=== PATIENT | female | born 1950 | race Caucasian/White ===

== ENCOUNTER → 2020-07-16 11:24 | Outpatient (BNVA) | payer OTHER, SELFPAY | PROVIDERS: PCP Internal Medicine; Visit Provider Internal Medicine Pulmonary Disease | DX: J45.20 Mild intermittent asthma, uncomplicated (principal) | CPT/HCPCS: 99212 ==

== ENCOUNTER → 2020-08-03 09:53 | Outpatient (REF) | payer OTHER, SELFPAY ==
--- NOTE | 2020-08-03 09:59 | CA_ITS ---
Acquisition Time: 2020-08-03 11:15:12 Total Exercise Time: 00:05:02 Test Indications: Chest Pain Medications: SEE CHART Protocol: SONNY Max HR: 155 BPM 104% of Pred: 148 BPM Max BP: 150/080 mmHG Max Work Load: 5.4 METS Exercise stress test using Sonny protocol. Test modified at 4 min, speed and incline decresed. Pt did total of 5 min 2 sec. METS 5.4. Pt became SOB, HX of asthma, denies any other anginal sx. EKG without any arrhythmias, Scooped ST depressions seen inferiorly and laterally. Normotensive response to exercise. Test reviewed with Dr Nunez. Albuterol 2 puffs given to pt at the end of exercise. Recommendation for pt to have lexiscan nuclear d/t ischemic changes during exercise stress test. Pt had lexiscan in 2017. Referred By: Junior Zayas Overread By: Zachary Kennedy
--- NOTE | 2020-08-03 09:59 | ECG_ITS ---
Test Reason : CHEST PAIN Blood Pressure : / mmHG Vent. Rate : 072 BPM Atrial Rate : 072 BPM P-R Int : 126 ms QRS Dur : 080 ms QT Int : 396 ms P-R-T Axes : 064 025 014 degrees QTc Int : 433 ms Normal sinus rhythm RSR' or QR pattern in V1 suggests right ventricular conduction delay Otherwise normal ECG When compared with ECG of 30-MAY-2020 19:57, No significant changes seen Referred By: Junior Zayas Electronically Signed By:HEMAL FLORES MD
== END ==
LOC: HO.CARD 09:53
PROVIDERS: PCP Internal Medicine; Visit Provider Internal Medicine Pulmonary Disease
DX: R07.9 Chest pain, unspecified (principal); I10 Essential (primary) hypertension; I25.10 Atherosclerotic heart disease of native coronary artery without angina pectoris; J45.20 Mild intermittent asthma, uncomplicated
CPT/HCPCS: 93005; 93017

== ENCOUNTER 2020-08-10 07:49 | Outpatient (REF) | payer MEDICARE, SELFPAY ==
[2020-08-10 09:12] LABS: Anion Gap 14 (12-20); Blood Urea Nitrogen 9 mg/dL (9-16); Calcium 8.8 mg/dL (8.4-10.2); Carbon Dioxide 26 mmol/L (22-29); Chloride 105 mmol/L (96-108); Estimated Glomerular Filt Rate > 60; Glucose Random 163 mg/dL (60-115); Potassium 4.2 mmol/l (3.3-5.1); Sodium 141 mmol/L (135-145)
== END 2020-08-10 07:50 | disposition home or self-care (01) ==
LOC: HO.MAMMO 07:49
PROVIDERS: PCP Internal Medicine; Visit Provider Internal Medicine
DX: Z01.818 Encounter for other preprocedural examination (principal); K21.9 Gastro-esophageal reflux disease without esophagitis; I25.10 Atherosclerotic heart disease of native coronary artery without angina pectoris; Z79.4 Long term (current) use of insulin; I10 Essential (primary) hypertension; E11.65 Type 2 diabetes mellitus with hyperglycemia
CPT/HCPCS: 80048

== ENCOUNTER 2020-08-23 13:07 | Outpatient (REF) | payer MEDICARE, SELFPAY ==
--- NOTE | 2020-08-23 14:50 | PFT_ITS ---
FLOWS: FEV1 of 94% of predicted at 1.82 L. FVC 87% of predicted at 2.24 L. FEV1 to FVC ratio of 0.81. Bronchodilator testing not performed. LUNG VOLUMES: Slow vital capacity 96% of predicted at 2.43 L. Expiratory reserve volume 31% of predicted at 0.17 L. Of note, unable to perform lung volumes and FVC maneuvers secondary to the patient's poor compliance with respiratory therapist instructions. Diffusion capacity is mildly decreased, diffusion capacity corrects to normal after adjustment for alveolar ventilation. In comparison to pulmonary function test performed in November of 2013, FEV1 has decreased by 0.27 L; FVC has decreased by 0.36 L. IMPRESSION: No obstructive ventilatory defect. The patient was not able to properly perform lung volume maneuvers. Scott Arriaga MD AP/MODL / [id number]
== END 2020-08-23 13:08 | disposition home or self-care (01) ==
LOC: HO.RESP 13:07
PROVIDERS: PCP Internal Medicine; Visit Provider Internal Medicine Pulmonary Disease
DX: J45.20 Mild intermittent asthma, uncomplicated (principal)
CPT/HCPCS: 94010; 94729

== ENCOUNTER → 2020-09-20 09:21 | Outpatient (BNVA) | payer MEDICARE, SELFPAY | PROVIDERS: PCP Internal Medicine; Visit Provider Nurse Practitioner Gerontology | DX: Z76.89 Persons encountering health services in other specified circumstances (principal) | CPT/HCPCS: Q3014 ==

== ENCOUNTER 2020-09-28 15:54 | Outpatient (REF) | payer OTHER, SELFPAY | END 2020-09-28 15:55 | disposition home or self-care (01) | LOC: HO.LAB 15:54 | PROVIDERS: Visit Provider Internal Medicine | DX: Z20.822 Contact with and (suspected) exposure to COVID-19 (principal) | CPT/HCPCS: 36415; C9803; U0003 ==

== ENCOUNTER → 2020-10-01 07:47 | Outpatient (REF) | payer OTHER, SELFPAY ==
--- NOTE | 2020-10-01 | NM_ITS ---
Myocardial perfusion study Indication: Chest pain to evaluate for myocardial ischemia Technique: The patient was brought in for a Lexiscan perfusion study on 10/01/2020. Patient performed low-level exercise and was injected 0.4 mg of Lexiscan intravenously. Within a minute of injection, 25 mCi of sestamibi was given intravenously. Images were obtained using the SPECT gamma camera interlaced with the gating device. Images were obtained in supine position. Resting perfusion study was performed on 10/04/2020. Patient was administered 25 mCi of sestamibi intravenously at rest. Images were then obtained in supine position. Images obtained with and without CT attenuation. Total DLP 89 mGy-cm. Images were processed with the software and compared side to side in short axis, horizontal long axis and vertical long axis views. Findings: The stress perfusion study showed non attenuated images show normal uptake of radiotracer in all segments of LV myocardium. Attenuation corrected images show mildly reduced uptake in the distal anterior, distal septal and apex of the LV myocardium.. The gated study shows normal LV systolic function with calculated LVEF of 60%. LV cavity is normal size. The gated study shows normal systolic wall thickening and contraction of segments. Resting study shows non attenuated attenuated corrected images show normal uptake of radiotracer in all segments of LV myocardium. Gating at rest reveals normal systolic wall motion with ejection fraction at 67%. The findings are consistent with likely normal myocardial perfusion. NM/NM lyla perf SPECT rest & str Impression: 1. Myocardial perfusion imaging study shows likely normal myocardial perfusion 2. Gated LVEF is 60% 3. Transient ischemic dilatation not present EKG is nondiagnostic for ischemia
--- NOTE | 2020-10-01 07:51 | CA_ITS ---
Acquisition Time: 2020-10-01 08:57:19 Total Exercise Time: 00:02:00 Test Indications: CP Medications: SEE CHART Protocol: LEXISCAN Max HR: 129 BPM 87% of Pred: 148 BPM Max BP: 164/092 mmHG Max Work Load: 1.0 METS Pharmacological stress test using Lexiscan while sitting and kicking her feet. Pt tolerated well, denies any anginal sx. EKG without any arrhythmias, non-diagnostic for ischemia. Nuclear images to follow. Normotensive response to test. Test reviewed with DR. Nunez Referred By: Junior Zayas Overread By: Zachary Kennedy
== END ==
LOC: HO.CARD 07:47
PROVIDERS: PCP Internal Medicine; Visit Provider Internal Medicine
DX: R07.9 Chest pain, unspecified (principal)
CPT/HCPCS: 78452; 93017; A9500; J0280; J2785

== ENCOUNTER 2020-10-14 08:34 | Outpatient (REF) | payer OTHER, SELFPAY ==
[2020-10-14 10:26] LABS: Estimated Average Glucose 148 mg/dL; Hemoglobin A1c % 6.8 %
== END 2020-10-14 08:35 | disposition home or self-care (01) ==
LOC: HO.LAB 08:34
PROVIDERS: PCP Internal Medicine; Referring Provider Internal Medicine; Visit Provider Nurse Practitioner Gerontology
DX: E11.42 Type 2 diabetes mellitus with diabetic polyneuropathy (principal)
CPT/HCPCS: 36415; 83036

== ENCOUNTER → 2020-10-18 09:58 | Outpatient (BNVA) | payer OTHER, SELFPAY | PROVIDERS: PCP Internal Medicine; Visit Provider Internal Medicine | DX: Z76.89 Persons encountering health services in other specified circumstances (principal) | CPT/HCPCS: Q3014 ==

== ENCOUNTER 2020-10-26 08:27 | Outpatient (REF) | payer OTHER, SELFPAY ==
[2020-10-26 09:34] LABS: Calcium 9.2 mg/dL (8.4-10.2)
[2020-10-26 09:37] LABS: Albumin Level 4.1 g/dL (3.5-5.0); Anion Gap 12 (12-20); Blood Urea Nitrogen 11 mg/dL (9-16); Calcium 9.1 mg/dL (8.4-10.2); Carbon Dioxide 28 mmol/L (22-29); Chloride 105 mmol/L (96-108); Estimated Glomerular Filt Rate > 60; Glucose Random 163 mg/dL (60-115); Potassium 4.3 mmol/L (3.3-5.1); Sodium 141 mmol/L (135-145)
[2020-10-26 09:59] LABS: Vitamin D 25-OH Total 35.1 ng/mL (>30)
[2020-10-27 05:16] LABS: DHEA Sulfate 13 mcg/dL (7-177)
[2020-10-27 10:22] LABS: Calcium (PTHI) 9.3 mg/dL (8.6-10.4); PTHI 54 pg/mL (14-64)
[2020-10-27 13:38] LABS: Calcium, Ionized 4.9 mg/dL (4.8-5.6)
[2020-10-28 00:37] LABS: Adrenocorticotropic Hormone <5 pg/mL (6-50)
[2020-10-29 12:36] LABS: Alkaline Phosphatase Bone 18.5 mcg/L (5.6-29.0)
[2020-10-30 15:47] LABS: N-Telopeptide 51 (see note); NTXCreaRU 110 mg/dL (20-275)
[2020-10-31 12:52] LABS: Metanephrine, Free <25 pg/mL (<=57); Normetanephrines, Free 101 pg/mL (<=148); Total Metanephrine, Free 101 pg/mL (<=205)
[2020-11-06 13:46] LABS: Catecholamine Frac, Total 665 pg/mL
[2020-11-11 23:12] LABS: Dexamethasone 364 ng/dL
== END 2020-10-26 08:28 | disposition home or self-care (01) ==
LOC: HO.LAB 08:27
PROVIDERS: PCP Internal Medicine; Visit Provider Internal Medicine
DX: D35.00 Benign neoplasm of unspecified adrenal gland (principal); E55.9 Vitamin D deficiency, unspecified
CPT/HCPCS: 36415; 80048; 80299; 82024; 82040; 82088; 82306; 82310; 82330; 82384; 82523; 82533; 82627; 83835; 83970; 84075; 84100; 84244

== ENCOUNTER 2020-10-28 08:29 | Outpatient (REF) | payer MEDICARE, SELFPAY ==
[2020-10-28 09:09] LABS: MANUAL DIFF FLAG NO
[2020-10-28 09:12] LABS: Basophils Absolute Auto 0.1 X10*3/uL (0.0-0.2); Basophils Percent Auto 1.2 % (0-2); Eosinophils Absolute Auto 0.2 X10*3/uL (0.0-0.4); Eosinophils Percent Auto 2.4 % (0-4); Hematocrit 35.8 % (37-47); Hemoglobin 11.9 g/dl (12.0-16.0); Imm Gran Abs Auto 0.02 X10*3/uL (0.00-0.03); Imm Gran Pct Auto 0.3 % (0.0-0.4); Lymphocytes Absolute Auto 1.9 X10*3/uL (1.2-4.9); Mean Corpuscular HGB Conc 33.2 g/dl (31.0-35.0); Mean Corpuscular Hemoglobin 31.6 pg (27.0-33.0); Mean Platelet Volume 10.5 fL (9.4-12.3); Monocytes Absolute Auto 0.6 X10*3/uL (0.1-1.2); Monocytes Percent Auto 9.1 % (2-11); Platelet Count 289 X10*3/uL (160-400); Red Blood Count 3.77 X10*6/uL (4.20-5.50); Red Cell Distribution Width 13.1 % (11.0-16.0); White Blood Count 6.7 X10*3/uL (4.8-10.8)
[2020-10-28 09:16] LABS: Glucose Urine UA NEG (NEG); Leukocyte Esterase Urine NEG (NEG); Nitrite Urine NEG (NEG); PH 5.5 (5.0-8.0); Specific Gravity - Urine 1.025 (1.005-1.025); Urine Blood NEG (NEG); Urine Ketones NEG (NEG); Urine Protein NEG (NEG-TRACE)
[2020-10-28 09:17] LABS: Appearance Urine CLEAR; Color Urine YELLOW
[2020-10-28 09:23] LABS: Mucus Urine 1+ /LPF; RBC Urine 0-2 /HPF (0); Squamous Epithelial Cell Urine 2+ /LPF; WBC Urine 0-2 /HPF (0-4)
[2020-10-28 09:54] LABS: Creatinine Urine 163.76 mg/dL
[2020-10-28 09:56] LABS: Creatinine Urine 164.26 mg/dL
[2020-10-28 09:59] LABS: Microalbum/Creatinine Ratio Ur 14.6 ug/mg cr
[2020-10-28 10:00] LABS: Alanine Aminotransferase 22 U/L (0-31); Alkaline Phosphatase 86 U/L (39-117); Anion Gap 12 (12-20); Aspartate Amino Transferase 17 U/L (5-31); Bilirubin Total 0.6 mg/dL (0.0-1.0); Blood Urea Nitrogen 9 mg/dL (9-16); Calcium 8.5 mg/dL (8.4-10.2); Carbon Dioxide 27 mmol/L (22-29); Chloride 105 mmol/L (96-108); Cholesterol 206 mg/dL; Estimated Glomerular Filt Rate > 60; Glucose Random 153 mg/dL (60-115); HDL Cholesterol 57 mg/dL; LDL Cholesterol Calculated 128 mg/dl; Sodium 140 mmol/L (135-145); Total Protein 6.5 g/dL (6.5-8.0); Triglycerides 106 mg/dL
[2020-10-28 10:04] LABS: Estimated Average Glucose 157 mg/dL; Hemoglobin A1c % 7.1 %
[2020-10-28 10:22] LABS: Free T4 (Free Thyroxine) 1.14 ng/dL (0.71-1.85); Thyroid Stimulating Hormone 3.24 uIU/mL (0.32-4.0); Vitamin D 25-OH Total 33.9 ng/mL (>30)
[2020-10-28 10:31] LABS: Folate 19.8 ng/mL (> or = 4.0); Vitamin B12 833 pg/mL (200-900)
[2020-10-28 10:37] LABS: Creatinine, mg/dL 147.45
[2020-10-29 06:39] LABS: Total Volume 24 Hour Urine 700 mL
[2020-11-01 15:26] LABS: CATF, 24 Ur Volume 700 mL; CATF-24Ur Creatinine 1.06 g/24 h (0.50-2.15); Catecholamines,Tot. (E+NE) 24U 65 mcg/24 h (26-121); Dopamine, 24 Ur 312 mcg/24 h (52-480); Norepinephrine, 24 Ur 65 mcg/24 h (15-100)
[2020-11-01 22:07] LABS: Metanephrine, Free 24U 93 mcg/24 h (90-315); Normetanephrine, Free 24U 418 mcg/24 h (122-676); Total Metanephrine, Free 24U 511 mcg/24 h (224-832); Total Volume 24U 700 mL
[2020-11-02 14:21] LABS: Cortisol Free, 24 Hr Urine 13.5 mcg/24 h (4.0-50.0); Creatinine, 24 Hr Urine 1.05 g/24 h (0.50-2.15); Total Volume, 24 Hr Urine 700 mL
== END 2020-10-28 08:30 | disposition home or self-care (01) ==
LOC: HO.LAB 08:29
PROVIDERS: Absent Provider Internal Medicine; PCP Internal Medicine; Visit Provider Internal Medicine
DX: D35.00 Benign neoplasm of unspecified adrenal gland (principal); I25.10 Atherosclerotic heart disease of native coronary artery without angina pectoris; E11.65 Type 2 diabetes mellitus with hyperglycemia; Z79.4 Long term (current) use of insulin; E78.00 Pure hypercholesterolemia, unspecified
CPT/HCPCS: 36415; 80053; 80061; 81001; 82043; 82306; 82384; 82530; 82570; 82607; 82746; 83036; 83835; 84439; 84443; 85025

== ENCOUNTER 2020-10-29 11:04 | Outpatient (REF) | payer MEDICARE, SELFPAY ==
--- NOTE | ~2020-10-29 | MM_ITS ---
EXAMINATION: BONE DENSITOMETRY CLINICAL INDICATION: Osteoporosis. COMPARISON: Previous BD dated 09/27/2018 and baseline BD dated 06/07/2007. TECHNIQUE: Using a [employer] DXA System (software version: 13.1) manufactured by [employer], dual-energy x-ray absorptiometry was performed of the lumbar spine and left hip. The images are of good technical quality. Summary results are attached. FINDINGS: AP SPINE L1-L4: Current: BMD 1.025 g/cm2, Z-score 0.0, T-score -1.3, osteopenia, 1.8% increase from previous, 19.7% increase from baseline (<5% change is not significant). Prior: BMD 1.007 g/cm2. Baseline: BMD 0.856 g/cm2. LEFT FEMUR, NECK: Current: BMD 0.773 g/cm2, Z-score -0.4, T-score -1.9, osteopenia. Prior: BMD 0.866 g/cm2. Baseline: BMD 0.982 g/cm2. LEFT FEMUR, TOTAL: Current: BMD 0.835 g/cm2, Z-score -0.1, T-score -1.4, osteopenia, 7.7% decrease from previous, 19.6% decrease from baseline (<5% change is not significant). Prior: BMD 0.905 g/cm2. Baseline: BMD 1.039 g/cm2. IDENTIFIED RISK FACTORS: Osteoporosis, rheumatoid arthritis, menopause, secondary osteoporosis. HISTORY OF FRACTURE: None listed. MEDICATIONS: Vitamin D. MM/XR DEXA axial skeleton IMPRESSION: 1. DIAGNOSIS: Osteopenia based on the lowest T-score value of -1.9 in the femoral neck applying World Health Organization criteria. 2. 10-YEAR FRACTURE RISK PREDICTION, FRAX: Major osteoporotic fracture (clinical spine, forearm, hip or shoulder) 8.6%. Hip fracture 1.9%. 3. Treatment Recommendations: NOF guidelines recommend consideration for treatment in postmenopausal women and men age 50 and older presenting with the following: -A hip or vertebral (clinical or morphometric) fracture. -T-score less than or equal to -2.5 at the femoral neck or spine after appropriate evaluation to exclude secondary causes. -Low bone mass at the hip or spine and a 10-year fracture probability by FRAX of greater than or equal to 3% for hip fracture or greater than or equal to 20% for major osteoporotic fracture based on the [place] adapted WHO algorithm. 4. Other Recommendations: All treatment decisions require clinical judgment and consideration of individual patient factors, including patient preferences, comorbidities, previous drug use, risk factors not captured in the FRAX model (e.g. frailty, falls, vitamin D deficiency, increased bone turnover, interval significant decline in bone density) and possible under or overestimation of fracture risk by FRAX. Additional medical evaluation for secondary cause of low bone mineral density may be appropriate. FUTURE SCAN RECOMMENDATION: People with diagnosed cases of osteoporosis or at high risk for fracture should have regular bone mineral density tests. For patients eligible for Medicare, routine testing is allowed once every 2 years. The testing frequency can be increased to one year for patients who have rapidly progressing disease, those who are receiving or discontinuing medical therapy to restore bone mass, or have additional risk factors.
== END 2020-10-29 11:05 | disposition home or self-care (01) ==
LOC: HO.MAMMO 11:04
PROVIDERS: PCP Internal Medicine; Visit Provider Internal Medicine
DX: M81.0 Age-related osteoporosis without current pathological fracture (principal); Z78.0 Asymptomatic menopausal state; M06.9 Rheumatoid arthritis, unspecified; Z79.899 Other long term (current) drug therapy
CPT/HCPCS: 77080

== ENCOUNTER 2020-11-08 07:58 | Outpatient (REF) | payer MEDICARE, SELFPAY ==
--- NOTE | ~2020-11-08 | CT_ITS ---
EXAMINATION: CT ABDOMEN WITHOUT AND WITH CONTRAST CLINICAL INFORMATION: Benign neoplasm of adrenal gland COMPARISON: CT abdomen and pelvis with contrast 07/29/2018. TECHNIQUE: Contiguous axial thin section helical images of the abdomen were performed before and after the administration of oral contrast and 85 mL of Omnipaque 350 intravenous contrast. 10 minute delayed images were obtained. The data set was reformatted in the coronal and sagittal planes and reviewed on an independent workstation. This CT examination was performed using dose optimization techniques as appropriate, variously including the following: *Automated exposure control *Adjustment of mA and/or kV according to patient size (this includes techniques or standardized protocols for targeted exams where dose is matched to indication/reason for exam; i.e. extremities or head) *Use of iterative reconstruction technique DLP: 626 mGy-cm FINDINGS: LUNG BASES: The lung bases are clear. Suspect small hiatal hernia. The heart size is normal. LIVER, GALLBLADDER, AND BILIARY TREE: The liver is homogeneous in density, normal size, shape and contour. No focal lesion or intrahepatic ductal dilatation seen. The gallbladder has been surgically removed. PANCREAS: The pancreas is homogeneous in density and normal size. SPLEEN: The spleen is normal size and density. ADRENAL GLANDS AND KIDNEYS: There is a hypodense left adrenal lesion measuring 3.2 x 2.8 x 2.90 cm. It measures -8.4 Hounsfield units on precontrast, 49 Hounsfield units on postcontrast exam and 11 Hounsfield units on delayed exam. The absolute washout is 66.2% and the relative washout measures 77.6%. These findings are consistent with adenoma. Both kidneys are normal size, shape and position. There is a moderate size exophytic cyst, lower pole left kidney, measuring 3.0 x 2.8 x 3.0 cm and 9 Hounsfield units. No radiopaque renal calculi or hydroureteronephrosis seen. Opacified bilateral kidney pelvises and the ureters are of normal caliber. BOWEL LOOPS: There is scattered stool seen in the colon without any significant distention. The small bowel loops are normal caliber. There is no free air or free fluid. No inflammatory process seen in the abdomen. LYMPH NODES: Normal. VASCULAR: Unremarkable. BONES: There are degenerative disc changes with ventral spondylosis L1-L2 disc level. No lytic or sclerotic process seen. CT/CT abdomen wo/w con IMPRESSION: 1. A 3.2 cm left adrenal benign adenoma. This same size measured on the previous exam 07/29/2018. 2. Exophytic cyst, lower pole left kidney. No radiopaque calculi or hydroureteronephrosis seen. 3. Mild constipation.
[2020-11-08] MEDS: iohexoL 350 MG/ML 100 ML INFUS..BTL 85 ML IV (09:38)
== END 2020-11-08 07:59 | disposition home or self-care (01) ==
LOC: HO.CT 07:58
PROVIDERS: PCP Internal Medicine; Visit Provider Internal Medicine
DX: D35.00 Benign neoplasm of unspecified adrenal gland (principal)
CPT/HCPCS: 74170; Q9967

== ENCOUNTER → 2020-12-20 09:52 | Outpatient (BNVA) | payer MEDICARE, SELFPAY | PROVIDERS: PCP Internal Medicine; Visit Provider Internal Medicine | DX: Z13.89 Encounter for screening for other disorder (principal) | CPT/HCPCS: Q3014 ==

== ENCOUNTER 2020-12-22 09:29 | Outpatient (REF) | payer MEDICARE, SELFPAY ==
[2020-12-22 11:17] LABS: Anion Gap 12 (12-20); Blood Urea Nitrogen 12 mg/dL (9-16); Calcium 9.2 mg/dL (8.4-10.2); Carbon Dioxide 26 mmol/L (22-29); Chloride 105 mmol/L (96-108); Estimated Glomerular Filt Rate > 60; Glucose Random 147 mg/dL (60-115); Potassium 4.3 mmol/L (3.3-5.1); Sodium 139 mmol/L (135-145)
[2020-12-27 12:37] LABS: Renin 0.11 ng/mL/h (0.25-5.82)
== END 2020-12-22 09:30 | disposition home or self-care (01) ==
LOC: HO.LAB 09:29
PROVIDERS: PCP Internal Medicine; Visit Provider Internal Medicine
DX: D35.00 Benign neoplasm of unspecified adrenal gland (principal)
CPT/HCPCS: 36415; 80048; 82088; 84244

== ENCOUNTER 2021-01-19 12:03 | Emergency (ER) | payer MEDICARE, SELFPAY ==
--- NOTE | ~2021-01-19 | CT_ITS ---
EXAMINATION: CT ABDOMEN AND PELVIS WITH CONTRAST CLINICAL INFORMATION: Left lower quadrant tender to touch. Pain. COMPARISON: None TECHNIQUE: Multidetector volumetric images were obtained from the superior aspect of the liver through the pubic symphysis following administration 85 mL of Omnipaque 350 intravenous contrast. Sagittal and coronal reformatted images were obtained on the technologist's workstation. Oral contrast: No This CT examination was performed using dose optimization techniques as appropriate, variously including the following: *Automated exposure control *Adjustment of mA and/or kV according to patient size (this includes techniques or standardized protocols for targeted exams where dose is matched to indication/reason for exam; i.e. extremities or head) *Use of iterative reconstruction technique DLP: 590 mGy-cm FINDINGS: LUNG BASES: There is bibasilar patchy haziness likely atelectasis. Heart size is normal. There is a small hiatal hernia or mural thickening of distal esophagus. LIVER, GALLBLADDER, AND BILIARY TREE: The liver is normal in size, shape, and attenuation. No focal hepatic lesion or biliary ductal dilatation is present. Gallbladder has been surgically removed. PANCREAS: Unremarkable. SPLEEN: Unremarkable. ADRENAL GLANDS: There is a 3.2 x 2.8 cm hypodense lesion measuring 33 Hounsfield units on contrast enhanced exam. The right adrenal gland is unremarkable. KIDNEYS AND URETERS: The kidneys are normal in size, shape, and attenuation. No hydronephrosis, hydroureter, or calculi seen. No perinephric stranding. BLADDER: There is a 3.3 x 2.8 cm exophytic cyst lower pole left kidney. GASTROINTESTINAL TRACT: There is scattered stool and gas seen throughout the colon without any significant distention. The small bowel loops are normal caliber. Appendix is normal caliber. No inflammatory changes seen in the abdomen. ABDOMINAL WALL: No significant hernia is appreciated. LYMPH NODES: Normal. VASCULAR: The abdominal aorta is normal caliber. No aneurysmal dilatation seen. PELVIC VISCERA: The uterus is anteverted and appears unremarkable. No free air or free fluid seen. No evidence of inguinal hernia. OSSEOUS STRUCTURES: There is mild degenerative disc changes with vacuum disc phenomena L5-S1 and L1 S2 disc levels with mild ventral spondylosis. No lytic or sclerotic process seen. CT/CT abdomen pelvis w con IMPRESSION: Colonic diverticulosis slightly prominent in sigmoid colon but no mural thickening or pericolic fat stranding seen. Left adrenal enhancing 3.2 cm lesion. Exophytic left renal cyst. Small hiatal hernia or mural thickening distal esophagus
[2021-01-19 12:06] VITALS: BP 160/84; PULSE 79; RESP 17; TEMP 36.4; O2SAT 100; BMI 31.4
[2021-01-19 13:05] LABS: MANUAL DIFF FLAG NO
[2021-01-19 13:09] LABS: Basophils Absolute Auto 0.1 X10*3/uL (0.0-0.2); Basophils Percent Auto 1.1 % (0-2); Eosinophils Absolute Auto 0.2 X10*3/uL (0.0-0.4); Eosinophils Percent Auto 3.9 % (0-4); Hematocrit 38.1 % (37-47); Hemoglobin 12.7 g/dl (12.0-16.0); Imm Gran Abs Auto 0.01 X10*3/uL (0.00-0.03); Imm Gran Pct Auto 0.2 % (0.0-0.4); Lymphocytes Absolute Auto 1.7 X10*3/uL (1.2-4.9); Lymphocytes Percent Auto 26.9 % (20-40); Mean Corpuscular HGB Conc 33.3 g/dl (31.0-35.0); Mean Corpuscular Hemoglobin 31.2 pg (27.0-33.0); Mean Corpuscular Volume 93.6 fL (80-98); Mean Platelet Volume 10.3 fL (9.4-12.3); Monocytes Absolute Auto 0.6 X10*3/uL (0.1-1.2); Monocytes Percent Auto 10.1 % (2-11); Neutrophils Absolute Auto 3.6 X10*3/uL (2.0-8.3); Neutrophils Percent Auto 57.8 % (45-73); Platelet Count 285 X10*3/uL (160-400); Red Blood Count 4.07 X10*6/uL (4.20-5.50); Red Cell Distribution Width 13.9 % (11.0-16.0); White Blood Count 6.1 X10*3/uL (4.8-10.8)
[2021-01-19 13:11] LABS: Glucose Urine UA NEG (NEG); Leukocyte Esterase Urine NEG (NEG); Nitrite Urine NEG (NEG); Urine Blood NEG (NEG); Urine Ketones NEG (NEG); Urine Protein NEG (NEG-TRACE)
[2021-01-19 13:13] LABS: Appearance Urine CLEAR; Color Urine YELLOW
--- NOTE | 2021-01-19 13:31 | ED.BACK ---
HPI - Back Pain/Injury General Chief Complaint: Back Pain/Injury Stated Complaint: low back and leg pain Time Seen by Provider: 01/19/21 12:27 Source: patient Mode of arrival: ambulatory History of Present Illness HPI Narrative: 70-year-old female with a past medical history of asthma, CAD, GERD, hypertension, tubal ligation, cholecystectomy, diabetes, vitamin-D deficiency presenting to the ED complaining of acute on chronic left lower back pain radiating down left lower extremity x months. Takes Tylenol without relief. Also reports abdominal discomfort and diarrhea x a long time. Denies known injury/trauma or falls, numbness, tingling, weakness, urinary incontinence/retention, nausea/vomiting, dysuria/hematuria MD elicited complaint: back pain Related Data Home Medications Medication Instructions Recorded Confirmed cyanocobalamin (vitamin B-12) 1,000 mcg PO DAILY 06/29/20 12/20/20 1,000 mcg capsule insulin glargine 100 unit/mL 18 unit SUBCUT DAILY ml 06/29/20 12/20/20 subcutaneous solution metoclopramide HCl 5 mg tablet 5 mg PO .T.i.d. a.c. tab 09/06/20 12/20/20 blood sugar diagnostic #10 ea 09/20/20 12/20/20 lancets 33 gauge #100 ea 09/20/20 12/20/20 latanoprost 0.005 % eye drops 1 drp OPHTHALMIC (EYE) BEDTIME 09/20/20 12/20/20 timolol maleate 0.5 % eye drops 1 drp OPHTHALMIC (EYE) QAM 09/20/20 12/20/20 Previous Rx's Medication Instructions Recorded albuterol sulfate 2.5 mg CONTINUOUS NEBULIZATION 06/29/20 Q4-6H PRN #180 ml nebulizers #1 ea 06/29/20 fluticasone 250 mcg-salmeterol 50 1 inh INHALATION BID 30 Days #1 ea 07/16/20 mcg/dose blistr powdr for inhalation sennosides 8.6 mg tablet 8.6 mg PO BID #60 cap 07/27/20 ezetimibe 10 mg tablet 10 mg PO DAILY #90 cap 09/21/20 albuterol sulfate 90 mcg/actuation 2 puff PO Q6H PRN #8.5 cap 09/24/20 aerosol inhaler cholecalciferol (vitamin D3) 50 50 mcg PO DAILY #30 cap 10/18/20 mcg (2,000 unit) capsule pantoprazole 40 mg tablet,delayed 40 mg PO BID 30 Days #60 tab 10/18/20 release metformin 500 mg tablet 500 mg PO BID #180 cap 11/01/20 metoprolol tartrate 100 mg tablet 100 mg PO BID #60 tab 11/23/20 tizanidine 4 mg tablet 4 mg PO TID PRN #45 cap 01/03/21 fluticasone propionate 50 2 spray INTRANASAL DAILY #3 ea 01/04/21 mcg/actuation nasal spray,suspension dulaglutide 1.5 mg/0.5 mL 1.5 mg SUBCUT QWEEK #6 ml 01/10/21 subcutaneous pen injector acetaminophen [Tylenol Extra 500 mg PO Q6H PRN #20 tab 01/19/21 Strength] cyclobenzaprine 5 mg PO Q8H PRN 5 Days #14 tab 01/19/21 lidocaine [Lidoderm] 1 patch TOPICAL DAILY PRN #30 ea 01/19/21 MDD remove after 12 hours Allergies Allergy/AdvReac Type Severity Reaction Status Date / Time aspirin [Aspirin] Allergy Mild STOMACH Verified 01/19/21 12:09 PAIN, abdominal pain Penicillins Allergy Mild NAUSEA/STOMACH Verified 01/19/21 12:09 PAIN atorvastatin Allergy Unknown Unknown Verified 01/19/21 12:09 hydrochlorothiazide Allergy Unknown hypokalemia Verified 01/19/21 12:09 lisinopril Allergy Unknown ? swelling Verified 01/19/21 12:09 Motrin Allergy Unknown Unknown Verified 01/19/21 12:09 pravastatin Allergy Unknown Unknown Verified 01/19/21 12:09 rosuvastatin Allergy Unknown Unknown Verified 01/19/21 12:09 simvastatin Allergy Unknown Unknown Verified 01/19/21 12:09 ibuprofen [From MOTRIN] AdvReac Unknown ABD PAIN Verified 01/19/21 12:09 Review of Systems Review of Systems: Constitutional: No Fever, No Chills Cardiovascular: No Chest Pain, No SOB Respiratory: No Cough, No Dyspnea Gastrointestinal: No Nausea, No Vomiting, + Chronic Diarrhea, No Constipation, + Abdominal pain Genitourinary: No irregular bleeding, No Dysuria, No Urinary Frequency, No Hematuria, No Urinary Incontinence/retention, No Flank Pain Musculoskeletal: + low back pain pain, No Myalgias, No Joint Swelling Skin: No Skin Lesions, No rash Neuro: No Weakness, No Numbness, No Paresthesias Yes all other systems are reviewed and are negative Neurologic: Denies Sensory deficit (Neuro) [facility] Past Medical History Attestation statement: The following information was validated with the patient. Medical History (Updated 01/19/21 @ 16:10 by LEOBARDO Alcantara) Adrenal adenoma Asthma Coronary artery disease Fracture of toe of left foot GERD (gastroesophageal reflux disease) Hypercholesterolemia Hypertension Left renal mass Obesity (BMI 30-39.9) Osteoarthritis of both knees Osteopenia Osteoporosis Positive MAGGIE (antinuclear antibody) Pulmonary nodule Restless leg syndrome Tubal ligation evaluation Type 2 diabetes mellitus with diabetic polyneuropathy Type 2 diabetes mellitus with hyperglycemia Ulnar neuropathy Vitamin D deficiency Surgical History History of breast biopsy History of cholecystectomy History of esophagogastroduodenoscopy (EGD) History of laparoscopic cholecystectomy History of tubal ligation Hx of colonoscopy Family History Family History Mother HTN (hypertension) Diabetes Brother Lung cancer Sister Cancer, colon Daughter Uterine cancer Father Prostate cancer Social History Social History Household Members: Spouse Alcohol intake: never Smoking Status: Former smoker Advance Directives: No Advance Directives Information Provided: Yes Physical Exam Vital Signs: Vital Signs: Last Vital Signs Temp 97.2 F 01/19/21 15:17 Pulse 74 01/19/21 15:17 Resp 16 01/19/21 15:17 BP 194/85 H 01/19/21 15:17 Pulse Ox 98 01/19/21 15:17 Body Mass Index 31.4 Const: General: cooperative and healthy appearing Orientation/consciousness: patient oriented x3 Limitations: no limitations HENMT: Head: Yes normal to inspection Ears: hearing grossly normal bilaterally General nose exam: Normal external nose present Face and sinus: Yes normal facial exam Eyes: General: appearance normal, both eyes and all related structures EOM: EOMs intact bilaterally Neck: Neck: Yes normal visual inspection Resp: Effort & Inspection: normal respiratory effort Auscultation: clear to auscultation bilaterally Cardio: Rate: regular rate Heart sounds: S1 normal heart sound present and S2 normal heart sound present GI: Inspection: Yes normal to inspection Palpation (GI): Soft to palpation, Tenderness to palpation present (GI) in the epigastrum, in the LLQ and in the RUQ, no guarding and not rigid : General: Yes no CVA tenderness Back/Spine/Pelvis: Other: No midline thoracic/lumbar spinous tenderness or step-off/deformity. + left lower lumbar/buttock MSK ttp Back: no CVA tenderness Skin: Rashes: no rashes Wounds: no wounds Neuro: Other: No saddle anesthesia General: patient oriented x3, gait normal, tone normal and moves all extremities Gait exam (Neuro): Normal gait present Motor exam (neuro): 5/5 motor strength present throughout Sensory Exam: No Sensory deficit (Neuro) Extrem: General: Yes normal to inspection Course Course Course Narrative: -[id number]-- no leukocytosis, labs unremarkable, UA negative CT abdomen pelvis w con IMPRESSION: Colonic diverticulosis slightly prominent in sigmoid colon but no mural thickening or pericolic fat stranding seen. Left adrenal enhancing 3.2 cm lesion. Exophytic left renal cyst. Small hiatal hernia or mural thickening distal esophagus >> results discussed with patient including worrisome signs and symptoms and strict return precautions. Patient is to follow-up with her PCP. She verbalized understanding feel safe discharge home MDM - Back Pain/Injury MDM Narrative Medical decision making narrative: 70-year-old female with a past medical history of asthma, CAD, GERD, hypertension, tubal ligation, cholecystectomy, diabetes, vitamin-D deficiency presenting to the ED complaining of acute on chronic left lower back pain radiating down left lower extremity x months. Also reports abdominal discomfort and diarrhea x a long time. On exam VSS, NAD/nontoxic, no midline spinous tenderness through or red flag symptoms. + left-sided lumbar/buttock MSK tenderness on exam, abdomen soft with epigastric/RUQ and LLQ ttp, no rebound or guarding. Concern for MSK back pain, unlikely fracture/dislocation, or cauda equina/cord compression. Abdominal pain concerning for pancreatitis/diverticulitis or gastritis. Patient with prior cholecystectomy. Plan: Labs, UA, CT AP, IVF, symptomatic treatment, reassess Medical Records Attestation: I reviewed the patient's medical records. Lab Data Attestation: I reviewed the patient's lab results. Result diagrams: 05/12/21 12:56 01/19/21 12:56 Labs: Lab Results 01/19/21 01/19/21 01/19/21 Range/Units 12:56 12:56 12:56 WBC 6.1 (4.8-10.8) X10*3/uL RBC 4.07 L (4.20-5.50) X10*6/uL Hgb 12.7 (12.0-16.0) g/dl Hct 38.1 (37-47) % MCV 93.6 (80-98) fL MCH 31.2 (27.0-33.0) pg MCHC 33.3 (31.0-35.0) g/dl RDW 13.9 (11.0-16.0) % Plt Count 285 (160-400) X10*3/uL MPV 10.3 (9.4-12.3) fL Immature Gran % (Auto) 0.2 (0.0-0.4) % Neut % (Auto) 57.8 (45-73) % Lymph % (Auto) 26.9 (20-40) % Snyder % (Auto) 10.1 (2-11) % Eos % (Auto) 3.9 (0-4) % Baso % (Auto) 1.1 (0-2) % Lymph # (Auto) 1.7 (1.2-4.9) X10*3/uL Snyder # (Auto) 0.6 (0.1-1.2) X10*3/uL Eos # (Auto) 0.2 (0.0-0.4) X10*3/uL Baso # (Auto) 0.1 (0.0-0.2) X10*3/uL Abs Immat Gran (auto) 0.01 (0.00-0.03) X10*3/uL Absolute Neuts (auto) 3.6 (2.0-8.3) X10*3/uL Absolute Nucleated RBC 0.000 (0.0-0.012) X10*3/uL Nucleated RBC % (auto) 0.0 (0.0-0.2) /100WBC Hold Blue Top SEE NOTE Sodium 140 (135-145) mmol/L Potassium 3.9 (3.3-5.1) mmol/L Chloride 103 (96-108) mmol/L Carbon Dioxide 28 (22-29) mmol/L Anion Gap 13 (12-20) BUN 8 L (9-16) mg/dL Creatinine 0.70 (0.5-1.4) mg/dL Estim Creat Clear Calc 70.2 Estimated GFR > 60 Random Glucose 105 (60-115) mg/dL Calcium 9.2 (8.4-10.2) mg/dL Magnesium 1.7 (1.6-2.6) mg/dL Total Bilirubin 0.5 (0.0-1.0) mg/dL Direct Bilirubin 0.2 (0.0-0.5) mg/dL AST 18 (5-31) U/L ALT 22 (0-31) U/L Alkaline Phosphatase 85 (39-117) U/L Total Protein 6.7 (6.5-8.0) g/dL Albumin 4.0 (3.5-5.0) g/dL Lipase 25 (8-78) U/L Hold Yellow Top Urine Color Urine Appearance Urine pH (5.0-8.0) Ur Specific [place] (1.005-1.025) Urine Protein (NEG-TRACE) MG/DL Urine Glucose (UA) (NEG) MG/DL Urine Ketones (NEG) MG/DL Urine Blood (NEG) Urine Nitrite (NEG) Ur Leukocyte Esterase (NEG) 01/19/21 01/19/21 Range/Units 12:58 12:58 WBC (4.8-10.8) X10*3/uL RBC (4.20-5.50) X10*6/uL Hgb (12.0-16.0) g/dl Hct (37-47) % MCV (80-98) fL MCH (27.0-33.0) pg MCHC (31.0-35.0) g/dl RDW (11.0-16.0) % Plt Count (160-400) X10*3/uL MPV (9.4-12.3) fL Immature Gran % (Auto) (0.0-0.4) % Neut % (Auto) (45-73) % Lymph % (Auto) (20-40) % Snyder % (Auto) (2-11) % Eos % (Auto) (0-4) % Baso % (Auto) (0-2) % Lymph # (Auto) (1.2-4.9) X10*3/uL Snyder # (Auto) (0.1-1.2) X10*3/uL Eos # (Auto) (0.0-0.4) X10*3/uL Baso # (Auto) (0.0-0.2) X10*3/uL Abs Immat Gran (auto) (0.00-0.03) X10*3/uL Absolute Neuts (auto) (2.0-8.3) X10*3/uL Absolute Nucleated RBC (0.0-0.012) X10*3/uL Nucleated RBC % (auto) (0.0-0.2) /100WBC Hold Blue Top Sodium (135-145) mmol/L Potassium (3.3-5.1) mmol/L Chloride (96-108) mmol/L Carbon Dioxide (22-29) mmol/L Anion Gap (12-20) BUN (9-16) mg/dL Creatinine (0.5-1.4) mg/dL Estim Creat Clear Calc Estimated GFR Random Glucose (60-115) mg/dL Calcium (8.4-10.2) mg/dL Magnesium (1.6-2.6) mg/dL Total Bilirubin (0.0-1.0) mg/dL Direct Bilirubin (0.0-0.5) mg/dL AST (5-31) U/L ALT (0-31) U/L Alkaline Phosphatase (39-117) U/L Total Protein (6.5-8.0) g/dL Albumin (3.5-5.0) g/dL Lipase (8-78) U/L Hold Yellow Top See Note Urine Color YELLOW Urine Appearance CLEAR Urine pH 6.0 (5.0-8.0) Ur Specific [place] 1.020 (1.005-1.025) Urine Protein NEG (NEG-TRACE) MG/DL Urine Glucose (UA) NEG (NEG) MG/DL Urine Ketones NEG (NEG) MG/DL Urine Blood NEG (NEG) Urine Nitrite NEG (NEG) Ur Leukocyte Esterase NEG (NEG) Discharge Plan Discharge Clinical Impression: Strain of lumbar region, Abdominal pain Patient Disposition: Home, Self-Care Instructions: Acute Low Back Pain (ED), Abdominal Pain (ED) Additional Instructions: Your blood work was reassuring today in the ED Your CT scan did not show any acute findings or infection. You do have a 3.2 cm lesion on her left adrenal gland. You should follow-up with urology for this Your back pain is likely musculoskeletal Flexeril is a muscle relaxer, take at night as it makes you drowsy, do not drive, drink alcohol, or operate machinery while taking it Lidoderm patches are numbing patches, apply to painful area In addition take Tylenol at home If symptoms persist or worsen, pain becomes unbearable, you developed urinary retention or incontinence, or weakness return to the ED Prescriptions: New cyclobenzaprine 5 mg tablet 5 mg PO Q8H PRN (Reason: pain (scale score 7-10)) 5 Days Qty: 14 RF: 0 lidocaine [Lidoderm] 5 % adhesive patch,medicated 1 patch topical DAILY MDD remove after 12 hours PRN (Reason: pain) Qty: 30 RF: 0 acetaminophen [Tylenol Extra Strength] 500 mg tablet 500 mg PO Q6H PRN (Reason: pain or fever) Qty: 20 RF: 0 No Action sennosides [senna] 8.6 mg tablet 8.6 mg PO BID Qty: 60 RF: 11 ezetimibe 10 mg tablet 10 mg PO DAILY Qty: 90 RF: 3 albuterol sulfate 90 mcg/actuation HFA aerosol inhaler 2 puff PO Q6H PRN (Reason: for muscle spasm) Qty: 8.5 RF: 0 cholecalciferol (vitamin D3) 50 mcg (2,000 unit) capsule 50 mcg PO DAILY Qty: 30 RF: 11 pantoprazole 40 mg tablet,delayed release (DR/EC) 40 mg PO BID 30 Days Qty: 60 RF: 5 metformin 500 mg tablet 500 mg PO BID Qty: 180 RF: 3 tizanidine 4 mg tablet 4 mg PO TID PRN (Reason: for cramps) Qty: 45 RF: 5 fluticasone propionate 50 mcg/actuation spray,suspension 2 spray intranasal DAILY Qty: 3 RF: 3 Trulicity 1.5 mg/0.5 mL pen injector 1.5 mg subcut QWEEK Qty: 6 RF: 0 Lantus U-100 Insulin 100 unit/mL solution 18 unit subcut DAILY RF: 0 cyanocobalamin (vitamin B-12) 1,000 mcg capsule 1,000 mcg PO DAILY RF: 0 (DME) Altera Nebulizer System Misc See Rx Instructions .ROUTE .MEDSUPPLY Qty: 1 RF: 0 albuterol sulfate 2.5 mg /3 mL (0.083 %) solution for nebulization 2.5 mg continuous nebulization Q4-6H PRN (Reason: bronchospasm) Qty: 180 RF: 3 metoprolol tartrate 100 mg tablet 100 mg PO BID Qty: 60 RF: 3 fluticasone propion-salmeterol [Wixela Inhub] 250-50 mcg/dose blister with device 1 inh inhalation BID 30 Days Qty: 1 RF: 6 metoclopramide HCl [Reglan] 5 mg tablet 5 mg PO .T.i.d. a.c. RF: 0 latanoprost 0.005 % drops 1 drp ophthalmic (eye) BEDTIME RF: 0 timolol maleate 0.5 % drops 1 drp ophthalmic (eye) QAM RF: 0 (DME) lancets 33 gauge [facility] [place] See Rx Instructions ea .ROUTE TID Qty: 100 RF: 0 (DME) OneTouch Verio test strips Strip See Rx Instructions ea Not Applicable TID Qty: 10 RF: 0 Referrals: Po,Junior Galarza MD [Primary Care Provider] - 3 days Print Language: Israeli
[2021-01-19] MEDS: 0.9 % Sodium Chloride 1,000 ML 999 ML IVCONT (13:33)
[2021-01-19 13:36] LABS: Alanine Aminotransferase 22 U/L (0-31); Alkaline Phosphatase 85 U/L (39-117); Anion Gap 13 (12-20); Aspartate Amino Transferase 18 U/L (5-31); Bilirubin Direct 0.2 mg/dL (0.0-0.5); Bilirubin Total 0.5 mg/dL (0.0-1.0); Blood Urea Nitrogen 8 mg/dL (9-16); Calcium 9.2 mg/dL (8.4-10.2); Carbon Dioxide 28 mmol/L (22-29); Chloride 103 mmol/L (96-108); Creatinine Clr Calc Pharmacy 70.2; Estimated Glomerular Filt Rate > 60; Glucose Random 105 mg/dL (60-115); Lipase 25 U/L (8-78); Magnesium 1.7 mg/dL (1.6-2.6); Potassium 3.9 mmol/L (3.3-5.1); Sodium 140 mmol/L (135-145); Total Protein 6.7 g/dL (6.5-8.0)
[2021-01-19] MEDS: Ketorolac Tromethamine 15 MG/ML VIAL IVPUSH (13:40)
[2021-01-19] MEDS: Famotidine/PF 20 MG/2 ML VIAL IVPUSH (14:08)
[2021-01-19] MEDS: Magnesium Hydrox/Alum Hydrox 30 ML ORAL.SUSP PO (14:08)
--- NOTE | 2021-01-19 14:13 | PC.NURSE ---
LEOBARDO MEJIA IN TO ASSESS, PT C/O LLQ/RUQ AND EPIGASTRIC PAIN, LABS/CT PERFORMED, MEDICATED ORDERED, IV FLUIDS INFUSING W/O APPARENT INCIDENT
[2021-01-19] MEDS: iohexoL 350 MG/ML 100 ML INFUS..BTL IV (14:40)
[2021-01-19 15:17] VITALS: BP 194/85; PULSE 74; RESP 16; TEMP 36.2; O2SAT 98
== END 2021-01-19 16:41 | disposition home or self-care (01) ==
PROVIDERS: Physician Assistant; Emergency Provider Emergency Medicine Emergency Medical Services; PCP Internal Medicine
DX: R10.32 Left lower quadrant pain (principal); R10.11 Right upper quadrant pain; R10.13 Epigastric pain; S39.012A Strain of muscle, fascia and tendon of lower back, initial encounter; X58.XXXA Exposure to other specified factors, initial encounter; M54.42 Lumbago with sciatica, left side; R93.5 Abnormal findings on diagnostic imaging of other abdominal regions, including retroperitoneum; K57.30 Diverticulosis of large intestine without perforation or abscess without bleeding; E27.9 Disorder of adrenal gland, unspecified; Q61.01 Congenital single renal cyst; K44.9 Diaphragmatic hernia without obstruction or gangrene; I10 Essential (primary) hypertension; E78.00 Pure hypercholesterolemia, unspecified; E11.9 Type 2 diabetes mellitus without complications; Z87.891 Personal history of nicotine dependence; Z98.51 Tubal ligation status; Z90.49 Acquired absence of other specified parts of digestive tract; Y93.9 Activity, unspecified; Y92.9 Unspecified place or not applicable; Y99.9 Unspecified external cause status; Z79.899 Other long term (current) drug therapy; Z79.4 Long term (current) use of insulin
CPT/HCPCS: 36415; 74177; 80048; 80076; 81003; 83690; 83735; 85025; 96361; 96374; 96375; 99284; J1885; Q9967

== ENCOUNTER → 2021-02-01 14:37 | Outpatient (BNVA) | payer MEDICARE, SELFPAY | PROVIDERS: PCP Internal Medicine; Visit Provider Urology | DX: N28.1 Cyst of kidney, acquired (principal) | CPT/HCPCS: 99202 ==

== ENCOUNTER 2021-02-08 11:42 | Outpatient (REF) | payer MEDICARE, SELFPAY ==
--- NOTE | ~2021-02-08 | MM_ITS ---
EXAMINATION: MM SCREENING DIGITAL BREAST TOMOSYNTHESIS, BILATERAL CLINICAL INFORMATION: Screening. Asymptomatic. The lifetime risk of breast cancer based on the Tyrer-Cuzick Model is 2%. COMPARISON: Mammography: 04/14/2019, 02/22/2018, 02/06/2017 TECHNIQUE: Digital breast tomosynthesis is performed in both the craniocaudal and mediolateral oblique views along with computer-aided detection (CAD). Synthesized 2D images are generated from the tomosynthesis. FINDINGS: The breasts are almost entirely fatty (ACR BI-RADS breast composition Category a). Background stromal markings are stable. There is chronic left nipple ring traction similar to prior exams. Neither breast shows developing density or interval mass or architectural abnormality. There are scattered bilateral vascular and benign round and coarse calcifications. The axilla are unremarkable. No significant changes. MM/MM tomosynthesis screening BI IMPRESSION: No significant changes from prior exams. ASSESSMENT: BI-RADS 2: Benign RECOMMENDATION: Routine annual mammography screening. This patient's information was entered into a reminder system with a target due date for their next mammogram.
== END 2021-02-08 11:43 | disposition home or self-care (01) ==
LOC: HO.MAMMO 11:42
PROVIDERS: PCP Internal Medicine; Visit Provider Internal Medicine
DX: Z12.31 Encounter for screening mammogram for malignant neoplasm of breast (principal)
CPT/HCPCS: 77063; 77067

== ENCOUNTER → 2021-02-09 09:47 | Outpatient (BNVA) | payer MEDICARE, SELFPAY | PROVIDERS: PCP Internal Medicine; Visit Provider Nurse Practitioner Gerontology | DX: E11.42 Type 2 diabetes mellitus with diabetic polyneuropathy (principal); E78.5 Hyperlipidemia, unspecified; I10 Essential (primary) hypertension; E66.9 Obesity, unspecified; Z79.4 Long term (current) use of insulin | CPT/HCPCS: 82947; 99212 ==

== ENCOUNTER → 2021-02-14 10:02 | Outpatient (BNVA) | payer MEDICARE, SELFPAY | PROVIDERS: PCP Internal Medicine; Visit Provider Internal Medicine | DX: D35.00 Benign neoplasm of unspecified adrenal gland (principal); E55.9 Vitamin D deficiency, unspecified; M81.0 Age-related osteoporosis without current pathological fracture | CPT/HCPCS: Q3014 ==

== ENCOUNTER → 2021-03-01 10:43 | Outpatient (BNVA) | payer MEDICARE, SELFPAY | PROVIDERS: PCP Internal Medicine; Visit Provider Nurse Practitioner | DX: Z13.89 Encounter for screening for other disorder (principal) | CPT/HCPCS: Q3014 ==

== ENCOUNTER → 2021-05-18 08:34 | Outpatient (BNVA) | payer MEDICARE, SELFPAY | PROVIDERS: PCP Internal Medicine; Visit Provider Nurse Practitioner Gerontology | CPT/HCPCS: Q3014 ==

== ENCOUNTER 2021-05-23 09:05 | Day surgery (SDC) | payer MEDICARE, SELFPAY ==
[2021-05-17 11:29] VITALS: BMI 31.1
--- NOTE | 2021-05-19 10:35 | ECG_ITS ---
Test Reason : PREOP Blood Pressure : / mmHG Vent. Rate : 070 BPM Atrial Rate : 070 BPM P-R Int : 124 ms QRS Dur : 080 ms QT Int : 412 ms P-R-T Axes : 060 018 023 degrees QTc Int : 444 ms Normal sinus rhythm Nonspecific ST abnormality Abnormal ECG When compared with ECG of 03-AUG-2020 10:12, No significant change was found Referred By: Junior Zayas Electronically Signed By:JESSICA ROY
[2021-05-19 11:36] LABS: MANUAL DIFF FLAG NO
[2021-05-19 11:43] LABS: Basophils Absolute Auto 0.1 X10*3/uL (0.0-0.2); Basophils Percent Auto 0.9 % (0-2); Eosinophils Absolute Auto 0.2 X10*3/uL (0.0-0.4); Eosinophils Percent Auto 2.3 % (0-4); Hemoglobin 12.5 g/dl (12.0-16.0); Imm Gran Abs Auto 0.06 X10*3/uL (0.00-0.03); Imm Gran Pct Auto 0.8 % (0.0-0.4); Lymphocytes Absolute Auto 2.6 X10*3/uL (1.2-4.9); Lymphocytes Percent Auto 32.7 % (20-40); Mean Corpuscular HGB Conc 32.9 g/dl (31.0-35.0); Mean Corpuscular Hemoglobin 30.5 pg (27.0-33.0); Mean Corpuscular Volume 92.7 fL (80-98); Mean Platelet Volume 10.3 fL (9.4-12.3); Monocytes Absolute Auto 0.7 X10*3/uL (0.1-1.2); Neutrophils Absolute Auto 4.2 X10*3/uL (2.0-8.3); Neutrophils Percent Auto 54.3 % (45-73); Platelet Count 318 X10*3/uL (160-400); Red Cell Distribution Width 14.2 % (11.0-16.0); White Blood Count 7.8 X10*3/uL (4.8-10.8)
[2021-05-19 12:09] LABS: Anion Gap 12 (12-20); Blood Urea Nitrogen 9 mg/dL (9-16); Calcium 9.4 mg/dL (8.4-10.2); Carbon Dioxide 28 mmol/L (22-29); Chloride 106 mmol/L (96-108); Creatinine Clr Calc Pharmacy 66.9; Estimated Glomerular Filt Rate > 60; Glucose Random 100 mg/dL (60-115); Potassium 3.6 mmol/L (3.3-5.1); Sodium 142 mmol/L (135-145)
--- NOTE | 2021-05-20 08:39 | HO.ANESPROP2 ---
Documented by User: Trudy Longo NP 05/31/21 11:13 HPI - Anesthesia Eval Consult details Narrative: 71yo F for Right Cataract Extraction IOL Insertion PCP cleared (Recent nuc stress negative) No previous cataract on record PMF Active Problems Active Problems: All Active Problems (Updated 05/19/21 @ 09:48 by Junior Zayas MD) Type 2 diabetes mellitus with hyperglycemia (Acute) Preop exam for internal medicine (Acute) Gastroparesis (Acute) Chest pain (Acute) Nasal congestion (Acute) Hip pain, left (Acute) Shoulder pain, right (Acute) Renal cyst (Acute) Abdominal bloating (Acute) Constipation (Acute) Hypertension (Acute) Vitamin D deficiency (Acute) Osteoporosis (Acute) Adrenal adenoma (Acute) Type 2 diabetes mellitus with diabetic polyneuropathy (Acute) Hypertension (Acute) Obesity (BMI 30-39.9) (Acute) Asthma (Acute) GERD (gastroesophageal reflux disease) (Acute) Coronary artery disease (Acute) Hypercholesterolemia (Acute) Past Medical History Medical History Adrenal adenoma Asthma Coronary artery disease Fracture of toe of left foot GERD (gastroesophageal reflux disease) Hypercholesterolemia Hypertension Obesity (BMI 30-39.9) On beta kamryn at home Osteoarthritis of both knees Osteopenia Osteoporosis Positive MAGGIE (antinuclear antibody) Pulmonary nodule Restless leg syndrome Tubal ligation evaluation 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 Vitamin D deficiency Family History Family History Mother HTN (hypertension) Diabetes Brother Lung cancer Sister Cancer, colon Daughter Uterine cancer Father Prostate cancer Surgical History Surgical History History of breast biopsy History of cholecystectomy History of esophagogastroduodenoscopy (EGD) History of laparoscopic cholecystectomy History of tubal ligation Hx of colonoscopy Social History Social History Household Members: Spouse Housing: Apartment Are you a primary foster care worker to a significant other at home: No Do you presently have visiting nurse or other home services: No Alcohol intake: never Patient Tobacco Use Status: Former Tobacco user Quit Date: Over 30 years ago e-Cigarette/Vaping Use: Never Used Second Hand Smoke Exposure: No Use of substances other than those prescribed or required for medical reasons: No Have you been hit, kicked, punched, or otherwise hurt by someone within the past year? If so, by whom?: No Are you DNR?: No Advance Directives: No Advance Directives Information Provided: No Advance Directives on File: No Recently lost weight without trying: No Eating poorly because of decreased appetite: No Nutrition Risks: No Nutritional Risk Patient : No service: No Current occupational status: retired and disabled Meds Allergies Allergy/AdvReac Type Severity Reaction Status Date / Time aspirin [Aspirin] Allergy Mild STOMACH Verified 05/19/21 09:20 PAIN, abdominal pain Penicillins Allergy Mild NAUSEA/STOMACH Verified 05/19/21 09:20 PAIN atorvastatin Allergy Unknown Unknown Verified 05/19/21 09:20 hydrochlorothiazide Allergy Unknown hypokalemia Verified 05/19/21 09:20 lisinopril Allergy Unknown ? swelling Verified 05/19/21 09:20 Motrin Allergy Unknown Unknown Verified 05/19/21 09:20 pravastatin Allergy Unknown Unknown Verified 05/19/21 09:20 rosuvastatin Allergy Unknown Unknown Verified 05/19/21 09:20 simvastatin Allergy Unknown Unknown Verified 05/19/21 09:20 ibuprofen [From MOTRIN] AdvReac Unknown ABD PAIN Verified 05/19/21 09:20 Home Medications Medication Instructions Recorded Confirmed Last Taken Type cyanocobalamin (vitamin B-12) 1,000 mcg PO DAILY 06/29/20 05/19/21 Unknown History 1,000 mcg capsule lancets 33 gauge #100 ea 09/20/20 05/19/21 Unknown History latanoprost 0.005 % eye drops 1 drp OPHTHALMIC (EYE) BEDTIME 09/20/20 05/19/21 Unknown History timolol maleate 0.5 % eye drops 1 drp OPHTHALMIC (EYE) QAM 09/20/20 05/19/21 Unknown History albuterol sulfate 90 mcg/actuation 2 puff PO Q6H PRN 05/17/21 05/19/21 Unknown History aerosol inhaler blood sugar diagnostic (FreeStyle 05/18/21 05/19/21 Unknown History Lite Strips) blood-glucose meter (FreeStyle 05/18/21 05/19/21 Unknown History Lite Meter) Exam Exam Date and Time: May 20, 2021 0839 Height,Weight and Vital Signs: Height 5 ft 2 in Weight 77.111 kg Pertinent Lab Results Pertinent Lab Results: Laboratory Tests 05/19/21 05/19/21 11:00 11:00 WBC 7.8 RBC 4.10 L Hgb 12.5 Hct 38.0 MCV 92.7 MCH 30.5 MCHC 32.9 RDW 14.2 Plt Count 318 MPV 10.3 Immature Gran % (Auto) 0.8 H Neut % (Auto) 54.3 Lymph % (Auto) 32.7 Esmeralda % (Auto) 9.0 Eos % (Auto) 2.3 Baso % (Auto) 0.9 Lymph # (Auto) 2.6 Esmeralda # (Auto) 0.7 Eos # (Auto) 0.2 Baso # (Auto) 0.1 Abs Immat Gran (auto) 0.06 H Absolute Neuts (auto) 4.2 Absolute Nucleated RBC 0.000 Nucleated RBC % (auto) 0.0 Sodium 142 Potassium 3.6 Chloride 106 Carbon Dioxide 28 Anion Gap 12 BUN 9 Creatinine 0.72 Estim Creat Clear Calc 66.9 Estimated GFR > 60 Random Glucose 100 Calcium 9.4 Assessment and Plan Assessment Anesthesia Assessment: Chart Reviewed Documented by User: Rosanne Giron MD 06/02/21 08:58 [facility] Past Medical History Medical History Adrenal adenoma Asthma Coronary artery disease Fracture of toe of left foot GERD (gastroesophageal reflux disease) Hypercholesterolemia Hypertension Obesity (BMI 30-39.9) On beta kamryn at home Osteoarthritis of both knees Osteopenia Osteoporosis Positive MAGGIE (antinuclear antibody) Pulmonary nodule Restless leg syndrome Tubal ligation evaluation 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 Vitamin D deficiency Family History Family History Mother HTN (hypertension) Diabetes Brother Lung cancer Sister Cancer, colon Daughter Uterine cancer Father Prostate cancer Family history of problems with anesthesia: No Surgical History Surgical History History of breast biopsy History of cholecystectomy History of esophagogastroduodenoscopy (EGD) History of laparoscopic cholecystectomy History of tubal ligation Hx of colonoscopy History of Problems with Anesthesia: No Social History Social History Household Members: Spouse Housing: Apartment Are you a primary foster care worker to a significant other at home: No Do you presently have visiting nurse or other home services: No Alcohol intake: never Patient Tobacco Use Status: Former Tobacco user Quit Date: Over 30 years ago e-Cigarette/Vaping Use: Never Used Second Hand Smoke Exposure: No Use of substances other than those prescribed or required for medical reasons: No Have you been hit, kicked, punched, or otherwise hurt by someone within the past year? If so, by whom?: No Are you DNR?: No Advance Directives: No Advance Directives Information Provided: No Advance Directives on File: No Recently lost weight without trying: No Eating poorly because of decreased appetite: No Nutrition Risks: No Nutritional Risk Patient : No service: No Current occupational status: retired and disabled Meds Allergies Allergy/AdvReac Type Severity Reaction Status Date / Time aspirin [Aspirin] Allergy Mild STOMACH Verified 05/19/21 09:20 PAIN, abdominal pain Penicillins Allergy Mild NAUSEA/STOMACH Verified 05/19/21 09:20 PAIN atorvastatin Allergy Unknown Unknown Verified 05/19/21 09:20 hydrochlorothiazide Allergy Unknown hypokalemia Verified 05/19/21 09:20 lisinopril Allergy Unknown ? swelling Verified 05/19/21 09:20 Motrin Allergy Unknown Unknown Verified 05/19/21 09:20 pravastatin Allergy Unknown Unknown Verified 05/19/21 09:20 rosuvastatin Allergy Unknown Unknown Verified 05/19/21 09:20 simvastatin Allergy Unknown Unknown Verified 05/19/21 09:20 ibuprofen [From MOTRIN] AdvReac Unknown ABD PAIN Verified 05/19/21 09:20 Home Medications Medication Instructions Recorded Confirmed Last Taken Type cyanocobalamin (vitamin B-12) 1,000 mcg PO DAILY 06/29/20 05/19/21 Unknown History 1,000 mcg capsule lancets 33 gauge #100 ea 09/20/20 05/19/21 Unknown History latanoprost 0.005 % eye drops 1 drp OPHTHALMIC (EYE) BEDTIME 09/20/20 05/19/21 Unknown History timolol maleate 0.5 % eye drops 1 drp OPHTHALMIC (EYE) QAM 09/20/20 05/19/21 Unknown History albuterol sulfate 90 mcg/actuation 2 puff PO Q6H PRN 05/17/21 05/19/21 Unknown History aerosol inhaler blood sugar diagnostic (FreeStyle 05/18/21 05/19/21 Unknown History Lite Strips) blood-glucose meter (FreeStyle 05/18/21 05/19/21 Unknown History Lite Meter) Exam Height,Weight and Vital Signs: Height 5 ft 2 in Weight 77.111 kg Vital Signs Temp Pulse Resp BP Pulse Ox 96.9 F 74 16 179/82 H 99 05/23/21 10:40 05/23/21 10:40 05/23/21 10:40 05/23/21 10:40 05/23/21 10:40 Airway Mallampati Class: II TM Dist: >3cm Neck ROM: Full Heart: RRR Lungs: CTAB Assessment and Plan Final Anesthetic Review Family History of Problems with Anesthesia: No History of Problems with Anesthesia: No NPO: Yes ASA Class: III Final Preanesthetic Review: No Changes in Pt Med Stat, Meds/Allgs Chart Reviewed, Consent Obtained/Reviewed and Anes Risks/Benef Reviewed Patient Risk: Intermediate Procedure Risk: Low Assessment/Block/Sedation in SS: Assess/Block/Sedation-SS Anesthetic Plan Anesthetic Plan: MAC: Disposition: Standard PACU
--- NOTE | 2021-05-20 12:39 | MHC.SHP ---
Pre-Procedural Eval Section A Date of Service: 05/20/21 The patient is an INPATIENT: No Changes since office visit: No Cold of Flu in the past 2 weeks, No New Medical Problems, No Changes in Medication and No Patient answered all questions The History & Physical has been completed within 30 days and I have reviewed it.: Yes Section B Chief Complaint: Right Eye Cataract, Bilateral Open angle glaucoma Allergies: Allergies Allergy/AdvReac Type Severity Reaction Status Date / Time aspirin [Aspirin] Allergy Mild STOMACH Verified 05/19/21 09:20 PAIN, abdominal pain Penicillins Allergy Mild NAUSEA/STOMACH Verified 05/19/21 09:20 PAIN atorvastatin Allergy Unknown Unknown Verified 05/19/21 09:20 hydrochlorothiazide Allergy Unknown hypokalemia Verified 05/19/21 09:20 lisinopril Allergy Unknown ? swelling Verified 05/19/21 09:20 Motrin Allergy Unknown Unknown Verified 05/19/21 09:20 pravastatin Allergy Unknown Unknown Verified 05/19/21 09:20 rosuvastatin Allergy Unknown Unknown Verified 05/19/21 09:20 simvastatin Allergy Unknown Unknown Verified 05/19/21 09:20 ibuprofen [From MOTRIN] AdvReac Unknown ABD PAIN Verified 05/19/21 09:20 Plan Diagnosis/Plan: Unchanged I have reviewed the history and physical and performed a pertinent physical examination on my patient. No changes have occurred unless specified.
[2021-05-23 10:36] LABS: Glucose, Whole Blood 93 mg/dL (60-115)
[2021-05-23] MEDS: Tetracaine HCl/PF 0.5% Oph Sol 4 ML DROPS 1 DROP EYE-RIGHT (10:39)
[2021-05-23 10:40] VITALS: BP 179/82; PULSE 74; RESP 16; TEMP 36.1; O2SAT 99
[2021-05-23] MEDS: Tropicamide 1 % Ophth Sol 3 ML BTL 1 DROP EYE-RIGHT ×3 (10:41→10:48)
[2021-05-23] MEDS: Phenylephrine HCL 2.5% Oph SoL 2 ML BOTTLE 1 DROP EYE-RIGHT ×3 (10:43→10:50)
[2021-05-23] MEDS: Lactated Ringers 500 ML 50 ML IV (10:51)
--- NOTE | 2021-05-23 12:05 | HO.PNOPHT ---
Ophthalmology Procedure Procedure Date of Service: 05/23/21 Ophthalmology Viscoelastic: Healleonela Duet Dual Pack Pro Ophthalmology Lenses: TECHUDSON [id number] (23) Procedure Notes: PREOPERATIVE DIAGNOSIS: Decreased visual acuity right eye secondary to cataract and glaucoma. POSTOPERATIVE DIAGNOSIS: Same PROCEDURE: Right cataract extraction with intraocular lens insertion and trabeculectomy, right eye SURGEON: Alexander Santamaria M.D. ANESTHESIA: Topical/MAC ESTIMATED BLOOD LOSS: None COMPLICATIONS: None After obtaining informed consent, the patient was brought to the operating room suite and placed in the supine position. After adequate sedation per anesthesia, topical drops of Tetracaine were given to the right eye. The eye was then prepped and draped in the usual sterile fashion. The operating room microscope was then positioned over the right eye and a lid speculum placed. 2% Lidocaine was instilled subconjunctivally. After awaiting 30 seconds, a paracentesis was created superiorly. Hemostasis was then achieved using wet field cautery. Mitomycin .4mg/ml was then placed in the conjunctival pocket and held in place for two minutes. The subconjunctival pocket was then irrigated copiously with 20 mls of BSS. Paracentesis was then created. Viscoelastic was then instilled into the anterior chamber. A crescent blade was then utilized to create a partial thickness sclera wound followed by advancement to clear cornea with the crescent blade. A keratome was then utilized to enter the anterior chamber. Capsulotomy forceps were then utilized to create a continuous circular tear capsulotomy. Hydrodissection and hydrodelineation were carried out until adequate mobilization of the nucleus occurred. Phacoemulsification was utilized to remove the dense central nucleus followed by removal of remnant cortical material utilizing the automated aspiration irrigation unit. Viscoelastic was then instilled into the posterior capsular bag followed by placement of a posterior chamber intraocular lens. Attention was then directed to create a trabeculectomy. A [place] punch was then utilized to create the trabeculectomy. The residual Viscoelastic was then removed utilizing the automated IA machine. The egress of aqueous was evaluated and found to be appropriate. The conjunctiva was then closed with a 9-0 vicryl suture. BSS was then instilled into the anterior chamber creating a superior bleb, without obvious leakage. Intracameral injection of Vigamox 0.3%, 0.1 ml and subtenon injection of Kenalog-40 0.2 ml was given followed by an atropine drop. The patient tolerated the procedure well and will be followed up in the a.m.
[2021-05-23 12:57] VITALS: BP 146/80; PULSE 74; RESP 16; TEMP 36.2; O2SAT 98
== END 2021-05-23 13:14 | disposition home or self-care (01) ==
PROVIDERS: Absent Provider Internal Medicine; PCP Internal Medicine; Visit Provider Ophthalmology
PROC: (CPT 66984; principal; 2021-05-23 12:10)
DX: H25.11 Age-related nuclear cataract, right eye (principal); H40.1132 Primary open-angle glaucoma, bilateral, moderate stage; I10 Essential (primary) hypertension; J44.9 Chronic obstructive pulmonary disease, unspecified; E11.3293 Type 2 diabetes mellitus with mild nonproliferative diabetic retinopathy without macular edema, bilateral; Z79.4 Long term (current) use of insulin; Z79.899 Other long term (current) drug therapy; Z87.891 Personal history of nicotine dependence
CPT/HCPCS: 66984; 66170; 36415; 80048; 82947; 85025; 93005; J2250; J3010; J3300; J7315; V2632

== ENCOUNTER 2021-06-06 11:34 | Outpatient (REF) | payer MEDICARE, SELFPAY | END 2021-06-06 11:35 | disposition home or self-care (01) | LOC: HO.LAB 11:34 | PROVIDERS: PCP Internal Medicine; Visit Provider Internal Medicine | DX: Z20.822 Contact with and (suspected) exposure to COVID-19 (principal) | CPT/HCPCS: C9803; U0003; U0005 ==

== ENCOUNTER 2021-11-04 06:57 | Outpatient (REF) | payer MEDICARE, SELFPAY ==
--- NOTE | ~2021-11-04 | XR_ITS ---
EXAMINATION: XR SHOULDER, RIGHT CLINICAL INFORMATION: Pain COMPARISON: None TECHNIQUE: 3 views of the right shoulder FINDINGS: Bone alignment is normal. No fracture or dislocation is seen. The glenohumeral joint is normal. There is arthritis at the acromioclavicular joint. Soft tissues are unremarkable. XR/XR shoulder RT min 2V IMPRESSION: Arthritis at the acromioclavicular joint.
== END 2021-11-04 06:58 | disposition home or self-care (01) ==
LOC: HO.HOSX 06:57
PROVIDERS: Visit Provider Physician Assistant
DX: M12.811 Other specific arthropathies, not elsewhere classified, right shoulder (principal)
CPT/HCPCS: 20610; 73030; 99202; J1020

== ENCOUNTER 2021-11-14 09:10 | Outpatient (REF) | payer OTHER, SELFPAY ==
[2021-11-14 09:25] LABS: MANUAL DIFF FLAG NO
[2021-11-14 09:34] LABS: Basophils Absolute Auto 0.1 X10*3/uL (0.0-0.2); Eosinophils Absolute Auto 0.2 X10*3/uL (0.0-0.4); Eosinophils Percent Auto 3.3 % (0-4); Hemoglobin 12.4 g/dl (12.0-16.0); Imm Gran Abs Auto 0.02 X10*3/uL (0.00-0.03); Imm Gran Pct Auto 0.3 % (0.0-0.4); Lymphocytes Percent Auto 29.3 % (20-40); Mean Corpuscular HGB Conc 32.6 g/dl (31.0-35.0); Mean Corpuscular Hemoglobin 31.6 pg (27.0-33.0); Mean Corpuscular Volume 96.7 fL (80.0-98.0); Mean Platelet Volume 10.2 fL (9.4-12.3); Monocytes Absolute Auto 0.7 X10*3/uL (0.1-1.2); Monocytes Percent Auto 9.7 % (2-11); Neutrophils Absolute Auto 3.8 x10*3/uL (2.0-8.3); Neutrophils Percent Auto 56.4 % (45-73); Platelet Count 296 X10*3/uL (160-400); Red Blood Count 3.93 X10*6/uL (4.20-5.50); Red Cell Distribution Width 13.3 % (11.0-16.0); White Blood Count 6.7 X10*3/uL (4.8-10.8)
[2021-11-14 09:45] LABS: Estimated Average Glucose 143 mg/dL; Hemoglobin A1c % 6.6 %
[2021-11-14 10:06] LABS: Alanine Aminotransferase 15 U/L (0-31); Albumin Level 3.8 g/dL (3.5-5.0); Alkaline Phosphatase 85 U/L (39-117); Anion Gap 11 (12-20); Aspartate Amino Transferase 14 U/L (5-31); Bilirubin Total 0.5 mg/dL (0.0-1.0); Blood Urea Nitrogen 9 mg/dL (9-16); Calcium 9.3 mg/dL (8.4-10.2); Carbon Dioxide 29 mmol/L (22-29); Chloride 106 mmol/L (96-108); Cholesterol 225 mg/dL; Estimated Glomerular Filt Rate > 60; Glucose Fasting 90 mg/dL (60-99); HDL Cholesterol 55 mg/dL; LDL Cholesterol Calculated 145 mg/dl; Potassium 4.2 mmol/L (3.3-5.1); Sodium 142 mmol/L (135-145); Total Protein 6.6 g/dL (6.5-8.0); Triglycerides 125 mg/dL
[2021-11-14 10:27] LABS: Free T4 (Free Thyroxine) 1.11 ng/dL (0.71-1.85); Thyroid Stimulating Hormone 2.97 uIU/mL (0.32-4.0)
[2021-11-14 10:35] LABS: Vitamin D 25-OH Total 40.2 ng/mL (>30)
[2021-11-14 10:39] LABS: Folate 19.3 ng/mL (> or = 4.0); Vitamin B12 1059 pg/mL (200-900)
[2021-11-14 11:08] LABS: Creatinine Urine 86.18 mg/dL; Microalbum/Creatinine Ratio Ur 13.9 ug/mg cr
== END 2021-11-14 09:11 | disposition home or self-care (01) ==
LOC: HO.LAB 09:10
PROVIDERS: PCP Internal Medicine; Visit Provider Nurse Practitioner Gerontology
DX: E11.65 Type 2 diabetes mellitus with hyperglycemia (principal); E11.42 Type 2 diabetes mellitus with diabetic polyneuropathy; Z79.4 Long term (current) use of insulin
CPT/HCPCS: 36415; 80053; 80061; 82043; 82306; 82607; 82746; 83036; 84439; 84443; 85025

== ENCOUNTER → 2021-11-17 11:28 | Outpatient (BNVA) | payer MEDICARE, SELFPAY | PROVIDERS: PCP Internal Medicine; Visit Provider Nurse Practitioner Gerontology | DX: E11.42 Type 2 diabetes mellitus with diabetic polyneuropathy (principal); E78.5 Hyperlipidemia, unspecified; E66.9 Obesity, unspecified; I10 Essential (primary) hypertension; Z79.4 Long term (current) use of insulin; Z68.30 Body mass index [BMI] 30.0-30.9, adult | CPT/HCPCS: 82947; 95250; 99212 ==

== ENCOUNTER → 2021-12-08 10:26 | Outpatient (BNVA) | payer OTHER, SELFPAY | PROVIDERS: PCP Internal Medicine; Visit Provider Nurse Practitioner Gerontology | DX: E11.42 Type 2 diabetes mellitus with diabetic polyneuropathy (principal); E78.5 Hyperlipidemia, unspecified; Z79.4 Long term (current) use of insulin; E66.9 Obesity, unspecified | CPT/HCPCS: 99212 ==

== ENCOUNTER → 2021-12-16 08:58 | Outpatient (BNVA) | payer OTHER, SELFPAY | PROVIDERS: PCP Internal Medicine; Visit Provider Physician Assistant | DX: Z13.89 Encounter for screening for other disorder (principal) ==

== ENCOUNTER 2022-01-30 14:07 | Outpatient (REF) | payer OTHER, SELFPAY ==
[2022-01-30 14:35] LABS: Blood Urea Nitrogen 12 mg/dL (9-16); Estimated Glomerular Filt Rate > 60
== END 2022-01-30 14:08 | disposition home or self-care (01) ==
LOC: HO.MRI 14:07
PROVIDERS: PCP Internal Medicine; Visit Provider Internal Medicine
DX: D35.00 Benign neoplasm of unspecified adrenal gland (principal)
CPT/HCPCS: 36415; 82565; 84520

== ENCOUNTER 2022-02-09 | Outpatient (REF) | payer OTHER, SELFPAY ==
[2022-02-09 07:57] LABS: Anion Gap 12 (12-20); Blood Urea Nitrogen 10 mg/dL (9-16); Calcium 9.3 mg/dL (8.4-10.2); Carbon Dioxide 26 mmol/L (22-29); Chloride 104 mmol/L (96-108); Estimated Glomerular Filt Rate > 60; Glucose Random 147 mg/dL (60-115); Potassium 3.9 mmol/L (3.3-5.1); Sodium 138 mmol/L (135-145)
[2022-02-10 08:57] LABS: DHEA Sulfate 15 mcg/dL (4-157)
[2022-02-10 20:17] LABS: Adrenocorticotropic Hormone 10 pg/mL (6-50)
[2022-02-15 16:26] LABS: Metanephrine, Free <25 pg/mL (<=57); Normetanephrines, Free 137 pg/mL (<=148); Total Metanephrine, Free 137 pg/mL (<=205)
[2022-02-16 16:47] LABS: Renin 0.09 ng/mL/h (0.25-5.82)
[2022-02-16 20:46] LABS: Catecholamine Frac, Total 881 pg/mL
== END 2022-02-09 00:01 | disposition home or self-care (01) ==
LOC: HO.LAB
PROVIDERS: PCP Internal Medicine; Visit Provider Internal Medicine
DX: D35.00 Benign neoplasm of unspecified adrenal gland (principal)
CPT/HCPCS: 36415; 80048; 82024; 82088; 82384; 82627; 83835; 84244

== ENCOUNTER 2022-02-11 09:45 | Outpatient (REF) | payer OTHER, SELFPAY ==
[2022-02-11 11:18] LABS: Creatinine, mg/dL 103.35
[2022-02-11 13:01] LABS: Creatinine, 24Hr Urine 0.8 G/Day (1.0-2.0); Total Volume 24 Hour Urine 800 mL
[2022-02-15 12:22] LABS: Metanephrine, Free 24U 81 mcg/24 h (90-315); Normetanephrine, Free 24U 514 mcg/24 h (122-676); Total Metanephrine, Free 24U 595 mcg/24 h (224-832); Total Volume 24U 800 mL
[2022-02-16 17:31] LABS: Cortisol Free, 24 Hr Urine 13.5 mcg/24 h (4.0-50.0); Creatinine, 24 Hr Urine 0.81 g/24 h (0.50-2.15); Total Volume, 24 Hr Urine 800 mL
[2022-02-17 00:42] LABS: CATF, 24 Ur Volume 800 mL; CATF-24Ur Creatinine 0.81 g/24 h (0.50-2.15); Catecholamines,Tot. (E+NE) 24U 70 mcg/24 h (26-121); Dopamine, 24 Ur 177 mcg/24 h (52-480); Norepinephrine, 24 Ur 70 mcg/24 h (15-100)
== END 2022-02-11 09:46 | disposition home or self-care (01) ==
LOC: HO.LNP 09:45
PROVIDERS: Visit Provider Internal Medicine
DX: D35.00 Benign neoplasm of unspecified adrenal gland (principal)
CPT/HCPCS: 82384; 82530; 82570; 83835

== ENCOUNTER → 2022-02-13 09:26 | Outpatient (BNVA) | payer OTHER, SELFPAY | PROVIDERS: PCP Internal Medicine; Visit Provider Internal Medicine | DX: D35.00 Benign neoplasm of unspecified adrenal gland (principal); E55.9 Vitamin D deficiency, unspecified | CPT/HCPCS: Q3014 ==

== ENCOUNTER 2022-03-09 13:04 | Outpatient (REF) | payer OTHER, SELFPAY ==
--- NOTE | ~2022-03-09 | US_ITS ---
EXAMINATION: US RETROPERITONEAL LIMITED (RENAL ONLY) CLINICAL INFORMATION: Calculus of kidney. COMPARISON: CT abdomen and pelvis with contrast 01/19/2021. TECHNIQUE: Ultrasound abdomen complete 04/21/2015. X-ray abdomen 02/29/2012. FINDINGS: RIGHT KIDNEY: 10.2 x 5.2 x 4.1 cm (SAG x AP x TRV). The kidney is normal in size, contour, and echogenicity. Renal cortical thickness is normal. No calculi or focal parenchymal lesions. No hydronephrosis. There are scattered echogenic calcifications. LEFT KIDNEY: 11.6 x 4.5 x 4.4 cm (SAG x AP x TRV). The kidney is normal in size, contour, and echogenicity. Renal cortical thickness is normal. No renal calculi or hydronephrosis. There is an anechoic cyst in the lower pole measuring 3.0 x 2.7 x 3.1 cm. There are several echogenic calcifications seen. US/US renal BI IMPRESSION: There is an anechoic cyst in the left kidney. There are several bilateral echogenic calcifications in both kidneys.
== END 2022-03-09 13:05 | disposition home or self-care (01) ==
LOC: HO.US 13:04
PROVIDERS: PCP Internal Medicine; Visit Provider Urology
DX: N20.0 Calculus of kidney (principal)
CPT/HCPCS: 76775

== ENCOUNTER → 2022-04-04 10:49 | Outpatient (BNVA) | payer OTHER, SELFPAY | PROVIDERS: PCP Internal Medicine; Visit Provider Physician Assistant | DX: M12.811 Other specific arthropathies, not elsewhere classified, right shoulder (principal) | CPT/HCPCS: 99212 ==

== ENCOUNTER → 2022-04-10 13:52 | Outpatient (BNVA) | payer OTHER, SELFPAY | PROVIDERS: PCP Internal Medicine | DX: N28.1 Cyst of kidney, acquired (principal) | CPT/HCPCS: 99212 ==

== ENCOUNTER 2022-04-11 15:42 | Outpatient (REF) | payer OTHER, SELFPAY | END 2022-04-11 15:43 | disposition home or self-care (01) | LOC: HO.MRI 15:42 | PROVIDERS: Visit Provider Physician Assistant | DX: Z13.89 Encounter for screening for other disorder (principal) ==

== ENCOUNTER 2022-04-13 12:38 | Outpatient (REF) | payer OTHER, SELFPAY ==
[2022-04-13 13:08] LABS: COVID-19 Test Positive (Negative)
== END 2022-04-13 12:39 | disposition home or self-care (01) ==
LOC: HO.LAB 12:38
PROVIDERS: Visit Provider Internal Medicine
DX: Z20.822 Contact with and (suspected) exposure to COVID-19 (principal)
CPT/HCPCS: 87635; C9803

== ENCOUNTER 2022-05-01 09:31 | Outpatient (REF) | payer OTHER, SELFPAY ==
[2022-05-01 10:24] LABS: Alanine Aminotransferase 16 U/L (0-31); Alkaline Phosphatase 85 U/L (39-117); Anion Gap 14 (12-20); Aspartate Amino Transferase 17 U/L (5-31); Bilirubin Total 0.5 mg/dL (0.0-1.0); Blood Urea Nitrogen 10 mg/dL (9-16); Calcium 9.5 mg/dL (8.4-10.2); Carbon Dioxide 29 mmol/L (22-29); Chloride 104 mmol/L (96-108); Cholesterol 248 mg/dL; Estimated Glomerular Filt Rate > 60; Glucose Random 91 mg/dL (60-115); HDL Cholesterol 60 mg/dL; LDL Cholesterol Calculated 158 mg/dl; Potassium 4.2 mmol/L (3.3-5.1); Sodium 143 mmol/L (135-145); Total Protein 6.9 g/dL (6.5-8.0); Triglycerides 151 mg/dL
[2022-05-01 12:30] LABS: Creatinine Urine 119.52 mg/dL; Microalbum/Creatinine Ratio Ur 8.3 ug/mg cr
== END 2022-05-01 09:32 | disposition home or self-care (01) ==
LOC: HO.LAB 09:31
PROVIDERS: PCP Internal Medicine; Visit Provider Internal Medicine
DX: E11.65 Type 2 diabetes mellitus with hyperglycemia (principal); E78.00 Pure hypercholesterolemia, unspecified
CPT/HCPCS: 36415; 80053; 80061; 82043; 82306

== ENCOUNTER → 2022-05-17 16:01 | Outpatient (BNVA) | payer OTHER, SELFPAY | PROVIDERS: PCP Internal Medicine; Visit Provider Physician Assistant | DX: M19.011 Primary osteoarthritis, right shoulder (principal) | CPT/HCPCS: Q3014 ==

== ENCOUNTER → 2022-05-29 11:25 | Outpatient (BNVA) | payer OTHER, SELFPAY | PROVIDERS: PCP Internal Medicine; Visit Provider Orthopaedic Surgery | DX: M19.011 Primary osteoarthritis, right shoulder (principal); M75.101 Unspecified rotator cuff tear or rupture of right shoulder, not specified as traumatic | CPT/HCPCS: 99212 ==

== ENCOUNTER 2022-06-14 08:50 | Outpatient (REF) | payer OTHER, SELFPAY ==
--- NOTE | ~2022-06-14 | MM_ITS ---
EXAMINATION: MM SCREENING DIGITAL BREAST TOMOSYNTHESIS, BILATERAL CLINICAL INFORMATION: Screening. Asymptomatic. The lifetime risk of breast cancer based on the Tyrer-Cuzick Model is 2%. COMPARISON: Mammography: 02/08/2021, 04/14/2019, 02/22/2018 TECHNIQUE: Digital breast tomosynthesis is performed in both the craniocaudal and mediolateral oblique views along with computer-aided detection (CAD). Synthesized 2D images are generated from the tomosynthesis. FINDINGS: The breasts are almost entirely fatty (ACR BI-RADS breast composition Category a). Parenchymal pattern is similar to prior studies. Background stromal markings appearing normal. There is chronic left nipple retraction similar to prior studies. No retroareolar abnormality. There is no developing density or architectural abnormality. No abnormal calcifications. The axilla are unremarkable. No significant changes. MM/MM tomosynthesis screening BI IMPRESSION: No significant changes from prior exams. ASSESSMENT: BI-RADS 2: Benign RECOMMENDATION: Routine annual mammography screening. This patient's information was entered into a reminder system with a target due date for their next mammogram.
== END 2022-06-14 08:51 | disposition home or self-care (01) ==
LOC: HO.MAMMO 08:50
PROVIDERS: Visit Provider Internal Medicine
DX: Z12.31 Encounter for screening mammogram for malignant neoplasm of breast (principal)
CPT/HCPCS: 77063; 77067

== ENCOUNTER 2022-06-26 08:47 | Day surgery (SDC) | payer OTHER, SELFPAY ==
[2022-06-21 11:49] VITALS: BMI 30.9
--- NOTE | 2022-06-22 15:31 | MHC.SHP ---
Pre-Procedural Eval Section A Date of Service: 06/22/22 The patient is an INPATIENT: No Changes since office visit: No Cold of Flu in the past 2 weeks, No New Medical Problems, No Changes in Medication and No Patient answered all questions The History & Physical has been completed within 30 days and I have reviewed it.: Yes Section B Chief Complaint: Primary open-angle glaucoma, bilateral,cataract Allergies: Allergies Allergy/AdvReac Type Severity Reaction Status Date / Time aspirin [Aspirin] Allergy Mild Abdominal Verified 06/21/22 11:46 Pain Penicillins Allergy Mild NAUSEA/STOMACH Verified 06/15/22 10:58 PAIN hydrochlorothiazide Allergy Unknown hypokalemia Verified 06/15/22 10:58 lisinopril Allergy Unknown ? swelling Verified 06/15/22 10:58 [id number] Reductase Allergy Unknown Muscle Verified 06/21/22 11:46 Inhibitor cramps ibuprofen [From MOTRIN] AdvReac Unknown ABD PAIN Verified 06/15/22 10:58 Plan Diagnosis/Plan: Unchanged I have reviewed the history and physical and performed a pertinent physical examination on my patient. No changes have occurred unless specified.
--- NOTE | 2022-06-23 08:52 | HO.ANESPROP2 ---
Documented by User: Trudy Longo NP 06/23/22 08:53 HPI - Anesthesia Eval Consult details Narrative: 72yo F for Left Left Cataract Extraction IOL Insertion, Trabeculectomy PCP cleared Right side 05/2021 with TIVA: Fent 50, Labetolol 5, Midaz 2 PMFSH Active Problems Active Problems: All Active Problems (Updated 06/21/22 @ 11:45 by Yumiko Dunlap, NICOLASA) Gastroparesis (Acute) Chest pain (Acute) Nasal congestion (Acute) Hip pain, left (Acute) Shoulder pain, right (Acute) Renal cyst (Acute) Abdominal bloating (Acute) Constipation (Acute) Hypertension (Acute) Preop exam for internal medicine (Acute) Type 2 diabetes mellitus with hyperglycemia (Acute) Rotator cuff arthropathy of right shoulder (Acute) Right shoulder pain (Acute) Age-related osteoporosis without current pathological fracture (Acute) Arthritis of glenohumeral joint (Acute) Arthropathy of right shoulder (Acute) Renal cyst (Acute) Vitamin D deficiency (Acute) Osteoporosis (Acute) Adrenal adenoma (Acute) Type 2 diabetes mellitus with diabetic polyneuropathy (Acute) Hypertension (Acute) Obesity (BMI 30-39.9) (Acute) Asthma (Acute) GERD (gastroesophageal reflux disease) (Acute) Coronary artery disease (Acute) Hypercholesterolemia (Acute) Past Medical History 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 Vitamin D deficiency Family History Family History Mother HTN (hypertension) Diabetes Brother Lung cancer Sister Cancer, colon Daughter Uterine cancer Father Prostate cancer Family history of problems with anesthesia: No Surgical History Surgical History History of breast biopsy History of esophagogastroduodenoscopy (EGD) History of laparoscopic cholecystectomy History of tubal ligation Hx of colonoscopy Hx of right cataract extraction History of Problems with Anesthesia: No Social History Social History Household Members: Spouse Housing: Apartment Are you a primary palliative care specialist to a significant other at home: No Do you presently have visiting nurse or other home services: Yes ([employer] 24/7 daughter) Alcohol intake: never Patient Tobacco Use Status: Former Tobacco user Quit Date: quit years ago Tobacco use type: Cigarette e-Cigarette/Vaping Use: Never Used Second Hand Smoke Exposure: No Use of substances other than those prescribed or required for medical reasons: No Have you been hit, kicked, punched, or otherwise hurt by someone within the past year? If so, by whom?: No Are you DNR?: No Advance Directives: No Advance Directives Information Provided: Yes Advance Directives on File: No service: No Current occupational status: retired and disabled Cognitive needs: No Hearing needs: No Vision needs: Yes (glasses) Meds Allergies Allergy/AdvReac Type Severity Reaction Status Date / Time aspirin [Aspirin] Allergy Mild Abdominal Verified 06/21/22 11:46 Pain Penicillins Allergy Mild NAUSEA/STOMACH Verified 06/15/22 10:58 PAIN hydrochlorothiazide Allergy Unknown hypokalemia Verified 06/15/22 10:58 lisinopril Allergy Unknown ? swelling Verified 06/15/22 10:58 Qabuhbn-ISA-QhC Reductase Allergy Unknown Muscle Verified 06/21/22 11:46 Inhibitor cramps ibuprofen [From MOTRIN] AdvReac Unknown ABD PAIN Verified 06/15/22 10:58 Home Medications Medication Instructions Recorded Confirmed Last Taken Type latanoprost 0.005 % eye drops 1 drp ophthalmic (eye) BEDTIME 09/20/20 06/21/22 Unknown History timolol maleate 0.5 % eye drops 1 drp ophthalmic (eye) QAM 09/20/20 06/21/22 Unknown History Exam Exam Date and Time: June 23, 2022 0852 Height,Weight and Vital Signs: Height 5 ft 2 in Weight 76.657 kg Assessment and Plan Assessment Anesthesia Assessment: Chart Reviewed Final Anesthetic Review Family History of Problems with Anesthesia: No History of Problems with Anesthesia: No Documented by User: Alexander Coleman MD 06/26/22 11:01 REPLACED BY [facility] Past Medical History 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 Vitamin D deficiency Family History Family History Mother HTN (hypertension) Diabetes Brother Lung cancer Sister Cancer, colon Daughter Uterine cancer Father Prostate cancer Surgical History Surgical History History of breast biopsy History of esophagogastroduodenoscopy (EGD) History of laparoscopic cholecystectomy History of tubal ligation Hx of colonoscopy Hx of right cataract extraction Social History Social History Household Members: Spouse Housing: Apartment Are you a primary palliative care specialist to a significant other at home: No Do you presently have visiting nurse or other home services: Yes ([employer] 24/7 daughter) Alcohol intake: never Patient Tobacco Use Status: Former Tobacco user Quit Date: quit years ago Tobacco use type: Cigarette e-Cigarette/Vaping Use: Never Used Second Hand Smoke Exposure: No Use of substances other than those prescribed or required for medical reasons: No Have you been hit, kicked, punched, or otherwise hurt by someone within the past year? If so, by whom?: No Are you DNR?: No Advance Directives: No Advance Directives Information Provided: Yes Advance Directives on File: No service: No Current occupational status: retired and disabled Cognitive needs: No Hearing needs: No Vision needs: Yes (glasses) Meds Allergies Allergy/AdvReac Type Severity Reaction Status Date / Time aspirin [Aspirin] Allergy Mild Abdominal Verified 06/21/22 11:46 Pain Penicillins Allergy Mild NAUSEA/STOMACH Verified 06/15/22 10:58 PAIN hydrochlorothiazide Allergy Unknown hypokalemia Verified 06/15/22 10:58 lisinopril Allergy Unknown ? swelling Verified 06/15/22 10:58 Sonawgj-HXA-TsT Reductase Allergy Unknown Muscle Verified 06/21/22 11:46 Inhibitor cramps ibuprofen [From MOTRIN] AdvReac Unknown ABD PAIN Verified 06/15/22 10:58 Home Medications Medication Instructions Recorded Confirmed Last Taken Type latanoprost 0.005 % eye drops 1 drp ophthalmic (eye) BEDTIME 09/20/20 06/21/22 Unknown History timolol maleate 0.5 % eye drops 1 drp ophthalmic (eye) QAM 09/20/20 06/21/22 Unknown History Exam Airway Mallampati Class: II TM Dist: >3cm Neck ROM: Full Loose/Missing/Broken Teeth: Yes (missing lower back teeth b/l) Heart: [id number] Lungs: cta b/l Assessment and Plan Assessment Anesthesia Assessment: Anesthesia Plan Discussed Final Anesthetic Review NPO: Yes ASA Class: III Final Preanesthetic Review: No Changes in Pt Med Stat, Meds/Allgs Chart Reviewed, Consent Obtained/Reviewed and Anes Risks/Benef Reviewed Patient Risk: Intermediate Procedure Risk: Low Assessment/Block/Sedation in SS: Assess/Block/Sedation-SS Anesthetic Plan Anesthetic Plan: MAC: and Agree w/ Assess. and Plan Disposition: Standard PACU
[2022-06-26 10:47] VITALS: BP 110/74; PULSE 77; RESP 18; TEMP 36.6; O2SAT 100
[2022-06-26 10:58] LABS: Glucose, Whole Blood 121 mg/dL (60-115)
[2022-06-26] MEDS: Phenylephrine HCL 2.5% Oph SoL 2 ML BOTTLE 1 DROP EYE-LEFT ×3 (11:03→11:24)
[2022-06-26] MEDS: Tetracaine HCl/PF 0.5% Oph Sol 4 ML DROPS 1 DROP EYE-LEFT (11:03)
[2022-06-26] MEDS: Cyclopentolate 1 % Ophth Sol 2 ML DRPBTL 1 DROP EYE-LEFT ×3 (11:03→11:23)
[2022-06-26] MEDS: Tropicamide 1 % Ophth Sol 3 ML BTL 1 DROP EYE-LEFT ×3 (11:03→11:23)
[2022-06-26] MEDS: Lactated Ringers 500 ML 50 ML IV (11:04)
[2022-06-26] MEDS: Ketorolac Tromethamine 0.5% Op 5 ML DROPS 1 DROP EYE-LEFT ×3 (11:04→11:24)
--- NOTE | 2022-06-26 12:49 | HO.PNOPHT ---
Ophthalmology Procedure Procedure Date of Service: 06/26/22 Ophthalmology Viscoelastic: Healleonela Duet Dual Pack Pro Ophthalmology Lenses: TECHUDSON [id number] (23) Procedure Notes: PREOPERATIVE DIAGNOSIS: Decreased visual acuity left eye secondary to cataract and glaucoma POSTOPERATIVE DIAGNOSIS: Same PROCEDURE: Left cataract extraction with intraocular lens insertion and trabeculectomy, left eye SURGEON: Alexander Santamaria M.D. ANESTHESIA: Topical/MAC ESTIMATED BLOOD LOSS: None COMPLICATIONS: None After obtaining informed consent, the patient was brought to the operating room suite and placed in the supine position. After adequate sedation per anesthesia, topical drops of Tetracaine were given to the left eye. The eye was then prepped and draped in the usual sterile fashion. The operating room microscope was then positioned over the left eye and a lid speculum placed. 2% Lidocaine was instilled subconjunctivally. After awaiting 30 seconds, a paracentesis was created superiorly. Hemostasis was then achieved using wet field cautery. Mitomycin .4mg/ml was then placed in the conjunctival pocket and held in place for two minutes. The subconjunctival pocket was then irrigated copiously with 20 mls of BSS. Paracentesis was then created. Viscoelastic was then instilled into the anterior chamber. A crescent blade was then utilized to create a partial thickness sclera wound followed by advancement to clear cornea with the crescent blade. A keratome was then utilized to enter the anterior chamber. Capsulotomy forceps were then utilized to create a continuous circular tear capsulotomy. Hydrodissection and hydrodelineation were carried out until adequate mobilization of the nucleus occurred. Phacoemulsification was utilized to remove the dense central nucleus followed by removal of remnant cortical material utilizing the automated aspiration irrigation unit. Viscoelastic was then instilled into the posterior capsular bag followed by placement of a posterior chamber intraocular lens. Attention was then directed to create a trabeculectomy. A [place] punch was then utilized to create the trabeculectomy. The residual Viscoelastic was then removed utilizing the automated IA machine. The egress of aqueous was evaluated and found to be appropriate. The conjunctiva was then closed with a 9-0 vicryl suture. BSS was then instilled into the anterior chamber creating a superior bleb, without obvious leakage. a Drop of Ciprofloxacin was given and subtenon injection of Kenalog-40 0.2 ml was given followed by an atropine drop. The patient tolerated the procedure well and will be followed up in the a.m.
[2022-06-26 13:36] VITALS: BP 165/89; PULSE 84; RESP 16; TEMP 36.6; O2SAT 99
== END 2022-06-26 14:02 | disposition home or self-care (01) ==
LOC: HO.SSS 08:48
PROVIDERS: PCP Internal Medicine; Visit Provider Ophthalmology
PROC: (CPT 66985; principal; 2022-06-26 11:40)
PROC: (CPT 66170; 2022-06-26 11:40)
DX: H25.12 Age-related nuclear cataract, left eye (principal); H40.1133 Primary open-angle glaucoma, bilateral, severe stage; E11.3291 Type 2 diabetes mellitus with mild nonproliferative diabetic retinopathy without macular edema, right eye; E78.00 Pure hypercholesterolemia, unspecified; I10 Essential (primary) hypertension; J44.9 Chronic obstructive pulmonary disease, unspecified; Z96.1 Presence of intraocular lens; Z79.4 Long term (current) use of insulin; Z79.899 Other long term (current) drug therapy; Z88.0 Allergy status to penicillin; Z88.8 Allergy status to other drugs, medicaments and biological substances; Z87.891 Personal history of nicotine dependence
CPT/HCPCS: 66984; 66170; 82947; J2250; J3300; J7315; V2632

== ENCOUNTER 2022-08-31 11:20 | Emergency (ER) | payer OTHER, SELFPAY ==
[2022-08-31 11:41] VITALS: BP 151/66; PULSE 81; RESP 16; TEMP 36.2; O2SAT 100; BMI 31.1
--- NOTE | 2022-08-31 12:07 | ED.SKABFB ---
HPI - Skin/Abscess/Foreign Bdy General Chief complaint: Ear Problems Stated complaint: cotton swab stuck in ear Time Seen by Provider: 08/31/22 11:35 Source: patient and family Mode of arrival: ambulatory Limitations: language barrier ( [place]itanian-speaking) History of Present Illness HPI narrative: 72-year-old female presenting to the ER with complaints a cotton swab tip stuck into her left ear canal since this morning. She denies any other symptoms complaints or concerns at this time. MD complaint: foreign body Onset (ago): minute(s) ( Prior to arrival) Location: head ( left ear) Pain Consistency: constant Relieving factors: none Exacerbating factors: none Context: none Associated symptoms: denies other symptoms Treatments prior to arrival: other ( cleaning ears) Related Data Home Medications Medication Instructions Recorded Confirmed latanoprost 0.005 % eye drops 1 drp ophthalmic (eye) BEDTIME 09/20/20 06/21/22 timolol maleate 0.5 % eye drops 1 drp ophthalmic (eye) QAM 09/20/20 06/21/22 Previous Rx's Medication Instructions Recorded albuterol sulfate 2.5 mg/3 mL 2.5 mg (3 mL) continuous 06/29/20 (0.083 %) solution for nebulization nebulization Q4-6H PRN bronchospasm #180 mL nebulizers (Altera Nebulizer #1 ea 06/29/20 System) acetaminophen 500 mg tablet 500 mg PO Q6H PRN pain or fever 01/19/21 (Tylenol Extra Strength) #20 tabs sennosides 8.6 mg tablet (senna) 8.6 mg PO BID #60 caps 03/01/21 fluticasone 250 mcg-salmeterol 50 1 ea PO BID #60 ea 07/04/21 mcg/dose blistr powdr for inhalation (Wixela Inhub) cholecalciferol (vitamin D3) 50 50 mcg PO DAILY #30 caps 09/19/21 mcg (2,000 unit) capsule metoclopramide HCl 5 mg tablet 5 mg PO TID #120 tabs 09/19/21 metformin 500 mg tablet 500 mg PO BID #180 caps 10/03/21 blood sugar diagnostic (Ikwa Orientação ProfissionalTouch #50 ea 11/17/21 Verio test strips) lancets 33 gauge (OneTouch Delica #100 ea 11/17/21 Lancets) insulin glargine 100 unit/mL (3 16 unit (0.16 mL) subcut BEDTIME 12/08/21 mL) subcutaneous pen (Lantus #15 mL Solostar U-100 Insulin) fluticasone propionate 50 2 spray intranasal DAILY #3 ea 12/26/21 mcg/actuation nasal spray,suspension cyclobenzaprine 5 mg tablet 5 mg PO BEDTIME #30 tabs 01/19/22 metoprolol tartrate 100 mg tablet 100 mg PO BID #180 tabs 02/24/22 pantoprazole 40 mg tablet,delayed 40 mg PO BID #60 tabs 03/20/22 release dulaglutide 1.5 mg/0.5 mL 1.5 mg (0.5 mL) subcut QWEEK #6 mL 05/29/22 subcutaneous pen [facility] ([facility]) diclofenac sodium 1 % topical gel 2 g topical QID #100 grams 06/15/22 (Voltaren Arthritis Pain) lidocaine 5 % topical patch 1 patch topical DAILY PRN pain #30 06/15/22 (Lidoderm) ea amlodipine 5 mg tablet 5 mg PO DAILY #90 tabs 06/19/22 ezetimibe 10 mg tablet (Zetia) 10 mg PO DAILY #90 tabs 07/19/22 gabapentin 300 mg capsule 300 mg PO BEDTIME #30 caps 07/19/22 albuterol sulfate 90 mcg/actuation 2 puff PO Q6H PRN Wheezing #8.5 08/30/22 aerosol inhaler grams Allergies Allergy/AdvReac Type Severity Reaction Status Date / Time aspirin [Aspirin] Allergy Mild Abdominal Verified 06/26/22 13:28 Pain Penicillins Allergy Mild NAUSEA/STOMACH Verified 06/26/22 13:28 PAIN hydrochlorothiazide Allergy Unknown hypokalemia Verified 06/26/22 13:28 lisinopril Allergy Unknown ? swelling Verified 06/26/22 13:28 Rfavjib-FPN-NjF Reductase Allergy Unknown Muscle Verified 06/26/22 13:28 Inhibitor cramps ibuprofen [From MOTRIN] AdvReac Unknown ABD PAIN Verified 06/26/22 13:28 Review of Systems Review of Systems: Constitutional : No Weight loss, No Fever, No Chills, No Night Sweats, No Fatigue, No Malaise ENT/Mouth : + foreign body to left ear, No Hearing loss, No Ear Pain, No Nasal Congestion, No Sinus Pain, No Hoarseness, No sore throat, No Rhinorrhea, No Swallowing Difficulty Eyes: No Eye Pain, No Swelling, No Redness, No Foreign Body, No Discharge, No Vision Changes Cardiovascular : No Chest Pain, No SOB, No Dyspnea on Exertion, No Orthopnea, No Edema, No Palpitations Respiratory : No Cough, No Sputum, No Wheezing, No Smoke Exposure, No Dyspnea Gastrointestinal : No Nausea, No Vomiting, No Diarrhea, No Constipation, No abdominal Pain, No Hematochezia, No Melena Genitourinary : no irregular bleeding, No Dysuria, No Urinary Frequency, No Hematuria, No Urinary Incontinence, No Urgency, No Flank Pain, No Urinary Flow Changes, No Hesitancy Musculoskeletal : No joint pain, No Myalgias, No Joint Swelling Skin : No Skin Lesions, No rash Neuro : No Weakness, No Numbness, No Paresthesias, No Loss of Consciousness, No Dizziness, No Headache Psych : No Anxiety/Panic, No Depression, No SI/HI/AH/VH, No Social Issues, Heme/Lymph: No Bruising, No Bleeding,No Lymphadenopathy Endocrine : No Polyuria, No Polydipsia, No Temperature Intolerance Yes all other systems are reviewed and are negative [facility] Past Medical History Attestation statement: The following information was validated with the patient. 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 Vitamin D deficiency Surgical History History of breast biopsy History of esophagogastroduodenoscopy (EGD) History of laparoscopic cholecystectomy History of tubal ligation Hx of colonoscopy Hx of right cataract extraction Family History Family History Mother HTN (hypertension) Diabetes Brother Lung cancer Sister Cancer, colon Daughter Uterine cancer Father Prostate cancer Social History Social History Household Members: Spouse Housing: Apartment Are you a primary care asst to a significant other at home: No Do you presently have visiting nurse or other home services: Yes (NURSING STAFFING COORDINATOR 24/7 daughter) Alcohol intake: never Patient Tobacco Use Status: Former Tobacco user Quit Date: quit years ago Tobacco use type: Cigarette e-Cigarette/Vaping Use: Never Used Second Hand Smoke Exposure: No Advance Directives: No service: No Current occupational status: retired and disabled Cognitive needs: No Hearing needs: No Vision needs: Yes (glasses) Physical Exam Vital Signs: Vital Signs: Last Vital Signs Temp 97.1 F 08/31/22 11:41 Pulse 81 08/31/22 11:41 Resp 16 08/31/22 11:41 BP 151/66 H 08/31/22 11:41 Pulse Ox 100 08/31/22 11:41 O2 Del Method 08/31/22 11:41 BMI result Body Mass Index 31.1 vital signs have been reviewed as normal and appeared to be correct. Blood pressure normal Heart rate normal. Respiration rate normal. Temperature normal. Oxygen saturation normal. Appearance: Alert. Oriented X3. No acute distress. Head: Normal external exam. Normocephalic. Atraumatic. Eyes: PERRLA. EOMI. Conjunctiva and sclera normal. Eyelids normal. ENT: patient with content swab tip to left ear canal now status post removal. Tympanic membrane intact not perforated no signs of otitis externa or otitis media. Pharynx normal. Uvula midline. Moist mucous membranes. Neck: Normal inspection. Neck supple. FROM. CVS: Normal heart rate and rhythm. Respiratory: No respiratory distress. Painless inspiration. Skin: Skin warm and dry. Normal skin color. Normal skin turgor. No rashes/lesions/lacerations noted. Extremities: Extremities exhibit normal range of motion. Extremities nontender. Neuro: Oriented X 3. No motor deficit. No sensory deficit. Reflexes normal. Normal steady gait. No focal neuro deficits noted. Vascular: + radial pulses/+ 2 distal pedal pulses/+2 dorsalis pedis b/l. Normal cap refill. No cyanosis noted to upper extremity nails and lower extremity toes nails. Course Course Course Narrative: Status post Content swab tip removal from left ear canal. Patient tolerated procedure well. No complications. tympanic membrane intact after procedure. No signs of infection. Will DC home with instructions return if any new or worsening symptoms follow up with primary care provider. Patient understands agrees with this plan. Procedures FB Removal Ear Location: ear canal (L) Foreign Body Suspected: other (cotton swab tip) TM intact pre-procedure: yes Foreign Body Removed: yes Foreign Body Removal Technique: instrumentation Tympanic Membrane Intact Post Procedure: Yes Patient Tolerated Procedure: well and no complications Complications: none Discharge Plan Discharge Clinical Impression: Acute foreign body of left ear Patient Disposition: Home, Self-Care Instructions: Ear Foreign Body (ED) Prescriptions: No Action cholecalciferol (vitamin D3) 50 mcg (2,000 unit) capsule 50 mcg PO DAILY Qty: 30 11RF metoclopramide HCl 5 mg tablet 5 mg PO TID Qty: 120 6RF metformin 500 mg tablet 500 mg PO BID Qty: 180 3RF fluticasone propionate 50 mcg/actuation spray,suspension 2 spray intranasal DAILY Qty: 3 3RF metoprolol tartrate 100 mg tablet 100 mg PO BID Qty: 180 3RF pantoprazole 40 mg tablet,delayed release (DR/EC) 40 mg PO BID Qty: 60 5RF Trulicity 1.5 mg/0.5 mL pen injector 1.5 mg subcut QWEEK Qty: 6 3RF amlodipine 5 mg tablet 5 mg PO DAILY Qty: 90 3RF ezetimibe [Zetia] 10 mg tablet 10 mg PO DAILY Qty: 90 0RF gabapentin 300 mg capsule 300 mg PO BEDTIME Qty: 30 6RF albuterol sulfate 90 mcg/actuation HFA aerosol inhaler 2 puff PO Q6H PRN (Reason: Wheezing) Qty: 8.5 0RF acetaminophen [Tylenol Extra Strength] 500 mg tablet 500 mg PO Q6H PRN (Reason: pain or fever) Qty: 20 0RF (DME) Altera Nebulizer System Misc See Rx Instructions .ROUTE .MEDSUPPLY Qty: 1 0RF Rx Instructions: As directed updraft Q 4 hours prn with albuterol albuterol sulfate 2.5 mg /3 mL (0.083 %) solution for nebulization 2.5 mg continuous nebulization Q4-6H PRN (Reason: bronchospasm) Qty: 180 3RF fluticasone propion-salmeterol [Wixela Inhub] 250-50 mcg/dose blister with device 1 ea PO BID Qty: 60 6RF cyclobenzaprine 5 mg tablet 5 mg PO BEDTIME Qty: 30 5RF lidocaine [Lidoderm] 5 % adhesive patch,medicated 1 patch topical DAILY MDD remove after 12 hours PRN (Reason: pain) Qty: 30 0RF Rx Instructions: leave on most painful area for up to 12 hrs diclofenac sodium [Voltaren Arthritis Pain] 1 % gel 2 g topical QID Qty: 100 11RF Rx Instructions: apply to single elbow, wrist or hand; for hand includes palm/fingers/back of hand latanoprost 0.005 % drops 1 drp ophthalmic (eye) BEDTIME timolol maleate 0.5 % drops 1 drp ophthalmic (eye) QAM sennosides [senna] 8.6 mg tablet 8.6 mg PO BID Qty: 60 11RF (DME) OneTouch Verio test strips Strip See Rx Instructions .ROUTE .MEDSUPPLY Qty: 50 11RF Rx Instructions: As directed twice a day, fasting am and at bedtime (DME) lancets [OneTouch Delica Lancets] 33 gauge misc See Rx Instructions .ROUTE .MEDSUPPLY Qty: 100 11RF Rx Instructions: As directed twice a day Lantus Solostar U-100 Insulin 100 unit/mL (3 mL) insulin pen 16 unit subcut BEDTIME Qty: 15 6RF Referrals: Po,Junior Galarza MD [Primary Care Provider] - 2 days Print Language: [place]itanian
== END 2022-08-31 12:38 | disposition home or self-care (01) ==
PROVIDERS: Emergency Provider Emergency Medicine Emergency Medical Services; PCP Internal Medicine
DX: T16.2XXA Foreign body in left ear, initial encounter (principal); X58.XXXA Exposure to other specified factors, initial encounter; Y93.E8 Activity, other personal hygiene; Y92.031 Bathroom in apartment as the place of occurrence of the external cause; Y99.9 Unspecified external cause status
CPT/HCPCS: 69200; 99283; 99284

== ENCOUNTER 2022-09-04 09:57 | Emergency (ER) | payer OTHER, SELFPAY ==
[2022-09-04 10:53] VITALS: BP 173/89; PULSE 90; RESP 18; TEMP 36.8; O2SAT 99; BMI 31.1
[2022-09-04 12:01] LABS: Influenza A PCR NEGATIVE (Negative); Influenza B PCR NEGATIVE (Negative); Resp Syncy Virus RNA Qual PCR POSITIVE (Negative); SARS COV2 PCR INHOUSE NEGATIVE (Negative)
--- NOTE | 2022-09-04 12:33 | ED.URI ---
HPI - URI/Sore Throat General Chief Complaint: Upper Respiratory Symptoms Stated Complaint: Cough Time Seen by Provider: 09/04/22 12:16 Source: patient Mode of arrival: ambulatory History of Present Illness HPI Narrative: 72-year-old female with a past medical history of asthma, GERD, glaucoma, HLD, HTN, osteoporosis, pulmonary nodule, diabetes, presenting to the ED complaining of productive cough x3 days with associated sore throat, headache, chills, & myalgias. Admits was sick with similar symptoms. Denies fever, pedal edema, recent travel, chest pain, shortness of breath. Patient admits she ran out of her inhaler at home MD elicited complaint: cough, sore throat, rhinorrhea and nasal congestion Pertinent past history: asthma Onset (ago): day(s) Related Data Home Medications Medication Instructions Recorded Confirmed latanoprost 0.005 % eye drops 1 drp ophthalmic (eye) BEDTIME 09/20/20 06/21/22 timolol maleate 0.5 % eye drops 1 drp ophthalmic (eye) QAM 09/20/20 06/21/22 Previous Rx's Medication Instructions Recorded albuterol sulfate 2.5 mg/3 mL 2.5 mg (3 mL) continuous 06/29/20 (0.083 %) solution for nebulization nebulization Q4-6H PRN bronchospasm #180 mL nebulizers (Altera Nebulizer #1 ea 06/29/20 System) acetaminophen 500 mg tablet 500 mg PO Q6H PRN pain or fever 01/19/21 (Tylenol Extra Strength) #20 tabs sennosides 8.6 mg tablet (senna) 8.6 mg PO BID #60 caps 03/01/21 fluticasone 250 mcg-salmeterol 50 1 ea PO BID #60 ea 07/04/21 mcg/dose blistr powdr for inhalation (Wixela Inhub) cholecalciferol (vitamin D3) 50 50 mcg PO DAILY #30 caps 09/19/21 mcg (2,000 unit) capsule metoclopramide HCl 5 mg tablet 5 mg PO TID #120 tabs 09/19/21 metformin 500 mg tablet 500 mg PO BID #180 caps 10/03/21 blood sugar diagnostic (CribFrogTouch #50 ea 11/17/21 Verio test strips) lancets 33 gauge (OneTouch Delica #100 ea 11/17/21 Lancets) insulin glargine 100 unit/mL (3 16 unit (0.16 mL) subcut BEDTIME 12/08/21 mL) subcutaneous pen (Lantus #15 mL Solostar U-100 Insulin) fluticasone propionate 50 2 spray intranasal DAILY #3 ea 12/26/21 mcg/actuation nasal spray,suspension cyclobenzaprine 5 mg tablet 5 mg PO BEDTIME #30 tabs 01/19/22 metoprolol tartrate 100 mg tablet 100 mg PO BID #180 tabs 02/24/22 pantoprazole 40 mg tablet,delayed 40 mg PO BID #60 tabs 03/20/22 release dulaglutide 1.5 mg/0.5 mL 1.5 mg (0.5 mL) subcut QWEEK #6 mL 05/29/22 subcutaneous pen injector (Trulicity) diclofenac sodium 1 % topical gel 2 g topical QID #100 grams 06/15/22 (Voltaren Arthritis Pain) lidocaine 5 % topical patch 1 patch topical DAILY PRN pain #30 06/15/22 (Lidoderm) ea amlodipine 5 mg tablet 5 mg PO DAILY #90 tabs 06/19/22 ezetimibe 10 mg tablet (Zetia) 10 mg PO DAILY #90 tabs 07/19/22 gabapentin 300 mg capsule 300 mg PO BEDTIME #30 caps 07/19/22 albuterol sulfate 90 mcg/actuation 2 puff PO Q6H PRN Wheezing #8.5 08/30/22 aerosol inhaler grams Allergies Allergy/AdvReac Type Severity Reaction Status Date / Time aspirin [Aspirin] Allergy Mild Abdominal Verified 09/04/22 10:53 Pain Penicillins Allergy Mild NAUSEA/STOMACH Verified 09/04/22 10:53 PAIN hydrochlorothiazide Allergy Unknown hypokalemia Verified 09/04/22 10:53 lisinopril Allergy Unknown ? swelling Verified 09/04/22 10:53 [id number] Reductase Allergy Unknown Muscle Verified 09/04/22 10:53 Inhibitor cramps ibuprofen [From MOTRIN] AdvReac Unknown ABD PAIN Verified 09/04/22 10:53 Review of Systems Review of Systems: Constitutional: No Fever, No Chills ENT/Mouth: No Ear Pain, + Nasal Congestion, No Sinus Pain, No Hoarseness, + sore throat, + Rhinorrhea, No Swallowing Difficulty Cardiovascular: No Chest Pain, No SOB Respiratory: + Cough, + Sputum, No Wheezing Gastrointestinal: No Nausea, No Vomiting, No Diarrhea, No Constipation, No Abdominal pain Genitourinary: No Dysuria, No Urinary Frequency, No Hematuria, No Urinary Incontinence/retention, No Urgency, No Flank Pain Musculoskeletal: No joint pain, + Myalgias, No Joint Swelling Skin: No Skin Lesions, No rash Neuro: No Weakness, No Numbness, No Paresthesias Yes all other systems are reviewed and are negative Constitutional: Constitutional: Reports as per [facility] [place] [facility] Past Medical History Attestation statement: The following information was validated with the patient. 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 Vitamin D deficiency Surgical History History of breast biopsy History of esophagogastroduodenoscopy (EGD) History of laparoscopic cholecystectomy History of tubal ligation Hx of colonoscopy Hx of right cataract extraction Family History Family History Mother HTN (hypertension) Diabetes Brother Lung cancer Sister Cancer, colon Daughter Uterine cancer Father Prostate cancer Social History Social History Household Members: Spouse Housing: Apartment Are you a primary hiv/aids care nurse to a significant other at home: No Do you presently have visiting nurse or other home services: Yes (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) Alcohol intake: never Patient Tobacco Use Status: Former Tobacco user Quit Date: quit years ago Tobacco use type: Cigarette e-Cigarette/Vaping Use: Never Used Second Hand Smoke Exposure: No Advance Directives: No Advance Directives Information Provided: No service: No Current occupational status: retired and disabled Cognitive needs: No Hearing needs: No Vision needs: Yes (glasses) Physical Exam Vital Signs: Vital Signs: Last Vital Signs Temp 98.3 F 09/04/22 10:53 Pulse 90 09/04/22 10:53 Resp 18 09/04/22 10:53 BP 173/89 H 09/04/22 10:53 Pulse Ox 99 09/04/22 10:53 O2 Del Method 09/04/22 10:53 BMI result Body Mass Index 31.1 Const: General: cooperative, healthy appearing and no acute distress Orientation/consciousness: patient oriented x3 Limitations: no limitations HEENT: Head: Yes normal to inspection and Yes atraumatic Ears: hearing grossly normal bilaterally, external ears normal, TM's normal bilaterally and mastoids normal General nose exam: Normal external nose present Face and sinus: Yes normal facial exam Mouth: Normal oral and palatal mucosa present Throat: Yes posterior oropharynx normal, Yes tonsils normal, Yes uvula midline, No abnormal tonsil, No peritonsillar mass, No uvula laterally displaced and No uvular edema Eyes: General: appearance normal, both eyes and all related structures EOM: EOMs intact bilaterally Neck: Neck: Yes normal visual inspection and Yes no meningeal signs Resp: Effort & Inspection: normal respiratory effort and no respiratory distress Auscultation: clear to auscultation bilaterally, no crackles, no rales and no rhonchi Cardio: Rate: regular rate Heart sounds: S1 normal heart sound present and S2 normal heart sound present Skin: Rashes: no rashes Wounds: no wounds Neuro: General: patient oriented x3, tone normal and no meningeal signs Gait exam (Neuro): Normal gait present Extrem: Other: 1+ bilateral LE pitting edema General: Yes no calf tenderness Course Course Course Narrative: XR chest 1V Impression: *? New trace right pleural effusion. -1235--RSV positive >> will obtain labs including BNP to rule out CHF -1400--labs unremarkable/reassuring. Results discussed with patient including worrisome signs and symptoms and strict return precautions, and when to return to the emergency department. They verbalized understanding and feel safe for discharge at this time. Medical Decision Making Medical Decision Making MDM Narrative: 72-year-old female with a past medical history of asthma, GERD, glaucoma, HLD, HTN, osteoporosis, pulmonary nodule, diabetes, presenting to the ED complaining of productive cough x3 days with associated sore throat, headache, chills, & myalgias. Exam vital signs stable, NAD, nontoxic appearing, lungs CTA, 1+ bilateral LE pitting edema, no calf tenderness. Concern for viral illness. Rule out pneumonia vs ?CHF. Low suspicion for ACS/PE or DVT Plan: COVID/flu/RSV, CXR, Labs Differential Diagnosis Differential Diagnoses: The differential diagnosis associated with the presentation includes as above Lab Data Result Diagrams: 09/04/22 13:03 09/04/22 13:03 Labs: Lab Results 09/04/22 09/04/22 09/04/22 Range/Units 11:18 13:03 13:03 WBC 5.8 (4.8-10.8) X10*3/uL RBC 4.07 L (4.20-5.50) X10*6/uL Hgb 12.9 (12.0-16.0) g/dl Hct 38.8 (37.0-47.0) % MCV 95.3 (80.0-98.0) fL MCH 31.7 (27.0-33.0) pg MCHC 33.2 (31.0-35.0) g/dl RDW 13.5 (11.0-16.0) % Plt Count 274 (160-400) X10*3/uL MPV 10.2 (9.4-12.3) fL Immature Gran % (Auto) 0.3 (0.0-0.4) % Neut % (Auto) 61.5 (45-73) % Lymph % (Auto) 20.1 (20-40) % [place] % (Auto) 11.7 H (2-11) % Eos % (Auto) 5.0 H (0-4) % Baso % (Auto) 1.4 (0-2) % Lymph # (Auto) 1.2 (1.2-4.9) X10*3/uL [place] # (Auto) 0.7 (0.1-1.2) X10*3/uL Eos # (Auto) 0.3 (0.0-0.4) X10*3/uL Baso # (Auto) 0.1 (0.0-0.2) X10*3/uL Abs Immat Gran (auto) 0.02 (0.00-0.03) X10*3/uL Absolute Neuts (auto) 3.6 (2.0-8.3) x10*3/uL Absolute Nucleated RBC 0.000 (0.0-0.012) X10*3/uL Nucleated RBC % (auto) 0.0 (0.0-0.2) /100WBC Sodium 140 (135-145) mmol/L Potassium 3.8 (3.3-5.1) mmol/L Chloride 104 (96-108) mmol/L Carbon Dioxide 28 (22-29) mmol/L Anion Gap 12 (12-20) BUN 8 L (9-16) mg/dL Creatinine 0.66 (0.5-1.4) mg/dL Estim Creat Clear Calc 71.8 Estimated GFR > 60 Random Glucose 85 (60-115) mg/dL Calcium 9.2 (8.4-10.2) mg/dL Total Bilirubin 0.5 (0.0-1.0) mg/dL Direct Bilirubin 0.2 (0.0-0.5) mg/dL AST 22 (5-31) U/L ALT 23 (0-31) U/L Alkaline Phosphatase 93 (39-117) U/L B-Natriuretic Peptide (<100) pg/mL Total Protein 7.0 (6.5-8.0) g/dL Albumin 4.1 (3.5-5.0) g/dL Influenza Type A (PCR) NEGATIVE (Negative) Influenza Type B (PCR) NEGATIVE (Negative) RSV RNA Qual (PCR) POSITIVE A (Negative) SARS-CoV-2 RNA (RT-PCR) NEGATIVE (Negative) 09/04/22 Range/Units 13:03 WBC (4.8-10.8) X10*3/uL RBC (4.20-5.50) X10*6/uL Hgb (12.0-16.0) g/dl Hct (37.0-47.0) % MCV (80.0-98.0) fL MCH (27.0-33.0) pg MCHC (31.0-35.0) g/dl RDW (11.0-16.0) % Plt Count (160-400) X10*3/uL MPV (9.4-12.3) fL Immature Gran % (Auto) (0.0-0.4) % Neut % (Auto) (45-73) % Lymph % (Auto) (20-40) % [place] % (Auto) (2-11) % Eos % (Auto) (0-4) % Baso % (Auto) (0-2) % Lymph # (Auto) (1.2-4.9) X10*3/uL [place] # (Auto) (0.1-1.2) X10*3/uL Eos # (Auto) (0.0-0.4) X10*3/uL Baso # (Auto) (0.0-0.2) X10*3/uL Abs Immat Gran (auto) (0.00-0.03) X10*3/uL Absolute Neuts (auto) (2.0-8.3) x10*3/uL Absolute Nucleated RBC (0.0-0.012) X10*3/uL Nucleated RBC % (auto) (0.0-0.2) /100WBC Sodium (135-145) mmol/L Potassium (3.3-5.1) mmol/L Chloride (96-108) mmol/L Carbon Dioxide (22-29) mmol/L Anion Gap (12-20) BUN (9-16) mg/dL Creatinine (0.5-1.4) mg/dL Estim Creat Clear Calc Estimated GFR Random Glucose (60-115) mg/dL Calcium (8.4-10.2) mg/dL Total Bilirubin (0.0-1.0) mg/dL Direct Bilirubin (0.0-0.5) mg/dL AST (5-31) U/L ALT (0-31) U/L Alkaline Phosphatase (39-117) U/L B-Natriuretic Peptide 54 (<100) pg/mL Total Protein (6.5-8.0) g/dL Albumin (3.5-5.0) g/dL Influenza Type A (PCR) (Negative) Influenza Type B (PCR) (Negative) RSV RNA Qual (PCR) (Negative) SARS-CoV-2 RNA (RT-PCR) (Negative) Discharge Plan Discharge Clinical Impression: Respiratory syncytial virus (RSV), Pleural effusion Patient Disposition: Home, Self-Care Instructions: Respiratory Syncytial Virus (ED), Pleural Effusion (ED) Additional Instructions: you have RSV Your x-ray shows a trace amount of fluid in her lungs. Please have close follow-up with her primary care doctor in regards to this, obtain repeat x-ray in 1-2 weeks. Rest. Stay hydrated. Wear a mask, cover her mouth. Take Tylenol and Motrin. Use your inhaler as needed. If symptoms persist or worsen return to the ED tienes vrs [place] radiograf?a muestra trazas de l?quido en tj pulmones. Tenga un seguimiento cercano con hardwick m?dico de atenci?n primaria con respecto a esto, obtenga doretha nueva radiograf?a en 1-2 semanas. Brandon. Mantente hidratado. Use doretha m?scara, cubra hardwick boca. Fanny Tylenol y Motrin. Use hardwick inhalador seg?n sea necesario. Si los s?ntomas persisten o empeoran, regrese al servicio de urgencias. Prescriptions: No Action cholecalciferol (vitamin D3) 50 mcg (2,000 unit) capsule 50 mcg PO DAILY Qty: 30 11RF metoclopramide HCl 5 mg tablet 5 mg PO TID Qty: 120 6RF metformin 500 mg tablet 500 mg PO BID Qty: 180 3RF fluticasone propionate 50 mcg/actuation spray,suspension 2 spray intranasal DAILY Qty: 3 3RF metoprolol tartrate 100 mg tablet 100 mg PO BID Qty: 180 3RF pantoprazole 40 mg tablet,delayed release (DR/EC) 40 mg PO BID Qty: 60 5RF Trulicity 1.5 mg/0.5 mL pen injector 1.5 mg subcut QWEEK Qty: 6 3RF amlodipine 5 mg tablet 5 mg PO DAILY Qty: 90 3RF ezetimibe [Zetia] 10 mg tablet 10 mg PO DAILY Qty: 90 0RF gabapentin 300 mg capsule 300 mg PO BEDTIME Qty: 30 6RF albuterol sulfate 90 mcg/actuation HFA aerosol inhaler 2 puff PO Q6H PRN (Reason: Wheezing) Qty: 8.5 0RF acetaminophen [Tylenol Extra Strength] 500 mg tablet 500 mg PO Q6H PRN (Reason: pain or fever) Qty: 20 0RF (DME) Altera Nebulizer System Misc See Rx Instructions .ROUTE .MEDSUPPLY Qty: 1 0RF Rx Instructions: As directed updraft Q 4 hours prn with albuterol albuterol sulfate 2.5 mg /3 mL (0.083 %) solution for nebulization 2.5 mg continuous nebulization Q4-6H PRN (Reason: bronchospasm) Qty: 180 3RF fluticasone propion-salmeterol [Wixela Inhub] 250-50 mcg/dose blister with device 1 ea PO BID Qty: 60 6RF cyclobenzaprine 5 mg tablet 5 mg PO BEDTIME Qty: 30 5RF lidocaine [Lidoderm] 5 % adhesive patch,medicated 1 patch topical DAILY MDD remove after 12 hours PRN (Reason: pain) Qty: 30 0RF Rx Instructions: leave on most painful area for up to 12 hrs diclofenac sodium [Voltaren Arthritis Pain] 1 % gel 2 g topical QID Qty: 100 11RF Rx Instructions: apply to single elbow, wrist or hand; for hand includes palm/fingers/back of hand latanoprost 0.005 % drops 1 drp ophthalmic (eye) BEDTIME timolol maleate 0.5 % drops 1 drp ophthalmic (eye) QAM sennosides [senna] 8.6 mg tablet 8.6 mg PO BID Qty: 60 11RF (DME) OneTouch Verio test strips Strip See Rx Instructions .ROUTE .MEDSUPPLY Qty: 50 11RF Rx Instructions: As directed twice a day, fasting am and at bedtime (DME) lancets [OneTouch Delica Lancets] 33 gauge [facility] [place] See Rx Instructions .ROUTE .MEDSUPPLY Qty: 100 11RF Rx Instructions: As directed twice a day Lantus Solostar U-100 Insulin 100 unit/mL (3 mL) insulin pen 16 unit subcut BEDTIME Qty: 15 6RF Referrals: Po,Junior Galarza MD [Primary Care Provider] - 3 days Print Language: Angolan
[2022-09-04 13:13] LABS: MANUAL DIFF FLAG NO
[2022-09-04 13:15] LABS: Basophils Absolute Auto 0.1 X10*3/uL (0.0-0.2); Basophils Percent Auto 1.4 % (0-2); Eosinophils Absolute Auto 0.3 X10*3/uL (0.0-0.4); Hematocrit 38.8 % (37.0-47.0); Hemoglobin 12.9 g/dl (12.0-16.0); Imm Gran Abs Auto 0.02 X10*3/uL (0.00-0.03); Imm Gran Pct Auto 0.3 % (0.0-0.4); Lymphocytes Absolute Auto 1.2 X10*3/uL (1.2-4.9); Lymphocytes Percent Auto 20.1 % (20-40); Mean Corpuscular HGB Conc 33.2 g/dl (31.0-35.0); Mean Corpuscular Hemoglobin 31.7 pg (27.0-33.0); Mean Corpuscular Volume 95.3 fL (80.0-98.0); Mean Platelet Volume 10.2 fL (9.4-12.3); Monocytes Absolute Auto 0.7 X10*3/uL (0.1-1.2); Monocytes Percent Auto 11.7 % (2-11); Neutrophils Absolute Auto 3.6 x10*3/uL (2.0-8.3); Neutrophils Percent Auto 61.5 % (45-73); Platelet Count 274 X10*3/uL (160-400); Red Blood Count 4.07 X10*6/uL (4.20-5.50); Red Cell Distribution Width 13.5 % (11.0-16.0); White Blood Count 5.8 X10*3/uL (4.8-10.8)
[2022-09-04 13:41] LABS: Alanine Aminotransferase 23 U/L (0-31); Albumin Level 4.1 g/dL (3.5-5.0); Alkaline Phosphatase 93 U/L (39-117); Anion Gap 12 (12-20); Aspartate Amino Transferase 22 U/L (5-31); Bilirubin Direct 0.2 mg/dL (0.0-0.5); Bilirubin Total 0.5 mg/dL (0.0-1.0); Blood Urea Nitrogen 8 mg/dL (9-16); Calcium 9.2 mg/dL (8.4-10.2); Carbon Dioxide 28 mmol/L (22-29); Chloride 104 mmol/L (96-108); Creatinine Clr Calc Pharmacy 71.8; Estimated Glomerular Filt Rate > 60; Glucose Random 85 mg/dL (60-115); Potassium 3.8 mmol/L (3.3-5.1); Sodium 140 mmol/L (135-145)
[2022-09-04 13:46] LABS: B Type Natriuretic Peptide 54 pg/mL (<100)
== END 2022-09-04 14:44 | disposition home or self-care (01) ==
PROVIDERS: Physician Assistant; Emergency Provider Emergency Medicine; PCP Internal Medicine
DX: J10.1 Influenza due to other identified influenza virus with other respiratory manifestations (principal); J91.8 Pleural effusion in other conditions classified elsewhere; R60.0 Localized edema; Z20.822 Contact with and (suspected) exposure to COVID-19; I10 Essential (primary) hypertension; E11.9 Type 2 diabetes mellitus without complications; E78.00 Pure hypercholesterolemia, unspecified; Z79.84 Long term (current) use of oral hypoglycemic drugs; Z79.85 Long-term (current) use of injectable non-insulin antidiabetic drugs; Z79.899 Other long term (current) drug therapy; Z79.02 Long term (current) use of antithrombotics/antiplatelets
CPT/HCPCS: 0241U; 36415; 71045; 80048; 80076; 83880; 85025; 99283

== ENCOUNTER 2022-09-21 10:50 | Outpatient (REF) | payer OTHER, SELFPAY ==
--- NOTE | ~2022-09-21 | XR_ITS ---
EXAMINATION: XR CHEST CLINICAL INFORMATION: Pleural effusion. COMPARISON: Prior chest radiographs dated 09/04/2022; CT chest dated 12/05/2016. TECHNIQUE: Frontal and lateral views of the chest were obtained. FINDINGS: The heart, great vessels, pulmonary vasculature and mediastinum are normal. The lungs show no focal infiltrate, effusion or pneumothorax. A small left upper lung field benign, calcified granuloma is redemonstrated. There is no acute osseous abnormality. XR/XR chest 2V IMPRESSION: No active cardiopulmonary disease.
[2022-09-21 11:56] LABS: Appearance Urine Clear; Color Urine Dark Yellow; Glucose Urine UA Negative (Negative); Leukocyte Esterase Urine Trace (Negative); Nitrite Urine Positive (Negative); PH 5.5 (5.0-9.0); Specific Gravity - Urine 1.025 (1.005-1.025); UMIC TRIGGER UACC YES; Urine Blood Negative (Negative); Urine Ketones Trace mg/dL (Negative); Urine Protein Negative (Neg-Trace)
[2022-09-21 13:59] LABS: Bacteria Urine 4+ (None Seen); Hyaline Casts Urine 0-2 /LPF (0-2); RBC Urine 0-2 /HPF (0-2); UACC Culture Trigger YES; WBC Urine 0-5 /HPF (0-5)
== END 2022-09-21 10:51 | disposition home or self-care (01) ==
LOC: HO.LAB 10:50
PROVIDERS: PCP Internal Medicine; Visit Provider Nurse Practitioner Family
DX: J90 Pleural effusion, not elsewhere classified (principal)
CPT/HCPCS: 71046; 81001; 81003; 87086; 87088; 87186

== ENCOUNTER 2022-09-25 08:46 | Outpatient (REF) | payer OTHER, SELFPAY ==
--- NOTE | ~2022-09-25 | US_ITS ---
EXAMINATION: US RETROPERITONEAL LIMITED (RENAL ONLY) CLINICAL INFORMATION: Cyst of kidney, acquired. COMPARISON: Ultrasound retroperitoneal limited (renal only) 03/09/2022. CT abdomen and pelvis with contrast 01/19/2021. Ultrasound abdomen complete 04/21/2015. TECHNIQUE: Real-time imaging of the kidneys. FINDINGS: RIGHT KIDNEY: 10.0 x 5.5 x 5.0 cm (SAG x AP x TRV). The kidney is normal in size, contour, and echogenicity. Renal cortical thickness is normal. No calculi or focal parenchymal lesions. No hydronephrosis. LEFT KIDNEY: 12.1 x 4.6 x 4.5 cm (SAG x AP x TRV). The kidney is normal in size, contour, and echogenicity. Renal cortical thickness is normal. No renal calculi or hydronephrosis. There is anechoic cyst lower pole measuring 3.4 x 3.1 x 3.4 cm. US/US renal BI IMPRESSION: Anechoic cyst lower pole left kidney measuring 3.4 cm. There are no echogenic stones or hydronephrosis.
== END 2022-09-25 08:47 | disposition home or self-care (01) ==
LOC: HO.US 08:46
DX: N28.1 Cyst of kidney, acquired (principal)
CPT/HCPCS: 76775

== ENCOUNTER → 2022-10-12 09:42 | Outpatient (BNVA) | payer OTHER, SELFPAY | PROVIDERS: PCP Internal Medicine; Visit Provider Nurse Practitioner Family | DX: R35.0 Frequency of micturition (principal); N28.1 Cyst of kidney, acquired | CPT/HCPCS: 99212 ==

== ENCOUNTER → 2022-12-01 09:52 | Outpatient (BNVA) | payer OTHER, SELFPAY | PROVIDERS: PCP Internal Medicine; Visit Provider Nurse Practitioner Family | DX: N32.81 Overactive bladder (principal); R35.0 Frequency of micturition; N28.1 Cyst of kidney, acquired; E11.42 Type 2 diabetes mellitus with diabetic polyneuropathy; Z79.4 Long term (current) use of insulin | CPT/HCPCS: 51798; 99212 ==

== ENCOUNTER → 2022-12-15 13:04 | Outpatient (BNVA) | payer OTHER, SELFPAY | PROVIDERS: PCP Internal Medicine; Visit Provider Nurse Practitioner Family | DX: Z12.11 Encounter for screening for malignant neoplasm of colon (principal); K21.9 Gastro-esophageal reflux disease without esophagitis; K31.84 Gastroparesis; K59.01 Slow transit constipation; R14.0 Abdominal distension (gaseous) | CPT/HCPCS: 99212 ==

== ENCOUNTER → 2023-01-01 10:35 | Outpatient (BNVA) | payer OTHER, SELFPAY | PROVIDERS: PCP Internal Medicine; Visit Provider Internal Medicine | DX: E11.65 Type 2 diabetes mellitus with hyperglycemia (principal); D35.00 Benign neoplasm of unspecified adrenal gland; E78.5 Hyperlipidemia, unspecified; I10 Essential (primary) hypertension; Z79.4 Long term (current) use of insulin | CPT/HCPCS: 82947; 99212 ==

== ENCOUNTER 2023-01-03 09:08 | Outpatient (REF) | payer OTHER, SELFPAY ==
[2023-01-03 11:56] LABS: Creatinine, mg/dL 66.98
[2023-01-03 12:57] LABS: Total Volume 24 Hour Urine 1475 mL
[2023-01-11 14:28] LABS: Metanephrine, Free 24U 65 mcg/24 h (90-315); Normetanephrine, Free 24U 439 mcg/24 h (122-676); Total Metanephrine, Free 24U 504 mcg/24 h (224-832); Total Volume 24U 1475 mL
[2023-01-12 08:34] LABS: Cortisol Free, 24 Hr Urine 18.7 mcg/24 h (4.0-50.0); Creatinine, 24 Hr Urine 0.98 g/24 h (0.50-2.15); Total Volume, 24 Hr Urine 1475 mL
[2023-01-12 20:53] LABS: CATF, 24 Ur Volume 1475 mL; CATF-24Ur Creatinine 0.99 g/24 h (0.50-2.15)
== END 2023-01-03 09:09 | disposition home or self-care (01) ==
LOC: HO.10HDLNP 09:08
PROVIDERS: Visit Provider Internal Medicine
DX: D35.00 Benign neoplasm of unspecified adrenal gland (principal)
CPT/HCPCS: 82384; 82530; 82570; 83835

== ENCOUNTER 2023-01-05 09:32 | Outpatient (REF) | payer OTHER, SELFPAY ==
[2023-01-05 11:24] LABS: Alanine Aminotransferase 22 U/L (0-31); Albumin Level 3.9 g/dL (3.5-5.0); Alkaline Phosphatase 93 U/L (39-117); Anion Gap 13 (12-20); Aspartate Amino Transferase 19 U/L (5-31); Bilirubin Total 0.6 mg/dL (0.0-1.0); Blood Urea Nitrogen 9 mg/dL (9-16); Calcium 8.9 mg/dL (8.4-10.2); Carbon Dioxide 26 mmol/L (22-29); Chloride 104 mmol/L (96-108); Cholesterol 176 mg/dL; Cortisol Random 17.5 ug/dL; Estimated Glomerular Filt Rate > 60; Glucose Random 206 mg/dL (60-115); HDL Cholesterol 60 mg/dL; LDL Cholesterol Calculated 100 mg/dl; Potassium 4.3 mmol/L (3.3-5.1); Sodium 139 mmol/L (135-145); Total Protein 6.6 g/dL (6.5-8.0); Triglycerides 80 mg/dL
[2023-01-05 11:30] LABS: Creatinine Urine 91.59 mg/dL; Microalbum/Creatinine Ratio Ur 9.8 ug/mg cr
[2023-01-05 11:31] LABS: Vitamin B12 829 pg/mL (200-900)
[2023-01-07 09:34] LABS: LDL Cholesterol Direct 96 mg/dL (<100)
[2023-01-07 13:39] LABS: DHEA Sulfate 14 mcg/dL (4-157)
[2023-01-10 21:09] LABS: Adrenocorticotropic Hormone 6 pg/mL (6-50)
[2023-01-12 05:43] LABS: Renin 0.07 ng/mL/h (0.25-5.82)
[2023-01-12 17:49] LABS: Metanephrine, Free <25 pg/mL (<=57); Normetanephrines, Free 113 pg/mL (<=148); Total Metanephrine, Free 113 pg/mL (<=205)
[2023-01-18 18:09] LABS: Catecholamine Frac, Total 547 pg/mL
== END 2023-01-05 09:33 | disposition home or self-care (01) ==
LOC: HO.10HDL 09:32
PROVIDERS: Visit Provider Internal Medicine
DX: E11.65 Type 2 diabetes mellitus with hyperglycemia (principal); D35.00 Benign neoplasm of unspecified adrenal gland
CPT/HCPCS: 36415; 80053; 80061; 82024; 82043; 82088; 82384; 82533; 82607; 82627; 83721; 83835; 84244

== ENCOUNTER → 2023-01-11 07:52 | Outpatient (REF) | payer OTHER, SELFPAY ==
--- NOTE | ~2023-01-11 | NM_ITS ---
EXAMINATION: RADIONUCLIDE SOLID FOOD GASTRIC EMPTYING 4-HOUR STUDY CLINICAL INFORMATION: Gastroesophageal reflux disease without esophagitis. COMPARISON: The previous study dated 11/10/2019 is available for comparison. TECHNIQUE: A standard meal consisting of 4 oz of Egg Beaters brand equivalent tagged with 1.0 mCi Tc-99m Sulfur Colloid, 8 oz water and 2 slices of toast with jelly was administered orally to the patient. Images were obtained using a dual head gamma camera in the anterior and posterior projections over of the stomach immediately post ingestion and at hourly intervals up to 4 hours post ingestion. The anterior and posterior counts at each time interval were averaged using the geometric mean and expressed as percentage of the immediate post ingestion counts. FINDINGS: There is good visualization of activity in the stomach immediately post ingestion. As the study progresses, there is good clearance of activity from the stomach and visualization of progressively increasing small bowel activity. However, at the end of the study there is mild abnormal retention of activity in the stomach at 4 hours. Retention in the stomach at each time interval was: 1 hour 42% (normal 37%-90%) 2 hours 21% (normal 30%-60%) 3 hours 23% 4 hours 12% (normal 0%-10%) NM/NM gastric emptying study IMPRESSION: Abnormal study. There is mild abnormal retention of solid food in the stomach at 4 hours. Gastric emptying study grading per JNMT Consensus Recommendations in 2008 (https://tech.snmjournals.org/content/36/44) Grade 1 (mild retention): 11-20% at 4h Grade 2 (moderate retention): 21-35% at 4h Grade 3 (severe retention): 36-50% at 4h Grade 4 (very severe retention): >50% retention at 4h
== END ==
LOC: HO.NUCMED 07:52
PROVIDERS: PCP Internal Medicine; Visit Provider Nurse Practitioner Family
DX: K21.9 Gastro-esophageal reflux disease without esophagitis (principal); K31.84 Gastroparesis
CPT/HCPCS: 78264; A9541

== ENCOUNTER → 2023-01-22 10:00 | Outpatient (BNVA) | payer OTHER, SELFPAY | PROVIDERS: PCP Internal Medicine; Visit Provider Nurse Practitioner Family | DX: K31.84 Gastroparesis (principal); K59.01 Slow transit constipation; K21.9 Gastro-esophageal reflux disease without esophagitis; R14.0 Abdominal distension (gaseous) | CPT/HCPCS: 99212 ==

== ENCOUNTER 2023-01-31 09:09 | Outpatient (REF) | payer OTHER, SELFPAY ==
--- NOTE | ~2023-01-31 | CT_ITS ---
EXAMINATION: CT ABDOMEN WITHOUT CONTRAST CLINICAL INFORMATION: Benign neoplasm of adrenal gland. COMPARISON: Renal ultrasound 09/25/2022. CT abdomen/pelvis with contrast 01/19/2021. TECHNIQUE: Contiguous axial thin section helical images of the abdomen were performed without contrast. The data set was reformatted in the coronal and sagittal planes and reviewed on an independent workstation. This CT examination was performed using dose optimization techniques as appropriate, variously including the following: *Automated exposure control *Adjustment of mA and/or kV according to patient size (this includes techniques or standardized protocols for targeted exams where dose is matched to indication/reason for exam; i.e. extremities or head) *Use of iterative reconstruction technique DLP: 433 mGy-cm FINDINGS: LUNG BASES: The heart size is normal. The lung bases are clear. There is a small hiatal hernia. LIVER, GALLBLADDER, BILIARY TREE: The liver is homogeneous in density, normal size and contour. No focal lesion or intrahepatic ductal dilatation seen. PANCREAS: The pancreas is normal size and density. SPLEEN: The spleen is normal and unremarkable. ADRENAL GLANDS AND KIDNEYS: There is a left adrenal lesion measuring 3.2 x 2.8 x 3.1 cm and -15 Hounsfield units suggestive of an adrenal myolipoma. The right adrenal gland is normal. Partially visualized kidneys are grossly unremarkable except for likely exophytic cyst midpole left kidney. BOWEL LOOPS: Scattered stool and gas is seen in colon without significant distention. The small bowel loops are normal caliber. The appendix is normal caliber. LYMPH NODES: Normal. VASCULAR: There is mild atherosclerotic calcification of the abdominal aorta without aneurysmal dilatation. BONES: No lytic or sclerotic process seen. There are degenerative disc changes with mild ventral and posterior spondylosis. No aggressive lytic or sclerotic process seen. CT/CT abdomen wo IV con IMPRESSION: 1. Left adrenal myolipoma. 2. Small hiatal hernia. 3. Mild constipation. Fleischner guidelines were followed.
== END 2023-01-31 09:10 | disposition home or self-care (01) ==
LOC: HO.CT 09:09
PROVIDERS: Visit Provider Internal Medicine
DX: D35.00 Benign neoplasm of unspecified adrenal gland (principal)
CPT/HCPCS: 74150

== ENCOUNTER 2023-02-21 09:22 | Outpatient (REF) | payer OTHER, SELFPAY ==
--- NOTE | ~2023-02-21 | MM_ITS ---
EXAMINATION: BONE DENSITOMETRY CLINICAL INDICATION: Age-related osteoporosis without current pathological fracture. COMPARISON: Previous BD dated 10/29/2020 and baseline BD dated 06/07/2007. TECHNIQUE: Using a PocketGuide DXA System (software version: 13.1) manufactured by [employer], dual-energy x-ray absorptiometry was performed of the lumbar spine and left hip. The images are of good technical quality. Summary results are attached. FINDINGS: AP SPINE L2-L4 (excluding L1): The data of L1-L4 has been changed to exclude the L1 vertebral body, because degenerative changes at this level may cause overestimation of lumbar spine density. Current: BMD 0.897 g/cm2, Z-score -1.2, T-score -2.5, osteoporosis, 8.9% decrease from previous, 7.9% increase from baseline (<5% change is not significant). Prior: BMD 0.985 g/cm2. Baseline: BMD 0.831 g/cm2. LEFT FEMUR, NECK: Current: BMD 0.815 g/cm2, Z-score 0.0, T-score -1.6, osteopenia. Prior: BMD 0.773 g/cm2. Baseline: BMD 0.982 g/cm2. LEFT FEMUR, TOTAL: Current: BMD 0.858 g/cm2, Z-score 0.2, T-score -1.2, osteopenia, 2.8% increase from previous, 17.4% decrease from baseline (<5% change is not significant). Prior: BMD 0.835 g/cm2. Baseline: BMD 1.039 g/cm2. IDENTIFIED RISK FACTORS: Osteoporosis, thiazide, menopause. HISTORY OF FRACTURE: None listed. MEDICATIONS: Calcium supplements or multivitamin, vitamin D. MM/XR DEXA axial skeleton IMPRESSION: 1. DIAGNOSIS: Osteoporosis based on the lowest T-score value of -2.5 in the lumbar spine applying World Health Organization criteria. 2. 10-YEAR FRACTURE RISK PREDICTION, FRAX: According to the guidelines, FRAX calculation should only be performed on patients in the osteopenia bone density category. Therefore, FRAX was not performed on this patient. 3. Treatment Recommendations: NOF guidelines recommend consideration for treatment in postmenopausal women and men age 50 and older presenting with the following: -A hip or vertebral (clinical or morphometric) fracture. -T-score less than or equal to -2.5 at the femoral neck or spine after appropriate evaluation to exclude secondary causes. -Low bone mass at the hip or spine and a 10-year fracture probability by FRAX of greater than or equal to 3% for hip fracture or greater than or equal to 20% for major osteoporotic fracture based on the [place] adapted WHO algorithm. 4. Other Recommendations: All treatment decisions require clinical judgment and consideration of individual patient factors, including patient preferences, comorbidities, previous drug use, risk factors not captured in the FRAX model (e.g. frailty, falls, vitamin D deficiency, increased bone turnover, interval significant decline in bone density) and possible under or overestimation of fracture risk by FRAX. Additional medical evaluation for secondary cause of low bone mineral density may be appropriate. FUTURE SCAN RECOMMENDATION: People with diagnosed cases of osteoporosis or at high risk for fracture should have regular bone mineral density tests. For patients eligible for Medicare, routine testing is allowed once every 2 years. The testing frequency can be increased to one year for patients who have rapidly progressing disease, those who are receiving or discontinuing medical therapy to restore bone mass, or have additional risk factors.
== END 2023-02-21 09:23 | disposition home or self-care (01) ==
LOC: HO.MAMMO 09:22
PROVIDERS: PCP Internal Medicine; Visit Provider Internal Medicine
DX: Z13.820 Encounter for screening for osteoporosis (principal); Z78.0 Asymptomatic menopausal state; M81.0 Age-related osteoporosis without current pathological fracture
CPT/HCPCS: 77080

== ENCOUNTER 2023-02-28 18:11 | Emergency (ER) | payer OTHER, SELFPAY ==
--- NOTE | ~2023-02-28 | XR_ITS ---
EXAMINATION: XR CHEST CLINICAL INFORMATION: Shortness of breath COMPARISON: 09/21/2022 TECHNIQUE: 2 views of the chest were obtained. FINDINGS: No significant abnormality is noted involving the heart, lungs, mediastinum or soft tissues. Degenerative changes are present in the spine. XR/XR chest 2V IMPRESSION: No acute intrathoracic disease.
[2023-02-28 18:18] VITALS: BP 143/69; PULSE 90; RESP 18; TEMP 37.1; O2SAT 98; BMI 31.1
--- NOTE | 2023-02-28 18:25 | ECG_ITS ---
Test Reason : SOB Blood Pressure : / mmHG Vent. Rate : 091 BPM Atrial Rate : 091 BPM P-R Int : 134 ms QRS Dur : 078 ms QT Int : 368 ms P-R-T Axes : 049 008 005 degrees QTc Int : 452 ms Normal sinus rhythm Nonspecific ST and T wave abnormality Abnormal ECG When compared with ECG of 19-MAY-2021 10:39, No significant change was found Referred By: Generic ED Physician Electronically Signed By:MARIBEL CHAMBERS
[2023-02-28 18:46] LABS: MANUAL DIFF FLAG NO
[2023-02-28 18:48] LABS: Basophils Absolute Auto 0.1 X10*3/uL (0.0-0.2); Basophils Percent Auto 0.8 % (0-2); Eosinophils Absolute Auto 0.4 X10*3/uL (0.0-0.4); Eosinophils Percent Auto 4.2 % (0-4); Hematocrit 33.8 % (37.0-47.0); Imm Gran Abs Auto 0.02 X10*3/uL (0.00-0.03); Imm Gran Pct Auto 0.2 % (0.0-0.4); Lymphocytes Absolute Auto 1.9 X10*3/uL (1.2-4.9); Lymphocytes Percent Auto 18.9 % (20-40); Mean Corpuscular HGB Conc 32.5 g/dl (31.0-35.0); Mean Corpuscular Hemoglobin 30.1 pg (27.0-33.0); Mean Corpuscular Volume 92.6 fL (80.0-98.0); Mean Platelet Volume 10.2 fL (9.4-12.3); Monocytes Absolute Auto 1.2 X10*3/uL (0.1-1.2); Monocytes Percent Auto 11.4 % (2-11); Neutrophils Absolute Auto 6.5 x10*3/uL (2.0-8.3); Neutrophils Percent Auto 64.5 % (45-73); Platelet Count 278 X10*3/uL (160-400); Red Blood Count 3.65 X10*6/uL (4.20-5.50); White Blood Count 10.1 X10*3/uL (4.8-10.8)
[2023-02-28 19:04] LABS: Anion Gap 16 (12-20); Blood Urea Nitrogen 9 mg/dL (9-16); Calcium 9.7 mg/dL (8.4-10.2); Carbon Dioxide 23 mmol/L (22-29); Chloride 106 mmol/L (96-108); Creatinine Clr Calc Pharmacy 66.8; Estimated Glomerular Filt Rate > 60; Glucose Random 167 mg/dL (60-115); Potassium 3.6 mmol/L (3.3-5.1); Sodium 141 mmol/L (135-145)
[2023-02-28 20:00] VITALS: BP 137/62; PULSE 89; RESP 18; O2SAT 97
--- NOTE | 2023-02-28 20:00 | ED.GENADULT ---
HPI - General Adult General Chief complaint: General Medical Stated complaint: cough, sore throat, headache Time Seen by Provider: 02/28/23 20:00 Source: patient and old records reviewed Mode of arrival: ambulatory Limitations: no limitations History of Present Illness HPI narrative: 72-year-old female with history of asthma, GERD, glaucoma, HTN, HLD, osteoporosis, pulmonary nodule, DM, constipation, gastroparesis, CAD who presents to the ER for evaluation of 1 week of sore throat, headaches, productive cough, wheezing in the setting of multiple family members at home with similar symptoms. She states she has been coughing up some white phlegm and the cough has been keeping her up at nighttime. She has been using her albuterol inhaler with good relief. She denies any fever or chills. She denies any chest pain or dyspnea on exertion. She has some soreness in her back when she coughs now. She denies any other myalgias or body aches MD complaint: URI symptoms with cough Onset (ago): week(s) (1) Location: head, mouth, chest and back Radiation: non-radiation Severity: moderate Quality: aching Pain Consistency: intermittent Relieving factors: rest Exacerbating factors: other (Coughing) Associated symptoms: cough, headaches, loss of appetite, malaise, shortness of breath and weakness Treatments prior to arrival: none Related Data Home Medications Medication Instructions Recorded Confirmed latanoprost 0.005 % eye drops 1 drp ophthalmic (eye) BEDTIME 09/20/20 01/01/23 timolol maleate 0.5 % eye drops 1 drp ophthalmic (eye) QAM 09/20/20 01/01/23 multivitamin 1 tab PO DAILY 12/01/22 01/01/23 insulin glargine 100 unit/mL (3 18 unit subcut BEDTIME 01/22/23 mL) subcutaneous pen (Lantus Solostar U-100 Insulin) Previous Rx's Medication Instructions Recorded albuterol sulfate 2.5 mg/3 mL 2.5 mg (3 mL) continuous 06/29/20 (0.083 %) solution for nebulization nebulization Q4-6H PRN bronchospasm #180 mL nebulizers (Altera Nebulizer #1 ea 06/29/20 System) blood sugar diagnostic (OneTouch #50 ea 11/17/21 Verio test strips) lancets 33 gauge (OneTouch Delica #100 ea 11/17/21 Lancets) metoprolol tartrate 100 mg tablet 100 mg PO BID #180 tabs 02/24/22 dulaglutide 1.5 mg/0.5 mL 1.5 mg (0.5 mL) subcut QWEEK #6 mL 05/29/22 subcutaneous pen injector (Trulicity) diclofenac sodium 1 % topical gel 2 g topical QID #100 grams 06/15/22 (Voltaren Arthritis Pain) amlodipine 5 mg tablet 5 mg PO DAILY #90 tabs 06/19/22 albuterol sulfate 90 mcg/actuation 2 puff inhalation Q4-6H PRN 09/04/22 aerosol inhaler shortness of breath or wheezing #6.7 grams benzonatate 100 mg capsule 100 mg PO TID PRN cough #14 caps 09/04/22 fluticasone 250 mcg-salmeterol 50 1 ea PO BID #60 ea 09/17/22 mcg/dose blistr powdr for inhalation (Wixela Inhub) cholecalciferol (vitamin D3) 50 50 mcg PO DAILY 90 days #90 caps 10/03/22 mcg (2,000 unit) capsule blood pressure monitor (Blood #1 ea 11/01/22 Pressure Kit) fexofenadine 180 mg tablet 180 mg PO DAILY #30 tabs 11/01/22 (Alison Allergy) tolterodine 2 mg capsule,extended 4 mg PO DAILY 90 days #180 caps 12/01/22 release 24 hr metformin 500 mg tablet 1,000 mg PO BID 30 days #120 caps 01/01/23 pantoprazole 40 mg tablet,delayed 40 mg PO BID #60 tabs 01/01/23 release ezetimibe 10 mg tablet (Zetia) 10 mg PO DAILY #90 tabs 01/15/23 docusate sodium 100 mg capsule 100 mg PO BEDTIME #90 caps 01/22/23 gabapentin 300 mg capsule 300 mg PO BEDTIME #30 caps 02/15/23 hydrocodone-homatropine 5 mg-1.5 5 ml PO Q4-6H PRN cough #60 mL 02/28/23 mg/5 mL (5 mL) oral syrup prednisone 20 mg tablet 40 mg PO DAILY #8 tabs 02/28/23 Allergies Allergy/AdvReac Type Severity Reaction Status Date / Time aspirin [Aspirin] Allergy Mild Abdominal Verified 02/06/23 11:17 Pain Penicillins Allergy Mild NAUSEA/STOMACH Verified 02/06/23 11:17 PAIN hydrochlorothiazide Allergy Unknown hypokalemia Verified 02/06/23 11:17 lisinopril Allergy Unknown ? swelling Verified 02/06/23 11:17 Oxaynft-XXM-[id number] Reductase Allergy Unknown Muscle Verified 02/06/23 11:17 Inhibitor cramps ibuprofen [From Motrin] AdvReac Unknown Abdominal Verified 02/06/23 11:17 Pain Review of Systems Review of Systems: Yes all other systems are reviewed and are negative [facility] Past Medical History Medical History (Updated 02/28/23 @ 20:25 by LEOBARDO Garcia) Adrenal adenoma Asthma Cataract of left eye Colon cancer screening Coronary artery disease Fracture of toe of left foot GERD (gastroesophageal reflux disease) Glaucoma HLD (hyperlipidemia) Hypercholesterolemia Hypertension Nocturia more than twice per night Obesity (BMI 30-39.9) On beta kamryn at home Osteoarthritis of both knees Osteopenia Osteoporosis Pleural effusion, right Positive YEIMY (antinuclear antibody) Pulmonary nodule Renal cyst Restless leg syndrome Tubal ligation evaluation 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 Vitamin D deficiency Surgical History History of breast biopsy History of esophagogastroduodenoscopy (EGD) History of laparoscopic cholecystectomy History of tubal ligation Hx of colonoscopy Hx of right cataract extraction Family History Family History Mother HTN (hypertension) Diabetes Brother Lung cancer Sister Cancer, colon Daughter Uterine cancer Father Prostate cancer Social History Social History Household Members: Spouse Housing: Apartment Are you a primary career specialist to a significant other at home: No Do you presently have visiting nurse or other home services: Yes ([employer] 02/04 daughter) Alcohol intake: former Patient Tobacco Use Status: Former Tobacco user Quit Date: quit years ago Tobacco use type: Cigarette Smoked in Last 30 Days: No e-Cigarette/Vaping Use: Never Used Second Hand Smoke Exposure: No Advance Directives: No Advance Directives Information Provided: Yes service: No Current occupational status: retired and disabled Cognitive needs: No Hearing needs: No Vision needs: Yes (glasses) Physical Exam ED Vital Signs: Vital Signs - 24 hr 02/28/23 18:18 02/28/23 20:00 Temperature 98.7 F Pulse Rate 90 89 Respiratory Rate 18 18 Blood Pressure 143/69 H 137/62 Pulse Oximetry 98 97 Oxygen Delivery Method Room Air Room Air BMI result Body Mass Index 31.1 Appearance: Alert. Oriented X3. No acute distress. Head: normocephalic, atraumatic. Eyes: Pupils equal, round and reactive to light. ENT: Pharynx normal. No tonsillar swelling or exudate. Neck: Normal inspection. Neck supple. CVS: Normal heart rate and rhythm. Pulses normal. Respiratory: No respiratory distress. Breath sounds normal, hip no wheeze or rhonchi Congested cough noted Abdomen: Soft and nontender. +BS x4 Skin: Skin warm and dry. Normal skin color. Normal skin turgor. No rashes. Extremities: No lower extremity edema. No joint swelling. Neuro/psych: Oriented X 3. No motor deficit. No sensory deficit. CN II-XII intact. Normal speech and cognition. Medications Administered Discontinued Medications Generic Name Dose Route Start Last Admin Trade Name Freq PRN Reason Stop Dose Admin Guaifenesin/Codeine Phosphate 10 ml 02/28/23 20:09 02/28/23 20:17 Guaifen/Codeine Sf 200/20/10ml 10 Ml Liquid PO 02/28/23 20:10 10 ml ONCE ONE Administration Prednisone 40 mg 02/28/23 20:09 02/28/23 20:17 Prednisone 20 Mg Tablet PO 02/28/23 20:10 40 mg ONCE ONE Administration Medical Decision Making Medical Decision Making MDM Narrative: 72-year-old female with history of asthma, GERD, glaucoma, HTN, HLD, osteoporosis, pulmonary nodule, DM, constipation, gastroparesis, CAD who presents to the ER for evaluation of 1 week of sore throat, headaches, productive cough, wheezing in the setting of multiple family members at home with similar symptoms. Vital signs stable on arrival, lungs are clear throughout, speaking in complete sentences. She is saturating well on room air. Lab work was done in showing acute on chronic anemia. No signs or symptoms of bleeding. She is negative for COVID, flu, RSV. EKG is unremarkable. Chest x-ray without pneumonia. Patient most likely suffering from viral syndrome with acute bronchitis. Will treat with steroids and antitussives. Differential Diagnosis Differential Diagnoses: The differential diagnosis associated with the presentation includes strep, covid, flu, rsv, other viral syndrome, bronchitis, pneumonia, acute asthma exacerbation, no evidence of peritonsillar abcsess or retropharyngeal abscess Lab Data MDM Lab Attestation statement: I reviewed the patient's lab results. Acute on chronic anemia, normal renal function. 02/28/23 18:41 02/28/23 18:41 Labs: Lab Results 02/28/23 02/28/23 02/28/23 Range/Units 18:41 18:41 18:41 WBC 10.1 (4.8-10.8) X10*3/uL RBC 3.65 L (4.20-5.50) X10*6/uL Hgb 11.0 L (12.0-16.0) g/dl Hct 33.8 L (37.0-47.0) % MCV 92.6 (80.0-98.0) fL MCH 30.1 (27.0-33.0) pg MCHC 32.5 (31.0-35.0) g/dl RDW 14.0 (11.0-16.0) % Plt Count 278 (160-400) X10*3/uL MPV 10.2 (9.4-12.3) fL Immature Gran % (Auto) 0.2 (0.0-0.4) % Neut % (Auto) 64.5 (45-73) % Lymph % (Auto) 18.9 L (20-40) % [place] % (Auto) 11.4 H (2-11) % Eos % (Auto) 4.2 H (0-4) % Baso % (Auto) 0.8 (0-2) % Lymph # (Auto) 1.9 (1.2-4.9) X10*3/uL [place] # (Auto) 1.2 (0.1-1.2) X10*3/uL Eos # (Auto) 0.4 (0.0-0.4) X10*3/uL Baso # (Auto) 0.1 (0.0-0.2) X10*3/uL Abs Immat Gran (auto) 0.02 (0.00-0.03) X10*3/uL Absolute Neuts (auto) 6.5 (2.0-8.3) x10*3/uL Absolute Nucleated RBC 0.000 (0.0-0.012) X10*3/uL Nucleated RBC % (auto) 0.0 (0.0-0.2) /100WBC Sodium 141 (135-145) mmol/L Potassium 3.6 (3.3-5.1) mmol/L Chloride 106 (96-108) mmol/L Carbon Dioxide 23 (22-29) mmol/L Anion Gap 16 (12-20) BUN 9 (9-16) mg/dL Creatinine 0.71 (0.5-1.4) mg/dL Estim Creat Clear Calc 66.8 Estimated GFR > 60 Random Glucose 167 H (60-115) mg/dL Calcium 9.7 D (8.4-10.2) mg/dL Influenza Type A (PCR) NEGATIVE (Negative) Influenza Type B (PCR) NEGATIVE (Negative) RSV RNA Qual (PCR) NEGATIVE (Negative) SARS-CoV-2 RNA (RT-PCR) NEGATIVE (Negative) Independent Interpretation I performed an independent interpretation of an: EKG and Plain X-Ray Interpretation: Normal sinus rhythm, ventricular rate 91 beats per minute, normal CO interval, no ST segment elevations or depressions. cxr with clear lungs Radiology Impression Discussion of test interpretation with radiology: I have reviewed the radiologist's reading. Radiologist Impression: ?XR/XR chest 2V IMPRESSION: No acute intrathoracic disease. ? Independent Historian Clinical information obtained from an independent historian. History obtained from or confirmed by: Other (Adult daughter at the bedside) External Record Review External record reviewed: Office record, Outpatient record, Prior outpatient labs and Prior outpatient radiology Prescription Management I considered prescription management with: Antibiotic and Other (Antitussive and steroid) Chronic Conditions Patient?s care impacted by: Hypertension and Other (Asthma) Critical Care Time Critical Care Time Critical Care Time: No Discharge Plan Discharge Clinical Impression: Viral URI with cough Patient Disposition: Home, Self-Care Instructions: Upper Respiratory Infection (DC) Additional Instructions: You tested negative for COVID, Flu, RSV. Your chest x-ray was normal. Your labs showed mild anemia. Follow up with your doctor for this. Take the prescribed steroids and cough syrup for your symptoms - start them tomorrow, you were given 1st doses today in the ER. Rest and drink plenty of fluids. Recommend over the counter Mucinex 1200 mg two times per day for the next 3-4 days or until your cough improves. If you develop new or worsening symptoms call 911 or come back to the ER for further evaluation. Jet negativo para COVID, gripe, RSV. [place] radiograf?a de t?rax fue normal. Marleny laboratorios mostraron anemia leve. Khoi un seguimiento con [place] m?dico para esto. [place] los esteroides recetados y el jarabe para la tos para marleny s?ntomas; comience ma?yeimy, le dieron la primera dosis hoy en la leroy de emergencias. Descanse y porfirio muchos l?quidos. Recomiende Mucinex 1200 mg de venta deisi dos veces al d?a clay los pr?ximos 3 a 4 d?as o hasta que mejore la tos. Si desarrolla s?ntomas nuevos o que empeoran, llame al 911 o regrese a la leroy de emergencias para doretha evaluaci?n adicional. Prescriptions: New prednisone 20 mg tablet 40 mg PO DAILY Qty: 8 0RF hydrocodone-homatropine 5-1.5 mg/5 mL (5 mL) syrup 5 ml PO Q4-6H PRN (Reason: cough) Qty: 60 0RF Rx Instructions: Partial Fill upon patient request. No Action metoprolol tartrate 100 mg tablet 100 mg PO BID Qty: 180 3RF Trulicity 1.5 mg/0.5 mL pen injector 1.5 mg subcut QWEEK Qty: 6 3RF amlodipine 5 mg tablet 5 mg PO DAILY Qty: 90 3RF fluticasone propion-salmeterol [Wixela Inhub] 250-50 mcg/dose blister with device 1 ea PO BID Qty: 60 6RF cholecalciferol (vitamin D3) 50 mcg (2,000 unit) capsule 50 mcg PO DAILY 90 Days Qty: 90 3RF pantoprazole 40 mg tablet,delayed release (DR/EC) 40 mg PO BID Qty: 60 5RF ezetimibe [Zetia] 10 mg tablet 10 mg PO DAILY Qty: 90 0RF gabapentin 300 mg capsule 300 mg PO BEDTIME Qty: 30 6RF benzonatate 100 mg capsule 100 mg PO TID PRN (Reason: cough) Qty: 14 0RF albuterol sulfate 90 mcg/actuation HFA aerosol inhaler 2 puff inhalation Q4-6H PRN (Reason: shortness of breath or wheezing) Qty: 6.7 0RF (DME) Altera Nebulizer System [facility] See Rx Instructions .ROUTE .MEDSUPPLY Qty: 1 0RF Rx Instructions: As directed updraft Q 4 hours prn with albuterol albuterol sulfate 2.5 mg /3 mL (0.083 %) solution for nebulization 2.5 mg continuous nebulization Q4-6H PRN (Reason: bronchospasm) Qty: 180 3RF diclofenac sodium [Voltaren Arthritis Pain] 1 % gel 2 g topical QID Qty: 100 11RF Rx Instructions: apply to single elbow, wrist or hand; for hand includes palm/fingers/back of hand fexofenadine [Alison Allergy] 180 mg tablet 180 mg PO DAILY Qty: 30 3RF (DME) blood pressure monitor [Blood Pressure Kit] Kit See Rx Instructions .ROUTE .MEDSUPPLY Qty: 1 0RF Rx Instructions: As directed latanoprost 0.005 % drops 1 drp ophthalmic (eye) BEDTIME timolol maleate 0.5 % drops 1 drp ophthalmic (eye) QAM (DME) OneTouch Verio test strips Strip See Rx Instructions .ROUTE .MEDSUPPLY Qty: 50 11RF Rx Instructions: As directed twice a day, fasting am and at bedtime (DME) lancets [OneTouch Delica Lancets] 33 gauge [facility] See Rx Instructions .ROUTE .MEDSUPPLY Qty: 100 11RF Rx Instructions: As directed twice a day metformin 500 mg tablet 1,000 mg PO BID 30 Days Qty: 120 11RF multivitamin Tablet 1 tab PO DAILY tolterodine 2 mg capsule,extended release 24hr 4 mg PO DAILY 90 Days Qty: 180 0RF insulin glargine [Lantus Solostar U-100 Insulin] 100 unit/mL (3 mL) insulin pen 18 unit subcut BEDTIME docusate sodium 100 mg capsule 100 mg PO BEDTIME Qty: 90 3RF Referrals: Po,Junior Galarza MD [Primary Care Provider] - (viral uri w/ cough) Print Language: Romanian
[2023-02-28 20:06] LABS: Influenza A PCR NEGATIVE (Negative); Influenza B PCR NEGATIVE (Negative); Resp Syncy Virus RNA Qual PCR NEGATIVE (Negative); SARS COV2 PCR INHOUSE NEGATIVE (Negative)
[2023-02-28] MEDS: guaiFEN/Codeine SF 200/20/10ML 10 ML LIQUID PO (20:17)
[2023-02-28] MEDS: predniSONE 20 MG TABLET 40 MG PO (20:17)
== END 2023-02-28 21:04 | disposition home or self-care (01) ==
PROVIDERS: Emergency Provider Emergency Medicine Emergency Medical Services; PCP Internal Medicine
DX: J06.9 Acute upper respiratory infection, unspecified (principal); R05.9 Cough, unspecified; J02.9 Acute pharyngitis, unspecified; Z20.822 Contact with and (suspected) exposure to COVID-19; Z20.828 Contact with and (suspected) exposure to other viral communicable diseases; E11.9 Type 2 diabetes mellitus without complications; I10 Essential (primary) hypertension; E78.5 Hyperlipidemia, unspecified; Z87.891 Personal history of nicotine dependence; Z79.02 Long term (current) use of antithrombotics/antiplatelets; Z79.899 Other long term (current) drug therapy; Z79.85 Long-term (current) use of injectable non-insulin antidiabetic drugs
CPT/HCPCS: 0241U; 71046; 80048; 85025; 93005; 99283; 99284

== ENCOUNTER 2023-03-05 11:38 | Outpatient (REF) | payer OTHER, SELFPAY ==
[2023-03-05 14:39] LABS: Lipase 10 U/L (8-78)
[2023-03-05 14:43] LABS: TSH reflex Free T4 1.09 uIU/mL (0.32-4.0)
[2023-03-05 14:57] LABS: Folate 16.7 ng/mL (> or = 4.0); Vitamin B12 610 pg/mL (200-900)
[2023-03-09 16:32] LABS: Vitamin D 25-OH, D2 <4 ng/mL; Vitamin D 25-OH, D3 33 ng/mL; Vitamin D 25-OH, Total 33 ng/mL (30-100)
[2023-03-14 19:38] LABS: Acetylcholine Receptor Binding <0.30 nmol/L
[2023-03-14 20:43] LABS: Acetylcholine Recept. Blocking <15 (<15)
[2023-03-18 17:59] LABS: Acetylcholine Recep Modulating 2
== END 2023-03-05 11:39 | disposition home or self-care (01) ==
LOC: HO.LAB 11:38
PROVIDERS: Nurse Practitioner Family; PCP Internal Medicine; Visit Provider Psychiatry & Neurology Neurology
DX: R10.9 Unspecified abdominal pain (principal); R19.7 Diarrhea, unspecified; E55.9 Vitamin D deficiency, unspecified; K59.00 Constipation, unspecified; H02.409 Unspecified ptosis of unspecified eyelid
CPT/HCPCS: 36415; 82306; 82607; 82746; 83519; 83690; 84443

== ENCOUNTER 2023-03-07 10:14 | Outpatient (AMB) | payer OTHER, SELFPAY ==
--- NOTE | 2023-03-07 10:31 | MHC.OFFVIS ---
Intake Vital Signs 03/07/23 10:32 Height 5 ft 2 in Weight 176 lb 5.917 oz BMI 32.3 BP 151/78 H Blood Pressure Location Lt brachial Position Sitting Pulse 91 Intake Visit Reasons: 6 week follow up Intake Note: Anahy presents in office as a est.patient for a 6week f/u for GERD, Constipation PT CC:pt reports having no concerns pt denies any other GI Issues [employer] Required: No Accompanied by: Daughter Allergies aspirin [Aspirin] Allergy (Mild, Verified 03/19/23 11:25) Abdominal Pain Penicillins Allergy (Mild, Verified 03/19/23 11:25) NAUSEA/STOMACH PAIN hydrochlorothiazide Allergy (Unknown, Verified 03/19/23 11:25) hypokalemia lisinopril Allergy (Unknown, Verified 03/19/23 11:25) ? swelling Vfttnxm-LUW-RcR Reductase Inhibitor Allergy (Unknown, Verified 03/19/23 11:25) Muscle cramps ibuprofen [From Motrin] Adverse Reaction (Unknown, Verified 03/19/23 11:25) Abdominal Pain HPI 6 week follow up HPI Details LAST VISIT: Gastroparesis 12% of food retention in the stomach after 4 hours. This is much improved from the study that was done 3 years ago. Patient is moving her bowels better. Change her diet. We will discuss diet for patients with gastroparesis. She is no longer taking Reglan Abdominal bloating Occasional postprandial abdominal bloating. Patient was encouraged to get stool sample to check for pancreatic insufficiency. Continue low FODMAP diet Constipation Will start patient on stool softener. Patient did not have good experience with senna and Citrucel was making her constipated. GERD (gastroesophageal reflux disease) Continue current dose of pantoprazole. Patient was encouraged to avoid dietary triggers and. late night snacking. Staying upright for minimum 3 hours after meals discussed with patient. I will see patient in 6 weeks, sooner on as needed basis. Patient is agreeable to this plan and verbalizes understanding of instructions. She was given the opportunity to ask questions and all questions answered. All of this was discussed with patient's daughter as well who was interpreting for us per patient's request. ? Thank you for allowing me to participate in her care Plan Medications New docusate sodium 100 mg PO BEDTIME 90 caps 3RF K59.00 Discontinued methylcellulose (laxative) (Citrucel) Discontinued Reason: Patient no longer taking 500 mg PO BID 60 tabs 2RF TODAY'S VISIT Patient is here today for follow-up. Patient reports that she has been feeling better. Patient says she is moving her bowels without issues. Takes Colace daily. Feels like she empties her bowels completely. Patient is taking pantoprazole twice a day and states that her symptoms of acid reflux and epigastric discomfort improved. Patient denies dyspepsia, dysphagia or odynophagia. Denies melena, hematochezia, unintentional weight loss or ribbon like stools. Patient states that she has been feeling well denies any GI concerning symptoms. 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 Vitamin D deficiency Surgical History History of breast biopsy History of esophagogastroduodenoscopy (EGD) History of laparoscopic cholecystectomy History of tubal ligation Hx of colonoscopy Hx of right cataract extraction Family History Mother HTN (hypertension) Diabetes Brother Lung cancer Sister Cancer, colon Daughter Uterine cancer Father Prostate cancer Social History Household Members: Spouse Housing: Apartment Are you a primary hearing healthcare practitioner to a significant other at home: No Do you presently have visiting nurse or other home services: Yes ([employer]AD 24 daughter) Alcohol intake: former Patient Tobacco Use Status: Former Tobacco user Quit Date: quit years ago Tobacco use type: Cigarette e-Cigarette/Vaping Use: Never Used Second Hand Smoke Exposure: No service: No Current occupational status: retired and disabled Cognitive needs: No Hearing needs: No Vision needs: Yes (glasses) Review of Systems Const Denies weight gain and Denies weight loss ENT Reports no additional complaints, Denies dysphagia and Denies odynophagia Card Reports no additional complaints Resp Reports no additional complaints GI Denies abdominal pain, Denies belching, Denies melena, Denies bloating, Denies change in bowel habits, Denies dysphagia, Denies excessive flatus, Denies dyspepsia, Denies heartburn, Denies diarrhea, Denies loose stools, Denies nausea, Denies odynophagia and Denies vomiting Musc Reports no additional complaints Neuro Reports no additional complaints Psych Reports no additional complaints Endo Reports no additional complaints Physical Exam Vital Signs: Last Vital Signs Pulse 91 03/07/23 10:32 BP 151/78 H 03/07/23 10:32 BMI result Body Mass Index 32.3 Const General: healthy appearing, no acute distress and well developed Nutritional Appearance: obese Orientation/consciousness: patient oriented x3 HEENT Head: Yes normal to inspection, Yes normocephalic and Yes atraumatic Face and sinus: Yes normal facial exam Mouth: Normal oral and palatal mucosa present Throat: Yes posterior oropharynx normal, Yes tonsils normal and Yes uvula midline Eyes General: appearance normal, both eyes and all related structures Neck Neck: Yes normal visual inspection, Yes full ROM and Yes trachea midline Thyroid: Thyroid normal Resp Effort & Inspection: normal respiratory effort, able to speak in complete sentences, no tracheal deviation and symmetric chest movement Auscultation: clear to auscultation bilaterally Cardio Rate: regular rate Heart sounds: S1 normal heart sound present and S2 normal heart sound present GI Inspection: Yes normal to inspection, No distended and Yes obesity Palpation (GI): Soft to palpation, not firm, nontender and No hepatosplenomegaly present Auscultation: normal bowel sounds General: Yes no CVA tenderness Back/Spine/Pelvis Back: no CVA tenderness Skin General skin exam: elasticity normal, turgor normal and dry skin Neuro General: patient oriented x3 Psych Appearance: grossly normal Mental Status: mental status grossly normal Speech and movement: Normal speech and movement present Affect: normal affect Assessment & Plan Assessment & Plan (1) Gastroparesis: Comment: November 2022 Code(s): K31.84 - Gastroparesis Plan: Continue small meals. Diet for gastroparesis discussed with patient. (2) Constipation: Code(s): K59.00 - Constipation, unspecified Qualifiers: Constipation type: slow transit constipation Qualified Code(s): K59.01 - Slow transit constipation Plan: Continue Colace. Patient was encouraged to increase activity to promote better bowel motility. (3) GERD (gastroesophageal reflux disease): Code(s): K21.9 - Gastro-esophageal reflux disease without esophagitis Qualifiers: Esophagitis presence: without esophagitis Qualified Code(s): K21.9 - Gastro-esophageal reflux disease without esophagitis Plan: Continue pantoprazole twice a day. Discussed with patient avoiding dietary triggers and late night snacking. Staying upright for minimal 3 hours after meals discussed with patient. I will see patient in 3 months, sooner on as needed basis. Will discuss and review last upper endoscopy and colonoscopy and send patient for both. Patient is agreeable to this plan and verbalizes understanding of instructions. She was given the opportunity to ask questions and all questions answered. Thank you for allowing me to participate in her care Medications: Refilled pantoprazole 40 mg PO BID 180 tabs 2RF Discontinued prednisone Discontinued Reason: Patient Completed Course 40 mg (2 x 20 mg) PO DAILY 8 tabs 0RF Coding Level of Care Code Est Pt Level 3 (38819) Diagnoses Gastroparesis K31.84 Constipation K59.01 Constipation type: slow transit constipation GERD (gastroesophageal reflux disease) K21.9 Esophagitis presence: without esophagitis Time Spent (min) 30 Comment 20 minutes spent with patient and additional 10 minutes spent reviewing her records
[2023-03-07 10:32] VITALS: BP 151/78; PULSE 91; BMI 32.3
== END 2023-03-07 11:02 | disposition home or self-care (01) ==
PROVIDERS: Visit Provider Nurse Practitioner Family
DX: K31.84 Gastroparesis (principal); K59.01 Slow transit constipation; K21.9 Gastro-esophageal reflux disease without esophagitis
CPT/HCPCS: 99213

== ENCOUNTER → 2023-03-07 10:14 | Outpatient (BNVA) | payer OTHER, SELFPAY | PROVIDERS: Visit Provider Nurse Practitioner Family | DX: K31.84 Gastroparesis (principal); K21.9 Gastro-esophageal reflux disease without esophagitis; K59.01 Slow transit constipation | CPT/HCPCS: 99212 ==

== ENCOUNTER 2023-03-19 11:21 | Outpatient (AMB) | payer OTHER, SELFPAY ==
[2023-03-19 11:24] VITALS: BP 140/82; PULSE 72; O2SAT 98; BMI 32.4
--- NOTE | 2023-03-19 11:24 | MHC.PC.OV ---
Vital Signs 03/19/23 11:24 Height 5 ft 2 in Weight 177 lb BMI 32.4 BP 140/82 H Blood Pressure Location Lt brachial Position Sitting Pulse 72 Pulse Source Pulse Oximeter Temp Source Skin Pulse Oximetry (%) 98 Oxygen Delivery Method Room Air Intake [place] [facility]cough, sore throat, headache Intake Note: Patient is here to follow-up after a visit the emergency [place] [facility] [place] for cough sore throat, headache Disaster Recovery Manager Required: No Allergies aspirin [Aspirin] Allergy (Mild, Verified 03/19/23 11:25) Abdominal Pain Penicillins Allergy (Mild, Verified 03/19/23 11:25) NAUSEA/STOMACH PAIN hydrochlorothiazide Allergy (Unknown, Verified 03/19/23 11:25) hypokalemia lisinopril Allergy (Unknown, Verified 03/19/23 11:25) ? swelling Lewihjp-NFH-KqJ Reductase Inhibitor Allergy (Unknown, Verified 03/19/23 11:25) Muscle cramps ibuprofen [From Motrin] Adverse Reaction (Unknown, Verified 03/19/23 11:25) Abdominal Pain Tobacco use date assessed: 03/19/23 Fall risk assessment: No Falls in past year Last assessed Fall Risk: 03/19/23 HPI HPI Comments History of Present Illness Details 72-year-old female history of hypercholesteremia, CAD, GERD, asthma, hypertension anddiabetes mellitus type 2.? Patient of Dr. Zayas last seen in January. Patient presents today for ER follow-up from 02/28/2023 patient was seen for cough and 1 week sore throat. Patient was negative for COVID/flu and RSV. EKG unremarkable chest x-ray negative for pneumonia patient was treated with antitussive and steroids for viral bronchitis. Patient's blood work also showed acute on chronic anemia, will order follow-up CBC. Patient states feeling much better denies fever, chills, cough and shortness of breath. Patient does report having trace ankle and pedal edema x1 month. Denies any chest pain, palpitations, shortness of breath and syncope. 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 Vitamin D deficiency Surgical History History of breast biopsy History of esophagogastroduodenoscopy (EGD) History of laparoscopic cholecystectomy History of tubal ligation Hx of colonoscopy Hx of right cataract extraction Family History Mother HTN (hypertension) Diabetes Brother Lung cancer Sister Cancer, colon Daughter Uterine cancer Father Prostate cancer Social History Household Members: Spouse Housing: Apartment Are you a primary patient care associate to a significant other at home: No Do you presently have visiting nurse or other home services: Yes (AGRICULTURAL PRODUCTION ENGINEER 02/04 daughter) Alcohol intake: former Patient Tobacco Use Status: Former Tobacco user Quit Date: quit years ago Tobacco use type: Cigarette e-Cigarette/Vaping Use: Never Used Second Hand Smoke Exposure: No service: No Current occupational status: retired and disabled Cognitive needs: No Hearing needs: No Vision needs: Yes (glasses) Questionnaire Thrive Questionnaire Date Thrive assessed: 09/19/22 AUDIT C Alcohol Use Questionnaire (AUDIT-C) 1. How often do you have a drink containing alcohol?: Never 3. How often do you have six or more drinks on one occasion?: Never Total Score: 0 QUYNH-7 AMB Questionnaire QUYNH-7 Date QUYNH - 7 assessed: 09/19/22 Source: Developed by Drs. Jhon Cedeño, Cara Park, Isaias Michael and colleagues, with an educational joey from [employer]. Review of Systems Const Denies chills, Denies fatigue, Denies fever(s) and Denies poor appetite Eyes Denies no additional complaints ENT Reports Normal hearing present Card Denies chest pain, Denies syncope, Denies rapid heart rate and Denies dyspnea Resp Denies cough and Denies dyspnea GI Denies change in stool character, Denies constipation, Denies diarrhea, Denies nausea and Denies vomiting Denies urinary frequency, Denies dysuria and Denies urinary urgency Neuro Reports Normal hearing present, Denies confusion and Denies syncope Psych Denies confusion Endo Denies fatigue Physical exam (Primary Care) Vital Signs: Last Vital Signs Pulse 72 03/19/23 11:24 BP 140/82 H 03/19/23 11:24 Pulse Ox 98 03/19/23 11:24 Oxygen Delivery Method Room Air 03/19/23 11:24 BMI result Body Mass Index 32.4 Tobacco/Smoking Status: Tobacco use Status Tobacco use date assessed 03/19/23 03/19/23 11:25 Patient Tobacco Use Status Former Tobacco user 03/19/23 11:25 Tobacco use type Cigarette 03/19/23 11:25 e-Cigarette/Vaping Use Never Used 03/19/23 11:25 Thrive Assessment: Date of Thrive Assessment Date Thrive assessed 09/19/22 03/19/23 11:25 Const General: No confusion Orientation/consciousness: No confusion HENMT Head: Yes normocephalic and Yes atraumatic Eyes Conjunctivae: conjunctivae normal Chest Chest palpation & inspection: normal inspection of the chest Resp Effort & Inspection: normal respiratory effort Auscultation: clear to auscultation bilaterally, no crackles, no rhonchi and no wheezes Cardio Rate: regular rate Rhythm: regular rhythm Heart sounds: S1 normal heart sound present and S2 normal heart sound present GI Inspection: Yes normal to inspection Neuro General: No confusion Cranial nerves: Yes Normal hearing present Extrem General: No edema Assessment and Plan Assessment & Plan (1) Lower extremity edema: Code(s): R60.0 - Localized edema Plan: Will draw BNP to rule out fluid overload, if BNP negative likely related to patient being on amlodipine. (2) Hypertension: Code(s): I10 - Essential (primary) hypertension Plan: Continue on amlodipine 5 mg daily and metoprolol 100 mg b.i.d. Blood pressure goal less than 140/90. Follow low-salt diet and exercise. (3) Type 2 diabetes mellitus with diabetic polyneuropathy: Code(s): E11.42 - Type 2 diabetes mellitus with diabetic polyneuropathy Qualifiers: Diabetes mellitus buttermaker insulin use: with intermediate use Qualified Code(s): E11.42 - Type 2 diabetes mellitus with diabetic polyneuropathy; Z79.4 - intermediate (current) use of insulin Plan: Continue on current medications last hemoglobin A1c in office 7.4%. Follow low-carbohydrate diet. Plan keep scheduled follow up with Dr. Zayas Orders: Orders B Type Natriuretic Peptide Today R60.0 - Localized edema Complete Blood Count Auto Diff Today Z13.0 - Encounter for screening for diseases of the blood and blood-forming organs and certain disorders involving the immune mechanism Coding Level of Care Code Est Pt Level 3 (15460) Diagnoses Lower extremity edema R60.0 Hypertension I10 Type 2 diabetes mellitus with diabetic polyneuropathy E11.42; Z79.4 Diabetes mellitus intermediate insulin use: with intermediate use
== END 2023-03-19 11:53 | disposition home or self-care (01) ==
PROVIDERS: PCP Internal Medicine; Visit Provider Nurse Practitioner Family
DX: R60.0 Localized edema (principal); I10 Essential (primary) hypertension; E11.42 Type 2 diabetes mellitus with diabetic polyneuropathy; Z79.4 Long term (current) use of insulin
CPT/HCPCS: 99213

== ENCOUNTER 2023-03-19 11:58 | Outpatient (REF) | payer OTHER, SELFPAY | END 2023-03-19 11:59 | disposition home or self-care (01) | LOC: HO.LAB 11:58 | PROVIDERS: PCP Internal Medicine; Visit Provider Nurse Practitioner Family | DX: Z13.0 Encounter for screening for diseases of the blood and blood-forming organs and certain disorders involving the immune mechanism (principal); R60.0 Localized edema | CPT/HCPCS: 36415; 83880; 85025 ==

== ENCOUNTER 2023-04-10 13:14 | Outpatient (AMB) | payer OTHER, SELFPAY ==
[2023-04-10 13:22] VITALS: BP 148/82; PULSE 86; O2SAT 98; BMI 32.4
--- NOTE | 2023-04-10 13:22 | MHC.PC.OV ---
Vital Signs 04/10/23 13:22 Height 5 ft 2 in Weight 177 lb BMI 32.4 BP 148/82 H Blood Pressure Location Lt brachial Position Sitting Pulse 86 Pulse Source Pulse Oximeter Pulse Oximetry (%) 98 Oxygen Delivery Method Room Air Intake Visit Reasons: leg pain Allergies aspirin [Aspirin] Allergy (Mild, Verified 04/10/23 13:25) Abdominal Pain Penicillins Allergy (Mild, Verified 04/10/23 13:25) NAUSEA/STOMACH PAIN hydrochlorothiazide Allergy (Unknown, Verified 04/10/23 13:25) hypokalemia lisinopril Allergy (Unknown, Verified 04/10/23 13:25) ? swelling Vqxotrr-UBE-JdY Reductase Inhibitor Allergy (Unknown, Verified 04/10/23 13:25) Muscle cramps ibuprofen [From Motrin] Adverse Reaction (Unknown, Verified 04/10/23 13:25) Abdominal Pain Tobacco use date assessed: 03/19/23 Fall risk assessment: No Falls in past year Last assessed Fall Risk: 04/10/23 Dental Screening Dental Screen Date: 04/10/23 Did you have a dental visit in the last 12 months?: Yes Did you have a dental problem in the last 6 months where you did not have access to dental care?: No Was dental information given to patient?: Patient has dentist HPI leg pain HPI Details 73-year-old obese female with diabetes mellitus asthma GERD coronary artery disease hypertension hypercholesterolemia overactive bladder coming in for follow-up last seen in January 2023 review of the notes ER visit 02/28/2023 for cough and sore throat treated with steroids and anti 2 7 diagnosis of viral bronchitis concern on office visit in 03/19/2023 of the lower extremity swelling blood work was requested [facility] Medical History (Updated 04/10/23 @ 13:34 by Junior Zayas MD) Adrenal adenoma Asthma Cataract of left eye Colon cancer screening Coronary artery disease Fracture of toe of left foot GERD (gastroesophageal reflux disease) Glaucoma HLD (hyperlipidemia) Hypercholesterolemia Nocturia more than twice per night Obesity (BMI 30-39.9) On beta kamryn at home Osteoarthritis of both knees Osteopenia Osteoporosis Pleural effusion, right Positive MAGGIE (antinuclear antibody) Preop exam for internal medicine Pulmonary nodule Renal cyst Restless leg syndrome Tubal ligation evaluation 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 Vitamin D deficiency Surgical History History of breast biopsy History of esophagogastroduodenoscopy (EGD) History of laparoscopic cholecystectomy History of tubal ligation Hx of colonoscopy Hx of right cataract extraction Family History Mother HTN (hypertension) Diabetes Brother Lung cancer Sister Cancer, colon Daughter Uterine cancer Father Prostate cancer Social History Household Members: Spouse Housing: Apartment Are you a primary home care administrator to a significant other at home: No Do you presently have visiting nurse or other home services: Yes (AUTOMATIC NAILING MACHINE OPERATOR 02/04 daughter) Alcohol intake: former Patient Tobacco Use Status: Former Tobacco user Quit Date: quit years ago Tobacco use type: Cigarette e-Cigarette/Vaping Use: Never Used Second Hand Smoke Exposure: No service: No Current occupational status: retired and disabled Cognitive needs: No Hearing needs: No Vision needs: Yes (glasses) Questionnaire PHQ-9 Over the last 2 weeks, how often have you been bothered by any of the following problems? 1. Little interest or pleasure in doing things: not at all 2. Feeling down, depressed, or hopeless: not at all 3. Trouble falling or staying asleep, or sleeping too much: not at all 4. Feeling tired or having little energy: not at all 5. Poor appetite or overeating: not at all 6. Feeling bad about yourself - or that you are a failure or have let yourself or your family down: not at all 7. Trouble concentrating on things, such as reading the newspaper or watching television: not at all 8. Moving or speaking so slowly that other people could have noticed. Or the opposite - being so fidgety or restless that you have been moving around a lot more than usual: not at all 9. Thoughts that you would be better off or of hurting yourself in some way: not at all Total score: 0 Depression Screening Interpretation: Negative 11904 - PHQ-9 Billing: Yes Source: Developed by Drs. Jhon Cedeño, Cara Park, Isaias Michael and colleagues, with an educational joey from [employer]. Thrive Questionnaire Date Thrive assessed: 09/19/22 AUDIT C Alcohol Use Questionnaire (AUDIT-C) 1. How often do you have a drink containing alcohol?: Never 3. How often do you have six or more drinks on one occasion?: Never Total Score: 0 QUYNH-7 AMB Questionnaire QUYNH-7 Date QUYNH - 7 assessed: 09/19/22 Source: Developed by Drs. Jhon Cedeño, Cara Park, Isaias Michael and colleagues, with an educational joey from [employer]. Physical exam (Primary Care) Vital Signs: Last Vital Signs Pulse 86 04/10/23 13:22 BP 148/82 H 04/10/23 13:22 Pulse Ox 98 04/10/23 13:22 Oxygen Delivery Method Room Air 04/10/23 13:22 BMI result Body Mass Index 32.4 Tobacco/Smoking Status: Tobacco use Status Tobacco use date assessed 03/19/23 04/10/23 13:26 Patient Tobacco Use Status Former Tobacco user 04/10/23 13:26 Tobacco use type Cigarette 04/10/23 13:26 e-Cigarette/Vaping Use Never Used 04/10/23 13:26 PHQ-9: PHQ-9 Score PHQ-9: Total score 0 04/10/23 13:36 Depression Screening Interpretation: Negative Thrive Assessment: Date of Thrive Assessment Date Thrive assessed 09/19/22 04/10/23 13:26 Const General: alert; No acute distress Eyes Conjunctivae: conjunctivae normal Resp Auscultation: clear to auscultation bilaterally Cardio Rate: regular rate Rhythm: regular rhythm GI Inspection: Yes normal to inspection Extrem General: Yes normal to inspection and No edema Results AMB Hemoglobin A1c AMB Hemoglobin A1c 7.0 % Last Edit by Flori Freeman CMA on 04/10/23 13:41 Assessment and Plan Assessment & Plan (1) Coronary artery disease: Comment: echo normal LV 60-65% June 2019 Code(s): I25.10 - Atherosclerotic heart disease of [place] coronary artery without angina pectoris Qualifiers: Coronary Disease-Associated Artery/Lesion type: [place] artery [place] vs. transplanted heart: absent[place] heart Associated angina: without angina Qualified Code(s): I25.10 - Atherosclerotic heart disease of [place] coronary artery without angina pectoris Plan: Control the cholesterol, weight, blood pressure, diabetes (2) Hypercholesterolemia: Comment: Patient cannot tolerate statins Code(s): E78.00 - Pure hypercholesterolemia, unspecified Plan: Avoid fried foods, chicken skin, eggs, butter margarine, pastries and meat. Be it pork or beef they have a lot of cholesterol LDL goal of less than 70 and triglyceride of less than 150 December blood work shows 96 patient is on Zetia (3) Obesity (BMI 30-39.9): Code(s): E66.9 - Obesity, unspecified Plan: Diet and exercise (4) Type 2 diabetes mellitus with hyperglycemia: Comment: / Charlie Code(s): E11.65 - Type 2 diabetes mellitus with hyperglycemia Plan: Decrease the amount of carbohydrate intake, pasta, bread, rice and potatoes are all sugar and that is aside from all the sweet stuff, remember that fruits are good but they are Sweet also. Hemoglobin A1c goal of less than 7.0 last hemoglobin A1c noted to have 7.11 Jan 2023 (5) Hypertension: Code(s): I10 - Essential (primary) hypertension Plan: Continue with blood pressure medication. Decrease salt intake and exercise patient takes amlodipine 5 mg once a day metoprolol 100 mg twice a day the lower extremity swelling and so will try changing the amlodipine to losartan 50 mg once a day. Will continue to monitor blood pressure (6) GERD (gastroesophageal reflux disease): Code(s): K21.9 - Gastro-esophageal reflux disease without esophagitis Qualifiers: Esophagitis presence: without esophagitis Qualified Code(s): K21.9 - Gastro-esophageal reflux disease without esophagitis Plan: Avoid the foods that causes that usually spicy foods, tomato products, juices, coffee, soda and foods that your sensitive to. After eating do not lie down, allow 3-4 hours before in lie down. And keep the head of bed above 30 degrees to avoid the acid from going up. Orders: Orders AMB Hemoglobin A1c Today Z13.9 - Encounter for screening, unspecified Medications: New losartan 50 mg PO DAILY 30 tabs 2RF I10 - Essential (primary) hypertension Changed From dulaglutide (Trulicity) 1.5 mg (0.5 mL) subcut QWEEK 6 mL 3RF E11.65 - Type 2 diabetes mellitus with hyperglycemia, Z79.4 - chief innovation officer (current) use of insulin To dulaglutide 3 mg (0.5 mL) subcut QWEEK 2 mL 3RF E11.65 - Type 2 diabetes mellitus with hyperglycemia, Z79.4 - penitentiary (current) use of insulin Discontinued amlodipine Discontinued Reason: Doctor's Order 5 mg PO DAILY 90 tabs 3RF I10 - Essential (primary) hypertension Coding Level of Care Code Est Pt Level 4 (19503) Diagnoses Coronary artery disease I25.10 Coronary Disease-Associated Artery/Lesion type: [place] artery [place] vs. transplanted heart: absent[place] heart Associated angina: without angina Hypercholesterolemia E78.00 Obesity (BMI 30-39.9) E66.9 Type 2 diabetes mellitus with hyperglycemia E11.65 Hypertension I10 GERD (gastroesophageal reflux disease) K21.9 Esophagitis presence: without esophagitis
== END 2023-04-10 13:48 | disposition home or self-care (01) ==
PROVIDERS: PCP Internal Medicine; Visit Provider Internal Medicine
DX: I10 Essential (primary) hypertension (principal); E11.65 Type 2 diabetes mellitus with hyperglycemia; E66.9 Obesity, unspecified; Z68.32 Body mass index [BMI] 32.0-32.9, adult; K21.9 Gastro-esophageal reflux disease without esophagitis; I25.10 Atherosclerotic heart disease of native coronary artery without angina pectoris; E78.00 Pure hypercholesterolemia, unspecified
CPT/HCPCS: 83036; 99214

== ENCOUNTER 2023-04-25 10:46 | Outpatient (AMB) | payer OTHER, SELFPAY ==
--- NOTE | 2023-04-25 11:04 | MHC.AMDMED ---
Intake Intake Visit Reasons: DM Chronic Condition Nurse Required: Yes Chronic Condition Nurse Language: Pearl Glue Operator Name: Karen Pt's Daughter Information Interpreted: non-clinical & clinical Accompanied by: Daughter Allergies aspirin [Aspirin] Allergy (Mild, Verified 04/10/23 13:25) Abdominal Pain Penicillins Allergy (Mild, Verified 04/10/23 13:25) NAUSEA/STOMACH PAIN hydrochlorothiazide Allergy (Unknown, Verified 04/10/23 13:25) hypokalemia lisinopril Allergy (Unknown, Verified 04/10/23 13:25) ? swelling Ugijynx-DFQ-ZfY Reductase Inhibitor Allergy (Unknown, Verified 04/10/23 13:25) Muscle cramps ibuprofen [From Motrin] Adverse Reaction (Unknown, Verified 04/10/23 13:25) Abdominal Pain HPI Comprehensive Diabetes Asmnt Most Recent Diabetes Results: Creatinine 0.71 mg/dL (0.5-1.4) 02/28/23 Blood Urea Nitrogen 9 mg/dL (9-16) 02/28/23 Sodium 141 mmol/L (135-145) 02/28/23 Potassium 3.6 mmol/L (3.3-5.1) 02/28/23 Chloride 106 mmol/L (96-108) 02/28/23 Carbon Dioxide 23 mmol/L (22-29) 02/28/23 Calcium 9.7 mg/dL (8.4-10.2) 02/28/23 [facility] Medical History (Updated 04/10/23 @ 13:34 by Junior Zayas MD) Adrenal adenoma Asthma Cataract of left eye Colon cancer screening Coronary artery disease Fracture of toe of left foot GERD (gastroesophageal reflux disease) Glaucoma HLD (hyperlipidemia) Hypercholesterolemia Nocturia more than twice per night Obesity (BMI 30-39.9) On beta kamryn at home Osteoarthritis of both knees Osteopenia Osteoporosis Pleural effusion, right Positive MAGGIE (antinuclear antibody) Preop exam for internal medicine Pulmonary nodule Renal cyst Restless leg syndrome Tubal ligation evaluation 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 Vitamin D deficiency Surgical History History of breast biopsy History of esophagogastroduodenoscopy (EGD) History of laparoscopic cholecystectomy History of tubal ligation Hx of colonoscopy Hx of right cataract extraction Family History Mother HTN (hypertension) Diabetes Brother Lung cancer Sister Cancer, colon Daughter Uterine cancer Father Prostate cancer Social History Household Members: Spouse Housing: Apartment Are you a primary livestock caretaker to a significant other at home: No Do you presently have visiting nurse or other home services: Yes (EXTRUDING DEPARTMENT SUPERVISOR 24/7 daughter) Alcohol intake: former Patient Tobacco Use Status: Former Tobacco user Quit Date: quit years ago Tobacco use type: Cigarette e-Cigarette/Vaping Use: Never Used Second Hand Smoke Exposure: No service: No Current occupational status: retired and disabled Cognitive needs: No Hearing needs: No Vision needs: Yes (glasses) Assessment & Plan Assessment & Plan (1) Type 2 diabetes mellitus with hyperglycemia: Comment: Angel Guerra Code(s): E11.65 - Type 2 diabetes mellitus with hyperglycemia Plan: Learning objectives: The patient was provided with verbal and written education on the following topics as outlined below. The patient met all learning objectives and was able to verbalize understanding and provide teach back of education topics discussed . The patient was provided with the opportunity to ask questions and all questions were answered. Patient Assessment Assess patient education level/literacy/barriers Patient questions/concerns, patient was seen by Dr. Shah in December 2022 that visit patient's A1c was 6.2%, Dr. Shah concerned about hypoglycemia. Patient reports she does not experience symptoms when her glucose drops. Her current A1c from 04/10/2023 7%. Patient recently had Trulicity increased from 0.75 mg to 1.5 mg for by PCP. Patient complains nausea and vomiting after taking medication. Recommended to patient her daughter she call patient's PCP regarding symptoms What is Diabetes? Pathophysiology How the body produces and uses insulin Identify type of DM Risk factors Signs of Diabetes Brief overview of Diabetes Management Monitoring blood sugar Following a meal plan Regular exercise Maintaining a healthy weight Taking medication as needed Members of the care team (PCP, RN, MA, RD, CDE, art objects repairer) Blood glucose monitoring When/how often to test Target blood sugar ranges Patient did not bring meter to today's visit CGM Info Instructed Pt on what CGM can and can't do CGM Can: Give Pt minute by minute reading of glucose levels Displays glucose trend arrows that represents the direction glucose levels are fluctuating Give insight on decisions about how to dose insulin CGM cannot: Improve glucose control on its own Completely eliminate the need for all finger sticks Make dosing decision for you CGM is the reading of glucose in the interstitial fluid not actual blood glucose, finger sticks are still necessary when Pt's symptom?s do not match sensor reading and if sensors prompts Pt to do a fingerstick Patient? is interested in the Dexcom G7 Reviewed Medicare guidelines for obtaining CGM Reviewed delay of CGM from fingersticks Reminded pt that if symptoms do not match sensor still needs to check fingersticks. Introduction to Nutrition Importance of healthy diet in managing DM Diet is personalized to individual preference Review patient?s regular diet/food preferences Who prepares meals/does food shopping/ Dining out?/ Barriers? How diet effects glucose Eating 3 balanced meals a day with small, healthy snacks between meals Review food groups Carbohydrates: What is a carbohydrate/Which food/food groups are considered carbohydrates Effect of carbohydrates on blood glucose Portion sizes Reading food labels Basic carb counting (if applicable per nursing assessment) Plate method Meal planning Recommendations: Follow plate method, consistent carbs and read nutritional labels. Smart Goal: Educational Materials: The patient was provided with the following written educational materials: Planning Healthy Meals Handout Patient Response to instructions: Comprehension of Instructions: Fair Readiness to make changes: Contemplation How confident they feel about making changes: fair Patient Instructions: Incluir actividad diaria regular. ADA recomienda 30 minutos de ejercicio 5 d?as a la semana. P?rdida de peso, hable con el PCP o el cardi?logo antes de comenzar un nuevo plan. Mida el nivel de az?car en la adi seg?n las indicaciones; Ayuno y comida m?s kelsea de 2hpp. Observe las tendencias en los resultados. Utilice los resultados y eval?e c?mo los alimentos, la actividad f?itz y los medicamentos afectan los resultados de az?car en la adi. Lleve el gluc?metro o CGM a la pr?xima visita. Conocer los medicamentos para la diabetes, velásquez acci?n, los efectos secundarios, la eficacia, la toxicidad, la dosis prescrita, el momento y la frecuencia de administraci?n apropiados, el efecto de las dosis olvidadas y retrasadas y las instrucciones de almacenamiento, viaje y seguridad. Coding Level of Care Code Est Pt Level 1 (70907) Diagnoses Type 2 diabetes mellitus with hyperglycemia E11.65
== END 2023-04-25 11:34 | disposition home or self-care (01) ==
PROVIDERS: PCP Internal Medicine; Visit Provider Registered Nurse Diabetes Educator
DX: E11.65 Type 2 diabetes mellitus with hyperglycemia (principal)

== ENCOUNTER → 2023-04-25 10:46 | Outpatient (BNVA) | payer OTHER, SELFPAY | PROVIDERS: PCP Internal Medicine; Visit Provider Registered Nurse Diabetes Educator | DX: E11.65 Type 2 diabetes mellitus with hyperglycemia (principal) | CPT/HCPCS: 99211 ==

== ENCOUNTER 2023-05-10 23:17 | Inpatient (IN) | payer OTHER, SELFPAY ==
--- NOTE | ~2023-05-10 | XR_ITS ---
EXAMINATION: XR RIBS, RIGHT CLINICAL INFORMATION: Trauma. COMPARISON: 02/28/2023 TECHNIQUE: A frontal chest and 3 views of the right ribs were obtained. FINDINGS: Lungs are clear. No consolidation, pneumothorax, or pleural effusion. The cardiomediastinal silhouette and pulmonary vasculature are normal. Osseous structures are unremarkable. Ribs are intact. No fractures are identified. XR/XR ribs RT min 3V w CXR1V IMPRESSION: Unremarkable examination.
[2023-05-10 23:27] VITALS: BP 193/99; BP 198/102; PULSE 80; RESP 13; TEMP 36.7; O2SAT 96; O2SAT 99; BMI 32.8
--- NOTE | 2023-05-10 23:37 | ECG_ITS ---
Test Reason : FALL Blood Pressure : / mmHG Vent. Rate : 082 BPM Atrial Rate : 082 BPM P-R Int : 136 ms QRS Dur : 078 ms QT Int : 390 ms P-R-T Axes : 060 008 -18 degrees QTc Int : 455 ms Normal sinus rhythm ST & T wave abnormality, consider inferior ischemia Abnormal ECG When compared with ECG of 28-FEB-2023 18:31, T wave amplitude has increased in Anterolateral leads ST now depressed in Inferior leads Referred By: Generic ED Physician Electronically Signed By:JESSICA ROY
--- NOTE | 2023-05-10 23:44 | ED_ITS ---
HPI - Fall General Chief Complaint: Fall Stated Complaint: lower back pain post fall Time Seen by Provider: 05/10/23 23:42 Source: patient Mode of arrival: EMS Limitations: no limitations History of Present Illness HPI Narrative: Patient walks with walker got up earlier at 08:00 typical the phone got entangled in blankets and fell backwards hitting her upper back no significant head injury no loss of consciousness patient able to ambulate with cane comes here as still having the pain on the right side of the chest no shortness of breath no cough patient able to ambulate without significant pain in the hip Related Data Home Medications Medication Instructions Recorded Confirmed latanoprost 0.005 % eye drops 1 drp ophthalmic (eye) BEDTIME 09/20/20 01/01/23 timolol maleate 0.5 % eye drops 1 drp ophthalmic (eye) QAM 09/20/20 01/01/23 multivitamin 1 tab PO DAILY 12/01/22 01/01/23 insulin glargine 100 unit/mL (3 18 unit subcut BEDTIME 01/22/23 mL) subcutaneous pen (Lantus Solostar U-100 Insulin) Previous Rx's Medication Instructions Recorded albuterol sulfate 2.5 mg/3 mL 2.5 mg (3 mL) continuous 06/29/20 (0.083 %) solution for nebulization nebulization Q4-6H PRN bronchospasm #180 mL nebulizers (Altera Nebulizer #1 ea 06/29/20 System) blood sugar diagnostic (OneTouch #50 ea 11/17/21 Verio test strips) diclofenac sodium 1 % topical gel 2 g topical QID #100 grams 06/15/22 (Voltaren Arthritis Pain) albuterol sulfate 90 mcg/actuation 2 puff inhalation Q4-6H PRN 09/04/22 aerosol inhaler shortness of breath or wheezing #6.7 grams benzonatate 100 mg capsule 100 mg PO TID PRN cough #14 caps 09/04/22 fluticasone 250 mcg-salmeterol 50 1 ea PO BID #60 ea 09/17/22 mcg/dose blistr powdr for inhalation (Wixela Inhub) blood pressure monitor (Blood #1 ea 11/01/22 Pressure Kit) fexofenadine 180 mg tablet 180 mg PO DAILY #30 tabs 11/01/22 (Alison Allergy) metformin 500 mg tablet 1,000 mg PO BID 30 days #120 caps 01/01/23 ezetimibe 10 mg tablet (Zetia) 10 mg PO DAILY #90 tabs 01/15/23 docusate sodium 100 mg capsule 100 mg PO BEDTIME #90 caps 01/22/23 gabapentin 300 mg capsule 300 mg PO BEDTIME #30 caps 02/15/23 hydrocodone-homatropine 5 mg-1.5 5 ml PO Q4-6H PRN cough #60 mL 02/28/23 mg/5 mL (5 mL) oral syrup cholecalciferol (vitamin D3) 50 50 mcg PO DAILY 90 days #90 caps 03/01/23 mcg (2,000 unit) capsule tolterodine 2 mg capsule,extended 4 mg PO DAILY 90 days #180 caps 03/01/23 release 24 hr pantoprazole 40 mg tablet,delayed 40 mg PO BID #180 tabs 03/07/23 release metoprolol tartrate 100 mg tablet 100 mg PO BID #180 tabs 03/22/23 dulaglutide 3 mg/0.5 mL 3 mg (0.5 mL) subcut QWEEK #2 mL 04/10/23 subcutaneous pen injector losartan 50 mg tablet 50 mg PO DAILY #30 tabs 04/10/23 lancets 33 gauge #100 ea 05/08/23 adult pull ups #180 ea 05/09/23 Allergies Allergy/AdvReac Type Severity Reaction Status Date / Time aspirin [Aspirin] Allergy Mild Abdominal Verified 04/10/23 13:25 Pain Penicillins Allergy Mild NAUSEA/STOMACH Verified 04/10/23 13:25 PAIN hydrochlorothiazide Allergy Unknown hypokalemia Verified 04/10/23 13:25 lisinopril Allergy Unknown ? swelling Verified 04/10/23 13:25 Tzswhev-UFC-DvP Reductase Allergy Unknown Muscle Verified 04/10/23 13:25 Inhibitor cramps ibuprofen [From Motrin] AdvReac Unknown Abdominal Verified 04/10/23 13:25 Pain Review of Systems Review of Systems: Yes all other systems are reviewed and are negative [facility] Past Medical History Medical History Adrenal adenoma Asthma Cataract of left eye Colon cancer screening Coronary artery disease Fracture of toe of left foot GERD (gastroesophageal reflux disease) Glaucoma HLD (hyperlipidemia) Hypercholesterolemia Nocturia more than twice per night Obesity (BMI 30-39.9) On beta kamryn at home Osteoarthritis of both knees Osteopenia Osteoporosis Pleural effusion, right Positive MAGGIE (antinuclear antibody) Preop exam for internal medicine Pulmonary nodule Renal cyst Restless leg syndrome Tubal ligation evaluation 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 Vitamin D deficiency Surgical History History of breast biopsy History of esophagogastroduodenoscopy (EGD) History of laparoscopic cholecystectomy History of tubal ligation Hx of colonoscopy Hx of right cataract extraction Family History Family History Mother HTN (hypertension) Diabetes Brother Lung cancer Sister Cancer, colon Daughter Uterine cancer Father Prostate cancer Social History Social History Household Members: Spouse Housing: Apartment Are you a primary animal caregiver to a significant other at home: No Do you presently have visiting nurse or other home services: Yes (SUPER[employer] 24/7 daughter) Alcohol intake: never Patient Tobacco Use Status: Former Tobacco user Quit Date: quit years ago Tobacco use type: Cigarette e-Cigarette/Vaping Use: Never Used Second Hand Smoke Exposure: No Use of substances other than those prescribed or required for medical reasons: No Advance Directives: No Advance Directives Information Provided: No Nutrition Risks: No Nutritional Risk service: No Current occupational status: retired and disabled Cognitive needs: No Hearing needs: No Vision needs: Yes (glasses) Physical Exam Vital Signs: Vital Signs: Last Vital Signs Temp 97.8 F 05/11/23 02:22 Pulse 81 05/11/23 02:22 Resp 18 05/11/23 02:22 BP 152/86 H 05/11/23 02:22 Pulse Ox 96 05/11/23 02:22 O2 Del Method Room Air 05/11/23 02:22 BMI result Body Mass Index 32.8 Appearance: Alert. Oriented X3. No acute distress. Eyes: PERRLA, No Nystagmus ENT: Pharynx normal. Oral Mucosa moist Neck: Normal inspection. Neck supple. CVS: Normal heart rate and rhythm. Pulses normal. Respiratory: No respiratory distress. Equal air entry bilateral, no wheezing/rales/rhonchi slight tenderness right anterior ribs in the midaxillary area no crepitation Abdomen: Soft and nontender. Bowel sounds are present, no mass palpable, no CVA tenderness Skin: Skin warm and dry. Normal skin color. Normal skin turgor. Extremities: No lower extremity edema. No calf tenderness stable pelvis no significant hip pain good range of movement, shoulder good range of movement Neuro: Oriented X 3. No motor deficit. No sensory deficit.No cerebellar signs , cranial nerves II-XII intact Medications Administered Generic Name Dose Route Start Last Admin Trade Name Freq PRN Reason Stop Dose Admin Heparin Sodium/Sodium Chloride 25,000 unit in 250 mls @ 0 mls/hr 05/11/23 04:15 05/11/23 05:00 Heparin Sodium,Porcine/1/2ns IVCONT 12 units/kg/hr .Q0M EDNA 9.77 mls/hr Administration Protocol Per Protocol Discontinued Medications Generic Name Dose Route Start Last Admin Trade Name Freq PRN Reason Stop Dose Admin Aspirin 81 mg 05/11/23 04:17 05/11/23 04:44 Aspirin Enteric Coated 81 Mg Tablet.Dr MILLER 05/11/23 04:18 81 mg ONCE ONE Administration Heparin Sodium (Porcine) 5,000 unit 05/11/23 03:42 05/11/23 04:50 Heparin Sodium,Porcine 5,000 Unit/Ml Vial IVPUSH 05/11/23 03:43 5,000 unit ONCE ONE Administration Morphine Sulfate 4 mg 05/11/23 02:35 05/11/23 02:55 Morphine Sulfate 4 Mg/Ml Cartridge IVPUSH 05/11/23 02:36 4 mg ONCE ONE Administration Protocol Nitroglycerin 1 inch 05/11/23 03:47 05/11/23 04:49 Nitroglycerin 2 % Oint 1 Gm Packet TRANSDERMA 05/11/23 03:48 1 inch ONCE ONE Administration Ondansetron HCl 4 mg 05/11/23 02:35 05/11/23 02:55 Ondansetron Hcl 4 Mg/2 Ml Vial IVPUSH 05/11/23 02:36 4 mg ONCE ONE Administration Tramadol HCl 50 mg 05/11/23 00:03 05/11/23 00:15 Tramadol Hcl 50 Mg Tablet PO 05/11/23 00:04 50 mg ONCE ONE Administration Medical Decision Making Medical Decision Making MDM Narrative: Patient with right-sided chest pains after fall EKG showed slightly increased ST depression in inferior leads patient had nuclear stress test on 09/30 which was negative 0150 patient x-ray is negative for rib fracture lab showed elevated troponin I 46.5 been denied any left-sided chest pain etiology not very clear will recheck troponin I in 2 hours Patient repeat troponin is still elevated to 387.9 patient has non STEMI with ST depression inferior leads will start patient on heparin bolus with a heparin drip case discussed with hospitalist will admit the patient at this time patient does not have STEMI nitropaste was applied aspirin was given Differential Diagnosis Differential Diagnoses: The differential diagnosis associated with the presentation includes Rib fracture//manubrium fracture/ACS Admission/Observation Consideration of admission/observation: Escalation of care including admission/observation considered Consult Healthcare Provider Management of the patient was discussed with: Hospitalist Lab Data [facility] Lab Attestation statement: I reviewed the patient's lab results. 05/11/23 00:40 05/11/23 00:40 Labs: Lab Results 05/10/23 05/11/23 05/11/23 Range/Units 23:45 00:40 00:40 WBC 9.4 (4.8-10.8) X10*3/uL RBC 3.75 L (4.20-5.50) X10*6/uL Hgb 11.1 L (12.0-16.0) g/dl Hct 34.2 L (37.0-47.0) % MCV 91.2 (80.0-98.0) fL MCH 29.6 (27.0-33.0) pg MCHC 32.5 (31.0-35.0) g/dl RDW 14.5 (11.0-16.0) % Plt Count 277 (160-400) X10*3/uL MPV 10.6 (9.4-12.3) fL Absolute Nucleated RBC 0.000 (0.0-0.012) X10*3/uL Nucleated RBC % (auto) 0.0 (0.0-0.2) /100WBC PT (11.1-13.3) SEC INR (0.9-1.1) APTT (26.0-36.4) SEC Sodium 139 (135-145) mmol/L Potassium 4.1 (3.3-5.1) mmol/L Chloride 104 (96-108) mmol/L Carbon Dioxide 23 (22-29) mmol/L Anion Gap 16 (12-20) BUN 10 (9-16) mg/dL Creatinine 0.72 (0.5-1.4) mg/dL Estim Creat Clear Calc 66.4 Estimated GFR > 60 POC Glucose 148 H (60-115) mg/dL Random Glucose 185 H (60-115) mg/dL Calcium 9.5 (8.4-10.2) mg/dL Total Bilirubin 0.3 (0.0-1.0) mg/dL AST 19 (5-31) U/L ALT 19 (0-31) U/L Alkaline Phosphatase 93 (39-117) U/L Troponin I High Sens (<3.5-17.0) ng/L Total Protein 6.8 (6.5-8.0) g/dL Albumin 3.8 (3.5-5.0) g/dL 05/11/23 05/11/23 05/11/23 Range/Units 00:40 03:09 04:05 WBC (4.8-10.8) X10*3/uL RBC (4.20-5.50) X10*6/uL Hgb (12.0-16.0) g/dl Hct (37.0-47.0) % MCV (80.0-98.0) fL MCH (27.0-33.0) pg MCHC (31.0-35.0) g/dl RDW (11.0-16.0) % Plt Count (160-400) X10*3/uL MPV (9.4-12.3) fL Absolute Nucleated RBC (0.0-0.012) X10*3/uL Nucleated RBC % (auto) (0.0-0.2) /100WBC PT 11.4 (11.1-13.3) SEC INR 0.9 (0.9-1.1) APTT 27.2 (26.0-36.4) SEC Sodium (135-145) mmol/L Potassium (3.3-5.1) mmol/L Chloride (96-108) mmol/L Carbon Dioxide (22-29) mmol/L Anion Gap (12-20) BUN (9-16) mg/dL Creatinine (0.5-1.4) mg/dL Estim Creat Clear Calc Estimated GFR POC Glucose (60-115) mg/dL Random Glucose (60-115) mg/dL Calcium (8.4-10.2) mg/dL Total Bilirubin (0.0-1.0) mg/dL AST (5-31) U/L ALT (0-31) U/L Alkaline Phosphatase (39-117) U/L Troponin I High Sens 46.5 H 387.9 H* D (<3.5-17.0) ng/L Total Protein (6.5-8.0) g/dL Albumin (3.5-5.0) g/dL Independent Interpretation I performed an independent interpretation of an: EKG Interpretation: Normal sinus rhythm heart rate 82 beats per minute nonspecific ST depression inferior leads no acute ST elevation when compared to EKG on 02/28 ST depression has increased Radiology Impression Discussion of test interpretation with radiology: I have reviewed the radiologist's reading. Radiologist Impression: No rib fracture Critical Care Time Critical Care Time Critical Care Time: Yes Total Critical Care Time: 55 Attestation: The patient was critically ill with a high probability of imminent or life threatening deterioration. I spent greater than 60 minutes of discontinuous time evaluating the patient,delivering critical care at the bedside, discussing and evaluating pertinent data with consultants. Critical care time does not include time spent performing separately billable procedures or teaching. Total time spent performing critical care was 55 minutes. Discharge Plan Discharge Clinical Impression: NSTEMI (non-ST elevated myocardial infarction), Fall Patient Disposition: Admitted As Inpatient
[2023-05-10 23:49] LABS: Glucose, Whole Blood 148 mg/dL (60-115)
[2023-05-11] MEDS: traMADoL HCL 50 MG TABLET PO (00:15)
[2023-05-11 00:46] LABS: Hematocrit 34.2 % (37.0-47.0); Hemoglobin 11.1 g/dl (12.0-16.0); Mean Corpuscular HGB Conc 32.5 g/dl (31.0-35.0); Mean Corpuscular Hemoglobin 29.6 pg (27.0-33.0); Mean Corpuscular Volume 91.2 fL (80.0-98.0); Mean Platelet Volume 10.6 fL (9.4-12.3); Platelet Count 277 X10*3/uL (160-400); Red Blood Count 3.75 X10*6/uL (4.20-5.50); Red Cell Distribution Width 14.5 % (11.0-16.0); White Blood Count 9.4 X10*3/uL (4.8-10.8)
[2023-05-11 01:00] LABS: Alanine Aminotransferase 19 U/L (0-31); Albumin Level 3.8 g/dL (3.5-5.0); Alkaline Phosphatase 93 U/L (39-117); Anion Gap 16 (12-20); Aspartate Amino Transferase 19 U/L (5-31); Bilirubin Total 0.3 mg/dL (0.0-1.0); Blood Urea Nitrogen 10 mg/dL (9-16); Calcium 9.5 mg/dL (8.4-10.2); Carbon Dioxide 23 mmol/L (22-29); Chloride 104 mmol/L (96-108); Creatinine Clr Calc Pharmacy 66.4; Estimated Glomerular Filt Rate > 60; Glucose Random 185 mg/dL (60-115); Potassium 4.1 mmol/L (3.3-5.1); Sodium 139 mmol/L (135-145); Total Protein 6.8 g/dL (6.5-8.0)
[2023-05-11 01:06] LABS: Troponin-I High Sensitivity 46.5 ng/L (<3.5-17.0)
[2023-05-11 02:22] VITALS: BP 152/86; PULSE 81; RESP 18; TEMP 36.6; O2SAT 96
[2023-05-11] MEDS: Morphine Sulfate 4 MG/ML CARTRIDGE IVPUSH (02:55)
[2023-05-11] MEDS: ondansetron HCL 4 MG/2 ML VIAL IVPUSH (02:55)
[2023-05-11 03:39] LABS: Troponin-I High Sensitivity 387.9 ng/L (<3.5-17.0)
--- NOTE | 2023-05-11 03:40 | PC.NURSE ---
Critical trop 387.9 notified NICOLASA Warner and Dr. Howard.
--- NOTE | 2023-05-11 03:43 | ECG_ITS ---
Test Reason : REPEAT Blood Pressure : / mmHG Vent. Rate : 086 BPM Atrial Rate : 086 BPM P-R Int : 134 ms QRS Dur : 078 ms QT Int : 390 ms P-R-T Axes : 052 002 -10 degrees QTc Int : 466 ms Normal sinus rhythm Nonspecific ST and T wave abnormality Abnormal ECG When compared with ECG of 10-MAY-2023 23:40, No significant change was found Referred By: Bill Dorsey Electronically Signed By:JESSICA ROY
[2023-05-11 04:16] LABS: INTERNATIONAL NORM RATIO 0.9 (0.9-1.1); Prothrombin Time 11.4 SEC (11.1-13.3)
[2023-05-11 04:19] LABS: Partial Thromboplastin Time 27.2 SEC (26.0-36.4)
--- NOTE | 2023-05-11 04:19 | P.HPHOSP_ITS ---
History of Present Illness Date of Service: 05/11/23 Chief Complaint: Fall This is a 73-year-old female with pertinent history of insulin-dependent diabetes mellitus, essential hypertension, gastroesophageal reflux disease, mixed hyperlipidemia who presents to the emergency department after a fall. Patient states that her phone was ringing and she got up to receive it. She does not remember what happened and the next thing she knew she was lying on her back on the ground. She thinks she got entangled in the phone cords. No dizziness or lightheadedness prior to the fall. No chest discomfort or palpitations or loss of consciousness prior to the fall. Does endorse history of high blood pressure and diabetes mellitus. Quit cigarette smoking 30 years ago. Patient states no cardiac stents as far as she knows. She denies fever, chills, palpitations, shortness of breath, abdominal pain, changes in urinary or bowel habits. Endorses right-sided chest pain due to the fall. In the emergency department, troponin was found to be elevated and patient was initiated on IV heparin. Review of Systems Constitutional: Constitutional: Reports no additional constitutional complaints Cardiovascular: Cardiovascular: Reports chest pain Respiratory: Respiratory: Reports no additional respiratory complaints Gastrointestinal: Gastrointestinal: Reports no additional gastrointestinal complaints Genitourinary: Genitourinary: Reports no additional female genitourinary complaints Musculoskeletal: Musculoskeletal: Reports no additional musculoskeletal complaints [facility] Medical History Adrenal adenoma Asthma Cataract of left eye Colon cancer screening Coronary artery disease Fracture of toe of left foot GERD (gastroesophageal reflux disease) Glaucoma HLD (hyperlipidemia) Hypercholesterolemia Nocturia more than twice per night Obesity (BMI 30-39.9) On beta kamryn at home Osteoarthritis of both knees Osteopenia Osteoporosis Pleural effusion, right Positive MAGGIE (antinuclear antibody) Preop exam for internal medicine Pulmonary nodule Renal cyst Restless leg syndrome Tubal ligation evaluation 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 Vitamin D deficiency Family History Mother HTN (hypertension) Diabetes Brother Lung cancer Sister Cancer, colon Daughter Uterine cancer Father Prostate cancer Surgical History History of breast biopsy History of esophagogastroduodenoscopy (EGD) History of laparoscopic cholecystectomy History of tubal ligation Hx of colonoscopy Hx of right cataract extraction Social History Household Members: Spouse Housing: Apartment Are you a primary foster care social worker to a significant other at home: No Do you presently have visiting nurse or other home services: Yes (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) Alcohol intake: never Patient Tobacco Use Status: Former Tobacco user Quit Date: quit years ago Tobacco use type: Cigarette e-Cigarette/Vaping Use: Never Used Second Hand Smoke Exposure: No Use of substances other than those prescribed or required for medical reasons: No Advance Directives: No Advance Directives Information Provided: No service: No Current occupational status: retired and disabled Cognitive needs: No Hearing needs: No Vision needs: Yes (glasses) Meds Allergies Allergy/AdvReac Type Severity Reaction Status Date / Time aspirin [Aspirin] Allergy Mild Abdominal Verified 04/10/23 13:25 Pain Penicillins Allergy Mild NAUSEA/STOMACH Verified 04/10/23 13:25 PAIN hydrochlorothiazide Allergy Unknown hypokalemia Verified 04/10/23 13:25 lisinopril Allergy Unknown ? swelling Verified 04/10/23 13:25 Cwslkem-CLK-YnV Reductase Allergy Unknown Muscle Verified 04/10/23 13:25 Inhibitor cramps ibuprofen [From Motrin] AdvReac Unknown Abdominal Verified 04/10/23 13:25 Pain Active Medications: Current Medications Heparin Sodium (Porcine) (Heparin Sodium,Porcine 5,000 Unit/Ml Vial) 3,200 unit 40 unit/kg (3200 unit) IVPUSH PROTOCOL BOLUS PRN; Protocol PRN Reason: 40 unit/kg - Heparin Protocol Heparin Sodium (Porcine) (Heparin Sodium,Porcine 5,000 Unit/Ml Vial) 6,500 unit 80 unit/kg (6500 unit) IVPUSH PROTOCOL BOLUS PRN; Protocol PRN Reason: 80 unit/kg - Heparin Protocol Heparin Sodium/Sodium Chloride (Heparin Sodium,Porcine/1/2ns) 25,000 unit in 250 mls @ 0 mls/hr IVCONT .Q0M EDNA; Protocol Home Medications Medication Instructions Recorded Confirmed Last Taken Type latanoprost 0.005 % eye drops 1 drp ophthalmic (eye) BEDTIME 09/20/20 01/01/23 Unknown History timolol maleate 0.5 % eye drops 1 drp ophthalmic (eye) QAM 09/20/20 01/01/23 Unknown History multivitamin 1 tab PO DAILY 12/01/22 01/01/23 Unknown History insulin glargine 100 unit/mL (3 18 unit subcut BEDTIME 01/22/23 Unknown History mL) subcutaneous pen (Lantus Solostar U-100 Insulin) Physical Exam Vital Signs and Narrative: Vital Signs: Last Vital Signs Temp 97.8 F 05/11/23 02:22 Pulse 81 05/11/23 02:22 Resp 18 05/11/23 02:22 BP 152/86 H 05/11/23 02:22 Pulse Ox 96 05/11/23 02:22 O2 Del Method Room Air 05/11/23 02:22 BMI result Body Mass Index 32.6 Elderly female lying in bed in no distress Neck supple, no JVD Regular rate and rhythm, S1-S2 heard Regular breath sounds bilaterally, no wheezing or crackles appreciated Abdomen soft nontender, no guarding, no rigidity Patient is awake, alert and oriented to self, place, time and person ; no focal motor deficit Psych: Normal mood Results Labs 05/11/23 00:40 05/11/23 00:40 Labs: Laboratory Results - last 24 hr 05/10/23 05/11/23 05/11/23 23:45 00:40 00:40 MCV 91.2 MCH 29.6 MCHC 32.5 RDW 14.5 Plt Count 277 MPV 10.6 Absolute Nucleated RBC 0.000 Nucleated RBC % (auto) 0.0 Anion Gap 16 Estim Creat Clear Calc 66.4 Estimated GFR > 60 POC Glucose 148 H Random Glucose 185 H Calcium 9.5 Total Bilirubin 0.3 AST 19 ALT 19 Alkaline Phosphatase 93 Total Protein 6.8 Albumin 3.8 Imaging Radiologist's Impressions: Impressions Ribs X-Ray 05/11/23 00:19 IMPRESSION: Unremarkable examination. Assessment and Plan (1) NSTEMI (non-ST elevated myocardial infarction): Status: Acute Plan This is a 73-year-old female with pertinent history of insulin-dependent diabetes mellitus, essential hypertension, gastroesophageal reflux disease, mixed hyperlipidemia who presents to the emergency department after a fall and was found to have elevated troponin. #. NSTEMI. Will admit patient with monitor car operator. IV heparin initiated in the ER. Consulting Cardiology and obtaining echo. Administered aspirin. #. Insulin-dependent diabetes mellitus with hyperglycemia. Reduce home basal insulin. Initiating Accu-Cheks with sliding scale insulin #. Essential hypertension. Continue home antihypertensives #. Gastroesophageal reflux disease. On PPI Med rec pending DVT prophylaxis: IV heparin Full code Admit as inpatient and will require two night minimum hospital stay for IV heparin Time Spent With Patient Time: Total time managing care of this patient today ____ minutes. Quality Stroke Does the patient have a stroke diagnosis?: No VTE Prior VTE?: No VTE Risk Level:: Medical - moderate - high VTE Device Contraindication: Treatment Not Indicated VTE Drug Contraindication: N/A - Med Ordered
[2023-05-11] MEDS: Aspirin Enteric Coated 81 MG TABLET.DR PO (04:44)
[2023-05-11] MEDS: Nitroglycerin 2 % Oint 1 GM Packet 1 INCH TRANSDERMA (04:49)
[2023-05-11] MEDS: Heparin Sodium,Porcine 5,000 UNIT/ML VIAL 5000 UNIT IVPUSH (04:50)
[2023-05-11] MEDS: Heparin Sodium,Porcine/1/2NS 25,000 UNIT/250 ML IV.SOLN 9.77 UNIT IVCONT (05:00)
[2023-05-11 05:12] LABS: MANUAL DIFF FLAG NO
[2023-05-11 05:14] LABS: Basophils Absolute Auto 0.1 X10*3/uL (0.0-0.2); Basophils Percent Auto 0.9 % (0-2); Eosinophils Absolute Auto 0.2 X10*3/uL (0.0-0.4); Eosinophils Percent Auto 2.4 % (0-4); Hematocrit 33.4 % (37.0-47.0); Hemoglobin 10.7 g/dl (12.0-16.0); Imm Gran Abs Auto 0.04 X10*3/uL (0.00-0.03); Imm Gran Pct Auto 0.4 % (0.0-0.4); Lymphocytes Absolute Auto 1.9 X10*3/uL (1.2-4.9); Lymphocytes Percent Auto 20.6 % (20-40); Mean Corpuscular Hemoglobin 29.6 pg (27.0-33.0); Mean Corpuscular Volume 92.3 fL (80.0-98.0); Monocytes Absolute Auto 0.9 X10*3/uL (0.1-1.2); Neutrophils Absolute Auto 6.1 x10*3/uL (2.0-8.3); Neutrophils Percent Auto 65.7 % (45-73); Platelet Count 279 X10*3/uL (160-400); Red Blood Count 3.62 X10*6/uL (4.20-5.50); Red Cell Distribution Width 14.5 % (11.0-16.0); White Blood Count 9.3 X10*3/uL (4.8-10.8)
[2023-05-11 05:27] LABS: Anion Gap 17 (12-20); Blood Urea Nitrogen 10 mg/dL (9-16); Calcium 9.3 mg/dL (8.4-10.2); Carbon Dioxide 21 mmol/L (22-29); Chloride 104 mmol/L (96-108); Creatinine Clr Calc Pharmacy 69.6; Estimated Glomerular Filt Rate > 60; Glucose Random 163 mg/dL (60-115); Potassium 4.2 mmol/L (3.3-5.1); Sodium 138 mmol/L (135-145)
[2023-05-11 05:37] LABS: Troponin-I High Sensitivity 797.4 ng/L (<3.5-17.0)
[2023-05-11 06:36] VITALS: BP 135/69; PULSE 70; RESP 16; TEMP 36.5; O2SAT 96
--- NOTE | 2023-05-11 06:59 | PC.NURSE ---
This RN assumed care of pt at approximately 0300. P alert and oriented X4, Frisian speaking only. Troponin elevated, ptt drawn, Heparin gtt started at 12u/kg/hr through #20 R-forearm. Pt reports 3/10 pain to Right shoulder declined tylenol at this time. Report given to Yenni on IMC and to Arabella ED RN for admission into bed 469 and will be transported by radiologic technology instructor.
--- NOTE | 2023-05-11 07:00 | CA_ITS ---
Transthoracic Echocardiogram Patient (Last, First, Middle): Anahy Hogan, Gender: Female Date of : 1950 Age: 73 Procedure Date: 05/11/2023 Procedure Type: Transthoracic Echocardiogram Location: [facility] [place] Height: 157.48 cm Weight: 80.74 kg BSA: 1.82 m2 Heart Rate: bpm BP: 135 / 69 mmHg Legal Secretary Receptionist: Referring MD: Keesha Pimentel MD Symptoms: NSTEMI Study Quality: Fair ECG Rhythm: Sinus Conclusions: - Limited echocardiogram for assessment of regional wall motion abnormalities. - basal to mid inferolateral wall is hypokinetic. Findings Left Ventricle Normal left ventricular size and systolic function. There is moderately increased left ventricular wall thickness. The visually estimated ejection fraction is between 65-70%. There is evidence of regional wall motion abnormalities. Wall Motion Rest Echo Findings The apical lateral and mid inferolateral segments are hypokinetic. Right Ventricle Normal right ventricular cavity size and systolic function. Measurements 2D Linear Measurements IVSd: 1.28 0.6-0.9/0.6-1.0 cm LVIDd: 4.33 3.9-5.3/4.2-5.9 cm LVIDd Index: 2.38 2.4-3.2/2.2-3.1 cm/m2 LVIDs: 2.85 2.0-3.6 cm LVPWd: 1.22 0.7-1.1 cm LV Mass: 246.93 67-162/88-224 g LV Mass Index: 135.67 43-95/49-115 g/m2 Updated in Other Vendor System with Status of Final Brock Bales MD electronically signed on 05/12/2023 11:54:08 AM with status of Final
[2023-05-11 07:36] LABS: Glucose, Whole Blood 148 mg/dL (60-115)
[2023-05-11] MEDS: 0.9 % Sodium Chloride Flush 3 ML SYRINGE IVFLUSH (07:47)
[2023-05-11 07:52] VITALS: BP 127/67; PULSE 71; RESP 20; TEMP 36.6; O2SAT 96
--- NOTE | 2023-05-11 08:00 | PC.NURSE ---
Assumed care of patient at this time.
[2023-05-11 08:08] LABS: Glucose, Whole Blood 142 mg/dL (60-115)
[2023-05-11 08:26] VITALS: BMI 33.1
--- NOTE | 2023-05-11 08:37 | PHA.MEDREC ---
Pharmacy Consult ? Medication Reconciliation Pharmacy has completed the medication reconciliation.
--- NOTE | 2023-05-11 09:17 | PM.CNCAR ---
History of Present Illness History of Present Illness Date of Service: 05/11/23 Requesting physician: Alexander Tejeda Chief complaint: NSTEMI Narrative: [age] year female with history of diabetes, hypertension hyperlipidemia presenting for fall and dizziness episode this morning. She is due for NSTEMI. EKG showing inferior T-wave changes as well as lateral changes. She is denying any chest discomfort. She was given heparin and aspirin and was currently on heparin drip. No bleeding issues in the past. Denying any chest discomfort shortness of breath in the past 2. 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 Vitamin D deficiency Family History Family History Mother HTN (hypertension) Diabetes Brother Lung cancer Sister Cancer, colon Daughter Uterine cancer Father Prostate cancer Surgical History Surgical History History of breast biopsy History of esophagogastroduodenoscopy (EGD) History of laparoscopic cholecystectomy History of tubal ligation Hx of colonoscopy Hx of right cataract extraction Social History Social History Household Members: Significant Other Household Members Other:: 2 Housing: House Are you a primary career coach to a significant other at home: No Do you presently have visiting nurse or other home services: Yes ([employer]) Alcohol intake: never Patient Tobacco Use Status: Former Tobacco user Quit Date: quit years ago Tobacco use type: Cigarette e-Cigarette/Vaping Use: Former Use Second Hand Smoke Exposure: No Use of substances other than those prescribed or required for medical reasons: No Currently Displaying Signs/Symptoms of Drug Intoxication Withdrawal: No Any prior treatment program specific to substance use: No Have you been hit, kicked, punched, or otherwise hurt by someone within the past year? If so, by whom?: No Do you feel safe in your current relationship?: Yes Is there a partner from a previous relationship who is making you feel unsafe now?: No Are you made to feel afraid or neglected: No Advance Directives: No Advance Directives Information Provided: No Do you have thoughts of harming others: None Do you have a plan to hurt others: No Plan Recently lost weight without trying: No How much weight loss: Not applicable Eating poorly because of decreased appetite: No Nutrition screen score: 0 Nutrition Risks: No Nutritional Risk Patient : No service: No Current occupational status: retired and disabled Cognitive needs: No Hearing needs: No Vision needs: Yes (glasses) Meds Allergies Allergy/AdvReac Type Severity Reaction Status Date / Time aspirin [Aspirin] Allergy Mild Abdominal Verified 04/10/23 13:25 Pain Penicillins Allergy Mild NAUSEA/STOMACH Verified 04/10/23 13:25 PAIN hydrochlorothiazide Allergy Unknown hypokalemia Verified 04/10/23 13:25 lisinopril Allergy Unknown ? swelling Verified 04/10/23 13:25 [id number]-PXM-HbM Reductase Allergy Unknown Muscle Verified 04/10/23 13:25 Inhibitor cramps ibuprofen [From Motrin] AdvReac Unknown Abdominal Verified 04/10/23 13:25 Pain Active Medications: Current Medications Acetaminophen (Acetaminophen 325 Mg Tablet) 650 mg PO Q6H PRN PRN Reason: Pain, Mild (Pain Scale 1-3) Dextrose (Dextrose 50 % 25 Gm/50 Ml Syringe) 25 gm IVPUSH Q15M PRN; Protocol PRN Reason: per Hypoglycemia Standing Ord. Glucose (Glucose Gel 15 Gm Gel..Gram.) 15 gm PO Q15M PRN; Protocol PRN Reason: per Hypoglycemia Standing Ord. Heparin Sodium (Porcine) (Heparin Sodium,Porcine 5,000 Unit/Ml Vial) 3,300 unit IVPUSH PROTOCOL BOLUS PRN; Protocol PRN Reason: 40 unit/kg - Heparin Protocol Heparin Sodium (Porcine) (Heparin Sodium,Porcine 5,000 Unit/Ml Vial) 6,500 unit 80 unit/kg (6500 unit) IVPUSH PROTOCOL BOLUS PRN; Protocol PRN Reason: 80 unit/kg - Heparin Protocol Heparin Sodium/Sodium Chloride (Heparin Sodium,Porcine/1/2ns) 25,000 unit in 250 mls @ 0 mls/hr IVCONT .Q0M [facility]; Protocol Last Admin: 05/11/23 05:00 Dose: 12 units/kg/hr, 9.77 mls/hr Insulin Human Lispro (Insulin Lispro 100 Unit/Ml 3 Ml Vial) 0 unit SUBCUT QIDACHS [facility]; Protocol Last Admin: 05/11/23 07:47 Dose: Not Given Melatonin (Melatonin 3 Mg Tablet) 6 mg PO BEDTIME PRN PRN Reason: Insomnia Ondansetron HCl (Ondansetron Hcl 4 Mg/2 Ml Vial) 4 mg IVPUSH Q8H PRN PRN Reason: Nausea and Vomiting Sodium Chloride (0.9 % Sodium Chloride Flush 3 Ml Syringe) 3 ml IVFLUSH QSHIFT [facility] Last Admin: 05/11/23 07:47 Dose: 3 ml Home Medications Medication Instructions Recorded Confirmed Last Taken Type multivitamin 1 tab PO DAILY 12/01/22 05/11/23 Unknown History insulin glargine 100 unit/mL (3 18 unit subcut BEDTIME 01/22/23 05/11/23 Unknown History mL) subcutaneous pen (Lantus Solostar U-100 Insulin) amlodipine 5 mg tablet 5 mg PO DAILY 05/11/23 05/11/23 Unknown History atorvastatin 40 mg tablet 40 mg PO BEDTIME 05/11/23 05/11/23 Unknown History Physical Exam Vital Signs: Vital Signs: Last Vital Signs Temp 97.9 F 05/11/23 07:52 Pulse 71 05/11/23 07:52 Resp 20 05/11/23 07:52 BP 127/67 05/11/23 07:52 Pulse Ox 96 05/11/23 07:52 O2 Del Method Room Air 05/11/23 07:52 BMI result Body Mass Index 33.1 GENERAL APPEARANCE: in no acute distress, pleasant. NECK: no carotid bruit, no jugular venous distention. SKIN: no suspicious lesions, warm and dry. HEART: no murmurs, regular rate and rhythm. LUNGS: clear to auscultation bilaterally. ABDOMEN: soft, nontender. EXTREMITIES: no edema. PERIPHERAL PULSES: equal. NEUROLOGIC: No gross deficits, AAO X 3 Objective Labs and Meds 05/11/23 05:01 05/11/23 05:00 Lab results: Laboratory Results - last 24 hr 05/10/23 05/11/23 05/11/23 23:45 00:40 00:40 WBC 9.4 RBC 3.75 L Hgb 11.1 L Hct 34.2 L MCV 91.2 MCH 29.6 MCHC 32.5 RDW 14.5 Plt Count 277 MPV 10.6 Immature Gran % (Auto) Neut % (Auto) Lymph % (Auto) [place] % (Auto) Eos % (Auto) Baso % (Auto) Lymph # (Auto) [place] # (Auto) Eos # (Auto) Baso # (Auto) Abs Immat Gran (auto) Absolute Neuts (auto) Absolute Nucleated RBC 0.000 Nucleated RBC % (auto) 0.0 PT INR APTT Sodium 139 Potassium 4.1 Chloride 104 Carbon Dioxide 23 Anion Gap 16 BUN 10 Creatinine 0.72 Estim Creat Clear Calc 66.4 Estimated GFR > 60 POC Glucose 148 H Random Glucose 185 H Calcium 9.5 Total Bilirubin 0.3 AST 19 ALT 19 Alkaline Phosphatase 93 Troponin I High Sens Total Protein 6.8 Albumin 3.8 05/11/23 05/11/23 05/11/23 00:40 03:09 04:05 WBC RBC Hgb Hct MCV MCH MCHC RDW Plt Count MPV Immature Gran % (Auto) Neut % (Auto) Lymph % (Auto) [place] % (Auto) Eos % (Auto) Baso % (Auto) Lymph # (Auto) [place] # (Auto) Eos # (Auto) Baso # (Auto) Abs Immat Gran (auto) Absolute Neuts (auto) Absolute Nucleated RBC Nucleated RBC % (auto) PT 11.4 INR 0.9 APTT 27.2 Sodium Potassium Chloride Carbon Dioxide Anion Gap BUN Creatinine Estim Creat Clear Calc Estimated GFR POC Glucose Random Glucose Calcium Total Bilirubin AST ALT Alkaline Phosphatase Troponin I High Sens 46.5 H 387.9 H* D Total Protein Albumin 05/11/23 05/11/23 05/11/23 05:00 05:01 05:01 WBC 9.3 RBC 3.62 L Hgb 10.7 L Hct 33.4 L MCV 92.3 MCH 29.6 MCHC 32.0 RDW 14.5 Plt Count 279 MPV 11.0 Immature Gran % (Auto) 0.4 Neut % (Auto) 65.7 Lymph % (Auto) 20.6 [place] % (Auto) 10.0 Eos % (Auto) 2.4 Baso % (Auto) 0.9 Lymph # (Auto) 1.9 [place] # (Auto) 0.9 Eos # (Auto) 0.2 Baso # (Auto) 0.1 Abs Immat Gran (auto) 0.04 H Absolute Neuts (auto) 6.1 Absolute Nucleated RBC 0.000 Nucleated RBC % (auto) 0.0 PT INR APTT Sodium 138 Potassium 4.2 Chloride 104 Carbon Dioxide 21 L Anion Gap 17 BUN 10 Creatinine 0.69 Estim Creat Clear Calc 69.6 Estimated GFR > 60 POC Glucose Random Glucose 163 H Calcium 9.3 Total Bilirubin AST ALT Alkaline Phosphatase Troponin I High Sens 797.4 H* D Total Protein Albumin 05/11/23 05/11/23 07:31 08:04 WBC RBC Hgb Hct MCV MCH MCHC RDW Plt Count MPV Immature Gran % (Auto) Neut % (Auto) Lymph % (Auto) [place] % (Auto) Eos % (Auto) Baso % (Auto) Lymph # (Auto) [place] # (Auto) Eos # (Auto) Baso # (Auto) Abs Immat Gran (auto) Absolute Neuts (auto) Absolute Nucleated RBC Nucleated RBC % (auto) PT INR APTT Sodium Potassium Chloride Carbon Dioxide Anion Gap BUN Creatinine Estim Creat Clear Calc Estimated GFR POC Glucose 148 H 142 H Random Glucose Calcium Total Bilirubin AST ALT Alkaline Phosphatase Troponin I High Sens Total Protein Albumin Imaging Radiologist's impression: Impressions Ribs X-Ray 05/11/23 00:19 IMPRESSION: Unremarkable examination. Assessment and Plan (1) NSTEMI (non-ST elevated myocardial infarction): Status: Acute Plan 73-year-old female with is factors for coronary artery disease presenting with fall and dizziness and ruling for NSTEMI. She has dynamic ECG changes. Will check echocardiogram. We discussed about doing angiography and she is agreeable. We will transfer to [facility] for potential cardiac catheterization and PCI today. Continue aspirin and heparin drip for now. Further recommendation after cardiac catheterization. Time Spent With Patient Time: Total time managing care of this patient today ____ minutes. Procedures Date of Service Date of Service: 05/11/23
--- NOTE | 2023-05-11 09:53 | P.DS_ITS ---
DS: Providers Provider Date of Service: 05/11/23 Date of admission: 05/11/23 04:17 Date of discharge: 05/11/23 Primary care physician: Junior Zayas MD Consults: 05/11/23 04:35 Consult to Cardiology Routine Consulting Provider: [facility] [place] Cardiovascular Services Reason for consultation: NSTEMI DS: Diagnosis Discharge Diagnosis (1) NSTEMI (non-ST elevated myocardial infarction): Status: Acute DS: Summary Hospital Course Hospital Course: 73-year-old female with pertinent history of insulin-dependent diabetes mellitus, essential hypertension, gastroesophageal reflux disease, mixed hyperlipidemia who presents to the emergency department after a fall.? Patient states that her phone was ringing and she got up to receive it.? She does not remember what happened and the next thing she knew she was lying on her back on the ground.? She thinks she got entangled in the phone cords.? No dizziness or lightheadedness prior to the fall.? No chest discomfort or palpitations or loss of consciousness prior to the fall.? Does endorse history of high blood pressure and diabetes mellitus.? Quit cigarette smoking 30 years ago.? Patient states no cardiac stents as far as she knows.? She denies fever, chills, palpitations, shortness of breath, abdominal pain, changes in urinary or bowel habits.? Endorses right-sided chest pain due to the fall. In the emergency department, troponin was found to be elevated and patient was initiated on IV heparin. Hospital Course Patient admitted to telemetry on heparin drip for she remained pain-free. Seen in consultation by Cardiology (see note) who felt patient best served by transfer to [facility] for Interventional Cardiology. At this point she is medically stable for transfer and plan will be initiated as per receiving team Time Spent with Patient Time attestation: Total time managing care of this patient today ____ minutes. Discharge coordination time: Greater than 30 minutes Quality: Safe Use of Opioids Does Pt have an Active Cancer Diagnosis on the Problem List?: No Quality: Stroke Does the patient have a stroke diagnosis?: No Physical Exam Vital Signs: Vital Signs: Last Vital Signs Temp 97.9 F 05/11/23 07:52 Pulse 71 05/11/23 07:52 Resp 20 05/11/23 07:52 BP 127/67 05/11/23 07:52 Pulse Ox 96 05/11/23 07:52 O2 Del Method Room Air 05/11/23 07:52 BMI result Body Mass Index 33.1 Const: Other: Awake alert no acute distress pain-free Resp: Other: Clear to auscultation bilaterally no rales rhonchi or wheezes Cardio: Other: No S4; positive S1-S2; no S3 murmurs rubs or gallops GI: Other: Soft nontender nondistended normoactive bowel sounds Neuro: Other: Cranial nerves 2-12 grossly intact as tested. Motor is 5/5 all extremities. Sensation is intact. Cognition appropriate. Gait not observed Extrem: Other: No edema bilaterally DS: Data Data Completed and Pending Labs on day of discharge: Laboratory Results - last 24 hr 05/10/23 05/11/23 05/11/23 23:45 00:40 00:40 WBC 9.4 RBC 3.75 L Hgb 11.1 L Hct 34.2 L MCV 91.2 MCH 29.6 MCHC 32.5 RDW 14.5 Plt Count 277 MPV 10.6 Immature Gran % (Auto) Neut % (Auto) Lymph % (Auto) [place] % (Auto) Eos % (Auto) Baso % (Auto) Lymph # (Auto) [place] # (Auto) Eos # (Auto) Baso # (Auto) Abs Immat Gran (auto) Absolute Neuts (auto) Absolute Nucleated RBC 0.000 Nucleated RBC % (auto) 0.0 PT INR APTT Sodium 139 Potassium 4.1 Chloride 104 Carbon Dioxide 23 Anion Gap 16 BUN 10 Creatinine 0.72 Estim Creat Clear Calc 66.4 Estimated GFR > 60 POC Glucose 148 H Random Glucose 185 H Calcium 9.5 Total Bilirubin 0.3 AST 19 ALT 19 Alkaline Phosphatase 93 Troponin I High Sens Total Protein 6.8 Albumin 3.8 05/11/23 05/11/23 05/11/23 00:40 03:09 04:05 WBC RBC Hgb Hct MCV MCH MCHC RDW Plt Count MPV Immature Gran % (Auto) Neut % (Auto) Lymph % (Auto) [place] % (Auto) Eos % (Auto) Baso % (Auto) Lymph # (Auto) [place] # (Auto) Eos # (Auto) Baso # (Auto) Abs Immat Gran (auto) Absolute Neuts (auto) Absolute Nucleated RBC Nucleated RBC % (auto) PT 11.4 INR 0.9 APTT 27.2 Sodium Potassium Chloride Carbon Dioxide Anion Gap BUN Creatinine Estim Creat Clear Calc Estimated GFR POC Glucose Random Glucose Calcium Total Bilirubin AST ALT Alkaline Phosphatase Troponin I High Sens 46.5 H 387.9 H* D Total Protein Albumin 05/11/23 05/11/23 05/11/23 05:00 05:01 05:01 WBC 9.3 RBC 3.62 L Hgb 10.7 L Hct 33.4 L MCV 92.3 MCH 29.6 MCHC 32.0 RDW 14.5 Plt Count 279 MPV 11.0 Immature Gran % (Auto) 0.4 Neut % (Auto) 65.7 Lymph % (Auto) 20.6 [place] % (Auto) 10.0 Eos % (Auto) 2.4 Baso % (Auto) 0.9 Lymph # (Auto) 1.9 [place] # (Auto) 0.9 Eos # (Auto) 0.2 Baso # (Auto) 0.1 Abs Immat Gran (auto) 0.04 H Absolute Neuts (auto) 6.1 Absolute Nucleated RBC 0.000 Nucleated RBC % (auto) 0.0 PT INR APTT Sodium 138 Potassium 4.2 Chloride 104 Carbon Dioxide 21 L Anion Gap 17 BUN 10 Creatinine 0.69 Estim Creat Clear Calc 69.6 Estimated GFR > 60 POC Glucose Random Glucose 163 H Calcium 9.3 Total Bilirubin AST ALT Alkaline Phosphatase Troponin I High Sens 797.4 H* D Total Protein Albumin 05/11/23 05/11/23 07:31 08:04 WBC RBC Hgb Hct MCV MCH MCHC RDW Plt Count MPV Immature Gran % (Auto) Neut % (Auto) Lymph % (Auto) [place] % (Auto) Eos % (Auto) Baso % (Auto) Lymph # (Auto) [place] # (Auto) Eos # (Auto) Baso # (Auto) Abs Immat Gran (auto) Absolute Neuts (auto) Absolute Nucleated RBC Nucleated RBC % (auto) PT INR APTT Sodium Potassium Chloride Carbon Dioxide Anion Gap BUN Creatinine Estim Creat Clear Calc Estimated GFR POC Glucose 148 H 142 H Random Glucose Calcium Total Bilirubin AST ALT Alkaline Phosphatase Troponin I High Sens Total Protein Albumin Discharge Plan Discharge Anticipated Discharge Date/Time: 05/11/23 09:50 Patient Disposition: Xfer Acute Care Hospital Discharge Diagnosis: NSTEMI Referrals: Marquez,Junior Galarza MD [Primary Care Provider] - 1 Week Discharge Medications: New heparin(porcine) in 0.45% NaCl 25,000 unit/250 mL Parenteral Solution 25,000 unit continuous IV infusion .Q0M Qty: 6000 0RF heparin (porcine) 5,000 unit/mL Solution 3,300 unit IVPUSH PROTOCOL BOLUS PRN (Reason: 40 Unit/Kg - Heparin Protocol) Qty: 10 0RF heparin (porcine) 5,000 unit/mL Solution 6,500 unit IVPUSH PROTOCOL BOLUS PRN (Reason: 80 Unit/Kg - Heparin Protocol) Qty: 10 0RF Continued fluticasone propion-salmeterol [Wixela Inhub] 250-50 mcg/dose blister with device 1 ea PO BID Qty: 60 6RF ezetimibe [Zetia] 10 mg tablet 10 mg PO DAILY Qty: 90 0RF gabapentin 300 mg capsule 300 mg PO BEDTIME Qty: 30 6RF cholecalciferol (vitamin D3) 50 mcg (2,000 unit) capsule 50 mcg PO DAILY 90 Days Qty: 90 3RF tolterodine 2 mg capsule,extended release 24hr 4 mg PO DAILY 90 Days Qty: 180 1RF metoprolol tartrate 100 mg tablet 100 mg PO BID Qty: 180 3RF (DME) lancets 33 gauge [facility] See Rx Instructions .ROUTE .MEDSUPPLY Qty: 100 11RF Rx Instructions: As directed twice a day (DME) adult pull ups LARGE See Rx Instructions .Route .MEDSUPPLY Qty: 180 0RF Rx Instructions: As directed albuterol sulfate 90 mcg/actuation HFA aerosol inhaler 2 puff inhalation Q4-6H PRN (Reason: shortness of breath or wheezing) Qty: 6.7 0RF atorvastatin 40 mg tablet 40 mg PO BEDTIME amlodipine 5 mg tablet 5 mg PO DAILY hydrocodone-homatropine 5-1.5 mg/5 mL (5 mL) syrup 5 ml PO Q4-6H PRN (Reason: cough) Qty: 60 0RF Rx Instructions: Partial Fill upon patient request. (DME) [employer]tera Nebulizer System [facility] [place] See Rx Instructions .ROUTE .MEDSUPPLY Qty: 1 0RF Rx Instructions: As directed updraft Q 4 hours prn with albuterol albuterol sulfate 2.5 mg /3 mL (0.083 %) solution for nebulization 2.5 mg continuous nebulization Q4-6H PRN (Reason: bronchospasm) Qty: 180 3RF fexofenadine [Alison Allergy] 180 mg tablet 180 mg PO DAILY Qty: 30 3RF (DME) blood pressure monitor [Blood Pressure Kit] Kit See Rx Instructions .ROUTE .MEDSUPPLY Qty: 1 0RF Rx Instructions: As directed losartan 50 mg tablet 50 mg PO DAILY Qty: 30 2RF dulaglutide 3 mg/0.5 mL pen injector 3 mg subcut QWEEK Qty: 2 3RF (DME) OneTouch Verio test strips Strip See Rx Instructions .ROUTE .MEDSUPPLY Qty: 50 11RF Rx Instructions: As directed twice a day, fasting am and at bedtime metformin 500 mg tablet 1,000 mg PO BID 30 Days Qty: 120 11RF multivitamin Tablet 1 tab PO DAILY pantoprazole 40 mg tablet,delayed release (DR/EC) 40 mg PO BID Qty: 180 2RF insulin glargine [Lantus Solostar U-100 Insulin] 100 unit/mL (3 mL) insulin pen 18 unit subcut BEDTIME docusate sodium 100 mg capsule 100 mg PO BEDTIME Qty: 90 3RF Discharge Orders: Discharge Order (Routine); Ordered 05/11/23 Ordered By: Alexander Tejeda Diet: Advance to usual diet Activity on Discharge: As tolerated Stand Alone Forms: Patient Portal Discharge page Care Plan Goals: Transfer to [facility] for Interventional Cardiology Health Concerns: Continue heparin drip as ordered Plan of Treatment: Continue all meds as outlined and transfer sheet; will need lispro correctional scale as per [facility] Assessment: See discharge summary
--- NOTE | 2023-05-11 10:45 | PC.NURSE ---
[facility] Patient going into room 16 on M5. Report #[id number]
== END 2023-05-11 10:20 | disposition short-term general hospital (02) | DRG 282 ==
LOC: HO.ED 05-11 00:23 → HO.EDOVER 05-11 04:52 → HO.IMC 05-11 05:17
PROVIDERS: Admitting Provider Student in an Organized Health Care Education/Training Program; Emergency Provider Internal Medicine; PCP Internal Medicine; Visit Provider Hospitalist
DX: I21.4 Non-ST elevation (NSTEMI) myocardial infarction (principal); I10 Essential (primary) hypertension; K21.9 Gastro-esophageal reflux disease without esophagitis; E11.65 Type 2 diabetes mellitus with hyperglycemia; E78.2 Mixed hyperlipidemia; I25.10 Atherosclerotic heart disease of native coronary artery without angina pectoris; E11.42 Type 2 diabetes mellitus with diabetic polyneuropathy; Z87.891 Personal history of nicotine dependence; Z79.51 Long term (current) use of inhaled steroids; Z79.4 Long term (current) use of insulin; Z79.899 Other long term (current) drug therapy
CPT/HCPCS: 36415; 71101; 80048; 80053; 82947; 84484; 85025; 85027; 85610; 85730; 93005; 93308; 99285; J1643; J2270; J2405; Q9957

== ENCOUNTER → 2023-05-11 00:23 | Outpatient (BNV) | payer OTHER, SELFPAY | PROVIDERS: Emergency Provider Internal Medicine; PCP Internal Medicine; Visit Provider Student in an Organized Health Care Education/Training Program | DX: I21.4 Non-ST elevation (NSTEMI) myocardial infarction (principal) | CPT/HCPCS: 99236; 99499 ==

== ENCOUNTER → 2023-05-11 04:17 | Outpatient (BNV) | payer OTHER, SELFPAY | PROVIDERS: Admitting Provider Student in an Organized Health Care Education/Training Program; Emergency Provider Internal Medicine; PCP Internal Medicine; Visit Provider Internal Medicine Cardiovascular Disease | DX: I21.4 Non-ST elevation (NSTEMI) myocardial infarction (principal) | CPT/HCPCS: 93308; 99223 ==

== ENCOUNTER → 2023-05-11 23:59 | Outpatient (BNV) | payer OTHER, SELFPAY | PROVIDERS: PCP Internal Medicine; Visit Provider Internal Medicine Cardiovascular Disease | DX: I21.4 Non-ST elevation (NSTEMI) myocardial infarction (principal) | CPT/HCPCS: 92928; 93458; 99152 ==

== ENCOUNTER 2023-05-18 09:45 | Outpatient (AMB) | payer OTHER, SELFPAY ==
[2023-05-18 09:50] VITALS: BP 128/76; PULSE 84; O2SAT 99; BMI 32.4
--- NOTE | 2023-05-18 09:50 | A.OFFPC_ITS ---
Vital Signs 05/18/23 09:50 Height 5 ft 2 in Weight 177 lb BMI 32.4 BP 128/76 Blood Pressure Location Lt brachial Position Sitting Pulse 84 Pulse Source Pulse Oximeter Temp Source Skin Pulse Oximetry (%) 99 Oxygen Delivery Method Room Air Intake Visit Reasons: DM Business Continuity Analyst Required: No Allergies aspirin [Aspirin] Allergy (Mild, Verified 05/18/23 09:50) Abdominal Pain Penicillins Allergy (Mild, Verified 05/18/23 09:50) NAUSEA/STOMACH PAIN hydrochlorothiazide Allergy (Unknown, Verified 05/18/23 09:50) hypokalemia lisinopril Allergy (Unknown, Verified 05/18/23 09:50) ? swelling Irjrlue-DUB-OpG Reductase Inhibitor Allergy (Unknown, Verified 05/18/23 09:50) Muscle cramps ibuprofen [From Motrin] Adverse Reaction (Unknown, Verified 05/18/23 09:50) Abdominal Pain Medication List - Last Reconciled 05/18/23 by Junior Zayas MD [adult pull ups As directed] albuterol sulfate 90 mcg/actuation 2 puffs inhalation Q4-6H PRN albuterol sulfate 2.5 mg (3 mL) continuous nebulization Q4-6H PRN amlodipine 5 mg PO DAILY aspirin 81 mg PO DAILY atorvastatin 40 mg PO BEDTIME blood pressure monitor (Blood Pressure Kit) As directed blood sugar diagnostic (OneTouch Verio test strips) As directed twice a day, fasting am and at bedtime cholecalciferol (vitamin D3) 50 mcg PO DAILY 90 days docusate sodium 100 mg PO BEDTIME dulaglutide 3 mg (0.5 mL) subcut QWEEK ezetimibe (Zetia) 10 mg PO DAILY fexofenadine (Alison Allergy) 180 mg PO DAILY fluticasone propion-salmeterol 250-50 mcg/dose (Wixela Inhub) 1 ea PO BID gabapentin 300 mg PO BEDTIME heparin (porcine) 3,300 units (0.66 mL) IVPUSH PROTOCOL BOLUS PRN heparin (porcine) 6,500 units (1.3 mL) IVPUSH PROTOCOL BOLUS PRN heparin(porcine) in 0.45% NaCl 25,000 unit/250 mL 25,000 units (250 mL) continuous IV infusion .Q0M hydrocodone-homatropine 5-1.5 mg/5 mL (5 mL) 5 mL PO Q4-6H PRN insulin glargine (Lantus Solostar U-100 Insulin) 18 units subcut BEDTIME lancets As directed twice a day losartan 50 mg PO DAILY metformin 1,000 mg (2 x 500 mg) PO BID 30 days metoprolol tartrate 100 mg PO BID multivitamin 1 tab PO DAILY nebulizers (Altera Nebulizer System) As directed updraft Q 4 hours prn with albuterol pantoprazole 40 mg PO BID ticagrelor (Brilinta) 90 mg PO BID tolterodine ER 4 mg (2 x 2 mg) PO DAILY 90 days Tobacco use date assessed: 05/18/23 Fall risk assessment: No Falls in past year Last assessed Fall Risk: 05/18/23 Dental Screening Dental Screen Date: 05/18/23 Did you have a dental visit in the last 12 months?: No Did you have a dental problem in the last 6 months where you did not have access to dental care?: No HPI DM HPI Details 73-year-old obese female with controlled diabetes mellitus hypercholesterolemia coronary artery disease hypertension GERD last seen in April 2023. Patient's colonoscopy is 2017 with tubular adenoma. Mammogram is due for next month. Bone density is up-to-date. Patient is here for follow-up. Review of the notes in 05/12/2023 patient went for cardiac catheterization patient ruled in for non ST elevation myocardial infarction echocardiogram showing inferolateral hypokinesis with preserved left ventricular function severe OM 1 stenosis small-sized vessel severe distal oscar was stenosis small- sized vessel distal LAD severe stenosis severe proximal LAD stenosis patient had drug-eluting stent to the proximal LAD with 3 mm x 18 mm drug-eluting stent aspirin, ticagrelor 90 mg twice a day for 1 year aggressive secondary risk modification. Patient complains of headaches and dizziness patient did have a fall the day before admission to the hospital patient was trying to reach out for the phone early in the morning from just being awakened and fell. Complains of right upper back pain noted a hematoma there on the back. X-ray was done in the hospital of the chest ribs negative patient is here for follow-up HPI Comments History of Present Illness Details 73-year-old obese female with controlled diabetes mellitus hypercholesterolemia coronary artery disease hypertension GERD last seen in April 2023. Patient's colonoscopy is 2017 with tubular adenoma. Mammogram is due for next month. Bone density is up-to-date. Patient is here for follow-up. Review of the notes in 05/12/2023 patient went for cardiac catheterization patient ruled in for non ST elevation myocardial infarction echocardiogram showing inferolateral hypokinesis with preserved left ventricular function severe OM 1 stenosis small-sized vessel severe distal oscar was stenosis small- sized vessel distal LAD severe stenosis severe proximal LAD stenosis patient had drug-eluting stent to the proximal LAD with 3 mm x 18 mm drug-eluting stent aspirin, ticagrelor 90 mg twice a day for 1 year aggressive secondary risk modification. PAtient states day before woke up on the floor and ? how fall happened. state woke up phone rang and got up and fell. complains of R upper back pain where a bruise is noted xray rib done - no fracture. 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 Vitamin D deficiency Surgical History History of breast biopsy History of esophagogastroduodenoscopy (EGD) History of laparoscopic cholecystectomy History of tubal ligation Hx of colonoscopy Hx of right cataract extraction Family History Mother HTN (hypertension) Diabetes Brother Lung cancer Sister Cancer, colon Daughter Uterine cancer Father Prostate cancer Social History Household Members: Significant Other Household Members Other:: 2 Housing: House Are you a primary patient care to a significant other at home: No 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 How often do you have a drink containing alcohol?: Never 3. How often do you have six or more drinks on one occasion?: Never Total Score: 0 QUYNH-7 AMB Questionnaire QUYNH-7 Date QUYNH - 7 assessed: 09/19/22 Source: Developed by Drs. Jhon Cedeño, Cara Park, Isaias Michael and colleagues, with an educational joey from [employer]. Physical exam (Primary Care) Vital Signs: Last Vital Signs Pulse 84 05/18/23 09:50 BP 128/76 05/18/23 09:50 Pulse Ox 99 05/18/23 09:50 Oxygen Delivery Method Room Air 05/18/23 09:50 BMI result Body Mass Index 32.4 Tobacco/Smoking Status: Tobacco use Status Tobacco use date assessed 05/18/23 05/18/23 09:51 Patient Tobacco Use Status Former Tobacco user 05/18/23 09:51 Tobacco use type Cigarette 05/18/23 09:51 e-Cigarette/Vaping Use Former Use 05/18/23 09:51 Thrive Assessment: Date of Thrive Assessment Date Thrive assessed 05/11/23 05/18/23 09:51 Assessment and Plan Assessment & Plan (1) NSTEMI (non-ST elevated myocardial infarction): Comment: May 2023 distal LAD drug-eluting stent Code(s): I21.4 - Non-ST elevation (NSTEMI) myocardial infarction Plan: Control the cholesterol, weight, blood pressure, diabetes. Patient has been placed on brilinta 90 mg BID x 12 months (2) Coronary artery disease: Comment: echo normal LV 60-65% June 2019 Code(s): I25.10 - Atherosclerotic heart disease of [place] coronary artery without angina pectoris Qualifiers: Coronary Disease-Associated Artery/Lesion type: [place] artery [place] vs. transplanted heart: [place] heart Associated angina: without angina Qualified Code(s): I25.10 - Atherosclerotic heart disease of [place] coronary artery without angina pectoris Plan: Control the cholesterol, weight, blood pressure, diabetes continue with aspirin (3) Hypercholesterolemia: Comment: Patient cannot tolerate statins Code(s): E78.00 - Pure hypercholesterolemia, unspecified Plan: Avoid fried foods, chicken skin, eggs, butter margarine, pastries and meat. Be it pork or beef they have a lot of cholesterol LDL goal of less than 70 patient is taking Zetia 10 mg once a day atorvastatin 40 mg (4) Type 2 diabetes mellitus with hyperglycemia: Comment: / Charlie Code(s): E11.65 - Type 2 diabetes mellitus with hyperglycemia Plan: Decrease the amount of carbohydrate intake, pasta, bread, rice and potatoes are all sugar and that is aside from all the sweet stuff, remember that fruits are good but they are Sweet also. Hemoglobin A1c goal of less than 7.0 patient is on Trulicity 3 mg once a week Lantus 18 units once a day metformin a 1000 mg twice a day (5) GERD (gastroesophageal reflux disease): Code(s): K21.9 - Gastro-esophageal reflux disease without esophagitis Qualifiers: Esophagitis presence: without esophagitis Qualified Code(s): K21.9 - Gastro-esophageal reflux disease without esophagitis Plan: Avoid the foods that causes that usually spicy foods, tomato products, juices, coffee, soda and foods that your sensitive to. After eating do not lie down, allow 3-4 hours before in lie down. And keep the head of bed above 30 degrees to avoid the acid from going up. On pantoprazole 40 mg twice a day (6) Hypertension: Code(s): I10 - Essential (primary) hypertension Plan: Continue with blood pressure medication. Decrease salt intake and exercise patient is taking metoprolol 100 mg twice a day losartan 50 mg once a day amlodipine 5 mg once a day patient's list of medication is different from my list and wanted to find out about losartan. She will get back with (7) Headache: Code(s): R51.9 - Headache, unspecified (8) Fall: Code(s): W19.XXXA - Unspecified fall, initial encounter Orders: Orders CT head/brain wo IV con Today R51.9 - Headache, unspecified Referrals Cardiology Referral I21.4 - Non-ST elevation (NSTEMI) myocardial infarction Medications: New atorvastatin 40 mg PO BEDTIME 90 tabs 1RF E78.00 - Pure hypercholesterolemia, unspecified, I21.4 - Non-ST elevation (NSTEMI) myocardial infarction ticagrelor (Brilinta) 90 mg PO BID 60 tabs 0RF Refilled blood sugar diagnostic (OneTouch Verio test strips) As directed twice a day, fasting am and at bedtime 50 ea 11RF E11.9 - Type 2 diabetes mellitus without complications Coding Level of Care Code Est Pt Level 4 (77808) Diagnoses NSTEMI (non-ST elevated myocardial infarction) I21.4 Coronary artery disease involving [place] coronary artery of [place] heart without angina pectoris I25.10 Coronary Disease-Associated Artery/Lesion type: [place] artery [place] vs. transplanted heart: [place] heart Associated angina: without angina Hypercholesterolemia E78.00 Type 2 diabetes mellitus with hyperglycemia E11.65 Gastroesophageal reflux disease without esophagitis K21.9 Esophagitis presence: without esophagitis Hypertension I10 Headache R51.9 Fall W19.XXXA
== END 2023-05-18 11:04 | disposition home or self-care (01) ==
PROVIDERS: Visit Provider Internal Medicine
DX: E11.65 Type 2 diabetes mellitus with hyperglycemia (principal); I21.4 Non-ST elevation (NSTEMI) myocardial infarction; K21.9 Gastro-esophageal reflux disease without esophagitis; I10 Essential (primary) hypertension; I25.10 Atherosclerotic heart disease of native coronary artery without angina pectoris; E78.00 Pure hypercholesterolemia, unspecified; R51.9 Headache, unspecified; W19.XXXA Unspecified fall, initial encounter
CPT/HCPCS: 99214

== ENCOUNTER 2023-05-30 14:13 | Outpatient (AMB) | payer OTHER, SELFPAY ==
[2023-05-30 14:16] VITALS: BP 122/76; PULSE 94; BMI 31.3
--- NOTE | 2023-05-30 14:16 | MHC.OFFVIS ---
Intake Vital Signs 05/30/23 14:16 Height 5 ft 2 in Weight 171 lb BMI 31.3 BP 122/76 Blood Pressure Location Lt brachial Position Sitting Pulse 94 Intake Visit Reasons: AFTER CARDIAC CATH Intake Note: Follow-up post cardiac cath c/o fatigue and sob Automotive Sales Specialist Required: Yes Automotive Sales Specialist Name: daughter signed Timber Girdler: Timber Girdler Present Accompanied by: Daughter Allergies aspirin [Aspirin] Allergy (Mild, Verified 05/18/23 09:50) Abdominal Pain Penicillins Allergy (Mild, Verified 05/18/23 09:50) NAUSEA/STOMACH PAIN hydrochlorothiazide Allergy (Unknown, Verified 05/18/23 09:50) hypokalemia lisinopril Allergy (Unknown, Verified 05/18/23 09:50) ? swelling [id number]-RhH Reductase Inhibitor Allergy (Unknown, Verified 05/18/23 09:50) Muscle cramps ibuprofen [From Motrin] Adverse Reaction (Unknown, Verified 05/18/23 09:50) Abdominal Pain Medication List - Last Reconciled 05/30/23 by Brock Bales MD [adult pull ups As directed] albuterol sulfate 90 mcg/actuation 2 puffs inhalation Q4-6H PRN albuterol sulfate 2.5 mg (3 mL) continuous nebulization Q4-6H PRN amlodipine 5 mg PO DAILY aspirin 81 mg PO DAILY atorvastatin 40 mg PO BEDTIME blood pressure monitor (Blood Pressure Kit) As directed blood sugar diagnostic (OneTouch Verio test strips) As directed twice a day, fasting am and at bedtime cholecalciferol (vitamin D3) 50 mcg PO DAILY 90 days docusate sodium 100 mg PO BEDTIME dulaglutide 3 mg (0.5 mL) subcut QWEEK ezetimibe (Zetia) 10 mg PO DAILY fexofenadine (Alison Allergy) 180 mg PO DAILY fluticasone propion-salmeterol 250-50 mcg/dose (Wixela Inhub) 1 ea PO BID gabapentin 300 mg PO BEDTIME insulin glargine (Lantus Solostar U-100 Insulin) 18 units subcut BEDTIME lancets As directed twice a day losartan 50 mg PO DAILY metformin 1,000 mg (2 x 500 mg) PO BID 30 days metoprolol tartrate 100 mg PO BID multivitamin 1 tab PO DAILY nebulizers (Shopeara Nebulizer System) As directed updraft Q 4 hours prn with albuterol pantoprazole 40 mg PO BID ticagrelor (Brilinta) 90 mg PO BID tolterodine ER 4 mg (2 x 2 mg) PO DAILY 90 days HPI HPI Comments History of Present Illness Details 73-year-old female who is here for follow-up. She was seen in the hospital when she presented with a fall and ruled in for NSTEMI. She had ECG changes and echocardiography showed some inferolateral wall motion abnormality also. After discussion she was taken for cardiac catheterization at [facility]. This revealed severe LAD disease proximally and distally. The distal vessel was small in size and we decided not to do anything to that but she was treated with a drug-eluting stent to the proximal LAD. She also had a small OM branch which was subtotally occluded. She was treated with aspirin Brilinta and discharged home. She is not returning for follow-up. She has some fatigue and off and on feels some dyspnea. She has been experiencing orthopnea for long time. She is saying she sleeps up to 2-3 pillows per day. She has chronic mild edema in the lower extremities but has been taking gabapentin as well as amlodipine for some time. She has statin intolerance and is currently taking as it to my 10 mg daily. Last lipid panel was in December 2022 when LDL cholesterol is 96. [facility] Medical History (Updated 05/30/23 @ 14:41 by Brock Bales MD) NSTEMI (non-ST elevated myocardial infarction) Fall HLD (hyperlipidemia) Colon cancer screening Pleural effusion, right Nocturia more than twice per night Glaucoma Cataract of left eye Renal cyst Preop exam for internal medicine On beta kamryn at home Vitamin D deficiency Osteoporosis Restless leg syndrome Type 2 diabetes mellitus with diabetic polyneuropathy Tubal ligation evaluation Adrenal adenoma Pulmonary nodule Fracture of toe of left foot Positive MAGGIE (antinuclear antibody) Osteoarthritis of both knees Osteopenia Ulnar neuropathy Asthma GERD (gastroesophageal reflux disease) Obesity (BMI 30-39.9) Coronary artery disease Hypercholesterolemia Surgical History Hx of right cataract extraction History of esophagogastroduodenoscopy (EGD) Hx of colonoscopy History of breast biopsy History of tubal ligation History of laparoscopic cholecystectomy Family History Mother HTN (hypertension) Diabetes Brother Lung cancer Sister Cancer, colon Daughter Uterine cancer Father Prostate cancer Social History Household Members: Significant Other Household Members Other:: 2 Housing: House Are you a primary medicare sales representative to a significant other at home: No 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) Alcohol intake: never Patient Tobacco Use Status: Former Tobacco user Quit Date: quit years ago Tobacco use type: Cigarette e-Cigarette/Vaping Use: Former Use Second Hand Smoke Exposure: No service: No Current occupational status: retired and disabled Cognitive needs: No Hearing needs: No Vision needs: Yes (glasses) Review of Systems Const Denies chills, Denies fatigue, Denies fever(s), Denies frequent falls, Denies weakness, Denies weight gain and Denies weight loss ENT Denies dizziness Card Denies chest pain, Denies leg edema, Denies lightheadedness, Denies palpitations, Denies dyspnea, Denies dyspnea on exertion, Denies orthopnea and Denies other (loss of consciousness) Resp Denies cough, Denies dyspnea and Denies dyspnea on exertion GI Denies hematochezia and Denies change in stool character Musc Denies abnormal gait, Denies muscle weakness, Denies numbness, Denies radiating pain into limb and Denies tingling Neuro Denies abnormal gait, Denies dizziness, Denies frequent falls, Denies numbness, Denies tingling and Denies weakness Endo Denies fatigue and Denies palpitations Physical Exam Vital Signs: Last Vital Signs Pulse 94 05/30/23 14:16 BP 122/76 05/30/23 14:16 BMI result Body Mass Index 31.3 GENERAL APPEARANCE: in no acute distress, pleasant. NECK: no carotid bruit, no significant JVD but positive hepatic jugular reflux. SKIN: no suspicious lesions, warm and dry. HEART: no murmurs, regular rate and rhythm. LUNGS: clear to auscultation bilaterally. ABDOMEN: soft, nontender. EXTREMITIES: Mild ankle edema. PERIPHERAL PULSES: equal. NEUROLOGIC: No gross deficits, AAO X 3 Assessment & Plan Assessment & Plan (1) NSTEMI (non-ST elevated myocardial infarction): Comment: May 2023 distal LAD drug-eluting stent Code(s): I21.4 - Non-ST elevation (NSTEMI) myocardial infarction (2) Orthopnea: Code(s): R06.01 - Orthopnea Plan [age] year female who is here for follow-up. She recently had NSTEMI and was taken for cardiac catheterization where she was treated with stent in the proximal LAD. She has done well since then. She has been taking medications regularly. She has fatigue and dyspnea. I think she will benefit from cardiac rehabilitation. We are referring her for that. She has chronic orthopnea. I am adding low-dose Lasix to see if that helps her symptoms. She will need fasting lipid panel in few weeks. If LDL cholesterol is not at target of less than 70, then would consider PCSK9 inhibitors. She will see us back in 3 months. Thank you for allowing me to participate in the care of your patient. Please feel free to contact me if you have any questions. Orders: Orders Cardiac Rehab Today I21.4 - Non-ST elevation (NSTEMI) myocardial infarction Lipid Panel Today R06.01 - Orthopnea Medications: New furosemide (Lasix) 20 mg PO DAILY 60 tabs 3RF R06.01 - Orthopnea Changed From fluticasone propion-salmeterol 250-50 mcg/dose (Wixela Inhub) 1 ea PO BID 60 ea 6RF J45.20 - Mild intermittent asthma, uncomplicated To fluticasone propion-salmeterol 250-50 mcg/dose (Wixela Inhub) 1 ea PO BID J45.20 - Mild intermittent asthma, uncomplicated Coding Level of Care Code Est Pt Level 4 (38740) Diagnoses NSTEMI (non-ST elevated myocardial infarction) I21.4 Orthopnea R06.01
== END 2023-05-30 14:50 | disposition home or self-care (01) ==
PROVIDERS: PCP Internal Medicine; Visit Provider Internal Medicine Cardiovascular Disease
DX: I21.4 Non-ST elevation (NSTEMI) myocardial infarction (principal); R06.01 Orthopnea
CPT/HCPCS: 99214

== ENCOUNTER → 2023-05-30 14:13 | Outpatient (BNVA) | payer OTHER, SELFPAY | PROVIDERS: PCP Internal Medicine; Visit Provider Internal Medicine Cardiovascular Disease | DX: I21.4 Non-ST elevation (NSTEMI) myocardial infarction (principal); R06.01 Orthopnea | CPT/HCPCS: 99212 ==

== ENCOUNTER 2023-06-01 08:55 | Outpatient (REF) | payer OTHER, SELFPAY ==
[2023-06-01 11:07] LABS: Cholesterol 100 mg/dL (<200); HDL Cholesterol 42 mg/dL (>40); LDL Cholesterol Calculated 44 mg/dL (<100); Triglycerides 72 mg/dL (<150)
== END 2023-06-01 08:56 | disposition home or self-care (01) ==
LOC: HO.LAB 08:55
PROVIDERS: PCP Internal Medicine; Visit Provider Internal Medicine Cardiovascular Disease
DX: R06.01 Orthopnea (principal); I25.10 Atherosclerotic heart disease of native coronary artery without angina pectoris; I25.2 Old myocardial infarction
CPT/HCPCS: 36415; 80061

== ENCOUNTER 2023-06-06 10:08 | Outpatient (AMB) | payer OTHER, SELFPAY ==
--- NOTE | 2023-06-06 10:15 | A.OFFVIS_ITS ---
Intake Vital Signs 06/06/23 10:16 Height 5 ft 2 in Weight 169 lb 12.095 oz BMI 31.0 BP 141/69 H Blood Pressure Location Lt brachial Position Sitting Pulse 94 Intake Visit Reasons: 3 month fu Intake Note: Anahy presents in the office as a 3 month follow up. CC: She states that she is not having any concerns. Electric Organ Assembler Required: Yes Electric Organ Assembler Name: Daughter Allergies aspirin [Aspirin] Allergy (Mild, Verified 06/06/23 10:17) Abdominal Pain Penicillins Allergy (Mild, Verified 06/06/23 10:17) NAUSEA/STOMACH PAIN hydrochlorothiazide Allergy (Unknown, Verified 06/06/23 10:17) hypokalemia lisinopril Allergy (Unknown, Verified 06/06/23 10:17) ? swelling Gwbtweq-[id number]-HwR Reductase Inhibitor Allergy (Unknown, Verified 06/06/23 10:17) Muscle cramps ibuprofen [From Motrin] Adverse Reaction (Unknown, Verified 06/06/23 10:17) Abdominal Pain HPI 3 month fu HPI Details LAST VISIT: Gastroparesis Continue small meals. Diet for gastroparesis discussed with patient. Constipation Continue Colace. Patient was encouraged to increase activity to promote better bowel motility. GERD (gastroesophageal reflux disease) Continue pantoprazole twice a day. Discussed with patient avoiding dietary triggers and late night snacking. Staying upright for minimal 3 hours after meals discussed with patient. I will see patient in 3 months, sooner on as needed basis. Will discuss and review last upper endoscopy and colonoscopy and send patient for both. Patient is agreeable to this plan and verbalizes understanding of instructions. She was given the opportunity to ask questions and all questions answered. ? TODAY'S VISIT Patient is here today for follow-up. Patient is accompanied by her daughter who is translating for her per patient's request. Patient had been admitted last month for chest pain. Patient had NSTEMI. Transferred to [facility] for cardiac catheterization. Patient was treated with drug-eluting stent and currently is taking Brilinta twice a day. Patient denies any melena, hematochezia, unintentional weight loss or ribbon like stools. Patient denies any dyspepsia, dysphagia or odynophagia. Occasionally patient reports that she will have epigastric discomfort and bloating depending on what she eats. Otherwise patient denies any GI concerning symptoms. Reports that she has been moving her bowels better now that she is taking Colace. Patient feels like her pain is worse for day or 2 after she takes Trulicity. When reviewing PCPs notes patient's Trulicity was increased to 3 mg a week, however patient continues to take 1.5 mg weekly. Patient's last A1c was 7% in April. Patient's daughter reports that the patient is not avoiding carbs and patient realizes that she needs to change her diet [facility] Medical History (Updated 06/06/23 @ 18:05 by Marcia Candelario [facility]) NSTEMI (non-ST elevated myocardial infarction) Fall HLD (hyperlipidemia) Colon cancer screening Pleural effusion, right Nocturia more than twice per night Glaucoma Cataract of left eye Renal cyst Preop exam for internal medicine On beta kamryn at home Vitamin D deficiency Osteoporosis Restless leg syndrome Type 2 diabetes mellitus with diabetic polyneuropathy Tubal ligation evaluation Adrenal adenoma Pulmonary nodule Fracture of toe of left foot Positive MAGGIE (antinuclear antibody) Osteoarthritis of both knees Osteopenia Ulnar neuropathy Asthma GERD (gastroesophageal reflux disease) Obesity (BMI 30-39.9) Coronary artery disease Hypercholesterolemia Surgical History Hx of right cataract extraction History of esophagogastroduodenoscopy (EGD) Hx of colonoscopy History of breast biopsy History of tubal ligation History of laparoscopic cholecystectomy Family History Mother HTN (hypertension) Diabetes Brother Lung cancer Sister Cancer, colon Daughter Uterine cancer Father Prostate cancer Social History Household Members: Significant Other Household Members Other:: 2 Housing: House Are you a primary medical care administrator to a significant other at home: No Do you presently have visiting nurse or other home services: Yes (INTERNATIONAL ACCOUNT EXECUTIVE) Alcohol intake: never Patient Tobacco Use Status: Former Tobacco user Quit Date: quit years ago Tobacco use type: Cigarette e-Cigarette/Vaping Use: Former Use Second Hand Smoke Exposure: No service: No Current occupational status: retired and disabled Cognitive needs: No Hearing needs: No Vision needs: Yes (glasses) Review of Systems Const Denies weight gain and Denies weight loss ENT Reports no additional complaints, Denies dysphagia and Denies odynophagia Card Reports no additional complaints Resp Reports no additional complaints GI Reports abdominal pain (Occasional, epigastric), Denies belching, Denies melena, Denies bloating, Denies change in bowel habits, Denies dysphagia, Denies excessive flatus, Denies dyspepsia, Denies heartburn, Denies diarrhea, Denies loose stools, Denies nausea, Denies odynophagia and Denies vomiting Reports no additional complaints Musc Reports no additional complaints Neuro Reports no additional complaints Psych Reports no additional complaints Endo Reports no additional complaints Physical Exam Vital Signs: Last Vital Signs Pulse 94 06/06/23 10:16 BP 141/69 H 06/06/23 10:16 BMI result Body Mass Index 31.0 Const General: healthy appearing, no acute distress and well developed Nutritional Appearance: obese Orientation/consciousness: patient oriented x3 HEENT Head: Yes normal to inspection, Yes normocephalic and Yes atraumatic Face and sinus: Yes normal facial exam Mouth: Normal oral and palatal mucosa present Throat: Yes posterior oropharynx normal, Yes tonsils normal and Yes uvula midline Eyes General: appearance normal, both eyes and all related structures Neck Neck: Yes normal visual inspection, Yes full ROM and Yes trachea midline Thyroid: Thyroid normal Resp Effort & Inspection: normal respiratory effort, able to speak in complete sentences, no tracheal deviation and symmetric chest movement Auscultation: clear to auscultation bilaterally Cardio Rate: regular rate Heart sounds: S1 normal heart sound present and S2 normal heart sound present GI Inspection: Yes normal to inspection, No distended and Yes obesity Palpation (GI): Soft to palpation, not firm, nontender and No hepatosplenomegaly present Auscultation: normal bowel sounds General: Yes no CVA tenderness Back/Spine/Pelvis Back: no CVA tenderness Skin General skin exam: elasticity normal, turgor normal and dry skin Neuro General: patient oriented x3 Psych Appearance: grossly normal Mental Status: mental status grossly normal Speech and movement: Normal speech and movement present Assessment & Plan Assessment & Plan (1) Abdominal bloating: Code(s): R14.0 - Abdominal distension (gaseous) Plan: Occasional postprandial abdominal bloating depending on what she eats. Patient reports that she is moving her bowels better now that he is taking Colace. (2) Constipation: Code(s): K59.00 - Constipation, unspecified Qualifiers: Constipation type: slow transit constipation Qualified Code(s): K59.01 - Slow transit constipation Plan: Continue Colace. Patient was encouraged to increase fluid intake and activity to promote better bowel motility. Activity as tolerated. Patient will start cardiac rehab soon (3) GERD (gastroesophageal reflux disease): Code(s): K21.9 - Gastro-esophageal reflux disease without esophagitis Qualifiers: Esophagitis presence: without esophagitis Qualified Code(s): K21.9 - Gastro-esophageal reflux disease without esophagitis Plan: Continue pantoprazole. Discussed with patient avoiding dietary triggers and late night snacking. Staying upright for minimum 3 hours after meals discussed with patient. (4) Gastroparesis: Code(s): K31.84 - Gastroparesis Plan: Significantly improved gastroparesis. Patient was encouraged to continue to eat smaller meals. I will see patient in 6 months, sooner on as needed basis. Patient is agreeable to this plan and verbalizes understanding of instructions. She was given the opportunity to ask questions and all questions answered. Thank you for allowing me to participate in her care Orders: Orders Pancreatic Elastase-1 Today R10.9 - Unspecified abdominal pain Hemoglobin A1c Today E11.9 - Type 2 diabetes mellitus without complications Medications: Refilled docusate sodium 100 mg PO BEDTIME 90 caps 3RF K59.00 - Constipation, unspecified pantoprazole 40 mg PO BID 180 tabs 2RF Coding Level of Care Code Est Pt Level 4 (35752) Diagnoses Abdominal bloating R14.0 Slow transit constipation K59.01 Constipation type: slow transit constipation Gastroesophageal reflux disease without esophagitis K21.9 Esophagitis presence: without esophagitis Gastroparesis K31.84 Time Spent (min) 35 Comment 20 minutes spent with patient and additional 15 minutes spent reviewing her records
[2023-06-06 10:16] VITALS: BP 141/69; PULSE 94; BMI 31.0
== END 2023-06-06 10:51 | disposition home or self-care (01) ==
PROVIDERS: PCP Internal Medicine; Visit Provider Nurse Practitioner Family
DX: R14.0 Abdominal distension (gaseous) (principal); K59.01 Slow transit constipation; K21.9 Gastro-esophageal reflux disease without esophagitis; K31.84 Gastroparesis
CPT/HCPCS: 99214

== ENCOUNTER → 2023-06-06 10:08 | Outpatient (BNVA) | payer OTHER, SELFPAY | PROVIDERS: PCP Internal Medicine; Visit Provider Nurse Practitioner Family | DX: K31.84 Gastroparesis (principal); K21.9 Gastro-esophageal reflux disease without esophagitis; K59.01 Slow transit constipation; R14.0 Abdominal distension (gaseous); E11.42 Type 2 diabetes mellitus with diabetic polyneuropathy; Z90.49 Acquired absence of other specified parts of digestive tract | CPT/HCPCS: 99212 ==

== ENCOUNTER 2023-06-13 10:52 | Outpatient (AMB) | payer OTHER, SELFPAY ==
--- NOTE | 2023-06-13 10:53 | MHC.OFFVIS ---
Intake Vital Signs 06/13/23 10:56 Height 5 ft 2 in Weight 174 lb 6.17 oz BMI 31.9 BP 132/64 Blood Pressure Location Rt brachial Position Sitting Pulse 84 Pulse Source Pulse Oximeter Intake Visit Reasons: dm and adrenal/LVM Intake Note: New patient to Dr. Ro present today for Diabetes Mellitus and Adrenal Adenoma follow up visit. Previously followed by Dr. Montes. Last Diabetic Eye exam: less than 1 year, has an upcoming appointment Last Podiatry Visit: Does not see a Pulverizer Tender Random Glucose: 242 mg/dl HgA1C: 7.0% 04/10/2023 Quality Control Associate Required: No Quality Control Associate Name: Refusal Form signed Accompanied by: Daughter Allergies aspirin [Aspirin] Allergy (Mild, Verified 06/13/23 10:58) Abdominal Pain Penicillins Allergy (Mild, Verified 06/13/23 10:58) NAUSEA/STOMACH PAIN hydrochlorothiazide Allergy (Unknown, Verified 06/13/23 10:58) hypokalemia lisinopril Allergy (Unknown, Verified 06/13/23 10:58) ? swelling Zaqcpud-BCV-EuF Reductase Inhibitor Allergy (Unknown, Verified 06/13/23 10:58) Muscle cramps ibuprofen [From Motrin] Adverse Reaction (Unknown, Verified 06/13/23 10:58) Abdominal Pain Medication List - Last Reconciled 06/13/23 by Jhon Ro MD [adult pull ups As directed] albuterol sulfate 90 mcg/actuation 2 puffs inhalation Q4-6H PRN albuterol sulfate 2.5 mg (3 mL) continuous nebulization Q4-6H PRN amlodipine 5 mg PO DAILY aspirin 81 mg PO DAILY 90 days atorvastatin 40 mg PO BEDTIME blood pressure monitor (Blood Pressure Kit) As directed blood sugar diagnostic (OneTouch Verio test strips) As directed twice a day, fasting am and at bedtime cholecalciferol (vitamin D3) 50 mcg PO DAILY 90 days docusate sodium 100 mg PO BEDTIME ezetimibe (Zetia) 10 mg PO DAILY fluticasone propion-salmeterol 250-50 mcg/dose (Wixela Inhub) 1 ea PO BID gabapentin 300 mg PO BEDTIME insulin glargine (Lantus Solostar U-100 Insulin) 18 units subcut BEDTIME lancets As directed twice a day losartan 50 mg PO DAILY metformin 1,000 mg (2 x 500 mg) PO BID 30 days methylcellulose (laxative) (Citrucel) 500 mg PO DAILY metoprolol tartrate 100 mg PO BID nebulizers (Altera Nebulizer System) As directed updraft Q 4 hours prn with albuterol pantoprazole 40 mg PO BID ticagrelor (Brilinta) 90 mg PO BID tolterodine ER 4 mg (2 x 2 mg) PO DAILY 90 days HPI HPI Comments History of Present Illness Details 73 YO Female with PMHx T2DM who is seen in F/U today due to T2DM, Adrenal Adenoma and also Osteoporosis. The patient last saw Dr. Montes on 01/01/2023 1) T2DM: Initially diagnosed with T2DM in 2009. Was initially started on treatment with Metformin. She has been using Insulin since approximately 2014. Current regimen Metformin 500 mg PO BID, Trulicity 1.5 mg once a week stopped because of nausea and vomiting and Lantus 18 units qHS. Checks sugars sporadically. Average glucose is 251 range 187 to 367 Reports low sugars rarely in the mornings, which is the only time she is checking. Reports no symptoms with hypoglycemia. She is unaware of how to treat her hypoglycemia. Most recent A1C:7 % on 04/10/2023 Family history of T2DM in her Mother and siblings. Has eyes checked yearly, last eye exam early 2022, has appt next wk denies retinopathy. Has neuropathy, last foot exam 01/01/2023, sees podiatry. Unsure if nephropathy, not on HARSHAL/ARB due to swelling. Has HLD, not on statin. Remains on Zetia 10 mg PO daily. Denies CAD. Diet: Does not follow a lob carbohydrate diet. Weight: Stable. Has not had diabetes education. 2. Adrenal Adenoma: Review of patient's images reveal presence of L sided adrenal nodule dating as far back as 2012, and even longer. She underwent biochemical evaluation which was WNL in the past, but has not completed her repeat evaluation in quite some time. She has also not gone for her imaging for over 1 year now, with multiple no-shows. Most recent CT dated 11/08/2020 L sided adrenal nodule measuring 3.2 cm. This had high washoutout as detailed below. Labs ruled out pheo, elisha's and also hyperaldosteronism. She presents today to review. Her renin was suppressed, but she remains on Metoprolol. She does report her BP has been elevated. Aldosterone was 6, with potassium >4.0. She reports feeling well today and has no complaints. CT Abdomen: 11/08/2020 FINDINGS: LUNG BASES: The lung bases are clear. Suspect small hiatal hernia. The heart size is normal. LIVER, GALLBLADDER, AND BILIARY TREE: The liver is homogeneous in density, normal size, shape and contour. No focal lesion or intrahepatic ductal dilatation seen. The gallbladder has been surgically removed. PANCREAS: The pancreas is homogeneous in density and normal size. SPLEEN: The spleen is normal size and density. ADRENAL GLANDS AND KIDNEYS: There is a hypodense left adrenal lesion measuring 3.2 x 2.8 x 2.90 cm. It measures -8.4 Hounsfield units on precontrast, 49 Hounsfield units on postcontrast exam and 11 Hounsfield units on delayed exam. The absolute washout is 66.2% and the relative washout measures 77.6%. These findings are consistent with adenoma. Both kidneys are normal size, shape and position. There is a moderate size exophytic cyst, lower pole left kidney, measuring 3.0 x 2.8 x 3.0 cm and 9 Hounsfield units. No radiopaque renal calculi or hydroureteronephrosis seen. Opacified bilateral kidney pelvises and the ureters are of normal caliber. BOWEL LOOPS: There is scattered stool seen in the colon without any significant distention. The small bowel loops are normal caliber. There is no free air or free fluid. No inflammatory process seen in the abdomen. LYMPH NODES: Normal. VASCULAR: Unremarkable. BONES: There are degenerative disc changes with ventral spondylosis L1-L2 disc level. No lytic or sclerotic process seen. Labs: Laboratory Tests 12/22/20 12/22/20 12/22/20 09:40 09:40 09:40 Sodium Potassium 4.3 Creatinine Estimated GFR Renin 0.11 L Aldosterone 5 DHEA Sulfate ACTH 02/09/22 02/09/22 02/09/22 07:29 07:29 07:29 Sodium 138 Potassium 3.9 Creatinine 0.72 Estimated GFR > 60 Renin Aldosterone DHEA Sulfate 15 ACTH 10 10/26/20 10/26/20 10/26/20 08:45 08:45 08:57 Potassium Creatinine Estimated GFR N-Telopeptide X-li nked 51 Renin Aldosterone 6 25-OH Vitamin D To valdez DHEA Sulfate 13 PTH Intact 54 Calcium (PTH Intac t) 9.3 Cortisol ACTH Plas Tot Catechola mine 665 Dopamine <20 Epinephrine <40 Norepinephrine 665 Plasma Free Metane ph <25 Plasma Free Normet a 101 Plas Total Metanep h 101 Ur 24 Hour Volume Ur Creatinine 24 H our Ur Free Cortisol 2 4 Hr U Norepinephrine 2 4 Hr U Free Metanephrin e U Normetanephrine 24h U Tot Metanephrine 24h Ur Dopamine 24 Hr U Tot Catecholamin e 24h Dexamethasone 364 10/26/20 10/26/20 10/26/20 08:57 08:57 08:57 Potassium Creatinine Estimated GFR N-Telopeptide X-li nked Renin 0.10 L Aldosterone 25-OH Vitamin D To valdez DHEA Sulfate PTH Intact Calcium (PTH Intac t) Cortisol 1.2 L ACTH <5 L Plas Tot Catechola mine Dopamine Epinephrine Norepinephrine Plasma Free Metane ph Plasma Free Normet a Plas Total Metanep h Ur 24 Hour Volume Ur Creatinine 24 H our Ur Free Cortisol 2 4 Hr U Norepinephrine 2 4 Hr U Free Metanephrin e U Normetanephrine 24h U Tot Metanephrine 24h Ur Dopamine 24 Hr U Tot Catecholamin e 24h Dexamethasone 10/28/20 10/28/20 10/28/20 08:00 08:00 08:00 Potassium Creatinine Estimated GFR N-Telopeptide X-li nked Renin Aldosterone 25-OH Vitamin D To valdez DHEA Sulfate PTH Intact Calcium (PTH Intac t) Cortisol ACTH Plas Tot Cate[place]ola mine Dopamine Epinephrine Norepinephrine Plasma Free Metane ph Plasma Free Normet a Plas Total Metanep h Ur 24 Hour Volume 700 Ur Creatinine 24 H our 1.05 Ur Free Cortisol 2 4 Hr 13.5 U Norepinephrine 2 4 Hr 65 U Free Metanephrin e 93 U Normetanephrine 24h 418 U Tot Metanephrine 24h 511 Ur Dopamine 24 Hr 312 U Tot Catecholamin e 24h 65 Dexamethasone 10/28/20 08:40 Potassium 4.0 Creatinine 0.70 Estimated GFR > 60 N-Telopeptide X-li nked Renin Aldosterone 25-OH Vitamin D To valdez 33.9 DHEA Sulfate PTH Intact Calcium (PTH Intac t) Cortisol ACTH Plas Tot Catechola mine Dopamine Epinephrine Norepinephrine Plasma Free Metane ph Plasma Free Normet a Plas Total Metanep h Ur 24 Hour Volume Ur Creatinine 24 H our Ur Free Cortisol 2 4 Hr U Norepinephrine 2 4 Hr U Free Metanephrin e U Normetanephrine 24h U Tot Metanephrine 24h Ur Dopamine 24 Hr U Tot Catecholamin e 24h Dexamethasone PFSH Medical History NSTEMI (non-ST elevated myocardial infarction) Fall HLD (hyperlipidemia) Colon cancer screening Pleural effusion, right Nocturia more than twice per night Glaucoma Cataract of left eye Renal cyst Preop exam for internal medicine On beta kamryn at home Vitamin D deficiency Osteoporosis Restless leg syndrome Type 2 diabetes mellitus with diabetic polyneuropathy Tubal ligation evaluation Adrenal adenoma Pulmonary nodule Fracture of toe of left foot Positive MAGGIE (antinuclear antibody) Osteoarthritis of both knees Osteopenia Ulnar neuropathy Asthma GERD (gastroesophageal reflux disease) Obesity (BMI 30-39.9) Coronary artery disease Hypercholesterolemia Surgical History Hx of right cataract extraction History of esophagogastroduodenoscopy (EGD) Hx of colonoscopy History of breast biopsy History of tubal ligation History of laparoscopic cholecystectomy Family History Mother HTN (hypertension) Diabetes Brother Lung cancer Sister Cancer, colon Daughter Uterine cancer Father Prostate cancer Social History Household Members: Significant Other Household Members Other:: 2 Housing: House Are you a primary home care giver to a significant other at home: No Do you presently have visiting nurse or other home services: 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 Absence of acromegalic features. Neck exam reveals nl size thyroid about 15 gms. No thyroid nodules palpable. No carotid bruits present. Lungs CTA. Heart S1 S2, Reg R/R. No M/R/ G. Skin exam reveals absence of vitiligo or acanthosis nigricans. Abdominal exam reveals Soft NT/ND with NA BS. No organomegaly present. Neck Other: . Extrem Other: Visual exam of foot performed. No ulcerations or open lesions. No onchomycosis, no callouses.Pulses 2 + distally Sensation intact to monofilament exam. Vibratory sensation sensed is intact with 128 Hz tuning fork Assessment & Plan Assessment & Plan (1) Type 2 diabetes mellitus with hyperglycemia: Comment: / Charlie Code(s): E11.65 - Type 2 diabetes mellitus with hyperglycemia Plan: This is a 73-year-old female with a history of type 2 diabetes being treated with metformin, and basal insulin with excellent glycemic control and known microvascular and macrovascular complications namely neuropathy and recent MA The plan is to initiate Ozempic 0.25 mg Q weekly and titrate as tolerated for glycemic control and cardio protection. Went over side effects of Ozempic including but not limited to nausea, vomiting and rare risk of pancreatitis. If patient cannot tolerate Ozempic, would consider adding Jardiance. Patient has a sensor namely Samir 2 and will hook that up in near future. She will follow-up with the visual educator Ozempic 0.25 mg samples given to patient lot number and [id number] expiration date 10/10/2024 (2) Adrenal adenoma: Code(s): D35.00 - Benign neoplasm of unspecified adrenal gland Qualifiers: Laterality: unspecified laterality Qualified Code(s): D35.00 - Benign neoplasm of unspecified adrenal gland Plan: CT scan characteristics showed benign adenoma. No need for further imaging. Further workup in past showed that mass was non secretory. Recent follow-up workup for secretion was negative including workup for Elisha's and pheochromocytoma. Will continue to follow on a yearly basis Medications: New semaglutide (Ozempic) 0.5 mg (0.736 mL) subcut QWEEK 3 mL 4RF Coding Level of Care Code Est Pt Level 4 (05909) Diagnoses Type 2 diabetes mellitus with hyperglycemia E11.65 Adrenal adenoma, unspecified laterality D35.00 Laterality: unspecified laterality
[2023-06-13 10:56] VITALS: BP 132/64; PULSE 84; BMI 31.9
[2023-06-13 11:08] LABS: Glucose, Whole Blood 242 mg/dL (60-115)
== END 2023-06-13 11:26 | disposition home or self-care (01) ==
PROVIDERS: PCP Internal Medicine; Visit Provider Internal Medicine Endocrinology, Diabetes & Metabolism
DX: E11.65 Type 2 diabetes mellitus with hyperglycemia (principal); D35.00 Benign neoplasm of unspecified adrenal gland
CPT/HCPCS: 99214

== ENCOUNTER → 2023-06-13 10:52 | Outpatient (BNVA) | payer OTHER, SELFPAY | PROVIDERS: Visit Provider Internal Medicine Endocrinology, Diabetes & Metabolism | DX: E11.65 Type 2 diabetes mellitus with hyperglycemia (principal); D35.00 Benign neoplasm of unspecified adrenal gland; Z79.4 Long term (current) use of insulin | CPT/HCPCS: 82947; 99212 ==

== ENCOUNTER 2023-06-20 09:47 | Outpatient (REF) | payer OTHER, SELFPAY ==
--- NOTE | ~2023-06-20 | CT_ITS ---
EXAMINATION: CT HEAD WITHOUT CONTRAST CLINICAL INFORMATION: Headache. COMPARISON: CT head from 08/22/2019. TECHNIQUE: Contiguous axial imaging was performed from the skull base to vertex without intravenous administration of contrast. This CT examination was performed using dose optimization techniques as appropriate, variously including the following: *Automated exposure control. *Adjustment of mA and/or kV according to patient size (this includes techniques or standardized protocols for targeted exams where dose is matched to indication/reason for exam; i.e. extremities or head). *Use of iterative reconstruction technique. DLP: 704 mGy-cm FINDINGS: There is no evidence of acute intracranial hemorrhage or edematous territorial infarction. Crabtree-white matter differentiation is preserved. A few foci of hypoattenuation in the periventricular and deep white matter are consistent with mild microangiopathy. The ventricles are normal in morphology and size. No evidence for obstructive hydrocephalus. The sella turcica is moderately expanded with flattening of the pituitary gland. The cerebellar tonsils are normally positioned. No abnormal mass effect or midline shift. No extra-axial fluid collections. No acute soft tissue or osseous abnormalities. The mastoid air cells and visualized paranasal sinuses are clear. CT/CT head/brain wo IV con IMPRESSION: 1. No evidence of acute intracranial hemorrhage or edematous territorial infarction. 2. Mild underlying microangiopathy.
== END 2023-06-20 09:48 | disposition home or self-care (01) ==
LOC: HO.CT 09:47
PROVIDERS: PCP Internal Medicine; Visit Provider Internal Medicine
DX: R51.9 Headache, unspecified (principal)
CPT/HCPCS: 70450

== ENCOUNTER 2023-06-20 18:17 | Emergency (ER) | payer OTHER, SELFPAY ==
[2023-06-20 18:51] VITALS: BP 162/77; PULSE 85; RESP 18; TEMP 36.8; O2SAT 99; BMI 31.5
--- NOTE | 2023-06-20 18:52 | ED.GENADULT ---
HPI - General Adult General Chief complaint: General Medical Stated complaint: headache, vomiting, nausea, high bp Related Data Home Medications Medication Instructions Recorded Confirmed insulin glargine 100 unit/mL (3 18 unit subcut BEDTIME 01/22/23 05/30/23 mL) subcutaneous pen (Lantus Solostar U-100 Insulin) amlodipine 5 mg tablet 5 mg PO DAILY 05/11/23 05/30/23 fluticasone 250 mcg-salmeterol 50 1 ea PO BID 05/30/23 05/30/23 mcg/dose blistr powdr for inhalation (Wixela Inhub) methylcellulose (laxative) 500 mg 500 mg PO DAILY 06/06/23 tablet (Citrucel) Previous Rx's Medication Instructions Recorded albuterol sulfate 2.5 mg/3 mL 2.5 mg (3 mL) continuous 06/29/20 (0.083 %) solution for nebulization nebulization Q4-6H PRN bronchospasm #180 mL nebulizers ([employer] Nebulizer #1 ea 06/29/20 System) albuterol sulfate 90 mcg/actuation 2 puff inhalation Q4-6H PRN 09/04/22 aerosol inhaler shortness of breath or wheezing #6.7 grams blood pressure monitor (Blood #1 ea 11/01/22 Pressure Kit) metformin 500 mg tablet 1,000 mg (2 x 500 mg) PO BID 30 01/01/23 days #120 caps ezetimibe 10 mg tablet (Zetia) 10 mg PO DAILY #90 tabs 01/15/23 gabapentin 300 mg capsule 300 mg PO BEDTIME #30 caps 02/15/23 cholecalciferol (vitamin D3) 50 50 mcg PO DAILY 90 days #90 caps 03/01/23 mcg (2,000 unit) capsule tolterodine 2 mg capsule,extended 4 mg (2 x 2 mg) PO DAILY 90 days 03/01/23 release 24 hr #180 caps metoprolol tartrate 100 mg tablet 100 mg PO BID #180 tabs 03/22/23 losartan 50 mg tablet 50 mg PO DAILY #30 tabs 04/10/23 lancets 33 gauge #100 ea 05/08/23 adult pull ups #180 ea 05/09/23 atorvastatin 40 mg tablet 40 mg PO BEDTIME #90 tabs 05/18/23 blood sugar diagnostic (OneTouch #50 ea 05/18/23 Verio test strips) docusate sodium 100 mg capsule 100 mg PO BEDTIME #90 caps 06/06/23 pantoprazole 40 mg tablet,delayed 40 mg PO BID #180 tabs 06/06/23 release aspirin 81 mg tablet,delayed 81 mg PO DAILY 90 days #90 tabs 06/11/23 release ticagrelor 90 mg tablet (Brilinta) 90 mg PO BID #60 tabs 06/11/23 semaglutide 0.25 mg or 0.5 mg (2 0.5 mg (0.736 mL) subcut QWEEK #3 06/13/23 mg/3 mL) subcutaneous pen injector mL (Ozempic) Allergies Allergy/AdvReac Type Severity Reaction Status Date / Time aspirin [Aspirin] Allergy Mild Abdominal Verified 06/13/23 10:58 Pain Penicillins Allergy Mild NAUSEA/STOMACH Verified 06/13/23 10:58 PAIN hydrochlorothiazide Allergy Unknown hypokalemia Verified 06/13/23 10:58 lisinopril Allergy Unknown ? swelling Verified 06/13/23 10:58 [id number] Reductase Allergy Unknown Muscle Verified 06/13/23 10:58 Inhibitor cramps ibuprofen [From Motrin] AdvReac Unknown Abdominal Verified 06/13/23 10:58 Pain PMFSH Past Medical History Medical History NSTEMI (non-ST elevated myocardial infarction) Fall HLD (hyperlipidemia) Colon cancer screening Pleural effusion, right Nocturia more than twice per night Glaucoma Cataract of left eye Renal cyst Preop exam for internal medicine On beta kamryn at home Vitamin D deficiency Osteoporosis Restless leg syndrome Type 2 diabetes mellitus with diabetic polyneuropathy Tubal ligation evaluation Adrenal adenoma Pulmonary nodule Fracture of toe of left foot Positive MAGGIE (antinuclear antibody) Osteoarthritis of both knees Osteopenia Ulnar neuropathy Asthma GERD (gastroesophageal reflux disease) Obesity (BMI 30-39.9) Coronary artery disease Hypercholesterolemia Surgical History Hx of right cataract extraction History of esophagogastroduodenoscopy (EGD) Hx of colonoscopy History of breast biopsy History of tubal ligation History of laparoscopic cholecystectomy Family History Family History Mother HTN (hypertension) Diabetes Brother Lung cancer Sister Cancer, colon Daughter Uterine cancer Father Prostate cancer Social History Social History Household Members: Significant Other Household Members Other:: 2 Housing: House Are you a primary respite care provider to a significant other at home: No Do you 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 This is a [id number], with a hx of adrenal adenoma, asthma, CAD, GERD, glaucoma, HLD, hypercholesterolemia, osteopenia, osteoporososis, ME wtih stent placement 1 month ago, DM, presenting to the ER with complaints of headache, nausea, vomiting, and HTN starting today. On ASA and Brillinta. Patient had head CT performed this morning which is still waiting to be read by a radiologist. Plan: Labs, EKG Reevaluation(s) Reevaluation #1: pt eloped prior to being fully evaluated by primary provider. Medical Decision Making Lab Data 06/20/23 19:27 06/20/23 19:27 Labs: Lab Results 06/20/23 Range/Units 19:27 WBC 8.7 (4.8-10.8) X10*3/uL RBC 3.48 L (4.20-5.50) X10*6/uL Hgb 10.1 L (12.0-16.0) g/dl Hct 31.3 L (37.0-47.0) % MCV 89.9 (80.0-98.0) fL MCH 29.0 (27.0-33.0) pg MCHC 32.3 (31.0-35.0) g/dl RDW 14.6 (11.0-16.0) % Plt Count 345 (160-400) X10*3/uL MPV 10.4 (9.4-12.3) fL Immature Gran % (Auto) 0.7 H (0.0-0.4) % Neut % (Auto) 61.5 (45-73) % Lymph % (Auto) 23.1 (20-40) % [place] % (Auto) 9.3 (2-11) % Eos % (Auto) 4.5 H (0-4) % Baso % (Auto) 0.9 (0-2) % Lymph # (Auto) 2.0 (1.2-4.9) X10*3/uL [place] # (Auto) 0.8 (0.1-1.2) X10*3/uL Eos # (Auto) 0.4 (0.0-0.4) X10*3/uL Baso # (Auto) 0.1 (0.0-0.2) X10*3/uL Abs Immat Gran (auto) 0.06 H (0.00-0.03) X10*3/uL Absolute Neuts (auto) 5.3 (2.0-8.3) x10*3/uL Absolute Nucleated RBC 0.000 (0.0-0.012) X10*3/uL Nucleated RBC % (auto) 0.0 (0.0-0.2) /100WBC Sodium 140 (135-145) mmol/L Potassium 3.8 (3.3-5.1) mmol/L Chloride 103 (96-108) mmol/L Carbon Dioxide 25 (22-29) mmol/L Anion Gap 16 (12-20) BUN 9 (9-16) mg/dL Creatinine 0.81 (0.5-1.4) mg/dL Estim Creat Clear Calc 58.0 Estimated GFR > 60 Random Glucose 343 H (60-115) mg/dL Calcium 9.4 (8.4-10.2) mg/dL Total Bilirubin 0.4 (0.0-1.0) mg/dL Direct Bilirubin 0.2 (0.0-0.5) mg/dL AST 18 (5-31) U/L ALT 15 (0-31) U/L Alkaline Phosphatase 86 (39-117) U/L Troponin I High Sens 5.0 D (<3.5-17.0) ng/L Total Protein 7.0 (6.5-8.0) g/dL Albumin 3.9 (3.5-5.0) g/dL Discharge Plan Discharge Clinical Impression: Headache Patient Disposition: Left W/O Completing Treatment Prescriptions: No Action ezetimibe [Zetia] 10 mg tablet 10 mg PO DAILY Qty: 90 0RF gabapentin 300 mg capsule 300 mg PO BEDTIME Qty: 30 6RF cholecalciferol (vitamin D3) 50 mcg (2,000 unit) capsule 50 mcg PO DAILY 90 Days Qty: 90 3RF tolterodine 2 mg capsule,extended release 24hr 4 mg PO DAILY 90 Days Qty: 180 1RF metoprolol tartrate 100 mg tablet 100 mg PO BID Qty: 180 3RF (DME) lancets 33 gauge misc See Rx Instructions .ROUTE .MEDSUPPLY Qty: 100 11RF Rx Instructions: As directed twice a day (DME) adult pull ups LARGE See Rx Instructions .Route .MEDSUPPLY Qty: 180 0RF Rx Instructions: As directed Brilinta 90 mg tablet 90 mg PO BID Qty: 60 4RF aspirin 81 mg tablet,delayed release (DR/EC) 81 mg PO DAILY 90 Days Qty: 90 3RF albuterol sulfate 90 mcg/actuation HFA aerosol inhaler 2 puff inhalation Q4-6H PRN (Reason: shortness of breath or wheezing) Qty: 6.7 0RF amlodipine 5 mg tablet 5 mg PO DAILY (DME) [employer]tera Nebulizer System [facility] [place] Instructions .ROUTE .MEDSUPPLY Qty: 1 0RF Rx Instructions: As directed updraft Q 4 hours prn with albuterol albuterol sulfate 2.5 mg /3 mL (0.083 %) solution for nebulization 2.5 mg continuous nebulization Q4-6H PRN (Reason: bronchospasm) Qty: 180 3RF (DME) blood pressure monitor [Blood Pressure Kit] Kit See Rx Instructions .ROUTE .MEDSUPPLY Qty: 1 0RF Rx Instructions: As directed atorvastatin 40 mg tablet 40 mg PO BEDTIME Qty: 90 1RF (DME) OneTouch Verio test strips Strip See Rx Instructions .ROUTE .MEDSUPPLY Qty: 50 11RF Rx Instructions: As directed twice a day, fasting am and at bedtime losartan 50 mg tablet 50 mg PO DAILY Qty: 30 2RF metformin 500 mg tablet 1,000 mg PO BID 30 Days Qty: 120 11RF Ozempic 0.25 mg or 0.5 mg (2 mg/3 mL) pen injector 0.5 mg subcut QWEEK Qty: 3 4RF Citrucel 500 mg tablet 500 mg PO DAILY docusate sodium 100 mg capsule 100 mg PO BEDTIME Qty: 90 3RF pantoprazole 40 mg tablet,delayed release (DR/EC) 40 mg PO BID Qty: 180 2RF fluticasone propion-salmeterol [Wixela Inhub] 250-50 mcg/dose blister with device 1 ea PO BID insulin glargine [Lantus Solostar U-100 Insulin] 100 unit/mL (3 mL) insulin pen 18 unit subcut BEDTIME Discharge Date/Time: 06/20/23 21:19
[2023-06-20 19:30] LABS: MANUAL DIFF FLAG NO
[2023-06-20 19:32] LABS: Basophils Absolute Auto 0.1 X10*3/uL (0.0-0.2); Basophils Percent Auto 0.9 % (0-2); Eosinophils Absolute Auto 0.4 X10*3/uL (0.0-0.4); Eosinophils Percent Auto 4.5 % (0-4); Hematocrit 31.3 % (37.0-47.0); Hemoglobin 10.1 g/dl (12.0-16.0); Imm Gran Abs Auto 0.06 X10*3/uL (0.00-0.03); Imm Gran Pct Auto 0.7 % (0.0-0.4); Lymphocytes Percent Auto 23.1 % (20-40); Mean Corpuscular HGB Conc 32.3 g/dl (31.0-35.0); Mean Corpuscular Volume 89.9 fL (80.0-98.0); Mean Platelet Volume 10.4 fL (9.4-12.3); Monocytes Absolute Auto 0.8 X10*3/uL (0.1-1.2); Monocytes Percent Auto 9.3 % (2-11); Neutrophils Absolute Auto 5.3 x10*3/uL (2.0-8.3); Neutrophils Percent Auto 61.5 % (45-73); Platelet Count 345 X10*3/uL (160-400); Red Blood Count 3.48 X10*6/uL (4.20-5.50); Red Cell Distribution Width 14.6 % (11.0-16.0); White Blood Count 8.7 X10*3/uL (4.8-10.8)
[2023-06-20 20:01] LABS: Alanine Aminotransferase 15 U/L (0-31); Albumin Level 3.9 g/dL (3.5-5.0); Alkaline Phosphatase 86 U/L (39-117); Anion Gap 16 (12-20); Aspartate Amino Transferase 18 U/L (5-31); Bilirubin Direct 0.2 mg/dL (0.0-0.5); Bilirubin Total 0.4 mg/dL (0.0-1.0); Blood Urea Nitrogen 9 mg/dL (9-16); Calcium 9.4 mg/dL (8.4-10.2); Carbon Dioxide 25 mmol/L (22-29); Chloride 103 mmol/L (96-108); Estimated Glomerular Filt Rate > 60; Glucose Random 343 mg/dL (60-115); Potassium 3.8 mmol/L (3.3-5.1); Sodium 140 mmol/L (135-145)
== END 2023-06-20 21:19 | disposition left against medical advice (07) ==
PROVIDERS: Physician Assistant Medical; Emergency Provider Emergency Medicine; PCP Internal Medicine
DX: R51.9 Headache, unspecified (principal); I10 Essential (primary) hypertension; E11.9 Type 2 diabetes mellitus without complications; E78.00 Pure hypercholesterolemia, unspecified; Z79.4 Long term (current) use of insulin; Z79.899 Other long term (current) drug therapy; Z79.82 Long term (current) use of aspirin; Z87.891 Personal history of nicotine dependence
CPT/HCPCS: 36415; 80048; 80076; 84484; 85025; 99281; 99283

== ENCOUNTER → 2023-06-25 10:29 | Outpatient (BNVA) | payer OTHER, SELFPAY | PROVIDERS: PCP Internal Medicine; Visit Provider Internal Medicine Endocrinology, Diabetes & Metabolism ==

== ENCOUNTER 2023-07-09 08:49 | Outpatient (AMB) | payer OTHER, SELFPAY ==
--- NOTE | 2023-07-09 09:24 | A.OFFVIS_ITS ---
Intake Intake Visit Reasons: CGM Training Novelty Chain Maker Required: Yes Novelty Chain Maker Language: Advertising Layout Worker Name: Pt Daughter Information Interpreted: non-clinical & clinical Accompanied by: Daughter Allergies aspirin [Aspirin] Allergy (Mild, Verified 06/13/23 10:58) Abdominal Pain Penicillins Allergy (Mild, Verified 06/13/23 10:58) NAUSEA/STOMACH PAIN hydrochlorothiazide Allergy (Unknown, Verified 06/13/23 10:58) hypokalemia lisinopril Allergy (Unknown, Verified 06/13/23 10:58) ? swelling Vuxonwu-[id number]-JtR Reductase Inhibitor Allergy (Unknown, Verified 06/13/23 10:58) Muscle cramps ibuprofen [From Motrin] Adverse Reaction (Unknown, Verified 06/13/23 10:58) Abdominal Pain HPI Comprehensive Diabetes Asmnt Most Recent Diabetes Results: Cholesterol 100 mg/dL (<200) 06/01/23 HDL Cholesterol 42 mg/dL (>40) 06/01/23 Triglycerides 72 mg/dL (<150) 06/01/23 Creatinine 0.81 mg/dL (0.5-1.4) 06/20/23 Blood Urea Nitrogen 9 mg/dL (9-16) 06/20/23 Sodium 140 mmol/L (135-145) 06/20/23 Potassium 3.8 mmol/L (3.3-5.1) 06/20/23 Chloride 103 mmol/L (96-108) 06/20/23 Carbon Dioxide 25 mmol/L (22-29) 06/20/23 Calcium 9.4 mg/dL (8.4-10.2) 06/20/23 AST 18 U/L (5-31) 06/20/23 ALT 15 U/L (0-31) 06/20/23 Total Protein 7.0 g/dL (6.5-8.0) 06/20/23 Albumin 3.9 g/dL (3.5-5.0) 06/20/23 [facility] Medical History NSTEMI (non-ST elevated myocardial infarction) Fall HLD (hyperlipidemia) Colon cancer screening Pleural effusion, right Nocturia more than twice per night Glaucoma Cataract of left eye Renal cyst Preop exam for internal medicine On beta kamryn at home Vitamin D deficiency Osteoporosis Restless leg syndrome Type 2 diabetes mellitus with diabetic polyneuropathy Tubal ligation evaluation Adrenal adenoma Pulmonary nodule Fracture of toe of left foot Positive MAGGIE (antinuclear antibody) Osteoarthritis of both knees Osteopenia Ulnar neuropathy Asthma GERD (gastroesophageal reflux disease) Obesity (BMI 30-39.9) Coronary artery disease Hypercholesterolemia Surgical History Hx of right cataract extraction History of esophagogastroduodenoscopy (EGD) Hx of colonoscopy History of breast biopsy History of tubal ligation History of laparoscopic cholecystectomy Family History Mother HTN (hypertension) Diabetes Brother Lung cancer Sister Cancer, colon Daughter Uterine cancer Father Prostate cancer Social History Household Members: Significant Other Household Members Other:: 2 Housing: House Are you a primary career guidance counselor to a significant other at home: No 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) Alcohol intake: never Patient Tobacco Use Status: Former Tobacco user Quit Date: quit years ago Tobacco use type: Cigarette e-Cigarette/Vaping Use: Former Use Second Hand Smoke Exposure: No service: No Current occupational status: retired and disabled Cognitive needs: No Hearing needs: No Vision needs: Yes (glasses) Assessment & Plan Assessment & Plan (1) Type 2 diabetes mellitus with hyperglycemia: Comment: Angel Guerra Code(s): E11.65 - Type 2 diabetes mellitus with hyperglycemia Qualifiers: Diabetes mellitus experimental flight test mechanic insulin use: unspecified half-way insulin use status Qualified Code(s): E11.65 - Type 2 diabetes mellitus with hyperglycemia Plan: Patient at visit to set up an insert Dexcom G7 Instructed patient sensors water proof you can shower, or swim do not submerge sensor in water for over 30 minutes Is sensor falls off cannot put back in you need to replace sensor, customer service number given to patient for sensor replacement Sensor placed on the left arm Patient left visit with sensor in warmup Reviewed how to interpret trend arrows Reminded patient that to check finger sticks if symptoms do not match sensor reading. Discussed lag time between finger stick and sensor data.? Instructed patient she should always keep blood glucometer for backup testing if needed Reviewed delay of CGM from fingersticks Reminded pt that if symptoms do not match sensor still needs to check fingersticks. Patient unable to tolerate Trulicity at last visit with Dr. Jayjay Ro prescribed Ozempic 0.25 mg weekly Patient was also unable to tolerate GI side effects from Ozempic Reviewed patient's glucose meter, at this time patient's glucose running anywhere from 172 mg/dL to 470 mg/dL Recommended to patient and her daughter that she increase Lantus to 18 units daily Follow-up with forging operator in 1 month Patient Instructions: Incrementar Lantus de 16 unidades a 18 unidades. Si comienza a tener glucosa por debajo de 75 mg/dL regrese a 16 unidades de seguimiento con educador en diabetes en 1 mes Coding Level of Care Code Est Pt Level 1 (09984) Diagnoses Type 2 diabetes mellitus with hyperglycemia, unspecified whether experimental flight test mechanic insulin use E11.65 Diabetes mellitus experimental flight test mechanic insulin use: unspecified half-way insulin use status
== END 2023-07-09 09:28 | disposition home or self-care (01) ==
PROVIDERS: PCP Internal Medicine; Visit Provider Registered Nurse Diabetes Educator
DX: E11.65 Type 2 diabetes mellitus with hyperglycemia (principal)

== ENCOUNTER → 2023-07-09 08:49 | Outpatient (BNVA) | payer OTHER, SELFPAY | PROVIDERS: PCP Internal Medicine; Visit Provider Registered Nurse Diabetes Educator | DX: E11.65 Type 2 diabetes mellitus with hyperglycemia (principal) | CPT/HCPCS: 99211 ==

== ENCOUNTER 2023-07-13 16:10 | Emergency (ER) | payer OTHER, SELFPAY ==
--- NOTE | ~2023-07-13 | XR_ITS ---
EXAMINATION: CHEST 2 VIEWS CLINICAL INFORMATION: cough. COMPARISON: 05/11/2023. TECHNIQUE: PA and lateral views of the chest obtained. FINDINGS: The lungs are well expanded. No focal infiltrate, effusion, edema, or pneumothorax. Tiny calcified granuloma in the left upper lung zone unchanged from multiple prior studies. Cardiac and mediastinal silhouettes are within normal limits for technique. No acute bony abnormality seen XR/XR chest 2V IMPRESSION: No evidence of acute disease
[2023-07-13 16:27] VITALS: BP 154/70; PULSE 95; RESP 18; TEMP 36.4; O2SAT 99; BMI 31.9
--- NOTE | 2023-07-13 16:29 | ED_ITS ---
HPI - General Adult General Chief complaint: General Medical Stated complaint: horrible cough, dizzy spells, fatigue Time Seen by Provider: 07/13/23 19:25 Source: patient, family (patient's daughter) and home health physical therapist Mode of arrival: ambulatory Limitations: language barrier History of Present Illness HPI narrative: Patient is a 73 year old assigned female at with a history of NSTEMI, DM, HTN and CAD presenting to the emergency department today with a cough and fatigue. Patient states that over the last 3 days she has had increased coughing and fatigue. Patient's daughter states that the patient's blood sugars have been high after her doctor stopped her trulicity. Patient's daughter states that she has attempted numerous times to get the patient into her doctor sooner than December but they are refusing to see her sooner. Patient denies any current dizziness, lightheadedness, abdominal pain, nausea, vomiting, fever, chills, blurry vision, double vision, loss of vision, chest pain, difficulty breathing, shortness of breath, back pain, night sweats, pain with urination, increased urinary frequency, increased urinary urgency, blood in her urine or stool, syncope or a near syncopal episode, recent trauma or falls, bowel incontinence, bladder incontinence, bowel retention, bladder retention, or any other complaints at this time. Onset (ago): day(s) (3) Severity: mild Severity scale (1-10): 4 Relieving factors: none Exacerbating factors: none Associated symptoms: cough Treatments prior to arrival: none Related Data Home Medications Medication Instructions Recorded Confirmed insulin glargine 100 unit/mL (3 18 unit subcut BEDTIME 01/22/23 05/30/23 mL) subcutaneous pen (Lantus Solostar U-100 Insulin) amlodipine 5 mg tablet 5 mg PO DAILY 05/11/23 05/30/23 methylcellulose (laxative) 500 mg 500 mg PO DAILY 06/06/23 tablet (Citrucel) Previous Rx's Medication Instructions Recorded albuterol sulfate 2.5 mg/3 mL 2.5 mg (3 mL) continuous 06/29/20 (0.083 %) solution for nebulization nebulization Q4-6H PRN bronchospasm #180 mL nebulizers (Altera Nebulizer #1 ea 06/29/20 System) albuterol sulfate 90 mcg/actuation 2 puff inhalation Q4-6H PRN 09/04/22 aerosol inhaler shortness of breath or wheezing #6.7 grams blood pressure monitor (Blood #1 ea 11/01/22 Pressure Kit) metformin 500 mg tablet 1,000 mg (2 x 500 mg) PO BID 30 01/01/23 days #120 caps ezetimibe 10 mg tablet (Zetia) 10 mg PO DAILY #90 tabs 01/15/23 gabapentin 300 mg capsule 300 mg PO BEDTIME #30 caps 02/15/23 cholecalciferol (vitamin D3) 50 50 mcg PO DAILY 90 days #90 caps 03/01/23 mcg (2,000 unit) capsule tolterodine 2 mg capsule,extended 4 mg (2 x 2 mg) PO DAILY 90 days 03/01/23 release 24 hr #180 caps metoprolol tartrate 100 mg tablet 100 mg PO BID #180 tabs 03/22/23 lancets 33 gauge #100 ea 05/08/23 adult pull ups #180 ea 05/09/23 atorvastatin 40 mg tablet 40 mg PO BEDTIME #90 tabs 05/18/23 docusate sodium 100 mg capsule 100 mg PO BEDTIME #90 caps 06/06/23 pantoprazole 40 mg tablet,delayed 40 mg PO BID #180 tabs 06/06/23 release aspirin 81 mg tablet,delayed 81 mg PO DAILY 90 days #90 tabs 06/11/23 release ticagrelor 90 mg tablet (Brilinta) 90 mg PO BID #60 tabs 06/11/23 semaglutide 0.25 mg or 0.5 mg (2 0.5 mg (0.736 mL) subcut QWEEK #3 06/13/23 mg/3 mL) subcutaneous pen injector mL (Ozempic) blood sugar diagnostic (OneTouch #50 ea 06/25/23 Verio test strips) fluticasone 250 mcg-salmeterol 50 1 ea PO BID #60 ea 07/02/23 mcg/dose blistr powdr for inhalation (Jeredxela Inhub) losartan 50 mg tablet 50 mg PO DAILY #30 tabs 07/06/23 Allergies Allergy/AdvReac Type Severity Reaction Status Date / Time aspirin [Aspirin] Allergy Mild Abdominal Verified 07/13/23 16:32 Pain Penicillins Allergy Mild NAUSEA/STOMACH Verified 11/03/23 16:32 PAIN hydrochlorothiazide Allergy Unknown hypokalemia Verified 07/13/23 16:32 lisinopril Allergy Unknown ? swelling Verified 07/13/23 16:32 [id number] Reductase Allergy Unknown Muscle Verified 07/13/23 16:32 Inhibitor cramps ibuprofen [From Motrin] AdvReac Unknown Abdominal Verified 07/13/23 16:32 Pain Review of Systems 2 Constitutional: Constitutional: Reports no additional constitutional complaints, Denies chills, Reports fatigue, Denies fever(s) and Denies night sweats Eyes: Eyes: Reports no additional eye complaints, Denies blurry vision, Denies change in vision, Denies diplopia, Denies eye discharge, Denies loss of vision and Denies eye pain ENT: Denies dizziness Cardiovascular: Cardiovascular: Reports no additional cardiovascular complaints, Denies chest pain, Denies lightheadedness, Denies Loss of Consciousness and Denies dyspnea Respiratory: Respiratory: Reports no additional respiratory complaints, Reports cough and Denies dyspnea Gastrointestinal: Gastrointestinal: Reports no additional gastrointestinal complaints, Denies abdominal pain, Denies melena, Denies hematochezia, Denies change in bowel habits and Denies change in stool character Genitourinary: Genitourinary: Denies hematuria, Denies urinary frequency, Denies dysuria, Denies urinary incontinence, Denies urinary hesitancy and Denies urinary urgency Musculoskeletal: Musculoskeletal: Reports no additional musculoskeletal complaints, Denies numbness and Denies tingling Neurologic: Denies dizziness, Denies loss of vision, Denies numbness and Denies tingling Psychiatric: Psychiatric: Reports no additional psychiatric complaints Endocrine: Endocrine: Reports no additional endocrine complaints and Reports fatigue Hematologic/Lymphatic: Hematologic/Lymphatic: Reports no additional hematologic/lymphatic complaints Allergic/Immunologic: Allergic/Immunologic: Reports no additional allergic/immunologic complaints [facility] Past Medical History Attestation statement: The following information was validated with the patient. Source: old records reviewed and nursing notes reviewed Medical History Orthopnea Headache Lower extremity edema Urinary frequency Right shoulder pain Constipation Abdominal bloating Shoulder pain, right Hip pain, left Nasal congestion Chest pain NSTEMI (non-ST elevated myocardial infarction) Fall HLD (hyperlipidemia) Colon cancer screening Pleural effusion, right Nocturia more than twice per night Glaucoma Cataract of left eye Renal cyst Preop exam for internal medicine On beta kamryn at home Vitamin D deficiency Osteoporosis Restless leg syndrome Type 2 diabetes mellitus with diabetic polyneuropathy Tubal ligation evaluation Adrenal adenoma Pulmonary nodule Fracture of toe of left foot Positive MAGGIE (antinuclear antibody) Osteoarthritis of both knees Osteopenia Ulnar neuropathy Asthma GERD (gastroesophageal reflux disease) Obesity (BMI 30-39.9) Coronary artery disease Hypercholesterolemia Surgical History Hx of right cataract extraction History of esophagogastroduodenoscopy (EGD) Hx of colonoscopy History of breast biopsy History of tubal ligation History of laparoscopic cholecystectomy Family History Family History Mother HTN (hypertension) Diabetes Brother Lung cancer Sister Cancer, colon Daughter Uterine cancer Father Prostate cancer Social History Social History Household Members: Significant Other Household Members Other:: 2 Housing: House Are you a primary lawn care professional to a significant other at home: No Do you presently have visiting nurse or other home services: Yes ([employer]) Alcohol intake: never Patient Tobacco Use Status: Former Tobacco user Quit Date: quit years ago Tobacco use type: Cigarette Smoked in Last 30 Days: No e-Cigarette/Vaping Use: Former Use Second Hand Smoke Exposure: No Use of substances other than those prescribed or required for medical reasons: No Advance Directives: No service: No Current occupational status: retired and disabled Cognitive needs: No Hearing needs: No Vision needs: Yes (glasses) Physical Exam ED Vital Signs: Vital Signs - 24 hr 07/13/23 16:27 07/13/23 19:30 07/13/23 19:58 Temperature 97.6 F Pulse Rate 95 96 88 Respiratory Rate 18 18 18 Blood Pressure 154/70 H 164/64 H Pulse Oximetry 99 98 Oxygen Delivery Method Room Air Room Air 07/13/23 20:40 07/13/23 21:58 Temperature Pulse Rate 95 95 Respiratory Rate 18 18 Blood Pressure Pulse Oximetry Oxygen Delivery Method BMI result Body Mass Index 31.9 Const General: cooperative, no acute distress, alert and awake Nutritional Appearance: well nourished Orientation/consciousness: patient oriented x3 Limitations: no limitations HENMT Head: Yes normal to inspection and Yes atraumatic Ears: hearing grossly normal bilaterally and external ears normal General nose exam: Normal external nose present, no nasal discharge noted and no epistaxis Face and sinus: Yes normal facial exam, No abrasion and No laceration Mouth: Normal oral and palatal mucosa present, no drooling and no muffled voice Eyes General: appearance normal, both eyes and all related structures Periorbital: periorbital findings normal Eyelids: Yes eyelids normal Conjunctivae: conjunctivae normal Pupils: Equal, round and reactive pupils present EOM: EOMs intact bilaterally Neck Neck: Yes normal visual inspection, Yes full ROM and Yes no lymphadenopathy Chest Chest palpation & inspection: normal inspection of the chest Resp Effort & Inspection: normal respiratory effort and able to speak in complete sentences Auscultation: clear to auscultation bilaterally Cardio Rate: regular rate Rhythm: regular rhythm GI Inspection: Yes normal to inspection Neuro General: patient oriented x3 and moves all extremities Cranial nerves: Yes Equal, round and reactive pupils present Cognition (Neuro): normal cognition Motor exam (neuro): 5/5 motor strength present throughout Sensory Exam: Normal double simultaneous stimulation for sensation Coordination: [id number] test normal Extrem General: Yes normal to inspection, Yes full ROM and Yes capillary refill normal Psych Appearance: grossly normal Mental Status: mental status grossly normal Affect: normal affect Attitude: cooperative Thought process: Normal thought process present Thought content: Normal thought content present Insight: Good insight present (Psych) Course Course Course Narrative: This is a rapid medical exam: Additional HPI, ROS, PE not included below will be deferred to primary provider. Patient is a 73-year-old female presenting to the emergency department with complaint of cough and shortness of breath for the past 3 days. Daughter states symptoms have been present for one week. Patient also complains of chest and upper back pain which she feels is related to coughing. Daughter states symptoms began with vomiting. Patient reports eating and drinking normally. Plan: swab for flu, Covid, CXR, EKG Medications Administered Discontinued Medications Generic Name Dose Route Start Last Admin Trade Name Freq PRN Reason Stop Dose Admin Albuterol Sulfate 2.5 mg/ 5 mg 07/13/23 20:35 07/13/23 20:38 Albuterol Sulfate 2.5 mg INHALE 07/13/23 20:36 5 mg ONCE ONE Administration Albuterol Sulfate 2.5 mg 07/13/23 21:54 07/13/23 21:57 Albuterol Sulfate (0.083%) 2.5 Mg/3 Ml Vial.Neb INHALE 07/13/23 21:55 2.5 mg ONCE ONE Administration Albuterol Sulfate 2.5 mg/ 0 mg 07/13/23 19:49 07/13/23 19:56 Albuterol/Ipratropium 3 ml INHALE 07/13/23 19:50 2.5 dose ONCE ONE Administration Medical Decision Making Medical Decision Making [facility] Narrative: Patient is a 73 year old assigned female at with a history of CAD, NSTEMI, DM, and asthma presenting to the emergency department today with a cough and fatigue. Patient's physical exam was unremarkable. Patient's blood work showed an elevated glucose level and a mildly elevated BNP but was otherwise unremarkable. Patient's EKG was unremarkable. Patient's chest x-ray showed no acute process. Patient's clinical presentation is most consistent with hyperglycemia and a URI. Given the patient's uncontrolled diabetes, will not treat URI with corticosteroids. Patient's clinical presentation is not consistent with a cardiac pathology. I explained my physical exam findings as well as all test results to the patient and the patient's daughter. I answered all questions asked by the patient and the patient's daughter. I stressed the importance of the patient taking her medication as prescribed. I stressed the importance of the patient following up with her primary care provider. I stressed the importance of the patient returning to the emergency department immediately if her symptoms were to worsen or if she were to develop any dizziness, shortness of breath, difficulty breathing, chest pain, blurry vision, loss of vision, nausea, vomiting, abdominal pain, fever, chills, back pain, or any other complaints. Patient and the patient's daughter verbalized agreement and understanding with this treatment plan and discharge. Differential Diagnosis Differential Diagnoses: The differential diagnosis associated with the presentation includes URI Hyperglycemia STEMI NSTEMI Admission/Observation Consideration of admission/observation: Escalation of care including admission/observation considered Patient would have been admitted to the hospital had her work up had any findings where hospital admission was appropriate and her clinical presentation warranted hospital admission. Lab Data [facility] Lab Attestation statement: I reviewed the patient's lab results. My interpretation of these results are in the [facility] Rationale portion of this note. 07/13/23 19:54 07/13/23 19:53 Labs: Lab Results 07/13/23 07/13/23 07/13/23 Range/Units 17:05 19:53 19:54 WBC 6.5 (4.8-10.8) X10*3/uL RBC 2.97 L (4.20-5.50) X10*6/uL Hgb 8.4 L (12.0-16.0) g/dl Hct 26.3 L (37.0-47.0) % MCV 88.6 (80.0-98.0) fL MCH 28.3 (27.0-33.0) pg MCHC 31.9 (31.0-35.0) g/dl RDW 14.4 (11.0-16.0) % Plt Count 314 (160-400) X10*3/uL MPV 10.3 (9.4-12.3) fL Immature Gran % (Auto) 0.3 (0.0-0.4) % Neut % (Auto) 60.3 (45-73) % Lymph % (Auto) 25.2 (20-40) % [place] % (Auto) 9.4 (2-11) % Eos % (Auto) 4.0 (0-4) % Baso % (Auto) 0.8 (0-2) % Lymph # (Auto) 1.6 (1.2-4.9) X10*3/uL [place] # (Auto) 0.6 (0.1-1.2) X10*3/uL Eos # (Auto) 0.3 (0.0-0.4) X10*3/uL Baso # (Auto) 0.1 (0.0-0.2) X10*3/uL Abs Immat Gran (auto) 0.02 (0.00-0.03) X10*3/uL Absolute Neuts (auto) 3.9 (2.0-8.3) x10*3/uL Absolute Nucleated RBC 0.000 (0.0-0.012) X10*3/uL Nucleated RBC % (auto) 0.0 (0.0-0.2) /100WBC Sodium 139 (135-145) mmol/L Potassium 3.8 (3.3-5.1) mmol/L Chloride 105 (96-108) mmol/L Carbon Dioxide 23 (22-29) mmol/L Anion Gap 15 (12-20) BUN 9 (9-16) mg/dL Creatinine 0.97 (0.5-1.4) mg/dL Estim Creat Clear Calc 48.7 Estimated GFR 56 Random Glucose 423 H* (60-115) mg/dL Calcium 8.7 D (8.4-10.2) mg/dL Total Bilirubin 0.3 (0.0-1.0) mg/dL AST 21 (5-31) U/L ALT 18 (0-31) U/L Alkaline Phosphatase 88 (39-117) U/L Troponin I High Sens 7.1 (<3.5-17.0) ng/L B-Natriuretic Peptide 148 H (<100) pg/mL Total Protein 6.3 L (6.5-8.0) g/dL Albumin 3.5 (3.5-5.0) g/dL COVID-19 (LARA) Negative (Negative) COVID-19 Clin Com See Note Influenza Type A (CORNELIUS) Negative (Negative) Influenza Type B (CORNELIUS) Negative (Negative) Influenza A & B Note See Note 07/13/23 Range/Units 22:00 WBC (4.8-10.8) X10*3/uL RBC (4.20-5.50) X10*6/uL Hgb (12.0-16.0) g/dl Hct (37.0-47.0) % MCV (80.0-98.0) fL MCH (27.0-33.0) pg MCHC (31.0-35.0) g/dl RDW (11.0-16.0) % Plt Count (160-400) X10*3/uL MPV (9.4-12.3) fL Immature Gran % (Auto) (0.0-0.4) % Neut % (Auto) (45-73) % Lymph % (Auto) (20-40) % [place] % (Auto) (2-11) % Eos % (Auto) (0-4) % Baso % (Auto) (0-2) % Lymph # (Auto) (1.2-4.9) X10*3/uL [place] # (Auto) (0.1-1.2) X10*3/uL Eos # (Auto) (0.0-0.4) X10*3/uL Baso # (Auto) (0.0-0.2) X10*3/uL Abs Immat Gran (auto) (0.00-0.03) X10*3/uL Absolute Neuts (auto) (2.0-8.3) x10*3/uL Absolute Nucleated RBC (0.0-0.012) X10*3/uL Nucleated RBC % (auto) (0.0-0.2) /100WBC Sodium (135-145) mmol/L Potassium (3.3-5.1) mmol/L Chloride (96-108) mmol/L Carbon Dioxide (22-29) mmol/L Anion Gap (12-20) BUN (9-16) mg/dL Creatinine (0.5-1.4) mg/dL Estim Creat Clear Calc Estimated GFR Random Glucose (60-115) mg/dL Calcium (8.4-10.2) mg/dL Total Bilirubin (0.0-1.0) mg/dL AST (5-31) U/L ALT (0-31) U/L Alkaline Phosphatase (39-117) U/L Troponin I High Sens 7.5 (<3.5-17.0) ng/L B-Natriuretic Peptide (<100) pg/mL Total Protein (6.5-8.0) g/dL Albumin (3.5-5.0) g/dL COVID-19 (LARA) (Negative) COVID-19 Clin Com Influenza Type A (CORNELIUS) (Negative) Influenza Type B (CORNELIUS) (Negative) Influenza A & B Note Independent Interpretation I performed an independent interpretation of an: EKG and Plain X-Ray Interpretation: My interpretation is in agreement with the radiologist's impression of this imaging study. - EXAMINATION: CHEST 2 VIEWS CLINICAL INFORMATION: cough. COMPARISON: 05/11/2023. TECHNIQUE: PA and lateral views of the chest obtained. FINDINGS: The lungs are well expanded. No focal infiltrate, effusion, edema, or pneumothorax. Tiny calcified granuloma in the left upper lung zone unchanged from multiple prior studies. Cardiac and mediastinal silhouettes are within normal limits for technique. No acute bony abnormality seen XR/XR chest 2V IMPRESSION: No evidence of acute disease Dictated By: Nilo Ellsworth MD Signed By: Electronically signed by Niol Ellsworth MD 07/13/23 1817 - Vent. Rate: 098 BPM Atrial Rate: 098 BPM P-R Int: 126 ms QRS Dur: 076 ms QT Int: 374 ms P-R-T Axes: 052 011 069 degrees QTc Int: 477 ms Normal sinus rhythm Nonspecific ST and T wave abnormality Prolonged QT Abnormal ECG When compared with ECG of 11-MAY-2023 03:47, T wave inversion no longer evident in Inferior leads Nonspecific T wave abnormality, worse in Anterolateral leads DD/ 1700 Radiology Impression Discussion of test interpretation with radiology: I have reviewed the radiologist's reading. Independent Historian Clinical information obtained from an independent historian. History obtained from or confirmed by: Other (patient's daughter provided additional history and confirmed the history provided by the patient.) Chronic Conditions Patient?s care impacted by: Diabetes Discharge Plan Discharge Clinical Impression: Hyperglycemia, URI (upper respiratory infection) Patient Disposition: Home, Self-Care Instructions: Upper Respiratory Infection (DC), Diabetic Hyperglycemia (ED) Additional Instructions: Follow up with your primary care provider and your ad compositor. Return to the emergency department immediately if your symptoms worsen or if you develop any dizziness, shortness of breath, difficulty breathing, chest pain, blurry vision, loss of vision, nausea, vomiting, abdominal pain, fever, chills, back pain, or any other complaints. Khoi un seguimiento con velásquez proveedor de atenci?n primaria y velásquez endocrin?logo. Regrese al departamento de emergencias inmediatamente si tj s?ntomas empeoran o si presenta mareos, dificultad para respirar, dificultad para respirar, dolor en el pecho, visi?n borrosa, p?rdida de la visi?n, n?useas, v?mitos, dolor abdominal, fiebre, escalofr?os, dolor de espalda o cualquier otras quejas. Prescriptions: No Action ezetimibe [Zetia] 10 mg tablet 10 mg PO DAILY Qty: 90 0RF gabapentin 300 mg capsule 300 mg PO BEDTIME Qty: 30 6RF cholecalciferol (vitamin D3) 50 mcg (2,000 unit) capsule 50 mcg PO DAILY 90 Days Qty: 90 3RF tolterodine 2 mg capsule,extended release 24hr 4 mg PO DAILY 90 Days Qty: 180 1RF metoprolol tartrate 100 mg tablet 100 mg PO BID Qty: 180 3RF (DME) lancets 33 gauge misc See Rx Instructions .ROUTE .MEDSUPPLY Qty: 100 11RF Rx Instructions: As directed twice a day (DME) adult pull ups LARGE See Rx Instructions .Route .MEDSUPPLY Qty: 180 0RF Rx Instructions: As directed Brilinta 90 mg tablet 90 mg PO BID Qty: 60 4RF aspirin 81 mg tablet,delayed release (DR/EC) 81 mg PO DAILY 90 Days Qty: 90 3RF (DME) OneTouch Verio test strips Strip See Rx Instructions .ROUTE .MEDSUPPLY Qty: 50 11RF Rx Instructions: As directed twice a day, fasting am and at bedtime fluticasone propion-salmeterol [Wixela Inhub] 250-50 mcg/dose blister with device 1 ea PO BID Qty: 60 0RF losartan 50 mg tablet 50 mg PO DAILY Qty: 30 2RF albuterol sulfate 90 mcg/actuation HFA aerosol inhaler 2 puff inhalation Q4-6H PRN (Reason: shortness of breath or wheezing) Qty: 6.7 0RF amlodipine 5 mg tablet 5 mg PO DAILY (DME) Altera Nebulizer System Misc See Rx Instructions .ROUTE .MEDSUPPLY Qty: 1 0RF Rx Instructions: As directed updraft Q 4 hours prn with albuterol albuterol sulfate 2.5 mg /3 mL (0.083 %) solution for nebulization 2.5 mg continuous nebulization Q4-6H PRN (Reason: bronchospasm) Qty: 180 3RF (DME) blood pressure monitor [Blood Pressure Kit] Kit See Rx Instructions .ROUTE .MEDSUPPLY Qty: 1 0RF Rx Instructions: As directed atorvastatin 40 mg tablet 40 mg PO BEDTIME Qty: 90 1RF metformin 500 mg tablet 1,000 mg PO BID 30 Days Qty: 120 11RF Ozempic 0.25 mg or 0.5 mg (2 mg/3 mL) pen injector 0.5 mg subcut QWEEK Qty: 3 4RF Citrucel 500 mg tablet 500 mg PO DAILY docusate sodium 100 mg capsule 100 mg PO BEDTIME Qty: 90 3RF pantoprazole 40 mg tablet,delayed release (DR/EC) 40 mg PO BID Qty: 180 2RF insulin glargine [Lantus Solostar U-100 Insulin] 100 unit/mL (3 mL) insulin pen 18 unit subcut BEDTIME Referrals: Marquez,Junior Galarza MD [Primary Care Provider] - Interventions: ED Discharge Assessment Last Done: 07/13/23 22:53 Discharge Date/Time: 07/13/23 22:54 Print Language: Kiswahili
--- NOTE | 2023-07-13 16:31 | ECG_ITS ---
Test Reason : SOB Blood Pressure : / mmHG Vent. Rate : 098 BPM Atrial Rate : 098 BPM P-R Int : 126 ms QRS Dur : 076 ms QT Int : 374 ms P-R-T Axes : 052 011 069 degrees QTc Int : 477 ms Normal sinus rhythm Nonspecific ST and T wave abnormality Abnormal ECG When compared with ECG of 11-MAY-2023 03:47, T wave inversion no longer evident in Inferior leads Nonspecific T wave abnormality, worse in Anterolateral leads ST more depressed Lateral leads Referred By: Anabela Acevedo Electronically Signed By:HEMAL FLORES MD
[2023-07-13 17:30] LABS: COVID-19 Test Negative (Negative); IDNOW Serial# 08D9AD1C; IDNOW Serial# BCCEAD1C; Influenza A Negative (Negative); Influenza B2 Negative (Negative)
[2023-07-13 19:30] VITALS: BP 164/64; PULSE 96; RESP 18; O2SAT 98
[2023-07-13] MEDS: Albuterol Sulfate 2.5 MG, Albuterol/Iprat 2.5/0.5MG 3 ML 3 ML INHALE (19:56)
[2023-07-13 19:58] VITALS: PULSE 88; RESP 18; O2SAT 96
[2023-07-13 20:00] LABS: MANUAL DIFF FLAG NO
[2023-07-13 20:07] LABS: Basophils Absolute Auto 0.1 X10*3/uL (0.0-0.2); Basophils Percent Auto 0.8 % (0-2); Eosinophils Absolute Auto 0.3 X10*3/uL (0.0-0.4); Hematocrit 26.3 % (37.0-47.0); Hemoglobin 8.4 g/dl (12.0-16.0); Imm Gran Abs Auto 0.02 X10*3/uL (0.00-0.03); Imm Gran Pct Auto 0.3 % (0.0-0.4); Lymphocytes Absolute Auto 1.6 X10*3/uL (1.2-4.9); Lymphocytes Percent Auto 25.2 % (20-40); Mean Corpuscular HGB Conc 31.9 g/dl (31.0-35.0); Mean Corpuscular Hemoglobin 28.3 pg (27.0-33.0); Mean Corpuscular Volume 88.6 fL (80.0-98.0); Mean Platelet Volume 10.3 fL (9.4-12.3); Monocytes Absolute Auto 0.6 X10*3/uL (0.1-1.2); Monocytes Percent Auto 9.4 % (2-11); Neutrophils Absolute Auto 3.9 x10*3/uL (2.0-8.3); Neutrophils Percent Auto 60.3 % (45-73); Platelet Count 314 X10*3/uL (160-400); Red Blood Count 2.97 X10*6/uL (4.20-5.50); Red Cell Distribution Width 14.4 % (11.0-16.0); White Blood Count 6.5 X10*3/uL (4.8-10.8)
--- NOTE | 2023-07-13 20:21 | PC.NURSE ---
Pt received a neb with RT. Crackles heard at bases bilaterally after tx. Pt reporting a 6/10 h/a. Pt aware of plan.
[2023-07-13 20:27] LABS: B Type Natriuretic Peptide 148 pg/mL (<100)
[2023-07-13 20:29] LABS: Troponin-I High Sensitivity 7.1 ng/L (<3.5-17.0)
[2023-07-13 20:35] LABS: Alanine Aminotransferase 18 U/L (0-31); Albumin Level 3.5 g/dL (3.5-5.0); Alkaline Phosphatase 88 U/L (39-117); Anion Gap 15 (12-20); Aspartate Amino Transferase 21 U/L (5-31); Bilirubin Total 0.3 mg/dL (0.0-1.0); Blood Urea Nitrogen 9 mg/dL (9-16); Calcium 8.7 mg/dL (8.4-10.2); Carbon Dioxide 23 mmol/L (22-29); Chloride 105 mmol/L (96-108); Creatinine Clr Calc Pharmacy 48.7; Estimated Glomerular Filt Rate 56; Glucose Random 423 mg/dL (60-115); Potassium 3.8 mmol/L (3.3-5.1); Sodium 139 mmol/L (135-145); Total Protein 6.3 g/dL (6.5-8.0)
[2023-07-13] MEDS: Albuterol Sulfate 2.5 MG, Albuterol Sulfate (0.083%) 2.5 MG 5 MG INHALE (20:38)
[2023-07-13 20:40] VITALS: PULSE 95; RESP 18; O2SAT 98
--- NOTE | 2023-07-13 21:00 | PC.NURSE ---
POC 423, Pt reports being taken off Trulicity d/t side effects vomiting and ABD pain and not being prescribed insulin. Reports next endo mark. in December 2023, provider LEOBARDO Talbot made aware.
[2023-07-13] MEDS: Albuterol Sulfate (0.083%) 2.5 MG/3 ML VIAL.NEB INHALE (21:57)
[2023-07-13 21:58] VITALS: PULSE 95; RESP 18; O2SAT 98
[2023-07-13 22:27] LABS: Troponin-I High Sensitivity 7.5 ng/L (<3.5-17.0)
== END 2023-07-13 22:54 | disposition home or self-care (01) ==
PROVIDERS: Physician Assistant Medical; Registered Nurse Emergency; Emergency Provider Emergency Medicine; PCP Internal Medicine
DX: J06.9 Acute upper respiratory infection, unspecified (principal); R05.9 Cough, unspecified; R42 Dizziness and giddiness; R53.83 Other fatigue; R06.02 Shortness of breath; I10 Essential (primary) hypertension; I25.10 Atherosclerotic heart disease of native coronary artery without angina pectoris; E11.65 Type 2 diabetes mellitus with hyperglycemia; Z11.52 Encounter for screening for COVID-19; Z20.822 Contact with and (suspected) exposure to COVID-19; Z79.899 Other long term (current) drug therapy; Z79.4 Long term (current) use of insulin; Z87.891 Personal history of nicotine dependence; Z79.85 Long-term (current) use of injectable non-insulin antidiabetic drugs
CPT/HCPCS: 36415; 71046; 80053; 83880; 84484; 85025; 87502; 87635; 93005; 94640; 99285

== ENCOUNTER 2023-08-13 10:51 | Outpatient (REF) | payer OTHER, SELFPAY ==
[2023-07-31 10:06] VITALS: BP 142/70; BP 152/84; BMI 31.9
[2023-08-13 11:13] LABS: MANUAL DIFF FLAG NO
[2023-08-13 11:36] LABS: Basophils Absolute Auto 0.1 X10*3/uL (0.0-0.2); Basophils Percent Auto 0.9 % (0-2); Eosinophils Absolute Auto 0.3 X10*3/uL (0.0-0.4); Eosinophils Percent Auto 2.8 % (0-4); Hematocrit 24.8 % (37.0-47.0); Hemoglobin 7.5 g/dl (12.0-16.0); Imm Gran Abs Auto 0.05 X10*3/uL (0.00-0.03); Imm Gran Pct Auto 0.6 % (0.0-0.4); Lymphocytes Absolute Auto 1.3 X10*3/uL (1.2-4.9); Lymphocytes Percent Auto 14.9 % (20-40); Mean Corpuscular HGB Conc 30.2 g/dl (31.0-35.0); Mean Corpuscular Volume 86.1 fL (80.0-98.0); Mean Platelet Volume 10.6 fL (9.4-12.3); Monocytes Absolute Auto 0.9 X10*3/uL (0.1-1.2); Monocytes Percent Auto 10.1 % (2-11); Neutrophils Absolute Auto 6.4 x10*3/uL (2.0-8.3); Neutrophils Percent Auto 70.7 % (45-73); Platelet Count 355 X10*3/uL (160-400); Red Blood Count 2.88 X10*6/uL (4.20-5.50); Red Cell Distribution Width 15.2 % (11.0-16.0)
[2023-08-13 12:04] LABS: Estimated Average Glucose 229 mg/dL; Hemoglobin A1c % 9.6 % (<6.0)
[2023-08-13 12:22] LABS: Alanine Aminotransferase 18 U/L (0-31); Albumin Level 3.6 g/dL (3.5-5.0); Alkaline Phosphatase 77 U/L (39-117); Anion Gap 13 (12-20); Aspartate Amino Transferase 23 U/L (5-31); Bilirubin Total 0.5 mg/dL (0.0-1.0); Blood Urea Nitrogen 9 mg/dL (9-16); Calcium 8.8 mg/dL (8.4-10.2); Carbon Dioxide 24 mmol/L (22-29); Chloride 107 mmol/L (96-108); Estimated Glomerular Filt Rate > 60; Glucose Random 192 mg/dL (60-115); Magnesium 1.6 mg/dL (1.6-2.6); Phosphorus 3.9 mg/dL (2.7-4.5); Potassium 4.1 mmol/L (3.3-5.1); Sodium 140 mmol/L (135-145); Total Protein 6.4 g/dL (6.5-8.0)
[2023-08-13 12:28] LABS: Ferritin 8 ng/mL (10-250); Free T4 (Free Thyroxine) 1.02 ng/dL (0.71-1.85); Thyroid Stimulating Hormone 2.08 uIU/mL (0.32-4.0)
[2023-08-13 12:36] LABS: Appearance Urine Clear; Color Urine Yellow; Glucose Urine UA Negative (Negative); Leukocyte Esterase Urine Negative (Negative); Nitrite Urine Negative (Negative); PH 5.5 (5.0-9.0); Urine Blood Negative (Negative); Urine Ketones Negative (Negative); Urine Protein Negative (Neg-Trace)
[2023-08-13 12:49] LABS: Bacteria Urine Trace (None Seen); Hyaline Casts Urine 0-2 /LPF (0-2); RBC Urine 0-2 /HPF (0-2); WBC Urine 0-5 /HPF (0-5)
== END 2023-08-13 10:52 | disposition home or self-care (01) ==
LOC: HO.LAB 10:51
PROVIDERS: PCP Internal Medicine; Visit Provider Internal Medicine
DX: E11.65 Type 2 diabetes mellitus with hyperglycemia (principal)
CPT/HCPCS: 36415; 80053; 81001; 82728; 83036; 83735; 84100; 84439; 84443; 85025

== ENCOUNTER 2023-08-13 17:32 | Inpatient (IN) | payer OTHER, SELFPAY ==
[2023-07-31 10:06] VITALS: BP 142/70; BP 152/84; BMI 31.9
[2023-08-13 18:23] VITALS: BP 153/60; PULSE 91; RESP 14; TEMP 36.6; O2SAT 98; BMI 34.6
--- NOTE | 2023-08-13 18:30 | ED_ITS ---
HPI - General Adult General Chief complaint: Recheck/Abnormal Lab/Rx Stated complaint: abnormal labs Time Seen by Provider: 08/13/23 22:49 Source: patient Mode of arrival: ambulatory Limitations: no limitations History of Present Illness HPI narrative: 73 yo female with PMH of NSTEMI May 2023- currently on brilinta and baby aspirin, gastroparesis, HTN, DM, GERD, CAD, HLD, obesity, asthma, not on blood thinners states she has been tired since her heart attack. She denies CP/SOB and has not had black or bloody stools. MD complaint: low hemoglobin Onset (ago): unknown (looks as she if she has had a trend downward since July of 2023) Radiation: non-radiation Severity: mild Relieving factors: none Exacerbating factors: other (feels tired with exertion) Associated symptoms: denies other symptoms Treatments prior to arrival: none Related Data Home Medications Medication Instructions Recorded Confirmed insulin glargine 100 unit/mL (3 18 unit subcut BEDTIME 01/22/23 05/30/23 mL) subcutaneous pen (Lantus Solostar U-100 Insulin) methylcellulose (laxative) 500 mg 500 mg PO DAILY 06/06/23 tablet (Citrucel) Previous Rx's Medication Instructions Recorded albuterol sulfate 2.5 mg/3 mL 2.5 mg (3 mL) continuous 06/29/20 (0.083 %) solution for nebulization nebulization Q4-6H PRN bronchospasm #180 mL nebulizers (Altera Nebulizer #1 ea 06/29/20 System) albuterol sulfate 90 mcg/actuation 2 puff inhalation Q4-6H PRN 09/04/22 aerosol inhaler shortness of breath or wheezing #6.7 grams blood pressure monitor (Blood #1 ea 11/01/22 Pressure Kit) metformin 500 mg tablet 1,000 mg (2 x 500 mg) PO BID 30 01/01/23 days #120 caps gabapentin 300 mg capsule 300 mg PO BEDTIME #30 caps 02/15/23 cholecalciferol (vitamin D3) 50 50 mcg PO DAILY 90 days #90 caps 03/01/23 mcg (2,000 unit) capsule tolterodine 2 mg capsule,extended 4 mg (2 x 2 mg) PO DAILY 90 days 03/01/23 release 24 hr #180 caps metoprolol tartrate 100 mg tablet 100 mg PO BID #180 tabs 03/22/23 lancets 33 gauge #100 ea 05/08/23 adult pull ups #180 ea 05/09/23 atorvastatin 40 mg tablet 40 mg PO BEDTIME #90 tabs 05/18/23 docusate sodium 100 mg capsule 100 mg PO BEDTIME #90 caps 06/06/23 pantoprazole 40 mg tablet,delayed 40 mg PO BID #180 tabs 06/06/23 release aspirin 81 mg tablet,delayed 81 mg PO DAILY 90 days #90 tabs 06/11/23 release ticagrelor 90 mg tablet (Brilinta) 90 mg PO BID #60 tabs 06/11/23 semaglutide 0.25 mg or 0.5 mg (2 0.5 mg (0.736 mL) subcut QWEEK #3 06/13/23 mg/3 mL) subcutaneous pen injector mL (Actimagine) blood sugar diagnostic (OneTouch #50 ea 06/25/23 Verio test strips) losartan 50 mg tablet 50 mg PO DAILY #30 tabs 07/06/23 ezetimibe 10 mg tablet (Zetia) 10 mg PO DAILY #90 tabs 07/14/23 fluticasone 250 mcg-salmeterol 50 1 ea PO BID #60 ea 08/01/23 mcg/dose blistr powdr for inhalation (Jeredxela Inhub) amlodipine 5 mg tablet 5 mg PO DAILY #30 tabs 08/07/23 tizanidine 4 mg capsule 4 mg PO BEDTIME PRN muscle 08/09/23 spasticity #30 caps Allergies Allergy/AdvReac Type Severity Reaction Status Date / Time aspirin [Aspirin] Allergy Mild Abdominal Verified 07/13/23 16:32 Pain Penicillins Allergy Mild NAUSEA/STOMACH Verified 07/13/23 16:32 PAIN hydrochlorothiazide Allergy Unknown hypokalemia Verified 07/13/23 16:32 lisinopril Allergy Unknown ? swelling Verified 07/13/23 16:32 Wocnjjh-VCQ-DeT Reductase Allergy Unknown Muscle Verified 07/13/23 16:32 Inhibitor cramps ibuprofen [From Motrin] AdvReac Unknown Abdominal Verified 07/13/23 16:32 Pain Review of Systems 2 Review of Systems: Constitutional : No Fever, No Chills, pos Fatigue ENT/Mouth : No sore throat, No Rhinorrhea Eyes: No Eye Pain, No Swelling, No Redness Cardiovascular : No Chest Pain, No SOB, No Dyspnea on Exertion Respiratory : No Cough, No Sputum Gastrointestinal : No Nausea, No Vomiting, No Diarrhea, No abdominal Pain Genitourinary : No Dysuria, No Urinary Frequency, No Hematuria, Musculoskeletal : No joint pain, No Myalgias, No Joint Swelling Skin : No Skin Lesions, No rash Neuro : No Weakness, No Numbness, No Dizziness, no Headache Psych : No Anxiety/Panic, No Depression Heme/Lymph: No Bruising, No Bleeding,No Lymphadenopathy Endocrine : No Polyuria, No Polydipsia All other systems reviewed and are negative [facility] Past Medical History Attestation statement: The following information was validated with the patient. Source: old records reviewed Medical History Orthopnea Headache Lower extremity edema Urinary frequency Right shoulder pain Constipation Abdominal bloating Shoulder pain, right Hip pain, left Nasal congestion Chest pain NSTEMI (non-ST elevated myocardial infarction) Fall HLD (hyperlipidemia) Colon cancer screening Pleural effusion, right Nocturia more than twice per night Glaucoma Cataract of left eye Renal cyst Preop exam for internal medicine On beta kamryn at home Vitamin D deficiency Osteoporosis Restless leg syndrome Type 2 diabetes mellitus with diabetic polyneuropathy Tubal ligation evaluation Adrenal adenoma Pulmonary nodule Fracture of toe of left foot Positive MAGGIE (antinuclear antibody) Osteoarthritis of both knees Osteopenia Ulnar neuropathy Asthma GERD (gastroesophageal reflux disease) Obesity (BMI 30-39.9) Coronary artery disease Hypercholesterolemia Surgical History Hx of right cataract extraction History of esophagogastroduodenoscopy (EGD) Hx of colonoscopy History of breast biopsy History of tubal ligation History of laparoscopic cholecystectomy Family History Family History Mother HTN (hypertension) Diabetes Brother Lung cancer Sister Cancer, colon Daughter Uterine cancer Father Prostate cancer Social History Social History Household Members: Significant Other Household Members Other:: 2 Housing: House Are you a primary life care planner to a significant other at home: No Do you presently have visiting nurse or other home services: Yes (PRECISION AGRICULTURE SPECIALIST) Alcohol intake: never Patient Tobacco Use Status: Former Tobacco user Quit Date: quit years ago Tobacco use type: Cigarette Smoked in Last 30 Days: No e-Cigarette/Vaping Use: Former Use Second Hand Smoke Exposure: No Use of substances other than those prescribed or required for medical reasons: No Advance Directives: No Advance Directives Information Provided: Yes service: No Current occupational status: retired and disabled Cognitive needs: No Hearing needs: No Vision needs: Yes (glasses) Physical Exam ED Vital Signs: Vital Signs - 24 hr 08/13/23 18:23 08/13/23 20:33 08/14/23 00:06 Temperature 97.8 F 99.0 F 97.7 F Pulse Rate 91 103 H 92 Respiratory Rate 14 18 18 Blood Pressure 153/60 H 150/68 H 138/67 Pulse Oximetry 98 100 99 Oxygen Delivery Method Room Air Room Air Room Air 08/14/23 00:55 Temperature 98.1 F Pulse Rate 91 Respiratory Rate 15 Blood Pressure 138/55 L Pulse Oximetry Oxygen Delivery Method BMI result Body Mass Index 34.6 Appearance: Alert. Oriented X3. No acute distress. Eyes: Pupils equal, round and reactive to light. pale sclera ENT: Pharynx normal. Neck: Normal inspection. Neck supple. CVS: Normal heart rate and rhythm. Pulses normal. Respiratory: No respiratory distress. Breath sounds normal. Abdomen: Soft and nontender. Rectal: light brown stool Skin: Skin warm and dry. pale skin color. Normal skin turgor. Extremities: No lower extremity edema. No calf ttp Neuro: Oriented X 3. No motor deficit. No sensory deficit. Course Course Course Narrative: RME performed by Racquel Talbot PA-C. Patient is a 73 year old assigned female at presenting to the emergency department with a decreased hemoglobin sent in by her PCP. Labs ordered. Patient placed back in the waiting room pending room availability and results. Medications Administered Discontinued Medications Generic Name Dose Route Start Last Admin Trade Name Freq PRN Reason Stop Dose Admin Magnesium Sulfate 2 gm in 50 mls @ 25 mls/hr 08/13/23 22:49 08/13/23 23:20 Magnesium Sulfate/H2o IV 08/14/23 00:48 25 mls/hr ONCE ONE Administration Sodium Chloride 100 mls @ 100 mls/hr 08/13/23 23:08 08/14/23 00:55 Ns IV 08/14/23 00:07 100 mls/hr ONCE ONE Administration Pantoprazole Sodium 40 mg 08/13/23 23:15 08/13/23 23:27 Pantoprazole Sodium 40 Mg/10 Ml Vial IVPUSH 08/13/23 23:16 40 mg ONCE ONE Administration Medical Decision Making Medical Decision Making [facility] Narrative: 73 yo female with PMH of NSTEMI May 2023- currently on brilinta and baby aspirin, gastroparesis, HTN, DM, GERD, CAD, HLD, obesity, asthma, not on blood thinners here with downward trend of H/H but denies GIB symptoms - per daughter she has remote history of lower GIB. Her VS are stable this seems to be a downward trend given labs over the last month. Will keep NPO at midnight, start on IV protonix given recent MS and stent transfuse 1 UPRBC and keep overnight for GI consult. Differential Diagnosis Differential Diagnoses: The differential diagnosis associated with the presentation includes upper GI bleed, anemia Admission/Observation Consideration of admission/observation: Escalation of care including admission/observation considered keep overnight for GI consult Consult Healthcare Provider Management of the patient was discussed with: Hospitalist (will admit) Lab Data [facility] Lab Attestation statement: I reviewed the patient's lab results. 08/13/23 19:34 08/13/23 19:34 Labs: Lab Results 08/13/23 08/13/23 Range/Units 19:34 23:22 WBC 7.4 (4.8-10.8) X10*3/uL RBC 3.00 L (4.20-5.50) X10*6/uL Hgb 7.7 L (12.0-16.0) g/dl Hct 25.5 L (37.0-47.0) % MCV 85.0 (80.0-98.0) fL MCH 25.7 L (27.0-33.0) pg MCHC 30.2 L (31.0-35.0) g/dl RDW 15.2 (11.0-16.0) % Plt Count 369 (160-400) X10*3/uL MPV 10.3 (9.4-12.3) fL Immature Gran % (Auto) 0.4 (0.0-0.4) % Neut % (Auto) 62.9 (45-73) % Lymph % (Auto) 22.9 (20-40) % [place] % (Auto) 9.5 (2-11) % Eos % (Auto) 3.3 (0-4) % Baso % (Auto) 1.0 (0-2) % Lymph # (Auto) 1.7 (1.2-4.9) X10*3/uL [place] # (Auto) 0.7 (0.1-1.2) X10*3/uL Eos # (Auto) 0.2 (0.0-0.4) X10*3/uL Baso # (Auto) 0.1 (0.0-0.2) X10*3/uL Abs Immat Gran (auto) 0.03 (0.00-0.03) X10*3/uL Absolute Neuts (auto) 4.6 (2.0-8.3) x10*3/uL Absolute Nucleated RBC 0.000 (0.0-0.012) X10*3/uL Nucleated RBC % (auto) 0.0 (0.0-0.2) /100WBC PT 11.0 L (11.1-13.3) SEC INR 0.9 (0.9-1.1) APTT 25.5 L (26.0-36.4) SEC Sodium 142 (135-145) mmol/L Potassium 3.6 (3.3-5.1) mmol/L Chloride 106 (96-108) mmol/L Carbon Dioxide 27 (22-29) mmol/L Anion Gap 13 (12-20) BUN 9 (9-16) mg/dL Creatinine 0.92 (0.5-1.4) mg/dL Estim Creat Clear Calc 49.6 Estimated GFR 60 Random Glucose 285 H (60-115) mg/dL Calcium 8.9 (8.4-10.2) mg/dL Magnesium 1.4 L* (1.6-2.6) mg/dL Iron 18 L (30-160) mcg/dL TIBC 381 (228-428) mcg/dL % Saturation 5 L (15-50) % Unsat Iron Binding 363 ug/dL Total Bilirubin 0.4 (0.0-1.0) mg/dL AST 28 (5-31) U/L ALT 20 (0-31) U/L Alkaline Phosphatase 87 (39-117) U/L Total Protein 6.9 (6.5-8.0) g/dL Albumin 3.9 (3.5-5.0) g/dL Stool Occult Blood NEGATIVE (NEGATIVE) Blood Type A Positive Antibody Screen NEGATIVE Crossmatch See Detail Independent Interpretation I performed an independent interpretation of an: EKG Interpretation: Rate: 92 Rhythm: NSR [place]: left Normal P waves. Normal YUE. Normal QRS complex. ST T wave : nonspecific lateral leads, no DANIAL, nonspecific ST T wave changes ant leads qTC: normal prior studies: unchanged no acute ischemia The study has been interpreted contemporaneously by me. . Radiology Impression Discussion of test interpretation with radiology: I have reviewed the radiologist's reading. Independent Historian Clinical information obtained from an independent historian. History obtained from or confirmed by: Other (daughter) External Record Review External record reviewed: Inpatient record Discharge Plan Discharge Clinical Impression: Hypomagnesemia Anemia Qualifiers: Anemia type: unspecified type Qualified Code(s): D64.9 - Anemia, unspecified Patient Disposition: Admitted As Inpatient
[2023-08-13 19:41] LABS: MANUAL DIFF FLAG NO
[2023-08-13 19:43] LABS: Basophils Absolute Auto 0.1 X10*3/uL (0.0-0.2); Eosinophils Absolute Auto 0.2 X10*3/uL (0.0-0.4); Eosinophils Percent Auto 3.3 % (0-4); Hematocrit 25.5 % (37.0-47.0); Hemoglobin 7.7 g/dl (12.0-16.0); Imm Gran Abs Auto 0.03 X10*3/uL (0.00-0.03); Imm Gran Pct Auto 0.4 % (0.0-0.4); Lymphocytes Absolute Auto 1.7 X10*3/uL (1.2-4.9); Lymphocytes Percent Auto 22.9 % (20-40); Mean Corpuscular HGB Conc 30.2 g/dl (31.0-35.0); Mean Corpuscular Hemoglobin 25.7 pg (27.0-33.0); Mean Platelet Volume 10.3 fL (9.4-12.3); Monocytes Absolute Auto 0.7 X10*3/uL (0.1-1.2); Monocytes Percent Auto 9.5 % (2-11); Neutrophils Absolute Auto 4.6 x10*3/uL (2.0-8.3); Neutrophils Percent Auto 62.9 % (45-73); Platelet Count 369 X10*3/uL (160-400); Red Cell Distribution Width 15.2 % (11.0-16.0); White Blood Count 7.4 X10*3/uL (4.8-10.8)
[2023-08-13 19:51] LABS: INTERNATIONAL NORM RATIO 0.9 (0.9-1.1)
[2023-08-13 19:53] LABS: Partial Thromboplastin Time 25.5 SEC (26.0-36.4)
[2023-08-13 19:58] LABS: Alanine Aminotransferase 20 U/L (0-31); Albumin Level 3.9 g/dL (3.5-5.0); Alkaline Phosphatase 87 U/L (39-117); Anion Gap 13 (12-20); Aspartate Amino Transferase 28 U/L (5-31); Bilirubin Total 0.4 mg/dL (0.0-1.0); Blood Urea Nitrogen 9 mg/dL (9-16); Calcium 8.9 mg/dL (8.4-10.2); Carbon Dioxide 27 mmol/L (22-29); Chloride 106 mmol/L (96-108); Creatinine Clr Calc Pharmacy 49.6; Estimated Glomerular Filt Rate 60; Glucose Random 285 mg/dL (60-115); Magnesium 1.4 mg/dL (1.6-2.6); Potassium 3.6 mmol/L (3.3-5.1); Sodium 142 mmol/L (135-145); Total Protein 6.9 g/dL (6.5-8.0)
[2023-08-13 20:33] VITALS: BP 150/68; PULSE 103; RESP 18; TEMP 37.2; O2SAT 100
--- NOTE | 2023-08-13 22:49 | ECG_ITS ---
Test Reason : HYPOMAGNASEMIA Blood Pressure : / mmHG Vent. Rate : 092 BPM Atrial Rate : 092 BPM P-R Int : 124 ms QRS Dur : 082 ms QT Int : 376 ms P-R-T Axes : 053 001 099 degrees QTc Int : 464 ms Artifact in tracing Sinus rhythm with occasional Premature ventricular complexes Nonspecific ST and T wave abnormality Abnormal ECG When compared with ECG of 13-JUL-2023 17:00, Premature ventricular complexes are now Present Referred By: Melissa Muir Electronically Signed By:MARIBEL CHAMBERS
[2023-08-13] MEDS: Magnesium Sulfate/H2O 2 GM/50 ML PIGGYBACK IV (23:20)
[2023-08-13] MEDS: Pantoprazole Sodium 40 MG/10 ML VIAL IVPUSH (23:27)
[2023-08-13 23:34] LABS: OBS Int Ctl Valid YES; OBS1 NEGATIVE (NEGATIVE)
[2023-08-13 23:37] LABS: Iron 18 mcg/dL (30-160); Percent Iron Saturation 5 % (15-50); Total Iron Binding Capacity 381 mcg/dL (228-428); Unsaturated Iron Binding 363 ug/dL
[2023-08-14] VITALS (11 sets, daily range): BP systolic 129–161; BP diastolic 50–97; PULSE 86–112; RESP 14–21; TEMP 36.5–36.9; O2SAT 97–100
--- NOTE | 2023-08-14 01:02 | PC.NURSE ---
One unit of RBC started. VSS. Pt tolerating well. Denies chest pain, sob, pain. Monitoring ongoing.
--- NOTE | 2023-08-14 01:13 | PC.NURSE ---
Pt aox4 resting at the bedside. RBC transfusing. VSS. NSR on monitor. Denies cp, sob, or pain. No sign of a blood reaction. Monitoring ongoing.
[2023-08-14 01:26] LABS: Folate 11.9 ng/mL (> or = 4.0); Vitamin B12 407 pg/mL (200-900)
--- NOTE | 2023-08-14 02:34 | P.HPHOSP_ITS ---
History of Present Illness Date of Service: 08/14/23 Attending physician on admission: Wan Carmichael Chief Complaint: Generalized weakness and easy fatigability x1 month Patient is a 73 year old female with PMH of CAD s/p recent NSTEMI and s/p PCI with stent placement now on Brilinta & aspirin, Type 2 diabetes mellitus (on Insulin), diabetic gastroparesis, hypertension, hyperlipidemia, asthma, obesity, GERD who was sent to the emergency room by her primary care provider for evaluation after she was found to be anemic on blood work done this afternoon. She reports feeling weak and with easy fatigability. She has not noticed any blood in her stool or urine but reports a history of chronic constipation with previous episodes of hemorrhoidal bleed though has not noticed any recently. She denies any associated chest pain or shortness of breath. Significant findings on blood tests done in the ED include anemia with a hemoglobin of 7.7 mg/dl and hematocrit of 25.5%, low serum magnesium at 1.4 (repleted), elevated blood sugar (285 mg/dl), low iron (18 mcg/dl) and % saturation (5%) with normal TIBC (381 mcg/dl). A stool for occult test done in the ED was negative. When I saw her, she was receiving her first unit of PRBC while in the ED. Admission was requested for overnight observation and transfusion. Review of Systems 2 Review of Systems: Yes all other systems are reviewed and are negative [facility] Medical History Orthopnea Headache Lower extremity edema Urinary frequency Right shoulder pain Constipation Abdominal bloating Shoulder pain, right Hip pain, left Nasal congestion Chest pain NSTEMI (non-ST elevated myocardial infarction) Fall HLD (hyperlipidemia) Colon cancer screening Pleural effusion, right Nocturia more than twice per night Glaucoma Cataract of left eye Renal cyst Preop exam for internal medicine On beta kamryn at home Vitamin D deficiency Osteoporosis Restless leg syndrome Type 2 diabetes mellitus with diabetic polyneuropathy Tubal ligation evaluation Adrenal adenoma Pulmonary nodule Fracture of toe of left foot Positive MAGGIE (antinuclear antibody) Osteoarthritis of both knees Osteopenia Ulnar neuropathy Asthma GERD (gastroesophageal reflux disease) Obesity (BMI 30-39.9) Coronary artery disease Hypercholesterolemia Functional capacity: independent ambulation Family History Mother HTN (hypertension) Diabetes Brother Lung cancer Sister Cancer, colon Daughter Uterine cancer Father Prostate cancer Surgical History Hx of right cataract extraction History of esophagogastroduodenoscopy (EGD) Hx of colonoscopy History of breast biopsy History of tubal ligation History of laparoscopic cholecystectomy Social History Household Members: Significant Other Household Members Other:: 2 Housing: House Are you a primary transitional care liaison to a significant other at home: No Do you presently have visiting nurse or other home services: Yes ([employer] SU[employer] PROFESSION[employer]) Alcohol intake: never Patient Tobacco Use Status: Former Tobacco user Quit Date: quit years ago Tobacco use type: Cigarette e-Cigarette/Vaping Use: Former Use Second Hand Smoke Exposure: No service: No Current occupational status: retired and disabled Cognitive needs: No Hearing needs: No Vision needs: Yes (glasses) Meds Allergies Allergy/AdvReac Type Severity Reaction Status Date / Time aspirin [Aspirin] Allergy Mild Abdominal Verified 07/13/23 16:32 Pain Penicillins Allergy Mild NAUSEA/STOMACH Verified 07/13/23 16:32 PAIN hydrochlorothiazide Allergy Unknown hypokalemia Verified 07/13/23 16:32 lisinopril Allergy Unknown ? swelling Verified 07/13/23 16:32 Aohwdck-UTL-DfA Reductase Allergy Unknown Muscle Verified 07/13/23 16:32 Inhibitor cramps ibuprofen [From Motrin] AdvReac Unknown Abdominal Verified 07/13/23 16:32 Pain Home Medications Medication Instructions Recorded Confirmed Last Taken Type insulin glargine 100 unit/mL (3 18 unit subcut BEDTIME 01/22/23 05/30/23 Unknown History mL) subcutaneous pen (Lantus Solostar U-100 Insulin) methylcellulose (laxative) 500 mg 500 mg PO DAILY 06/06/23 Unknown History tablet (Citrucel) Physical Exam 2 Vital Signs and Narrative: Vital Signs: Last Vital Signs Temp 98.0 F 08/14/23 01:13 Pulse 93 08/14/23 01:54 Resp 15 08/14/23 01:54 BP 132/50 L 08/14/23 01:54 Pulse Ox 99 08/14/23 01:54 O2 Del Method Room Air 08/14/23 01:54 BMI result Body Mass Index 34.6 General: Well nourished female in bed. Awake, alert and oriented x 4. No apparent distress Eyes: No pallor or jaundice. PERRLA, EOMI HENT: Moist oral mucus membranes. No oropharyngeal lesions. Neck: Supple. No cervical adenopathy. No JVD Cardiovascular: Regular rate and rhythm. Normal heart sounds. No murmurs, rubs or gallops. No JVD. No peripheral edema. Respiratory: Normal respiratory effort with no accessory muscle use. CTAB. Gastrointestinal: Abdomen is soft, non-tender, non-distended. NABS. No hepatosplenomegally Extremities: No edema. No calf tenderness. Good peripheral pulses Skin - Warm/Dry. No rashes. No motling. Capillary refill is < 2 seconds Neurological - AAOx4. Intact speech & cognition. Normal gait & balance. CN II - XII grossly intact but not individually tested. No motor or sensory deficits Hematologic: No bleeding. No ecchymosis. No swollen or tender lymph nodes. Psychiatric: Cooperative. Appropriate mood and affect . Results Labs 08/13/23 19:34 08/13/23 19:34 Labs: Laboratory Results - last 24 hr 08/13/23 08/13/23 08/14/23 19:34 23:22 00:11 MCV 85.0 MCH 25.7 L MCHC 30.2 L RDW 15.2 Plt Count 369 MPV 10.3 Immature Gran % (Auto) 0.4 Neut % (Auto) 62.9 Lymph % (Auto) 22.9 Sterling % (Auto) 9.5 Eos % (Auto) 3.3 Baso % (Auto) 1.0 Lymph # (Auto) 1.7 [place] # (Auto) 0.7 Eos # (Auto) 0.2 Baso # (Auto) 0.1 Abs Immat Gran (auto) 0.03 Absolute Neuts (auto) 4.6 Absolute Nucleated RBC 0.000 Nucleated RBC % (auto) 0.0 PT 11.0 L INR 0.9 APTT 25.5 L Anion Gap 13 Estim Creat Clear Calc 49.6 Estimated GFR 60 Random Glucose 285 H Calcium 8.9 Magnesium 1.4 L* Iron 18 L TIBC 381 % Saturation 5 L Unsat Iron Binding 363 Total Bilirubin 0.4 AST 28 ALT 20 Alkaline Phosphatase 87 Total Protein 6.9 Albumin 3.9 Vitamin B12 407 Folate 11.9 Stool Occult Blood NEGATIVE Blood Type A Positive Antibody Screen NEGATIVE Crossmatch See Detail Assessment and Plan (1) Anemia: Qualifiers: Anemia type: unspecified type Qualified Code(s): D64.9 - Anemia, unspecified Status: Acute (2) Hypomagnesemia: Status: Acute (3) Coronary artery disease: Qualifiers: Coronary Disease-Associated Artery/Lesion type: [place] artery [place] vs. transplanted heart: [place] heart Associated angina: without angina Qualified Code(s): I25.10 - Atherosclerotic heart disease of [place] coronary artery without angina pectoris Status: Acute (4) Hypercholesterolemia: Status: Acute (5) Type 2 diabetes mellitus with diabetic polyneuropathy: Qualifiers: Diabetes mellitus termite renewal inspector insulin use: with mcfp use Qualified Code(s): E11.42 - Type 2 diabetes mellitus with diabetic polyneuropathy; Z79.4 - manager intermediate (current) use of insulin Status: Acute Plan 73 year old female with PMH of CAD s/p recent NSTEMI and s/p PCI with stent placement and now on Brilinta and aspirin, Type 2 diabetes mellitus (on Insulin Lantus) with diabetic gastroparesis, hypertension, hyperlipidemia, asthma, obesity, GERD here with 1. Symptomatic iron deficiency anemia - admit and continue PRBC transfusion - check H/H in AM - consider further w/u to try identify source of bleeding - consider starting patient on Iron supplement 2. CAD - with recent STEMI for which she had PCI and stent placed - continue Brilinta and Aspirin for now - may need to stop if happens that the blood loss is in the GI tract 3, Type 2 diabetes mellitus - insulin requiring - resume Insulin Lantus 18 units at bedtime - start SSI coverage Total time managing care of this patient today: 55 minutes. Quality Stroke Does the patient have a stroke diagnosis?: No VTE Prior VTE?: No VTE Risk Level:: Medical - moderate - high VTE Device Contraindication: N/A - Device Ordered VTE Drug Contraindication: Treatment Not Indicated
[2023-08-14] MEDS: diphenhydrAMINE HCL 25 MG CAPSULE 50 MG PO (03:17)
--- NOTE | 2023-08-14 03:50 | PC.NURSE ---
Pt aox4 resting at the bedside. One unit or RBC's transfused. Pt reported mild body itchiness, MD aware, and pt given benadryl with improvement. VSS. Denies cp, sob, or pain. Pending bed assignment. Monitoring is ongoing.
[2023-08-14 05:55] LABS: Hematocrit 27.7 % (37.0-47.0); Hemoglobin 8.6 g/dl (12.0-16.0); Mean Corpuscular Hemoglobin 26.6 pg (27.0-33.0); Mean Corpuscular Volume 85.8 fL (80.0-98.0); Mean Platelet Volume 10.7 fL (9.4-12.3); Platelet Count 346 X10*3/uL (160-400); Red Blood Count 3.23 X10*6/uL (4.20-5.50); Red Cell Distribution Width 15.5 % (11.0-16.0); White Blood Count 9.6 X10*3/uL (4.8-10.8)
[2023-08-14 05:56] LABS: Immature Retic Fraction 24.1 % (3.0-15.9); Retic HGB Equivalent 24.9 pg (30.0-35.0); Reticulocyte Percent 1.9 % (0.5-1.8); Reticulocytes Absolute 0.061 X10*6/uL (0.026-0.095)
[2023-08-14 06:10] LABS: Anion Gap 14 (12-20); Blood Urea Nitrogen 11 mg/dL (9-16); Calcium 8.5 mg/dL (8.4-10.2); Carbon Dioxide 25 mmol/L (22-29); Chloride 105 mmol/L (96-108); Estimated Glomerular Filt Rate > 60; Glucose Random 250 mg/dL (60-115); Magnesium 1.8 mg/dL (1.6-2.6); Potassium 3.5 mmol/L (3.3-5.1); Sodium 140 mmol/L (135-145)
[2023-08-14 07:06] LABS: Glucose, Whole Blood 195 mg/dL (60-115)
[2023-08-14] MEDS: Insulin Lispro 100 UNIT/ML 3 ML VIAL SUBCUT ×3 (07:56→19:09)
[2023-08-14] MEDS: 0.9 % Sodium Chloride Flush 3 ML SYRINGE IVFLUSH ×3 (07:58→23:58)
--- NOTE | 2023-08-14 08:10 | PC.NURSE ---
pt complaining of ?bump on roof of her mouth that hurts when she breaths, causes pain into her nose. no cough, no congestion. pts lung sounds clear x3 - right base wet to auscultation. pt resting in bed, 20G in LAC intact. pt with no other complaints at this time.
--- NOTE | 2023-08-14 09:37 | P.CNGI_ITS ---
History of Present Illness Data of Consult Service Date: 08/14/23 Requesting physician: Bob Quezada Primary Care Provider: Junior Zayas MD HPI 73 year old Citizen Of [place] speaking female with CAD s/p recent NSTEMI and s/p PCI with stent placement now on Brilinta & aspirin, Type 2 diabetes mellitus (on Insulin), diabetic gastroparesis, hypertension, hyperlipidemia, asthma, obesity, GERD seen at [facility] on 08/13/23 after pt was found to be anemic on blood work performed by her PCP. Pt reported feeling weak and with easy fatigability. She denied noticing any blood in her stool or urine and reported chronic constipation with past episodes of hemorrhoidal bleeding (none recently). Pt denied chest pain or shortness of breath. Labs in the ED showed hemoglobin of 7.7 mg/dl and hematocrit of 25.5% (decreased from 8.4 and 26.3 on 07/13/23), low serum magnesium at 1.4 (repleted), elevated blood sugar (285 mg/dl), low iron (18 mcg/dl) and % saturation (5%) with normal TIBC (381 mcg/dl), ferritin 8. A stool for occult test done in the ED was negative. Of note patient's labs show slowly worsening anemia since February 2023. Pt was transfused 1 unit of PRBC while in the ED and admitted for overnight observation and transfusion. PAST GI HISTORY BY REVIEW OF MEDICAL RECORDS: 06/11/2018 EGD AND COLONOSCOPY SHOWED: Endoscopy Findings: LARYNX: Normal ESOPHAGUS: Non-obstructing Schatzki's ring and small hiatal hernia STOMACH: Nodular gastritis - gastric biopsies showed chronic inactive gastritis and were negative for Helicobacter pylori DUODENUM: Normal - small bowel biopsies were normal Colonoscopy Findings: Three adenomatous polyps removed. Patchy erythema and nodular appearing mucosa throughout the colon - likely due to lymphocytic or microscopic colitis or mild IBD - random biopsies were normal. Moderate diverticulosis seen in the entire colon Moderate hemorrhoids - likely source of rectal bleeding. Plan: Continue present medications (Omeprazole at 20 mg PO once daily) Patient has an appointment on 06/25/18 in the GI Clinic with LEOBARDO Clay. Repeat Colonoscopy interval based on path results - in 3-5 yrs if polyps are adenomatous and due to fair prep. Review of Systems 2 Review of Systems: Yes all other systems are reviewed and are negative PMFSH Past Medical History Medical History Pulmonary nodules Hiatal hernia Coronary artery disease Hypercholesterolemia Orthopnea Gastroparesis Headache Lower extremity edema Urinary frequency Right shoulder pain Constipation Abdominal bloating Shoulder pain, right Hip pain, left Nasal congestion Chest pain NSTEMI (non-ST elevated myocardial infarction) Fall HLD (hyperlipidemia) Colon cancer screening Pleural effusion, right Nocturia more than twice per night Glaucoma Cataract of left eye Renal cyst Preop exam for internal medicine On beta kamryn at home Vitamin D deficiency Osteoporosis Restless leg syndrome Type 2 diabetes mellitus with diabetic polyneuropathy Tubal ligation evaluation Adrenal adenoma Pulmonary nodule Fracture of toe of left foot Positive MAGGIE (antinuclear antibody) Osteoarthritis of both knees Osteopenia Ulnar neuropathy Asthma GERD (gastroesophageal reflux disease) Obesity (BMI 30-39.9) Functional capacity: independent ambulation Family History Family History Mother HTN (hypertension) Diabetes Brother Lung cancer Sister Cancer, colon Daughter Uterine cancer Father Prostate cancer Surgical History Surgical History Hx of right cataract extraction History of esophagogastroduodenoscopy (EGD) Hx of colonoscopy History of breast biopsy History of tubal ligation History of laparoscopic cholecystectomy Social History Social History Household Members: Spouse Household Members Other:: Granddaughter is DIRECTOR FINANCIAL PLANNING lives upstairs Housing: Other Housing Other:: m2 family house Are you a primary medicare sales representative to a significant other at home: No Do you presently have visiting nurse or other home services: Yes (DIRECTOR FINANCIAL PLANNING every day) Alcohol intake: never Patient Tobacco Use Status: Former Tobacco user Tobacco use type: Cigarette e-Cigarette/Vaping Use: Never Used Second Hand Smoke Exposure: No service: No Current occupational status: retired and disabled Cognitive needs: No Hearing needs: No Vision needs: Yes (glasses) Meds Allergies Allergy/AdvReac Type Severity Reaction Status Date / Time aspirin [Aspirin] Allergy Mild Abdominal Verified 02/15/24 10:25 Pain Penicillins Allergy Mild NAUSEA/STOMACH Verified 02/15/24 10:25 PAIN hydrochlorothiazide Allergy Unknown hypokalemia Verified 02/15/24 10:25 lisinopril Allergy Unknown ? swelling Verified 02/15/24 10:25 Gtdvzqt-LCA-CiO Reductase Allergy Unknown Muscle Verified 02/15/24 10:25 Inhibitor cramps ibuprofen [From Motrin] AdvReac Unknown Abdominal Verified 02/15/24 10:25 Pain Active Medications: Current Medications Acetaminophen (Acetaminophen 325 Mg Tablet) 650 mg PO Q6H PRN PRN Reason: Pain, Mild (Pain Scale 1-3) Al Hydroxide/Mg Hydroxide (Magnesium Hydrox/Alum Hydrox 30 Ml Oral.Susp) 30 ml PO Q4H PRN PRN Reason: Heartburn/Nausea Dextrose (Dextrose 50 % 25 Gm/50 Ml Syringe) 25 gm IVPUSH Q15M PRN; Protocol PRN Reason: per Hypoglycemia Standing Ord. Docusate Sodium (Docusate Sodium 100 Mg Capsule) 100 mg PO BID [facility] Last Admin: 08/14/23 08:05 Dose: Not Given Glucose (Glucose Gel 15 Gm Gel..Gram.) 15 gm PO Q15M PRN; Protocol PRN Reason: per Hypoglycemia Standing Ord. Insulin Human Lispro (Insulin Lispro 100 Unit/Ml 3 Ml Vial) 0 unit SUBCUT [facility]; Protocol Stop: 08/15/23 04:11 Last Admin: 08/14/23 07:56 Dose: 2 unit Melatonin (Melatonin 3 Mg Tablet) 6 mg PO BEDTIME PRN PRN Reason: Insomnia Ondansetron HCl (Ondansetron Hcl 4 Mg/2 Ml Vial) 4 mg IVPUSH Q8H PRN PRN Reason: Nausea and Vomiting Senna (Sennosides 8.6 Mg Tablet) 17.2 mg PO BEDTIME PRN PRN Reason: Constipation Sodium Chloride (0.9 % Sodium Chloride Flush 3 Ml Syringe) 3 ml IVFLUSH [facility] Last Admin: 08/14/23 07:58 Dose: 3 ml Home Medications ?Medication ?Instructions ?Recorded ?Confirmed ?Last Taken ?Type pantoprazole 40 mg tablet,delayed 40 mg PO BID@0630,1630 08/14/23 01/14/24 08/13/23 History release brimonidine 0.2 % eye drops drp ophthalmic (eye) 02/15/24 Unknown History docusate sodium 100 mg capsule 100 mg PO BEDTIME 02/15/24 Unknown History latanoprost 0.005 % eye drops drp ophthalmic (eye) 02/15/24 Unknown History Physical Exam 2 Vital Signs: Vital Signs: Last Vital Signs Temp 98.2 F 08/14/23 07:47 Pulse 112 H 08/14/23 07:47 Resp 21 H 08/14/23 07:47 BP 161/73 H 08/14/23 07:47 Pulse Ox 100 08/14/23 07:47 O2 Del Method Room Air 08/14/23 07:47 BMI result Body Mass Index 34.6 Const: General: no acute distress Nutritional Appearance: obese O rientation/consciousness: patient oriented x3 Limitations: language barrier HEENT: Head: Yes normal to inspection Ears: hearing grossly normal bilaterally Mouth: Normal oral and palatal mucosa present Eyes: Sclerae: sclerae normal Pupils: Equal, round and reactive pupils present Neck: Neck: Yes normal visual inspection Chest: Chest palpation & inspection: normal inspection of the chest Resp: Effort & Inspection: normal respiratory effort Auscultation: clear to auscultation bilaterally Cardio: Palpation: normal PMI Rate: regular rate Rhythm: regular rhythm Heart sounds: S1 normal heart sound present, S2 normal heart sound present and no murmurs GI: Palpation (GI): Soft to palpation, nontender and No hepatosplenomegaly present Auscultation: normal bowel sounds Rectal Exam - Female: deferred Skin: General skin exam: no rashes or lesions noted Neuro: General: patient oriented x3, gait normal and moves all extremities Cranial nerves: Yes Equal, round and reactive pupils present Psych: Appearance: grossly normal Mental Status: mental status grossly normal Results Labs 08/15/23 10:07 08/14/23 05:08 Labs: Short CBC 08/13/23 08/14/23 Range/Units 19:34 05:08 WBC 7.4 9.6 (4.8-10.8) X10*3/uL Hgb 7.7 L 8.6 L (12.0-16.0) g/dl Hct 25.5 L 27.7 L (37.0-47.0) % Plt Count 369 346 (160-400) X10*3/uL BMP 08/13/23 08/14/23 19:34 05:08 Sodium 142 140 Potassium 3.6 3.5 Chloride 106 105 Carbon Dioxide 27 25 BUN 9 11 Creatinine 0.92 0.80 Calcium 8.9 8.5 Liver Function 08/13/23 Range/Units 19:34 Total Bilirubin 0.4 (0.0-1.0) mg/dL AST 28 (5-31) U/L ALT 20 (0-31) U/L Alkaline Phosphatase 87 (39-117) U/L Albumin 3.9 (3.5-5.0) g/dL Assessment and Plan (1) Anemia: Qualifiers: Anemia type: unspecified type Qualified Code(s): D64.9 - Anemia, unspecified Status: Chronic (2) Gastroparesis: Status: Inactive (3) GERD (gastroesophageal reflux disease): Qualifiers: Esophagitis presence: without esophagitis Qualified Code(s): K21.9 - Gastro-esophageal reflux disease without esophagitis Status: Inactive Plan 73 year old Citizen Of [place] speaking female with CAD s/p recent NSTEMI and s/p PCI with stent placement now on Brilinta & aspirin, Type 2 diabetes mellitus (on Insulin), diabetic gastroparesis, hypertension, hyperlipidemia, asthma, obesity, GERD admitted with acute on chronic anemia without overt GI bleeding. Stool occult blood was negative. Unclear if anemia is related to slow GI blood loss versus hemolysis Pt has a hx of colon polyps and is due for a FU colonoscopy. RECOMMENDATIONS:. 1. Follow CBC post transfusion and recheck stool for occult blood 2. Hemolysis workup - order placed. 3. If CBC remains stable, pt can be discharged home and will be scheduled for an outpatient EGD and Colon 4. Pt needs Cardiology clearance for EGD and colon and regarding antiplatelet therapy. ADDENDUM: Pt was seen by Dr Nunez from Cardiology: Hemoglobin levels reviewed. Currently 7.4 this admission. It has been as much as 11.1 in May. Unclear reason for anemia. Not clear if she is having GI blood loss or not. Discussed with Interventional Cardiology, . At this time, we can start Plavix and stop Brilinta. Continue aspirin. At approximately 6 months time from time of PCI, we can stop aspirin as well and just keep on Plavix only. With regard to her chest pressure/fatigue not clear how much of it is cardiac. As she does have residual CAD, anemia could still precipitate symptoms. Hence can give probably another unit of blood. Discussed with family at bedside. Discussed with Dr. Quezada. Discussed with Dr. Bales. Procedures Date of Service Date of Service: 03/15/24
--- NOTE | 2023-08-14 10:18 | PC.NURSE ---
spoke with Dr Quezada about pts concerns r/t her congestion and mouth pain. informed MD Quezdaa of pts crackles to Right base of lung. no new orders at this time. plan for possible d/c today.
--- NOTE | 2023-08-14 12:56 | PHA.MEDREC ---
Pharmacy Consult ? Medication Reconciliation Pharmacy has completed the medication reconciliation.Spoke to pt and daughter at bedside with assistance of a transverse abdominal muscle surgeon. Daughter had a list of pt medications and patient was able to confirm what medications she is currently on and what has been discontinued. She is quite concerned that she has not had morning medications. I will message provider to notify that med rec is done in case home doses need to be given.
[2023-08-14 13:24] LABS: Glucose, Whole Blood 155 mg/dL (60-115)
[2023-08-14] MEDS: Cholecalciferol (Vitamin D3) 25 MCG TABLET 50 MCG PO (13:55)
[2023-08-14] MEDS: amLODIPine Besylate 5 MG TABLET PO (13:55)
[2023-08-14] MEDS: Ezetimibe 10 MG TABLET PO (13:55)
[2023-08-14] MEDS: Ticagrelor 90 MG TABLET PO (13:55)
[2023-08-14] MEDS: Metoprolol Tartrate 100 MG TABLET PO ×2 (13:55→20:14)
[2023-08-14] MEDS: Losartan Potassium 50 MG TABLET PO (13:56)
--- NOTE | 2023-08-14 14:19 | PM.EVENT ---
Event Note Date of Service: 08/14/23 Event Note: pt seen and examined, admitted for symptomatic anemia and was transfused and feeling better, no active bleed, given recent relative recent stent and no active bleed will continue brinlant for now and close watch, gi eval for need for endsocopy. Monitor H/H Time Spent With Patient Time: Total time managing care of this patient today ____ minutes.
[2023-08-14 18:07] LABS: Glucose, Whole Blood 178 mg/dL (60-115)
[2023-08-14] MEDS: Omeprazole 20 MG CAPSULE.DR PO (19:09)
[2023-08-14] MEDS: Docusate Sodium 100 MG CAPSULE PO (20:14)
[2023-08-14] MEDS: metFORMIN HCl 500 MG TABLET PO (20:14)
[2023-08-14] MEDS: Insulin Glargine,Hum.rec.anlog 100 UNIT/ML 10 ML VIAL 18 UNIT SUBCUT (20:14)
[2023-08-14] MEDS: Atorvastatin Calcium 40 MG TABLET PO (20:14)
[2023-08-14 20:26] LABS: Glucose, Whole Blood 265 mg/dL (60-115)
[2023-08-15] MEDS: Omeprazole 20 MG CAPSULE.DR PO (08:24)
[2023-08-15] MEDS: metFORMIN HCl 500 MG TABLET PO (08:24)
[2023-08-15] MEDS: Docusate Sodium 100 MG CAPSULE PO (08:24)
[2023-08-15] MEDS: Cholecalciferol (Vitamin D3) 25 MCG TABLET 50 MCG PO (08:24)
[2023-08-15] MEDS: Ezetimibe 10 MG TABLET PO (08:25)
[2023-08-15] MEDS: Metoprolol Tartrate 100 MG TABLET PO (08:31)
[2023-08-15] MEDS: Losartan Potassium 50 MG TABLET PO (08:31)
[2023-08-15] MEDS: amLODIPine Besylate 5 MG TABLET PO (08:31)
[2023-08-15 08:33] VITALS: BP 139/63; PULSE 86; RESP 16; O2SAT 98
--- NOTE | 2023-08-15 08:35 | PC.NURSE ---
assumed care of pt at 0700. pt a&o, calm, and cooperative. pt refused breakfast this AM. medicated per nov for morning medications. pt sts she wants to go home, is not pleased with being in the hallway. with help of doctor podiatric medicine, pt told she is not leaving just yet and the reason she is out in the hallway is because they needed her room for a critical pt. pt boosted self in bed, sitting up resting quietly. in no apparent distress. denies pain. rr even/unlabored. plan of care ongoing. awaiting pt bed assignment.
[2023-08-15 09:04] LABS: Glucose, Whole Blood 163 mg/dL (60-115)
--- NOTE | 2023-08-15 09:46 | PC.NURSE ---
pt resting quietly on stretcher in no apparent distress. plan of care ongoing. awaiting pt room assignment.
--- NOTE | 2023-08-15 09:49 | PM.CNCAR ---
History of Present Illness History of Present Illness Date of Service: 08/15/23 Chief complaint: Symptomatic Anemia; Hypomagnesemia Narrative: This is a cardiology consultation regarding anemia as well as recent PCI. Patient belongs to Dr. Bales. Current admission is because of anemia. Apparently she has been feeling weak and with easy fatigability. In this context, she had blood work done which showed anemia and hence she has been referred to the emergency room. From the cardiac standpoint, she states that she does not have any clear-cut chest pain but she keeps talking about tiredness/fatigue in the chest and not clear if she is actually having angina or not. 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 She underwent cardiac catheterization and May of this year and at that time had drug-eluting stent to proximal LAD. Apparently on aspirin/Brilinta. Review of Systems Review of Systems: Yes all other systems are reviewed and are negative Constitutional: Constitutional: Reports as per HPI, Reports no additional constitutional complaints, Reports fatigue, Reports lethargy and Reports weakness Eyes: Eyes: Reports as per HPI and Denies no additional eye complaints ENT: Denies system reviewed and no additional complaints, except as documented and Reports as per HPI Cardiovascular: Cardiovascular: Reports as per HPI, Reports no additional cardiovascular complaints, Denies acrocyanosis, Denies cool extremities, Denies chest pain, Denies leg edema, Denies lightheadedness, Denies palpitations and Denies dyspnea Respiratory: Respiratory: Reports as per HPI, Denies no additional respiratory complaints and Denies dyspnea Gastrointestinal: Gastrointestinal: Reports as per HPI and Denies no additional gastrointestinal complaints Genitourinary: Genitourinary: Reports as per HPI Musculoskeletal: Musculoskeletal: Reports no additional musculoskeletal complaints and Reports as per HPI Integumentary/Breasts: Skin/Breast: Reports system reviewed and no additional complaints, except as docu Neurologic: Reports system reviewed and no additional complaints, except as documented, Reports as per HPI and Reports weakness Psychiatric: Psychiatric: Reports no additional psychiatric complaints and Reports as per HPI Endocrine: Endocrine: Reports no additional endocrine complaints, Reports as per HPI, Reports fatigue and Denies palpitations Hematologic/Lymphatic: Hematologic/Lymphatic: Reports no additional hematologic/lymphatic complaints and Reports as per HPI Allergic/Immunologic: Allergic/Immunologic: Reports no additional allergic/immunologic complaints and Reports as per HPI [facility] Past Medical History Medical History Orthopnea Headache Lower extremity edema Urinary frequency Right shoulder pain Constipation Abdominal bloating Shoulder pain, right Hip pain, left Nasal congestion Chest pain NSTEMI (non-ST elevated myocardial infarction) Fall HLD (hyperlipidemia) Colon cancer screening Pleural effusion, right Nocturia more than twice per night Glaucoma Cataract of left eye Renal cyst Preop exam for internal medicine On beta kamryn at home Vitamin D deficiency Osteoporosis Restless leg syndrome Type 2 diabetes mellitus with diabetic polyneuropathy Tubal ligation evaluation Adrenal adenoma Pulmonary nodule Fracture of toe of left foot Positive MAGGIE (antinuclear antibody) Osteoarthritis of both knees Osteopenia Ulnar neuropathy Asthma GERD (gastroesophageal reflux disease) Obesity (BMI 30-39.9) Coronary artery disease Hypercholesterolemia Functional capacity: independent ambulation Family History Family History Mother HTN (hypertension) Diabetes Brother Lung cancer Sister Cancer, colon Daughter Uterine cancer Father Prostate cancer Surgical History Surgical History Hx of right cataract extraction History of esophagogastroduodenoscopy (EGD) Hx of colonoscopy History of breast biopsy History of tubal ligation History of laparoscopic cholecystectomy Social History Social History Household Members: Significant Other Household Members Other:: 2 Housing: House Are you a primary resident caregiver to a significant other at home: No Do you presently have visiting nurse or other home services: Yes ([employer]) Alcohol intake: never Patient Tobacco Use Status: Former Tobacco user Quit Date: quit years ago Tobacco use type: Cigarette Smoked in Last 30 Days: No e-Cigarette/Vaping Use: Former Use Second Hand Smoke Exposure: No Use of substances other than those prescribed or required for medical reasons: No Advance Directives: No Advance Directives Information Provided: Yes Nutrition Risks: No Nutritional Risk service: No Current occupational status: retired and disabled Cognitive needs: No Hearing needs: No Vision needs: Yes (glasses) Meds Allergies Allergy/AdvReac Type Severity Reaction Status Date / Time aspirin [Aspirin] Allergy Mild Abdominal Verified 07/13/23 16:32 Pain Penicillins Allergy Mild NAUSEA/STOMACH Verified 07/13/23 16:32 PAIN hydrochlorothiazide Allergy Unknown hypokalemia Verified 07/13/23 16:32 lisinopril Allergy Unknown ? swelling Verified 07/13/23 16:32 [id number] Reductase Allergy Unknown Muscle Verified 07/13/23 16:32 Inhibitor cramps ibuprofen [From Motrin] AdvReac Unknown Abdominal Verified 07/13/23 16:32 Pain Active Medications: Current Medications Acetaminophen (Acetaminophen 325 Mg Tablet) 650 mg PO Q6H PRN PRN Reason: Pain, Mild (Pain Scale 1-3) Al Hydroxide/Mg Hydroxide (Magnesium Hydrox/Alum Hydrox 30 Ml Oral.Susp) 30 ml PO Q4H PRN PRN Reason: Heartburn/Nausea Amlodipine Besylate (Amlodipine Besylate 5 Mg Tablet) 5 mg PO DAILY [facility]; Protocol Last Admin: 08/15/23 08:31 Dose: 5 mg Atorvastatin Calcium (Atorvastatin Calcium 40 Mg Tablet) 40 mg PO BEDTIME [facility] Last Admin: 08/14/23 20:14 Dose: 40 mg Dextrose (Dextrose 50 % 25 Gm/50 Ml Syringe) 25 gm IVPUSH Q15M PRN; Protocol PRN Reason: per Hypoglycemia Standing Ord. Docusate Sodium (Docusate Sodium 100 Mg Capsule) 100 mg PO BID [facility] Last Admin: 08/15/23 08:24 Dose: 100 mg Ezetimibe (Ezetimibe 10 Mg Tablet) 10 mg PO DAILY [facility] Last Admin: 08/15/23 08:25 Dose: 10 mg Fluticasone/Vilanterol (Fluticasone/Vilanterol 100/25 Blst.W.Dev) 1 puff INHALE RDAILY [facility] Last Admin: 08/15/23 08:29 Dose: Not Given Glucose (Glucose Gel 15 Gm Gel..Gram.) 15 gm PO Q15M PRN; Protocol PRN Reason: per Hypoglycemia Standing Ord. Insulin Glargine (Insulin Glargine,Hum.Rec.Anlog 100 Unit/Ml 10 Ml Vial) 18 unit SUBCUT BEDTIME [facility] Last Admin: 08/14/23 20:14 Dose: 18 unit Losartan Potassium (Losartan Potassium 50 Mg Tablet) 50 mg PO DAILY [facility]; Protocol Last Admin: 08/15/23 08:31 Dose: 50 mg Melatonin (Melatonin 3 Mg Tablet) 6 mg PO BEDTIME PRN PRN Reason: Insomnia Metformin HCl (Metformin Hcl 500 Mg Tablet) 500 mg PO BID [facility] Last Admin: 08/15/23 08:24 Dose: 500 mg Metoprolol Tartrate (Metoprolol Tartrate 100 Mg Tablet) 100 mg PO BID [facility]; Protocol Last Admin: 08/15/23 08:31 Dose: 100 mg Omeprazole (Omeprazole 20 Mg Capsule.Dr) 20 mg PO BID@0630,1630 [facility] Last Admin: 08/15/23 08:24 Dose: 20 mg Ondansetron HCl (Ondansetron Hcl 4 Mg/2 Ml Vial) 4 mg IVPUSH Q8H PRN PRN Reason: Nausea and Vomiting Senna (Sennosides 8.6 Mg Tablet) 17.2 mg PO BEDTIME PRN PRN Reason: Constipation Sodium Chloride (0.9 % Sodium Chloride Flush 3 Ml Syringe) 3 ml IVFLUSH QSHIFT [facility] Last Admin: 08/15/23 08:13 Dose: Not Given Tizanidine HCl (Tizanidine Hcl 4 Mg Tablet) 4 mg PO BEDTIME PRN PRN Reason: muscle spasticity Vitamin D (Cholecalciferol (Vitamin D3) 25 Mcg Tablet) 50 mcg PO DAILY [facility] Last Admin: 08/15/23 08:24 Dose: 50 mcg Home Medications Medication Instructions Recorded Confirmed Last Taken Type insulin glargine 100 unit/mL (3 18 unit subcut BEDTIME 01/22/23 08/14/23 08/13/23 History mL) subcutaneous pen (Lantus Solostar U-100 Insulin) metformin 500 mg tablet 500 mg PO BID 08/14/23 08/14/23 08/13/23 History pantoprazole 40 mg tablet,delayed 40 mg PO BID@0630,1630 08/14/23 08/14/23 08/13/23 History release semaglutide 0.25 mg or 0.5 mg (2 0.5 mg subcut SA 08/14/23 08/14/23 08/11/23 History mg/3 mL) subcutaneous pen injector (Ozempic) Physical Exam Vital Signs: Vital Signs: Last Vital Signs Temp 98.3 F 08/14/23 21:12 Pulse 86 08/15/23 08:33 Resp 16 08/15/23 08:33 BP 139/63 08/15/23 08:33 Pulse Ox 98 08/15/23 08:33 O2 Del Method Room Air 08/15/23 08:33 BMI result Body Mass Index 34.6 Const: General: comfortable and no acute distress Orientation/consciousness: patient oriented x3 HEENT: Other: Unremarkable Head: Yes normal to inspection Neck: Neck: Yes normal visual inspection Chest: Chest palpation & inspection: normal inspection of the chest Resp: Auscultation: clear to auscultation bilaterally Cardio: Palpation: normal PMI Heart sounds: S1 normal heart sound present, S2 normal heart sound present, no gallops, no murmurs and no rubs GI: Palpation (GI): Soft to palpation Back/Spine/Pelvis: Other: unremarkable Skin: General skin exam: no rashes or lesions noted Neuro: General: patient oriented x3 Extrem: General: Yes normal to inspection Psych: Mental Status: mental status grossly normal Objective Labs and Meds 08/14/23 05:08 08/14/23 05:08 Lab results: Laboratory Results - last 24 hr 08/13/23 08/14/23 08/14/23 23:22 13:16 18:02 POC Glucose 155 H 178 H Blood Type A Positive Antibody Screen NEGATIVE ELBERT, Polyspecific NEGATIVE Positive ELBERT Work-up TNP Crossmatch See Detail 08/14/23 08/15/23 20:13 08:22 POC Glucose 265 H 163 H Blood Type Antibody Screen ELBERT, Polyspecific Positive ELBERT Work-up Crossmatch ECG Interpretation: EKG with sinus at 92/min; Nonspecific ST-T changes. Artifact tracing. PVC. Assessment and Plan (1) Anemia: Qualifiers: Anemia type: unspecified type Qualified Code(s): D64.9 - Anemia, unspecified Status: Acute (2) Coronary artery disease: Qualifiers: Associated angina: without angina Coronary Disease-Associated Artery/Lesion type: [place] artery [place] vs. transplanted heart: [place] heart Qualified Code(s): I25.10 - Atherosclerotic heart disease of [place] coronary artery without angina pectoris Status: Acute Plan Hemoglobin levels reviewed. Currently 7.4 this admission. It has been as much as 11.1 in May. Unclear reason for anemia. Not clear if she is having GI blood loss or not. Discussed with Interventional Cardiology, . At this time, we can start Plavix and stop Brilinta. Continue aspirin. At approximately 6 months time from time of PCI, we can stop aspirin as well and just keep on Plavix only. With regard to her chest pressure/fatigue not clear how much of it is cardiac. As she does have residual CAD, anemia could still precipitate symptoms. Hence can give probably another unit of blood. Discussed with family at bedside. Discussed with Dr. Quezada. Discussed with Dr. Bales. Procedures Date of Service Date of Service: 08/15/23
--- NOTE | 2023-08-15 10:09 | MHC.CM.PN ---
Addendum entered by Mallory Lorenzo 08/15/23 10:41: PT NOW INPT, IMM DELIVERED Original Note: CM MET WITH PT WITH THE ASSISTANCE OF A UROLOGY NURSE PT LIVES WITH HER AND HAS DAILY [employer]EMENT [employer]IST SERVICES SHE USES A CANE TO AMBULATE HCP ON FILE PCP: DARWIN MILLER OBSERVATION NOTICE DELIVERED DCP: HOME [employer]UME [employer] IMPROVEMENT SPECIALIST TO TRANSPORT
[2023-08-15 10:15] LABS: Hematocrit 31.4 % (37.0-47.0); Hemoglobin 9.9 g/dl (12.0-16.0); Mean Corpuscular HGB Conc 31.5 g/dl (31.0-35.0); Mean Corpuscular Hemoglobin 27.1 pg (27.0-33.0); Mean Platelet Volume 10.4 fL (9.4-12.3); Platelet Count 386 X10*3/uL (160-400); Red Blood Count 3.65 X10*6/uL (4.20-5.50); Red Cell Distribution Width 15.5 % (11.0-16.0); Retic HGB Equivalent 24.2 pg (30.0-35.0); Reticulocyte Percent 2.1 % (0.5-1.8); Reticulocytes Absolute 0.075 X10*6/uL (0.026-0.095); White Blood Count 8.1 X10*3/uL (4.8-10.8)
--- NOTE | 2023-08-15 11:22 | PC.NURSE ---
report complete, pt heading up to inpatient room 362. transported by NICOLASA Brower.
[2023-08-15 11:47] LABS: Glucose, Whole Blood 208 mg/dL (60-115)
[2023-08-15 11:59] VITALS: BP 139/63; PULSE 80; RESP 16; TEMP 36.6; O2SAT 98
--- NOTE | 2023-08-15 12:39 | P.DS_ITS ---
DS: Providers Provider Date of Service: 08/15/23 Date of admission: 08/14/23 14:00 Primary care physician: Junior Zayas MD Consults: 08/14/23 09:07 Consult to Gastroenterology Routine Consulting Provider: Susanne Negron Reason for consultation: anemia, concern for gi loss Has provider been notified: No 08/14/23 14:07 Consult to Cardiology Routine Consulting Provider[place] [facility] [place] [facility] Reason for consultation: anemia, recent mi on brilanta.. need cardiac accessment for egd colnoscopy DS: Diagnosis Discharge Diagnosis (1) Anemia: Status: Acute (2) Coronary artery disease: Status: Acute DS: Summary Hospital Course Hospital Course: Chief Complaint: Generalized weakness and easy fatigability x1 month Patient is a 73 year old female with PMH of CAD s/p recent NSTEMI and s/p PCI with stent placement now on Brilinta & aspirin, Type 2 diabetes mellitus (on Insulin), diabetic gastroparesis, hypertension, hyperlipidemia, asthma, obesity, GERD who was sent to the emergency room by her primary care provider for evaluation after she was found to be anemic on blood work done this afternoon. She reports feeling weak and with easy fatigability. She has not noticed any blood in her stool or urine but reports a history of chronic constipation with previous episodes of hemorrhoidal bleed though has not noticed any recently. She denies any associated chest pain or shortness of breath. Significant findings on blood tests done in the ED include anemia with a hemoglobin of 7.7 mg/dl and hematocrit of 25.5%, low serum magnesium at 1.4 (repleted), elevated blood sugar (285 mg/dl), low iron (18 mcg/dl) and % saturation (5%) with normal TIBC (381 mcg/dl). A stool for occult test done in the ED was negative. When I saw her, she was receiving her first unit of PRBC while in the ED. Admission was requested for overnight observation and transfusion. Hospital course: Patient was admited due to anemia with weakness and fatigue for nearly a month. She was on ASA and Brilanta since having a heart attack in May and getting cardiac stent. She was not having an active bleed. Her hematocrit was 24 and thus was transfused 1 unit with good effect, hematocrit is now 31. GI saw her and recommends outpatient follow up and possible EGD+/- colonscopy. Cardiology evaluated her and recommends changing Brilanta to Plavix and to continue ASA, and at 6 months from stent will stop aspirin. Time Attestation Discharge coordination time: Greater than 30 minutes Quality: Safe Use of Opioids Does Pt have an Active Cancer Diagnosis on the Problem List?: No Quality: Stroke Does the patient have a stroke diagnosis?: No Physical Exam Vital Signs: Vital Signs: Last Vital Signs Temp 97.8 F 08/15/23 11:59 Pulse 80 08/15/23 11:59 Resp 16 08/15/23 11:59 BP 139/63 08/15/23 11:59 Pulse Ox 98 08/15/23 11:59 O2 Del Method Room Air 08/15/23 11:59 BMI result Body Mass Index 34.6 Const: Other: General: AO X 3, no acute distress Resp: CTA bilateral CVS: S1,S2,RRR GI: +BS, NT, no distention Skin: No rash Neuro: motor grossly intact Psych: appropriate affect DS: Data Data Completed and Pending Labs on day of discharge: Laboratory Results - last 24 hr 08/13/23 08/14/23 08/14/23 23:22 13:16 18:02 WBC RBC Hgb Hct MCV MCH MCHC RDW Plt Count MPV Absolute Nucleated RBC Nucleated RBC % (auto) Absolute Retic Percent Retic Immature Retic Fraction Retic Hgb Equivalent POC Glucose 155 H 178 H Blood Type A Positive Antibody Screen NEGATIVE ELBERT, Polyspecific NEGATIVE Positive ELBERT Work-up TNP Crossmatch See Detail 08/14/23 08/15/23 08/15/23 20:13 08:22 10:07 WBC 8.1 RBC 3.65 L Hgb 9.9 L Hct 31.4 L MCV 86.0 MCH 27.1 MCHC 31.5 RDW 15.5 Plt Count 386 MPV 10.4 Absolute Nucleated RBC 0.000 Nucleated RBC % (auto) 0.0 Absolute Retic 0.075 Percent Retic 2.1 H Immature Retic Fraction 28.0 H Retic Hgb Equivalent 24.2 L POC Glucose 265 H 163 H Blood Type Antibody Screen ELBERT, Polyspecific Positive ELBERT Work-up Crossmatch 08/15/23 11:43 WBC RBC Hgb Hct MCV MCH MCHC RDW Plt Count MPV Absolute Nucleated RBC Nucleated RBC % (auto) Absolute Retic Percent Retic Immature Retic Fraction Retic Hgb Equivalent POC Glucose 208 H Blood Type Antibody Screen ELBERT, Polyspecific Positive ELBERT Work-up Crossmatch Discharge Plan Discharge Anticipated Discharge Date/Time: 08/15/23 12:33 Patient Disposition: Home, Self-Care Discharge Diagnosis: Symptomatic anemia Referrals: Marquez,Junior Galarza MD [Primary Care Provider] - 1 Week Discharge Medications: New clopidogrel [Plavix] 75 mg tablet 75 mg PO DAILY Qty: 30 0RF Continued cholecalciferol (vitamin D3) 50 mcg (2,000 unit) capsule 50 mcg PO DAILY 90 Days Qty: 90 3RF metoprolol tartrate 100 mg tablet 100 mg PO BID Qty: 180 3RF (DME) lancets 33 gauge [facility] [place] See Rx Instructions .ROUTE .MEDSUPPLY Qty: 100 11RF Rx Instructions: As directed twice a day (DME) adult pull ups LARGE See Rx Instructions .Route .MEDSUPPLY Qty: 180 0RF Rx Instructions: As directed aspirin 81 mg tablet,delayed release (DR/EC) 81 mg PO DAILY 90 Days Qty: 90 3RF (DME) OneTouch Verio test strips Strip See Rx Instructions .ROUTE .MEDSUPPLY Qty: 50 11RF Rx Instructions: As directed twice a day, fasting am and at bedtime losartan 50 mg tablet 50 mg PO DAILY Qty: 30 2RF ezetimibe [Zetia] 10 mg tablet 10 mg PO DAILY Qty: 90 0RF fluticasone propion-salmeterol [Wixela Inhub] 250-50 mcg/dose blister with device 1 ea PO BID Qty: 60 0RF amlodipine 5 mg tablet 5 mg PO DAILY Qty: 30 0RF tizanidine 4 mg capsule 4 mg PO BEDTIME PRN (Reason: muscle spasticity) Qty: 30 0RF metformin 500 mg tablet 500 mg PO BID pantoprazole 40 mg tablet,delayed release (DR/EC) 40 mg PO BID@0630,1630 Ozempic 0.25 mg or 0.5 mg (2 mg/3 mL) pen injector 0.5 mg subcut SA (DME) Altera Nebulizer System [facility] [place] See Rx Instructions .ROUTE .MEDSUPPLY Qty: 1 0RF Rx Instructions: As directed updraft Q 4 hours prn with albuterol (DME) blood pressure monitor [Blood Pressure Kit] Kit See Rx Instructions .ROUTE .MEDSUPPLY Qty: 1 0RF Rx Instructions: As directed atorvastatin 40 mg tablet 40 mg PO BEDTIME Qty: 90 1RF insulin glargine [Lantus Solostar U-100 Insulin] 100 unit/mL (3 mL) insulin pen 18 unit subcut BEDTIME Discontinued Brilinta 90 mg tablet 90 mg PO BID Qty: 60 4RF Discharge Orders: Discharge Order (Routine); Ordered 08/15/23 Ordered By: Bob Quezada Diet: Advance to usual diet Activity on Discharge: As tolerated Stand Alone Forms: Patient Portal Discharge page Care Plan Goals: anemia workup Health Concerns: anemia Plan of Treatment: stop taking Brilinta, take Plavix and aspirin. Follow-up with Dr. Negron in the GI office follow-up with her primary care doctor within a week, call to arrange the appointment. You will be taking Plavix in place of Brilinta Assessment: see above
--- NOTE | 2023-08-15 13:01 | MHC.CM.PN ---
PER MD MEDICALLY CLEARED FOR DC. PLAN IS RETURN HOME AND RESUME [employer]. DISCUSSED WITH DAUGHTER/[employer] AYANNA, WHO WILL PROVIDE TRANSPORTATION AT 1:30PM. RN AWARE.
[2023-08-16 23:03] LABS: Haptoglobin 209 MG/DL ((30-200))
== END 2023-08-15 13:43 | disposition home or self-care (01) | DRG 812 ==
LOC: HO.ED 23:23 → HO.EDOVER 08-14 02:35 → HO.S3 08-15 10:50
PROVIDERS: Internal Medicine Gastroenterology; Physician Assistant Medical; Admitting Provider Internal Medicine; Emergency Provider Emergency Medicine; PCP Internal Medicine; Visit Provider Internal Medicine
DX: D50.9 Iron deficiency anemia, unspecified (principal); E78.00 Pure hypercholesterolemia, unspecified; I25.10 Atherosclerotic heart disease of native coronary artery without angina pectoris; K21.9 Gastro-esophageal reflux disease without esophagitis; E11.43 Type 2 diabetes mellitus with diabetic autonomic (poly)neuropathy; K31.84 Gastroparesis; I25.2 Old myocardial infarction; Z87.891 Personal history of nicotine dependence; Z95.5 Presence of coronary angioplasty implant and graft; Z79.82 Long term (current) use of aspirin; Z79.51 Long term (current) use of inhaled steroids; Z79.84 Long term (current) use of oral hypoglycemic drugs; Z79.899 Other long term (current) drug therapy
CPT/HCPCS: 36415; 80048; 80053; 82272; 82607; 82746; 82947; 83010; 83540; 83735; 85025; 85027; 85045; 85610; 85730; 86850; 86880; 86900; 86901; 86923; 93005; 99285; C9113; J3475; P9016

== ENCOUNTER → 2023-08-13 22:49 | Outpatient (BNV) | payer OTHER, SELFPAY ==
[2023-07-31 10:06] VITALS: BP 142/70; BP 152/84; BMI 31.9
== END ==
PROVIDERS: Admitting Provider Internal Medicine; Emergency Provider Emergency Medicine; PCP Internal Medicine; Visit Provider Internal Medicine
DX: I49.3 Ventricular premature depolarization (principal)
CPT/HCPCS: 93010

== ENCOUNTER → 2023-08-14 02:16 | Outpatient (BNV) | payer OTHER, SELFPAY ==
[2023-07-31 10:06] VITALS: BP 142/70; BP 152/84; BMI 31.9
== END ==
PROVIDERS: Admitting Provider Internal Medicine; Emergency Provider Emergency Medicine; PCP Internal Medicine; Visit Provider Internal Medicine
DX: I25.10 Atherosclerotic heart disease of native coronary artery without angina pectoris (principal); E11.42 Type 2 diabetes mellitus with diabetic polyneuropathy; Z79.4 Long term (current) use of insulin; D64.9 Anemia, unspecified; E83.42 Hypomagnesemia; E78.00 Pure hypercholesterolemia, unspecified
CPT/HCPCS: 99223; 99239; 99499

== ENCOUNTER → 2023-08-14 14:00 | Outpatient (BNV) | payer OTHER, SELFPAY | PROVIDERS: Admitting Provider Internal Medicine; Emergency Provider Emergency Medicine; PCP Internal Medicine; Visit Provider Internal Medicine Gastroenterology | DX: D64.9 Anemia, unspecified (principal); K31.84 Gastroparesis; K21.9 Gastro-esophageal reflux disease without esophagitis | CPT/HCPCS: 99499 ==

== ENCOUNTER → 2023-08-14 14:00 | Outpatient (BNV) | payer OTHER, SELFPAY ==
[2023-07-31 10:06] VITALS: BP 142/70; BP 152/84; BMI 31.9
== END ==
PROVIDERS: Admitting Provider Internal Medicine; Emergency Provider Emergency Medicine; PCP Internal Medicine; Visit Provider Internal Medicine
DX: I25.10 Atherosclerotic heart disease of native coronary artery without angina pectoris (principal); D64.9 Anemia, unspecified
CPT/HCPCS: 99222

== ENCOUNTER 2023-09-05 14:16 | Outpatient (AMB) | payer OTHER, SELFPAY ==
[2023-07-31 10:06] VITALS: BP 142/70; BP 152/84
[2023-08-27 09:14] VITALS: BP 152/84; BMI 31.9
[2023-08-29 08:07] VITALS: BP 142/70; BP 152/84; BMI 31.9
[2023-09-05 14:22] VITALS: BP 120/50; BMI 30.2
--- NOTE | 2023-09-05 14:22 | MHC.OFFVIS ---
Intake Vital Signs 09/05/23 14:22 Height 5 ft 2 in Weight 164 lb 14.492 oz BMI 30.2 BP 120/50 L Blood Pressure Location Lt brachial Position Sitting Pulse Source Pulse Oximeter Intake Visit Reasons: 3 mnth f/up Intake Note: 3 mnth f/up pt its feeling good last nigth she felt a little of shortness of breath while sleeping that she had to put multiple pillows to feel elevated. Appointment Manager Required: No Accompanied by: Daughter Allergies aspirin [Aspirin] Allergy (Mild, Verified 07/13/23 16:32) Abdominal Pain Penicillins Allergy (Mild, Verified 07/13/23 16:32) NAUSEA/STOMACH PAIN hydrochlorothiazide Allergy (Unknown, Verified 07/13/23 16:32) hypokalemia lisinopril Allergy (Unknown, Verified 07/13/23 16:32) ? swelling Qnwhjdr-HHD-XoN Reductase Inhibitor Allergy (Unknown, Verified 07/13/23 16:32) Muscle cramps ibuprofen [From Motrin] Adverse Reaction (Unknown, Verified 07/13/23 16:32) Abdominal Pain Medication List - Last Reconciled 09/05/23 by Rae Faith NP [adult pull ups As directed] amlodipine 5 mg PO DAILY aspirin 81 mg PO DAILY 90 days atorvastatin 40 mg PO BEDTIME blood pressure monitor (Blood Pressure Kit) As directed blood sugar diagnostic (OneTouch Verio test strips) As directed twice a day, fasting am and at bedtime cholecalciferol (vitamin D3) 50 mcg PO DAILY 90 days clopidogrel (Plavix) 75 mg PO DAILY ezetimibe (Zetia) 10 mg PO DAILY fluticasone propion-salmeterol 250-50 mcg/dose (Wixela Inhub) 1 ea PO BID furosemide 20 mg PO DAILY insulin glargine (Lantus Solostar U-100 Insulin) 18 units subcut BEDTIME lancets As directed twice a day losartan 50 mg PO DAILY metformin 500 mg PO BID metoprolol tartrate 100 mg PO BID nebulizers (Altera Nebulizer System) As directed updraft Q 4 hours prn with albuterol pantoprazole 40 mg PO BID@0630,1630 semaglutide (Ozempic) 0.5 mg subcut SA tizanidine 4 mg PO BEDTIME PRN HPI HPI Comments History of Present Illness Details 73-year-old female presents with her daughter for a follow-up. Her daughter is translating and appropriate form signed. She was recently hospitalized for anemia and was switched from Brilinta to Plavix. She has been tolerating it well. She reports no bleeding issues since switching. She denies chest pain or shortness of breath with exertion. Endorses chronic orthopnea which she believes is to be her asthma. She had a YVETTE placed in her Proximal LAD back in May. She continues with Cardiac Rehab and has been doing well with no issues or concerns. [facility] Medical History (Updated 09/05/23 @ 15:02 by Rae Faith NP) Orthopnea Gastroparesis Headache Lower extremity edema Urinary frequency Right shoulder pain Constipation Abdominal bloating Shoulder pain, right Hip pain, left Nasal congestion Chest pain NSTEMI (non-ST elevated myocardial infarction) Fall HLD (hyperlipidemia) Colon cancer screening Pleural effusion, right Nocturia more than twice per night Glaucoma Cataract of left eye Renal cyst Preop exam for internal medicine On beta kamryn at home Vitamin D deficiency Osteoporosis Restless leg syndrome Type 2 diabetes mellitus with diabetic polyneuropathy Tubal ligation evaluation Adrenal adenoma Pulmonary nodule Fracture of toe of left foot Positive MAGGIE (antinuclear antibody) Osteoarthritis of both knees Osteopenia Ulnar neuropathy Asthma GERD (gastroesophageal reflux disease) Obesity (BMI 30-39.9) Coronary artery disease Hypercholesterolemia Surgical History Hx of right cataract extraction History of esophagogastroduodenoscopy (EGD) Hx of colonoscopy History of breast biopsy History of tubal ligation History of laparoscopic cholecystectomy Family History Mother HTN (hypertension) Diabetes Brother Lung cancer Sister Cancer, colon Daughter Uterine cancer Father Prostate cancer Social History Household Members: Spouse Household Members Other:: Granddaughter is HOME SECURITY ALARM INSTALLER lives upstairs Housing: Other Housing Other:: m2 family house Are you a primary rental boats caretaker to a significant other at home: No Do you presently have visiting nurse or other home services: Yes (HOME SECURITY ALARM INSTALLER every day) Alcohol intake: never Patient Tobacco Use Status: Former Tobacco user Quit Date: quit years ago Tobacco use type: Cigarette e-Cigarette/Vaping Use: Never Used Second Hand Smoke Exposure: No service: No Current occupational status: retired and disabled Cognitive needs: No Hearing needs: No Vision needs: Yes (glasses) Review of Systems Const Denies chills, Denies fatigue, Denies fever(s), Denies frequent falls, Denies weakness, Denies weight gain and Denies weight loss ENT Denies dizziness and Denies mouth lesions Card Denies chest pain, Denies leg edema, Denies lightheadedness, Denies palpitations, Denies dyspnea and Denies dyspnea on exertion Resp Denies cough, Denies dyspnea and Denies dyspnea on exertion GI Denies hematochezia Musc Denies abnormal gait, Denies muscle weakness, Denies numbness, Denies radiating pain into limb and Denies tingling Neuro Denies abnormal gait, Denies dizziness, Denies frequent falls, Denies numbness, Denies tingling and Denies weakness Endo Denies fatigue and Denies palpitations Physical Exam Vital Signs: Last Vital Signs BP 120/50 L 09/05/23 14:22 BMI result Body Mass Index 30.2 Const General: healthy appearing and no acute distress Orientation/consciousness: patient oriented x3 HEENT Head: Yes normal to inspection Eyes General: appearance normal, both eyes and all related structures Neck Neck: Yes normal visual inspection Chest Chest palpation & inspection: normal inspection of the chest Resp Effort & Inspection: normal respiratory effort Auscultation: clear to auscultation bilaterally Cardio Jugular venous distension: no JVD Palpation: normal PMI Rate: regular rate Rhythm: regular rhythm Heart sounds: S1 normal heart sound present, S2 normal heart sound present, no click, no gallops, no murmurs and no rubs GI Inspection: Yes normal to inspection Palpation (GI): Soft to palpation Skin General skin exam: no rashes or lesions noted Neuro General: patient oriented x3 Extrem General: Yes normal to inspection Psych Appearance: grossly normal Assessment & Plan Assessment & Plan (1) NSTEMI (non-ST elevated myocardial infarction): Comment: May 2023 distal LAD drug-eluting stent Code(s): I21.4 - Non-ST elevation (NSTEMI) myocardial infarction (2) Hypertension: Code(s): I10 - Essential (primary) hypertension (3) Orthopnea: Code(s): R06.01 - Orthopnea Plan Reports Jolynn has not helped orthopnea - she is going to talk to her PCP about her asthma management. Blood pressure within goal today. Continue Plavix and ASA 81mg. Heart healthy diet and exercise as tolerated encouraged. Continue Cardiac Rehab. Report any new or worsening symptoms. Coding Level of Care Code Est Pt Level 4 (20977) Diagnoses NSTEMI (non-ST elevated myocardial infarction) I21.4 Hypertension I10 Orthopnea R06.01
== END 2023-09-05 14:56 | disposition home or self-care (01) ==
PROVIDERS: PCP Internal Medicine; Visit Provider Nurse Practitioner
DX: I21.4 Non-ST elevation (NSTEMI) myocardial infarction (principal); I10 Essential (primary) hypertension; R06.01 Orthopnea
CPT/HCPCS: 99214

== ENCOUNTER → 2023-09-05 14:16 | Outpatient (BNVA) | payer OTHER, SELFPAY ==
[2023-08-29 08:07] VITALS: BP 142/70; BP 152/84; BMI 31.9
== END ==
PROVIDERS: PCP Internal Medicine; Visit Provider Nurse Practitioner
DX: I21.4 Non-ST elevation (NSTEMI) myocardial infarction (principal); I10 Essential (primary) hypertension; R06.01 Orthopnea
CPT/HCPCS: 99212

== ENCOUNTER 2023-09-06 10:34 | Outpatient (AMB) | payer OTHER, SELFPAY ==
[2023-08-29 08:07] VITALS: BP 142/70; BP 152/84; BMI 31.9
[2023-09-06 10:41] VITALS: BP 144/72; PULSE 82; O2SAT 100; BMI 31.3
--- NOTE | 2023-09-06 10:41 | MHC.PC.OV ---
Vital Signs 09/06/23 10:41 Height 5 ft 2 in Weight 171 lb BMI 31.3 BP 144/72 H Blood Pressure Location Lt brachial Position Sitting Pulse 82 Pulse Source Pulse Oximeter Temp Source Skin Pulse Oximetry (%) 100 Oxygen Delivery Method Room Air Intake Visit Reasons: 3 month f/u Housing Court Judge Required: No Allergies aspirin [Aspirin] Allergy (Mild, Verified 09/06/23 10:42) Abdominal Pain Penicillins Allergy (Mild, Verified 09/06/23 10:42) NAUSEA/STOMACH PAIN hydrochlorothiazide Allergy (Unknown, Verified 09/06/23 10:42) hypokalemia lisinopril Allergy (Unknown, Verified 09/06/23 10:42) ? swelling [id number] Reductase Inhibitor Allergy (Unknown, Verified 09/06/23 10:42) Muscle cramps ibuprofen [From Motrin] Adverse Reaction (Unknown, Verified 09/06/23 10:42) Abdominal Pain Medication List - Last Reconciled 09/06/23 by Junior Zayas MD [adult pull ups As directed] amlodipine 5 mg PO DAILY aspirin 81 mg PO DAILY 90 days blood pressure monitor (Blood Pressure Kit) As directed blood sugar diagnostic (OneTouch Verio test strips) As directed twice a day, fasting am and at bedtime cholecalciferol (vitamin D3) 50 mcg PO DAILY 90 days clopidogrel (Plavix) 75 mg PO DAILY ezetimibe (Zetia) 10 mg PO DAILY fluticasone propion-salmeterol 250-50 mcg/dose (Wixela Inhub) 1 ea PO BID furosemide 20 mg PO DAILY insulin glargine (Lantus Solostar U-100 Insulin) 18 units subcut BEDTIME lancets As directed twice a day losartan 50 mg PO DAILY metformin 500 mg PO BID metoprolol tartrate 100 mg PO BID nebulizers (Altera Nebulizer System) As directed updraft Q 4 hours prn with albuterol pantoprazole 40 mg PO BID@0630,1630 rosuvastatin 20 mg PO DAILY semaglutide 1 mg (0.75 mL) subcut QWEEK 4 weeks tizanidine 4 mg PO BEDTIME PRN Tobacco use date assessed: 09/06/23 Fall risk assessment: No Falls in past year Last assessed Fall Risk: 09/06/23 HPI 3 month f/u HPI Details 73-year-old obese female with coronary artery disease diabetes mellitus hypercholesterolemia GERD hypertension last seen in May 2023. Patient is here for follow-up patient did see Cardiology 09/05/2023. Brilinta changed to Plavix due to bleeding. As for the asthma has been having problems with breathing.. Prior to that patient was sent to the hospital due to the anemia that was found patient was given transfusion [facility] Medical History (Updated 09/06/23 @ 11:28 by Junior Zayas MD) Coronary artery disease Hypercholesterolemia Orthopnea Gastroparesis Headache Lower extremity edema Urinary frequency Right shoulder pain Constipation Abdominal bloating Shoulder pain, right Hip pain, left Nasal congestion Chest pain NSTEMI (non-ST elevated myocardial infarction) Fall HLD (hyperlipidemia) Colon cancer screening Pleural effusion, right Nocturia more than twice per night Glaucoma Cataract of left eye Renal cyst Preop exam for internal medicine On beta kamryn at home Vitamin D deficiency Osteoporosis Restless leg syndrome Type 2 diabetes mellitus with diabetic polyneuropathy Tubal ligation evaluation Adrenal adenoma Pulmonary nodule Fracture of toe of left foot Positive MAGGIE (antinuclear antibody) Osteoarthritis of both knees Osteopenia Ulnar neuropathy Asthma GERD (gastroesophageal reflux disease) Obesity (BMI 30-39.9) Surgical History Hx of right cataract extraction History of esophagogastroduodenoscopy (EGD) Hx of colonoscopy History of breast biopsy History of tubal ligation History of laparoscopic cholecystectomy Family History Mother HTN (hypertension) Diabetes Brother Lung cancer Sister Cancer, colon Daughter Uterine cancer Father Prostate cancer Social History Household Members: Spouse Household Members Other:: Granddaughter is FARM MACHINERY SET UP MECHANIC lives upstairs Housing: Other Housing Other:: m2 family house Are you a primary mall plant caretaker to a significant other at home: No Do you presently have visiting nurse or other home services: Yes (FARM MACHINERY SET UP MECHANIC every day) Alcohol intake: never Patient Tobacco Use Status: Former Tobacco user Quit Date: quit years ago Tobacco use type: Cigarette e-Cigarette/Vaping Use: Never Used Second Hand Smoke Exposure: No service: No Current occupational status: retired and disabled Cognitive needs: No Hearing needs: No Vision needs: Yes (glasses) Questionnaire Thrive Questionnaire Date Thrive assessed: 08/15/23 AUDIT C Alcohol Use Questionnaire (AUDIT-C) 1. How often do you have a drink containing alcohol?: Never 3. How often do you have six or more drinks on one occasion?: Never Total Score: 0 QUYNH-7 AMB Questionnaire QUYNH-7 Date QUYNH - 7 assessed: 09/19/22 Source: Developed by Drs. Jhon Cedeño, Cara [place], Isaias Michael and colleagues, with an educational joey from [employer]. Physical exam (Primary Care) Vital Signs: Last Vital Signs Pulse 82 09/06/23 10:41 BP 144/72 H 09/06/23 10:41 Pulse Ox 100 09/06/23 10:41 Oxygen Delivery Method Room Air 09/06/23 10:41 BMI result Body Mass Index 31.3 Tobacco/Smoking Status: Tobacco use Status Tobacco use date assessed 09/06/23 09/06/23 10:42 Patient Tobacco Use Status Former Tobacco user 09/06/23 10:41 Tobacco use type Cigarette 09/06/23 10:41 e-Cigarette/Vaping Use Never Used 09/06/23 10:41 Thrive Assessment: Date of Thrive Assessment Date Thrive assessed 08/15/23 09/06/23 10:41 Const General: alert; No acute distress Eyes Conjunctivae: conjunctivae normal Resp Auscultation: clear to auscultation bilaterally Cardio Rate: regular rate Rhythm: regular rhythm GI Inspection: Yes normal to inspection Extrem General: Yes normal to inspection and No edema Assessment and Plan Assessment & Plan (1) Coronary artery disease: Comment: echo normal LV 60-65% June 2019, May 2023 distal LAD drug-eluting stent Code(s): I25.10 - Atherosclerotic heart disease of [place] coronary artery without angina pectoris Qualifiers: Coronary Disease-Associated Artery/Lesion type: [place] artery [place] vs. transplanted heart: [place] heart Associated angina: without angina Qualified Code(s): I25.10 - Atherosclerotic heart disease of [place] coronary artery without angina pectoris Plan: Control the cholesterol, weight, blood pressure, diabetes continue with aspirin and Plavix (2) Anemia: Code(s): D64.9 - Anemia, unspecified Qualifiers: Anemia type: unspecified type Qualified Code(s): D64.9 - Anemia, unspecified Plan: Continue to monitor blood count (3) Type 2 diabetes mellitus with hyperglycemia: Comment: Angel Guerra Code(s): E11.65 - Type 2 diabetes mellitus with hyperglycemia Qualifiers: Diabetes mellitus halfway insulin use: unspecified technician terminal and repeater insulin use status Qualified Code(s): E11.65 - Type 2 diabetes mellitus with hyperglycemia Plan: Decrease the amount of carbohydrate intake, pasta, bread, rice and potatoes are all sugar and that is aside from all the sweet stuff, remember that fruits are good but they are Sweet also. Hemoglobin A1c goal of less than 7.0 patient on Lantus metformin and Ozempic. increase ozempic dose, if hypoglycemia - call (4) Hypertension: Code(s): I10 - Essential (primary) hypertension Plan: Continue with blood pressure medication. Decrease salt intake and exercise continue with metoprolol 100 mg twice a day losartan 50 mg once a day and amlodipine 5 mg once a (5) Obesity (BMI 30-39.9): Code(s): E66.9 - Obesity, unspecified Plan: Diet and exercise (6) Hypercholesterolemia: Comment: Patient cannot tolerate statins Code(s): E78.00 - Pure hypercholesterolemia, unspecified Plan: Avoid fried foods, chicken skin, eggs, butter margarine, pastries and meat. Be it pork or beef they have a lot of cholesterol LDL goal of less than 70 and triglyceride of less than 150. Patient on atorvastatin 40 mg once a day and Zetia 10 mg once a day. LDL goal < 70 - change atorvastatin to rosuvastatin Orders: Orders Magnesium Today E11.65 - Type 2 diabetes mellitus with hyperglycemia Phosphorus Today E11.65 - Type 2 diabetes mellitus with hyperglycemia Ferritin Today D64.9 - Anemia, unspecified IRON PROFILE Today D64.9 - Anemia, unspecified Lipid Panel 3 Months E78.00 - Pure hypercholesterolemia, unspecified Basic Metabolic Panel Today E11.65 - Type 2 diabetes mellitus with hyperglycemia Complete Blood Count Auto Diff Today D64.9 - Anemia, unspecified Reticulocyte Count Today D64.9 - Anemia, unspecified Vitamin B12 and Folate Today D64.9 - Anemia, unspecified Comprehensive Met. Panel 3 Months E78.00 - Pure hypercholesterolemia, unspecified Medications: New semaglutide 1 mg (0.75 mL) subcut QWEEK 4 weeks 3 mL 3RF E11.65 - Type 2 diabetes mellitus with hyperglycemia rosuvastatin 20 mg PO DAILY 30 tabs 3RF E78.00 - Pure hypercholesterolemia, unspecified Coding Level of Care Code Est Pt Level 4 (05203) Diagnoses Coronary artery disease involving [place] coronary artery of [place] heart without angina pectoris I25.10 Coronary Disease-Associated Artery/Lesion type: [place] artery [place] vs. transplanted heart: [place] heart Associated angina: without angina Anemia D64.9 Anemia type: unspecified type Type 2 diabetes mellitus with hyperglycemia, unspecified whether technician terminal and repeater insulin use E11.65 Diabetes mellitus halfway insulin use: unspecified technician terminal and repeater insulin use status Hypertension I10 Obesity (BMI 30-39.9) E66.9 Hypercholesterolemia E78.00
== END 2023-09-06 11:53 | disposition home or self-care (01) ==
PROVIDERS: PCP Internal Medicine; Visit Provider Internal Medicine
DX: E11.65 Type 2 diabetes mellitus with hyperglycemia (principal); E66.9 Obesity, unspecified; Z68.31 Body mass index [BMI] 31.0-31.9, adult; I25.10 Atherosclerotic heart disease of native coronary artery without angina pectoris; D64.9 Anemia, unspecified; I10 Essential (primary) hypertension; E78.00 Pure hypercholesterolemia, unspecified
CPT/HCPCS: 99214

== ENCOUNTER 2023-09-12 09:02 | Outpatient (AMB) | payer OTHER, SELFPAY ==
[2023-07-31 10:06] VITALS: BP 142/70; BP 152/84; BMI 31.9
[2023-08-29 08:07] VITALS: BP 142/70; BP 152/84; BMI 31.9
--- NOTE | 2023-09-12 09:06 | A.OFFVIS_ITS ---
Intake Vital Signs 09/12/23 09:08 Height 5 ft 2 in Weight 171 lb 15.369 oz BMI 31.4 BP 147/65 H Blood Pressure Location Lt brachial Position Sitting Pulse 87 Intake Visit Reasons: ed follow up Intake Note: Anahy presents in the office as a follow up to the ED. CC: She states that she is having some fatigued and her asthma is acting up. Supervisory Aide Required: Yes Supervisory Aide Name: daughter Allergies aspirin [Aspirin] Allergy (Mild, Verified 09/12/23 09:09) Abdominal Pain Penicillins Allergy (Mild, Verified 09/12/23 09:09) NAUSEA/STOMACH PAIN hydrochlorothiazide Allergy (Unknown, Verified 09/12/23 09:09) hypokalemia lisinopril Allergy (Unknown, Verified 09/12/23 09:09) ? swelling Zfrghhg-JEY-QrI Reductase Inhibitor Allergy (Unknown, Verified 09/12/23 09:09) Muscle cramps ibuprofen [From Motrin] Adverse Reaction (Unknown, Verified 09/12/23 09:09) Abdominal Pain HPI ed follow up HPI Details LAST VISIT: Abdominal bloating Occasional postprandial abdominal bloating depending on what she eats. Patient reports that she is moving her bowels better now that he is taking Colace. Constipation Continue Colace. Patient was encouraged to increase fluid intake and activity to promote better bowel motility. Activity as tolerated. Patient will start cardiac rehab soon GERD (gastroesophageal reflux disease) Continue pantoprazole. Discussed with patient avoiding dietary triggers and late night snacking. Staying upright for minimum 3 hours after meals discussed with patient. Gastroparesis Significantly improved gastroparesis. Patient was encouraged to continue to eat smaller meals. I will see patient in 6 months, sooner on as needed basis. Patient is agreeable to this plan and verbalizes understanding of instructions. She was given the opportunity to ask questions and all questions answered. ? Thank you for allowing me to participate in her care Plan Orders Orders Pancreatic Elastase-1 Today R10.9 Hemoglobin A1c Today E11.9 Medications Refilled docusate sodium 100 mg PO BEDTIME 90 caps 3RF K59.00 pantoprazole 40 mg PO BID 180 tabs 2RF GI CONSULT NOTE FROM DR. ELLSWORTH AND CARDIOLOGY Plan 73 year old Salvadorean speaking female with CAD s/p recent NSTEMI and s/p PCI with stent placement now on Brilinta & aspirin, Type 2 diabetes mellitus (on Insulin), diabetic gastroparesis, hypertension, hyperlipidemia, asthma, obesity, GERD admitted with acute on chronic anemia without overt GI bleeding. Stool occult blood was negative. Unclear if anemia is related to slow GI blood loss versus hemolysis Pt has a hx of colon polyps and is due for a FU colonoscopy. RECOMMENDATIONS:. 1. Follow CBC post transfusion and rech nallely stool for occult blood 2. Hemolysis workup - order placed. 3. If CBC remains stable, pt can be dis charged home and will be scheduled for an outpatient EGD and Colon 4. Pt needs Cardiology clearance for EG D and colon and regarding antiplatelet therapy. ADDENDUM: Pt was seen by Dr Nunez from Cardiology: Hemoglobin levels reviewed. Currently 7.4 this admission. It has been as much as 11.1 in May. Unclear reason for anemia. Not clear if she is having GI blood loss or not. Discussed with Interventional Cardiology, . At this time, we can start Plavix and stop Brilinta. Continue aspirin. At approximately 6 months time from time of PCI, we can stop aspirin as well and just keep on Plavix only. With regard to her chest pressure/fatigue not clear how much of it is cardiac. As she does have residual CAD, anemia could still precipitate symptoms. Hence can give probably another unit of blood. Discussed with family at bedside. Discussed with Dr. Quezada. Discussed with Dr. Bales. TODAY'S VISIT Patient is here today for hospital follow-up. Patient was seen in the ER and admitted in the beginning of August. Patient was admitted with fatigue, shortness of breath, diagnosed with anemia with hemoglobin 7.4. Patient does report that last night she was tired and was short of breath. Patient is using her inhaler and states that she feels better. Patient denies any blood in her stools. Last hemoccult was negative. Patient has blood work ordered by PCP and will go and get a done today. Patient is due to go for colonoscopy, however unfortunately due to her stent there is a risk for interruption before 6 months. Will discuss this with her bench molder apprentice Dr. Bales today. Patient has cardiac rehab today. She is going with her granddaughter. Patient reports that she otherwise has been feeling well. Denies any GI concerning symptoms. Reports that she has been moving her bowels well. Denies melena, hematochezia, unintentional weight loss or ribbon like stools. Patient denies any dyspepsia, dysphagia or odynophagia. She continues to take pantoprazole twice a day. Patient reports that she has been moving her bowels well without any issues. Denies any other GI concerning symptoms. COUNTS INCLUDE 234 BEDS AT THE [facility] Medical History Coronary artery disease Hypercholesterolemia Orthopnea Gastroparesis Headache Lower extremity edema Urinary frequency Right shoulder pain Constipation Abdominal bloating Shoulder pain, right Hip pain, left Nasal congestion Chest pain NSTEMI (non-ST elevated myocardial infarction) Fall HLD (hyperlipidemia) Colon cancer screening Pleural effusion, right Nocturia more than twice per night Glaucoma Cataract of left eye Renal cyst Preop exam for internal medicine On beta kamryn at home Vitamin D deficiency Osteoporosis Restless leg syndrome Type 2 diabetes mellitus with diabetic polyneuropathy Tubal ligation evaluation Adrenal adenoma Pulmonary nodule Fracture of toe of left foot Positive MAGGIE (antinuclear antibody) Osteoarthritis of both knees Osteopenia Ulnar neuropathy Asthma GERD (gastroesophageal reflux disease) Obesity (BMI 30-39.9) Surgical History Hx of right cataract extraction History of esophagogastroduodenoscopy (EGD) Hx of colonoscopy History of breast biopsy History of tubal ligation History of laparoscopic cholecystectomy Family History Mother HTN (hypertension) Diabetes Brother Lung cancer Sister Cancer, colon Daughter Uterine cancer Father Prostate cancer Social History Household Members: Spouse Household Members Other:: Granddaughter is TECHNICAL BUYER lives upstairs Housing: Other Housing Other:: m2 family house Are you a primary md do resident urgent care to a significant other at home: No Do you presently have visiting nurse or other home services: Yes (TECHNICAL BUYER every day) Alcohol intake: never Patient Tobacco Use Status: Former Tobacco user Quit Date: quit years ago Tobacco use type: Cigarette e-Cigarette/Vaping Use: Never Used Second Hand Smoke Exposure: No service: No Current occupational status: retired and disabled Cognitive needs: No Hearing needs: No Vision needs: Yes (glasses) Review of Systems Const Denies weight gain and Denies weight loss ENT Reports no additional complaints, Denies dysphagia and Denies odynophagia Card Reports no additional complaints, Reports dyspnea and Reports dyspnea on exertion Resp Reports dyspnea and Reports dyspnea on exertion GI Denies abdominal pain, Denies belching, Denies melena, Denies bloating, Denies change in bowel habits, Denies dysphagia, Denies excessive flatus, Denies dyspepsia, Denies heartburn, Denies diarrhea, Denies loose stools, Denies nausea, Denies odynophagia and Denies vomiting Reports no additional complaints Musc Reports no additional complaints Neuro Reports no additional complaints Psych Reports no additional complaints Endo Reports no additional complaints Physical Exam Vital Signs: Last Vital Signs Pulse 87 09/12/23 09:08 BP 147/65 H 09/12/23 09:08 BMI result Body Mass Index 31.4 Const General: no acute distress and well developed Nutritional Appearance: obese Orientation/consciousness: patient oriented x3 HEENT Head: Yes normal to inspection, Yes normocephalic and Yes atraumatic Face and sinus: Yes normal facial exam Mouth: Normal oral and palatal mucosa present Throat: Yes posterior oropharynx normal, Yes tonsils normal and Yes uvula midline Eyes General: appearance normal, both eyes and all related structures Neck Neck: Yes normal visual inspection, Yes full ROM and Yes trachea midline Thyroid: Thyroid normal Resp Effort & Inspection: normal respiratory effort, able to speak in complete sentences, no tracheal deviation and symmetric chest movement Auscultation: clear to auscultation bilaterally Cardio Rate: regular rate GI Inspection: Yes normal to inspection, No distended and Yes obesity Palpation (GI): Soft to palpation, not firm, nontender and No hepatosplenomegaly present Auscultation: normal bowel sounds General: Yes no CVA tenderness Back/Spine/Pelvis Back: no CVA tenderness Skin General skin exam: elasticity normal, turgor normal and dry skin Neuro General: patient oriented x3 Psych Appearance: grossly normal Mental Status: mental status grossly normal Assessment & Plan Assessment & Plan (1) Asthma: Code(s): J45.909 - Unspecified asthma, uncomplicated Qualifiers: Asthma complication type: uncomplicated Asthma persistence: intermittent Asthma severity: mild Qualified Code(s): J45.20 - Mild intermittent asthma, uncomplicated (2) Anemia: Code(s): D64.9 - Anemia, unspecified Qualifiers: Anemia type: unspecified type Qualified Code(s): D64.9 - Anemia, unspecified (3) Abdominal bloating: Code(s): R14.0 - Abdominal distension (gaseous) (4) Constipation: Code(s): K59.00 - Constipation, unspecified Qualifiers: Constipation type: slow transit constipation Qualified Code(s): K59.01 - Slow transit constipation (5) GERD (gastroesophageal reflux disease): Code(s): K21.9 - Gastro-esophageal reflux disease without esophagitis Qualifiers: Esophagitis presence: without esophagitis Qualified Code(s): K21.9 - Gastro-esophageal reflux disease without esophagitis (6) Gastroparesis: Code(s): K31.84 - Gastroparesis Plan Continue current med management with pantoprazole. Patient was encouraged to g et her blood work done today before going to cardiac rehab. Will review blood work and discuss with her bench molder apprentice. Patient requested referral to Pulmonary Medicine with provider that speaks Salvadorean. Patient will follow-up in the office in 4-5 weeks, sooner if clinically necessary. Patient is agreeable to this plan and verbalizes understanding of instructions. She was given the opportunity to ask questions and all questions answered. Thank you for allowing me to participate in her care Orders: Referrals 2 Pulmonary Medicine Referral J45.909 - Unspecified asthma, uncomplicated Coding Level of Care Code Est Pt Level 4 (81421) Diagnoses Mild intermittent asthma without complication J45.20 Asthma complication type: uncomplicated Asthma persistence: intermittent Asthma severity: mild Anemia D64.9 Anemia type: unspecified type Abdominal bloating R14.0 Slow transit constipation K59.01 Constipation type: slow transit constipation Gastroesophageal reflux disease without esophagitis K21.9 Esophagitis presence: without esophagitis Gastroparesis K31.84 Time Spent (min) 40 Comment 25 minutes spent with patient and additional 15 minutes spent reviewing her records
[2023-09-12 09:08] VITALS: BP 147/65; PULSE 87; BMI 31.4
== END 2023-09-12 10:02 | disposition home or self-care (01) ==
PROVIDERS: PCP Internal Medicine; Visit Provider Nurse Practitioner Family
DX: J45.20 Mild intermittent asthma, uncomplicated (principal); D64.9 Anemia, unspecified; R14.0 Abdominal distension (gaseous); K59.01 Slow transit constipation; K21.9 Gastro-esophageal reflux disease without esophagitis; K31.84 Gastroparesis
CPT/HCPCS: 99214

== ENCOUNTER 2023-09-12 09:02 | Outpatient (REF) | payer OTHER, SELFPAY ==
[2023-08-29 08:07] VITALS: BP 142/70; BP 152/84; BMI 31.9
[2023-09-12 13:27] LABS: Anion Gap 10 (12-20); Blood Urea Nitrogen 12 mg/dL (9-16); Calcium 9.1 mg/dL (8.4-10.2); Carbon Dioxide 26 mmol/L (22-29); Chloride 108 mmol/L (96-108); Estimated Glomerular Filt Rate > 60; Ferritin 5 ng/mL (10-250); Glucose Random 162 mg/dL (60-115); Iron 20 mcg/dL (30-160); Magnesium 1.7 mg/dL (1.6-2.6); Percent Iron Saturation 5 % (15-50); Phosphorus 3.3 mg/dL (2.7-4.5); Sodium 140 mmol/L (135-145); Total Iron Binding Capacity 404 mcg/dL (228-428); Unsaturated Iron Binding 384 ug/dL
== END 2023-09-12 09:03 | disposition home or self-care (01) ==
LOC: HO.LAB 09:02
PROVIDERS: PCP Internal Medicine; Visit Provider Nurse Practitioner Family
DX: E11.65 Type 2 diabetes mellitus with hyperglycemia (principal); D64.9 Anemia, unspecified
CPT/HCPCS: 36415; 80048; 82607; 82728; 82746; 83540; 83735; 84100; 85007; 85025; 85027; 85045; 99212

== ENCOUNTER 2023-09-12 10:00 | Outpatient (RCR) | payer OTHER, SELFPAY ==
[2023-07-31 10:06] VITALS: BP 142/70; BP 152/84; BMI 31.9
[2023-07-31 11:35] LABS: Glucose, Whole Blood 272 mg/dL (60-115)
--- NOTE | 2023-07-31 11:50 | MHC.CR.ITI ---
[address] [phone] F: [phone] Please see additional notes from [facility] Initial Assessment/ITP Cardiac Rehab Initial Assessment/ITP Start: 07/30/23 07:35 Freq: Status: Active Protocol: Activity Type Activity Date Activity User E-sign Co-sign Detail Recorded Client Recorded Date Recorded By Document 07/31/23 10:06 ARIELUlises [id number] 07/31/23 11:07 ARIELUlises 07/31/23 10:06 Cardiac Rehab ITP Initial [Excercise] -Chemical Engineer Required Yes -Preferred Language Lebanese -Number of sessions approved 36 -Diagnosis Coronary Stenting (PCI) Z98.61,NSTEMI I21.4 -Other Diagnosis CAD, YVETTE LAD, HLD,Type2 DM, Asthma, GERD, Osteoporosis/ Osteopenia -Comments Glaucoma, Cataract R eye, Pulm Nodule, Adrenal Adenoma , + MAGGIE, Ulnar Neur. S/P fall prior to CO. Loses balance when BS high. [Functional Assessment] -6 Min Walk (distance in ft) 950 -METS Achieved 2.38 -Resting HR 80 -Resting BP 152/84 -Resting SpO2 98 -Exercise HR 98 -Exercise BP 142/70 -Exercise SpO2 100 -RPE 12 -Dyspnea No -ECG Summary SR -Comments Main c/o fatigue. No balance issues notes noted. BS 272. [Pre Rehab] -Pre Rehab Home Exercise No -Comments States she feels very tired, SOB, walking with stairs. Daughter expresses Anahy experiences dizziness when she walks in apartment hallway. Daughter reports Anahy reports chest discomfort to but does not tell daughter who is TALENT DEVELOPMENT DIRECTOR. Describes as on right side of chest poking. Stated it happened only one time at rest, and relieved on own within a couple of seconds. Stent, cardiac cath findings were reviewed. Patient asked cath findings. She stated she understood review of cath results and plan per MD note. -Risk Stratification: Low Risk Uncomplicated Participants CO; CABG; angioplasty; atherectomy,No significant left ventricular dysfunction (EF > = 30%) -Assistive Devices Cane,Walker -Comments No falls since CO. [Exercise Plan] [Intervention] -Exercise Prescription NuStep, Recumbent Bike, Recumbent Elliptical, Rower,Treadmill ,UBE,Upright Bike,Weights -Duration Intensity 36 Sessions -Frequency 2-3x/week -Angina with Exercise No [Exercise Education] -Exercise Education Exercise orientation, Exercise safety ,Home exercise, RPE,Self pulse checking,Signs and symptoms, Warmup/cooldown -Date Completed 07/31/23 -Initials CD -Education Summary Reinforced by Supervisor Matrix. RN reviewed the above with abstract clerk and daughter who is TALENT DEVELOPMENT DIRECTOR. Granddaughter will also assist at home. [Exercise Goals] -Exercise Most Days of the Week Yes -Exercise 30-45 mins/day Yes -Target HR Range +20 - +30 beats above resting -Target RPE range 11-13 -Increase METS next 30 days 0.5-1.0 METS Every two weeks -METs goal by Discharge 3 METS -Comments Anahy would like to have less fatigue and be able to do more at home. [Nutrition] [Hyperlipidemia] -Hyperlipidemia Yes -Are lab results available Yes -Lipid Draw Date 06/01/23 -Total Cholesterol 100 -LDL 96 -HDL 42 -Tryglycerides 72 [Diabetes] -Diabetes Type 2 -Fasting Glucose 200 -Date 07/31/23 -HbA1C 7.00 -Monitors Glucose Yes -Frequency 2 [Weight Management] -Height 5 ft 2 in -Weight 72.3 kg -BMI 31.9 -Recommended Diet Diabetic, low fat, salt -Comments Has upcoming appt. with PCP and Lena( Topographical Engineer-08/09) . Was in ER 07/13 for URI, hyperglycemia 07/13. Did not check BS today. She does not like Dexcom. She was encouraged to follow up with educator before 08/09 due to Glucometer and Dexcom results not matching; they will keep a record. Diabetic diet, s/s to report, importance of earlier follow up with MD/ Educator discussed. Reports BS has been > 400. Encouraged to check BS at least QID, and report hyper/ hypoglycemia to MD. Lantus was decreased during hospitalization to 14 units per patient; they will follow up with MD. Lantus was previously 18 units. Encouraged to check BS ta least QID. [Drug/Alchohol Use] -Drug/Alcohol Use No -Comment None [Nutritional Screen (Rate Your Plate)] -Score 38 -Interpretation of Score Many ways to change -Comments Encouraged to make an appt. with dietitian at Endocrinology. Has an upcoming appt. with Topographical Engineer . [Nutrition Plan] [Intervention] -Referral(s) Nutrition Brochures [Nutrition Education] -Nutrition Education Diabetes and excercise, Hydration, Nutrition, Reading food labels,Signs and symptoms of Hypo/Hyper- glycemia -Date Completed 07/31/23 -Initials CD -Education Summary Above discussed . S/S reviewed through abstract clerk with patient and granddaughter( brought up by Anahy so is referred to as daughter). She feels dry mouth and lack of balance when BS elevated. No hypoglycemia. [Nutrition Goals] -Goals BMI < 25, Fasting BG 80- 120 mg/dL,HDL > 40,LDL < 70, Total CHOL < 200 -Comments She would like to lose weight. No goal at this time. [Psycho/Social] -Stage of Change Action -Learning Barriers None -Occupation Disabled -PHQ9 Score 12 -Interpretation of Score High -Plan of Action/Follow-up Fax to PCP. Language is Lebanese -Patient Self-Reports Depression Yes -Family Support Lives with spouse/others -Comments Other family members live upstairs. Feels depressed, gets teary if alone in the house. Health affects her feelings. She did not wish to discuss other reasons. LIves with spouse who also has health issues. [Psycho/Social Plan] [Intervention] -Referral(s) No consult needed [Psycho/Social Education] -Psycho/Social Education Advanced directives, Coping techniques, Depression and CAD,Positive support system, Relaxation Techniques, Reviewed PHQ9 Score w/pt, Signs and symptoms of CAD ,Stress management -Date Completed 07/31/23 -Initials CD -Education Summary Karen, granddaughter is HCP. Likes to cook but sometimes forget stove is on. Daughter states no memory issues. Likes to clean, go to restorationist( [employer]) [Psycho/Social Goals] -Goals Manage/reduce stress -Comments Does not wish to work with a counselor.Would like to go to [place] wih . [Other Core Comp] [Risk Factors] -Risk Factors Dyslipidemia, Hypertension, Obesity, Physical Inactivity -Comments: RF discussed. She had no questions. Expresses change is difficult. [Hypertension] -Hypertention Yes -Resting BP: 152/84 [Tobacco Use] -Patient Tobacco Use Status Former Tobacco user -Tobacco use type Cigarette -Smoking Quit Date quit years ago -Exposure to secondhand smoke No [Heart Failure] -EF% 60-65 -Dyspnea at Rest No -Dyspnea with Exercise Yes [Other Core Comp Plan] [Intervention] -Referral(s) Self Monitoring BP [Other Core Comp Education] -Other Core Comp Education Medication compliance,Risk factor modifications, RPD Scale/SOB management, Understanding hypertension -Date Completed 07/31/23 -Initials CD -Education Summary States she feels well today. Risk Factores that we can/cannot control discussed. No questions. Positive support for coming to cardiac rehab given. [Other Core Comp Goals] -Goals Manage risk factors, Medication compliance, Resting BP < 130/80 -Comments Family fills pill box, patient takes medications on own. They will discuss Lantus dose with MD today. [Medication Plan] [Intervention] -Medications Albuterol Sulfate 90MCG/ Actuation 2 PUffs every 4- 6HRS PRN Albuterol Sulfate 2.5MG( 3ML) nebulizer every 4-6 HRS PRN Amlodipine 5MG Daily ASA 81MG Daily Atorvastatin 40MG HS Vit. D3 50MCG Daily Trulicity 3 MG Weekly Zetia 10MG Daily Advair 250-50 Lantus 18 units at HS Losartan 50MG Daily Metformin 1000MG BID Metoprolol Tartrate 100MG BID Multivitamin 1 tab Daily Pantoprazole 40MG BID Brilinta 90MG BID Tolterodine ER 4MG Daily(2 x 2MG) -Compliance Patient reports compliance w/ prescribed meds [Medication Education] -Education Importance of medication compliance, Medication purpose, Medication schedule, Medication side effects -Date Completed 07/31/23 -Initials CD -Education Summary HCP, Karen, oversees medications. Patient takes on her own. WIll ask PCP to fax updated list. Karen, HCP, will discuss Lantus dose with MD. [Medication Goals] -Goals Adherence to medication compliance -Comments As above [Treatment Times] -Rehab Services with ECG Monitor -Time 1000 -End Time 1130 -Visit Duration 90
[2023-08-27 09:14] VITALS: BP 152/84; BMI 31.9
--- NOTE | 2023-08-27 09:51 | MHC.CR.ITR ---
[address] [phone] F: [phone] Please see additional notes from [facility] Cardiac Rehab Reassessment/ITP Cardiac Rehab Reassessment/ITP Start: 07/30/23 07:35 Freq: Status: Active Protocol: Activity Type Activity Date Activity User E-sign Co-sign Detail Recorded Client Recorded Date Recorded By Document 08/27/23 09:14 ALEJANDRO [id number] 08/27/23 09:42 ALEJANDRO 08/27/23 09:14 Cardiac Rehab Reassessment/ITP [Exercise] -Hypercil Core Transformer Assembler Required No -Preferred Language Macedonian -Progress Note Type 30-Day Note -Total Sessions Attended 7 -Comments Glaucoma, Cataract R eye, Pulm Nodule, Adrenal Adenoma , + MAGGIE, Ulnar Neur. S/P fall prior to DE. Loses balance when BS high. 30 Day Reassessment- Anahy has been consistent with her attendance of cardiac rehab. Her granddaughter, MYAH, comes with patient. VSS. Resting BP 132/ 58,last session , 118/60 with exercise and 110/60 at rest. MAX METS 2.3., with an exercise time of 38-48 minutes. She was sent to ER by PCP for low blood count and was transfused . Her blood sugars have been, in general, better controlled, per patient and CYBER SPECIAL AGENT, since starting Mounjaro. Her BS at last session was 133 , 19, 2 hours after eating(at home), and 226 post exercise. This is the highest it has been in recent visits. Anahy has upcoming Endo and Cardiology appointments. Diabetes and exercise, reducing holiday stress discussed with Anahy and granddaughter. They state understanding. No pain at last session. She reports RPE and indicates if level of exercise is too high for her. [Functional Assessment] -ECG Summary SR with rare PVC -Home-Based Rehab Pt approved for home-based exercise -Fall Risk No [Exercise Plan] [Intervention] -Exercise Prescription NuStep, Recumbent Bike, Recumbent Elliptical, Rower,Treadmill ,UBE,Upright Bike,Weights -Duration Intensity 36 Sessions -Angina with Exercise No -Peak METs 2.3 [Home Exercise] -Comments 30 Day: Granddaughter indicates Anahy has a low level of activity at home. body service team member to review further. [Exercise Education] -Exercise Education Exercise orientation, Exercise safety ,Home exercise, RPE,Self pulse checking,Signs and symptoms, Warmup/cooldown -Date Completed 07/31/23 -Initials CD -Education Summary Reinforced by Reports Analyst. RN reviewed the above with telemetry tech and daughter who is CYBER SPECIAL AGENT. Granddaughter will also assist at home. [Exercise Goals] -Exercise Most Days of the Week Yes -Exercise 30-45 mins/day Yes -Target HR Range +20 - +30 beats above resting -Target RPE range 11-13 -Increase METS next 30 days 0.5-1.0 METS Every two weeks -METs goal by Discharge 3 METS -Comments Anahy would like to have less fatigue and be able to do more at home. 30 Day: Anahy expresses that she enjoys the classes and has been feeling less fatigued since transfusion. Diabetes and exercise, including diet discussed. She has an Endocrinology apt. this week( week of 08/27). [Nutrition] [Hyperlipidemia] -Are lab results available Yes -Hyperlipidemia Yes [Diabetes] -Diabetes Type 2 -Fasting Glucose 200 -Date 07/31/23 -HbA1C 7.00 [Weight Management] -Weight 72.3 kg -BMI 31.9 -Comments Has upcoming appt. with PCP and Lena( Chain Testing Machine Operator-08/09) . Was in ER 07/13 for URI, hyperglycemia 07/13. Did not check BS today. She does not like Dexcom. She was encouraged to follow up with educator before 08/09 due to Glucometer and Dexcom results not matching; they will keep a record. Diabetic diet, s/s to report, importance of earlier follow up with MD/ Educator discussed. Reports BS has been > 400. Encouraged to check BS at least QID, and report hyper/ hypoglycemia to MD. Lantus was decreased during hospitalization to 14 units per patient; they will follow up with MD. Lantus was previously 18 units. Encouraged to check BS ta least QID. 30 Day-Lantus increased to 18 units. Has Endocrinology and Cardiology appt. this week .No weight change. [Drug/Alchohol Use] -Drug/Alcohol Use No -Comment None [Nutrition Plan] [Intervention] -Attended Nutrition Brochures [Nutrition Education] -Nutrition Education Diabetes and excercise, Hydration, Nutrition, Reading food labels,Signs and symptoms of Hypo/Hyper- glycemia -Date Completed 07/31/23 -Initials CD -Education Summary Above discussed . S/S reviewed through telemetry tech with patient and granddaughter( brought up by Anahy so is referred to as daughter). She feels dry mouth and lack of balance when BS elevated. No hypoglycemia. 30 Day-BS better controlled on Mounjaro. Anahy has an upcoming Endo appointment. [Nutrition Goals] -Goals BMI < 25, Fasting BG 80- 120 mg/dL,HDL > 40,LDL < 70, Total CHOL < 200 -Comments She would like to lose weight. No goal at this time. [Psycho/Social] -Stage of Change Action -Occupation Disabled -PHQ9 Score 12 -Interpretation of Score High -Plan of Action/Follow-up Fax to PCP. Language is Macedonian 30 DAY-PHQ9 faxed to PCP. No changes at this time. Family is supportive. Granddaughter will discuss case management assistance with MD's. -Patient Self-Reports Depression Yes [Psycho/Social Plan] [Intervention] -Attended No consult needed [Psycho/Social Education] -Psycho/Social Education Advanced directives, Coping techniques, Depression and CAD,Positive support system, Relaxation Techniques, Reviewed PHQ9 Score w/pt, Signs and symptoms of CAD ,Stress management -Date Completed 07/31/23 -Initials CD -Education Summary bradly Jones is HCP. Likes to cook but sometimes forgets stove is on. Daughter states no memory issues. Likes to clean, go to jew( [facility]) 30 Day Reasessment: [facility] Hol Stress handout given and reviewed. Self Care discussed for patient and CYBER SPECIAL AGENT. CYBER SPECIAL AGENT, granddaughter, will discuss case management assistance with MD. [Psycho/Social Goals] -Goals Manage/reduce stress -Comments Does not wish to work with a counselor.Would like to go to [facility] . 30 Day-No change from above [Other Core Comp] [Hypertension] -Hypertention Yes -Resting BP: 152/84 -Comments 30 Day- BP's were 132/58 at rest, 118/60 with exercise and 110/60 post exercise. [Tobacco Use] -Change in Use No [Heart Failure] -Dyspnea at Rest No -Dyspnea with Exercise Yes -Comments 30 Day-No SOB with exercise noted at this time. No complaints when asked. [Other Core Comp Plan] [Intervention] -Attended Self Monitoring BP [Other Core Comp Education] -Other Core Comp Education Medication compliance,Risk factor modifications, RPD Scale/SOB management, Understanding hypertension -Date Completed 07/31/23 -Initials CD -Education Summary States she feels well today. Risk Factores that we can/cannot control discussed. No questions. Positive support for coming to cardiac rehab given. 30 Day-Risk Factors discussed. No c /o SOB at this time. Diabetes and CAD reinforced. Positive velásquez; pport given for attending Cardiac Rehab and reaching out to MD's regarding elevated BS on entrance to [facility]. [Other Core Comp Goals] -Goals Manage risk factors, Medication compliance, Resting BP < 130/80 -Comments Family fills pill box, patient takes medications on own. They will discuss Lantus dose with MD today. 30 Day- Anahy was originally changed to Ozempic and then Mounjaro while in Cardiac Rehab. PAtient and CYBER SPECIAL AGENT report better control of BS since starting Mounjaro. [Medication Plan] [Intervention] -Medications Albuterol Sulfate 90MCG/ Actuation 2 PUffs every 4- 6HRS PRN Albuterol Sulfate 2.5MG( 3ML) nebulizer every 4-6 HRS PRN Amlodipine 5MG Daily ASA 81MG Daily Atorvastatin 40MG HS Vit. D3 50MCG Daily Zetia 10MG Daily Wixela 250- 50mcg/dose BID Lantus 18 units at HS Losartan 50MG Daily Metformin 500 MG BID Metoprolol Tartrate 100MG BID Multivitamin 1 tab Daily Pantoprazole 40MG BID Plavix 75MG Daily Tolterodine ER 4MG Daily(2 x 2MG) Mounjaro-2.5MG weekly Furosemide 20MG Daily Tizanidine 4MG HS Alison-180MG Daily -Compliance Patient reports compliance w/ prescribed meds [Medication Education] -Education Importance of medication compliance, Medication purpose, Medication schedule, Medication side effects -Date Completed 07/31/23 -Initials CD -Education Summary HCP, Karen, oversees medications. Patient takes on her own. WIll ask PCP to fax updated list. Karen, HCP, will discuss Lantus dose with MD. 30 Day- Lantus increased back to original 18 units(decreased in hospital) and Mounjaro started. Tizanidine is helping with leg cramps. Med list updated. [Medication Goals] -Goals Adherence to medication compliance -Comments As above 30 Day-tory GLASGOW, continues to assist.
[2023-09-18 15:03] VITALS: BP 142/70; BP 152/84; BMI 31.9
--- NOTE | 2023-09-19 07:46 | MHC.CR.ITD ---
[address] [phone] F: [phone] Please see additional notes from [facility] Discharge/ITP Cardiac Rehab Discharge/ITP Start: 07/30/23 07:35 Freq: Status: Active Protocol: Activity Type Activity Date Activity User E-sign Co-sign Detail Recorded Client Recorded Date Recorded By Document 09/18/23 15:03 ALEJANDRO [id number] 09/18/23 15:14 ARIELUlises 09/18/23 15:03 Cardiac Rehab Discharge/ITP [Exercise] -Desk Lieutenant Required No -Preferred Language Cape Verdean -Total Sessions Attended 8 -Comments Glaucoma, Cataract R eye, Pulm Nodule, Adrenal Adenoma , + MAGGIE, Ulnar Neur. S/P fall prior to [place]. Loses balance when BS high. 30 Day Reassessment- Anahy has been consistent with her attendance of cardiac rehab. Her granddaughter, MYAH, comes with patient. VSS. Resting BP 132/ 58,last session , 118/60 with exercise and 110/60 at rest. MAX METS 2.3., with an exercise time of 38-48 minutes. She was sent to ER by PCP for low blood count and was transfused . Her blood sugars have been, in general, better controlled, per patient and JAVA CORE DEVELOPER, since starting Mounjaro. Her BS at last session was 133 , 190, 2 hours after eating(at home), and 226 post exercise. This is the highest it has been in recent visits. Anahy has upcoming Endo and Cardiology appointments. Diabetes and exercise, reducing holiday stress discussed with Anahy and granddaughter. They state understanding. No pain at last session. She reports RPE and indicates if level of exercise is too high for her. Discharge-- Patient/ family called to report Anahy would no longer be attending cardiac rehab. Post assessments were unable to be completed. Anahy had consistently attended with her granddaughter who was also her HCP and JAVA CORE DEVELOPER . Anahy was gradually increasing her exercise time and intensity. Max Mets was 2. 5. Her BS was better controlled with an adjustment in her medication. Lindaonmaikel Glucose on 09/12 23 at lab was 164VSS. Tel. SR. She attended one session since last ITP. Granddaughter expressed stress she was feeling with care of both grandparents. Anahy had expressed some SOB the evening before her last session; she had taken Albuterol MDI. Dr. Miller, per granddaughter, patient was to restart her Wixela BID, as ordered. Anahy had apparently stopped inhaler on her own. [Functional Assessment] -6 Min Walk (distance in ft) 950 -METS Achieved 2.38 -Resting HR 80 -Resting BP 152/84 -Resting SpO2 98 -Exercise HR 98 -Exercise BP 142/70 -RPE 12 -ECG Summary SR with rare PVC -Fall Risk No [Exercise Plan] [Intervention] -Exercise Prescription NuStep, Recumbent Bike, Recumbent Elliptical, Rower,Treadmill ,UBE,Upright Bike,Weights -Duration Intensity 36 Sessions -Exercise Minutes/Day 45 -Exercise Days/Week 2 -Angina with Exercise No -Peak METs 2.5 [Home Exercise] -Comments 30 Day: Granddaughter indicates Anahy has a low level of activity at home. technical assoc to review further. 09/13/23-As above . No change. [Exercise Education] -Exercise Education Exercise orientation, Exercise safety ,Home exercise, RPE,Self pulse checking,Signs and symptoms, Warmup/cooldown -Date Completed 07/31/23 -Initials CD -Education Summary Reinforced by Relief Worker. RN reviewed the above with explosive operator and daughter who is JAVA CORE DEVELOPER. Granddaughter will also assist at home. Discharge-S/S to report, RPE, warm up/cool down, and Diabetic considerations were reinforced with Anahy and granddaughter; they expressed understanding. Mets increased from 2.3-2.5. [Exercise Goals] -Exercise Most Days of the Week Yes -Exercise 30-45 mins/day Yes -Target HR Range +20 - +30 beats above resting -Target RPE range 11-13 -Increase METS next 30 days 0.5-1.0 METS Every two weeks -METs goal by Discharge 3 METS -Comments Anahy would like to have less fatigue and be able to do more at home. 30 Day: Anahy expresses that she enjoys the classes and has been feeling less fatigued since transfusion. Diabetes and exercise, including diet discussed. She has an Endocrinology appt. this week (week of 08/27) . Discharge- Family called to express that patient will not be returning to cardiac rehab. RN will reach out to discuss reason(s). [Nutrition] [Hyperlipidemia] -Are lab results available Yes -Hyperlipidemia Yes -Lipid Draw Date 06/01/23 -Total Cholesterol 100 -LDL 96 -HDL 42 -Tryglycerides 72 -Comments Discharge-No repeat labs at this time. [Diabetes] -Diabetes Type 2 -Fasting Glucose 200 -Date 07/31/23 -HbA1C 9.60 -Date 08/13/23 -Medication Changes Yes: Lantus increased, Mounjaro started. -Comments Discharge- Random BS, at lab, on 09/12/23 was 162. Blood Sugar better controlled with change in medication. [Weight Management] -Weight 72.3 kg -BMI 31.9 -Comments Has upcoming appt. with PCP and Lena( Stump Blower-08/09) . Was in ER 07/13 for URI, hyperglycemia 07/13. Did not check BS today. She does not like Dexcom. She was encouraged to follow up with educator before 08/09 due to Glucometer and Dexcom results not matching; they will keep a record. Diabetic diet, s/s to report, importance of earlier follow up with MD/ Educator discussed. Reports BS has been > 400. Encouraged to check BS at least QID, and report hyper/ hypoglycemia to MD. Lantus was decreased during hospitalization to 14 units per patient; they will follow up with MD. Lantus was previously 18 units. Encouraged to check BS ta least QID. 30 Day-Lantus increased to 18 units. Has Endocrinology and Cardiology appt. this week . No weight change. Discharge- Mounjaro started. Lantus increased as above. Last weight was 78. 5KG. Patient/ family expresses weight at home and at GI indicates a weight loss of two pounds. She was to restart maintenance inhaler per Dr. MILLER. [Drug/Alchohol Use] -Drug/Alcohol Use No -Comment None [Nutrition Plan] [Intervention] -Attended Nutrition Brochures [Nutrition Education] -Nutrition Education Diabetes and excercise, Hydration, Nutrition, Reading food labels,Signs and symptoms of Hypo/Hyper- glycemia -Date Completed 07/31/23 -Initials CD -Education Summary Above discussed . S/S reviewed through explosive operator with patient and granddaughter( brought up by Anahy so is referred to as daughter). She feels dry mouth and lack of balance when BS elevated. No hypoglycemia. 30 Day-BS better controlled on Mounjaro. Anahy has an upcoming Endo appointment. Discharge-Anahy had Cardiology and Endo appointments but has not returned since these appointments. [Nutrition Goals] -Goals BMI < 25, Fasting BG 80- 120 mg/dL,HDL > 40,LDL < 70, Total CHOL < 200 -Comments She would like to lose weight. No goal at this time. [Psycho/Social] -Stage of Change Action -Occupation Disabled -PHQ9 Score 12 -Interpretation of Score High -Plan of Action/Follow-up Fax to PCP. Language is Cape Verdean 30 DAY-PHQ9 faxed to PCP. No changes at this time. Family is supportive. Granddaughter will discuss case management assistance with MD's. Discharge- Granddaughter was looking into assistance at home as she found the care for her grandparents overwhelming at times. Anahy and prefer family to assist. -Patient Self-Reports Depression Yes [Psycho/Social Plan] [Intervention] -Attended No consult needed [Psycho/Social Education] -Psycho/Social Education Advanced directives, Coping techniques, Depression and CAD,Positive support system, Relaxation Techniques, Reviewed PHQ9 Score w/pt, Signs and symptoms of CAD ,Stress management -Date Completed 07/31/23 -Initials CD -Education Summary bradly Jones is HCP. Likes to cook but sometimes forgets stove is on. Daughter states no memory issues. Likes to clean, go to restorationism( [facility] 30 Day Reasessment: [facility] Stress handout given and reviewed. Self Care discussed for patient and JAVA CORE DEVELOPER. JAVA CORE DEVELOPER, granddaughter, will discuss case management assistance with MD. [Psycho/Social Goals] -Goals Manage/reduce stress -Comments Does not wish to work with a counselor.Would like to go to [facility] . 30 Day-No change from above [Other Core Comp] [Hypertension] -Hypertention Yes -Resting BP: 152/84 -Comments 30 Day- BP's were 132/58 at rest, 118/60 with exercise and 110/60 post exercise. Discharge-BP on 09/12/23 was 108 /54 pre exercise,150/80 with exercise, and 112/64 post exercise. [Tobacco Use] -Change in Use No [Heart Failure] -Dyspnea at Rest No -Dyspnea with Exercise Yes -Comments 30 Day-No SOB with exercise noted at this time. No complaints when asked. Discharge -Anahy had taken Albuterol before last session. Anahy had noted some SOB the previous evening. She saw PCP who instructed that Anahy restart taking Wixela BID as ordered( she apparently had stopped on own). O2 Sat 97 -98%. No SOB noted. [Other Core Comp Plan] [Intervention] -Attended Self Monitoring BP [Other Core Comp Education] -Other Core Comp Education Medication compliance,Risk factor modifications, RPD Scale/SOB management, Understanding hypertension -Date Completed 07/31/23 -Initials CD -Education Summary States she feels well today. Risk Factores that we can/cannot control discussed. No questions. Positive support for coming to cardiac rehab given. 30 Day-Risk Factors discussed. No c /o SOB at this time. Diabetes and CAD reinforced. Positive velásquez; pport given for attending Cardiac Rehab and reaching out to MD's regarding elevated BS on entrance to [facility]. Discharge-Med compliance, risk modification discussed with family and Anahy who state understanding. Granddaughter, JAVA CORE DEVELOPER, reviewed/ updated medication with PCP. Anahy was initially not clear on medications she was taking. [Other Core Comp Goals] -Goals Manage risk factors, Medication compliance, Resting BP < 130/80 -Comments Family fills pill box, patient takes medications on own. They will discuss Lantus dose with MD today. 30 Day- Anahy was originally changed to Ozempic and then Mounjaro while in Cardiac Rehab. Patient and JAVA CORE DEVELOPER report better control of BS since starting Mounjaro. Discharge- above. VSS. Family/patient express understanding of risk modification, making one change at a time. [Medication Plan] [Intervention] -Medications Albuterol Sulfate 90MCG/ Actuation 2 PUffs every 4- 6HRS PRN Albuterol Sulfate 2.5MG( 3ML) nebulizer every 4-6 HRS PRN Amlodipine 5MG Daily ASA 81MG Daily Atorvastatin 40MG HS Vit. D3 50MCG Daily Zetia 10MG Daily Wixela 250- 50mcg/dose BID Lantus 18 units at HS Losartan 50MG Daily Metformin 500 MG BID Metoprolol Tartrate 100MG BID Multivitamin 1 tab Daily Pantoprazole 40MG BID Plavix 75MG Daily Tolterodine ER 4MG Daily(2 x 2MG) Mounjaro-2.5MG weekly Furosemide 20MG Daily Tizanidine 4MG HS Alison-180MG Daily -Compliance Patient reports compliance w/ prescribed meds [Medication Education] -Education Importance of medication compliance, Medication purpose, Medication schedule, Medication side effects -Date Completed 07/31/23 -Initials CD -Education Summary HCP, Karen, oversees medications. Patient takes on her own. WIll ask PCP to fax updated list. Karen, HCP, will discuss Lantus dose with . 30 Day- Lantus increased back to original 18 units(decreased in hospital) and Mounjaro started. Tizanidine is helping with leg cramps. Med list updated. Discharge- Granddaughter, who oversees medication, stated understanding of medications and reviewed med list with Anahy's PCP. Anahy had stopped her inhaler which she had restarted as of last session. [Medication Goals] -Goals Adherence to medication compliance -Comments As above 30 Day-JAVA CORE DEVELOPER, tory, continues to assist. 09/13/23- Discharge: - Granddaughter oversees medication, blood sugars. Updated medication med list was brought in.
== END 2023-09-20 13:28 | disposition home or self-care (01) ==
LOC: HO.CR 10:00
PROVIDERS: PCP Internal Medicine; Visit Provider Internal Medicine Cardiovascular Disease
DX: I21.4 Non-ST elevation (NSTEMI) myocardial infarction (principal)
CPT/HCPCS: 82947; 93798

== ENCOUNTER → 2023-10-03 11:22 | Outpatient (BNV) | payer OTHER, SELFPAY ==
[2023-09-18 15:03] VITALS: BP 142/70; BP 152/84; BMI 31.9
== END ==
PROVIDERS: PCP Internal Medicine; Visit Provider Internal Medicine
DX: D50.9 Iron deficiency anemia, unspecified (principal)
CPT/HCPCS: 99204; 99213; 99214; G2211

== ENCOUNTER 2023-10-15 10:49 | Outpatient (REF) | payer OTHER, SELFPAY | END 2023-10-15 10:50 | disposition home or self-care (01) | LOC: HO.MDS 10:49 | PROVIDERS: Visit Provider Internal Medicine | DX: D50.9 Iron deficiency anemia, unspecified (principal) | CPT/HCPCS: 96374; J1756 ==

== ENCOUNTER 2023-10-17 08:54 | Outpatient (AMB) | payer OTHER, SELFPAY ==
[2023-08-29 08:07] VITALS: BP 142/70; BP 152/84; BMI 31.9
--- NOTE | 2023-10-17 08:59 | MHC.OFFVIS ---
Intake Vital Signs 10/17/23 09:04 Height 5 ft 2 in Weight 175 lb BMI 32.0 BP 141/60 H Blood Pressure Location Lt brachial Position Sitting Pulse 76 Intake Visit Reasons: 5 week follow up Intake Note: Patient follow up abdominal pain. Patient denies any GI issues. Renewals Representative Required: No Accompanied by: Family/Other Allergies aspirin [Aspirin] Allergy (Mild, Verified 10/17/23 08:59) Abdominal Pain Penicillins Allergy (Mild, Verified 10/17/23 08:59) NAUSEA/STOMACH PAIN hydrochlorothiazide Allergy (Unknown, Verified 10/17/23 08:59) hypokalemia lisinopril Allergy (Unknown, Verified 10/17/23 08:59) ? swelling Gkjevjv-NHC-VaV Reductase Inhibitor Allergy (Unknown, Verified 10/17/23 08:59) Muscle cramps ibuprofen [From Motrin] Adverse Reaction (Unknown, Verified 10/17/23 08:59) Abdominal Pain HPI 5 week follow up HPI Details LAST VISIT: Asthma Anemia Abdominal bloating Constipation GERD (gastroesophageal reflux disease) Gastroparesis Plan Continue current med management with pantoprazole. Patient was encouraged to get her blood work done today before going to cardiac rehab. Will review blood work and discuss with her wood tile installer. Patient requested referral to Pulmonary Medicine with provider that speaks Haitian. Patient will follow-up in the office in 4-5 weeks, sooner if clinically necessary. Patient is agreeable to this plan and verbalizes understanding of instructions. She was given the opportunity to ask questions and all questions answered. ? Thank you for allowing me to participate in her care Orders Referrals Pulmonary Medicine Referral [phone] TODAY'S VISIT Patient is here today for follow-up, patient is accompanied by her daughter. Patient continues to move her bowels better now. Patient is not having any abdominal pain or discomfort. She continues to take pantoprazole twice a day and her symptoms of acid reflux are suppressed. Patient feels bloated occasionally, however she has been feeling better now. Patient is eating more often and smaller meals. Patient stopped going for cardiac rehab. Has appointment with botany professor end of this month. Patient has appointment with wood tile installer in the beginning of December. Will ask for risk stratification [facility] Medical History Coronary artery disease Hypercholesterolemia Orthopnea Gastroparesis Headache Lower extremity edema Urinary frequency Right shoulder pain Constipation Abdominal bloating Shoulder pain, right Hip pain, left Nasal congestion Chest pain NSTEMI (non-ST elevated myocardial infarction) Fall HLD (hyperlipidemia) Colon cancer screening Pleural effusion, right Nocturia more than twice per night Glaucoma Cataract of left eye Renal cyst Preop exam for internal medicine On beta kamryn at home Vitamin D deficiency Osteoporosis Restless leg syndrome Type 2 diabetes mellitus with diabetic polyneuropathy Tubal ligation evaluation Adrenal adenoma Pulmonary nodule Fracture of toe of left foot Positive MAGGIE (antinuclear antibody) Osteoarthritis of both knees Osteopenia Ulnar neuropathy Asthma GERD (gastroesophageal reflux disease) Obesity (BMI 30-39.9) Surgical History Hx of right cataract extraction History of esophagogastroduodenoscopy (EGD) Hx of colonoscopy History of breast biopsy History of tubal ligation History of laparoscopic cholecystectomy Family History Mother HTN (hypertension) Diabetes Brother Lung cancer Sister Cancer, colon Daughter Uterine cancer Father Prostate cancer Social History Household Members: Spouse Household Members Other:: Granddaughter is DESULFURIZER OPERATOR lives upstairs Housing: Other Housing Other:: m2 family house Are you a primary director career services to a significant other at home: No Do you presently have visiting nurse or other home services: Yes (DESULFURIZER OPERATOR every day) Alcohol intake: never Patient Tobacco Use Status: Former Tobacco user Quit Date: quit years ago Tobacco use type: Cigarette e-Cigarette/Vaping Use: Never Used Second Hand Smoke Exposure: No service: No Current occupational status: retired and disabled Cognitive needs: No Hearing needs: No Vision needs: Yes (glasses) Review of Systems Const Denies weight gain and Denies weight loss ENT Reports no additional complaints, Denies dysphagia and Denies odynophagia Card Reports no additional complaints Resp Reports no additional complaints GI Denies abdominal pain, Denies belching, Denies melena, Denies bloating, Denies change in bowel habits, Denies dysphagia, Denies excessive flatus, Denies dyspepsia, Denies heartburn, Denies diarrhea, Denies loose stools, Denies nausea, Denies odynophagia and Denies vomiting Musc Reports no additional complaints Neuro Reports no additional complaints Psych Reports no additional complaints Endo Reports no additional complaints Physical Exam Vital Signs: Last Vital Signs Pulse 76 10/17/23 09:04 BP 141/60 H 10/17/23 09:04 BMI result Body Mass Index 32.0 Const General: healthy appearing, no acute distress and well developed Nutritional Appearance: well nourished Orientation/consciousness: patient oriented x3 Resp Effort & Inspection: normal respiratory effort, able to speak in complete sentences, no tracheal deviation and symmetric chest movement Auscultation: clear to auscultation bilaterally Cardio Rate: regular rate GI Inspection: Yes normal to inspection and No distended Palpation (GI): Soft to palpation, not firm, nontender and No hepatosplenomegaly present Auscultation: normal bowel sounds General: Yes no CVA tenderness Back/Spine/Pelvis Back: no CVA tenderness Skin General skin exam: elasticity normal, turgor normal and dry skin Neuro General: patient oriented x3 Psych Appearance: grossly normal Mental Status: mental status grossly normal Assessment & Plan Assessment & Plan (1) Anemia: Code(s): D64.9 - Anemia, unspecified Qualifiers: Anemia type: unspecified type Qualified Code(s): D64.9 - Anemia, unspecified (2) Abdominal bloating: Code(s): R14.0 - Abdominal distension (gaseous) (3) Constipation: Code(s): K59.00 - Constipation, unspecified Qualifiers: Constipation type: slow transit constipation Qualified Code(s): K59.01 - Slow transit constipation (4) GERD (gastroesophageal reflux disease): Code(s): K21.9 - Gastro-esophageal reflux disease without esophagitis Qualifiers: Esophagitis presence: without esophagitis Qualified Code(s): K21.9 - Gastro-esophageal reflux disease without esophagitis (5) Gastroparesis: Code(s): K31.84 - Gastroparesis Plan Patient will continue to increase fluid intake and activity to promote better bowel motility. Patient reports that she is feeling better. Patient will report in 6 weeks to discuss colonoscopy. Patient is having appointment with wood tile installer in the beginning December. Will ask for risk stratification. Patient is on Plavix now and aspirin. Both patient and her daughter are agreeable to plan of care and verbalizes understanding of instructions. They were given the opportunity to ask questions and all questions answered. Thank you for allowing me to participate in her care Coding Level of Care Code Est Pt Level 3 (23587) Diagnoses Anemia D64.9 Anemia type: unspecified type Abdominal bloating R14.0 Slow transit constipation K59.01 Constipation type: slow transit constipation Gastroesophageal reflux disease without esophagitis K21.9 Esophagitis presence: without esophagitis Gastroparesis K31.84 Time Spent (min) 30 Comment 20 minutes spent with patient and additional 10 minutes spent reviewing her records
[2023-10-17 09:04] VITALS: BP 141/60; PULSE 76; BMI 32.0
== END 2023-10-17 10:03 | disposition home or self-care (01) ==
PROVIDERS: PCP Internal Medicine; Visit Provider Nurse Practitioner Family
DX: D64.9 Anemia, unspecified (principal); R14.0 Abdominal distension (gaseous); K59.01 Slow transit constipation; K21.9 Gastro-esophageal reflux disease without esophagitis; K31.84 Gastroparesis
CPT/HCPCS: 99213

== ENCOUNTER → 2023-10-17 08:54 | Outpatient (BNVA) | payer OTHER, SELFPAY ==
[2023-09-18 15:03] VITALS: BP 142/70; BP 152/84; BMI 31.9
== END ==
PROVIDERS: PCP Internal Medicine; Visit Provider Nurse Practitioner Family
DX: D64.9 Anemia, unspecified (principal); K59.01 Slow transit constipation; K21.9 Gastro-esophageal reflux disease without esophagitis; K31.84 Gastroparesis; R14.0 Abdominal distension (gaseous)
CPT/HCPCS: 99212

== ENCOUNTER 2023-10-22 10:52 | Outpatient (REF) | payer OTHER, SELFPAY | END 2023-10-22 10:53 | disposition home or self-care (01) | LOC: HO.MDS 10:52 | PROVIDERS: Visit Provider Internal Medicine | DX: D50.9 Iron deficiency anemia, unspecified (principal) | CPT/HCPCS: 96365; J1756 ==

== ENCOUNTER 2023-10-30 10:36 | Outpatient (REF) | payer OTHER, SELFPAY | END 2023-10-30 10:37 | disposition home or self-care (01) | LOC: HO.MDS 10:36 | PROVIDERS: Visit Provider Internal Medicine | DX: J45.50 Severe persistent asthma, uncomplicated (principal) | CPT/HCPCS: 96365; J1756 ==

== ENCOUNTER 2023-10-31 10:15 | Outpatient (AMB) | payer OTHER, SELFPAY ==
[2023-10-31 10:21] VITALS: BP 128/66; PULSE 75; O2SAT 100; BMI 30.7
--- NOTE | 2023-10-31 10:21 | MHC.OFFVIS ---
Intake Vital Signs 10/31/23 10:21 Height 5 ft 2 in Weight 168 lb BMI 30.7 BP 128/66 Blood Pressure Location Rt brachial Position Sitting Pulse 75 Pulse Source Pulse Oximeter Pulse Oximetry (%) 100 Oxygen Delivery Method Room Air Intake Visit Reasons: asthma Maintenance Mechanic 2Nd Shift Required: No Allergies aspirin [Aspirin] Allergy (Mild, Verified 10/31/23 10:24) Abdominal Pain Penicillins Allergy (Mild, Verified 10/31/23 10:24) NAUSEA/STOMACH PAIN hydrochlorothiazide Allergy (Unknown, Verified 10/31/23 10:24) hypokalemia lisinopril Allergy (Unknown, Verified 10/31/23 10:24) ? swelling Heqwggu-OKH-OlV Reductase Inhibitor Allergy (Unknown, Verified 10/31/23 10:24) Muscle cramps ibuprofen [From Motrin] Adverse Reaction (Unknown, Verified 10/31/23 10:24) Abdominal Pain HPI HPI Comments History of Present Illness Details The patient is here for apulmonary evaluation. The patient is a73 y/o woman with a history of asthma. She has been on Wixela and seems to be helpful. Back in the Fall she did go to the ED with a flare up. She is have a CXR that we reviewed with no acute disease. She was treated with prednisone at that time. She did have PFTs back in 2019, which demonstrated limited inspiratory flows at that time. The patient did have a CT scan of the chest that also reviewed back in 2016 that demonstrated a small hiatal hernia and also subcentimeter pulmonary nodules. The patient has not had any further imaging studies to review the pulmonary nodules at this time. [facility] Medical History (Updated 11/01/23 @ 09:46 by Anthony Vu MD) Pulmonary nodules Hiatal hernia Coronary artery disease Hypercholesterolemia Orthopnea Gastroparesis Headache Lower extremity edema Urinary frequency Right shoulder pain Constipation Abdominal bloating Shoulder pain, right Hip pain, left Nasal congestion Chest pain NSTEMI (non-ST elevated myocardial infarction) Fall HLD (hyperlipidemia) Colon cancer screening Pleural effusion, right Nocturia more than twice per night Glaucoma Cataract of left eye Renal cyst Preop exam for internal medicine On beta kamryn at home Vitamin D deficiency Osteoporosis Restless leg syndrome Type 2 diabetes mellitus with diabetic polyneuropathy Tubal ligation evaluation Adrenal adenoma Pulmonary nodule Fracture of toe of left foot Positive MAGGIE (antinuclear antibody) Osteoarthritis of both knees Osteopenia Ulnar neuropathy Asthma GERD (gastroesophageal reflux disease) Obesity (BMI 30-39.9) Surgical History Hx of right cataract extraction History of esophagogastroduodenoscopy (EGD) Hx of colonoscopy History of breast biopsy History of tubal ligation History of laparoscopic cholecystectomy Family History Mother HTN (hypertension) Diabetes Brother Lung cancer Sister Cancer, colon Daughter Uterine cancer Father Prostate cancer Social History Household Members: Spouse Household Members Other:: Granddaughter is STAFF AIR DEFENSE OFFICER lives upstairs Housing: Other Housing Other:: m2 family house Are you a primary long term care social worker to a significant other at home: No Do you presently have visiting nurse or other home services: Yes (STAFF AIR DEFENSE OFFICER every day) Alcohol intake: never Patient Tobacco Use Status: Former Tobacco user Quit Date: quit years ago Tobacco use type: Cigarette e-Cigarette/Vaping Use: Never Used Second Hand Smoke Exposure: No service: No Current occupational status: retired and disabled Cognitive needs: No Hearing needs: No Vision needs: Yes (glasses) Review of Systems Const Denies chills, Denies fatigue, Denies fever(s) and Denies weight gain ENT Denies dizziness Card Denies chest pain and Reports dyspnea on exertion Resp Reports cough and Reports dyspnea on exertion GI Denies hematochezia and Denies change in stool character Musc Denies abnormal gait, Denies muscle weakness, Denies numbness, Denies radiating pain into limb and Denies tingling Neuro Denies abnormal gait, Denies dizziness, Denies numbness and Denies tingling Endo Denies fatigue Physical Exam Vital Signs: Last Vital Signs Pulse 75 10/31/23 10:21 BP 128/66 10/31/23 10:21 Pulse Ox 100 10/31/23 10:21 Oxygen Delivery Method Room Air 10/31/23 10:21 BMI result Body Mass Index 30.7 Const General: healthy appearing, no acute distress and well developed Nutritional Appearance: well nourished Orientation/consciousness: patient oriented x3 Resp Effort & Inspection: normal respiratory effort, able to speak in complete sentences, no tracheal deviation and symmetric chest movement Auscultation: clear to auscultation bilaterally Cardio Rate: regular rate GI Palpation (GI): Soft to palpation and nontender General: Yes no CVA tenderness Back/Spine/Pelvis Back: no CVA tenderness Skin General skin exam: elasticity normal, turgor normal and dry skin Neuro General: patient oriented x3 Psych Appearance: grossly normal Mental Status: mental status grossly normal Assessment & Plan Assessment & Plan (1) Asthma: Code(s): J45.909 - Unspecified asthma, uncomplicated Qualifiers: Asthma complication type: uncomplicated Asthma persistence: intermittent Asthma severity: mild Qualified Code(s): J45.20 - Mild intermittent asthma, uncomplicated (2) Hiatal hernia: Code(s): K44.9 - Diaphragmatic hernia without obstruction or gangrene (3) Pulmonary nodules: Code(s): R91.8 - Other nonspecific abnormal finding of lung field Plan continue Wixela LISA as needed reflux diet sleep with HOB elevated CT chest to f/u pulmonary nodules F/U 2-3 months Orders: Orders [address] chest wo IV con 2 Months R91.8 - Other nonspecific abnormal finding of lung field Coding Level of Care Code New Pt Level 4 (04264) Diagnoses Mild intermittent asthma without complication J45.20 Asthma complication type: uncomplicated Asthma persistence: intermittent Asthma severity: mild Hiatal hernia K44.9 Pulmonary nodules R91.8 Time Spent (min) 37
== END 2023-10-31 10:46 | disposition home or self-care (01) ==
PROVIDERS: PCP Internal Medicine; Visit Provider Hospitalist
DX: J45.20 Mild intermittent asthma, uncomplicated (principal); K44.9 Diaphragmatic hernia without obstruction or gangrene; R91.8 Other nonspecific abnormal finding of lung field
CPT/HCPCS: 99204

== ENCOUNTER → 2023-10-31 10:15 | Outpatient (BNVA) | payer OTHER, SELFPAY | PROVIDERS: PCP Internal Medicine; Visit Provider Hospitalist | DX: J45.20 Mild intermittent asthma, uncomplicated (principal); R91.8 Other nonspecific abnormal finding of lung field; K44.9 Diaphragmatic hernia without obstruction or gangrene | CPT/HCPCS: 99202 ==

== ENCOUNTER 2023-12-06 10:31 | Outpatient (AMB) | payer OTHER, SELFPAY ==
[2023-08-29 08:07] VITALS: BP 142/70; BP 152/84; BMI 31.9
[2023-12-06 10:33] VITALS: BP 122/58; PULSE 75; O2SAT 97; BMI 30.5
--- NOTE | 2023-12-06 10:33 | A.OFFPC_ITS ---
Vital Signs 12/06/23 10:33 Height 5 ft 2 in Weight 167 lb BMI 30.5 BP 122/58 L Blood Pressure Location Lt brachial Position Sitting Pulse 75 Pulse Source Pulse Oximeter Pulse Oximetry (%) 97 Oxygen Delivery Method Room Air Intake Visit Reasons: CAD hypercholesterolemia diabetes Settlement Technician Required: No Allergies aspirin [Aspirin] Allergy (Mild, Verified 12/06/23 10:33) Abdominal Pain Penicillins Allergy (Mild, Verified 12/06/23 10:33) NAUSEA/STOMACH PAIN hydrochlorothiazide Allergy (Unknown, Verified 12/06/23 10:33) hypokalemia lisinopril Allergy (Unknown, Verified 12/06/23 10:33) ? swelling [id number]-KIS-KdB Reductase Inhibitor Allergy (Unknown, Verified 12/06/23 10:33) Muscle cramps ibuprofen [From Motrin] Adverse Reaction (Unknown, Verified 12/06/23 10:33) Abdominal Pain Tobacco use date assessed: 12/06/23 Fall risk assessment: No Falls in past year Last assessed Fall Risk: 12/06/23 Dental Screening Dental Screen Date: 12/06/23 Did you have a dental visit in the last 12 months?: No Did you have a dental problem in the last 6 months where you did not have access to dental care?: No HPI CAD hypercholesterolemia diabetes HPI Details 73-year-old obese female with coronary a rtery disease diabetes mellitus uncontrolled hypertension hypercholesterolemia and anemia last seen in August 2023. Patient had colonoscopy done in 2018 in do this year. Mammogram is due. Patient has asthma and follows up with Pulmonary presently being treated with Wixela and albuterol. CT chest ordered for December for the pulmonary nodules. Patient also follows up with Hematology-Oncology for iron deficiency anemia. Patient complains of leg cramps still discussed that was recommended eat bananas but patient has been and still having a lot of leg cramps. Muscle relaxants prescribed not really helping. [facility] Medical History (Updated 12/06/23 @ 10:56 by Junior Zayas MD) Pulmonary nodules Hiatal hernia Coronary artery disease Hypercholesterolemia Orthopnea Gastroparesis Headache Lower extremity edema Urinary frequency Right shoulder pain Constipation Abdominal bloating Shoulder pain, right Hip pain, left Nasal congestion Chest pain NSTEMI (non-ST elevated myocardial infarction) Fall HLD (hyperlipidemia) Colon cancer screening Pleural effusion, right Nocturia more than twice per night Glaucoma Cataract of left eye Renal cyst Preop exam for internal medicine On beta kamryn at home Vitamin D deficiency Osteoporosis Restless leg syndrome Type 2 diabetes mellitus with diabetic polyneuropathy Tubal ligation evaluation Adrenal adenoma Pulmonary nodule Fracture of toe of left foot Positive MAGGIE (antinuclear antibody) Osteoarthritis of both knees Osteopenia Ulnar neuropathy Asthma GERD (gastroesophageal reflux disease) Obesity (BMI 30-39.9) Surgical History Hx of right cataract extraction History of esophagogastroduodenoscopy (EGD) Hx of colonoscopy History of breast biopsy History of tubal ligation History of laparoscopic cholecystectomy Family History Mother HTN (hypertension) Diabetes Brother Lung cancer Sister Cancer, colon Daughter Uterine cancer Father Prostate cancer Social History Household Members: Spouse Household Members Other:: Granddaughter is ASSET PROTECTION DETECTIVE lives upstairs Housing: Other Housing Other:: m2 family house Are you a primary urgent care nurse practitioner to a significant other at home: No Do you presently have visiting nurse or other home services: Yes (ASSET PROTECTION DETECTIVE every day) Alcohol intake: never Patient Tobacco Use Status: Former Tobacco user Quit Date: quit years ago Tobacco use type: Cigarette e-Cigarette/Vaping Use: Never Used Second Hand Smoke Exposure: No service: No Current occupational status: retired and disabled Cognitive needs: No Hearing needs: No Vision needs: Yes (glasses) Questionnaire PHQ-9 Over the last 2 weeks, how often have you been bothered by any of the following problems? 1. Little interest or pleasure in doing things: not at all 2. Feeling down, depressed, or hopeless: not at all 3. Trouble falling or staying asleep, or sleeping too much: not at all 4. Feeling tired or having little energy: not at all 5. Poor appetite or overeating: not at all 6. Feeling bad about yourself - or that you are a failure or have let yourself or your family down: not at all 7. Trouble concentrating on things, such as reading the newspaper or watching television: not at all 8. Moving or speaking so slowly that other people could have noticed. Or the opposite - being so fidgety or restless that you have been moving around a lot more than usual: not at all 9. Thoughts that you would be better off or of hurting yourself in some way: not at all Total score: 0 Depression Screening Interpretation: Negative Depression Screening Done: Yes 73812 - PHQ-9 Billing: Yes Source: Developed by Drs. Jhon Cedeño, Cara Park, Isaias Michael and colleagues, with an educational joey from [employer]. Thrive Questionnaire Date Thrive assessed: 12/06/23 I am a: Patient What is your living situation today?: I have a steady place to live Within the past 12 months, did the food you bought not last and you didn't have the money to get more?: Never true Within the past 12 months, did you worry whether your food would run out before you got money to buy more?: Never true Do you have trouble paying for medicines?: No Do you have trouble getting transportation to medical appointments?: No Do you have trouble paying your heating and electricity bill?: No Do you have trouble taking care of your child, family member or friend?: No Do you have trouble with day-to-day activities such as bathing, preparing meals, shopping, managing finances, etc.?: No Are you currently unemployed and looking for a job?: No Are you interested in more education?: No Please select the resources that you would like help with: None Currently or been in a relationship where the following occur: no concerns reported THRIVE Score: 0 AUDIT C Alcohol Use Questionnaire (AUDIT-C) 1. How often do you have a drink containing alcohol?: Never 3. How often do you have six or more drinks on one occasion?: Never Total Score: 0 QUYNH-7 AMB Questionnaire QUYNH-7 Date QUYNH - 7 assessed: 12/06/23 Source: Developed by Drs. Jhon Cedeoñ, Cara Park, Isaias Michael and colleagues, with an educational joey from [employer]. Physical exam (Primary Care) Vital Signs: Last Vital Signs Pulse 75 12/06/23 10:33 BP 122/58 L 12/06/23 10:33 Pulse Ox 97 12/06/23 10:33 Oxygen Delivery Method Room Air 12/06/23 10:33 BMI result Body Mass Index 30.5 Tobacco/Smoking Status: Tobacco use Status Tobacco use date assessed 12/06/23 12/06/23 10:34 Patient Tobacco Use Status Former Tobacco user 12/06/23 10:34 Tobacco use type Cigarette 12/06/23 10:34 e-Cigarette/Vaping Use Never Used 12/06/23 10:34 PHQ-9: PHQ-9 Score PHQ-9: Total score 0 12/06/23 10:34 Depression Screening Interpretation: Negative Thrive Assessment: Date of Thrive Assessment Date Thrive assessed 12/06/23 12/06/23 10:34 Currently or been in a relationship where the following occur: no concerns reported Const General: alert; No acute distress Eyes Conjunctivae: conjunctivae normal Resp Auscultation: clear to auscultation bilaterally Cardio Rate: regular rate Rhythm: regular rhythm GI Inspection: Yes normal to inspection Extrem General: Yes normal to inspection and No edema Results AMB Hemoglobin A1c AMB Hemoglobin A1c 7.7 % Last Edit by NGUYEN Howe on 12/06/23 10:46 Results Reviewed Results Reviewed: Laboratory Last Values Hgb A1c (Clinic) 7.7 % (4.0-6.0) H 12/06/23 10:05 Assessment and Plan Assessment & Plan (1) Obesity (BMI 30-39.9): Code(s): E66.9 - Obesity, unspecified Plan: Diet and size (2) Asthma: Code(s): J45.909 - Unspecified asthma, uncomplicated Qualifiers: Asthma severity: mild Asthma persistence: intermittent Asthma complication type: uncomplicated Qualified Code(s): J45.20 - Mild intermittent asthma, uncomplicated Plan: Continue with inhaler Wixela and short-acting albuterol (3) Type 2 diabetes mellitus with hyperglycemia: Comment: Angel Guerra Code(s): E11.65 - Type 2 diabetes mellitus with hyperglycemia Qualifiers: Diabetes mellitus termite treater insulin use: unspecified snf insulin use status Qualified Code(s): E11.65 - Type 2 diabetes mellitus with hyperglycemia Plan: Decrease the amount of carbohydrate intake, pasta, bread, rice and potatoes are all sugar and that is aside from all the sweet stuff, remember that fruits are good but they are Sweet also. Hemoglobin A1c goal of less than 7.0 patient is on Basaglar metformin 500 mg twice a day [place] (4) Hypertension: Code(s): I10 - Essential (primary) hypertension Plan: Continue with blood pressure medication. Decrease salt intake and exercise patient takes amlodipine 5 mg once a day losartan 50 mg once a day (5) Coronary artery disease: Comment: echo normal LV 60-65% June 2019, May 2023 distal LAD drug-eluting stent Code(s): I25.10 - Atherosclerotic heart disease of [place] coronary artery without angina pectoris Qualifiers: Coronary Disease-Associated Artery/Lesion type: [place] artery [place] vs. transplanted heart: [place] heart Associated angina: without angina Qualified Code(s): I25.10 - Atherosclerotic heart disease of [place] coronary artery without angina pectoris Plan: Control the cholesterol, weight, blood pressure, diabetes continue with clopidogrel and aspirin (6) Hypercholesterolemia: Comment: Patient cannot tolerate statins Code(s): E78.00 - Pure hypercholesterolemia, unspecified Plan: Avoid fried foods, chicken skin, eggs, butter margarine, pastries and meat. Be it pork or beef they have a lot of cholesterol on atorvastatin 40 mg once a day and Zetia 10 mg once a day (7) Pulmonary nodules: Code(s): R91.8 - Other nonspecific abnormal finding of lung field Plan: CT scan advised in December 2023 (8) Anemia: Code(s): D64.9 - Anemia, unspecified Qualifiers: Anemia type: unspecified type Qualified Code(s): D64.9 - Anemia, unspecified Plan: Patient follows up with Hematology-Oncology and gets iron infusion (9) Breast cancer screening by mammogram: Code(s): Z12.31 - Encounter for screening mammogram for malignant neoplasm of breast Plan: Mammogram requested Orders: Orders Complete Blood Count Auto Diff Today E11.65 - Type 2 diabetes mellitus with hyperglycemia Ferritin Today E11.65 - Type 2 diabetes mellitus with hyperglycemia IRON PROFILE Today E11.65 - Type 2 diabetes mellitus with hyperglycemia Thyroid Stimulating Hormone Today E11.65 - Type 2 diabetes mellitus with hyperglycemia Free T4 (Free Thyroxine) Today E11.65 - Type 2 diabetes mellitus with hyperglycemia Creatinine Urine Today E11.65 - Type 2 diabetes mellitus with hyperglycemia Microalbumin, Random (w Creat) Today E11.65 - Type 2 diabetes mellitus with hyperglycemia Vitamin B12 and Folate Today E11.65 - Type 2 diabetes mellitus with hyperglycemia Magnesium Today E11.65 - Type 2 diabetes mellitus with hyperglycemia UA CC w/rflx Micro + Cult Today E11.65 - Type 2 diabetes mellitus with hyperglycemia, R30.0 - Dysuria AMB Hemoglobin A1c Today E11.65 - Type 2 diabetes mellitus with hyperglycemia Reticulocyte Count Today E11.65 - Type 2 diabetes mellitus with hyperglycemia Hemoglobin A1c Today E11.65 - Type 2 diabetes mellitus with hyperglycemia Vitamin D 25-OH Total Today E11.65 - Type 2 diabetes mellitus with hyperglycemia Coding Level of Care Code Est Pt Level 4 (23929) Diagnoses Obesity (BMI 30-39.9) E66.9 Mild intermittent asthma without complication J45.20 Asthma severity: mild Asthma persistence: intermittent Asthma complication type: uncomplicated Type 2 diabetes mellitus with hyperglycemia, unspecified whether termite treater insulin use E11. Diabetes mellitus termite treater insulin use: unspecified termite treater insulin use status Hypertension I10 Coronary artery disease involving [place] coronary artery of [place] heart without angina pectoris I25.10 Coronary Disease-Associated Artery/Lesion type: [place] artery [place] vs. transplanted heart: [place] heart Associated angina: without angina Hypercholesterolemia E78.00 Pulmonary nodules R91.8 Anemia D64.9 Anemia type: unspecified type Breast cancer screening by mammogram Z12.31
== END 2023-12-06 11:12 | disposition home or self-care (01) ==
PROVIDERS: PCP Internal Medicine; Visit Provider Internal Medicine
DX: E11.65 Type 2 diabetes mellitus with hyperglycemia (principal); E66.9 Obesity, unspecified; Z68.30 Body mass index [BMI] 30.0-30.9, adult; J45.20 Mild intermittent asthma, uncomplicated; I10 Essential (primary) hypertension; I25.10 Atherosclerotic heart disease of native coronary artery without angina pectoris; E78.00 Pure hypercholesterolemia, unspecified; R91.8 Other nonspecific abnormal finding of lung field; D64.9 Anemia, unspecified; Z12.31 Encounter for screening mammogram for malignant neoplasm of breast
CPT/HCPCS: 83036; 99214

== ENCOUNTER 2023-12-07 08:54 | Outpatient (REF) | payer OTHER, SELFPAY ==
[2023-12-07 09:21] LABS: MANUAL DIFF FLAG NO
[2023-12-07 10:50] LABS: Basophils Absolute Auto 0.1 X10*3/uL (0.0-0.2); Eosinophils Absolute Auto 0.2 X10*3/uL (0.0-0.4); Eosinophils Percent Auto 3.3 % (0-4); Hematocrit 34.7 % (37.0-47.0); Hemoglobin 11.6 g/dl (12.0-16.0); Imm Gran Abs Auto 0.02 X10*3/uL (0.00-0.03); Imm Gran Pct Auto 0.3 % (0.0-0.4); Immature Retic Fraction 17.5 % (3.0-15.9); Lymphocytes Absolute Auto 1.6 X10*3/uL (1.2-4.9); Lymphocytes Percent Auto 22.5 % (20-40); Mean Corpuscular HGB Conc 33.4 g/dl (31.0-35.0); Mean Corpuscular Hemoglobin 30.9 pg (27.0-33.0); Mean Corpuscular Volume 92.5 fL (80.0-98.0); Mean Platelet Volume 10.7 fL (9.4-12.3); Monocytes Absolute Auto 0.6 X10*3/uL (0.1-1.2); Monocytes Percent Auto 8.7 % (2-11); Neutrophils Absolute Auto 4.7 x10*3/uL (2.0-8.3); Neutrophils Percent Auto 64.2 % (45-73); Platelet Count 214 X10*3/uL (160-400); Red Blood Count 3.75 X10*6/uL (4.20-5.50); Red Cell Distribution Width 16.5 % (11.0-16.0); Retic HGB Equivalent 35.3 pg (30.0-35.0); Reticulocyte Percent 1.7 % (0.5-1.8); Reticulocytes Absolute 0.065 X10*6/uL (0.026-0.095); White Blood Count 7.2 X10*3/uL (4.8-10.8)
[2023-12-07 11:04] LABS: Alanine Aminotransferase 24 U/L (0-31); Albumin Level 3.6 g/dL (3.5-5.0); Alkaline Phosphatase 67 U/L (39-117); Anion Gap 13 (12-20); Aspartate Amino Transferase 20 U/L (5-31); Bilirubin Total 0.4 mg/dL (0.0-1.0); Blood Urea Nitrogen 12 mg/dL (9-16); Calcium 9.1 mg/dL (8.4-10.2); Carbon Dioxide 27 mmol/L (22-29); Chloride 105 mmol/L (96-108); Cholesterol 110 mg/dL (<200); Estimated Glomerular Filt Rate > 60; Glucose Random 161 mg/dL (60-115); HDL Cholesterol 51 mg/dL (>40); Iron 43 mcg/dL (30-160); LDL Cholesterol Calculated 46 mg/dL (<100); Magnesium 1.7 mg/dL (1.6-2.6); Percent Iron Saturation 13 % (15-50); Potassium 4.1 mmol/L (3.3-5.1); Sodium 141 mmol/L (135-145); Total Iron Binding Capacity 333 mcg/dL (228-428); Total Protein 6.5 g/dL (6.5-8.0); Triglycerides 68 mg/dL (<150); Unsaturated Iron Binding 290 ug/dL
[2023-12-07 11:11] LABS: Appearance Urine Cloudy; Color Urine Yellow; Glucose Urine UA Negative (Negative); Leukocyte Esterase Urine Moderate (2+) (Negative); Nitrite Urine Positive (Negative); PH 6.5 (5.0-9.0); Specific Gravity - Urine 1.015 (1.005-1.025); UMIC TRIGGER UACC YES; Urine Blood Negative (Negative); Urine Ketones Negative (Negative); Urine Protein Negative (Neg-Trace)
[2023-12-07 11:17] LABS: Estimated Average Glucose 174 mg/dL; Hemoglobin A1c % 7.7 % (<6.0)
[2023-12-07 11:21] LABS: Bacteria Urine 4+ (None Seen); Hyaline Casts Urine 0-2 /LPF (0-2); RBC Urine 0-2 /HPF (0-2); UACC Culture Trigger YES; WBC Urine 21-50 /HPF (0-5)
[2023-12-07 11:21] LABS: Ferritin 32 ng/mL (10-250); Free T4 (Free Thyroxine) 0.93 ng/dL (0.71-1.85); Thyroid Stimulating Hormone 2.52 uIU/mL (0.32-4.0); Vitamin D 25-OH Total 36.9 ng/mL (>30)
[2023-12-07 11:33] LABS: Folate 10.8 ng/mL (> or = 4.0); Vitamin B12 357 pg/mL (200-900)
[2023-12-07 12:55] LABS: Creatinine Urine 73.93 mg/dL; Microalbum/Creatinine Ratio Ur 12.1 ug/mg cr (<30)
== END 2023-12-07 08:55 | disposition home or self-care (01) ==
LOC: HO.LAB 08:54
PROVIDERS: Absent Provider Internal Medicine; PCP Internal Medicine; Visit Provider Internal Medicine Endocrinology, Diabetes & Metabolism
DX: E11.65 Type 2 diabetes mellitus with hyperglycemia (principal); E78.00 Pure hypercholesterolemia, unspecified; R82.90 Unspecified abnormal findings in urine
CPT/HCPCS: 36415; 80053; 80061; 81001; 82043; 82306; 82570; 82607; 82728; 82746; 83036; 83540; 83735; 84439; 84443; 85025; 85045; 87086; 87088; 87186

== ENCOUNTER 2023-12-13 10:58 | Outpatient (AMB) | payer OTHER, SELFPAY ==
[2023-12-13 11:08] VITALS: BP 114/52; PULSE 59; BMI 31.2
--- NOTE | 2023-12-13 11:08 | MHC.OFFVIS ---
Intake Vital Signs 12/13/23 11:08 Height 5 ft 2 in Weight 170 lb 6.677 oz BMI 31.2 BP 114/52 L Blood Pressure Location Lt brachial Position Sitting Pulse 59 Pulse Source Pulse Oximeter Intake Visit Reasons: f/u adrenal adenoma-confirmed Intake Note: Patient present today for adrenal adenoma follow up visit. Last seen 01/01/[address] Montes. Animal Services Officer Required: No Animal Services Officer Name: Patient refused hourly sign language interpreter Accompanied by: Daughter Allergies aspirin [Aspirin] Allergy (Mild, Verified 12/13/23 11:12) Abdominal Pain Penicillins Allergy (Mild, Verified 12/13/23 11:12) NAUSEA/STOMACH PAIN hydrochlorothiazide Allergy (Unknown, Verified 12/13/23 11:12) hypokalemia lisinopril Allergy (Unknown, Verified 12/13/23 11:12) ? swelling Oabvbpt-AEO-NqU Reductase Inhibitor Allergy (Unknown, Verified 12/13/23 11:12) Muscle cramps ibuprofen [From Motrin] Adverse Reaction (Unknown, Verified 12/13/23 11:12) Abdominal Pain Medication List - Last Reconciled 12/13/23 by Jhon Ro MD [adult pull ups As directed] amlodipine 5 mg PO DAILY aspirin 81 mg PO DAILY 90 days atorvastatin 40 mg PO DAILY blood pressure monitor (Blood Pressure Kit) As directed blood sugar diagnostic (OneTouch Verio test strips) As directed twice a day, fasting am and at bedtime cholecalciferol (vitamin D3) 50 mcg PO DAILY 90 days clopidogrel (Plavix) 75 mg PO DAILY ezetimibe (Zetia) 10 mg PO DAILY ferrous sulfate 325 mg PO BID fluticasone propion-salmeterol 250-50 mcg/dose (Wixela Inhub) 1 ea PO BID furosemide 20 mg PO DAILY insulin glargine (Basaglar KwikPen U-100 Insulin) 10 units (0.1 mL) subcut QPM lancets As directed twice a day losartan 50 mg PO DAILY metformin 500 mg PO BID metoprolol tartrate 100 mg PO BID nebulizers (Altera Nebulizer System) As directed updraft Q 4 hours prn with albuterol nitrofurantoin monohyd/m-cryst 100 mg (Macrobid) 100 mg PO Q12H 7 days pantoprazole 40 mg PO BID@0630,1630 rosuvastatin 20 mg PO DAILY tirzepatide (Mounjaro) 2.5 mg (0.5 mL) subcut QWEEK 4 weeks tizanidine 4 mg PO BEDTIME PRN HPI HPI Comments History of Present Illness Details 73 YO Female with PMHx T2DM who is seen in F/U today due to T2DM, Adrenal Adenoma and also Osteoporosis. . Today's visit focus is on the adrenal adenoma 2. Adrenal Adenoma: Review of patient's images reveal presence of L sided adrenal nodule dating as far back as 2012, and even longer. She underwent biochemical evaluation which was WNL in the past, but has not completed her repeat evaluation in quite some time. She has also not gone for her imaging for over 1 year now, with multiple no-shows. Most recent CT dated 11/08/2020 L sided adrenal nodule measuring 3.2 cm. This had high washoutout as detailed below. Labs ruled out pheo, elisha's and also hyperaldosteronism. She presents today to review. Her renin was suppressed, but she remains on Metoprolol. She does report her BP has been elevated. Aldosterone was 6, with potassium >4.0. She reports feeling well today and has no complaints. CT Abdomen: 11/08/2020 FINDINGS: LUNG BASES: The lung bases are clear. Suspect small hiatal hernia. The heart size is normal. LIVER, GALLBLADDER, AND BILIARY TREE: The liver is homogeneous in density, normal size, shape and contour. No focal lesion or intrahepatic ductal dilatation seen. The gallbladder has been surgically removed. PANCREAS: The pancreas is homogeneous in density and normal size. SPLEEN: The spleen is normal size and density. ADRENAL GLANDS AND KIDNEYS: There is a hypodense left adrenal lesion measuring 3.2 x 2.8 x 2.90 cm. It measures -8.4 Hounsfield units on precontrast, 49 Hounsfield units on postcontrast exam and 11 Hounsfield units on delayed exam. The absolute washout is 66.2% and the relative washout measures 77.6%. These findings are consistent with adenoma. Both kidneys are normal size, shape and position. There is a moderate size exophytic cyst, lower pole left kidney, measuring 3.0 x 2.8 x 3.0 cm and 9 Hounsfield units. No radiopaque renal calculi or hydroureteronephrosis seen. Opacified bilateral kidney pelvises and the ureters are of normal caliber. BOWEL LOOPS: There is scattered stool seen in the colon without any significant distention. The small bowel loops are normal caliber. There is no free air or free fluid. No inflammatory process seen in the abdomen. LYMPH NODES: Normal. VASCULAR: Unremarkable. BONES: There are degenerative disc changes with ventral spondylosis L1-L2 disc level. No lytic or sclerotic process seen. Labs: Laboratory Tests 12/22/20 12/22/20 12/22/20 09:40 09:40 09:40 Sodium Potassium 4.3 Creatinine Estimated GFR Renin 0.11 L Aldosterone 5 DHEA Sulfate ACTH 02/09/22 02/09/22 02/09/22 07:29 07:29 07:29 Sodium 138 Potassium 3.9 Creatinine 0.72 Estimated GFR > 60 Renin Aldosterone DHEA Sulfate 15 ACTH 10 10/26/20 10/26/20 10/26/20 08:45 08:45 08:57 Potassium Creatinine Estimated GFR N-Telopeptide X-li nked 51 Renin Aldosterone 6 25-OH Vitamin D To valdez DHEA Sulfate 13 PTH Intact 54 Calcium (PTH Intac t) 9.3 Cortisol ACTH Plas Tot Cate[place]ola mine 665 Dopamine <20 Epinephrine <40 Norepinephrine 665 Plasma Free Metane ph <25 Plasma Free Normet a 101 Plas Total Metanep h 101 Ur 24 Hour Volume Ur Creatinine 24 H our Ur Free Cortisol 2 4 Hr U Norepinephrine 2 4 Hr U Free Metanephrin e U Normetanephrine 24h U Tot Metanephrine 24h Ur Dopamine 24 Hr U Tot Catecholamin e 24h Dexamethasone 364 10/26/20 10/26/20 10/26/20 08:57 08:57 08:57 Potassium Creatinine Estimated GFR N-Telopeptide X-li nked Renin 0.10 L Aldosterone 25-OH Vitamin D To valdez DHEA Sulfate PTH Intact Calcium (PTH Intac t) Cortisol 1.2 L ACTH <5 L Plas Tot [place] mine Dopamine Epinephrine Norepinephrine Plasma Free Metane ph Plasma Free Normet a Plas Total Metanep h Ur 24 Hour Volume Ur Creatinine 24 H our Ur Free Cortisol 2 4 Hr U Norepinephrine 2 4 Hr U Free Metanephrin e U Normetanephrine 24h U Tot Metanephrine 24h Ur Dopamine 24 Hr U Tot Catecholamin e 24h Dexamethasone 10/28/20 10/28/20 10/28/20 08:00 08:00 08:00 Potassium Creatinine Estimated GFR N-Telopeptide X-li nked Renin Aldosterone 25-OH Vitamin D To valdez DHEA Sulfate PTH Intact Calcium (PTH Intac t) Cortisol ACTH Plas Tot [place] mine Dopamine Epinephrine Norepinephrine Plasma Free Metane ph Plasma Free Normet a Plas Total Metanep h Ur 24 Hour Volume 700 Ur Creatinine 24 H our 1.05 Ur Free Cortisol 2 4 Hr 13.5 U Norepinephrine 2 4 Hr 65 U Free Metanephrin e 93 U Normetanephrine 24h 418 U Tot Metanephrine 24h 511 Ur Dopamine 24 Hr 312 U Tot Catecholamin e 24h 65 Dexamethasone 10/28/20 08:40 Potassium 4.0 Creatinine 0.70 Estimated GFR > 60 N-Telopeptide X-li nked Renin Aldosterone 25-OH Vitamin D To valdez 33.9 DHEA Sulfate PTH Intact Calcium (PTH Intac t) Cortisol ACTH Plas Tot [place] mine Dopamine Epinephrine Norepinephrine Plasma Free Metane ph Plasma Free Normet a Plas Total Metanep h Ur 24 Hour Volume Ur Creatinine 24 H our Ur Free Cortisol 2 4 Hr U Norepinephrine 2 4 Hr U Free Metanephrin e U Normetanephrine 24h U Tot Metanephrine 24h Ur Dopamine 24 Hr U Tot Catecholamin e 24h Dexamethasone no symptoms of Elisha's or pheochromocytoma PFSH Medical History (Updated 12/06/23 @ 10:56 by Junior Zayas MD) Pulmonary nodules Hiatal hernia Coronary artery disease Hypercholesterolemia Orthopnea Gastroparesis Headache Lower extremity edema Urinary frequency Right shoulder pain Constipation Abdominal bloating Shoulder pain, right Hip pain, left Nasal congestion Chest pain NSTEMI (non-ST elevated myocardial infarction) Fall HLD (hyperlipidemia) Colon cancer screening Pleural effusion, right Nocturia more than twice per night Glaucoma Cataract of left eye Renal cyst Preop exam for internal medicine On beta kamryn at home Vitamin D deficiency Osteoporosis Restless leg syndrome Type 2 diabetes mellitus with diabetic polyneuropathy Tubal ligation evaluation Adrenal adenoma Pulmonary nodule Fracture of toe of left foot Positive MAGGIE (antinuclear antibody) Osteoarthritis of both knees Osteopenia Ulnar neuropathy Asthma GERD (gastroesophageal reflux disease) Obesity (BMI 30-39.9) Surgical History Hx of right cataract extraction History of esophagogastroduodenoscopy (EGD) Hx of colonoscopy History of breast biopsy History of tubal ligation History of laparoscopic cholecystectomy Family History Mother HTN (hypertension) Diabetes Brother Lung cancer Sister Cancer, colon Daughter Uterine cancer Father Prostate cancer Social History Household Members: Spouse Household Members Other:: Granddaughter is NETWORK STRATEGIST lives upstairs Housing: Other Housing Other:: m2 family house Are you a primary pet care technician to a significant other at home: No Do you presently have visiting nurse or other home services: Yes (NETWORK STRATEGIST every day) Alcohol intake: never Patient Tobacco Use Status: Former Tobacco user Quit Date: quit years ago Tobacco use type: Cigarette e-Cigarette/Vaping Use: Never Used Second Hand Smoke Exposure: No service: No Current occupational status: retired and disabled Cognitive needs: No Hearing needs: No Vision needs: Yes (glasses) Physical Exam Const Other: No cushingoid appearance Assessment & Plan Assessment & Plan (1) Adrenal adenoma: Code(s): D35.00 - Benign neoplasm of unspecified adrenal gland Qualifiers: Laterality: unspecified laterality Qualified Code(s): D35.00 - Benign neoplasm of unspecified adrenal gland Plan: CT scan characteristics showed benign adenoma. No need for further imaging. Further workup in past showed that mass was non secretory. Recent follow-up workup for secretion was negative including workup for Elisha's and pheochromocytoma. Will continue to follow on a yearly basis and will reassess for MACS during next she has follow-up I will have her follow up with the CDE to discuss getting a sensor and can follow up with me for the diabetes in about 5-6 months Coding Level of Care Code Est Pt Level 3 (19165) Diagnoses Adrenal adenoma, unspecified laterality D35.00 Laterality: unspecified laterality
== END 2023-12-13 11:42 | disposition home or self-care (01) ==
PROVIDERS: PCP Internal Medicine; Visit Provider Internal Medicine Endocrinology, Diabetes & Metabolism
DX: D35.00 Benign neoplasm of unspecified adrenal gland (principal)
CPT/HCPCS: 99213

== ENCOUNTER → 2023-12-13 10:58 | Outpatient (BNVA) | payer OTHER, SELFPAY | PROVIDERS: PCP Internal Medicine; Visit Provider Internal Medicine Endocrinology, Diabetes & Metabolism | DX: D35.02 Benign neoplasm of left adrenal gland (principal) | CPT/HCPCS: 99212 ==

== ENCOUNTER 2023-12-17 12:51 | Outpatient (AMB) | payer OTHER, SELFPAY ==
[2023-08-29 08:07] VITALS: BP 142/70; BP 152/84; BMI 31.9
[2023-12-17 12:58] VITALS: BP 114/52; PULSE 84; BMI 31.5
--- NOTE | 2023-12-17 12:58 | MHC.OFFVIS ---
Intake Vital Signs 12/17/23 12:58 Height 5 ft 2 in Weight 172 lb 6.424 oz BMI 31.5 BP 114/52 L Blood Pressure Location Lt brachial Position Sitting Pulse 84 Pulse Source Monitor Intake Visit Reasons: 3 mth f/up/ and preop colonoscopy Ksenia Heat Engineering Teacher Required: No Debone Supervisor: Debone Supervisor Present Allergies aspirin [Aspirin] Allergy (Mild, Verified 12/17/23 13:01) Abdominal Pain Penicillins Allergy (Mild, Verified 12/17/23 13:01) NAUSEA/STOMACH PAIN hydrochlorothiazide Allergy (Unknown, Verified 12/17/23 13:01) hypokalemia lisinopril Allergy (Unknown, Verified 12/17/23 13:01) ? swelling Vjvtmfs-AUQ-ZnU Reductase Inhibitor Allergy (Unknown, Verified 12/17/23 13:01) Muscle cramps ibuprofen [From Motrin] Adverse Reaction (Unknown, Verified 12/17/23 13:01) Abdominal Pain Medication List - Last Reconciled 12/17/23 by Nicole Son NP-C [adult pull ups As directed] amlodipine 5 mg PO DAILY aspirin 81 mg PO DAILY 90 days blood pressure monitor (Blood Pressure Kit) As directed blood sugar diagnostic (OneTouch Verio test strips) As directed twice a day, fasting am and at bedtime cholecalciferol (vitamin D3) 50 mcg PO DAILY 90 days clopidogrel (Plavix) 75 mg PO DAILY ezetimibe (Zetia) 10 mg PO DAILY ferrous sulfate 325 mg PO BID fluticasone propion-salmeterol 250-50 mcg/dose (Wixela Inhub) 1 ea PO BID furosemide 20 mg PO DAILY insulin glargine (Basaglar KwikPen U-100 Insulin) 10 units (0.1 mL) subcut QPM lancets As directed twice a day losartan 50 mg PO DAILY metformin 500 mg PO BID metoprolol tartrate 100 mg PO BID nebulizers (Cutting Edge Wheelsa Nebulizer System) As directed updraft Q 4 hours prn with albuterol nitrofurantoin monohyd/m-cryst 100 mg (Macrobid) 100 mg PO Q12H 7 days pantoprazole 40 mg PO BID@0630,1630 rosuvastatin 20 mg PO DAILY tirzepatide (Mounjaro) 2.5 mg (0.5 mL) subcut QWEEK 4 weeks tizanidine 4 mg PO BEDTIME PRN HPI 3 mth f/up/ and preop colonoscopy Ksenia HPI Details Roz is a 73-year-old female with past medical history of hypertension, hyperlipidemia, diabetes, obesity, asthma, CAD who presents for follow-up and preop cardiovascular examination for upcoming colonoscopy. Today she reports that she has notice some shortness of breath and chest tightness at times when she lays down. She does not notice these symptoms with activities. She does have asthma and will use her inhaler with some improvement. No chest discomfort brought on by walking or stairs. No palpitations, lightheadedness, presyncope, syncope, falls. Takes all meds as directed. Daughter present. She is assisting with Polish translation at their request. Permit signed.. [facility] Medical History Pulmonary nodules Hiatal hernia Coronary artery disease Hypercholesterolemia Orthopnea Gastroparesis Headache Lower extremity edema Urinary frequency Right shoulder pain Constipation Abdominal bloating Shoulder pain, right Hip pain, left Nasal congestion Chest pain NSTEMI (non-ST elevated myocardial infarction) Fall HLD (hyperlipidemia) Colon cancer screening Pleural effusion, right Nocturia more than twice per night Glaucoma Cataract of left eye Renal cyst Preop exam for internal medicine On beta kamryn at home Vitamin D deficiency Osteoporosis Restless leg syndrome Type 2 diabetes mellitus with diabetic polyneuropathy Tubal ligation evaluation Adrenal adenoma Pulmonary nodule Fracture of toe of left foot Positive MAGGIE (antinuclear antibody) Osteoarthritis of both knees Osteopenia Ulnar neuropathy Asthma GERD (gastroesophageal reflux disease) Obesity (BMI 30-39.9) Surgical History Hx of right cataract extraction History of esophagogastroduodenoscopy (EGD) Hx of colonoscopy History of breast biopsy History of tubal ligation History of laparoscopic cholecystectomy Family History Mother HTN (hypertension) Diabetes Brother Lung cancer Sister Cancer, colon Daughter Uterine cancer Father Prostate cancer Social History Household Members: Spouse Household Members Other:: Granddaughter is MELON PACKER lives upstairs Housing: Other Housing Other:: m2 family house Are you a primary continuum of care manager to a significant other at home: No Do you presently have visiting nurse or other home services: Yes (MELON PACKER every day) Alcohol intake: never Patient Tobacco Use Status: Former Tobacco user Quit Date: quit years ago Tobacco use type: Cigarette e-Cigarette/Vaping Use: Never Used Second Hand Smoke Exposure: No service: No Current occupational status: retired and disabled Cognitive needs: No Hearing needs: No Vision needs: Yes (glasses) Review of Systems Const All systems reviewed & are unremarkable except as noted in HPI and below ENT Denies dizziness Card Details: chest tight with her sob Denies chest pain, Denies chest pain at rest, Denies chest pain with activity, Denies rapid heart rate, Denies pedal edema, Denies edema, Denies leg edema, Denies lightheadedness, Denies palpitations, Reports dyspnea, Denies dyspnea on exertion and Denies orthopnea Resp Denies cough, Reports dyspnea and Denies dyspnea on exertion GI Denies hematochezia and Denies change in stool character Musc Denies abnormal gait, Denies limited range of motion, Denies muscle cramps, Denies muscle weakness, Denies numbness, Denies radiating pain into limb, Denies stiffness and Denies tingling Neuro Denies abnormal gait, Denies dizziness, Denies numbness and Denies tingling Endo Denies palpitations Physical Exam Vital Signs: Last Vital Signs Pulse 84 12/17/23 12:58 BP 114/52 L 12/17/23 12:58 BMI result Body Mass Index 31.5 Const General: cooperative, healthy appearing, comfortable and no acute distress Orientation/consciousness: patient oriented x3 Neck Neck: Yes normal visual inspection Resp Effort & Inspection: normal respiratory effort Auscultation: clear to auscultation bilaterally, no crackles, no rales, no rhonchi and no wheezes Cardio Jugular venous distension: no JVD Rate: regular rate Rhythm: regular rhythm Heart sounds: S1 normal heart sound present, S2 normal heart sound present, no murmurs and no rubs Neuro General: patient oriented x3 Extrem General: Yes normal to inspection, No no pedal edema and No calf tenderness Psych Appearance: grossly normal Mental Status: mental status grossly normal Speech and movement: Normal speech and movement present Office Procedures EKG Details: Today, read by me, normal sinus rhythm, nonspecific ST and T-wave abnormality, rate 84, QTC 460 milliseconds [id number], Complete Assessment & Plan Assessment & Plan (1) Coronary artery disease: Comment: echo normal LV 60-65% June 2019, May 2023 distal LAD drug-eluting stent Code(s): I25.10 - Atherosclerotic heart disease of [place] coronary artery without angina pectoris Qualifiers: Associated angina: without angina Coronary Disease-Associated Artery/Lesion type: [place] artery [place] vs. transplanted heart: [place] heart Qualified Code(s): I25.10 - Atherosclerotic heart disease of [place] coronary artery without angina pectoris Plan: History of NSTEMI 05/2023 when she presented with chest discomfort. She ruled in for ACS. Echocardiogram showed EF 65-70%, apical lateral and mid inferior lateral hypokinetic. Troponin peak 797.4. She was transferred to [facility] and underwent cardiac catheterization showing significant LAD, OM1, ramus stenosis, YVETTE placed to the mid LAD. She did do cardiac rehab for short while and then stopped going. She had some bleeding issues with Brilinta and was changed over to Plavix. She is currently doing well with no chest discomfort with exertion. She does describe some shortness of breath and chest tightness which occurs mostly at rest. She feels this may be her asthma and has used her inhaler with some improvement. Signs and symptoms of angina reviewed with her in detail. She has had no symptoms like what brought her to the hospital last May. Will continue current med management. Continue aspirin indefinitely. Continue Plavix uninterrupted for at least 1 year. Continue rosuvastatin and Zetia with ideal LDL goal less than 70. Continue metoprolol, amlodipine. Cardiology follow-up in May 2024 which will be 1 year post stent, months, sooner if needed (2) S/P cardiac catheterization: Comment: 05/11/2023 left main normal, mid LAD 90% stenosis, distal LAD 90% stenosis, 1st OM 99% stenosis, small vessel, RCA mild luminal irregularities, ramus severe disease distal segment, small vessel, YVETTE to the mid LAD Code(s): Z98.890 - Other specified postprocedural states Plan: As above (3) NSTEMI (non-ST elevated myocardial infarction): Comment: May 2023 distal LAD drug-eluting stent Code(s): I21.4 - Non-ST elevation (NSTEMI) myocardial infarction Plan: As above (4) Hypertension: Code(s): I10 - Essential (primary) hypertension Plan: Well controlled at this time. No med changes made. (5) Hypercholesterolemia: Comment: Patient cannot tolerate statins Code(s): E78.00 - Pure hypercholesterolemia, unspecified Plan: [place] LDL goal less than 70. Labs done 12/07/2023 shows LDL 46. Continue Zetia and rosuvastatin. (6) Preop cardiovascular exam: Code(s): Z01.810 - Encounter for preprocedural cardiovascular examination Plan: Preop for colonoscopy. Patient states this is a routine procedure and that she is not having any active GI issues. Patient had NSTEMI with coronary stent placement 05/11/2023. She needs to remain on aspirin and Plavix uninterrupted for at least 1 year. She will need to postpone colonoscopy until May 2024 or later at which time Plavix can be stopped and aspirin held temporarily. Plan Time spent on chart review, documentation, interview and assessment Coding Level of Care Code Est Pt Level 4 (32534) Diagnoses Coronary artery disease involving [place] coronary artery of [place] heart without angina pectoris I25.10 Associated angina: without angina Coronary Disease-Associated Artery/Lesion type: [place] artery [place] vs. transplanted heart: [place] heart S/P cardiac catheterization Z98.890 NSTEMI (non-ST elevated myocardial infarction) I21.4 Hypertension I10 Hypercholesterolemia E78.00 Preop cardiovascular exam Z01.810 CPT Codes EKG - CPT: [id number], Complete ([id number]) Time Spent (min) 30
== END 2023-12-17 13:41 | disposition home or self-care (01) ==
PROVIDERS: PCP Internal Medicine; Visit Provider Nurse Practitioner Family
DX: I25.10 Atherosclerotic heart disease of native coronary artery without angina pectoris (principal); Z98.890 Other specified postprocedural states; I21.4 Non-ST elevation (NSTEMI) myocardial infarction; I10 Essential (primary) hypertension; E78.00 Pure hypercholesterolemia, unspecified; Z01.810 Encounter for preprocedural cardiovascular examination
CPT/HCPCS: 93010; 99214

== ENCOUNTER → 2023-12-17 12:51 | Outpatient (BNVA) | payer OTHER, SELFPAY | PROVIDERS: PCP Internal Medicine; Visit Provider Nurse Practitioner Family | DX: Z01.810 Encounter for preprocedural cardiovascular examination (principal); I25.10 Atherosclerotic heart disease of native coronary artery without angina pectoris; I10 Essential (primary) hypertension; I25.2 Old myocardial infarction; E78.00 Pure hypercholesterolemia, unspecified | CPT/HCPCS: 93005; 99212 ==

== ENCOUNTER 2023-12-31 09:23 | Outpatient (REF) | payer OTHER, SELFPAY ==
--- NOTE | ~2023-12-31 | CT_ITS ---
EXAMINATION: CT CHEST WITHOUT CONTRAST CLINICAL INFORMATION: Lung nodules. COMPARISON: Chest radiograph 07/13/2023, CT abdomen and pelvis 01/31/2023, CTA chest 03/05/2015. TECHNIQUE: Multidetector volumetric CT imaging of the chest was done. Axial MIP volume rendering provided. Sagittal and coronal reformatted images were obtained. This CT examination was performed using dose optimization techniques as appropriate, variously including the following: *Automated exposure control *Adjustment of mA and/or kV according to patient size (this includes techniques or standardized protocols for targeted exams where dose is matched to indication/reason for exam; i.e. extremities or head) *Use of iterative reconstruction technique DLP: 138 mGy-cm FINDINGS: LUNGS: Mild emphysematous changes are seen. Scattered pulmonary nodular densities are seen the largest measuring 5 mm in size likely fissural and perifissural lymph nodes in the right middle lobe (5:233 and 209). A number of small calcified granulomas are present. Findings are essentially unchanged when compared to the 2017 study. No increasing or suspicious lung mass is seen. No bronchiectasis. No infiltrates. MEDIASTINUM: The mediastinum is normal. CORONARY ARTERY CALCIFICATION: Moderate. PLEURA: There is no pleural effusion. No pleural mass or thickening. AXILLA: No lymphadenopathy. UPPER ABDOMEN: A small hiatal hernia is present. There is a water density 2.9 x 2.7 x 3.0 cm left adrenal mass consistent with a benign adenoma which needs no additional imaging or followup. Similar finding was seen on prior CT abdomen and pelvis. OSSEOUS STRUCTURES: Degenerative changes are seen in the spine. CT/CT chest wo IV con IMPRESSION: 1. Mild emphysematous changes. 2. Scattered pulmonary nodular densities the largest measuring 5 mm in size. These are without significant change when compared to the 2017 study. 3. Incidental note made of a benign left adrenal adenoma which needs no additional imaging or followup. Fleischner guidelines were followed.
== END 2023-12-31 09:24 | disposition home or self-care (01) ==
LOC: HO.CT 09:23
PROVIDERS: PCP Internal Medicine; Visit Provider Hospitalist
DX: R91.8 Other nonspecific abnormal finding of lung field (principal)
CPT/HCPCS: 71250

== ENCOUNTER 2024-01-24 12:38 | Outpatient (AMB) | payer OTHER, SELFPAY ==
--- NOTE | 2024-01-24 12:54 | MHC.OFFVIS ---
Vital Signs 01/24/24 12:55 Height 5 ft 2 in Weight 167 lb 1.766 oz BMI 30.6 BP 140/66 H Blood Pressure Location Lt brachial Position Sitting Pulse 82 Pulse Source Pulse Oximeter Intake Visit Reasons: Type 2 DM Intake Note: Patient presents today to follow up on D2MT. Last Diabetic Eye exam: 12/2023 Last Podiatry Visit:Doesnt have one Random Glucose: 129 mg/dl HgA1c: 7.7% 12/07/23 Director Of Religious Life Required: Yes Director Of Religious Life Language: Kazakh Information Interpreted: non-clinical & clinical Accompanied by: Daughter Allergies aspirin [Aspirin] Allergy (Mild, Verified 01/24/24 13:01) Abdominal Pain Penicillins Allergy (Mild, Verified 01/24/24 13:01) NAUSEA/STOMACH PAIN hydrochlorothiazide Allergy (Unknown, Verified 01/24/24 13:01) hypokalemia lisinopril Allergy (Unknown, Verified 01/24/24 13:01) ? swelling Vbqvibm-FOG-KzG Reductase Inhibitor Allergy (Unknown, Verified 01/24/24 13:01) Muscle cramps ibuprofen [From Motrin] Adverse Reaction (Unknown, Verified 01/24/24 13:01) Abdominal Pain HPI Comments Details: 73 YO Female with PMHx T2DM who is seen in F/U today due to T2DM, Adrenal Adenoma and also Osteoporosis. Today's visit focus is on the diabetes 1) T2DM:Initially diagnosed with T2DM in 2009. Was initially started on treatment with Metformin. She has been using Insulin since approximately 2014. Current regimen Metformin 500 mg PO BID, Mounjaro 2.5 mg Qwkly and Lantus 18 units qHS. Dexcom download shows she is using the sensor 70% of the time. Average glucose is 221 with G mi of 8.6%. Coefficient of variation is 31.9%. 34% range with 66% hyperglycemia and no hypoglycemia. Panel shows post-breakfast and post-lunch hyperglycemia Reports no symptoms with hypoglycemia.No hypoglycemia Family history of T2DM in her Mother and siblings. Has eyes checked yearly, last eye exam 12/2023 , has appt next wk denies retinopathy. Has neuropathy, last foot exam 01/01/2023, sees podiatry. Unsure if nephropathy, not on HARSHAL/ARB due to swelling. Has HLD, not on statin. Remains on Zetia 10 mg PO daily. Denies CAD. Diet: Does not follow a lob carbohydrate diet. Weight: Stable. Has not had diabetes education. 12/22/20 12/22/20 12/22/20 09:40 09:40 09:40 Sodium Potassium 4.3 Creatinine Estimated GFR Renin 0.11 L Aldosterone 5 DHEA Sulfate ACTH 02/09/22 02/09/22 02/09/22 07:29 07:29 07:29 Sodium 138 Potassium 3.9 Creatinine 0.72 Estimated GFR > 60 Renin Aldosterone DHEA Sulfate 15 ACTH 10 10/26/20 10/26/20 10/26/20 08:45 08:45 08:57 Potassium Creatinine Estimated GFR N-Telopeptide X-linked 51 Renin Aldosterone 6 25-OH Vitamin D Total DHEA Sulfate 13 PTH Intact 54 Calcium (PTH Intact) 9.3 Cortisol ACTH Plas Tot Catecholamine 665 Dopamine <20 Epinephrine <40 Norepinephrine 665 Plasma Free Metaneph <25 Plasma Free Normeta 101 Plas Total Metaneph 101 Ur 24 Hour Volume Ur Creatinine 24 Hour Ur Free Cortisol 24 Hr U Norepinephrine 24 Hr U Free Metanephrine U Normetanephrine 24h U Tot Metanephrine 24h Ur Dopamine 24 Hr U Tot Catecholamine 24h Dexamethasone 364 10/26/20 10/26/20 10/26/20 08:57 08:57 08:57 Potassium Creatinine Estimated GFR N-Telopeptide X-linked Renin 0.10 L Aldosterone 25-OH Vitamin D Total DHEA Sulfate PTH Intact Calcium (PTH Intact) Cortisol 1.2 L ACTH <5 L Plas Tot Catecholamine Dopamine Epinephrine Norepinephrine Plasma Free Metaneph Plasma Free Normeta Plas Total Metaneph Ur 24 Hour Volume Ur Creatinine 24 Hour Ur Free Cortisol 24 Hr U Norepinephrine 24 Hr U Free Metanephrine U Normetanephrine 24h U Tot Metanephrine 24h Ur Dopamine 24 Hr U Tot Catecholamine 24h Dexamethasone 10/28/20 10/28/20 10/28/20 08:00 08:00 08:00 Potassium Creatinine Estimated GFR N-Telopeptide X-linked Renin Aldosterone 25-OH Vitamin D Total DHEA Sulfate PTH Intact Calcium (PTH Intact) Cortisol ACTH Plas Tot Catecholamine Dopamine Epinephrine Norepinephrine Plasma Free Metaneph Plasma Free Normeta Plas Total Metaneph Ur 24 Hour Volume 700 Ur Creatinine 24 Hour 1.05 Ur Free Cortisol 24 Hr 13.5 U Norepinephrine 24 Hr 65 U Free Metanephrine 93 U Normetanephrine 24h 418 U Tot Metanephrine 24h 511 Ur Dopamine 24 Hr 312 U Tot Catecholamine 24h 65 Dexamethasone 02/18/21 08:40 Potassium 4.0 Creatinine 0.70 Estimated GFR > 60 N-Telopeptide X-linked Renin Aldosterone 25-OH Vitamin D Total 33.9 DHEA Sulfate PTH Intact Calcium (PTH Intact) Cortisol ACTH Plas Tot Catecholamine Dopamine Epinephrine Norepinephrine Plasma Free Metaneph Plasma Free Normeta Plas Total Metaneph Ur 24 Hour Volume Ur Creatinine 24 Hour Ur Free Cortisol 24 Hr U Norepinephrine 24 Hr U Free Metanephrine U Normetanephrine 24h U Tot Metanephrine 24h Ur Dopamine 24 Hr U Tot Catecholamine 24h Dexamethasone PFSH Medical History Pulmonary nodules Hiatal hernia Coronary artery disease Hypercholesterolemia Orthopnea Gastroparesis Headache Lower extremity edema Urinary frequency Right shoulder pain Constipation Abdominal bloating Shoulder pain, right Hip pain, left Nasal congestion Chest pain NSTEMI (non-ST elevated myocardial infarction) Fall HLD (hyperlipidemia) Colon cancer screening Pleural effusion, right Nocturia more than twice per night Glaucoma Cataract of left eye Renal cyst Preop exam for internal medicine On beta kamryn at home Vitamin D deficiency Osteoporosis Restless leg syndrome Type 2 diabetes mellitus with diabetic polyneuropathy Tubal ligation evaluation Adrenal adenoma Pulmonary nodule Fracture of toe of left foot Positive MAGGIE (antinuclear antibody) Osteoarthritis of both knees Osteopenia Ulnar neuropathy Asthma GERD (gastroesophageal reflux disease) Obesity (BMI 30-39.9) Surgical History Hx of right cataract extraction History of esophagogastroduodenoscopy (EGD) Hx of colonoscopy History of breast biopsy History of tubal ligation History of laparoscopic cholecystectomy Family History Mother HTN (hypertension) Diabetes Brother Lung cancer Sister Cancer, colon Daughter Uterine cancer Father Prostate cancer Social History Household Members: Spouse Household Members Other:: Granddaughter is CUSTOM STOCK MAKER lives upstairs Housing: Other Housing Other:: m2 family house Are you a primary healthcare facility administrator to a significant other at home: No Do you presently have visiting nurse or other home services: Yes (CUSTOM STOCK MAKER every day) Alcohol intake: never Patient Tobacco Use Status: Former Tobacco user Quit Date: quit years ago Tobacco use type: Cigarette e-Cigarette/Vaping Use: Never Used Second Hand Smoke Exposure: No service: No Current occupational status: retired and disabled Cognitive needs: No Hearing needs: No Vision needs: Yes (glasses) Physical Exam Vital Signs: Last Vital Signs Pulse 82 01/24/24 12:55 BP 140/66 H 01/24/24 12:55 BMI result Body Mass Index 30.6 Absence of Cushingoid features. Absence of acromegalic features. Neck exam reveals nl size thyroid about 15 gms. No thyroid nodules palpable. No carotid bruits present. Lungs CTA. Heart S1 S2, Reg R/R. No M/R/ G. Skin exam reveals absence of vitiligo or acanthosis nigricans. Abdominal exam reveals Soft NT/ND with NA BS. No organomegaly present. Neck Other: . Extrem Other: Visual exam of foot performed. No ulcerations or open lesions. No onchomycosis, no callouses.Pulses 2 + distally Sensation intact to monofilament exam. 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 Patient should follow-up with the assistant health educator.. She will meet with the nurse today to learn how to inject prandial insulin. We will also increase Mounjaro to 5 mg Q weekly if available (2) Adrenal adenoma: Code(s): D35.00 - Benign neoplasm of unspecified adrenal gland Category: Medical Qualifiers: Laterality: unspecified laterality Qualified Code(s): D35.00 - Benign neoplasm of unspecified adrenal gland Plan: CT scan characteristics showed benign adenoma. No need for further imaging. Further workup in past showed that mass was non secretory. Recent follow-up workup for secretion was negative including workup for Corcoran's and pheochromocytoma. Will continue to follow on a yearly basis Medications: New insulin lispro (Humalog KwikPen (U-100) Insulin) 8 units (0.08 mL) subcut TID 15 mL 5RF blood-glucose sensor ([employer] G7 Sensor device) As directed change every 10 days 3 ea 4RF tirzepatide (Mounjaro) 5 mg (0.5 mL) subcut QWEEK 2 mL 4RF Discontinued tirzepatide (Mounjaro) Discontinued Reason: Doctor's Order 2.5 mg (0.5 mL) subcut QWEEK 4 weeks 2 mL 0RF E11.65 - Type 2 diabetes mellitus with hyperglycemia Coding Level of Care Code Est Pt Level 4 (00248) Diagnoses Type 2 diabetes mellitus with hyperglycemia, unspecified whether petroleum terminal plant operator insulin use E11.65 Diabetes mellitus fdc insulin use: unspecified fdc insulin use status Adrenal adenoma, unspecified laterality D35.00 Laterality: unspecified laterality
[2024-01-24 12:55] VITALS: BP 140/66; PULSE 82; BMI 30.6
[2024-01-24 13:09] LABS: Glucose, Whole Blood 129 mg/dL (60-115)
== END 2024-01-24 13:37 | disposition home or self-care (01) ==
PROVIDERS: PCP Internal Medicine; Visit Provider Internal Medicine Endocrinology, Diabetes & Metabolism
DX: E11.65 Type 2 diabetes mellitus with hyperglycemia (principal); D35.00 Benign neoplasm of unspecified adrenal gland
CPT/HCPCS: 99214

== ENCOUNTER → 2024-01-24 12:38 | Outpatient (BNVA) | payer OTHER, SELFPAY | PROVIDERS: PCP Internal Medicine; Visit Provider Internal Medicine Endocrinology, Diabetes & Metabolism | DX: E11.65 Type 2 diabetes mellitus with hyperglycemia (principal); D35.00 Benign neoplasm of unspecified adrenal gland | CPT/HCPCS: 82947; 99212 ==

== ENCOUNTER 2024-02-06 09:18 | Outpatient (AMB) | payer OTHER, SELFPAY ==
[2024-02-06 09:35] VITALS: PULSE 77; O2SAT 99; BMI 31.4
--- NOTE | 2024-02-06 09:35 | MHC.OFFVIS ---
Vital Signs 02/06/24 09:35 Height 5 ft 2 in Weight 171 lb 15.369 oz BMI 31.4 Pulse 77 Pulse Source Pulse Oximeter Pulse Oximetry (%) 99 Oxygen Delivery Method Room Air Intake Visit Reasons: Asthma Health Policy Manager Required: No Allergies aspirin [Aspirin] Allergy (Mild, Verified 02/06/24 09:36) Abdominal Pain Penicillins Allergy (Mild, Verified 02/06/24 09:36) NAUSEA/STOMACH PAIN hydrochlorothiazide Allergy (Unknown, Verified 02/06/24 09:36) hypokalemia lisinopril Allergy (Unknown, Verified 02/06/24 09:36) ? swelling Lvmpbhn-AUF-MtA Reductase Inhibitor Allergy (Unknown, Verified 02/06/24 09:36) Muscle cramps ibuprofen [From Motrin] Adverse Reaction (Unknown, Verified 02/06/24 09:36) Abdominal Pain HPI Comments Details: The patient is a73 y/o woman with a history of asthma. She has been on Wixela and seems to be helpful. Back in the Fall she did go to the ED with a flare up. She is have a CXR that we reviewed with no acute disease. She was treated with prednisone at that time. She did have PFTs back in 2019, which demonstrated limited inspiratory flows at that time. The patient did have a CT scan of the chest that also reviewed back in 2016 that demonstrated a small hiatal hernia and also subcentimeter pulmonary nodules. The patient has not had any further imaging studies to review the pulmonary nodules at this time. 02/06/2024 the patient is here for a pulmonary follow-up visit. Overall the patient has been doing well. She has been using Wixela twice a day. She is finds it helpful. She is having some muscle spasms at nighttime. Is affecting her sleep. We did talk about this point decreasing the Wixela down to just in the morning to try to minimize on the potassium chest. The patient also can try some magnesium [id number] to see if this provides some relief. We did review her CT scan of the chest. Pulmonary nodules are stable. She has a small hiatal hernia that still stable as well. No further CAT scans are warranted. [facility] Medical History Pulmonary nodules Hiatal hernia Coronary artery disease Hypercholesterolemia Orthopnea Gastroparesis Headache Lower extremity edema Urinary frequency Right shoulder pain Constipation Abdominal bloating Shoulder pain, right Hip pain, left Nasal congestion Chest pain NSTEMI (non-ST elevated myocardial infarction) Fall HLD (hyperlipidemia) Colon cancer screening Pleural effusion, right Nocturia more than twice per night Glaucoma Cataract of left eye Renal cyst Preop exam for internal medicine On beta kamryn at home Vitamin D deficiency Osteoporosis Restless leg syndrome Type 2 diabetes mellitus with diabetic polyneuropathy Tubal ligation evaluation Adrenal adenoma Pulmonary nodule Fracture of toe of left foot Positive MAGGIE (antinuclear antibody) Osteoarthritis of both knees Osteopenia Ulnar neuropathy Asthma GERD (gastroesophageal reflux disease) Obesity (BMI 30-39.9) Surgical History Hx of right cataract extraction History of esophagogastroduodenoscopy (EGD) Hx of colonoscopy History of breast biopsy History of tubal ligation History of laparoscopic cholecystectomy Family History Mother HTN (hypertension) Diabetes Brother Lung cancer Sister Cancer, colon Daughter Uterine cancer Father Prostate cancer Social History Household Members: Spouse Household Members Other:: Granddaughter is ENGINEERING INSTRUCTOR lives upstairs Housing: Other Housing Other:: m2 family house Are you a primary career orientation teacher to a significant other at home: No Do you presently have visiting nurse or other home services: Yes (ENGINEERING INSTRUCTOR every day) Alcohol intake: never Patient Tobacco Use Status: Former Tobacco user Quit Date: quit years ago Tobacco use type: Cigarette e-Cigarette/Vaping Use: Never Used Second Hand Smoke Exposure: No service: No Current occupational status: retired and disabled Cognitive needs: No Hearing needs: No Vision needs: Yes (glasses) Review of Systems Const Denies chills, Denies fatigue, Denies fever(s) and Denies weight gain ENT Denies dizziness Card Denies chest pain and Reports dyspnea on exertion Resp Reports cough and Reports dyspnea on exertion GI Denies hematochezia and Denies change in stool character Musc Denies abnormal gait, Denies muscle weakness, Denies numbness, Denies radiating pain into limb and Denies tingling Neuro Denies abnormal gait, Denies dizziness, Denies numbness and Denies tingling Endo Denies fatigue Physical Exam Vital Signs: Last Vital Signs Pulse 77 05/29/24 09:35 Pulse Ox 99 02/06/24 09:35 Oxygen Delivery Method Room Air 02/06/24 09:35 BMI result Body Mass Index 31.4 Const General: healthy appearing, no acute distress and well developed Nutritional Appearance: well nourished Orientation/consciousness: patient oriented x3 Chest Chest palpation & inspection: normal inspection of the chest Resp Effort & Inspection: normal respiratory effort and no tracheal deviation Auscultation: clear to auscultation bilaterally Cardio Rate: regular rate Heart sounds: S1 normal heart sound present and S2 normal heart sound present GI Palpation (GI): Soft to palpation and nontender Skin General skin exam: turgor normal Neuro General: patient oriented x3 Extrem General: Yes no clubbing, cyanosis or edema Psych Appearance: grossly normal Mental Status: mental status grossly normal Results Reviewed Results Reviewed: [address] [address] [address] Scan Report Signed Patient: Anahy Hogan MR#: [id number] : 1950 Acct:[id number] Age/Sex: 73 / F ADM Date: 12/31/23 Loc: HO.CT Attending Dr: Anthony Vu MD Ordering Physician: Anthony Vu MD Date of Service: 12/31/23 Procedure(s): CT chest wo IV con Accession Number(s): [id number] cc: Junior Zayas MD; Anthony Vu MD~ EXAMINATION: CT CHEST WITHOUT CONTRAST CLINICAL INFORMATION: Lung nodules. COMPARISON: Chest radiograph 07/13/2023, CT abdomen and pelvis 01/31/2023, CTA chest 03/05/2015. TECHNIQUE: Multidetector volumetric CT imaging of the chest was done. Axial MIP volume rendering provided. Sagittal and coronal reformatted images were obtained. This CT examination was performed using dose optimization techniques as appropriate, variously including the following: *Automated exposure control *Adjustment of mA and/or kV according to patient size (this includes techniques or standardized protocols for targeted exams where dose is matched to indication/reason for exam; i.e. extremities or head) *Use of iterative reconstruction technique DLP: 138 mGy-cm FINDINGS: LUNGS: Mild emphysematous changes are seen. Scattered pulmonary nodular densities are seen the largest measuring 5 mm in size likely fissural and perifissural lymph nodes in the right middle lobe (5:233 and 209). A number of small calcified granulomas are present. Findings are essentially unchanged when compared to the 2017 study. No increasing or suspicious lung mass is seen. No bronchiectasis. No infiltrates. MEDIASTINUM: The mediastinum is normal. CORONARY ARTERY CALCIFICATION: Moderate. PLEURA: There is no pleural effusion. No pleural mass or thickening. AXILLA: No lymphadenopathy. UPPER ABDOMEN: A small hiatal hernia is present. There is a water density 2.9 x 2.7 x 3.0 cm left adrenal mass consistent with a benign adenoma which needs no additional imaging or followup. Similar finding was seen on prior CT abdomen and pelvis. OSSEOUS STRUCTURES: Degenerative changes are seen in the spine. CT/CT chest wo IV con IMPRESSION: 1. Mild emphysematous changes. 2. Scattered pulmonary nodular densities the largest measuring 5 mm in size. These are without significant change when compared to the 2017 study. 3. Incidental note made of a benign left adrenal adenoma which needs no additional imaging or followup. Fleischner guidelines were followed. Dictated By: Ronnie Garcia MD Signed By: <Electronically signed by Ronnie Garcia MD in OV> 01/05/24 1154 DD/ 1000 TD/TT: Chemical Manager: KYUNG Assessment & Plan Assessment & Plan (1) Asthma: Code(s): J45.909 - Unspecified asthma, uncomplicated Category: Medical Qualifiers: Asthma complication type: uncomplicated Asthma persistence: intermittent Asthma severity: mild Qualified Code(s): J45.20 - Mild intermittent asthma, uncomplicated (2) Hiatal hernia: Code(s): K44.9 - Diaphragmatic hernia without obstruction or gangrene Category: Medical (3) Pulmonary nodules: Code(s): R91.8 - Other nonspecific abnormal finding of lung field Category: Medical Plan continue Wixela, decrease to daily Having potassium rich foods consider trial of magnesium for muscle spasms LISA as needed reflux diet sleep with HOB elevated CT chest with stable nodules, no further f/u is warranted Should have the Prevnar 20 vaccine, she is not sure F/U 8-12 months Coding Level of Care Code Est Pt Level 4 (78724) Diagnoses Mild intermittent asthma without complication J45.20 Asthma complication type: uncomplicated Asthma persistence: intermittent Asthma severity: mild Hiatal hernia K44.9 Pulmonary nodules R91.8 Time Spent (min) 17
== END 2024-02-06 09:52 | disposition home or self-care (01) ==
PROVIDERS: PCP Internal Medicine; Visit Provider Hospitalist
DX: J45.20 Mild intermittent asthma, uncomplicated (principal); K44.9 Diaphragmatic hernia without obstruction or gangrene; R91.8 Other nonspecific abnormal finding of lung field
CPT/HCPCS: 99214

== ENCOUNTER → 2024-02-06 09:18 | Outpatient (BNVA) | payer OTHER, SELFPAY | PROVIDERS: PCP Internal Medicine; Visit Provider Hospitalist | DX: J45.20 Mild intermittent asthma, uncomplicated (principal); R91.8 Other nonspecific abnormal finding of lung field; K44.9 Diaphragmatic hernia without obstruction or gangrene | CPT/HCPCS: 99212 ==

== ENCOUNTER 2024-02-15 10:02 | Outpatient (AMB) | payer OTHER, SELFPAY ==
--- NOTE | 2024-02-15 10:19 | A.OFFVIS_ITS ---
Vital Signs 02/15/24 10:28 Height 5 ft 2 in Weight 174 lb 9.698 oz BMI 31.9 BP 144/68 H Blood Pressure Location Lt brachial Position Sitting Pulse 76 Pulse Source Pulse Oximeter Pulse Oximetry (%) 99 Oxygen Delivery Method Room Air Intake Visit Reasons: 6 month follow up r/s from 01/03 Intake Note: Anahy presents in office today for a scheduled 6 mos FUV. CC; Pt states that she is feeling quite well and denies any significant sx or concerns at this time. Telecommunications Linesworker Required: Yes Telecommunications Linesworker Name: [id number] Sj Allergies aspirin [Aspirin] Allergy (Mild, Verified 02/15/24 10:25) Abdominal Pain Penicillins Allergy (Mild, Verified 02/15/24 10:25) NAUSEA/STOMACH PAIN hydrochlorothiazide Allergy (Unknown, Verified 02/15/24 10:25) hypokalemia lisinopril Allergy (Unknown, Verified 02/15/24 10:25) ? swelling Edgmryy-IRT-DbL Reductase Inhibitor Allergy (Unknown, Verified 02/15/24 10:25) Muscle cramps ibuprofen [From Motrin] Adverse Reaction (Unknown, Verified 02/15/24 10:25) Abdominal Pain HPI HPI 6 month follow up r/s from 01/03: Details: LAST VISIT: Anemia Abdominal bloating Constipation GERD (gastroesophageal reflux disease) Gastroparesis Plan Patient will continue to increase fluid intake and activity to promote better bowel motility. Patient reports that she is feeling better. Patient will report in 6 weeks to discuss colonoscopy. Patient is having appointment with assembler truck trailer in the beginning December. Will ask for risk stratification. Patient is on Plavix now and aspirin. Both patient and her daughter are agreeable to plan of care and verbalizes understanding of instructions. They were given the opportunity to ask questions and all questions answered. TODAY'S VISIT Patient is here today for follow-up. Patient is accompanied by her daughter. [facility] assistant winemaker used during visit. Patient was seen by Cardiology back in December and recommendation was to weight with trying to schedule procedure until May cardiology appointment. Patient reports that she has been doing well. Denies any abdominal pain or discomfort. However patient does admit to feel bloated and not emptying her bowels well. Patient currently is taking stool softeners. Patient denies melena, hematochezia, unintentional weight loss or ribbon like stools. Patient denies any dyspepsia, dysphagia or odynophagia. Currently patient is taking pantoprazole twice a day. She continues taking iron daily. [facility] Medical History Pulmonary nodules Hiatal hernia Coronary artery disease Hypercholesterolemia Orthopnea Gastroparesis Headache Lower extremity edema Urinary frequency Right shoulder pain Constipation Abdominal bloating Shoulder pain, right Hip pain, left Nasal congestion Chest pain NSTEMI (non-ST elevated myocardial infarction) Fall HLD (hyperlipidemia) Colon cancer screening Pleural effusion, right Nocturia more than twice per night Glaucoma Cataract of left eye Renal cyst Preop exam for internal medicine On beta kamryn at home Vitamin D deficiency Osteoporosis Restless leg syndrome Type 2 diabetes mellitus with diabetic polyneuropathy Tubal ligation evaluation Adrenal adenoma Pulmonary nodule Fracture of toe of left foot Positive MAGGIE (antinuclear antibody) Osteoarthritis of both knees Osteopenia Ulnar neuropathy Asthma GERD (gastroesophageal reflux disease) Obesity (BMI 30-39.9) Surgical History Hx of right cataract extraction History of esophagogastroduodenoscopy (EGD) Hx of colonoscopy History of breast biopsy History of tubal ligation History of laparoscopic cholecystectomy Family History Mother HTN (hypertension) Diabetes Brother Lung cancer Sister Cancer, colon Daughter Uterine cancer Father Prostate cancer Social History Household Members: Spouse Household Members Other:: Granddaughter is MEN'S GARMENT FITTER lives upstairs Housing: Other Housing Other:: m2 family house Are you a primary point of care technician to a significant other at home: No Do you presently have visiting nurse or other home services: Yes (MEN'S GARMENT FITTER every day) Alcohol intake: never Patient Tobacco Use Status: Former Tobacco user Tobacco use type: Cigarette e-Cigarette/Vaping Use: Never Used Second Hand Smoke Exposure: No service: No Current occupational status: retired and disabled Cognitive needs: No Hearing needs: No Vision needs: Yes (glasses) Review of Systems Const Denies weight gain and Denies weight loss ENT Reports no additional complaints, Denies dysphagia and Denies odynophagia Card Reports no additional complaints Resp Reports no additional complaints GI Denies abdominal pain, Denies belching, Denies melena, Denies bloating, Denies change in bowel habits, Denies dysphagia, Denies excessive flatus, Denies dyspepsia, Denies heartburn, Denies diarrhea, Denies loose stools, Denies nausea, Denies odynophagia and Denies vomiting Musc Reports no additional complaints Neuro Reports no additional complaints Psych Reports no additional complaints Endo Reports no additional complaints Physical Exam Vital Signs: Last Vital Signs Pulse 76 02/15/24 10:28 BP 144/68 H 02/15/24 10:28 Pulse Ox 99 02/15/24 10:28 Oxygen Delivery Method Room Air 02/15/24 10:28 BMI result Body Mass Index 31.9 Const General: healthy appearing and no acute distress Nutritional Appearance: obese Orientation/consciousness: patient oriented x3 Resp Effort & Inspection: normal respiratory effort, able to speak in complete sentences, no tracheal deviation and symmetric chest movement Auscultation: clear to auscultation bilaterally Cardio Rate: regular rate GI Inspection: Yes normal to inspection and No distended Palpation (GI): Soft to palpation, not firm, nontender and No hepatosplenomegaly present Auscultation: normal bowel sounds General: Yes no CVA tenderness Back/Spine/Pelvis Back: no CVA tenderness Skin General skin exam: elasticity normal, turgor normal and dry skin Neuro General: patient oriented x3 Psych Appearance: grossly normal Mental Status: mental status grossly normal Assessment & Plan Assessment & Plan (1) Anemia: Code(s): D64.9 - Anemia, unspecified Category: Medical Qualifiers: Anemia type: unspecified type Qualified Code(s): D64.9 - Anemia, unspecified (2) Abdominal bloating: Code(s): R14.0 - Abdominal distension (gaseous) Category: Medical (3) Constipation: Code(s): K59.00 - Constipation, unspecified Category: Medical Qualifiers: Constipation type: slow transit constipation Qualified Code(s): K59.01 - Slow transit constipation (4) GERD (gastroesophageal reflux disease): Code(s): K21.9 - Gastro-esophageal reflux disease without esophagitis Category: Medical Qualifiers: Esophagitis presence: without esophagitis Qualified Code(s): K21.9 - Gastro-esophageal reflux disease without esophagitis (5) Gastroparesis: Code(s): K31.84 - Gastroparesis Category: Medical Plan Continue current PPI regimen. Avoid dietary triggers and late night snacking. Increase fluid intake and activity to promote better bowel motility. Patient will start taking senna. Smaller meals and more often. Staying upright for minimum 3 hours after meals discussed with patient. Patient is due for colonoscopy, however unable to stop Plavix yet till May. Patient has follow-up with Cardiology in May. Will send message to surgical scheduled today to book colonoscopy and upper endoscopy, however patient will follow-up in the office in May to discuss prep and both procedures. Patient is agreeable to this plan and verbalizes understanding of instructions. She was given the opportunity to ask questions and all questions answered. Thank you for allowing me to participate in her care Medications: New sennosides (Natural Senna Laxative) 17.2 mg (2 x 8.6 mg) PO BEDTIME 60 tabs 3RF constipation K59.00 - Constipation, unspecified Coding Level of Care Code Est Pt Level 3 (46925) Diagnoses Anemia D64.9 Anemia type: unspecified type Abdominal bloating R14.0 Slow transit constipation K59.01 Constipation type: slow transit constipation Gastroesophageal reflux disease without esophagitis K21.9 Esophagitis presence: without esophagitis Gastroparesis K31.84 Time Spent (min) 30 Comment 20 minutes spent with patient and additional 10 minutes spent reviewing her records
[2024-02-15 10:28] VITALS: BP 144/68; PULSE 76; O2SAT 99; BMI 31.9
== END 2024-02-15 11:17 | disposition home or self-care (01) ==
PROVIDERS: PCP Internal Medicine; Visit Provider Nurse Practitioner Family
DX: D64.9 Anemia, unspecified (principal); R14.0 Abdominal distension (gaseous); K59.01 Slow transit constipation; K21.9 Gastro-esophageal reflux disease without esophagitis; K31.84 Gastroparesis
CPT/HCPCS: 99213

== ENCOUNTER → 2024-02-15 10:02 | Outpatient (BNVA) | payer OTHER, SELFPAY | PROVIDERS: PCP Internal Medicine; Visit Provider Nurse Practitioner Family | DX: D64.9 Anemia, unspecified (principal); R14.0 Abdominal distension (gaseous); K59.01 Slow transit constipation; K21.9 Gastro-esophageal reflux disease without esophagitis; K31.84 Gastroparesis | CPT/HCPCS: 99212 ==

== ENCOUNTER 2024-03-15 16:08 | Emergency (ER) | payer OTHER, SELFPAY ==
[2024-03-15 16:33] VITALS: BP 130/64; PULSE 74; RESP 16; TEMP 36.1; O2SAT 97; BMI 34.2
--- NOTE | 2024-03-15 16:36 | ED_ITS ---
HPI - General Adult General Stated complaint: joselito leg swelling,bruising Related Data Home Medications ?Medication ?Instructions ?Recorded ?Confirmed pantoprazole 40 mg tablet,delayed 40 mg PO BID@0630,1630 08/14/23 01/14/24 release brimonidine 0.2 % eye drops drp ophthalmic (eye) 02/15/24 docusate sodium 100 mg capsule 100 mg PO BEDTIME 02/15/24 latanoprost 0.005 % eye drops drp ophthalmic (eye) 02/15/24 Previous Rx's ?Medication ?Instructions ?Recorded nebulizers (Altera Nebulizer #1 ea 06/29/20 System) blood pressure monitor (Blood #1 ea 11/01/22 Pressure Kit) lancets 33 gauge #100 ea 05/08/23 adult pull ups #180 ea 05/09/23 aspirin 81 mg tablet,delayed 81 mg PO DAILY 90 days #90 tabs 06/11/23 release blood sugar diagnostic (OneTouch #50 ea 06/25/23 Verio test strips) ferrous sulfate 325 mg (65 mg 325 mg PO BID #60 tabs 09/12/23 iron) tablet ezetimibe 10 mg tablet (Zetia) 10 mg PO DAILY #90 tabs 10/12/23 fluticasone 250 mcg-salmeterol 50 1 ea PO BID #60 ea 10/30/23 mcg/dose blistr powdr for inhalation (Donovanela Inhub) tizanidine 4 mg capsule 4 mg PO BEDTIME PRN muscle 11/27/23 spasticity #30 caps amlodipine 5 mg tablet 5 mg PO DAILY #30 tabs 12/01/23 insulin glargine 100 unit/mL (3 10 unit (0.1 mL) subcut QPM #3 mL 12/01/23 mL) subcutaneous pen (Basaglar KwikPen U-100 Insulin) rosuvastatin 20 mg tablet 20 mg PO DAILY #30 tabs 12/01/23 nitrofurantoin 100 mg PO Q12H 7 days #14 caps 12/07/23 monohydrate/macrocrystals 100 mg capsule (Macrobid) metformin 500 mg tablet 1,000 mg (2 x 500 mg) PO BID #120 12/31/23 tabs cholecalciferol (vitamin D3) 50 50 mcg PO DAILY #28 caps 01/15/24 mcg (2,000 unit) capsule (Vitamin D3) metoprolol tartrate 100 mg tablet 100 mg PO BID #180 tabs 01/16/24 blood-glucose sensor (Dexcom G7 #3 ea 01/24/24 Sensor device) insulin lispro 100 unit/mL 8 unit (0.08 mL) subcut TID #15 mL 01/24/24 subcutaneous pen (Humalog KwikPen (U-100) Insulin) tirzepatide 5 mg/0.5 mL 5 mg (0.5 mL) subcut QWEEK #2 mL 01/24/24 subcutaneous pen injector (Mounjaro) sennosides 8.6 mg tablet (Natural 17.2 mg (2 x 8.6 mg) PO BEDTIME 02/15/24 Senna Laxative) constipation #60 tabs clopidogrel 75 mg tablet (Plavix) 75 mg PO DAILY #30 tabs 02/19/24 furosemide 20 mg tablet 20 mg PO DAILY #30 tabs 02/19/24 losartan 50 mg tablet 50 mg PO DAILY #30 tabs 02/19/24 Allergies Allergy/AdvReac Type Severity Reaction Status Date / Time aspirin [Aspirin] Allergy Mild Abdominal Verified 03/15/24 16:34 Pain Penicillins Allergy Mild NAUSEA/STOMACH Verified 03/15/24 16:34 PAIN hydrochlorothiazide Allergy Unknown hypokalemia Verified 03/15/24 16:34 lisinopril Allergy Unknown ? swelling Verified 03/15/24 16:34 [id number]-[id number]-TrT Reductase Allergy Unknown Muscle Verified 03/15/24 16:34 Inhibitor cramps ibuprofen [From Motrin] AdvReac Unknown Abdominal Verified 03/15/24 16:34 Pain PMFSH Past Medical History Medical History Pulmonary nodules Hiatal hernia Coronary artery disease Hypercholesterolemia Orthopnea Gastroparesis Headache Lower extremity edema Urinary frequency Right shoulder pain Constipation Abdominal bloating Shoulder pain, right Hip pain, left Nasal congestion Chest pain NSTEMI (non-ST elevated myocardial infarction) Fall HLD (hyperlipidemia) Colon cancer screening Pleural effusion, right Nocturia more than twice per night Glaucoma Cataract of left eye Renal cyst Preop exam for internal medicine On beta kamryn at home Vitamin D deficiency Osteoporosis Restless leg syndrome Type 2 diabetes mellitus with diabetic polyneuropathy Tubal ligation evaluation Adrenal adenoma Pulmonary nodule Fracture of toe of left foot Positive MAGGIE (antinuclear antibody) Osteoarthritis of both knees Osteopenia Ulnar neuropathy Asthma GERD (gastroesophageal reflux disease) Obesity (BMI 30-39.9) Surgical History Hx of right cataract extraction History of esophagogastroduodenoscopy (EGD) Hx of colonoscopy History of breast biopsy History of tubal ligation History of laparoscopic cholecystectomy Family History Family History Mother HTN (hypertension) Diabetes Brother Lung cancer Sister Cancer, colon Daughter Uterine cancer Father Prostate cancer Social History Social History Household Members: Spouse Household Members Other:: Granddaughter is DISH TECHNICIAN lives upstairs Housing: Other Housing Other:: m2 family house Are you a primary medicare contact specialist to a significant other at home: No Do you presently have visiting nurse or other home services: Yes (DISH TECHNICIAN every day) Alcohol intake: never Patient Tobacco Use Status: Former Tobacco user Tobacco use type: Cigarette e-Cigarette/Vaping Use: Never Used Second Hand Smoke Exposure: No service: No Current occupational status: retired and disabled Cognitive needs: No Hearing needs: No Vision needs: Yes (glasses) Course Course Course Narrative: This is a Rapid Medical Examination (RME) performed by Vu Babcock PA-C in triage. Full HPI, ROS, assessment and treatment plan per primary provider in the Main ED. 73 yo female with hx of NSTEMI May 2023- currently on brilinta and baby aspirin, gastroparesis, HTN, DM, GERD, CAD, HLD, obesity, asthma, not on AC here for eval of bilateral leg swelling and bruising. on exam, no pitting edema. no calf tenderness. Plan: labs ordered Reevaluation(s) Reevaluation #1: Patient left the ED without completing treatment. Discharge Plan Discharge Clinical Impression: Swelling of both lower extremities Patient Disposition: Left W/O Completing Treatment Prescriptions: No Action (DME) lancets 33 gauge misc See Rx Instructions .ROUTE .MEDSUPPLY Qty: 100 11RF Rx Instructions: As directed twice a day (DME) adult pull ups LARGE See Rx Instructions .Route .MEDSUPPLY Qty: 180 0RF Rx Instructions: As directed aspirin 81 mg tablet,delayed release (DR/EC) 81 mg PO DAILY 90 Days Qty: 90 3RF (DME) OneTouch Verio test strips Strip See Rx Instructions .ROUTE .MEDSUPPLY Qty: 50 11RF Rx Instructions: As directed twice a day, fasting am and at bedtime ezetimibe [Zetia] 10 mg tablet 10 mg PO DAILY Qty: 90 0RF fluticasone propion-salmeterol [Wixela Inhub] 250-50 mcg/dose blister with device 1 ea PO BID Qty: 60 0RF tizanidine 4 mg capsule 4 mg PO BEDTIME PRN (Reason: muscle spasticity) Qty: 30 5RF insulin glargine [Basaglar KwikPen U-100 Insulin] 100 unit/mL (3 mL) insulin pen 10 unit subcut QPM Qty: 3 5RF rosuvastatin 20 mg tablet 20 mg PO DAILY Qty: 30 3RF amlodipine 5 mg tablet 5 mg PO DAILY Qty: 30 3RF nitrofurantoin monohyd/m-cryst [Macrobid] 100 mg capsule 100 mg PO Q12H 7 Days Qty: 14 0RF Rx Instructions: must administer with a meal/food metformin 500 mg tablet 1,000 mg PO BID Qty: 120 5RF cholecalciferol (vitamin D3) [Vitamin D3] 50 mcg (2,000 unit) capsule 50 mcg PO DAILY Qty: 28 1RF metoprolol tartrate 100 mg tablet 100 mg PO BID Qty: 180 1RF losartan 50 mg tablet 50 mg PO DAILY Qty: 30 1RF clopidogrel [Plavix] 75 mg tablet 75 mg PO DAILY Qty: 30 1RF furosemide 20 mg tablet 20 mg PO DAILY Qty: 30 3RF pantoprazole 40 mg tablet,delayed release (DR/EC) 40 mg PO BID@0630,1630 (DME) Altera Nebulizer System Misc See Rx Instructions .ROUTE .MEDSUPPLY Qty: 1 0RF Rx Instructions: As directed updraft Q 4 hours prn with albuterol (DME) blood pressure monitor [Blood Pressure Kit] Kit See Rx Instructions .ROUTE .MEDSUPPLY Qty: 1 0RF Rx Instructions: As directed ferrous sulfate 325 mg (65 mg iron) tablet 325 mg PO BID Qty: 60 4RF insulin lispro [Humalog KwikPen Insulin] 100 unit/mL insulin pen 8 unit subcut TID Qty: 15 5RF (DME) Dexcom G7 Sensor Device See Rx Instructions .Route Qty: 3 4RF Rx Instructions: As directed change every 10 days Mounjaro 5 mg/0.5 mL pen injector 5 mg subcut QWEEK Qty: 2 4RF latanoprost 0.005 % drops ophthalmic (eye) brimonidine 0.2 % drops ophthalmic (eye) docusate sodium 100 mg capsule 100 mg PO BEDTIME sennosides [Natural Senna Laxative] 8.6 mg tablet 17.2 mg PO BEDTIME Qty: 60 3RF Print Language: Danish
== END 2024-03-15 16:57 | disposition left against medical advice (07) ==
PROVIDERS: Emergency Provider Emergency Medicine; PCP Internal Medicine
DX: M79.89 Other specified soft tissue disorders (principal); E11.9 Type 2 diabetes mellitus without complications; I10 Essential (primary) hypertension; E78.5 Hyperlipidemia, unspecified; Z79.82 Long term (current) use of aspirin; Z79.899 Other long term (current) drug therapy; Z79.02 Long term (current) use of antithrombotics/antiplatelets; Z79.84 Long term (current) use of oral hypoglycemic drugs; Z79.4 Long term (current) use of insulin
CPT/HCPCS: 99281; 99283

== ENCOUNTER 2024-03-30 12:37 | Emergency (ER) | payer OTHER, SELFPAY ==
--- NOTE | ~2024-03-30 | XR_ITS ---
EXAMINATION: XR CHEST CLINICAL INFORMATION: Lower extremity swelling. COMPARISON: CT chest 12/31/2023. Chest radiograph 07/13/2023. TECHNIQUE: 2 views of the chest were obtained. FINDINGS: Unchanged prominence of the cardiomediastinal silhouette. No focal airspace opacities, pleural effusion or pneumothorax. Unchanged nodular density projecting over the left upper lobe in between the posterior fifth and sixth ribs. Additional multiple subcentimeter pulmonary nodules are better visualized on prior CT chest. Thoracic spondylosis. Right upper quadrant surgical clips. No acute osseous findings. XR/XR chest 2V IMPRESSION: 1. No acute cardiopulmonary findings. 2. Multiple subcentimeter pulmonary nodules are better visualized on prior CT chest. 3. Unchanged prominence of the cardiomediastinal silhouette.
--- NOTE | ~2024-03-30 | US_ITS ---
EXAMINATION: US VENOUS ULTRASOUND WITH DOPPLER LOWER EXTREMITY, BILATERAL CLINICAL INFORMATION: Swelling COMPARISON: None available. TECHNIQUE: Ultrasound of the deep veins is performed from the hip to the calf with compression sonography and color and pulse Doppler assessment. Spectral analysis with color-flow imaging is performed. FINDINGS: RIGHT: There is normal venous compression and respiratory variation and augmented flow. The visualized common femoral vein, superficial femoral vein, profunda femoral vein, popliteal vein, and the trifurcation region shows no evidence of deep venous thrombosis. There is no significant popliteal fossa cyst. LEFT: There is normal venous compression and respiratory variation and augmented flow. The visualized common femoral vein, superficial femoral vein, profunda femoral vein, popliteal vein, and the trifurcation region shows no evidence of deep venous thrombosis. There is no significant popliteal fossa cyst. If the patient's symptoms persist, followup ultrasound in 5 days 7 days might be of value to exclude proximal propagation from a non-visualized calf vein. US/US venous duplex LE BI IMPRESSION: No DVT demonstrated in the both lower extremity.
[2024-03-30 12:39] VITALS: BP 144/69; PULSE 77; RESP 18; O2SAT 97; BMI 31.9
--- NOTE | 2024-03-30 12:40 | ED_ITS ---
HPI - General Adult General Stated complaint: swollen legs Related Data Home Medications ?Medication ?Instructions ?Recorded ?Confirmed pantoprazole 40 mg tablet,delayed 40 mg PO BID@0630,1630 08/14/23 01/14/24 release brimonidine 0.2 % eye drops drp ophthalmic (eye) 02/15/24 docusate sodium 100 mg capsule 100 mg PO BEDTIME 02/15/24 latanoprost 0.005 % eye drops drp ophthalmic (eye) 02/15/24 Previous Rx's ?Medication ?Instructions ?Recorded nebulizers (Altera Nebulizer #1 ea 06/29/20 System) blood pressure monitor (Blood #1 ea 11/01/22 Pressure Kit) lancets 33 gauge #100 ea 05/08/23 adult pull ups #180 ea 05/09/23 aspirin 81 mg tablet,delayed 81 mg PO DAILY 90 days #90 tabs 06/11/23 release blood sugar diagnostic (OneTouch #50 ea 06/25/23 Verio test strips) ferrous sulfate 325 mg (65 mg 325 mg PO BID #60 tabs 09/12/23 iron) tablet ezetimibe 10 mg tablet (Zetia) 10 mg PO DAILY #90 tabs 10/12/23 fluticasone 250 mcg-salmeterol 50 1 ea PO BID #60 ea 10/30/23 mcg/dose blistr powdr for inhalation (Wixela Inhub) tizanidine 4 mg capsule 4 mg PO BEDTIME PRN muscle 11/27/23 spasticity #30 caps amlodipine 5 mg tablet 5 mg PO DAILY #30 tabs 12/01/23 insulin glargine 100 unit/mL (3 10 unit (0.1 mL) subcut QPM #3 mL 12/01/23 mL) subcutaneous pen (Basaglar KwikPen U-100 Insulin) rosuvastatin 20 mg tablet 20 mg PO DAILY #30 tabs 12/01/23 nitrofurantoin 100 mg PO Q12H 7 days #14 caps 12/07/23 monohydrate/macrocrystals 100 mg capsule (Macrobid) metformin 500 mg tablet 1,000 mg (2 x 500 mg) PO BID #120 12/31/23 tabs metoprolol tartrate 100 mg tablet 100 mg PO BID #180 tabs 01/16/24 blood-glucose sensor (Dexcom G7 #3 ea 01/24/24 Sensor device) insulin lispro 100 unit/mL 8 unit (0.08 mL) subcut TID #15 mL 01/24/24 subcutaneous pen (Humalog KwikPen (U-100) Insulin) tirzepatide 5 mg/0.5 mL 5 mg (0.5 mL) subcut QWEEK #2 mL 01/24/24 subcutaneous pen injector (Mounjaro) sennosides 8.6 mg tablet (Natural 17.2 mg (2 x 8.6 mg) PO BEDTIME 02/15/24 Senna Laxative) constipation #60 tabs clopidogrel 75 mg tablet (Plavix) 75 mg PO DAILY #30 tabs 02/19/24 furosemide 20 mg tablet 20 mg PO DAILY #30 tabs 02/19/24 losartan 50 mg tablet 50 mg PO DAILY #30 tabs 02/19/24 cholecalciferol (vitamin D3) 50 50 mcg PO DAILY #28 caps 03/18/24 mcg (2,000 unit) capsule (Vitamin D3) Allergies Allergy/AdvReac Type Severity Reaction Status Date / Time aspirin [Aspirin] Allergy Mild Abdominal Verified 03/30/24 12:43 Pain Penicillins Allergy Mild NAUSEA/STOMACH Verified 03/30/24 12:43 PAIN hydrochlorothiazide Allergy Unknown hypokalemia Verified 03/30/24 12:43 lisinopril Allergy Unknown ? swelling Verified 03/30/24 12:43 Fkaujqb-NIQ-YoU Reductase Allergy Unknown Muscle Verified 03/30/24 12:43 Inhibitor cramps ibuprofen [From Motrin] AdvReac Unknown Abdominal Verified 03/30/24 12:43 Pain PMFSH Past Medical History Medical History Pulmonary nodules Hiatal hernia Coronary artery disease Hypercholesterolemia Orthopnea Gastroparesis Headache Lower extremity edema Urinary frequency Right shoulder pain Constipation Abdominal bloating Shoulder pain, right Hip pain, left Nasal congestion Chest pain NSTEMI (non-ST elevated myocardial infarction) Fall HLD (hyperlipidemia) Colon cancer screening Pleural effusion, right Nocturia more than twice per night Glaucoma Cataract of left eye Renal cyst Preop exam for internal medicine On beta kamryn at home Vitamin D deficiency Osteoporosis Restless leg syndrome Type 2 diabetes mellitus with diabetic polyneuropathy Tubal ligation evaluation Adrenal adenoma Pulmonary nodule Fracture of toe of left foot Positive MAGGIE (antinuclear antibody) Osteoarthritis of both knees Osteopenia Ulnar neuropathy Asthma GERD (gastroesophageal reflux disease) Obesity (BMI 30-39.9) Surgical History Hx of right cataract extraction History of esophagogastroduodenoscopy (EGD) Hx of colonoscopy History of breast biopsy History of tubal ligation History of laparoscopic cholecystectomy Family History Family History Mother HTN (hypertension) Diabetes Brother Lung cancer Sister Cancer, colon Daughter Uterine cancer Father Prostate cancer Social History Social History Household Members: Spouse Household Members Other:: Granddaughter is QUALITY MANAGEMENT NURSE lives upstairs Housing: Other Housing Other:: m2 family house Are you a primary home health care social worker to a significant other at home: No Do you presently have visiting nurse or other home services: Yes (QUALITY MANAGEMENT NURSE every day) Alcohol intake: never Patient Tobacco Use Status: Former Tobacco user Tobacco use type: Cigarette e-Cigarette/Vaping Use: Never Used Second Hand Smoke Exposure: No service: No Current occupational status: retired and disabled Cognitive needs: No Hearing needs: No Vision needs: Yes (glasses) Course Course Course Narrative: This is a rapid medical exam. Deferred additional HPI, ROS, PE to primary prov ider. 73 yo female asthma, DM, HTN, HLD, CAD here with LE swelling in both legs for months. Last few days had orthopnea, vague chest discomfort not exertional. On 20mg lasix daily, no weight gain. Per daughter they called the PCP and they have had several appointments but due to transportation the patient was unable to get there. Will obtain labs, EKG, CXR ALFREDS -Solo Arnold APRN Discharge Plan Discharge Prescriptions: No Action (DME) lancets 33 gauge misc See Rx Instructions .ROUTE .MEDSUPPLY Qty: 100 11RF Rx Instructions: As directed twice a day (DME) adult pull ups LARGE See Rx Instructions .Route .MEDSUPPLY Qty: 180 0RF Rx Instructions: As directed aspirin 81 mg tablet,delayed release (DR/EC) 81 mg PO DAILY 90 Days Qty: 90 3RF (DME) OneTouch Verio test strips Strip See Rx Instructions .ROUTE .MEDSUPPLY Qty: 50 11RF Rx Instructions: As directed twice a day, fasting am and at bedtime ezetimibe [Zetia] 10 mg tablet 10 mg PO DAILY Qty: 90 0RF fluticasone propion-salmeterol [Wixela Inhub] 250-50 mcg/dose blister with device 1 ea PO BID Qty: 60 0RF tizanidine 4 mg capsule 4 mg PO BEDTIME PRN (Reason: muscle spasticity) Qty: 30 5RF insulin glargine [Basaglar KwikPen U-100 Insulin] 100 unit/mL (3 mL) insulin pen 10 unit subcut QPM Qty: 3 5RF rosuvastatin 20 mg tablet 20 mg PO DAILY Qty: 30 3RF amlodipine 5 mg tablet 5 mg PO DAILY Qty: 30 3RF nitrofurantoin monohyd/m-cryst [Macrobid] 100 mg capsule 100 mg PO Q12H 7 Days Qty: 14 0RF Rx Instructions: must administer with a meal/food metformin 500 mg tablet 1,000 mg PO BID Qty: 120 5RF metoprolol tartrate 100 mg tablet 100 mg PO BID Qty: 180 1RF losartan 50 mg tablet 50 mg PO DAILY Qty: 30 1RF clopidogrel [Plavix] 75 mg tablet 75 mg PO DAILY Qty: 30 1RF furosemide 20 mg tablet 20 mg PO DAILY Qty: 30 3RF cholecalciferol (vitamin D3) [Vitamin D3] 50 mcg (2,000 unit) capsule 50 mcg PO DAILY Qty: 28 2RF pantoprazole 40 mg tablet,delayed release (DR/EC) 40 mg PO BID@0630,1630 (DME) Altera Nebulizer System [facility] See Rx Instructions .ROUTE .MEDSUPPLY Qty: 1 0RF Rx Instructions: As directed updraft Q 4 hours prn with albuterol (DME) blood pressure monitor [Blood Pressure Kit] Kit See Rx Instructions .ROUTE .MEDSUPPLY Qty: 1 0RF Rx Instructions: As directed ferrous sulfate 325 mg (65 mg iron) tablet 325 mg PO BID Qty: 60 4RF insulin lispro [Humalog KwikPen Insulin] 100 unit/mL insulin pen 8 unit subcut TID Qty: 15 5RF (DME) Dexcom G7 Sensor Device See Rx Instructions .Route Qty: 3 4RF Rx Instructions: As directed change every 10 days Mounjaro 5 mg/0.5 mL pen injector 5 mg subcut QWEEK Qty: 2 4RF latanoprost 0.005 % drops ophthalmic (eye) brimonidine 0.2 % drops ophthalmic (eye) docusate sodium 100 mg capsule 100 mg PO BEDTIME sennosides [Natural Senna Laxative] 8.6 mg tablet 17.2 mg PO BEDTIME Qty: 60 3RF Print Language: Bahamian
--- NOTE | 2024-03-30 12:43 | ECG_ITS ---
Test Reason : SOB Blood Pressure : / mmHG Vent. Rate : 075 BPM Atrial Rate : 075 BPM P-R Int : 150 ms QRS Dur : 076 ms QT Int : 406 ms P-R-T Axes : 059 010 065 degrees QTc Int : 453 ms Artifact in tracing Normal sinus rhythm Normal ECG When compared with ECG of 13-AUG-2023 23:13, Nonspecific T wave abnormality, improved in Anterolateral leads Referred By: Amber Arnold Electronically Signed By:MARIBEL CHAMBERS
--- NOTE | 2024-03-30 12:58 | ED.GENADULT ---
HPI - General Adult General Chief complaint: Extremity Problem Stated complaint: swollen legs Time Seen by Provider: 03/30/24 12:48 Source: patient and family Mode of arrival: ambulatory Limitations: no limitations History of Present Illness HPI narrative: This is a 73 years old patient presented to the emergency department with a chief complaint of lower extremity edema bilaterally which is ongoing for about a month also she is complaining of intermittent chest pain which usually lasts few seconds ongoing for the last 3 days. Patient has some shortness of breath. Patient denies history of hypertension. Onset (ago): month(s) (1) Location: lower extremity Radiation: non-radiation Severity: moderate Pain Consistency: constant Relieving factors: none Exacerbating factors: none Associated symptoms: denies other symptoms Related Data Home Medications ?Medication ?Instructions ?Recorded ?Confirmed pantoprazole 40 mg tablet,delayed 40 mg PO BID@0630,1630 08/14/23 01/14/24 release brimonidine 0.2 % eye drops drp ophthalmic (eye) 02/15/24 docusate sodium 100 mg capsule 100 mg PO BEDTIME 02/15/24 latanoprost 0.005 % eye drops drp ophthalmic (eye) 02/15/24 Previous Rx's ?Medication ?Instructions ?Recorded nebulizers (Altera Nebulizer #1 ea 06/29/20 System) blood pressure monitor (Blood #1 ea 11/01/22 Pressure Kit) lancets 33 gauge #100 ea 05/08/23 adult pull ups #180 ea 05/09/23 aspirin 81 mg tablet,delayed 81 mg PO DAILY 90 days #90 tabs 06/11/23 release blood sugar diagnostic (OneTouch #50 ea 06/25/23 Verio test strips) ferrous sulfate 325 mg (65 mg 325 mg PO BID #60 tabs 09/12/23 iron) tablet ezetimibe 10 mg tablet (Zetia) 10 mg PO DAILY #90 tabs 10/12/23 fluticasone 250 mcg-salmeterol 50 1 ea PO BID #60 ea 10/30/23 mcg/dose blistr powdr for inhalation (Jeredxela Inhub) tizanidine 4 mg capsule 4 mg PO BEDTIME PRN muscle 11/27/23 spasticity #30 caps amlodipine 5 mg tablet 5 mg PO DAILY #30 tabs 12/01/23 insulin glargine 100 unit/mL (3 10 unit (0.1 mL) subcut QPM #3 mL 12/01/23 mL) subcutaneous pen (Basaglar KwikPen U-100 Insulin) rosuvastatin 20 mg tablet 20 mg PO DAILY #30 tabs 12/01/23 nitrofurantoin 100 mg PO Q12H 7 days #14 caps 12/07/23 monohydrate/macrocrystals 100 mg capsule (Macrobid) metformin 500 mg tablet 1,000 mg (2 x 500 mg) PO BID #120 12/31/23 tabs metoprolol tartrate 100 mg tablet 100 mg PO BID #180 tabs 01/16/24 blood-glucose sensor (Dexcom G7 #3 ea 01/24/24 Sensor device) insulin lispro 100 unit/mL 8 unit (0.08 mL) subcut TID #15 mL 01/24/24 subcutaneous pen (Humalog KwikPen (U-100) Insulin) tirzepatide 5 mg/0.5 mL 5 mg (0.5 mL) subcut QWEEK #2 mL 01/24/24 subcutaneous pen injector (Tunde) sennosides 8.6 mg tablet (Natural 17.2 mg (2 x 8.6 mg) PO BEDTIME 02/15/24 Senna Laxative) constipation #60 tabs clopidogrel 75 mg tablet (Plavix) 75 mg PO DAILY #30 tabs 02/19/24 furosemide 20 mg tablet 20 mg PO DAILY #30 tabs 02/19/24 losartan 50 mg tablet 50 mg PO DAILY #30 tabs 02/19/24 cholecalciferol (vitamin D3) 50 50 mcg PO DAILY #28 caps 03/18/24 mcg (2,000 unit) capsule (Vitamin D3) furosemide 20 mg tablet (Lasix) 20 mg PO DAILY #7 tabs 03/30/24 Allergies Allergy/AdvReac Type Severity Reaction Status Date / Time aspirin [Aspirin] Allergy Mild Abdominal Verified 03/30/24 12:43 Pain Penicillins Allergy Mild NAUSEA/STOMACH Verified 03/30/24 12:43 PAIN hydrochlorothiazide Allergy Unknown hypokalemia Verified 03/30/24 12:43 lisinopril Allergy Unknown ? swelling Verified 03/30/24 12:43 Ljeebft-GAW-OeA Reductase Allergy Unknown Muscle Verified 03/30/24 12:43 Inhibitor cramps ibuprofen [From Motrin] AdvReac Unknown Abdominal Verified 03/30/24 12:43 Pain Review of Systems ENT: Reports system reviewed and no additional complaints, except as documented Cardiovascular: Cardiovascular: Reports no additional cardiovascular complaints Respiratory: Respiratory: Reports no additional respiratory complaints [facility] Past Medical History Attestation statement: The following information was validated with the patient. Medical History Pulmonary nodules Hiatal hernia Coronary artery disease Hypercholesterolemia Orthopnea Gastroparesis Headache Lower extremity edema Urinary frequency Right shoulder pain Constipation Abdominal bloating Shoulder pain, right Hip pain, left Nasal congestion Chest pain NSTEMI (non-ST elevated myocardial infarction) Fall HLD (hyperlipidemia) Colon cancer screening Pleural effusion, right Nocturia more than twice per night Glaucoma Cataract of left eye Renal cyst Preop exam for internal medicine On beta kamryn at home Vitamin D deficiency Osteoporosis Restless leg syndrome Type 2 diabetes mellitus with diabetic polyneuropathy Tubal ligation evaluation Adrenal adenoma Pulmonary nodule Fracture of toe of left foot Positive MAGGIE (antinuclear antibody) Osteoarthritis of both knees Osteopenia Ulnar neuropathy Asthma GERD (gastroesophageal reflux disease) Obesity (BMI 30-39.9) Surgical History Hx of right cataract extraction History of esophagogastroduodenoscopy (EGD) Hx of colonoscopy History of breast biopsy History of tubal ligation History of laparoscopic cholecystectomy Family History Family History Mother HTN (hypertension) Diabetes Brother Lung cancer Sister Cancer, colon Daughter Uterine cancer Father Prostate cancer Social History Social History Household Members: Spouse Household Members Other:: Granddaughter is CHLORINE CELL TENDER lives upstairs Housing: Other Housing Other:: m2 family house Are you a primary child caregiver private home to a significant other at home: No Do you presently have visiting nurse or other home services: Yes ([employer] every day) Alcohol intake: never Patient Tobacco Use Status: Former Tobacco user Tobacco use type: Cigarette Smoked in Last 30 Days: No e-Cigarette/Vaping Use: Never Used Second Hand Smoke Exposure: No Use of substances other than those prescribed or required for medical reasons: No Advance Directives: No Advance Directives Information Provided: No Do you have a plan to hurt others: No Plan service: No Current occupational status: retired and disabled Cognitive needs: No Hearing needs: No Vision needs: Yes (glasses) Physical Exam ED Vital Signs: Vital Signs - 24 hr 03/30/24 12:39 03/30/24 14:20 03/30/24 15:16 Temperature 97.8 F 97.8 F Pulse Rate 77 75 75 Respiratory Rate 18 16 16 Blood Pressure 144/69 H 138/67 138/67 Pulse Oximetry 97 99 99 Oxygen Delivery Method Room Air Room Air Room Air BMI result Body Mass Index 31.9 Const General: cooperative Nutritional Appearance: average body habitus Orientation/consciousness: patient oriented x3 Limitations: no limitations Eyes General: appearance normal, both eyes and all related structures Alignment and Position: alignment normal Neck Neck: Yes normal visual inspection Chest Chest palpation & inspection: normal inspection of the chest Resp Effort & Inspection: normal respiratory effort Auscultation: clear to auscultation bilaterally Cardio Jugular venous distension: no JVD Rate: regular rate Rhythm: regular rhythm GI Inspection: Yes normal to inspection Palpation (GI): Soft to palpation, not firm and nontender Percussion: Yes normal to percussion Auscultation: normal bowel sounds Skin General skin exam: no rashes or lesions noted Rashes: no rashes Neuro General: patient oriented x3 Course Reevaluation(s) Reevaluation #1: Her workup is essentially negative ultrasound shows no DVT labs okay including a high sensitive troponin, at this point I think the patient can be discharged home she has an appointment tomorrow with the PCP, I will give her 7 days of Lasix 20 mg. Time: 15:04 Reevaluation #2: Also to be noted the patient is on amlodipine which could give also swelling of the legs patient will see the primary care physician tomorrow discussed with him in the possibility of changing the amlodipine Time: 15:09 Medical Decision Making Medical Decision Making MDM Narrative: Patient presented with lower extremity edema will obtain labs, also presented with intermittent chest pain we will obtain EKG I sensitive troponin Differential Diagnosis Differential Diagnoses: The differential diagnosis associated with the presentation includes Edema/DVT Admission/Observation Consideration of admission/observation: Escalation of care including admission/observation considered Lab Data [facility] Lab Attestation statement: I reviewed the patient's lab results. 03/30/24 12:56 03/30/24 12:56 Labs: Lab Results 03/30/24 Range/Units 12:56 WBC 6.3 (4.8-10.8) X10*3/uL RBC 3.52 L (4.20-5.50) X10*6/uL Hgb 11.2 L (12.0-16.0) g/dl Hct 33.9 L (37.0-47.0) % MCV 96.3 (80.0-98.0) fL MCH 31.8 (27.0-33.0) pg MCHC 33.0 (31.0-35.0) g/dl RDW 14.0 (11.0-16.0) % Plt Count 241 (160-400) X10*3/uL MPV 10.2 (9.4-12.3) fL Immature Gran % (Auto) 0.3 (0.0-0.4) % Neut % (Auto) 58.6 (45-73) % Lymph % (Auto) 23.5 (20-40) % [place] % (Auto) 12.1 H (2-11) % Eos % (Auto) 4.4 H (0-4) % Baso % (Auto) 1.1 (0-2) % Lymph # (Auto) 1.5 (1.2-4.9) X10*3/uL [place] # (Auto) 0.8 (0.1-1.2) X10*3/uL Eos # (Auto) 0.3 (0.0-0.4) X10*3/uL Baso # (Auto) 0.1 (0.0-0.2) X10*3/uL Abs Immat Gran (auto) 0.02 (0.00-0.03) X10*3/uL Absolute Neuts (auto) 3.7 (2.0-8.3) x10*3/uL Absolute Nucleated RBC 0.000 (0.0-0.012) X10*3/uL Nucleated RBC % (auto) 0.0 (0.0-0.2) /100WBC PT 11.8 (11.1-13.3) SEC INR 1.0 (0.9-1.1) Sodium 140 (135-145) mmol/L Potassium 4.0 (3.3-5.1) mmol/L Chloride 107 (96-108) mmol/L Carbon Dioxide 25 (22-29) mmol/L Anion Gap 12 (12-20) BUN 8 L (9-16) mg/dL Creatinine 0.72 (0.5-1.4) mg/dL Estim Creat Clear Calc 65.7 Estimated GFR > 60 Random Glucose 171 H (60-115) mg/dL Calcium 9.2 (8.4-10.2) mg/dL Total Bilirubin 0.5 (0.0-1.0) mg/dL Direct Bilirubin 0.2 (0.0-0.5) mg/dL AST 18 (5-31) U/L ALT 16 (0-31) U/L Alkaline Phosphatase 71 (39-117) U/L Troponin I High Sens 4.1 (<3.5-17.0) ng/L B-Natriuretic Peptide 114 H (<100) pg/mL Total Protein 6.5 (6.5-8.0) g/dL Albumin 3.8 (3.5-5.0) g/dL Independent Interpretation I performed an independent interpretation of an: EKG Interpretation: Normal sinus rhythm rate [address]-T changes Independent Historian daughter Chronic Conditions Patient?s care impacted by: Hypertension Discharge Plan Discharge Clinical Impression: Edema of both lower legs Patient Disposition: Home, Self-Care Instructions: Leg Edema (ED) Additional Instructions: Follow-up with your primary care physician tomorrow as scheduled return to emergency room if worse. We send 7 day supply of Lasix (water pill). You taking also Norvasc (amlodipine) which could give you swelling of the legs told to your primary care physician about this. Prescriptions: New furosemide [Lasix] 20 mg tablet 20 mg PO DAILY Qty: 7 0RF No Action (DME) lancets 33 gauge misc See Rx Instructions .ROUTE .MEDSUPPLY Qty: 100 11RF Rx Instructions: As directed twice a day (DME) adult pull ups LARGE See Rx Instructions .Route .MEDSUPPLY Qty: 180 0RF Rx Instructions: As directed aspirin 81 mg tablet,delayed release (DR/EC) 81 mg PO DAILY 90 Days Qty: 90 3RF (DME) OneTouch Verio test strips Strip See Rx Instructions .ROUTE .MEDSUPPLY Qty: 50 11RF Rx Instructions: As directed twice a day, fasting am and at bedtime ezetimibe [Zetia] 10 mg tablet 10 mg PO DAILY Qty: 90 0RF fluticasone propion-salmeterol [Wixela Inhub] 250-50 mcg/dose blister with device 1 ea PO BID Qty: 60 0RF tizanidine 4 mg capsule 4 mg PO BEDTIME PRN (Reason: muscle spasticity) Qty: 30 5RF insulin glargine [Basaglar KwikPen U-100 Insulin] 100 unit/mL (3 mL) insulin pen 10 unit subcut QPM Qty: 3 5RF rosuvastatin 20 mg tablet 20 mg PO DAILY Qty: 30 3RF amlodipine 5 mg tablet 5 mg PO DAILY Qty: 30 3RF nitrofurantoin monohyd/m-cryst [Macrobid] 100 mg capsule 100 mg PO Q12H 7 Days Qty: 14 0RF Rx Instructions: must administer with a meal/food metformin 500 mg tablet 1,000 mg PO BID Qty: 120 5RF metoprolol tartrate 100 mg tablet 100 mg PO BID Qty: 180 1RF losartan 50 mg tablet 50 mg PO DAILY Qty: 30 1RF clopidogrel [Plavix] 75 mg tablet 75 mg PO DAILY Qty: 30 1RF furosemide 20 mg tablet 20 mg PO DAILY Qty: 30 3RF cholecalciferol (vitamin D3) [Vitamin D3] 50 mcg (2,000 unit) capsule 50 mcg PO DAILY Qty: 28 2RF pantoprazole 40 mg tablet,delayed release (DR/EC) 40 mg PO BID@0630,1630 (DME) Altera Nebulizer System Mis See Rx Instructions .ROUTE .MEDSUPPLY Qty: 1 0RF Rx Instructions: As directed updraft Q 4 hours prn with albuterol (DME) blood pressure monitor [Blood Pressure Kit] Kit See Rx Instructions .ROUTE .MEDSUPPLY Qty: 1 0RF Rx Instructions: As directed ferrous sulfate 325 mg (65 mg iron) tablet 325 mg PO BID Qty: 60 4RF insulin lispro [Humalog KwikPen Insulin] 100 unit/mL insulin pen 8 unit subcut TID Qty: 15 5RF (DME) Dexcom G7 Sensor Device See Rx Instructions .Route Qty: 3 4RF Rx Instructions: As directed change every 10 days Mounjaro 5 mg/0.5 mL pen injector 5 mg subcut QWEEK Qty: 2 4RF latanoprost 0.005 % drops ophthalmic (eye) brimonidine 0.2 % drops ophthalmic (eye) docusate sodium 100 mg capsule 100 mg PO BEDTIME sennosides [Natural Senna Laxative] 8.6 mg tablet 17.2 mg PO BEDTIME Qty: 60 3RF Referrals: Po,Junior Galarza MD [Primary Care Provider] - 1 day Interventions: ED Discharge Assessment Last Done: 03/30/24 15:16 Discharge Date/Time: 03/30/24 15:16 Print Language: Korean
[2024-03-30 13:01] LABS: MANUAL DIFF FLAG NO
--- NOTE | 2024-03-30 13:03 | PC.NURSE ---
a&ox4. vss and up to date. 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 pt presents to the ED from home d/t bilateral leg swelling x months and months. 2+ pitting edema noted in LE bilaterally. pt verbalizes she attempted to get appt w/ PCP but was unable to do so. pt's daughter (who is bedside) then told this quality analyst/technical writer that she warranted pt to come in because she was having nonradiating right sided chest pain and sob x a few days. pt able to speak in full clear sentences w/o difficulty. no sob/wob noted. respirations even/unlabored. 20gIV placed in the left AC - labs obtained/sent to lab. ekg performed. pt waiting for imaging to be completed. resting comfortably in no apparent distress. daughter bedside for support. plan of care ongoing. call richey placed within reach.
[2024-03-30 13:06] LABS: Basophils Absolute Auto 0.1 X10*3/uL (0.0-0.2); Basophils Percent Auto 1.1 % (0-2); Eosinophils Absolute Auto 0.3 X10*3/uL (0.0-0.4); Eosinophils Percent Auto 4.4 % (0-4); Hematocrit 33.9 % (37.0-47.0); Hemoglobin 11.2 g/dl (12.0-16.0); Imm Gran Abs Auto 0.02 X10*3/uL (0.00-0.03); Imm Gran Pct Auto 0.3 % (0.0-0.4); Lymphocytes Absolute Auto 1.5 X10*3/uL (1.2-4.9); Lymphocytes Percent Auto 23.5 % (20-40); Mean Corpuscular Hemoglobin 31.8 pg (27.0-33.0); Mean Corpuscular Volume 96.3 fL (80.0-98.0); Mean Platelet Volume 10.2 fL (9.4-12.3); Monocytes Absolute Auto 0.8 X10*3/uL (0.1-1.2); Monocytes Percent Auto 12.1 % (2-11); Neutrophils Absolute Auto 3.7 x10*3/uL (2.0-8.3); Neutrophils Percent Auto 58.6 % (45-73); Platelet Count 241 X10*3/uL (160-400); Red Blood Count 3.52 X10*6/uL (4.20-5.50); White Blood Count 6.3 X10*3/uL (4.8-10.8)
--- NOTE | 2024-03-30 13:13 | PC.NURSE ---
ultrasound being completed at this time.
[2024-03-30 13:15] LABS: Prothrombin Time 11.8 SEC (11.1-13.3)
[2024-03-30 13:22] LABS: Alanine Aminotransferase 16 U/L (0-31); Albumin Level 3.8 g/dL (3.5-5.0); Alkaline Phosphatase 71 U/L (39-117); Anion Gap 12 (12-20); Aspartate Amino Transferase 18 U/L (5-31); Bilirubin Direct 0.2 mg/dL (0.0-0.5); Bilirubin Total 0.5 mg/dL (0.0-1.0); Blood Urea Nitrogen 8 mg/dL (9-16); Calcium 9.2 mg/dL (8.4-10.2); Carbon Dioxide 25 mmol/L (22-29); Chloride 107 mmol/L (96-108); Creatinine Clr Calc Pharmacy 65.7; Estimated Glomerular Filt Rate > 60; Glucose Random 171 mg/dL (60-115); Sodium 140 mmol/L (135-145); Total Protein 6.5 g/dL (6.5-8.0)
[2024-03-30 13:27] LABS: B Type Natriuretic Peptide 114 pg/mL (<100)
[2024-03-30 13:28] LABS: Troponin-I High Sensitivity 4.1 ng/L (<3.5-17.0)
[2024-03-30 14:20] VITALS: BP 138/67; PULSE 75; RESP 16; TEMP 36.6; O2SAT 99
[2024-03-30 15:16] VITALS: BP 138/67; PULSE 75; RESP 16; TEMP 36.6; O2SAT 99
== END 2024-03-30 15:16 | disposition home or self-care (01) ==
PROVIDERS: Nurse Practitioner Family; Emergency Provider Emergency Medicine; PCP Internal Medicine
DX: R60.0 Localized edema (principal); R06.02 Shortness of breath; Z79.899 Other long term (current) drug therapy
CPT/HCPCS: 36415; 71046; 80048; 80076; 83880; 84484; 85025; 85610; 93005; 93970; 99284; 99285

== ENCOUNTER → 2024-03-30 12:43 | Outpatient (BNV) | payer OTHER, SELFPAY | PROVIDERS: Emergency Provider Emergency Medicine; PCP Internal Medicine; Visit Provider Internal Medicine | DX: R06.02 Shortness of breath (principal) | CPT/HCPCS: 93010 ==

== ENCOUNTER 2024-03-31 09:40 | Outpatient (AMB) | payer OTHER, SELFPAY ==
[2024-03-31 09:42] VITALS: BP 130/72; PULSE 76; O2SAT 97; BMI 31.3
--- NOTE | 2024-03-31 09:42 | A.OFFPC_ITS ---
Vital Signs 03/31/24 09:42 Height 5 ft 2 in Weight 171 lb 0.8 oz BMI 31.3 BP 130/72 Blood Pressure Location Lt brachial Position Sitting Pulse 76 Pulse Source Pulse Oximeter Pulse Oximetry (%) 97 Oxygen Delivery Method Room Air Intake Visit Reasons: DM Intake Note: Patient is here to follow up on [symptoms]. Cargo Mate Required: No Allergies aspirin [Aspirin] Allergy (Mild, Verified 03/31/24 09:43) Abdominal Pain Penicillins Allergy (Mild, Verified 03/31/24 09:43) NAUSEA/STOMACH PAIN hydrochlorothiazide Allergy (Unknown, Verified 03/31/24 09:43) hypokalemia lisinopril Allergy (Unknown, Verified 03/31/24 09:43) ? swelling [id number] Reductase Inhibitor Allergy (Unknown, Verified 03/31/24 09:43) Muscle cramps amlodipine Adverse Reaction (Intermediate, Unverified 03/31/24 10:20) leg swelling ibuprofen [From Motrin] Adverse Reaction (Unknown, Verified 03/31/24 09:43) Abdominal Pain Tobacco use date assessed: 12/06/23 Fall risk assessment: No Falls in past year Last assessed Fall Risk: 03/31/24 Dental Screening Dental Screen Date: 12/06/23 HPI DM HPI Details 73-year-old obese female with diabetes m ellitus hypertension coronary artery disease hypercholesterolemia anemia asthma coming in for follow-up. Last seen in November 2023. Patient's colonoscopy is due because of tubular adenoma in June 2018 mammogram is due. Review of the notes in 09/29/2023 ER visit for leg swelling with intermittent chest pain and shortness of breath negative DVT negative troponin concern of amlodipine patient was given Lasix.. Patient was also seen in March 15 2024 patient is up-to-date with eye exam having history of glaucoma. Patient has seen gastroenterology also in 03/29/2024. Placed on PPI advised senna to help with the bowel movement on Plavix presently and not able to stop until May. Patient also follows up with Pulmonary for the asthma and pulmonary nodule on Wixela twice a day advised to take Wixela once a day only. Pulmonary nodules have been stable with a CT scan advised magnesium. Patient has also seen endocrinology Jan 24 2024 for the adrenal adenoma no further imaging needed previous workup non secretory.. Did see Hematology- Oncology note also in 01/14/2024 iron deficiency anemia on iron infusions. PAitent follow up with cardiology was sent there for risk stratification for colonoscopy patient has a drug-eluting stent May 2023 uninterrupted Plavix for 1 year. Postpone colonoscopy until May 2024. [facility] Medical History (Updated 03/31/24 @ 10:13 by Junior Zayas MD) Pulmonary nodules Hiatal hernia Coronary artery disease Hypercholesterolemia Orthopnea Gastroparesis Headache Lower extremity edema Urinary frequency Right shoulder pain Constipation Abdominal bloating Shoulder pain, right Hip pain, left Nasal congestion Chest pain NSTEMI (non-ST elevated myocardial infarction) Fall HLD (hyperlipidemia) Colon cancer screening Pleural effusion, right Nocturia more than twice per night Glaucoma Cataract of left eye Renal cyst Preop exam for internal medicine On beta kamryn at home Vitamin D deficiency Osteoporosis Restless leg syndrome Type 2 diabetes mellitus with diabetic polyneuropathy Tubal ligation evaluation Adrenal adenoma Pulmonary nodule Fracture of toe of left foot Positive MAGGIE (antinuclear antibody) Osteoarthritis of both knees Osteopenia Ulnar neuropathy Asthma GERD (gastroesophageal reflux disease) Obesity (BMI 30-39.9) Surgical History Hx of right cataract extraction History of esophagogastroduodenoscopy (EGD) Hx of colonoscopy History of breast biopsy History of tubal ligation History of laparoscopic cholecystectomy Family History Mother HTN (hypertension) Diabetes Brother Lung cancer Sister Cancer, colon Daughter Uterine cancer Father Prostate cancer Social History Household Members: Spouse Household Members Other:: Granddaughter is VALVE REPAIRER RECLAMATION lives upstairs Housing: Other Housing Other:: m2 family house Are you a primary vision care associate to a significant other at home: No Do you presently have visiting nurse or other home services: Yes (VALVE REPAIRER RECLAMATION every day) Alcohol intake: never Patient Tobacco Use Status: Former Tobacco user Tobacco use type: Cigarette e-Cigarette/Vaping Use: Never Used Second Hand Smoke Exposure: No service: No Current occupational status: retired and disabled Cognitive needs: No Hearing needs: No Vision needs: Yes (glasses) Questionnaire Thrive Questionnaire Date Thrive assessed: 12/06/23 AUDIT C Alcohol Use Questionnaire (AUDIT-C) 1. How often do you have a drink containing alcohol?: Never 3. How often do you have six or more drinks on one occasion?: Never Total Score: 0 QUYNH-7 AMB Questionnaire QUYNH-7 Date QUYNH - 7 assessed: 12/06/23 Source: Developed by Drs. Jhon Cedeño, Cara [place], Isaias Michael and colleagues, with an educational joey from [employer]. Physical exam (Primary Care) Vital Signs: Last Vital Signs Pulse 76 03/31/24 09:42 BP 130/72 03/31/24 09:42 Pulse Ox 97 03/31/24 09:42 Oxygen Delivery Method Room Air 03/31/24 09:42 BMI result Body Mass Index 31.3 Tobacco/Smoking Status: Tobacco use Status Tobacco use date assessed 12/06/23 03/31/24 09:43 Patient Tobacco Use Status Former Tobacco user 03/31/24 09:43 Tobacco use type Cigarette 03/31/24 09:43 e-Cigarette/Vaping Use Never Used 03/31/24 09:43 Thrive Assessment: Date of Thrive Assessment Date Thrive assessed 12/06/23 03/31/24 09:43 Const General: alert; No acute distress Eyes Conjunctivae: conjunctivae normal Resp Auscultation: clear to auscultation bilaterally Cardio Rate: regular rate Rhythm: regular rhythm GI Inspection: Yes normal to inspection Extrem General: Yes normal to inspection and No edema Assessment and Plan Assessment & Plan (1) Coronary artery disease: Comment: echo normal LV 60-65% June 2019, May 2023 distal LAD drug-eluting stent Code(s): I25.10 - Atherosclerotic heart disease of [place] coronary artery without angina pectoris Qualifiers: Coronary Disease-Associated Artery/Lesion type: [place] artery [place] vs. transplanted heart: [place] heart Associated angina: without angina Qualified Code(s): I25.10 - Atherosclerotic heart disease of [place] coronary artery without angina pectoris Plan: Control the cholesterol, weight, blood pressure, diabetes continue with aspirin and Plavix till May 2024 (2) Type 2 diabetes mellitus with hyperglycemia: Comment: / Charlie Code(s): E11.65 - Type 2 diabetes mellitus with hyperglycemia Qualifiers: Diabetes mellitus laborer marine terminal insulin use: unspecified laborer marine terminal insulin use status Qualified Code(s): E11.65 - Type 2 diabetes mellitus with hyperglycemia Plan: Decrease the amount of carbohydrate intake, pasta, bread, rice and potatoes are all sugar and that is aside from all the sweet stuff, remember that fruits are good but they are Sweet also. Hemoglobin A1c goal of less than 7.0 on Basaglar and Humalog and metformin and Mounjaro (3) Obesity (BMI 30-39.9): Code(s): E66.9 - Obesity, unspecified Plan: Diet and exercise (4) Asthma: Code(s): J45.909 - Unspecified asthma, uncomplicated Qualifiers: Asthma severity: mild Asthma persistence: intermittent Asthma complication type: uncomplicated Qualified Code(s): J45.20 - Mild intermittent asthma, uncomplicated Plan: Continue with the albuterol inhaler and Wixela and advised to use the Wixela only once a day (5) Hypertension: Code(s): I10 - Essential (primary) hypertension Plan: Continue with blood pressure medication. Decrease salt intake and exercise patient has been placed on amlodipine 5 mg once a day losartan 50 mg once a day metoprolol 100 mg twice a day but concerns about leg swelling. (6) Hypercholesterolemia: Comment: Patient cannot tolerate statins Code(s): E78.00 - Pure hypercholesterolemia, unspecified Plan: Avoid fried foods, chicken skin, eggs, butter margarine, pastries and meat. Be it pork or beef they have a lot of cholesterol on rosuvastatin 20 mg once a day and Zetia 10 mg once a (7) Pulmonary nodule: Comment: July 2018 2 years December 2023 stable Code(s): R91.1 - Solitary pulmonary nodule Plan: Stable pulmonary nodule no more follow-up. Medications: Changed From losartan 50 mg PO DAILY 30 tabs 1RF I10 - Essential (primary) hypertension To losartan 100 mg PO DAILY 30 tabs 3RF I10 - Essential (primary) hypertension Discontinued amlodipine Discontinued Reason: Patient Refused 5 mg PO DAILY 30 tabs 3RF I10 - Essential (primary) hypertension Coding Level of Care Code Est Pt Level 4 (76994) Diagnoses Coronary artery disease involving [place] coronary artery of [place] heart without angina pectoris I25.10 Coronary Disease-Associated Artery/Lesion type: [place] artery [place] vs. transplanted heart: [place] heart Associated angina: without angina Type 2 diabetes mellitus with hyperglycemia, unspecified whether laborer marine terminal insulin use E11.65 Diabetes mellitus skilled nursing insulin use: unspecified skilled nursing insulin use status Obesity (BMI 30-39.9) E66.9 Mild intermittent asthma without complication J45.20 Asthma severity: mild Asthma persistence: intermittent Asthma complication type: uncomplicated Hypertension I10 Hypercholesterolemia E78.00 Pulmonary nodule R91.1
== END 2024-03-31 10:34 | disposition home or self-care (01) ==
PROVIDERS: PCP Internal Medicine; Visit Provider Internal Medicine
DX: I25.10 Atherosclerotic heart disease of native coronary artery without angina pectoris (principal); E11.65 Type 2 diabetes mellitus with hyperglycemia; J45.20 Mild intermittent asthma, uncomplicated; I10 Essential (primary) hypertension; E78.00 Pure hypercholesterolemia, unspecified; R91.1 Solitary pulmonary nodule
CPT/HCPCS: 99214

== ENCOUNTER 2024-05-20 10:33 | Outpatient (AMB) | payer OTHER, SELFPAY ==
--- NOTE | 2024-05-20 10:43 | A.OFFVIS_ITS ---
Vital Signs 05/20/24 10:46 Height 5 ft 2 in Weight 170 lb 6.677 oz BMI 31.2 BP 104/68 Blood Pressure Location Rt brachial Position Sitting Pulse 85 Pulse Source Pulse Oximeter Intake Visit Reasons: T2DM/CONFIRMED Intake Note: Patient present today to follow up on Type 2 Diabetes Mellitus. Last Diabetic Eye exam: approx 2 months Last Podiatry Visit: Does not see a Wood Heel Attacher Random Glucose: 167 mg/dl HgA1C: 7.1% 05/20/2024 Referral And Information Aide Required: No Referral And Information Aide Services: Referral And Information Aide Offered & Declined Accompanied by: Daughter Allergies aspirin [Aspirin] Allergy (Mild, Verified 05/20/24 10:47) Abdominal Pain Penicillins Allergy (Mild, Verified 05/20/24 10:47) NAUSEA/STOMACH PAIN hydrochlorothiazide Allergy (Unknown, Verified 05/20/24 10:47) hypokalemia lisinopril Allergy (Unknown, Verified 05/20/24 10:47) ? swelling [id number] Reductase Inhibitor Allergy (Unknown, Verified 05/20/24 10:47) Muscle cramps amlodipine Adverse Reaction (Intermediate, Verified 05/20/24 10:47) leg swelling ibuprofen [From Motrin] Adverse Reaction (Unknown, Verified 05/20/24 10:47) Abdominal Pain HPI Comments Details: This is a 74-year-old female with a past medical history of coronary artery disease, type 2 diabetes, hyperlipidemia, osteopenia, adrenal adenoma, osteoporosis and hypertension presenting for diabetic management. She was last seen in the endocrinology department by Dr. Ro on 01/24/2024. Her daughter, Karen, provides history and interpretation. They declined video dealmaker. I reviewed today's CGM download: CGM in use: 79.8% of the time GMI: 7.6% Average glucose: 180 Standard deviation 47 mg/dl Blood glucose in target range (70-180) 57% of the time Blood glucose high (181-250) 34% of the time Blood glucose very high (>250) 9 % of the time Blood glucose low (55-69) 0% of the time Blood glucose very low (less than 55) 0% of the time BG trend is to increase between 6pm and 9pm. Hemoglobin a1c 7.1%. POC 167. Current medication regimen: Insulin glargine 18 units at bedtime, Humalog 8 units before breakfast and lunch, Mounjaro 5 mg weekly, metformin 1000 mg twice daily. Compliance issues: She is not taking Humalog. Karen recalls having the conversation about it, but they never picked it up from the pharmacy. Diet: Breakfast-eggs toast Lunch- small sandwich Dinner- rice, beans, meat Snacks/desserts: not really, occasionally she will have a cup of fruit. No juice or soda Drinks water throughout the day and coffee with splenda in the morning. Hypoglycemia symptoms: lowest 53 at night and feels sweaty, shaky, dizzy, improves after drinking OJ. Patient endorses low blood sugar 3 times per week after midnight. She is usually asleep, and her CGM alerts her. Hyperglycemia symptoms: none Eye exam: a couple months ago Microvascular complications: neuropathy Macrovascular complications: CAD Hypertension: treated with losartan 100 mg, metoprolol 100 mg twice a day, Lasix 20 mg. Hyperlipidemia: treated with Rosuvastatin 20 mg and Zetia 10 mg. LDL at goal <100. ROS: Constitutional: No unexplained weight loss, fever, chills, fatigue. Eyes: No vision change Gastrointestinal: No anorexia, nausea, vomiting or diarrhea. No abdominal pain Neurologic: No syncope Physical exam: Constitutional: Alert, in no distress. Neck: Supple, Full range of motion. No lymphadenopathy. No palpable thyroid masses. Respiratory: Clear to auscultation. Cardiovascular: S1 S2 regular. No murmurs. Right foot: Warm and well perfused. No clubbing, cyanosis or edema. DP pulse 2+. No open wounds. Left foot: Warm and well perfused. No clubbing, cyanosis or edema. DP pulse 2+. No open wounds. [facility] Medical History (Updated 05/20/24 @ 11:28 by LEOBARDO Smith) Type 2 diabetes mellitus with hypoglycemia Pulmonary nodules Hiatal hernia Coronary artery disease Hypercholesterolemia Orthopnea Gastroparesis Headache Lower extremity edema Urinary frequency Right shoulder pain Constipation Abdominal bloating Shoulder pain, right Hip pain, left Nasal congestion Chest pain NSTEMI (non-ST elevated myocardial infarction) Fall HLD (hyperlipidemia) Colon cancer screening Pleural effusion, right Nocturia more than twice per night Glaucoma Cataract of left eye Renal cyst Preop exam for internal medicine On beta kamryn at home Vitamin D deficiency Osteoporosis Restless leg syndrome Type 2 diabetes mellitus with diabetic polyneuropathy Tubal ligation evaluation Adrenal adenoma Pulmonary nodule Fracture of toe of left foot Positive MAGGIE (antinuclear antibody) Osteoarthritis of both knees Osteopenia Ulnar neuropathy Asthma GERD (gastroesophageal reflux disease) Obesity (BMI 30-39.9) Surgical History Hx of right cataract extraction History of esophagogastroduodenoscopy (EGD) Hx of colonoscopy History of breast biopsy History of tubal ligation History of laparoscopic cholecystectomy Family History Mother HTN (hypertension) Diabetes Brother Lung cancer Sister Cancer, colon Daughter Uterine cancer Father Prostate cancer Social History Household Members: Spouse Household Members Other:: Granddaughter is EXCEPTIONAL NEEDS TEACHER lives upstairs Housing: Other Housing Other:: m2 family house Are you a primary reproductive healthcare assistant to a significant other at home: No Do you presently have visiting nurse or other home services: Yes (EXCEPTIONAL NEEDS TEACHER every day) Alcohol intake: never Patient Tobacco Use Status: Former Tobacco user Tobacco use type: Cigarette e-Cigarette/Vaping Use: Never Used Second Hand Smoke Exposure: No service: No Current occupational status: retired and disabled Cognitive needs: No Hearing needs: No Vision needs: Yes (glasses) Results AMB Hemoglobin A1c AMB Hemoglobin A1c 7.1 % Last Edit by NGUYEN Powell on 05/20/24 11:03 Results Reviewed Results Reviewed: Laboratory Tests 12/07/23 12/07/23 03/30/24 09:18 09:20 12:56 Creatinine 0.72 Estimated GFR > 60 Hemoglobin A1c % 7.7 H ALT 16 Alkaline Phosphatase 71 Triglycerides 68 Cholesterol 110 LDL Cholesterol, Calc 46 HDL Cholesterol 51 TSH 2.52 Free T4 0.93 Urine Creatinine 73.93 Urine Microalbumin 9.0 Microalb/Creat Ratio 12.1 Assessment & Plan Assessment & Plan (1) Type 2 diabetes mellitus with hypoglycemia: Code(s): E11.649 - Type 2 diabetes mellitus with hypoglycemia without coma Category: Medical Qualifiers: Diabetes mellitus custodial insulin use: with manager intermediate use Diabetes mellitus complication detail: without coma Qualified Code(s): E11.649 - Type 2 diabetes mellitus with hypoglycemia without coma; Z79.4 - terminal clerk (current) use of insulin Plan In summary this is a 74-year-old female with type 2 diabetes on basal bolus insulin, metformin and GLP 1 with known micro and macrovascular complications namely neuropathy and coronary artery disease. She did not begin prandial insulin, and this is deferred at the moment given episodes of hypoglycemia and A1c 7.1% today. Patient will decrease Lantus from 18 to 14 units. Send glucose tablets to pharmacy. Reviewed proper treatment of hypoglycemia and given written information in [place] to the patient. If hypoglycemia persists I will see if insurance will cover [place] or [place] and stop Lantus. Lifestyle modifications reviewed with the patient. Recommended follow up with the international logistics coordinator and dietitian. Continue metformin 1000 mg twice daily. Continue Mounjaro 5 mg once weekly. If nocturnal hypoglycemia resolves we may consider increasing Mounjaro to 7.5 mg once weekly versus addition of prandial insulin to target hyperglycemia during the day if needed. Follow up in 1 month for diabetes/hypoglycemia. Orders: Orders AMB Hemoglobin A1c Today E11.65 - Type 2 diabetes mellitus with hyperglycemia Medications: New insulin glargine (Lantus Solostar U-100 Insulin) 14 units (0.14 mL) subcut .qhs 15 mL 5RF glucose (Dex4 Glucose Quick Dissolve) until symptoms of low blood sugar are controlled 16 grams (4 x 4 gram) PO Q15M PRN 30 tabs 3RF hypoglycemia Discontinued insulin glargine (Basaglar KwikPen U-100 Insulin) Discontinued Reason: Doctor's Order 10 units (0.1 mL) subcut QPM 3 mL 5RF insulin lispro (Humalog KwikPen (U-100) Insulin) Discontinued Reason: Doctor's Order 8 units (0.08 mL) subcut TID 15 mL 5RF Coding Level of Care Code Est Pt Level 4 (32853) Complex EM visit Add On G2211 Diagnoses Type 2 diabetes mellitus with hypoglycemia without coma, with long-term current use of insulin E11.649; Z79.4 Diabetes mellitus manager intermediate insulin use: with manager intermediate use Diabetes mellitus complication detail: without coma
[2024-05-20 10:46] VITALS: BP 104/68; PULSE 85; BMI 31.2
[2024-05-20 10:57] LABS: Glucose, Whole Blood 167 mg/dL (60-115)
== END 2024-05-20 11:23 | disposition home or self-care (01) ==
PROVIDERS: PCP Internal Medicine; Visit Provider Physician Assistant Medical
DX: E11.649 Type 2 diabetes mellitus with hypoglycemia without coma (principal); Z79.4 Long term (current) use of insulin; E11.65 Type 2 diabetes mellitus with hyperglycemia
CPT/HCPCS: 99214; G2211

== ENCOUNTER → 2024-05-20 10:33 | Outpatient (BNVA) | payer OTHER, SELFPAY | PROVIDERS: PCP Internal Medicine; Visit Provider Physician Assistant Medical | DX: E11.649 Type 2 diabetes mellitus with hypoglycemia without coma (principal); E11.65 Type 2 diabetes mellitus with hyperglycemia; Z79.4 Long term (current) use of insulin | CPT/HCPCS: 82947; 83036; 99212 ==

== ENCOUNTER 2024-05-30 09:29 | Outpatient (AMB) | payer OTHER, SELFPAY ==
[2024-05-30 09:33] VITALS: BP 132/68; PULSE 84; BMI 31.0
--- NOTE | 2024-05-30 09:33 | A.OFFVIS_ITS ---
Vital Signs 05/30/24 09:33 Height 5 ft 2 in Weight 169 lb 12.095 oz BMI 31.0 BP 132/68 Blood Pressure Location Lt brachial Position Sitting Pulse 84 Pulse Source Pulse Oximeter Intake Visit Reasons: 5 m follow up Substation Supervisor Services: Substation Supervisor Offered & Declined Accompanied by: Daughter Allergies aspirin [Aspirin] Allergy (Mild, Verified 05/20/24 15:50) Abdominal Pain Penicillins Allergy (Mild, Verified 05/20/24 15:50) NAUSEA/STOMACH PAIN hydrochlorothiazide Allergy (Unknown, Verified 05/20/24 15:50) hypokalemia lisinopril Allergy (Unknown, Verified 05/20/24 15:50) ? swelling Qpucaqf-SOA-JfM Reductase Inhibitor Allergy (Unknown, Verified 05/20/24 15:50) Muscle cramps amlodipine Adverse Reaction (Intermediate, Verified 05/20/24 15:50) leg swelling ibuprofen [From Motrin] Adverse Reaction (Unknown, Verified 05/20/24 15:50) Abdominal Pain Medication List - Last Reconciled 05/30/24 by Nicole Son NP-C [adult pull ups As directed] aspirin 81 mg PO DAILY 90 days blood pressure monitor (Blood Pressure Kit) As directed blood sugar diagnostic (OneTouch Verio test strips) As directed twice a day, fasting am and at bedtime blood-glucose sensor ([employer] G7 Sensor device) As directed change every 10 days brimonidine 0.2% drps ophthalmic (eye) cholecalciferol (vitamin D3) 50 mcg PO DAILY clopidogrel (Plavix) 75 mg PO DAILY ferrous sulfate 325 mg PO BID fluticasone propion-salmeterol 250-50 mcg/dose (Wixela Inhub) 1 ea PO BID furosemide (Lasix) 20 mg PO DAILY insulin glargine (Lantus Solostar U-100 Insulin) 14 units (0.14 mL) subcut .qhs lancets As directed twice a day latanoprost 0.005% drps ophthalmic (eye) losartan 100 mg PO DAILY metformin 1,000 mg (2 x 500 mg) PO BID metoprolol tartrate 100 mg PO BID nebulizers (Altera Nebulizer System) As directed updraft Q 4 hours prn with albuterol pantoprazole 40 mg PO BID rosuvastatin 20 mg PO DAILY sennosides (Natural Senna Laxative) 17.2 mg (2 x 8.6 mg) PO BEDTIME tirzepatide (Mounjaro) 5 mg (0.5 mL) subcut QWEEK tizanidine 4 mg PO BEDTIME PRN HPI HPI 5 m follow up: Details: Roz is a 73-year-old female with past medical history of hypertension, hyperlipidemia, diabetes, obesity, asthma, CAD who presents for follow-up and preop cardiovascular examination for upcoming colonoscopy. Today she reports that she still has some shortness of breath and chest tightness at times when she lays down. She does not notice these symptoms with activities. She does have asthma and will use her inhaler with improvement. No chest discomfort brought on by walking or stairs. No palpitations, lightheadedness, presyncope, syncope, falls. Takes all meds as directed. Daughter present. She is assisting with South [place] translation at their request. [facility] Medical History Type 2 diabetes mellitus with hypoglycemia Pulmonary nodules Hiatal hernia Coronary artery disease Hypercholesterolemia Orthopnea Gastroparesis Headache Lower extremity edema Urinary frequency Right shoulder pain Constipation Abdominal bloating Shoulder pain, right Hip pain, left Nasal congestion Chest pain NSTEMI (non-ST elevated myocardial infarction) Fall HLD (hyperlipidemia) Colon cancer screening Pleural effusion, right Nocturia more than twice per night Glaucoma Cataract of left eye Renal cyst Preop exam for internal medicine On beta kamryn at home Vitamin D deficiency Osteoporosis Restless leg syndrome Type 2 diabetes mellitus with diabetic polyneuropathy Tubal ligation evaluation Adrenal adenoma Pulmonary nodule Fracture of toe of left foot Positive MAGGIE (antinuclear antibody) Osteoarthritis of both knees Osteopenia Ulnar neuropathy Asthma GERD (gastroesophageal reflux disease) Obesity (BMI 30-39.9) Surgical History Hx of right cataract extraction History of esophagogastroduodenoscopy (EGD) Hx of colonoscopy History of breast biopsy History of tubal ligation History of laparoscopic cholecystectomy Family History Mother HTN (hypertension) Diabetes Brother Lung cancer Sister Cancer, colon Daughter Uterine cancer Father Prostate cancer Social History Household Members: Spouse Household Members Other:: Granddaughter is UNIT ASSEMBLER lives upstairs Housing: Other Housing Other:: m2 family house Are you a primary adult daycare coordinator to a significant other at home: No Do you presently have visiting nurse or other home services: Yes (UNIT ASSEMBLER every day) Alcohol intake: never Patient Tobacco Use Status: Former Tobacco user Tobacco use type: Cigarette e-Cigarette/Vaping Use: Never Used Second Hand Smoke Exposure: No service: No Current occupational status: retired and disabled Cognitive needs: No Hearing needs: No Vision needs: Yes (glasses) Review of Systems Const All systems reviewed & are unremarkable except as noted in HPI and below Denies weakness ENT Denies dizziness Card Denies chest pain, Denies chest pain with activity, Denies syncope, Denies rapid heart rate, Denies pedal edema, Denies edema, Denies leg edema, Denies lightheadedness, Denies palpitations, Denies dyspnea, Denies dyspnea on exertion and Denies orthopnea Resp Denies cough, Denies dyspnea and Denies dyspnea on exertion GI Denies hematochezia and Denies change in stool character Musc Denies abnormal gait, Denies muscle cramps, Denies muscle weakness, Denies numbness, Denies radiating pain into limb and Denies tingling Neuro Denies abnormal gait, Denies dizziness, Denies syncope, Denies numbness, Denies tingling and Denies weakness Endo Denies palpitations Physical Exam Vital Signs: BMI result Body Mass Index 31.0 Const General: cooperative, healthy appearing, comfortable and no acute distress Orientation/consciousness: patient oriented x3 Neck Neck: Yes normal visual inspection Resp Effort & Inspection: normal respiratory effort Auscultation: clear to auscultation bilaterally, no crackles, no rales, no rhonchi and no wheezes Cardio Jugular venous distension: no JVD Rate: regular rate Rhythm: regular rhythm Heart sounds: S1 normal heart sound present, S2 normal heart sound present, no murmurs and no rubs Neuro General: patient oriented x3 Extrem General: Yes normal to inspection, No no pedal edema and No calf tenderness Psych Appearance: grossly normal Mental Status: mental status grossly normal Speech and movement: Normal speech and movement present Office Procedures EKG Details: Today, read by me, normal sinus rhythm, no acute ST or T-wave abnormalities, rate 78, QTC 449 millisecond [id number], Complete Assessment & Plan Assessment & Plan (1) Coronary artery disease: Comment: echo normal LV 60-65% June 2019, May 2023 distal LAD drug-eluting stent Code(s): I25.10 - Atherosclerotic heart disease of [place] coronary artery without angina pectoris Category: Medical Qualifiers: Coronary Disease-Associated Artery/Lesion type: [place] artery [place] vs. transplanted heart: [place] heart Associated angina: without angina Qualified Code(s): I25.10 - Atherosclerotic heart disease of [place] coronary artery without angina pectoris Plan: History of NSTEMI 05/2023 when she presented with chest discomfort. She ruled in for ACS. Echocardiogram showed EF 65-70%, apical lateral and mid inferior lateral hypokinetic. Troponin peak 797.4. She was transferred to [facility] and underwent cardiac catheterization showing significant LAD, OM1, ramus stenosis, YVETTE placed to the mid LAD. She had some bleeding issues with Brilinta and was changed over to Plavix. She is currently doing well with no chest discomfort with exertion. She does describe some shortness of breath and chest tightness which occurs mostly at rest, which could be related to her asthma. EKG done today showing normal sinus rhythm, rate 78. Will continue with med management. Continue aspirin indefinitely. She may stop Plavix since it has been over a year since her stent placement. Continue rosuvastatin and Zetia with ideal LDL goal less than 70. Labs done 12/07/2023 showed LDL 46. Continue metoprolol, amlodipine. Blood pressure controlled 132/68. Cardiology follow-up in 6 months, sooner if needed (2) S/P cardiac catheterization: Comment: 05/11/2023 left main normal, mid LAD 90% stenosis, distal LAD 90% stenosis, 1st OM 99% stenosis, small vessel, RCA mild luminal irregularities, ramus severe disease distal segment, small vessel, YVETTE to the mid LAD Code(s): Z98.890 - Other specified postprocedural states Category: Surgical Plan: As above (3) NSTEMI (non-ST elevated myocardial infarction): Comment: May 2023 distal LAD drug-eluting stent Code(s): I21.4 - Non-ST elevation (NSTEMI) myocardial infarction Category: Medical Plan: As above (4) Hypertension: Code(s): I10 - Essential (primary) hypertension Category: Medical Plan: Well controlled at this time. No med changes made. (5) Hypercholesterolemia: Comment: Patient cannot tolerate statins Code(s): E78.00 - Pure hypercholesterolemia, unspecified Category: Medical Plan: [place] LDL goal less than 70. Labs done 12/07/2023 shows LDL 46. Continue Zetia and rosuvastatin. (6) Preop cardiovascular exam: Code(s): Z01.810 - Encounter for preprocedural cardiovascular examination Category: Medical Plan: Preop for colonoscopy. She may proceed with low to intermediate cardiac risk. Aspirin can be held if needed and restart as soon as cleared by surgeon to do so. Call/consult Cardiology if needed. Plan Time spent on chart review, documentation, interview and assessment Orders: Orders CA echo transthoracic complete Today I25.10 - Atherosclerotic heart disease of [place] coronary artery without angina pectoris Medications: Discontinued clopidogrel (Plavix) Discontinued Reason: Doctor's Order 75 mg PO DAILY 30 tabs 1RF Coding Level of Care Code Est Pt Level 4 (33823) Diagnoses Coronary artery disease involving [place] coronary artery of [place] heart without angina pectoris I25.10 Coronary Disease-Associated Artery/Lesion type: [place] artery [place] vs. transplanted heart: [place] heart Associated angina: without angina S/P cardiac catheterization Z98.890 NSTEMI (non-ST elevated myocardial infarction) I21.4 Hypertension I10 Hypercholesterolemia E78.00 Preop cardiovascular exam Z01.810 CPT Codes EKG - CPT: 63250-[id number], Complete ([id number]) Time Spent (min) 28
== END 2024-05-30 10:05 | disposition home or self-care (01) ==
PROVIDERS: PCP Internal Medicine; Visit Provider Nurse Practitioner Family
DX: I25.10 Atherosclerotic heart disease of native coronary artery without angina pectoris (principal); Z98.890 Other specified postprocedural states; I21.4 Non-ST elevation (NSTEMI) myocardial infarction; I10 Essential (primary) hypertension; E78.00 Pure hypercholesterolemia, unspecified; Z01.810 Encounter for preprocedural cardiovascular examination
CPT/HCPCS: 93010; 99214

== ENCOUNTER → 2024-05-30 09:29 | Outpatient (BNVA) | payer OTHER, SELFPAY | PROVIDERS: PCP Internal Medicine; Visit Provider Nurse Practitioner Family | DX: Z01.810 Encounter for preprocedural cardiovascular examination (principal); I25.10 Atherosclerotic heart disease of native coronary artery without angina pectoris; I10 Essential (primary) hypertension; I25.2 Old myocardial infarction; E78.00 Pure hypercholesterolemia, unspecified | CPT/HCPCS: 93005; 99212 ==

== ENCOUNTER 2024-06-25 08:49 | Outpatient (AMB) | payer OTHER, SELFPAY ==
[2024-06-25 08:50] VITALS: BP 130/78; PULSE 82; O2SAT 98; BMI 31.1
--- NOTE | 2024-06-25 08:50 | A.OFFPC_ITS ---
Vital Signs 06/25/24 08:50 Height 5 ft 2 in Weight 170 lb BMI 31.1 BP 130/78 Blood Pressure Location Lt brachial Position Sitting Pulse 82 Pulse Source Pulse Oximeter Pulse Oximetry (%) 98 Oxygen Delivery Method Room Air Intake Visit Reasons: headaches/ dizziness/ high bp Intake Note: pt c/o dizziness, headaches X1week Aeronautical Engineering Professor Required: Yes Aeronautical Engineering Professor Language: Romanian Allergies aspirin [Aspirin] Allergy (Mild, Verified 06/25/24 08:54) Abdominal Pain Penicillins Allergy (Mild, Verified 06/25/24 08:54) NAUSEA/STOMACH PAIN hydrochlorothiazide Allergy (Unknown, Verified 06/25/24 08:54) hypokalemia lisinopril Allergy (Unknown, Verified 06/25/24 08:54) ? swelling Bhxebku-FQD-FxB Reductase Inhibitor Allergy (Unknown, Verified 06/25/24 08:54) Muscle cramps amlodipine Adverse Reaction (Intermediate, Verified 06/25/24 08:54) leg swelling ibuprofen [From Motrin] Adverse Reaction (Unknown, Verified 06/25/24 08:54) Abdominal Pain Medication List - Last Reconciled 06/25/24 by Virgie Ham PA-C [adult pull ups As directed] aspirin 81 mg PO DAILY 90 days blood pressure monitor (Blood Pressure Kit) As directed blood sugar diagnostic (OneTouch Verio test strips) As directed twice a day, fasting am and at bedtime blood-glucose sensor (Dexhandsomexcutive G7 Sensor device) As directed change every 10 days brimonidine 0.2% drps ophthalmic (eye) cholecalciferol (vitamin D3) 50 mcg PO DAILY ferrous sulfate 325 mg PO BID fluticasone propion-salmeterol 250-50 mcg/dose (Wixela Inhub) 1 ea PO BID furosemide (Lasix) 20 mg PO DAILY insulin glargine (Lantus Solostar U-100 Insulin) 14 units (0.14 mL) subcut .qhs lancets As directed twice a day latanoprost 0.005% drps ophthalmic (eye) losartan 100 mg PO DAILY metformin 1,000 mg (2 x 500 mg) PO BID metoprolol tartrate 100 mg PO BID nebulizers (Compierea Nebulizer System) As directed updraft Q 4 hours prn with albuterol pantoprazole 40 mg PO BID rosuvastatin 20 mg PO DAILY sennosides (Natural Senna Laxative) 17.2 mg (2 x 8.6 mg) PO BEDTIME tirzepatide (Mounjaro) 5 mg (0.5 mL) subcut QWEEK tizanidine 4 mg PO BEDTIME PRN Tobacco use date assessed: 12/06/23 Fall risk assessment: No Falls in past year Last assessed Fall Risk: 06/25/24 Dental Screening Dental Screen Date: 12/06/23 HPI headaches/ dizziness/ high bp HPI Details 74-year-old obese female with diabetes m ellitus hypertension coronary artery disease hypercholesterolemia anemia and asthma coming in for acute problem. In review of the notes, patient was seen by Cardiology May 2024 for preop cardiovascular exam may proceed with colonoscopy. Seen by Hematology/Oncology May 2024 advised to undergo EGD with colonoscopy to look for source of iron-deficiency anemia. Seen by endocrinology May 2024 decrease Lantus due to hypoglycemia and follow up in 1 month. nurse research was used for the duration of this visit. Patient states she rolled out of bed 15 days ago and landed on her side denies any head strike and was not evaluated for this. Since this incident she has been intermittent dizzy episodes where she feels like the room is spinning episodes can happen daily sometimes multiple times per day and typically last less than 10 minutes before spontaneously resolving and can happen at any time. She does also complain of headaches which she does have a history of. Denies any chest pain, shortness of breath, nausea, vomiting with the episodes of dizziness or headaches. She has been taking her blood pressures at home which have been normal. The headaches typically resolve with Tylenol. [facility] Medical History (Updated 06/25/24 @ 09:33 by Virgie Ham PA-C) Headache Type 2 diabetes mellitus with hypoglycemia Pulmonary nodules Hiatal hernia Coronary artery disease Hypercholesterolemia Orthopnea Gastroparesis Lower extremity edema Urinary frequency Right shoulder pain Constipation Abdominal bloating Shoulder pain, right Hip pain, left Nasal congestion Chest pain NSTEMI (non-ST elevated myocardial infarction) Fall HLD (hyperlipidemia) Colon cancer screening Pleural effusion, right Nocturia more than twice per night Glaucoma Cataract of left eye Renal cyst Preop exam for internal medicine On beta kamryn at home Vitamin D deficiency Osteoporosis Restless leg syndrome Type 2 diabetes mellitus with diabetic polyneuropathy Tubal ligation evaluation Adrenal adenoma Pulmonary nodule Fracture of toe of left foot Positive MAGGIE (antinuclear antibody) Osteoarthritis of both knees Osteopenia Ulnar neuropathy Asthma GERD (gastroesophageal reflux disease) Obesity (BMI 30-39.9) Surgical History Hx of right cataract extraction History of esophagogastroduodenoscopy (EGD) Hx of colonoscopy History of breast biopsy History of tubal ligation History of laparoscopic cholecystectomy Family History Mother HTN (hypertension) Diabetes Brother Lung cancer Sister Cancer, colon Daughter Uterine cancer Father Prostate cancer Social History Household Members: Spouse Household Members Other:: Granddaughter is SCRAP DEALER lives upstairs Housing: Other Housing Other:: m2 family house Are you a primary wound care technician to a significant other at home: No Do you presently have visiting nurse or other home services: Yes (SCRAP DEALER every day) Alcohol intake: never Patient Tobacco Use Status: Former Tobacco user Tobacco use type: Cigarette e-Cigarette/Vaping Use: Never Used Second Hand Smoke Exposure: No service: No Current occupational status: retired and disabled Cognitive needs: No Hearing needs: No Vision needs: Yes (glasses) Questionnaire Thrive Questionnaire Date Thrive assessed: 12/06/23 Are you currently unemployed and looking for a job?: No AUDIT C Alcohol Use Questionnaire (AUDIT-C) 1. How often do you have a drink containing alcohol?: Never 3. How often do you have six or more drinks on one occasion?: Never Total Score: 0 QUYNH-7 AMB Questionnaire QUYNH-7 Date QUYNH - 7 assessed: 12/06/23 Source: Developed by Drs. Jhon Cedeño, Cara [place], Isaias Michael and colleagues, with an educational joey from [facility]. Review of Systems Const Denies chills, Denies fever(s), Denies frequent falls, Reports headache(s) (Occasional) and Denies weakness Eyes Denies blurry vision and Denies change in vision ENT Reports no additional complaints, Reports dizziness and Reports headache(s) (Occasional) Card Denies chest pain, Denies syncope, Denies irregular heart rhythm, Denies leg edema, Reports lightheadedness, Denies palpitations and Denies dyspnea Resp Denies dyspnea GI Denies nausea and Denies vomiting Reports no additional complaints Musc Details: Back pain since the fall Denies tingling Skin/Breast Reports system reviewed and no additional complaints, except as documented Neuro Reports dizziness, Denies syncope, Denies frequent falls, Reports headache(s) (Occasional), Denies tingling, Denies paresthesias and Denies weakness Endo Denies palpitations Physical exam (Primary Care) Vital Signs: Last Vital Signs Pulse 82 06/25/24 08:50 BP 130/78 06/25/24 08:50 Pulse Ox 98 06/25/24 08:50 Oxygen Delivery Method Room Air 06/25/24 08:50 BMI result Body Mass Index 31.1 Tobacco/Smoking Status: Tobacco use Status Tobacco use date assessed 12/06/23 06/25/24 08:53 Patient Tobacco Use Status Former Tobacco user 06/25/24 08:53 Tobacco use type Cigarette 06/25/24 08:53 e-Cigarette/Vaping Use Never Used 06/25/24 08:53 Thrive Assessment: Date of Thrive Assessment Date Thrive assessed 12/06/23 06/25/24 08:53 Const General: cooperative, healthy appearing, comfortable and no acute distress Orientation/consciousness: patient oriented x3 HENMT Head: Yes normocephalic Ears: hearing grossly normal bilaterally General nose exam: Normal external nose present Eyes General: appearance normal, both eyes and all related structures Conjunctivae: conjunctivae normal Pupils: Equal, round and reactive pupils present Neck Neck: Yes full ROM and Yes no lymphadenopathy Resp Effort & Inspection: normal respiratory effort Auscultation: clear to auscultation bilaterally, no crackles, no rales, no rhonchi and no wheezes Cardio Rate: regular rate Rhythm: regular rhythm Skin General skin exam: no rashes or lesions noted Neuro General: patient oriented x3 Cranial nerves: Yes Facial sensation intact/muscles of mastication intact, Yes Equal, round and reactive pupils present, Yes Normal accommodation reflex present, Yes Bilaterally intact EOM present, Yes Nystagmus not present, Yes Normal facial strength present, Yes Midline tongue present and Yes Ability to bilaterally elevate shoulders present Cognition (Neuro): normal cognition Gait exam (Neuro): Normal gait present Motor exam (neuro): 5/5 motor strength present throughout Extrem General: Yes normal to inspection, Yes full ROM and No edema Psych Affect: normal affect Attitude: cooperative Insight: Good insight present (Psych) Judgement: Good judgement present (Psych) Coding Level of Care Code Est Pt Level 4 (32620) Diagnoses Headache R51.9 Dizziness R42 Assessment & Plan Assessment & Plan (1) Headache: Code(s): R51.9 - Headache, unspecified Category: Medical Plan: This concern does not appear to be new she denies headaches in the last 3 days in the headaches typically resolves spontaneously or with Tylenol. Continue to monitor symptoms and head CT ordered. Continue to monitor the blood pressure as well. (2) Dizziness: Code(s): R42 - Dizziness and giddiness Category: Medical Plan: Patient having intermittent dizziness episodes discussed that this is likely related to possible vertigo as the episode self resolve and lack of other symptoms. No neurological deficits on exam today continue to monitor symptoms. Prescription sent for meclizine to help with the dizziness. Order for head CT to rule out any underlying intracranial abnormality as the patient is on antiplatelet therapy and new symptoms since the fall. Follow up in 1 month at next visit or sooner if new problems arise or symptoms worsen. Plan This note was constructed using voice recognition software. While every effort has been made to ensure accuracy and police stenographer, still areas may have been included sometimes these areas may affect the content or meeting of the given symptoms. Total time spent caring for the patient today was 30 minutes. This includes time spent before the visit reviewing the chart, time spent during the visit, and time spent after the visit and documentation. Orders: Orders CT head/brain wo IV con Today R42 - Dizziness and giddiness, R51.9 - Headache, unspecified Medications: New meclizine 12.5 mg PO TID PRN 20 tabs 0RF dizziness Refilled fluticasone propion-salmeterol 250-50 mcg/dose (Wixela Inhub) 1 ea PO BID 60 ea 0RF J45.20 - Mild intermittent asthma, uncomplicated
== END 2024-06-25 09:58 | disposition home or self-care (01) ==
PROVIDERS: PCP Internal Medicine
DX: R51.9 Headache, unspecified (principal); R42 Dizziness and giddiness

== ENCOUNTER → 2024-06-25 08:49 | Outpatient (BNVA) | payer OTHER, SELFPAY | PROVIDERS: PCP Internal Medicine | DX: R51.9 Headache, unspecified (principal); R42 Dizziness and giddiness | CPT/HCPCS: 99212 ==

== ENCOUNTER → 2024-07-09 14:47 | Outpatient (REF) | payer OTHER, SELFPAY ==
--- NOTE | 2024-07-09 14:50 | CA_ITS ---
Transthoracic Echocardiogram Patient (Last, First, Middle): Anahy Hogan, Gender: Female Date of : 1950 Age: 74 Procedure Date: 07/09/2024 Procedure Type: Transthoracic Echocardiogram Location: OP Height: 157.48 cm Weight: 77.11 kg BSA: 1.78 m2 Heart Rate: 81 bpm BP: 132 / 70 mmHg Meat Specialist: SB Referring MD: Nicole Son REVENUE CYCLE CONSULTANTRoberto Carlos Symptoms: I25.10 - Atherosclerotic heart disease of [place] coronary artery without... Study Quality: Adequate ECG Rhythm: Sinus Conclusions: - Visually estimated LVEF 50-60%. - The inferolateral wall is hypokinetic. - No obvious valvular pathology seen on this study. Findings Left Ventricle Normal left ventricular cavity size. The left ventricular systolic function is normal. There is evidence of regional wall motion abnormalities. Evidence suggests grade I (mild) diastolic dysfunction. There is severe septal asymmetric hypertrophy. Visually estimated LVEF 50-60%. Wall Motion Rest Echo Findings The inferolateral wall is hypokinetic. Atria Both atria are normal in size. Aortic Valve There is a normal trileaflet aortic valve. There is no aortic valve stenosis. There is no aortic valve regurgitation. Mitral Valve There is mild mitral annular calcification. There is trace mitral valve regurgitation. There is no mitral valve stenosis. Pulmonic Valve The pulmonic valve is likely normal. Tricuspid Valve There is no tricuspid valve regurgitation. Tricuspid regurgitation envelope is inadequate for calculation of right ventricular systolic pressure. Great Vessels The asc aorta is normal in size. Venous The inferior vena cava is normal in size and collapses greater than 50% with inspiration. Pericardium/Pleural There is no evidence of pericardial effusion. Prior Study Comparison No significant change compared to prior study dated: 05/11/2023. Recommendations, Care & Conclusions No obvious valvular pathology seen on this study. Measurements 2D Linear Measurements IVSd: 1.48 0.6-0.9/0.6-1.0 cm LVIDd: 4.49 3.9-5.3/4.2-5.9 cm LVIDd Index: 2.52 2.4-3.2/2.2-3.1 cm/m2 LVIDs: 3.17 2.0-3.6 cm LVPWd: 0.79 0.7-1.1 cm LA Diam: 3.70 2.7-3.8/3.0-4.0 cm LAIDs Index: 2.08 1.5-2.3 cm/m2 LV Mass: 227.28 67-162/88-224 g LV Mass Index: 127.68 43-95/49-115 g/m2 LVOT Diam: 2.20 3.0+(-)1.3 cm 2D Systolic Function EF 4C: 52.40 >55% EF 2C: 57.40 >55% EF BiP: 52.10 >55% Mitral Valve MV Pk E: 0.85 MV PK A: 1.17 MV Decel Time: 214.00 E/A: 0.70 E'Lateral: 6.96 E'Medial: 3.81 E/E' Med: 22.40 E/E' Lat: 12.30 PHT: 63.00 MVA PHT: 3.49 Decel Garza: 3.98 Aortic Valve AoV Pk Kavin: 1.36 AoV Pk Grad: 7.00 JESSE: 2.20 LVOT LVOT Pk Kavin: 0.81 LVOT Mn Kavin: 0.58 LVOT VTI: 0.18 LVOT Pk Grad: 3.00 LVOT Mn Grad: 2.00 LVOT Diam: 2.20 LVOT Area: 3.80 Diastolic Function MV Pk E: 0.85 MV Pk A: 1.17 E/A: 0.70 E'Medial: 3.81 E/E' Med: 22.40 E' Laterial: 6.96 E/E' Lat: 12.30 Right Ventricle TAPSE (mm): 24.40 TVS' Kavin: 17.30 Tricuspid Valve RA Press: 3.00 Great Vessels Aorta Sinus of Valsalva: 3.10 2.0-3.5 cm Ao Asc: 3.10 2.1-3.4 cm Pulmonary Valve PV Pk Kavin: 0.74 Peak PV Grad: 2.00 Updated in Other Vendor System with Status of Final Андрей Nunez MD electronically signed on 07/11/2024 7:06:30 PM with status of Final
== END ==
LOC: HO.CARD 14:47
PROVIDERS: PCP Internal Medicine; Visit Provider Nurse Practitioner Family
DX: I25.10 Atherosclerotic heart disease of native coronary artery without angina pectoris (principal)
CPT/HCPCS: 93306

== ENCOUNTER → 2024-07-09 14:50 | Outpatient (BNV) | payer OTHER, SELFPAY | PROVIDERS: PCP Internal Medicine; Visit Provider Internal Medicine | DX: I42.2 Other hypertrophic cardiomyopathy (principal); I34.81 Nonrheumatic mitral (valve) annulus calcification | CPT/HCPCS: 93306 ==

== ENCOUNTER 2024-07-14 09:15 | Outpatient (AMB) | payer OTHER, SELFPAY ==
[2024-07-14 09:17] VITALS: BP 128/66; PULSE 88; O2SAT 97; BMI 31.0
--- NOTE | 2024-07-14 09:17 | MHC.OFFVIS ---
Vital Signs 07/14/24 09:17 Height 5 ft 2 in Weight 169 lb 12.095 oz BMI 31.0 BP 128/66 Blood Pressure Location Rt brachial Position Sitting Pulse 88 Pulse Source Pulse Oximeter Pulse Oximetry (%) 97 Oxygen Delivery Method Room Air Intake Visit Reasons: 3 month follow up Intake Note: PRESCRIPTIONS LAST GENERATED sennosides 8.6 mg tablet?(Natural Senna Laxative)?17.2 mg (2 x 8.6 mg) PO BEDTIME 60 tabs 3RF Marcia Candelario 02/15/24 10:47 (Transmitted) Pt is no longer taking this medication. Pt states that it was TOO effective and causing diarrhea episodes. Relevant Flags or Indicators ? Requires Diazo Technician? Willard Higginbotham presents in office today for a scheduled 6 mos FUV. CC; No recent labs, diagnostics placed. ? Relevant GI Sx as reported per pt? None ? Fecal abnormalities o?? Diarrhea ? Hx of any recent surgeries? None Diazo Technician Required: Yes Diazo Technician Services: Diazo Technician Offered & Declined Diazo Technician Name: Family Allergies aspirin [Aspirin] Allergy (Mild, Verified 07/14/24 09:18) Abdominal Pain Penicillins Allergy (Mild, Verified 07/14/24 09:18) NAUSEA/STOMACH PAIN hydrochlorothiazide Allergy (Unknown, Verified 07/14/24 09:18) hypokalemia lisinopril Allergy (Unknown, Verified 07/14/24 09:18) ? swelling [id number]-[id number] Reductase Inhibitor Allergy (Unknown, Verified 07/14/24 09:18) Muscle cramps amlodipine Adverse Reaction (Intermediate, Verified 07/14/24 09:18) leg swelling ibuprofen [From Motrin] Adverse Reaction (Unknown, Verified 07/14/24 09:18) Abdominal Pain HPI HPI 3 month follow up: Details: LAST VISIT: Anemia Abdominal bloating Constipation GERD (gastroesophageal reflux disease) Gastroparesis Plan Continue current PPI regimen. Avoid dietary triggers and late night snacking. Increase fluid intake and activity to promote better bowel motility. Patient will start taking senna. Smaller meals and more often. Staying upright for minimum 3 hours after meals discussed with patient. Patient is due for colonoscopy, however unable to stop Plavix yet till May. Patient has follow-up with Cardiology in May. Will send message to surgical scheduled today to book colonoscopy and upper endoscopy, however patient will follow-up in the office in May to discuss prep and both procedures. Patient is agreeable to this plan and verbalizes understanding of instructions. She was given the opportunity to ask questions and all questions answered. ? Thank you for allowing me to participate in her care Medications New sennosides (Natural Senna Laxative) 17.2 mg (2 x 8.6 mg) PO BEDTIME 60 tabs 3RF constipation K59.00 TODAY'S VISIT Patient is here today for follow-up. Patient reports that she has been doing well since the last time I have seen her. Patient reports that she is not having any epigastric pain. Patient is tolerating Mounjaro well. Reports to have good appetite. Now that she is taking pantoprazole she is able to tolerate more food. Patient admits to overeat at times. Patient denies any nausea or vomiting. Patient denies any dyspepsia, dysphagia or odynophagia. Denies any melena, hematochezia, unintentional weight loss or ribbon like stools. No issues with anesthesia in the past. Patient denies any cardiac or respiratory symptoms. No history of sleep apnea. [facility] Medical History Headache Type 2 diabetes mellitus with hypoglycemia Pulmonary nodules Hiatal hernia Coronary artery disease Hypercholesterolemia Orthopnea Gastroparesis Lower extremity edema Urinary frequency Right shoulder pain Constipation Abdominal bloating Shoulder pain, right Hip pain, left Nasal congestion Chest pain NSTEMI (non-ST elevated myocardial infarction) Fall HLD (hyperlipidemia) Colon cancer screening Pleural effusion, right Nocturia more than twice per night Glaucoma Cataract of left eye Renal cyst Preop exam for internal medicine On beta kamryn at home Vitamin D deficiency Osteoporosis Restless leg syndrome Type 2 diabetes mellitus with diabetic polyneuropathy Tubal ligation evaluation Adrenal adenoma Pulmonary nodule Fracture of toe of left foot Positive MAGGIE (antinuclear antibody) Osteoarthritis of both knees Osteopenia Ulnar neuropathy Asthma GERD (gastroesophageal reflux disease) Obesity (BMI 30-39.9) Surgical History Hx of right cataract extraction History of esophagogastroduodenoscopy (EGD) Hx of colonoscopy History of breast biopsy History of tubal ligation History of laparoscopic cholecystectomy Family History Mother HTN (hypertension) Diabetes Brother Lung cancer Sister Cancer, colon Daughter Uterine cancer Father Prostate cancer Social History Household Members: Spouse Household Members Other:: Granddaughter is RETAIL SALES MERCHANDISER lives upstairs Housing: Other Housing Other:: m2 family house Are you a primary critical care physician to a significant other at home: No Do you presently have visiting nurse or other home services: Yes ([employer] every day) Alcohol intake: never Patient Tobacco Use Status: Former Tobacco user Tobacco use type: Cigarette e-Cigarette/Vaping Use: Never Used Second Hand Smoke Exposure: No service: No Current occupational status: retired and disabled Cognitive needs: No Hearing needs: No Vision needs: Yes (glasses) Review of Systems Const Denies weight gain and Denies weight loss ENT Reports no additional complaints, Denies dysphagia and Denies odynophagia Card Reports no additional complaints Resp Reports no additional complaints GI Denies abdominal pain, Denies belching, Denies melena, Denies bloating, Denies change in bowel habits, Denies dysphagia, Denies excessive flatus, Denies dyspepsia, Denies heartburn, Denies diarrhea, Denies loose stools, Denies nausea, Denies odynophagia and Denies vomiting Musc Reports no additional complaints Neuro Reports no additional complaints Psych Reports no additional complaints Endo Reports no additional complaints Physical Exam Vital Signs: BMI result Body Mass Index 31.0 Const General: healthy appearing and no acute distress Nutritional Appearance: obese Orientation/consciousness: patient oriented x3 Resp Effort & Inspection: normal respiratory effort, able to speak in complete sentences, no tracheal deviation and symmetric chest movement Auscultation: clear to auscultation bilaterally Cardio Rate: regular rate GI Inspection: Yes normal to inspection and No distended Palpation (GI): Soft to palpation, not firm, nontender and No hepatosplenomegaly present Auscultation: normal bowel sounds General: Yes no CVA tenderness Back/Spine/Pelvis Back: no CVA tenderness Skin General skin exam: elasticity normal, turgor normal and dry skin Neuro General: patient oriented x3 Psych Appearance: grossly normal Mental Status: mental status grossly normal Assessment & Plan Assessment & Plan (1) Anemia: Code(s): D64.9 - Anemia, unspecified Category: Medical Qualifiers: Anemia type: unspecified type Qualified Code(s): D64.9 - Anemia, unspecified (2) Abdominal bloating: Code(s): R14.0 - Abdominal distension (gaseous) Category: Medical (3) Constipation: Code(s): K59.00 - Constipation, unspecified Category: Medical Qualifiers: Constipation type: slow transit constipation Qualified Code(s): K59.01 - Slow transit constipation (4) GERD (gastroesophageal reflux disease): Code(s): K21.9 - Gastro-esophageal reflux disease without esophagitis Category: Medical Qualifiers: Esophagitis presence: without esophagitis Qualified Code(s): K21.9 - Gastro-esophageal reflux disease without esophagitis (5) Gastroparesis: Code(s): K31.84 - Gastroparesis Category: Medical Plan Continue pantoprazole twice a day. Avoid dietary triggers and late night snacking. Patient was encouraged to eat smaller meals and more often. We discussed that we will decrease pantoprazole to 20 mg twice a day next visit. Upper endoscopy and colonoscopy scheduled. NICOLASA Tan to call patient with specific instruction as patient is taking Mounjaro. She will call her 2 weeks before procedure. Patient saw Cardiology and she was cleared. I will see her after the procedure, sooner on as needed basis. She is agreeable to this plan and verbalizes understanding of instructions. She was given the opportunity to ask questions and all questions answered. Thank you for allowing me to participate in her care Coding Level of Care Code Est Pt Level 3 (71102) Diagnoses Anemia D64.9 Anemia type: unspecified type Abdominal bloating R14.0 Slow transit constipation K59.01 Constipation type: slow transit constipation Gastroesophageal reflux disease without esophagitis K21.9 Esophagitis presence: without esophagitis Gastroparesis K31.84 Time Spent (min) 30 Comment 20 minutes spent with patient and additional 10 minutes spent reviewing her records
== END 2024-07-14 09:46 | disposition home or self-care (01) ==
LOC: HO.HGI 09:16
PROVIDERS: PCP Internal Medicine; Visit Provider Nurse Practitioner Family
DX: D64.9 Anemia, unspecified (principal); R14.0 Abdominal distension (gaseous); K59.01 Slow transit constipation; K21.9 Gastro-esophageal reflux disease without esophagitis; K31.84 Gastroparesis
CPT/HCPCS: 99213

== ENCOUNTER → 2024-07-14 09:15 | Outpatient (BNVA) | payer OTHER, SELFPAY | PROVIDERS: PCP Internal Medicine; Visit Provider Nurse Practitioner Family | DX: K21.9 Gastro-esophageal reflux disease without esophagitis (principal); K59.01 Slow transit constipation; E11.43 Type 2 diabetes mellitus with diabetic autonomic (poly)neuropathy; K31.84 Gastroparesis; D64.9 Anemia, unspecified; R14.0 Abdominal distension (gaseous) | CPT/HCPCS: 99212 ==

== ENCOUNTER 2024-07-21 09:22 | Outpatient (AMB) | payer OTHER, SELFPAY ==
[2024-07-21 09:26] VITALS: BP 130/72; PULSE 83; O2SAT 98; BMI 31.1
--- NOTE | 2024-07-21 09:26 | A.OFFPC_ITS ---
Vital Signs 07/21/24 09:26 Height 5 ft 2 in Weight 170 lb 0.6 oz BMI 31.1 BP 130/72 Blood Pressure Location Lt brachial Position Sitting Pulse 83 Pulse Source Pulse Oximeter Pulse Oximetry (%) 98 Oxygen Delivery Method Room Air Intake Visit Reasons: 3mth f/u Allergies aspirin [Aspirin] Allergy (Mild, Verified 07/21/24 09:30) Abdominal Pain Penicillins Allergy (Mild, Verified 07/21/24 09:30) NAUSEA/STOMACH PAIN hydrochlorothiazide Allergy (Unknown, Verified 07/21/24 09:30) hypokalemia lisinopril Allergy (Unknown, Verified 07/21/24 09:30) ? swelling [facility]-OSC-IwI Reductase Inhibitor Allergy (Unknown, Verified 07/21/24 09:30) Muscle cramps amlodipine Adverse Reaction (Intermediate, Verified 07/21/24 09:30) leg swelling ibuprofen [From Motrin] Adverse Reaction (Unknown, Verified 07/21/24 09:30) Abdominal Pain Medication List - Last Reconciled 07/21/24 by Virgie Ham PA-C [adult pull ups As directed] aspirin 81 mg PO DAILY 90 days blood pressure monitor (Blood Pressure Kit) As directed blood sugar diagnostic (OneTouch Verio test strips) As directed twice a day, fasting am and at bedtime blood-glucose sensor (Stantum G7 Sensor device) As directed change every 10 days brimonidine 0.2% drps ophthalmic (eye) cholecalciferol (vitamin D3) 50 mcg PO DAILY clopidogrel 75 mg PO DAILY ferrous sulfate 325 mg PO BID fluticasone propion-salmeterol 250-50 mcg/dose (Wixela Inhub) 1 ea PO BID furosemide (Lasix) 20 mg PO DAILY insulin glargine (Lantus Solostar U-100 Insulin) 14 units (0.14 mL) subcut .qhs lancets As directed twice a day latanoprost 0.005% drps ophthalmic (eye) losartan 100 mg PO DAILY meclizine 12.5 mg PO TID PRN metformin 1,000 mg (2 x 500 mg) PO BID metoprolol tartrate 100 mg PO BID nebulizers (Nimble CRMa Nebulizer System) As directed updraft Q 4 hours prn with albuterol neomycin-polymyxin B-dexameth 3.5 mg/g-10,000 unit/g-0.1 % 1 appl ophthalmic (eye) Q8H pantoprazole 40 mg PO BID rosuvastatin 20 mg PO DAILY tirzepatide (Mounjaro) 5 mg (0.5 mL) subcut QWEEK tizanidine 4 mg PO BEDTIME PRN Tobacco use date assessed: 12/06/23 Fall risk assessment: No Falls in past year Last assessed Fall Risk: 07/21/24 Dental Screening Dental Screen Date: 12/06/23 HPI 3mth f/u HPI Details 74-year-old obese female with diabetes m ellitus hypertension coronary artery disease hypercholesterolemia anemia and asthma coming in for 3 month follow up. Last seen 06/25/2024.? In review of the notes, patient was seen by [facility] [place] 07/14/2024 advised to continue on pantoprazole b.i.d. and scheduled for upper endoscopy with colonoscopy. Patient states for the last 15 days when she uses the bathroom she has foul smelly urine with a reddish tinge. She also complains of low back pain that is started before the urinary symptoms after she rolled out of bed. Denies any fevers, burning with urination or going more than usual. More recently she has been drinking an increased amount of Gatorade which she mixes with water. Breathing has been good on current medication regimen. No blood in the urine. She denies any blood sugar values below 100 and has been having several values over 200. Also complaining of left thumb pain which began several days ago. [facility] Medical History Headache Type 2 diabetes mellitus with hypoglycemia Pulmonary nodules Hiatal hernia Coronary artery disease Hypercholesterolemia Orthopnea Gastroparesis Lower extremity edema Urinary frequency Right shoulder pain Constipation Abdominal bloating Shoulder pain, right Hip pain, left Nasal congestion Chest pain NSTEMI (non-ST elevated myocardial infarction) Fall HLD (hyperlipidemia) Colon cancer screening Pleural effusion, right Nocturia more than twice per night Glaucoma Cataract of left eye Renal cyst Preop exam for internal medicine On beta kamryn at home Vitamin D deficiency Osteoporosis Restless leg syndrome Type 2 diabetes mellitus with diabetic polyneuropathy Tubal ligation evaluation Adrenal adenoma Pulmonary nodule Fracture of toe of left foot Positive MAGGIE (antinuclear antibody) Osteoarthritis of both knees Osteopenia Ulnar neuropathy Asthma GERD (gastroesophageal reflux disease) Obesity (BMI 30-39.9) Surgical History Hx of right cataract extraction History of esophagogastroduodenoscopy (EGD) Hx of colonoscopy History of breast biopsy History of tubal ligation History of laparoscopic cholecystectomy Family History Mother HTN (hypertension) Diabetes Brother Lung cancer Sister Cancer, colon Daughter Uterine cancer Father Prostate cancer Social History Household Members: Spouse Household Members Other:: Granddaughter is ALLERGIST/IMMUNOLOGIST lives upstairs Housing: Other Housing Other:: m2 family house Are you a primary senior care provider to a significant other at home: No Do you presently have visiting nurse or other home services: Yes (ALLERGIST/IMMUNOLOGIST every day) Alcohol intake: never Patient Tobacco Use Status: Former Tobacco user Tobacco use type: Cigarette e-Cigarette/Vaping Use: Never Used Second Hand Smoke Exposure: No service: No Current occupational status: retired and disabled Cognitive needs: No Hearing needs: No Vision needs: Yes (glasses) Questionnaire Thrive Questionnaire Date Thrive assessed: 12/06/23 Are you currently unemployed and looking for a job?: No AUDIT C Alcohol Use Questionnaire (AUDIT-C) 1. How often do you have a drink containing alcohol?: Never 3. How often do you have six or more drinks on one occasion?: Never Total Score: 0 QUYNH-7 AMB Questionnaire QUYNH-7 Date QUYNH - 7 assessed: 12/06/23 Source: Developed by Drs. Jhon Cedeño, Cara [place], Isaias Michael and colleagues, with an educational joey from [employer]. Review of Systems Const Denies body aches, Denies chills, Denies fever(s), Denies headache(s) and Denies poor appetite Eyes Reports no additional complaints ENT Denies dizziness and Denies headache(s) Card Denies chest pain, Denies syncope, Denies edema, Denies lightheadedness and Denies dyspnea Resp Denies cough and Denies dyspnea GI Denies abdominal pain, Denies constipation, Denies diarrhea, Denies nausea and Denies vomiting Details: Foul smelling urine Musc Reports as per HPI, Denies abnormal gait and Reports back pain Skin/Breast Reports system reviewed and no additional complaints, except as documented Neuro Denies abnormal gait, Denies dizziness, Denies syncope and Denies headache(s) Psych Reports no additional complaints Physical exam (Primary Care) Vital Signs: Last Vital Signs Pulse 83 07/21/24 09:26 BP 130/72 07/21/24 09:26 Pulse Ox 98 07/21/24 09:26 Oxygen Delivery Method Room Air 07/21/24 09:26 BMI result Body Mass Index 31.1 Tobacco/Smoking Status: Tobacco use Status Tobacco use date assessed 12/06/23 07/21/24 09:34 Patient Tobacco Use Status Former Tobacco user 07/21/24 09:34 Tobacco use type Cigarette 07/21/24 09:34 e-Cigarette/Vaping Use Never Used 07/21/24 09:34 Thrive Assessment: Date of Thrive Assessment Date Thrive assessed 12/06/23 07/21/24 09:34 Const General: cooperative, healthy appearing, comfortable and no acute distress Orientation/consciousness: patient oriented x3 HENMT Head: Yes normocephalic Ears: hearing grossly normal bilaterally General nose exam: Normal external nose present Eyes General: appearance normal, both eyes and all related structures Conjunctivae: conjunctivae normal Neck Neck: Yes full ROM and Yes no lymphadenopathy Resp Effort & Inspection: normal respiratory effort Auscultation: clear to auscultation bilaterally, no crackles, no rales, no rhonchi and no wheezes Cardio Rate: regular rate Rhythm: regular rhythm GI Palpation (GI): Soft to palpation, not firm, nontender, no guarding and not rigid General: Yes no CVA tenderness Back/Spine/Pelvis Back: no CVA tenderness Skin General skin exam: no rashes or lesions noted Neuro General: patient oriented x3 Gait exam (Neuro): Normal gait present Extrem Other: Intact pulses, strength, sensation in bilateral upper extremities. No pain to palpation of left thumb, wrist or thenar eminence. + Finklestein test. General: Yes normal to inspection, Yes full ROM and No edema Psych Affect: normal affect Attitude: cooperative Insight: Good insight present (Psych) Judgement: Good judgement present (Psych) Results AMB Urinalysis, Automated UA Leukoctes 15 Amberly/uL Last Edit by NGUYEN Howe on 07/21/24 09:58 UA Nitrite Positive Last Edit by Ryliealicia eHrnandez [facility] on 07/21/24 09:58 UA Urobilinogen 0.2 mg/dL Last Edit by Ryliealicia Hernandez [facility] on 07/21/24 09:58 UA Protein 2 mg/dL Last Edit by Ryliealicia Hernandez [facility] on 07/21/24 09:58 UA pH 6.0 Last Edit by Ryliealicia Hernandez [facility] on 07/21/24 09:58 UA Blood 0 Edwin/uL Last Edit by Ryliealicia Hernandez [facility] on 07/21/24 09:58 UA Specific [place] 1.020 Last Edit by Ryliealicia Hernandez [facility] on 07/21/24 09:58 UA Ketone Negative Last Edit by Ryliealicia Hernandez [facility] on 07/21/24 09:58 UA Bilirubin 1 mg/dL Last Edit by Ryliealicia Hernandez [facility] on 07/21/24 09:58 UA Glucose 0 mg/dL Last Edit by Ryliealicia Hernandez [facility] on 07/21/24 09:58 Coding Level of Care Code Est Pt Level 4 (96207) Diagnoses Type 2 diabetes mellitus with hypoglycemia without coma, with long-term current use of insulin E11.649; Z79.4 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 Although fruits are generally healthy they should be eaten in moderation as they are still high in sugar. Hemoglobin A1c goal of less than 7%. A1c 7.1% on last blood work. (2) Hypercholesterolemia: Comment: Patient cannot tolerate statins Code(s): E78.00 - Pure hypercholesterolemia, unspecified Category: Medical Plan: Avoid foods that are high in cholesterol such as red meat, fried foods, eggs and baked goods. Triglyceride goal of less than 150 and LDL goal of less than 70. Ordered for repeat blood work (3) Coronary artery disease: Comment: echo normal LV 60-65% June 2019, May 2023 distal LAD drug-eluting stent Code(s): I25.10 - Atherosclerotic heart disease of [place] coronary artery without angina pectoris Category: Medical Qualifiers: Coronary Disease-Associated Artery/Lesion type: [place] artery [place] vs. transplanted heart: [place] heart Associated angina: without angina Qualified Code(s): I25.10 - Atherosclerotic heart disease of [place] coronary artery without angina pectoris Plan: Advised good control of blood pressure, blood sugar and cholesterol. (4) Hypertension: Code(s): I10 - Essential (primary) hypertension Category: Medical Plan: Continue on current blood pressure medication. Avoid salt intake and encourage healthy diet and regular exercise. (5) Obesity (BMI 30-39.9): Code(s): E66.9 - Obesity, unspecified Category: Medical Plan: Healthy diet and regular exercise is encouraged. (6) Asthma: Code(s): J45.909 - Unspecified asthma, uncomplicated Category: Medical Qualifiers: Asthma severity: mild Asthma persistence: intermittent Asthma complication type: uncomplicated Qualified Code(s): J45.20 - Mild intermittent asthma, uncomplicated Plan: Asthma currently controlled on present medications. Continue on Wixela and ne bulizer as needed. Avoid triggers such as allergies. (7) Cystitis: Code(s): N30.90 - Cystitis, unspecified without hematuria Category: Medical Plan: Patient found to acute urinary tract infection on exam today. No evidence of pyelonephritis at this time, afebrile without CVA tenderness. We will trial nitrofurantoin b.i.d. x7 days and urine sent for culture. Advised patient to follow up if symptoms worsen or do not improve and reviewed red flag symptoms and when to present for re-evaluation. Plan This note was constructed using voice recognition software. While every effort has been made to ensure accuracy and stream control officer, still areas may have been included sometimes these areas may affect the content or meeting of the given symptoms. Total time spent caring for the patient today was 20 minutes. This includes time spent before the visit reviewing the chart, time spent during the visit, and time spent after the visit and documentation. Orders: Orders Urine Culture Today R82.90 - Unspecified abnormal findings in urine AMB Urinalysis Automated Today R30.0 - Dysuria Creatinine Urine Today E11.65 - Type 2 diabetes mellitus with hyperglycemia UA CC w/rflx Micro + Cult Today E11.65 - Type 2 diabetes mellitus with hyperglycemia, R30.0 - Dysuria Lipid Panel Today Z98.890 - Other specified postprocedural states Complete Blood Count Auto Diff Today D64.9 - Anemia, unspecified Vitamin B12 and Folate Today Z00.00 - Encounter for general adult medical examination without abnormal findings Vitamin D 25-OH (D2 and D3) Today Z00.00 - Encounter for general adult medical examination without abnormal findings Medications: New nitrofurantoin monohyd/m-cryst 100 mg must administer with a meal/food 100 mg PO Q12H 7 days 14 caps 0RF Refilled fluticasone propion-salmeterol 250-50 mcg/dose (Wixela Inhub) 1 ea PO BID 60 ea 0RF J45.20 - Mild intermittent asthma, uncomplicated
== END 2024-07-21 10:11 | disposition home or self-care (01) ==
PROVIDERS: PCP Internal Medicine
DX: E11.649 Type 2 diabetes mellitus with hypoglycemia without coma (principal); Z79.4 Long term (current) use of insulin; N30.90 Cystitis, unspecified without hematuria; R30.0 Dysuria; E78.00 Pure hypercholesterolemia, unspecified; I25.10 Atherosclerotic heart disease of native coronary artery without angina pectoris; I10 Essential (primary) hypertension; E66.9 Obesity, unspecified; J45.20 Mild intermittent asthma, uncomplicated

== ENCOUNTER 2024-07-21 09:22 | Outpatient (REF) | payer OTHER, SELFPAY | END 2024-07-21 09:23 | disposition home or self-care (01) | LOC: HO.LNP 09:22 | PROVIDERS: PCP Internal Medicine | DX: E11.649 Type 2 diabetes mellitus with hypoglycemia without coma (principal); E78.00 Pure hypercholesterolemia, unspecified; I25.10 Atherosclerotic heart disease of native coronary artery without angina pectoris; I10 Essential (primary) hypertension; E66.9 Obesity, unspecified; J45.20 Mild intermittent asthma, uncomplicated; N30.90 Cystitis, unspecified without hematuria; Z79.4 Long term (current) use of insulin | CPT/HCPCS: 81003; 99212 ==

== ENCOUNTER 2024-07-25 07:28 | Outpatient (REF) | payer OTHER, SELFPAY ==
--- NOTE | ~2024-07-25 | CT_ITS ---
EXAMINATION: CT HEAD WITHOUT CONTRAST CLINICAL INFORMATION: R51.9 - Headache, unspecified COMPARISON: CT dated June 20, 2023 TECHNIQUE: Contiguous axial imaging was performed from the skull base to vertex without intravenous administration of contrast. This CT examination was performed using dose optimization techniques as appropriate, variously including the following: *Automated exposure control *Adjustment of mA and/or kV according to patient size (this includes techniques or standardized protocols for targeted exams where dose is matched to indication/reason for exam; i.e. extremities or head) *Use of iterative reconstruction technique DLP: 762 mGy-cm FINDINGS: No acute intracranial hemorrhage, mass effect, midline shift, hydrocephalus or herniation. [place]-white matter differentiation is normal. Posterior cranial fossa contents demonstrated no acute intracranial hemorrhage or mass effect. Sellar/suprasellar region demonstrated a CSF prominence of the sella turcica suggesting diaphragmatic sellar insufficiency. No gross masses. Craniocervical junction is grossly intact and normal. Calcified plaques in the cavernous and supraclinoid segments both ICA. No air-fluid levels in the included paranasal sinuses. Tympanic cavities and mastoid air cells are aerated. CT/CT head/brain wo IV con IMPRESSION: No acute intracranial hemorrhage or acute brain abnormality by CT. Electronically signed by: Haroldo Palm MD 07/25/2024 10:19 AM CRISTIN
== END 2024-07-25 07:29 | disposition home or self-care (01) ==
LOC: HO.CT 07:28
PROVIDERS: PCP Internal Medicine
DX: R51.9 Headache, unspecified (principal); R42 Dizziness and giddiness
CPT/HCPCS: 70450

== ENCOUNTER → 2024-07-25 07:30 | Outpatient (BNV) | payer OTHER, SELFPAY | PROVIDERS: PCP Internal Medicine; Visit Provider Radiology Diagnostic Radiology | DX: R51.9 Headache, unspecified (principal); R42 Dizziness and giddiness | CPT/HCPCS: 70450 ==

== ENCOUNTER 2024-07-27 11:06 | Emergency (ER) | payer OTHER, SELFPAY ==
--- NOTE | ~2024-07-27 | XR_ITS ---
EXAMINATION: XR CHEST CLINICAL INFORMATION: Cough. Question pneumonia. COMPARISON: Chest radiograph dated 03/30/2024. TECHNIQUE: Frontal view of the chest was obtained. FINDINGS: The lungs are clear. The cardiomediastinal silhouette is normal in size. There is no pleural effusion or pneumothorax. No acute osseous abnormality. XR/XR chest 1V IMPRESSION: No acute cardiopulmonary findings. Electronically signed by: Brett Mandujano MD 07/27/2024 11:40 AM [facility] [place]
[2024-07-27 11:17] VITALS: BP 146/65; PULSE 91; RESP 19; TEMP 36.6; O2SAT 97; BMI 30.9
--- NOTE | 2024-07-27 11:22 | ED_ITS ---
HPI - General Adult General Chief complaint: Upper Respiratory Symptoms Stated complaint: Cough, sore throat Time Seen by Provider: 07/27/24 11:29 Source: family and science interpreter Mode of arrival: ambulatory Limitations: language barrier History of Present Illness ED Provider: Kristina HPI narrative: Patient is a 74-year-old female with history of T2 DM, NSTEMI status post cardiac catheterization, pulmonary nodules presenting to the emergency department with 3 days of cough, shortness of breath, sore throat and hoarse voice. Denies fevers. Has not taken any odgk-vbg-cdwiwme medications for her symptoms. Denies any chest pain or palpitations. Denies any recent pedal edema. Cough is non-productive. States she feels as though her throat is swollen, pain and burning with swallowing. MD complaint: sore throat, cough Onset (ago): day(s) Quality: burning Pain Consistency: constant Treatments prior to arrival: none Related Data Home Medications ?Medication ?Instructions ?Recorded ?Confirmed brimonidine 0.2 % eye drops drp ophthalmic (eye) 02/15/24 07/21/24 latanoprost 0.005 % eye drops drp ophthalmic (eye) 02/15/24 07/21/24 clopidogrel 75 mg tablet 75 mg PO DAILY 07/14/24 07/21/24 neomycin 3.5 mg/g-polymyxin B 1 appl ophthalmic (eye) Q8H 07/14/24 07/21/24 10,000 unit/g-dexameth 0.1 % eye oint Previous Rx's ?Medication ?Instructions ?Recorded nebulizers (Altera Nebulizer #1 ea 06/29/20 System) blood pressure monitor (Blood #1 ea 11/01/22 Pressure Kit) lancets 33 gauge #100 ea 05/08/23 adult pull ups #180 ea 05/09/23 aspirin 81 mg tablet,delayed 81 mg PO DAILY 90 days #90 tabs 06/11/23 release blood sugar diagnostic (OneTouch #50 ea 06/25/23 Verio test strips) metformin 500 mg tablet 1,000 mg (2 x 500 mg) PO BID #120 12/31/23 tabs metoprolol tartrate 100 mg tablet 100 mg PO BID #180 tabs 01/16/24 blood-glucose sensor (Dexcom G7 #3 ea 01/24/24 Sensor device) furosemide 20 mg tablet (Lasix) 20 mg PO DAILY #7 tabs 03/30/24 losartan 100 mg tablet 100 mg PO DAILY #30 tabs 03/31/24 cholecalciferol (vitamin D3) 50 50 mcg PO DAILY #28 caps 04/03/24 mcg (2,000 unit) capsule rosuvastatin 20 mg tablet 20 mg PO DAILY #30 tabs 04/04/24 pantoprazole 40 mg tablet,delayed 40 mg PO BID #56 tabs 05/13/24 release insulin glargine 100 unit/mL (3 14 unit (0.14 mL) subcut .qhs #15 05/20/24 mL) subcutaneous pen (Lantus mL Solostar U-100 Insulin) tizanidine 4 mg capsule 4 mg PO BEDTIME PRN muscle 05/23/24 spasticity #30 caps ferrous sulfate 325 mg (65 mg 325 mg PO BID #56 tabs 05/27/24 iron) tablet,delayed release tirzepatide 5 mg/0.5 mL 5 mg (0.5 mL) subcut QWEEK #2 mL 05/27/24 subcutaneous pen injector (Tunde) meclizine 12.5 mg tablet 12.5 mg PO TID PRN dizziness #20 06/25/24 tabs fluticasone 250 mcg-salmeterol 50 1 ea PO BID #60 ea 07/21/24 mcg/dose blistr powdr for inhalation (Wixela Inhub) nitrofurantoin 100 mg PO Q12H 7 days #14 caps 07/21/24 monohydrate/macrocrystals 100 mg capsule bisacodyl 5 mg tablet,delayed 20 mg (4 x 5 mg) PO ONCE 1 day #4 07/25/24 release (Dulcolax (bisacodyl)) tabs polyethylene glycol 3350 17 238 g PO ONCE #238 grams 07/25/24 gram/dose oral powder (Miralax) Allergies Allergy/AdvReac Type Severity Reaction Status Date / Time aspirin [Aspirin] Allergy Mild Abdominal Verified 07/27/24 11:18 Pain Penicillins Allergy Mild NAUSEA/STOMACH Verified 07/27/24 11:18 PAIN hydrochlorothiazide Allergy Unknown hypokalemia Verified 07/27/24 11:18 lisinopril Allergy Unknown ? swelling Verified 07/27/24 11:18 Msqlzcz-LNE-HwZ Reductase Allergy Unknown Muscle Verified 07/27/24 11:18 Inhibitor cramps amlodipine AdvReac Intermediate leg Verified 07/27/24 11:18 swelling ibuprofen [From Motrin] AdvReac Unknown Abdominal Verified 07/27/24 11:18 Pain Review of Systems Review of Systems: as per hpi Yes all other systems are reviewed and are negative Constitutional: Constitutional: Reports as per HPI [facility] Past Medical History Medical History Headache Type 2 diabetes mellitus with hypoglycemia Pulmonary nodules Hiatal hernia Coronary artery disease Hypercholesterolemia Orthopnea Gastroparesis Lower extremity edema Urinary frequency Right shoulder pain Constipation Abdominal bloating Shoulder pain, right Hip pain, left Nasal congestion Chest pain NSTEMI (non-ST elevated myocardial infarction) Fall HLD (hyperlipidemia) Colon cancer screening Pleural effusion, right Nocturia more than twice per night Glaucoma Cataract of left eye Renal cyst Preop exam for internal medicine On beta kamryn at home Vitamin D deficiency Osteoporosis Restless leg syndrome Type 2 diabetes mellitus with diabetic polyneuropathy Tubal ligation evaluation Adrenal adenoma Pulmonary nodule Fracture of toe of left foot Positive MAGGIE (antinuclear antibody) Osteoarthritis of both knees Osteopenia Ulnar neuropathy Asthma GERD (gastroesophageal reflux disease) Obesity (BMI 30-39.9) Surgical History Hx of right cataract extraction History of esophagogastroduodenoscopy (EGD) Hx of colonoscopy History of breast biopsy History of tubal ligation History of laparoscopic cholecystectomy Family History Family History Mother HTN (hypertension) Diabetes Brother Lung cancer Sister Cancer, colon Daughter Uterine cancer Father Prostate cancer Social History Social History Household Members: Spouse Household Members Other:: Granddaughter is PROFESSOR OF EARLY CHILDHOOD EDUCATION lives upstairs Housing: Other Housing Other:: m2 family house Are you a primary acute care occupational therapist to a significant other at home: No Do you presently have visiting nurse or other home services: Yes (PROFESSOR [employer]IL[employer]UC[employer] every day) Alcohol intake: never Patient Tobacco Use Status: Former Tobacco user Tobacco use type: Cigarette e-Cigarette/Vaping Use: Never Used Second Hand Smoke Exposure: No Advance Directives: No Advance Directives Information Provided: Yes Do you have a plan to hurt others: No Plan service: No Current occupational status: retired and disabled Cognitive needs: No Hearing needs: No Vision needs: Yes (glasses) Physical Exam ED Vital Signs: Vital Signs - 24 hr 07/27/24 11:17 Temperature 98 F Pulse Rate 91 Respiratory Rate 19 Blood Pressure 146/65 H Pulse Oximetry 97 BMI result Body Mass Index 30.9 Vital signs have been reviewed and appear to be correct. Blood pressure normal. Heart rate normal. Respiratory rate normal. Temperature normal. Oxygen sat uration normal. Const General: cooperative, healthy appearing and no acute distress Orientation/consciousness: oriented to person, oriented to place, oriented to time and patient oriented x3 Limitations: no limitations HENMT Head: Yes normocephalic and Yes atraumatic Ears: external ears normal, TM's normal bilaterally and EAC's normal General nose exam: Normal external nose present Face and sinus: Yes face symmetric Mouth: oropharynx normal and moist mucous membranes Throat: Yes uvula midline, Yes abnormal tonsil (erythema, no edema or exudate), No peritonsillar mass and No uvular edema Eyes Pupils: Equal, round and reactive pupils present Neck Neck: Yes normal visual inspection, Yes no lymphadenopathy and Yes supple Resp Effort & Inspection: normal respiratory effort and able to speak in complete sentences Auscultation: clear to auscultation bilaterally Cardio Rate: regular rate Rhythm: regular rhythm Heart sounds: S1 normal heart sound present and S2 normal heart sound present GI Palpation (GI): Soft to palpation and nontender Auscultation: normoactive bowel sounds General: Yes no CVA tenderness Back/Spine/Pelvis Back: no CVA tenderness Skin General skin exam: elasticity normal and turgor normal Neuro General: oriented to person, oriented to place, oriented to time, patient oriented x3, moves all extremities, no focal motor deficits and CN's II-XI intact bilaterally Cranial nerves: Yes Equal, round and reactive pupils present Cognition (Neuro): normal cognition Extrem General: Yes full ROM, Yes no pedal edema and Yes no calf tenderness Psych Mental Status: mental status grossly normal Affect: normal affect Thought process: Normal thought process present Course Course Course Narrative: RME: 74 yold female with pmh of DM, HTN, and asthma presents to the ED for sore throat, cough, bodyaches, and chills. Patient states her grand daughter were sick also. lungs cclear. no leg swelling. iral cavity normal. SARS, Strep, and xray. Medications Administered Discontinued Medications Generic Name Dose Route Start Last Admin Trade Name Erasto PRN Reason Stop Dose Admin Dexamethasone 10 mg 07/27/24 13:31 07/27/24 13:37 Dexamethasone 2 Mg Tablet PO 07/27/24 13:32 10 mg ONCE ONE Administration Medical Decision Making Medical Decision Making [facility] Narrative: Patient is a 74-year-old female with history of T2 DM, NSTEMI status post cardiac catheterization, pulmonary nodules presenting to the emergency department with 3 days of cough, shortness of breath, sore throat and hoarse voice. On exam patient is awake, A+Ox3, VS WNL, afebrile, normal neurological exam without focal deficits, physical exam findings as above. Given reported symptoms and physical exam findings, initial differential includes strep vs viral pharyngitis, other viral illness, COVID, flu, RSV, bronchitis, pneumonia. Strep and viral swabs negative. Chest x-ray is without evidence of pneumonia. My interpretation is in agreement with the radiologist's interpretation. Results discussed with patient and all questions answered. Will treat with 1 time dose of dexamethasone. Advised patient to use Tylenol, gargle with warm salt water, use honey for cough and sore throat. Follow-up with PCP. Return precautions discussed at bedside. Patient verbalized understanding of and agreement with plan. In-person historical interpreter was utilized for all interactions, assessments, and discussions. Differential Diagnosis Differential Diagnoses: The differential diagnosis associated with the presentation includes As per [facility] Admission/Observation Consideration of admission/observation: Escalation of care including admission/observation considered Patient would have been admitted to the hospital had their work up had any findings where hospital admission was appropriate and their clinical presentation warranted hospital admission. Lab Data [facility] Lab Attestation statement: I reviewed the patient's lab results. As per [facility] Labs: Lab Results 07/27/24 Range/Units 11:25 Influenza Type A (PCR) NEGATIVE (Negative) Influenza Type B (PCR) NEGATIVE (Negative) RSV RNA Qual (PCR) NEGATIVE (Negative) SARS-CoV-2 RNA (RT-PCR) NEGATIVE (Negative) S. pyogenes GrpA CORNELIUS Negative (Negative) Independent Interpretation I performed an independent interpretation of an: Plain X-Ray Interpretation: No evidence of pneumonia on chest x-ray Radiology Impression Discussion of test interpretation with radiology: I have reviewed the radiologist's reading. Radiologist Impression: XR/XR chest 1V IMPRESSION: No acute cardiopulmonary findings. External Record Review External record reviewed: Inpatient record, Office record and Outpatient record Discharge Plan Discharge Clinical Impression: Viral infection Patient Disposition: Home, Self-Care Instructions: Pharyngitis (ED), Viral Syndrome (ED) Additional Instructions: You were evaluated in the emergency department today for sore throat and cough. Your Covid, flu, RSV and strep tests were all negative. Your x-ray did not show evidence of pneumonia. Your symptoms are likely related to a viral illness which will resolve on its own with time and rest. You should ensure adequate fluid intake, and can use Tylenol 650 mg every 6 hours as needed for fever or discomfort. We also recommend gargling with warm salt water several times daily. You can also take a teaspoon of honey several times daily for cough. Please follow-up with your primary care provider this week. Return to the emergency department if you develop chest pain, worsening shortness of breath, difficulty swallowing, fever 100.4? F or greater or any other concerning symptoms. Prescriptions: No Action (DME) lancets 33 gauge misc See Rx Instructions .ROUTE .MEDSUPPLY Qty: 100 11RF Rx Instructions: As directed twice a day (DME) adult pull ups LARGE See Rx Instructions .Route .MEDSUPPLY Qty: 180 0RF Rx Instructions: As directed aspirin 81 mg tablet,delayed release (DR/EC) 81 mg PO DAILY 90 Days Qty: 90 3RF (DME) OneTouch Verio test strips Strip See Rx Instructions .ROUTE .MEDSUPPLY Qty: 50 11RF Rx Instructions: As directed twice a day, fasting am and at bedtime metformin 500 mg tablet 1,000 mg PO BID Qty: 120 5RF metoprolol tartrate 100 mg tablet 100 mg PO BID Qty: 180 1RF cholecalciferol (vitamin D3) 50 mcg (2,000 unit) capsule 50 mcg PO DAILY Qty: 28 5RF rosuvastatin 20 mg tablet 20 mg PO DAILY Qty: 30 2RF pantoprazole 40 mg tablet,delayed release (DR/EC) 40 mg PO BID Qty: 56 0RF tizanidine 4 mg capsule 4 mg PO BEDTIME PRN (Reason: muscle spasticity) Qty: 30 1RF ferrous sulfate 325 mg (65 mg iron) tablet,delayed release (DR/EC) 325 mg PO BID Qty: 56 0RF Mounjaro 5 mg/0.5 mL pen injector 5 mg subcut QWEEK Qty: 2 3RF bisacodyl [Dulcolax (bisacodyl)] 5 mg tablet,delayed release (DR/EC) 20 mg PO ONCE 1 Days Qty: 4 0RF Rx Instructions: take 4 tabs at noon the day before your colonoscopy polyethylene glycol 3350 [Miralax] 17 gram/dose powder 238 g PO ONCE Qty: 238 0RF Rx Instructions: As directed by gastroenterology department at [facility] furosemide [Lasix] 20 mg tablet 20 mg PO DAILY Qty: 7 0RF (DME) Altera Nebulizer System [facility] See Rx Instructions .ROUTE .MEDSUPPLY Qty: 1 0RF Rx Instructions: As directed updraft Q 4 hours prn with albuterol losartan 100 mg tablet 100 mg PO DAILY Qty: 30 3RF (DME) blood pressure monitor [Blood Pressure Kit] Kit See Rx Instructions .ROUTE .MEDSUPPLY Qty: 1 0RF Rx Instructions: As directed (DME) Dexcom G7 Sensor Device See Rx Instructions .Route Qty: 3 4RF Rx Instructions: As directed change every 10 days insulin glargine [Lantus Solostar U-100 Insulin] 100 unit/mL (3 mL) insulin pen 14 unit subcut .qhs Qty: 15 5RF fluticasone propion-salmeterol [Wixela Inhub] 250-50 mcg/dose blister with device 1 ea PO BID Qty: 60 0RF nitrofurantoin monohyd/m-cryst 100 mg capsule 100 mg PO Q12H 7 Days Qty: 14 0RF Rx Instructions: must administer with a meal/food meclizine 12.5 mg tablet 12.5 mg PO TID PRN (Reason: dizziness) Qty: 20 0RF latanoprost 0.005 % drops ophthalmic (eye) brimonidine 0.2 % drops ophthalmic (eye) neomycin-polymyxin B-dexameth 3.5 mg/g-10,000 unit/g-0.1 % ointment 1 appl ophthalmic (eye) Q8H clopidogrel 75 mg tablet 75 mg PO DAILY Print Language: Gabonese
[2024-07-27 11:43] LABS: IDNOW Serial# 08D9AD1C; Strep A Nucleic Acid Negative (Negative)
[2024-07-27 12:28] LABS: Influenza A PCR NEGATIVE (Negative); Influenza B PCR NEGATIVE (Negative); Resp Syncy Virus RNA Qual PCR NEGATIVE (Negative); SARS COV2 PCR INHOUSE NEGATIVE (Negative)
[2024-07-27] MEDS: dexAMETHasone 2 MG TABLET 10 MG PO (13:37)
--- NOTE | 2024-07-27 13:53 | PC.NURSE ---
pt medicated per MAR
[2024-07-27 14:25] VITALS: BP 146/65; PULSE 91; RESP 19; TEMP 36.6; O2SAT 97
== END 2024-07-27 14:25 | disposition home or self-care (01) ==
PROVIDERS: Physician Assistant; Emergency Provider Emergency Medicine; PCP Internal Medicine
DX: B34.9 Viral infection, unspecified (principal); R05.9 Cough, unspecified; E11.9 Type 2 diabetes mellitus without complications; R06.02 Shortness of breath; J02.9 Acute pharyngitis, unspecified; Z87.891 Personal history of nicotine dependence; Z03.818 Encounter for observation for suspected exposure to other biological agents ruled out
CPT/HCPCS: 0241U; 71045; 87651; 99282; 99283; J8540

== ENCOUNTER 2024-07-29 10:52 | Outpatient (AMB) | payer OTHER, SELFPAY ==
[2024-07-29 10:54] VITALS: BP 138/64; PULSE 76; BMI 31.3
--- NOTE | 2024-07-29 10:54 | A.OFFVIS_ITS ---
Vital Signs 07/29/24 10:54 Height 5 ft 2 in Weight 171 lb 1.259 oz BMI 31.3 BP 138/64 Blood Pressure Location Lt brachial Position Sitting Pulse 76 Pulse Source Pulse Oximeter Intake Visit Reasons: F/U diabetes/LVM Intake Note: Patient present today to follow up on Type 2 Diabetes Mellitus. Last Diabetic Eye exam: 07/02/2024 Last Podiatry Visit: Does not see a Agricultural Produce Commission Agent Random Glucose: 164 mg/dl HgA1C: 7.0% Tile Presser Required: Yes Tile Presser Language: Customer Sales Specialist Services: Tile Presser Offered & Declined Accompanied by: Daughter Allergies aspirin [Aspirin] Allergy (Mild, Verified 07/29/24 11:01) Abdominal Pain Penicillins Allergy (Mild, Verified 07/29/24 11:01) NAUSEA/STOMACH PAIN hydrochlorothiazide Allergy (Unknown, Verified 07/29/24 11:01) hypokalemia lisinopril Allergy (Unknown, Verified 07/29/24 11:01) ? swelling Xjnzsiq-NLG-FrA Reductase Inhibitor Allergy (Unknown, Verified 07/29/24 11:01) Muscle cramps amlodipine Adverse Reaction (Intermediate, Verified 07/29/24 11:01) leg swelling ibuprofen [From Motrin] Adverse Reaction (Unknown, Verified 07/29/24 11:01) Abdominal Pain Medication List - Last Reconciled 07/29/24 by LEOBARDO Smith [adult pull ups As directed] aspirin 81 mg PO DAILY 90 days bisacodyl (Dulcolax (bisacodyl)) 20 mg (4 x 5 mg) PO ONCE 1 day blood pressure monitor (Blood Pressure Kit) As directed blood sugar diagnostic (OneTouch Verio test strips) As directed twice a day, fasting am and at bedtime blood-glucose sensor (Dexcom G7 Sensor device) As directed change every 10 days brimonidine 0.2% drps ophthalmic (eye) cholecalciferol (vitamin D3) 50 mcg PO DAILY clopidogrel 75 mg PO DAILY ferrous sulfate 325 mg PO BID fluticasone propion-salmeterol 250-50 mcg/dose (Wixela Inhub) 1 ea PO BID furosemide (Lasix) 20 mg PO DAILY insulin glargine (Lantus Solostar U-100 Insulin) 8 units subcut .qhs lancets As directed twice a day latanoprost 0.005% drps ophthalmic (eye) losartan 100 mg PO DAILY meclizine 12.5 mg PO TID PRN metformin 1,000 mg (2 x 500 mg) PO BID metoprolol tartrate 100 mg PO BID nebulizers (Altera Nebulizer System) As directed updraft Q 4 hours prn with albuterol neomycin-polymyxin B-dexameth 3.5 mg/g-10,000 unit/g-0.1 % 1 appl ophthalmic (eye) Q8H nitrofurantoin monohyd/m-cryst 100 mg 100 mg PO Q12H 7 days pantoprazole 40 mg PO BID polyethylene glycol 3350 (Miralax) 238 grams PO ONCE rosuvastatin 20 mg PO DAILY tirzepatide (Mounjaro) 7.5 mg (0.5 mL) subcut QWEEK tizanidine 4 mg PO BEDTIME PRN HPI Comments Details: This is a 74-year-old female with a past medical history of coronary artery disease, type 2 diabetes, hyperlipidemia, osteopenia, adrenal adenoma, osteoporo sis and hypertension presenting for diabetic management. Her daughter, Roya, provides history and interpretation. They declined video food service helper. They tell me she was seen at the ER last week for for congestion and a cold. She is doing better now. CGM was not downloaded today. I reviewed her reader data during the past 14 days GMI: 7.3% Average glucose: 165 Blood glucose in target range (70-180) 67% of the time Blood glucose high (181-250) 28% of the time Blood glucose very high (>250) 4 % of the time Blood glucose low (55-69) 1% of the time , but the patient does not remember having hypoglycemia or treating episodes Blood glucose very low (less than 55) 0% of the time Hemoglobin a1c 7% 07/29/2024. Current medication regimen: Insulin glargine 14 units at bedtime, Mounjaro 5 mg weekly, metformin 1000 mg twice daily. Compliance issues: None Diet: Breakfast-eggs toast Lunch- small sandwich Dinner- rice, beans, meat Snacks/desserts: not really, occasionally she will have a cup of fruit. No juice or soda Drinks water throughout the day and coffee with splenda in the morning. Hypoglycemia symptoms: none Hyperglycemia symptoms: none Eye exam: 07/02/24 Microvascular complications: neuropathy Macrovascular complications: CAD Hypertension: treated with losartan 100 mg, metoprolol 100 mg twice a day, Lasix 20 mg. Hyperlipidemia: treated with Rosuvastatin 20 mg. ROS: Constitutional: No unexplained weight loss, fever, chills, fatigue. Eyes: No vision change Gastrointestinal: No anorexia, nausea, vomiting or diarrhea. No abdominal pain Neurologic: No numbness or tingling in extremities. No syncope. Skin: No open wounds or rashes. Physical exam: Constitutional: Alert, in no distress. Neck: Supple, Full range of motion. No lymphadenopathy. No palpable thyroid masses. Respiratory: Clear to auscultation. Cardiovascular: S1 S2 regular. No murmurs. Right foot: Warm and well perfused. No clubbing, cyanosis or edema. DP pulse 2+. No open wounds. Left foot: Warm and well perfused. No clubbing, cyanosis or edema. DP pulse 2+. No open wounds. [facility] Medical History Headache Type 2 diabetes mellitus with hypoglycemia Pulmonary nodules Hiatal hernia Coronary artery disease Hypercholesterolemia Orthopnea Gastroparesis Lower extremity edema Urinary frequency Right shoulder pain Constipation Abdominal bloating Shoulder pain, right Hip pain, left Nasal congestion Chest pain NSTEMI (non-ST elevated myocardial infarction) Fall HLD (hyperlipidemia) Colon cancer screening Pleural effusion, right Nocturia more than twice per night Glaucoma Cataract of left eye Renal cyst Preop exam for internal medicine On beta kamryn at home Vitamin D deficiency Osteoporosis Restless leg syndrome Type 2 diabetes mellitus with diabetic polyneuropathy Tubal ligation evaluation Adrenal adenoma Pulmonary nodule Fracture of toe of left foot Positive MAGGIE (antinuclear antibody) Osteoarthritis of both knees Osteopenia Ulnar neuropathy Asthma GERD (gastroesophageal reflux disease) Obesity (BMI 30-39.9) Surgical History Hx of right cataract extraction History of esophagogastroduodenoscopy (EGD) Hx of colonoscopy History of breast biopsy History of tubal ligation History of laparoscopic cholecystectomy Family History Mother HTN (hypertension) Diabetes Brother Lung cancer Sister Cancer, colon Daughter Uterine cancer Father Prostate cancer Social History Household Members: Spouse Household Members Other:: Granddaughter is FEATHEREDGER AND REDUCER MACHINE lives upstairs Housing: Other Housing Other:: m2 family house Are you a primary palliative care nurse to a significant other at home: No Do you presently have visiting nurse or other home services: Yes (FEATHEREDGER AND REDUCER MACHINE every day) Alcohol intake: never Patient Tobacco Use Status: Former Tobacco user Tobacco use type: Cigarette e-Cigarette/Vaping Use: Never Used Second Hand Smoke Exposure: No service: No Current occupational status: retired and disabled Cognitive needs: No Hearing needs: No Vision needs: Yes (glasses) Physical Exam Vital Signs: Last Vital Signs Pulse 76 07/29/24 10:54 BP 138/64 07/29/24 10:54 BMI result Body Mass Index 31.3 Results AMB Hemoglobin A1c AMB Hemoglobin A1c 7.0 % Last Edit by NGUYEN Wylie on 07/29/24 11:31 Results Reviewed Results Reviewed: Laboratory Last Values Glucose (Clinic) 164 mg/dL (60-115) H 07/29/24 11:03 Hgb A1c (Clinic) 7.0 % (4.0-6.0) H 07/29/24 11:07 Laboratory Tests 12/07/23 12/07/23 03/30/24 09:18 09:20 12:56 Creatinine 0.72 Estimated GFR > 60 Hemoglobin A1c % 7.7 H ALT 16 Alkaline Phosphatase 71 Triglycerides 68 Cholesterol 110 LDL Cholesterol, Calc 46 HDL Cholesterol 51 TSH 2.52 Free T4 0.93 Urine Creatinine 73.93 Urine Microalbumin 9.0 Microalb/Creat Ratio 12.1 Assessment & Plan Assessment & Plan (1) Type 2 diabetes mellitus with hypoglycemia: Code(s): E11.649 - Type 2 diabetes mellitus with hypoglycemia without coma Category: Medical Qualifiers: Diabetes mellitus complication detail: without coma Diabetes mellitus regional intermodal truck driver insulin use: with detention use Qualified Code(s): E11.649 - Type 2 diabetes mellitus with hypoglycemia without coma; Z79.4 - senior care (current) use of insulin Plan: In summary this is a 74-year-old female with controlled type 2 diabetes per hemoglobin A1c today. She would like to see if she can increase Mounjaro to lose more weight and decrease insulin. Increase Mounjaro to 7.5 mg weekly. Decrease Lantus from 14 units at bedtime to 8 units when she starts this dose. Continue metformin 1000 mg twice daily. Patient brought Dexcom sensor in today. This was placed on the patient and she left with her reader in the warm up period. She will follow up in 6 weeks to review CGM data after making these changes. They will contact the office if there are any issues with hypo or hyperglycemia. Orders: Orders AMB Hemoglobin A1c Today E11.649 - Type 2 diabetes mellitus with hypoglycemia without coma, Z13.9 - Encounter for screening, unspecified, Z79.4 - senior care (current) use of insulin Medications: New tirzepatide (Mounjaro) 7.5 mg (0.5 mL) subcut QWEEK 2 mL 3RF Discontinued tirzepatide (Mounjaro) Discontinued Reason: Doctor's Order 5 mg (0.5 mL) subcut QWEEK 2 mL 3RF Patient Instructions: Increase Mounjaro to 7.5 mg weekly. Decrease Lantus 8 units at bedtime. Continue Metformin 1000 mg twice daily. Aumente Mounjaro a 7.5 mg por semana. Disminuir Lantus 8 unidades al acostarse. Contin?e con metformina 1000 mg dos veces al d?a. Coding Level of Care Code Est Pt Level 4 (02760) Complex EM visit Add On G2211 Diagnoses Type 2 diabetes mellitus with hypoglycemia without coma, with long-term current use of insulin E11.649; Z79.4 Diabetes mellitus complication detail: without coma Diabetes mellitus detention insulin use: with detention use
[2024-07-29 11:07] LABS: Glucose, Whole Blood 164 mg/dL (60-115)
== END 2024-07-29 11:35 | disposition home or self-care (01) ==
PROVIDERS: PCP Internal Medicine; Visit Provider Physician Assistant Medical
DX: Z13.9 Encounter for screening, unspecified (principal); E11.649 Type 2 diabetes mellitus with hypoglycemia without coma; Z79.4 Long term (current) use of insulin

== ENCOUNTER → 2024-07-29 10:52 | Outpatient (BNVA) | payer OTHER, SELFPAY | PROVIDERS: PCP Internal Medicine; Visit Provider Physician Assistant Medical | DX: E11.649 Type 2 diabetes mellitus with hypoglycemia without coma (principal); Z79.4 Long term (current) use of insulin | CPT/HCPCS: 82947; 83036; 99212 ==

== ENCOUNTER 2024-09-12 10:53 | Outpatient (AMB) | payer OTHER, SELFPAY ==
--- NOTE | 2024-09-12 10:54 | MHC.OFFVIS ---
Vital Signs 09/12/24 10:59 Height 5 ft 2 in Weight 168 lb 10.458 oz BMI 30.8 BP 132/70 Blood Pressure Location Lt brachial Position Sitting Pulse 75 Pulse Source Pulse Oximeter Intake Visit Reasons: T2DM Intake Note: Patient present today to follow up on Type 2 Diabetes Mellitus. Last Diabetic Eye exam: 07/02/24 Last Podiatry Visit: Does not see a Roofing Laborer Random Glucose: 133 mg/dl HgA1C: 7.0% 07/29/24 Data Processing Control Clerk Required: Yes Data Processing Control Clerk Language: Electrical Fitter Services: Data Processing Control Clerk Offered & Declined Data Processing Control Clerk Name: Daughter will Interpret Accompanied by: Daughter Allergies aspirin [Aspirin] Allergy (Mild, Verified 09/12/24 11:00) Abdominal Pain Penicillins Allergy (Mild, Verified 09/12/24 11:00) NAUSEA/STOMACH PAIN hydrochlorothiazide Allergy (Unknown, Verified 09/12/24 11:00) hypokalemia lisinopril Allergy (Unknown, Verified 09/12/24 11:00) ? swelling Kzcjqjd-MNN-GpS Reductase Inhibitor Allergy (Unknown, Verified 09/12/24 11:00) Muscle cramps amlodipine Adverse Reaction (Intermediate, Verified 09/12/24 11:00) leg swelling ibuprofen [From Motrin] Adverse Reaction (Unknown, Verified 09/12/24 11:00) Abdominal Pain HPI Comments Details: This is a 74-year-old female with a past medical history of coronary artery disease, type 2 diabetes, hyperlipidemia, osteopenia, adrenal adenoma, osteoporosis and hypertension presenting for diabetic management. Her daughter, Roya, provides history and interpretation. They declined video laborer tree tapping. Dexcom download reviewed for the past 2 weeks Average glucose 165 GMI 7.3% Very high 3% High 27% Target 70% 0% low Less than 1% very low Trend shows hyperglycemia in the evening. Per CGM she had a low glucose event, but patient says this is an error because she was never alerted to a low glucose, and she did not have symptoms of hypoglycemia. Hemoglobin a1c 7% 07/29/2024. Current medication regimen: Insulin glargine 14 units at bedtime, Mounjaro 7.5 mg weekly, metformin 1000 mg twice daily. Compliance issues: Patient stopped taking Mounjaro a couple of weeks ago because she misunderstood the instructions for her medications prior to colonoscopy. Her colonoscopy was pushed out to October, and she thought she had to stop Mounjaro a month before rather than 1 week before. Her sugars have been higher in the evening. Diet: Breakfast-eggs toast Lunch- small sandwich Dinner- rice, beans, meat Snacks/desserts: not really, occasionally she will have a cup of fruit. No juice or soda Drinks water throughout the day and coffee with splenda in the morning. Hypoglycemia symptoms: none Hyperglycemia symptoms: none Eye exam: 07/02/24 Microvascular complications: neuropathy Macrovascular complications: CAD Hypertension: treated with losartan 100 mg, metoprolol 100 mg twice a day, Lasix 20 mg. Hyperlipidemia: treated with Rosuvastatin 20 mg. ROS: Constitutional: No unexplained weight loss, fever, chills, fatigue. Eyes: No vision change Gastrointestinal: No anorexia, nausea, vomiting or diarrhea. No abdominal pain Neurologic: No numbness or tingling in extremities. No syncope. Skin: No open wounds or rashes. Physical exam: Constitutional: Alert, in no distress. Neck: Supple, Full range of motion. No lymphadenopathy. No palpable thyroid masses. Respiratory: Clear to auscultation. Cardiovascular: S1 S2 regular. No murmurs. [facility] Medical History (Updated 07/28/24 @ 00:01 by Bobby Mcgill) Type 2 diabetes mellitus with hypoglycemia Pulmonary nodules Hiatal hernia Orthopnea Headache Fall NSTEMI (non-ST elevated myocardial infarction) Lower extremity edema HLD (hyperlipidemia) Colon cancer screening Urinary frequency Pleural effusion, right Nocturia more than twice per night Glaucoma Cataract of left eye Renal cyst Right shoulder pain Preop exam for internal medicine On beta kamryn at home Constipation Abdominal bloating Shoulder pain, right Hip pain, left Vitamin D deficiency Osteoporosis Restless leg syndrome Type 2 diabetes mellitus with diabetic polyneuropathy Nasal congestion Chest pain Tubal ligation evaluation Gastroparesis Adrenal adenoma Pulmonary nodule Fracture of toe of left foot Positive MAGGIE (antinuclear antibody) Osteoarthritis of both knees Osteopenia Ulnar neuropathy Asthma GERD (gastroesophageal reflux disease) Obesity (BMI 30-39.9) Coronary artery disease Hypercholesterolemia Surgical History History of coronary artery stent placement Hx of right cataract extraction History of esophagogastroduodenoscopy (EGD) Hx of colonoscopy History of breast biopsy History of tubal ligation History of laparoscopic cholecystectomy Family History Mother HTN (hypertension) Diabetes Brother Lung cancer Sister Cancer, colon Daughter Uterine cancer Father Prostate cancer Social History Household Members: Spouse Household Members Other:: Granddaughter is CORE ANALYSIS OPERATOR lives upstairs Housing: Other Housing Other:: m2 family house Are you a primary animal care worker to a significant other at home: No Do you presently have visiting nurse or other home services: Yes (CORE ANALYSIS OPERATOR every day) Alcohol intake: never Patient Tobacco Use Status: Former Tobacco user Tobacco use type: Cigarette e-Cigarette/Vaping Use: Never Used Second Hand Smoke Exposure: No service: No Current occupational status: retired and disabled Cognitive needs: No Hearing needs: No Vision needs: Yes (glasses) Physical Exam Vital Signs: Last Vital Signs Pulse 75 09/12/24 10:59 BP 132/70 09/12/24 10:59 BMI result Body Mass Index 30.8 Results Reviewed Results Reviewed: Laboratory Last Values Glucose (Clinic) 133 mg/dL (60-115) H 09/12/24 11:06 Assessment & Plan Assessment & Plan (1) Type 2 diabetes mellitus with hypoglycemia: Code(s): E11.649 - Type 2 diabetes mellitus with hypoglycemia without coma Category: Medical Qualifiers: Diabetes mellitus complication detail: without coma Diabetes mellitus salvage determiner insulin use: with skilled nursing use Qualified Code(s): E11.649 - Type 2 diabetes mellitus with hypoglycemia without coma; Z79.4 - penitentiary (current) use of insulin Plan: In summary this is a 74-year-old female with controlled type 2 diabetes. Restart Mounjaro 7.5 mg weekly. She tried decreasing insulin, but she had higher blood sugars. Continue Lantus 14 units daily. Lifestyle modifications reviewed. Continue home glucose monitoring with Dexcom. Reviewed treatment of hypoglycemia. Patient says she has glucose tablets at home. Follow up in 3 months for type 2 diabetes. Medications: Changed From insulin glargine (Lantus Solostar U-100 Insulin) 8 units subcut .qhs To insulin glargine (Lantus Solostar U-100 Insulin) 14 units (0.14 mL) subcut .qhs 15 mL 5RF Refilled tirzepatide (Mounjaro) 7.5 mg (0.5 mL) subcut QWEEK 2 mL 5RF Patient Instructions: On 08/04/24 @ 15:53 Mirta Jones Wrote To Anahy Hogan Jalen Wilkerson, This is Britney - nurse in GI office. I spoke to both of you regarding procedure - upper endoscopy and colonoscopy on 08/14. She will need someone to drive her home after this procedure. She will need to hold Medication Mounjaro 7 days prior to procedure, she takes this on Saturdays -please hold next dose on Sunday- 08/09. Please verify that you are not taking the medication - Plavix/ clopidogrel (blood thinner medication)- looks like her laxt cardiology appt it was stopped. Long acting insulin- 1/2 the dose the evening before procedure and no oral diabetic medications the morning of procedure. Short stay surgery will call the day before procedure to confirm her your arrival time. Please keep in mind a clear liquid diet and the prep medication - dulcolax and miralax start the day before procedure. please click on the link below for prep instructions. [email or web address] call office with any questions - [phone] Coding Level of Care Code Est Pt Level 4 (51592) Complex EM visit Add On G2211 Diagnoses Type 2 diabetes mellitus with hypoglycemia without coma, with long-term current use of insulin E11.649; Z79.4 Diabetes mellitus complication detail: without coma Diabetes mellitus skilled nursing insulin use: with salvage determiner use
[2024-09-12 10:59] VITALS: BP 132/70; PULSE 75; BMI 30.8
[2024-09-12 11:10] LABS: Glucose, Whole Blood 133 mg/dL (60-115)
--- OUTSIDE RECORDS SUMMARY | 2024-09-12 12:37 | XMS_ITS | Continuity of Care Document ---
Author Organization [facility] Address [address] [address] Phone Care Team Providers Care Sld Inclusion Teacher Name Role Phone Clayton Amy KNIGHT Unavailable Unavailable Advance Directives Directive Yes / No Effective Date File Name No Information Encounters Encounter Description Practice Location Reason(s) For Visit Diagnoses Date Provider Providers Copied on Encounter [facility], [address], [id number], tel:[phone] [facility] No Information Clayton Amy. [address] [place], [address]. tel:[phone] Family History Family Member Type Diagnosis Age At Onset No Information Payers Payer name Insurance type Covered republican ID Authoriza tion(s) No Information Social History Type Description Quantity Date Captured Comments Sex Female Smoking Status No Information Chief Complaint And Reason For Visit No Information Reason For Referral Reason For Referral No Information History Of Present Illness Encounter Date Complaint History Of Prese nt Illness No Information Functional Status Date Functional Assessmen t No Information Instructions Date Instruction Additional Infor mation No Information Assessments Type Assessment Date No Information Patient Care Teams Name Effective Dates (start - stop) Status Members No Information
== END 2024-09-12 11:37 | disposition home or self-care (01) ==
PROVIDERS: PCP Internal Medicine; Visit Provider Physician Assistant Medical
DX: E11.649 Type 2 diabetes mellitus with hypoglycemia without coma (principal); Z79.4 Long term (current) use of insulin

== ENCOUNTER → 2024-09-12 10:53 | Outpatient (BNVA) | payer OTHER, SELFPAY | PROVIDERS: PCP Internal Medicine; Visit Provider Physician Assistant Medical | DX: E11.649 Type 2 diabetes mellitus with hypoglycemia without coma (principal); Z79.4 Long term (current) use of insulin | CPT/HCPCS: 82947; 99212 ==

== ENCOUNTER 2024-10-20 10:21 | Outpatient (AMB) | payer OTHER, SELFPAY ==
--- NOTE | 2024-10-20 10:24 | A.OFFVIS_ITS ---
Vital Signs 10/20/24 10:28 Height 5 ft 2 in Weight 167 lb 8.821 oz BMI 30.6 BP 120/56 L Blood Pressure Location Rt brachial Position Sitting Pulse 94 Pulse Source Pulse Oximeter Pulse Oximetry (%) 96 Oxygen Delivery Method Room Air Intake Visit Reasons: 3 month follow up Intake Note: ESTABLISHED PATIENT for Abd bloating mgmt. Chief Complaint; Pt denies any GI concerns at this time. Reports that their conditions are well controlled with their medication (s). Dough Maker Required: Yes Dough Maker Services: Dough Maker Present Dough Maker Name: Celia [id number] Information Interpreted: clinical only Accompanied by: Daughter Allergies aspirin [Aspirin] Allergy (Mild, Verified 10/20/24 10:24) Abdominal Pain Penicillins Allergy (Mild, Verified 10/20/24 10:24) NAUSEA/STOMACH PAIN hydrochlorothiazide Allergy (Unknown, Verified 10/20/24 10:24) hypokalemia lisinopril Allergy (Unknown, Verified 10/20/24 10:24) ? swelling Xnxytfy-DZU-HdU Reductase Inhibitor Allergy (Unknown, Verified 10/20/24 10:24) Muscle cramps amlodipine Adverse Reaction (Intermediate, Verified 10/20/24 10:24) leg swelling ibuprofen [From Motrin] Adverse Reaction (Unknown, Verified 10/20/24 10:24) Abdominal Pain HPI HPI 3 month follow up: Details: LAST VISIT Anemia Abdominal bloating Constipation GERD (gastroesophageal reflux disease) Gastroparesis Plan Continue pantoprazole twice a day. Avoid dietary triggers and late night snacking. Patient was encouraged to eat smaller meals and more often. We discussed that we will decrease pantoprazole to 20 mg twice a day next visit. Upper endoscopy and colonoscopy scheduled. NICOLASA Tan to call patient with specific instruction as patient is taking Mounjaro. She will call her 2 weeks before procedure. Patient saw Cardiology and she was cleared. I will see her after the procedure, sooner on as needed basis. She is agreeable to this plan and verbalizes understanding of instructions. She was given the opportunity to ask questions and all questions answered. TODAY'S VISIT Patient is here today for follow-up and to discuss going for colonoscopy. Patient reports to be feeling well. Taking pantoprazole and her symptoms are suppressed. Patient denies dyspepsia, dysphagia or odynophagia. Patient reports that she is moving her bowels without any issues. Denies melena, hematochezia, unintentional weight loss or ribbon like stools. Patient denies issues with anesthesia. No history of sleep apnea. Patient is on low-dose aspirin. No longer is taking Plavix. 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 Patient denies any cardiac or respiratory symptoms. Patient denies any GI concerning symptoms. [facility] Medical History Type 2 diabetes mellitus with hypoglycemia Pulmonary nodules Hiatal hernia Orthopnea Headache Fall NSTEMI (non-ST elevated myocardial infarction) Lower extremity edema HLD (hyperlipidemia) Colon cancer screening Urinary frequency Pleural effusion, right Nocturia more than twice per night Glaucoma Cataract of left eye Renal cyst Right shoulder pain Preop exam for internal medicine On beta kamryn at home Constipation Abdominal bloating Shoulder pain, right Hip pain, left Vitamin D deficiency Osteoporosis Restless leg syndrome Type 2 diabetes mellitus with diabetic polyneuropathy Nasal congestion Chest pain Tubal ligation evaluation Gastroparesis Adrenal adenoma Pulmonary nodule Fracture of toe of left foot Positive MAGGIE (antinuclear antibody) Osteoarthritis of both knees Osteopenia Ulnar neuropathy Asthma GERD (gastroesophageal reflux disease) Obesity (BMI 30-39.9) Coronary artery disease Hypercholesterolemia Surgical History History of coronary artery stent placement Hx of right cataract extraction History of esophagogastroduodenoscopy (EGD) Hx of colonoscopy History of breast biopsy History of tubal ligation History of laparoscopic cholecystectomy Family History Mother HTN (hypertension) Diabetes Brother Lung cancer Sister Cancer, colon Daughter Uterine cancer Father Prostate cancer Social History Household Members: Spouse Household Members Other:: Granddaughter is FOSTER CARE THERAPIST lives upstairs Housing: Other Housing Other:: m2 family house Are you a primary critical care registered nurse to a significant other at home: No Do you presently have visiting nurse or other home services: Yes ([employer]ERAPIST every day) Alcohol intake: never Patient Tobacco Use Status: Former Tobacco user Tobacco use type: Cigarette e-Cigarette/Vaping Use: Never Used Second Hand Smoke Exposure: No service: No Current occupational status: retired and disabled Cognitive needs: No Hearing needs: No Vision needs: Yes (glasses) Review of Systems Const Denies weight gain and Denies weight loss ENT Reports no additional complaints, Denies dysphagia and Denies odynophagia Card Reports no additional complaints Resp Reports no additional complaints GI Denies abdominal pain, Denies belching, Denies melena, Denies bloating, Denies change in bowel habits, Denies dysphagia, Denies excessive flatus, Denies dyspepsia, Denies heartburn, Denies diarrhea, Denies loose stools, Denies nausea, Denies odynophagia and Denies vomiting Reports no additional complaints Musc Reports no additional complaints Neuro Reports no additional complaints Psych Reports no additional complaints Endo Reports no additional complaints Physical Exam Const General: healthy appearing and no acute distress Nutritional Appearance: obese Orientation/consciousness: patient oriented x3 Resp Effort & Inspection: normal respiratory effort, able to speak in complete sentences, no tracheal deviation and symmetric chest movement Auscultation: clear to auscultation bilaterally Cardio Rate: regular rate GI Inspection: Yes normal to inspection and No distended Palpation (GI): Soft to palpation, not firm, nontender and No hepatosplenomegaly present Auscultation: normal bowel sounds General: Yes no CVA tenderness Back/Spine/Pelvis Back: no CVA tenderness Skin General skin exam: elasticity normal, turgor normal and dry skin Neuro General: patient oriented x3 Psych Appearance: grossly normal Mental Status: mental status grossly normal Assessment & Plan Assessment & Plan (1) Anemia: Code(s): D64.9 - Anemia, unspecified Category: Medical Qualifiers: Anemia type: unspecified type Qualified Code(s): D64.9 - Anemia, unspecified (2) Abdominal bloating: Code(s): R14.0 - Abdominal distension (gaseous) Category: Medical (3) Constipation: Code(s): K59.00 - Constipation, unspecified Category: Medical Qualifiers: Constipation type: slow transit constipation Qualified Code(s): K59.01 - Slow transit constipation (4) GERD (gastroesophageal reflux disease): Code(s): K21.9 - Gastro-esophageal reflux disease without esophagitis Category: Medical Qualifiers: Esophagitis presence: without esophagitis Qualified Code(s): K21.9 - Gastro-esophageal reflux disease without esophagitis (5) Gastroparesis: Code(s): K31.84 - Gastroparesis Category: Medical (6) Screen for colon cancer: Code(s): Z12.11 - Encounter for screening for malignant neoplasm of colon Plan Continue pantoprazole. Patient is going for upper endoscopy to rule out gastritis, esophagitis, Sanchez's, H pylori, duodenitis. What to expect before during and after procedure discussed with patient. Stressed the importance of clear liquid diet and good bowel prep day before procedure. Patient will hold Mounjaro. She is taking it on Sunday. She will take her last dose on the and will hold the dose on . Procedure is on of this month. Patient denies any cardiac or respiratory symptoms. No longer on Plavix. Patient is taking aspirin daily. Appointment for follow-up after procedure already made. Patient denies any GI concerning symptoms today. Both patient and her daughter are agreeable to plan of care and verbalizes understanding of instructions. They were given the opportunity to ask questions and all questions answered. Thank you for allowing me to participate in her care Medications: Discontinued clopidogrel Discontinued Reason: Patient no longer taking 75 mg PO DAILY 30 tabs 0RF Coding Level of Care Code Est Pt Level 3 (46844) Diagnoses Anemia D64.9 Anemia type: unspecified type Abdominal bloating R14.0 Slow transit constipation K59.01 Constipation type: slow transit constipation Gastroesophageal reflux disease without esophagitis K21.9 Esophagitis presence: without esophagitis Gastroparesis K31.84 Screen for colon cancer Z12.11 Time Spent (min) 30 Comment 20 minutes spent with patient and additional 10 minutes spent reviewing her records
[2024-10-20 10:28] VITALS: BP 120/56; PULSE 94; O2SAT 96; BMI 30.6
--- OUTSIDE RECORDS SUMMARY | 2024-10-20 11:14 | XMS_ITS | Clinical Summary ---
Author Organization [facility] [facility] ity Address [address] [place] [address] Care Team Providers Care Operation Specialist Name Role Phone Junior Zayas MD Primary Care Provider [phone] Social History Tobacco Use Types Packs/Day Years Used Date Smoking Tobacco: Never Assessed Comments Unknown Sex and Gender Information Value Date Recorded Sex Assigned at Not on file Legal Sex Female 3:01 AM EST Gender Identity Not on file Sexual Orientation Not on file Plan of Treatment Health Maintenance Due Date Last Done Comments Diabetes: Annual GFR (Glomer ular Filtration Rate) 1948 DTaP,Tdap,and Td Vaccines (1 - Tdap) 1955 Diabetes: Annual Foot Exam 1958 Diabetes: Annual Retina Eye Exam 1958 Pneumococcal Vaccine: 50+ Ye ars (1 of 1 - PCV) 1998 Zoster Vaccines (1 of 2) 1998 Cholesterol Screening (Lipid Panel) 08/13/2022 Depression Screening 08/13/2022 Falls Risk Assessment 08/13/2022 Hepatitis C Screening 08/13/2022 Osteoporosis Screening (Bone Density Screening) 08/13/2022 Social Influencers of Health Screening 08/13/2022 RSV Immunization Patients 60 + Years Old (1 - 1-dose 75+ series) 2023 Diabetes: Annual Urine Albumin-Creatinine Ratio (uACR) 10/26/2023 Diabetes: Blood Sugar Contro l Test (HGBA1C) 10/26/2023 Hypertension/CHF/CAD Annual BMP Blood Test 10/26/2023 COVID-19 Vaccine ( - 2023-2 5 season) 2024 Influenza Vaccine (#1) 2024 HIB Vaccines Aged Out No longer eligi ble based on patient's age to complete this topic HPV Vaccines Aged Out No longer eligi ble based on patient's age to complete this topic Hepatitis A Vaccines Aged Out No long er eligible based on patient's age to complete this topic Hepatitis B Vaccines Aged Out No long er eligible based on patient's age to complete this topic IPV Vaccines Aged Out No longer eligi ble based on patient's age to complete this topic MMR Vaccines Aged Out No longer eligi ble based on patient's age to complete this topic Meningococcal ACWY Vaccine Aged Out N o longer eligible based on patient's age to complete this topic Meningococcal B Vacine Aged Out No lo nger eligible based on patient's age to complete this topic RSV Immunization Patients Un [place] 20 months Aged Out No longer eligible b ased on patient's age to complete this topic Varicella Vaccines Aged Out No longer eligible based on patient's age to complete this topic Care Teams Operation Specialist Relationship Specialty Start Date End Date Junior Zayas MD [address] [place] [address] [address] [facility] [place] [address] PCP - General 05/18/16
--- OUTSIDE RECORDS SUMMARY | 2024-10-20 11:14 | XMS_ITS | Continuity of Care Document ---
Author Organization [facility] Address [address] [address] Phone Care Team Providers Care Vamp Liner Name Role Phone [place] Amy KNIGHT Unavailable Unavailable Advance Directives Directive Yes / No Effective Date File Name No Information Encounters Encounter Description Practice Location Reason(s) For Visit Diagnoses Date Provider Providers Copied on Encounter [facility], [address], [id number], tel:[phone] [facility] No Information [place] Amy. [address] [place], [address]. tel:[phone] Family History Family Member Type Diagnosis Age [...]
== END 2024-10-20 11:25 | disposition home or self-care (01) ==
PROVIDERS: PCP Internal Medicine; Visit Provider Nurse Practitioner Family
DX: D64.9 Anemia, unspecified (principal); R14.0 Abdominal distension (gaseous); K59.01 Slow transit constipation; K21.9 Gastro-esophageal reflux disease without esophagitis; K31.84 Gastroparesis; Z12.11 Encounter for screening for malignant neoplasm of colon
CPT/HCPCS: 99213

== ENCOUNTER → 2024-10-20 10:21 | Outpatient (BNVA) | payer OTHER, SELFPAY | PROVIDERS: PCP Internal Medicine; Visit Provider Nurse Practitioner Family | DX: Z12.11 Encounter for screening for malignant neoplasm of colon (principal); K59.01 Slow transit constipation; K21.9 Gastro-esophageal reflux disease without esophagitis; K31.84 Gastroparesis; D64.9 Anemia, unspecified; R14.0 Abdominal distension (gaseous) | CPT/HCPCS: 99212 ==

== ENCOUNTER 2024-10-21 09:29 | Outpatient (AMB) | payer OTHER, SELFPAY ==
--- NOTE | 2024-10-21 09:31 | A.OFFPC_ITS ---
Vital Signs 10/21/24 09:33 Height 5 ft 2 in Weight 168 lb 2 oz BMI 30.7 BP 110/62 Blood Pressure Location Lt brachial Position Sitting Pulse 84 Pulse Source Pulse Oximeter Temp 96.9 F Temp Source Skin Pulse Oximetry (%) 99 Oxygen Delivery Method Room Air Intake Visit Reasons: f/u DM Intake Note: Patient is here to follow up on DM. Business Intelligence Consultant Required: Yes Business Intelligence Consultant Language: Carbon Paper Coating Machine Setter Name: Kimberlyn ([id number]) Information Interpreted: non-clinical & clinical Roll Up Machine Operator: Present Accompanied by: Daughter Allergies aspirin [Aspirin] Allergy (Mild, Verified 10/21/24 09:33) Abdominal Pain Penicillins Allergy (Mild, Verified 10/21/24 09:33) NAUSEA/STOMACH PAIN hydrochlorothiazide Allergy (Unknown, Verified 10/21/24 09:33) hypokalemia lisinopril Allergy (Unknown, Verified 10/21/24 09:33) ? swelling Vmxtdxr-RHW-BeW Reductase Inhibitor Allergy (Unknown, Verified 10/21/24 09:33) Muscle cramps amlodipine Adverse Reaction (Intermediate, Verified 10/21/24 09:33) leg swelling ibuprofen [From Motrin] Adverse Reaction (Unknown, Verified 10/21/24 09:33) Abdominal Pain Medication List - Last Reconciled 10/21/24 by Virgie Ham PA-C [Adult pull ups- large As directed] aspirin 81 mg PO DAILY 90 days brimonidine 0.2% drps ophthalmic (eye) cholecalciferol (vitamin D3) 50 mcg PO DAILY ferrous sulfate 325 mg PO BID fluticasone propion-salmeterol 250-50 mcg/dose (Wixela Inhub) 1 ea PO BID furosemide (Lasix) 20 mg PO DAILY insulin glargine (Lantus Solostar U-100 Insulin) 14 units (0.14 mL) subcut .qhs latanoprost 0.005% drps ophthalmic (eye) losartan 100 mg PO DAILY meclizine 12.5 mg PO TID PRN metformin 1,000 mg (2 x 500 mg) PO BID metoprolol tartrate 100 mg PO BID nebulizers (Altera Nebulizer System) As directed updraft Q 4 hours prn with albuterol neomycin-polymyxin B-dexameth 3.5 mg/g-10,000 unit/g-0.1 % 1 appl ophthalmic (eye) Q8H netarsudil 0.02% (Rhopressa) drps ophthalmic (eye) nitrofurantoin monohyd/m-cryst 100 mg 100 mg PO Q12H 7 days pantoprazole 40 mg PO BID rosuvastatin 20 mg PO DAILY tirzepatide (Mounjaro) 7.5 mg (0.5 mL) subcut QWEEK tizanidine 4 mg PO BEDTIME PRN [wipes As directed] Tobacco use date assessed: 10/21/24 Fall risk assessment: No Falls in past year Last assessed Fall Risk: 10/21/24 Dental Screening Dental Screen Date: 10/21/24 Did you have a dental visit in the last 12 months?: Yes Did you have a dental problem in the last 6 months where you did not have access to dental care?: No Was dental information given to patient?: Patient has dentist HPI f/u DM HPI Details 74-year-old obese female with diabetes m ellitus hypertension coronary artery disease hypercholesterolemia anemia and asthma coming in for 3 month follow up last seen 07/2024.? In review of the notes, patient was seen by GI 10/20/2024 advised to continue on pantoprazole, undergo upper endoscopy. Patient was seen by Endocrinology 09/12/2024 restarted on Mounjaro 7.5 mg weekly, continue on Lantus 14 units and continue with Dexcom. lang interpreter Kimberlyn ([id number]) was used for the duration of this visit. Today she tells use, Blood glucose readings mostly taken in the morning range from 130-140 mg/dL, with intermittent sensor use due to technical issues. She was recently started on Mounjaro 7.5 mg and insulin was increased to 14 units. Gastroesophageal reflux disease is present, with occasional emesis post-coffee ingestion. Acidic and caffeinated triggers are acknowledged. The patient reports discomfort in the wrist when using nocturnal splints for wrist pain and tingling, There are no concomitant trauma or injury events. [facility] Medical History (Updated 10/21/24 @ 10:31 by Virgie Ham PA-C) GERD (gastroesophageal reflux disease) Type 2 diabetes mellitus with hypoglycemia Pulmonary nodules Hiatal hernia Orthopnea Headache Fall NSTEMI (non-ST elevated myocardial infarction) Lower extremity edema HLD (hyperlipidemia) Colon cancer screening Urinary frequency Pleural effusion, right Nocturia more than twice per night Glaucoma Cataract of left eye Renal cyst Right shoulder pain Preop exam for internal medicine On beta kamryn at home Constipation Abdominal bloating Shoulder pain, right Hip pain, left Vitamin D deficiency Osteoporosis Restless leg syndrome Type 2 diabetes mellitus with diabetic polyneuropathy Nasal congestion Chest pain Tubal ligation evaluation Gastroparesis Adrenal adenoma Pulmonary nodule Fracture of toe of left foot Positive MAGGIE (antinuclear antibody) Osteoarthritis of both knees Osteopenia Ulnar neuropathy Asthma Obesity (BMI 30-39.9) Coronary artery disease Hypercholesterolemia Surgical History History of coronary artery stent placement Hx of right cataract extraction History of esophagogastroduodenoscopy (EGD) Hx of colonoscopy History of breast biopsy History of tubal ligation History of laparoscopic cholecystectomy Family History Mother HTN (hypertension) Diabetes Brother Lung cancer Sister Cancer, colon Daughter Uterine cancer Father Prostate cancer Social History Household Members: Spouse Household Members Other:: Granddaughter is MANAGER OF APPLICATION DEVELOPMENT lives upstairs Housing: Other Housing Other:: m2 family house Are you a primary continuum of care manager to a significant other at home: No Do you presently have visiting nurse or other home services: Yes (MANAGER OF APPLICATION DEVELOPMENT every day) Alcohol intake: never Patient Tobacco Use Status: Former Tobacco user Tobacco use type: Cigarette e-Cigarette/Vaping Use: Never Used Second Hand Smoke Exposure: Yes service: No Current occupational status: retired and disabled Cognitive needs: No Hearing needs: No Vision needs: Yes (glasses) Questionnaire PHQ-9 Over the last 2 weeks, how often have you been bothered by any of the following problems? 1. Little interest or pleasure in doing things: not at all 2. Feeling down, depressed, or hopeless: not at all 3. Trouble falling or staying asleep, or sleeping too much: not at all 4. Feeling tired or having little energy: not at all 5. Poor appetite or overeating: not at all 6. Feeling bad about yourself - or that you are a failure or have let yourself or your family down: not at all 7. Trouble concentrating on things, such as reading the newspaper or watching television: not at all 8. Moving or speaking so slowly that other people could have noticed. Or the opposite - being so fidgety or restless that you have been moving around a lot more than usual: not at all 9. Thoughts that you would be better off or of hurting yourself in some way: not at all Total score: 0 Depression Screening Interpretation: Negative Depression Screening Done: Yes Source: Developed by Drs. Jhon Cedeño, Cara Park, Isaias Michael and colleagues, with an educational joey from [employer]. Thrive Questionnaire Date Thrive assessed: 10/21/24 I am a: Patient What is your living situation today?: I have a steady place to live Within the past 12 months, did the food you bought not last and you didn't have the money to get more?: Never true Within the past 12 months, did you worry whether your food would run out before you got money to buy more?: Never true Do you have trouble paying for medicines?: No Do you have trouble getting transportation to medical appointments?: No Do you have trouble paying your heating and electricity bill?: No Do you have trouble taking care of your child, family member or friend?: No Do you have trouble with day-to-day activities such as bathing, preparing meals, shopping, managing finances, etc.?: No Are you currently unemployed and looking for a job?: No Are you interested in more education?: No Please select the resources that you would like help with: None Currently or been in a relationship where the following occur: No concerns reported THRIVE Score: 0 AUDIT C Alcohol Use Questionnaire (AUDIT-C) 1. How often do you have a drink containing alcohol?: Never Total Score: 0 QUYNH-7 AMB Questionnaire QUYNH-7 Date QUYNH - 7 assessed: 10/21/24 Feeling nervous, anxious, or on edge: 0 = Not at all Not being able to stop or control worryin = Not at all Worrying too much about different things: 0 = Not at all Trouble relaxin = Not at all Being so restless that it is hard to sit still: 0 = Not at all Becoming easily annoyed or irritable: 0 = Not at all Feeling afraid as if something awful might happen: 0 = Not at all Total QUYNH-7 score (0-4 normal; 5-9 mild; 10-14 moderate; 15-21 severe): 0 Source: Developed by Drs. Jhon Cedeño, Cara Park, Isaias Michael and colleagues, with an educational joey from [employer]. Review of Systems Const Denies body aches, Denies chills, Denies fever(s), Denies headache(s) and Denies poor appetite Eyes Reports no additional complaints ENT Denies dysphagia, Denies dizziness, Denies headache(s) and Denies odynophagia Card Denies chest pain, Denies syncope, Denies edema, Denies irregular heart rhythm, Denies lightheadedness and Denies dyspnea Resp Denies cough and Denies dyspnea GI Denies abdominal pain, Denies constipation, Denies dysphagia, Reports dyspepsia, Reports heartburn, Denies diarrhea, Denies nausea, Denies odynophagia and Denies vomiting Reports no additional complaints Musc Reports no additional complaints and Denies abnormal gait Skin/Breast Reports system reviewed and no additional complaints, except as documented Neuro Denies abnormal gait, Denies dizziness, Denies syncope and Denies headache(s) Psych Reports no additional complaints Physical exam (Primary Care) Vital Signs: Last Vital Signs Temp 96.9 F 10/21/24 09:33 Pulse 84 10/21/24 09:33 BP 110/62 10/21/24 09:33 Pulse Ox 99 10/21/24 09:33 Oxygen Delivery Method Room Air 10/21/24 09:33 BMI result Body Mass Index 30.7 Tobacco/Smoking Status: Tobacco use Status Tobacco use date assessed 10/21/24 10/21/24 09:38 Patient Tobacco Use Status Former Tobacco user 10/21/24 09:38 Tobacco use type Cigarette 10/21/24 09:38 e-Cigarette/Vaping Use Never Used 10/21/24 09:38 PHQ-9: PHQ-9 Score PHQ-9: Total score 0 10/21/24 09:50 Depression Screening Interpretation: Negative Thrive Assessment: Date of Thrive Assessment Date Thrive assessed 10/21/24 10/21/24 09:38 Currently or been in a relationship where the following occur: No concerns reported Const General: cooperative, healthy appearing, comfortable and no acute distress Orientation/consciousness: patient oriented x3 [facility] Head: Yes normocephalic Ears: hearing grossly normal bilaterally General nose exam: Normal external nose present Eyes General: appearance normal, both eyes and all related structures Conjunctivae: conjunctivae normal Neck Neck: Yes full ROM and Yes no lymphadenopathy Resp Effort & Inspection: normal respiratory effort Auscultation: clear to auscultation bilaterally, no crackles, no rales, no rhonchi and no wheezes Cardio Rate: regular rate Rhythm: regular rhythm Skin General skin exam: no rashes or lesions noted Neuro General: patient oriented x3 Gait exam (Neuro): Normal gait present Extrem Other: Pain to palpation over medial aspect of left wrist General: Yes normal to inspection, Yes full ROM and No edema Psych Affect: normal affect Attitude: cooperative Insight: Good insight present (Psych) Judgement: Good judgement present (Psych) Results AMB Hemoglobin A1c AMB Hemoglobin A1c 8.5 % Last Edit by NGUYEN Abel on 10/21/24 09:46 Results Reviewed Results Reviewed: Laboratory Last Values Hgb A1c (Clinic) 8.5 % (4.0-6.0) H 10/21/24 09:31 Coding Level of Care Code Est Pt Level 4 (50948) Diagnoses Type 2 diabetes mellitus with hyperglycemia, unspecified whether penitentiary insulin use E11.65 Diabetes mellitus parts counterman insulin use: unspecified parts counterman insulin use status Hypertension I10 Hypercholesterolemia E78.00 Coronary artery disease involving nenana coronary artery of nenana heart without angina pectoris I25.10 Coronary Disease-Associated Artery/Lesion type: nenana artery [place] vs. transplanted heart: nenana heart Associated angina: without angina Obesity (BMI 30-39.9) E66.9 Left wrist pain M25.532 Gastroesophageal reflux disease without esophagitis K21.9 Esophagitis presence: without esophagitis Assessment & Plan Assessment & Plan (1) Type 2 diabetes mellitus with hyperglycemia: Comment: Angel Guerra Code(s): E11.65 - Type 2 diabetes mellitus with hyperglycemia Category: Medical Qualifiers: Diabetes mellitus parts counterman insulin use: unspecified penitentiary insulin use status Qualified Code(s): E11.65 - Type 2 diabetes mellitus with hyperglycemia Plan: Decrease the amount of carbohydrates such as pasta, bread, rice, and potatoes and limit the amount of sweets. Although fruits are generally healthy they should be eaten in moderation as they are still high in sugar. Hemoglobin A1c goal of less than 7%. A1c 8.5% today likely will need an increase in her Mounmarniro however given this medication is provided by the script supervisor and will be up-to-date decision. I did send a message to the script supervisor working with her to inform her of the elevated blood sugars. Advised to continue on current medication regimen until discussing with endocrinology. (2) Hypertension: Code(s): I10 - Essential (primary) hypertension Category: Medical Plan: Continue on current blood pressure medication. Avoid salt intake and encourage healthy diet and regular exercise. (3) Hypercholesterolemia: Comment: Patient cannot tolerate statins Code(s): E78.00 - Pure hypercholesterolemia, unspecified Category: Medical Plan: Avoid foods that are high in cholesterol such as red meat, fried foods, eggs and baked goods. Triglyceride goal of less than 150 and LDL goal of less than 70. Reminded patient about blood work (4) Coronary artery disease: Comment: echo normal LV 60-65% June 2019, May 2023 distal LAD drug-eluting stent Code(s): I25.10 - Atherosclerotic heart disease of nenana coronary artery without angina pectoris Category: Medical Qualifiers: Coronary Disease-Associated Artery/Lesion type: nenana artery [place] vs. transplanted heart: nenana heart Associated angina: without angina Qualified Code(s): I25.10 - Atherosclerotic heart disease of nenana coronary artery without angina pectoris Plan: Advised good control of blood pressure, cholesterol and blood sugars. Blood sugars are uncontrolled at this time and reminded patient about blood work. (5) Obesity (BMI 30-39.9): Code(s): E66.9 - Obesity, unspecified Category: Medical Plan: Healthy diet and regular exercise is encouraged. (6) Left wrist pain: Code(s): M25.532 - Pain in left wrist Category: Medical Plan: Patient complaining of left wrist pain over the medial aspect of the left wrist. Ordered for x-ray for further evaluation. Advised to discontinue night splints as they are causing discomfort. (7) GERD (gastroesophageal reflux disease): Code(s): K21.9 - Gastro-esophageal reflux disease without esophagitis Category: Medical Qualifiers: Esophagitis presence: without esophagitis Qualified Code(s): K21.9 - Gastro-esophageal reflux disease without esophagitis Plan: Avoid trigger foods such as citrus, tomato products, soda, caffeine, spicy foods and other foods that may be irritating to your stomach. Avoid laying flat 3-4 hours after eating and elevate the head of the bed 30 degrees to prevent acid from moving into the esophagus. Continue on pantoprazole. Has endoscopy coming up with GI. Plan Patient was informed and verbally consented to the use of an ambient scribe for clinic note documentation during this visit. This note was constructed using voice recognition software. While every effort has been made to ensure accuracy and mechanical oxidizer, still areas may have been included sometimes these areas may affect the content or meeting of the given symptoms. Total time spent caring for the patient today was 20 minutes. This includes time spent before the visit reviewing the chart, time spent during the visit, and time spent after the visit and documentation. Orders: Orders AMB Hemoglobin A1c Today E11.65 - Type 2 diabetes mellitus with hyperglycemia XR wrist LT 2V Today M25.532 - Pain in left wrist
[2024-10-21 09:33] VITALS: BP 110/62; PULSE 84; TEMP 36.1; O2SAT 99; BMI 30.7
== END 2024-10-21 10:14 | disposition home or self-care (01) ==
PROVIDERS: PCP Internal Medicine
DX: E11.65 Type 2 diabetes mellitus with hyperglycemia (principal); I10 Essential (primary) hypertension; Z68.30 Body mass index [BMI] 30.0-30.9, adult; E66.9 Obesity, unspecified; E78.00 Pure hypercholesterolemia, unspecified; I25.10 Atherosclerotic heart disease of native coronary artery without angina pectoris; M25.532 Pain in left wrist; K21.9 Gastro-esophageal reflux disease without esophagitis

== ENCOUNTER → 2024-10-21 09:29 | Outpatient (BNVA) | payer OTHER, SELFPAY | PROVIDERS: PCP Internal Medicine | DX: E11.65 Type 2 diabetes mellitus with hyperglycemia (principal); E78.00 Pure hypercholesterolemia, unspecified; I10 Essential (primary) hypertension; I25.10 Atherosclerotic heart disease of native coronary artery without angina pectoris; E66.9 Obesity, unspecified; M25.532 Pain in left wrist; K21.9 Gastro-esophageal reflux disease without esophagitis | CPT/HCPCS: 83036; 99212 ==

== ENCOUNTER 2024-10-25 08:15 | Outpatient (REF) | payer OTHER, SELFPAY ==
--- NOTE | ~2024-10-25 | XR_ITS ---
CLINICAL HISTORY: M25.532 - Pain in left wrist Exam: PA, lateral, oblique, and scaphoid views of the left wrist. Comparison: None. Findings: Bony alignment is anatomic. No acute fracture. Bones are osteopenic. Mild degenerative change of the STT joint and 1st carpometacarpal joint. No erosions. Impression: No acute findings. This document has been electronically signed by: Dung Martinez MD on 10/25/2024 08:55:16
== END 2024-10-25 08:16 | disposition home or self-care (01) ==
LOC: HO.XRAY 08:15
PROVIDERS: PCP Internal Medicine
DX: M25.532 Pain in left wrist (principal)
CPT/HCPCS: 73100

== ENCOUNTER → 2024-10-25 08:24 | Outpatient (BNV) | payer OTHER, SELFPAY | PROVIDERS: PCP Internal Medicine; Visit Provider Radiology Diagnostic Radiology | DX: M25.532 Pain in left wrist (principal) | CPT/HCPCS: 73100 ==

== ENCOUNTER 2024-10-27 09:38 | Outpatient (REF) | payer OTHER, SELFPAY ==
--- OUTSIDE RECORDS SUMMARY | 2024-10-27 09:41 | XMS_ITS | Continuity of Care Document ---
Author Organization [facility] Address [address] [address] Phone Care Team Providers Care Pocket Marker Name Role Phone [place] Amy KNIGHT Unavailable Unavailable Advance Directives Directive Yes / No Effective Date File Name No Information Encounters Encounter Description Practice Location Reason(s) For Visit Diagnoses Date Provider Providers Copied on Encounter [facility], [address], [id number], tel:[phone] [facility] No Information [place] Amy. [address] [place], [address]. tel:[phone] Family History Family Member Type Diagnosis Age [...]
[2024-10-27 09:55] LABS: MANUAL DIFF FLAG NO
[2024-10-27 10:37] LABS: Appearance Urine Cloudy; Color Urine Yellow; Glucose Urine UA Negative (Negative); Leukocyte Esterase Urine Trace (Negative); Nitrite Urine Negative (Negative); PH 5.5 (5.0-9.0); UMIC TRIGGER UACC YES; Urine Blood Negative (Negative); Urine Ketones Negative (Negative); Urine Protein 30 (1+) mg/dL (Neg-Trace)
[2024-10-27 10:39] LABS: Basophils Absolute Auto 0.1 X10*3/uL (0.0-0.2); Basophils Percent Auto 1.5 % (0-2); Eosinophils Absolute Auto 0.3 X10*3/uL (0.0-0.4); Eosinophils Percent Auto 4.2 % (0-4); Hematocrit 39.4 % (37.0-47.0); Hemoglobin 13.2 g/dl (12.0-16.0); Imm Gran Abs Auto 0.02 X10*3/uL (0.00-0.03); Imm Gran Pct Auto 0.3 % (0.0-0.4); Lymphocytes Absolute Auto 1.8 X10*3/uL (1.2-4.9); Lymphocytes Percent Auto 29.6 % (20-40); Mean Corpuscular HGB Conc 33.5 g/dl (31.0-35.0); Mean Corpuscular Hemoglobin 31.1 pg (27.0-33.0); Mean Corpuscular Volume 92.9 fL (80.0-98.0); Mean Platelet Volume 11.6 fL (9.4-12.3); Monocytes Absolute Auto 0.6 X10*3/uL (0.1-1.2); Monocytes Percent Auto 8.9 % (2-11); Neutrophils Absolute Auto 3.4 x10*3/uL (2.0-8.3); Neutrophils Percent Auto 55.5 % (45-73); Platelet Count 234 X10*3/uL (160-400); Red Blood Count 4.24 X10*6/uL (4.20-5.50); Red Cell Distribution Width 14.5 % (11.0-16.0); White Blood Count 6.2 X10*3/uL (4.8-10.8)
[2024-10-27 10:39] LABS: Bacteria Urine 4+ (None Seen); Hyaline Casts Urine 0-2 /LPF (0-2); RBC Urine 0-2 /HPF (0-2); Squamous Epithelial Cell Urine 0-2 /HPF (0-2); UACC Culture Trigger YES
[2024-10-27 11:04] LABS: Cholesterol 112 mg/dL (<200); HDL Cholesterol 53 mg/dL (>40); LDL Cholesterol Calculated 46 mg/dL (<100); Triglycerides 65 mg/dL (<150)
[2024-10-27 11:37] LABS: Folate 12.8 ng/mL (> or = 4.0); Vitamin B12 226 pg/mL (200-900)
[2024-10-29 21:23] LABS: Vitamin D 25-OH, D2 <4 ng/mL; Vitamin D 25-OH, D3 37 ng/mL; Vitamin D 25-OH, Total 37 ng/mL (30-100)
== END 2024-10-27 09:39 | disposition home or self-care (01) ==
LOC: HO.LAB 09:38
PROVIDERS: PCP Internal Medicine
DX: Z00.00 Encounter for general adult medical examination without abnormal findings (principal); D64.9 Anemia, unspecified; E11.65 Type 2 diabetes mellitus with hyperglycemia; Z98.890 Other specified postprocedural states
CPT/HCPCS: 36415; 80061; 81001; 82306; 82570; 82607; 82746; 85025; 87086; 87088; 87186

== ENCOUNTER 2024-11-05 09:14 | Day surgery (SDC) | payer OTHER, SELFPAY ==
[2024-08-12 13:39] VITALS: BMI 30.9
--- NOTE | 2024-11-04 09:25 | P.CONAN_ITS ---
Documented by User: Trudy Longo NP 11/04/24 09:29 HPI - Anesthesia Eval Consult details Narrative: 74yo F for Upper Endoscopy and Colonoscopy [place] [facility] [place] s/p NSTEMI and LAD stent 05/2023. Optimized for colo/endo per 05/2024 office visit Anesthesia Pre-Procedure Meds Is the patient on any of the following meds?: GLP1/DPP4 PMFSH Active Problems Active Problems: All Active Problems GERD (gastroesophageal reflux disease) (Acute) Left wrist pain (Acute) Cystitis (Acute) Foul smelling urine (Acute) Dizziness (Acute) Preop cardiovascular exam (Acute) S/P cardiac catheterization (Acute) Breast cancer screening by mammogram (Acute) Anemia (Chronic) Overactive bladder (Acute) Ptosis, right eyelid (Acute) Arthropathy of right shoulder (Acute) Arthritis of glenohumeral joint (Acute) Rotator cuff arthropathy of right shoulder (Acute) Type 2 diabetes mellitus with hyperglycemia (Acute) Hypertension (Acute) Renal cyst (Acute) Headache (Acute) Type 2 diabetes mellitus with hypoglycemia (Acute) Pulmonary nodule (Acute) Pulmonary nodules (Acute) Hiatal hernia (Acute) Hypercholesterolemia (Acute) Coronary artery disease (Acute) Orthopnea (Acute) NSTEMI (non-ST elevated myocardial infarction) (Acute) Osteopenia (Acute) Pleural effusion, right (Acute) Nocturia more than twice per night (Acute) Renal cyst (Acute) Vitamin D deficiency (Acute) Osteoporosis (Acute) Adrenal adenoma (Acute) Obesity (BMI 30-39.9) (Acute) Asthma (Acute) Past Medical History Medical History (Updated 10/29/24 @ 10:45 by Rossy Sethi MD) GERD (gastroesophageal reflux disease) Type 2 diabetes mellitus with hypoglycemia Pulmonary nodules Hiatal hernia Orthopnea Headache Fall NSTEMI (non-ST elevated myocardial infarction) Lower extremity edema HLD (hyperlipidemia) Colon cancer screening Urinary frequency Pleural effusion, right Nocturia more than twice per night Glaucoma Cataract of left eye Renal cyst Right shoulder pain Preop exam for internal medicine On beta kamryn at home Constipation Abdominal bloating Shoulder pain, right Hip pain, left Vitamin D deficiency Osteoporosis Restless leg syndrome Type 2 diabetes mellitus with diabetic polyneuropathy Nasal congestion Chest pain Tubal ligation evaluation Gastroparesis Adrenal adenoma Pulmonary nodule Fracture of toe of left foot Positive MAGGIE (antinuclear antibody) Osteoarthritis of both knees Osteopenia Ulnar neuropathy Asthma Obesity (BMI 30-39.9) Coronary artery disease Hypercholesterolemia Family History Family History Mother HTN (hypertension) Diabetes Brother Lung cancer Sister Cancer, colon Daughter Uterine cancer Father Prostate cancer Family history of problems with anesthesia: No Surgical History Surgical History History of coronary artery stent placement Hx of right cataract extraction History of esophagogastroduodenoscopy (EGD) Hx of colonoscopy History of breast biopsy History of tubal ligation History of laparoscopic cholecystectomy History of Problems with Anesthesia: No Social History Social History Household Members: Spouse Household Members Other:: Granddaughter is INSTRUMENT REPAIRER HELPER lives upstairs Housing: Other Housing Other:: m2 family house Are you a primary patient care provider to a significant other at home: No Do you presently have visiting nurse or other home services: No Alcohol intake: never Patient Tobacco Use Status: Former Tobacco user Tobacco use type: Cigarette e-Cigarette/Vaping Use: Never Used Second Hand Smoke Exposure: Yes Use of substances other than those prescribed or required for medical reasons: No Have you been hit, kicked, punched, or otherwise hurt by someone within the past year? If so, by whom?: No Are you DNR?: No Advance Directives: No Advance Directives Information Provided: Yes Recently lost weight without trying: No Nutrition Risks: No Nutritional Risk Patient : No service: No Current occupational status: retired and disabled Cognitive needs: No Hearing needs: No Vision needs: Yes (glasses) Meds Allergies Allergy/AdvReac Type Severity Reaction Status Date / Time aspirin [Aspirin] Allergy Mild Abdominal Verified 11/05/24 10:07 Pain Penicillins Allergy Mild NAUSEA/STOMACH Verified 11/05/24 10:07 PAIN hydrochlorothiazide Allergy Unknown hypokalemia Verified 11/05/24 10:07 lisinopril Allergy Unknown ? swelling Verified 11/05/24 10:07 Yncawyx-EUW-SmF Reductase Allergy Unknown Muscle Verified 11/05/24 10:07 Inhibitor cramps amlodipine AdvReac Intermediate leg Verified 11/05/24 10:07 swelling ibuprofen [From Motrin] AdvReac Unknown Abdominal Verified 11/05/24 10:07 Pain Home Medications ?Medication ?Instructions ?Recorded ?Confirmed ?Last Taken ?Type brimonidine 0.2 % eye drops drp ophthalmic (eye) 02/15/24 10/21/24 Unknown History latanoprost 0.005 % eye drops drp ophthalmic (eye) 02/15/24 10/21/24 Unknown History neomycin 3.5 mg/g-polymyxin B 1 appl ophthalmic (eye) Q8H 07/14/24 10/21/24 Unknown History 10,000 unit/g-dexameth 0.1 % eye oint netarsudil 0.02 % eye drops drp ophthalmic (eye) 10/20/24 10/21/24 Unknown History (Rhopressa) Exam Height,Weight and Vital Signs: Height 5 ft 2 in Weight 76.657 kg Pertinent Lab Results Pertinent Lab Results: Laboratory Tests 03/30/24 10/27/24 12:56 09:54 WBC 6.2 Hgb 13.2 Hct 39.4 Plt Count 234 Sodium 140 Potassium 4.0 Chloride 107 Carbon Dioxide 25 BUN 8 L Creatinine 0.72 Narrative Narrative: ECHO 2023 Conclusions: - Visually estimated LVEF 50-60%. - The inferolateral wall is hypokinetic. - No obvious valvular pathology seen on this study. No change c/w prior 2022 EKG 05/2024 normal sinus rhythm, no acute ST or T-wave abnormalities, rate 78, QTC 449 millisecond Assessment and Plan Assessment Anesthesia Assessment: Chart Reviewed Final Anesthetic Review Family History of Problems with Anesthesia: No History of Problems with Anesthesia: No Documented by User: Joseph Horn MD 11/05/24 11:30 [facility] Past Medical History Medical History (Updated 10/29/24 @ 10:45 by Rossy Sethi MD) GERD (gastroesophageal reflux disease) Type 2 diabetes mellitus with hypoglycemia Pulmonary nodules Hiatal hernia Orthopnea Headache Fall NSTEMI (non-ST elevated myocardial infarction) Lower extremity edema HLD (hyperlipidemia) Colon cancer screening Urinary frequency Pleural effusion, right Nocturia more than twice per night Glaucoma Cataract of left eye Renal cyst Right shoulder pain Preop exam for internal medicine On beta kamryn at home Constipation Abdominal bloating Shoulder pain, right Hip pain, left Vitamin D deficiency Osteoporosis Restless leg syndrome Type 2 diabetes mellitus with diabetic polyneuropathy Nasal congestion Chest pain Tubal ligation evaluation Gastroparesis Adrenal adenoma Pulmonary nodule Fracture of toe of left foot Positive MAGGIE (antinuclear antibody) Osteoarthritis of both knees Osteopenia Ulnar neuropathy Asthma Obesity (BMI 30-39.9) Coronary artery disease Hypercholesterolemia Family History Family History Mother HTN (hypertension) Diabetes Brother Lung cancer Sister Cancer, colon Daughter Uterine cancer Father Prostate cancer Surgical History Surgical History History of coronary artery stent placement Hx of right cataract extraction History of esophagogastroduodenoscopy (EGD) Hx of colonoscopy History of breast biopsy History of tubal ligation History of laparoscopic cholecystectomy Social History Social History Household Members: Spouse Household Members Other:: Granddaughter is INSTRUMENT REPAIRER HELPER lives upstairs Housing: Other Housing Other:: m2 family house Are you a primary patient care provider to a significant other at home: No Do you presently have visiting nurse or other home services: No Alcohol intake: never Patient Tobacco Use Status: Former Tobacco user Tobacco use type: Cigarette e-Cigarette/Vaping Use: Never Used Second Hand Smoke Exposure: Yes Use of substances other than those prescribed or required for medical reasons: No Have you been hit, kicked, punched, or otherwise hurt by someone within the past year? If so, by whom?: No Are you DNR?: No Advance Directives: No Advance Directives Information Provided: Yes Recently lost weight without trying: No Nutrition Risks: No Nutritional Risk Patient : No service: No Current occupational status: retired and disabled Cognitive needs: No Hearing needs: No Vision needs: Yes (glasses) Meds Allergies Allergy/AdvReac Type Severity Reaction Status Date / Time aspirin [Aspirin] Allergy Mild Abdominal Verified 11/05/24 10:07 Pain Penicillins Allergy Mild NAUSEA/STOMACH Verified 11/05/24 10:07 PAIN hydrochlorothiazide Allergy Unknown hypokalemia Verified 11/05/24 10:07 lisinopril Allergy Unknown ? swelling Verified 11/05/24 10:07 Qkahupx-FIQ-IoB Reductase Allergy Unknown Muscle Verified 11/05/24 10:07 Inhibitor cramps amlodipine AdvReac Intermediate leg Verified 11/05/24 10:07 swelling ibuprofen [From Motrin] AdvReac Unknown Abdominal Verified 11/05/24 10:07 Pain Home Medications ?Medication ?Instructions ?Recorded ?Confirmed ?Last Taken ?Type brimonidine 0.2 % eye drops drp ophthalmic (eye) 02/15/24 10/21/24 Unknown History latanoprost 0.005 % eye drops drp ophthalmic (eye) 02/15/24 10/21/24 Unknown History neomycin 3.5 mg/g-polymyxin B 1 appl ophthalmic (eye) Q8H 07/14/24 10/21/24 Unknown History 10,000 unit/g-dexameth 0.1 % eye oint netarsudil 0.02 % eye drops drp ophthalmic (eye) 10/20/24 10/21/24 Unknown History (Rhopressa) Exam Airway Mallampati Class: II TM Dist: >3cm Partial: Upper Assessment and Plan Assessment Anesthesia Assessment: Anesthesia Plan Discussed Final Anesthetic Review NPO: Yes ASA Class: III Final Preanesthetic Review: No Changes in Pt Med Stat, Meds/Allgs Chart Reviewed, Consent Obtained/Reviewed, Anes Risks/Benef Reviewed and DNR Form (If Appl.) Patient Risk: Intermediate Procedure Risk: Low Anesthetic Plan Anesthetic Plan: TIVA Disposition: Standard PACU
--- NOTE | 2024-11-05 10:01 | MHC.SHP ---
Pre-Procedural Eval Section A - 24 Hr Update-Section A only Date of Service: 11/05/24 Section B - Complete if H&P > 30 days Chief Complaint: anemia,gerd, Relevant Family History (Specify if Yes): No Relevant Social History: None Present Medications: see Short Stay Collaborative assessment Medical History: Significant History (Type 2 diabetes mellitus with hypoglycemia Pulmonary nodules Hiatal hernia Orthopnea Headache Fall NSTEMI (non-ST elevated myocardial infarction) Lower extremity edema HLD (hyperlipidemia) Colon cancer screening Urinary frequency Pleural effusion, right Nocturia more than twice per night Glaucoma Ca) History of Previous Operations: Relevant previous surgery/procedure and date(s) (History of coronary artery stent placement Hx of right cataract extraction History of esophagogastroduodenoscopy (EGD) Hx of colonoscopy History of breast biopsy History of tubal ligation History of laparoscopic cholecystectomy) Allergies: Allergies Allergy/AdvReac Type Severity Reaction Status Date / Time aspirin [Aspirin] Allergy Mild Abdominal Verified 10/21/24 09:33 Pain Penicillins Allergy Mild NAUSEA/STOMACH Verified 10/21/24 09:33 PAIN hydrochlorothiazide Allergy Unknown hypokalemia Verified 10/21/24 09:33 lisinopril Allergy Unknown ? swelling Verified 10/21/24 09:33 Kmwxcon-UQS-XfB Reductase Allergy Unknown Muscle Verified 10/21/24 09:33 Inhibitor cramps amlodipine AdvReac Intermediate leg Verified 10/21/24 09:33 swelling ibuprofen [From Motrin] AdvReac Unknown Abdominal Verified 10/21/24 09:33 Pain Review of Systems Sugical H&P ROS: Negative: Constitution, Cardiovascular, Respiratory, Neurological, Psychiatric, Hem-Onc, Allergic/Immunologic, Gastrointestinal, Genitourinary, Musculoskeletal, Integumentary, Endocrine and Eyes/Ears/Nose/Throat Exam Surgical H&P Exam: Normal: HEENT, Normal: Heart, Normal: Lungs, Normal: Extremities, Normal: Abdomen, Normal: Skin and Normal: Neurological Plan Diagnosis/Plan: Unchanged I have reviewed the history and physical and performed a pertinent physical examination on my patient. No changes have occurred unless specified. Time Spent With Patient Time: Total time managing care of this patient today ____ minutes.
[2024-11-05 10:09] VITALS: BP 143/59; PULSE 70; RESP 14; TEMP 36.7; O2SAT 97
[2024-11-05 10:15] LABS: Glucose, Whole Blood 192 mg/dL (60-115)
[2024-11-05] MEDS: Lactated Ringers 1,000 ML 100 ML IVCONT (10:32)
--- NOTE | 2024-11-05 10:57 | HO.OPN-COLON ---
Colonoscopy Operative Note Operative Note Date of Service: 11/05/24 Narrative: Operative Information Procedure Description: EGD, Colonoscopy Indication: GERD Anesthesia: MAC FLEXIBLE TRANSORAL UPPER GASTROINTESTINAL ENDOSCOPY AND COLONOSCOPY PROCEDURE NOTE UPPER ENDOSCOPY Consent: Indications for the procedure and potential complications of bleeding, perforation, reaction to medications and missed diagnosis were discussed with the patient and informed consent was obtained. Instrument: Olympus GIF H 190 J mid size upper endoscope Monitoring: Vital signs and clinical assessment, continuous EKG monitoring, Pulse oximetry, Carbon Dioxide monitoring and blood pressure monitoring were done throughout the procedure. Procedure: The patient was placed in the left lateral decubitis position and pre-procedure medications were administered and a bite block was placed. The endoscope was inserted into the mouth and advanced under direct vision to the third part of duodenum. A careful inspection was made as the upper endoscope was withdrawn including a retroflexed examination of the proximal stomach; Findings and interventions are described below. Findings: Larynx:normal Esophagus: GE junction at 30 cm, diaphragm hiatus at 34 cm, schatzki ring noted with 4 cm fixed hiatal hernia Stomach: mild erythema Biopsies were obtained. Grade 2 flap valve on retroflexed examination of the cardia. Duodenum: Normal bulb and descending duodenum, Intervention: Biopsies as noted above, COLONOSCOPY Instrument: Olympus variable stiffness pediatric scope 190L Colonoscopy Monitoring: Vital signs and clinical assessment, continuous EKG monitoring, Pulse oximetry, Carbon Dioxide monitoring and blood pressure monitoring were done throughout the procedure. Colon withdrawal time was 12 minutes. Procedure: The patient was placed in the left lateral decubitis position and pre-procedure medications were administered. After a digital rectal examination of the ano-rectum, the video colonoscope was inserted into the rectum and advanced through the colon to the cecum/TI. The colonoscope was slowly withdrawn in a retrograde panoramic fashion and the colon mucosa was carefully examined including a retroflexed view of the rectum. Findings and interventions are described below. Procedure Difficulty:moderate Findings: Terminal Ileum-normal Cecum:normal Ascending Colon: normal Transverse Colon -normal Descending Colon:normal Sigmoid Colon: moderate diverticulosis, at the rectosigmoid junction edematous tissue noted and bx taken Rectum: Retroflexion with medium sized internal hemorrhoids, grade II Anorectum - normal Colon preparation: [place] Bowel Preparation Scale Right colon; 2 Transverse colon: 2 Left colon; 2 (0 = Unprepared colon segment with mucosa not seen due to solid stool that cannot be cleared. 1 = Portion of mucosa of the colon segment seen, but other areas of the colon segment not well seen due to staining, residual stool and/or opaque liquid. 2 = Minor amount of residual staining, small fragments of stool and/or opaque liquid, but mucosa of colon segment seen well. 3 = Entire mucosa of colon segment seen well with no residual staining, small fragments of stool or opaque liquid) Impression and Post Procedure Diagnosis: Endoscopy Findings: hiatal hernia schatzki ring Colonoscopy Findings: diverticulosis internal hemorrhoids Plan: Await Pathology results Repeat Colonoscopy in 10 years if health allows or earlier if clinically indicated High fiber diet leaflet avoid straining at stool, epsom salts and sitz bath, anusol supps or cream reflux precautions Above findings were reviewed with the patient and relevant handouts were provided if indicated.
[2024-11-05 11:26] VITALS: BP 95/50; PULSE 68; RESP 18; TEMP 36.1; O2SAT 99
[2024-11-05 11:41] VITALS: BP 117/57; PULSE 71; RESP 18; O2SAT 99
[2024-11-05 11:54] VITALS: BP 124/63; PULSE 62; RESP 20; TEMP 36.3; O2SAT 99
== END 2024-11-05 12:09 | disposition home or self-care (01) ==
PROVIDERS: PCP Internal Medicine; Visit Provider Internal Medicine Gastroenterology
PROC: (CPT 45380; principal; 2024-11-05 11:00)
DX: K22.2 Esophageal obstruction (principal); K44.9 Diaphragmatic hernia without obstruction or gangrene; K21.9 Gastro-esophageal reflux disease without esophagitis; D64.9 Anemia, unspecified; K57.30 Diverticulosis of large intestine without perforation or abscess without bleeding; K64.1 Second degree hemorrhoids; E11.9 Type 2 diabetes mellitus without complications; E78.00 Pure hypercholesterolemia, unspecified; J45.909 Unspecified asthma, uncomplicated; Z87.891 Personal history of nicotine dependence; Z79.82 Long term (current) use of aspirin; Z79.4 Long term (current) use of insulin; Z79.02 Long term (current) use of antithrombotics/antiplatelets; Z79.899 Other long term (current) drug therapy
CPT/HCPCS: 45380; 43239; 82947; 88305; 88313; 88342; J2003; J2704

== ENCOUNTER → 2024-11-05 09:14 | Outpatient (BNV) | payer OTHER, SELFPAY | PROVIDERS: PCP Internal Medicine; Visit Provider Internal Medicine Gastroenterology | DX: D64.9 Anemia, unspecified (principal); K21.9 Gastro-esophageal reflux disease without esophagitis; K22.2 Esophageal obstruction; K57.30 Diverticulosis of large intestine without perforation or abscess without bleeding; K64.1 Second degree hemorrhoids | CPT/HCPCS: 43239; 45380 ==

== ENCOUNTER 2024-11-07 11:17 | Outpatient (AMB) | payer OTHER, SELFPAY ==
--- NOTE | 2024-11-07 11:23 | A.OFFVIS_ITS ---
Vital Signs 11/07/24 11:24 Height 5 ft 2 in Weight 169 lb 12.095 oz BMI 31.0 BP 118/78 Blood Pressure Location Rt brachial Position Sitting Pulse 57 Pulse Source Pulse Oximeter Pulse Oximetry (%) 99 Intake Visit Reasons: Type II diabetes-confirmed Intake Note: Patient presents today for a follow-up on Type 2 Diabetes Mellitus: Last Diabetic eye exam was on: 07/02/2024 Last Podiatry exam was on: Patient does not see a Hospice Manager Most recent HbA1c: 8.5%, 10/21/2024 Random Glucose- 265 mg/dL, Today Chemical Dependency Professional Required: Yes Chemical Dependency Professional Language: Rn Unit Manager Services: Chemical Dependency Professional Offered & Declined Accompanied by: Daughter Allergies aspirin [Aspirin] Allergy (Mild, Verified 11/07/24 11:32) Abdominal Pain Penicillins Allergy (Mild, Verified 11/07/24 11:32) NAUSEA/STOMACH PAIN hydrochlorothiazide Allergy (Unknown, Verified 11/07/24 11:32) hypokalemia lisinopril Allergy (Unknown, Verified 11/07/24 11:32) ? swelling Olrintc-CCN-VyW Reductase Inhibitor Allergy (Unknown, Verified 11/07/24 11:32) Muscle cramps amlodipine Adverse Reaction (Intermediate, Verified 11/07/24 11:32) leg swelling ibuprofen [From Motrin] Adverse Reaction (Unknown, Verified 11/07/24 11:32) Abdominal Pain HPI Comments Details: This is a 74-year-old female with a past medical history of coronary artery disease, type 2 diabetes, hyperlipidemia, osteopenia, adrenal adenoma, osteoporosis and hypertension presenting for diabetic management. Her daughter, Roya, provides history and interpretation. They declined video interpreter translator. She has not been using Dexcom because Roya doesn't know how to place it on her today. They don't have her reader with her or a sensor. Hemoglobin a1c 7% 07/29/2024. Hemoglobin A1c 8.5 % to 2/11/25. Current medication regimen: Insulin glargine 14 units at bedtime, Mounjaro 7.5 mg weekly, metformin 1000 mg twice daily. Compliance issues: none Hypoglycemia symptoms: none Hyperglycemia symptoms: none Eye exam: 07/02/24 Microvascular complications: neuropathy. Neuropathy has been bothering her more during the night. Endorses burning and numbness in the bottoms of the feet. Macrovascular complications: CAD Hypertension: treated with losartan 100 mg, metoprolol 100 mg twice a day, Lasix 20 mg. Hyperlipidemia: treated with Rosuvastatin 20 mg. ROS: Constitutional: No unexplained weight loss, fever, chills, fatigue. Eyes: No vision change Gastrointestinal: No anorexia, nausea, vomiting or diarrhea. No abdominal pain Skin: No open wounds or rashes. Physical exam: Constitutional: Alert, in no distress. Neck: Supple, Full range of motion. No lymphadenopathy. No palpable thyroid masses. Respiratory: Clear to auscultation. Cardiovascular: S1 S2 regular. No murmurs. [facility] Medical History (Updated 11/07/24 @ 12:42 by LEOBARDO Smith) Diabetic neuropathy GERD (gastroesophageal reflux disease) Type 2 diabetes mellitus with hypoglycemia Pulmonary nodules Hiatal hernia Orthopnea Headache Fall NSTEMI (non-ST elevated myocardial infarction) Lower extremity edema HLD (hyperlipidemia) Colon cancer screening Urinary frequency Pleural effusion, right Nocturia more than twice per night Glaucoma Cataract of left eye Renal cyst Right shoulder pain Preop exam for internal medicine On beta kamryn at home Constipation Abdominal bloating Shoulder pain, right Hip pain, left Vitamin D deficiency Osteoporosis Restless leg syndrome Type 2 diabetes mellitus with diabetic polyneuropathy Nasal congestion Chest pain Tubal ligation evaluation Gastroparesis Adrenal adenoma Pulmonary nodule Fracture of toe of left foot Positive MAGGIE (antinuclear antibody) Osteoarthritis of both knees Osteopenia Ulnar neuropathy Asthma Obesity (BMI 30-39.9) Coronary artery disease Hypercholesterolemia Surgical History History of coronary artery stent placement Hx of right cataract extraction History of esophagogastroduodenoscopy (EGD) Hx of colonoscopy History of breast biopsy History of tubal ligation History of laparoscopic cholecystectomy Family History Mother HTN (hypertension) Diabetes Brother Lung cancer Sister Cancer, colon Daughter Uterine cancer Father Prostate cancer Social History Household Members: Spouse Household Members Other:: Granddaughter is BAND SALVAGER lives upstairs Housing: Other Housing Other:: m2 family house Are you a primary resident caregiver to a significant other at home: No Do you presently have visiting nurse or other home services: No Alcohol intake: never Patient Tobacco Use Status: Former Tobacco user Tobacco use type: Cigarette e-Cigarette/Vaping Use: Never Used Second Hand Smoke Exposure: Yes service: No Current occupational status: retired and disabled Cognitive needs: No Hearing needs: No Vision needs: Yes (glasses) Physical Exam Vital Signs: Last Vital Signs Pulse 57 11/07/24 11:24 BP 118/78 11/07/24 11:24 Pulse Ox 99 11/07/24 11:24 BMI result Body Mass Index 31.0 Results Reviewed Results Reviewed: Laboratory Last Values Glucose (Clinic) 265 mg/dL (60-115) H 11/07/24 11:28 Laboratory Tests 12/07/23 12/07/23 03/30/24 09:18 09:20 12:56 Creatinine 0.72 Estimated GFR > 60 Hemoglobin A1c % 7.7 H ALT 16 Alkaline Phosphatase 71 Triglycerides 68 Cholesterol 110 LDL Cholesterol, Calc 46 HDL Cholesterol 51 TSH 2.52 Free T4 0.93 Urine Creatinine 73.93 Urine Microalbumin 9.0 Microalb/Creat Ratio 12.1 Assessment & Plan Assessment & Plan (1) Type 2 diabetes mellitus with hypoglycemia: Code(s): E11.649 - Type 2 diabetes mellitus with hypoglycemia without coma Category: Medical Qualifiers: Diabetes mellitus mcc insulin use: with manager terminal use Diabetes mellitus complication detail: without coma Qualified Code(s): E11.649 - Type 2 diabetes mellitus with hypoglycemia without coma; Z79.4 - [facility] (current) use of insulin (2) Diabetic neuropathy: Code(s): E11.40 - Type 2 diabetes mellitus with diabetic neuropathy, unspecified Category: Medical Plan In summary this is a 74-year-old female with uncontrolled type 2 diabetes. Discussed pathophysiology of Type II Diabetes Mellitus with the patient in detail.? I explained the mcc risks and complications associated with uncontrolled diabetes including nephropathy, neuropathy, peripheral vascular disease, retinopathy, increased risk of heart disease and stroke.? Lifestyle modification, diabetic diet reviewed with the patient and her daughter. Increase Mounjaro to 10 mg weekly. Continue Lantus 14 units daily for now. Continue metformin 1000 mg twice a day. Reviewed treatment of hypoglycemia. Patient says she has glucose tablets at home. Start gabapentin 100 mg at bedtime for neuropathy. Reviewed side effects including fluid retention, drowsiness, dizziness, fall risk. I explained that the dose may need to be increased based on response and tolerability. Next available follow up with clinical trial educator for CGM placement and Education. They were told to bring sensors and reader to the appointment. Follow up in 1 month with me for type 2 diabetes. Medications: New gabapentin 100 mg PO BEDTIME 90 caps 0RF tirzepatide (Mounjaro) 10 mg (0.5 mL) subcut QWEEK 2 mL 2RF Discontinued tirzepatide (Mounjaro) Discontinued Reason: Doctor's Order 7.5 mg (0.5 mL) subcut QWEEK 2 mL 5RF Patient Instructions: Increase Mounjaro to 10 mg weekly Continue Lantus 14 units nightly Continue Metformin 1000 mg twice daily Start Gabapentin 100 mg at bedtime Aumentar Mounjaro a 10 mg semanales Continuar Lantus 14 unidades todas las noches. Continuar con metformina 1000 mg dos veces al d?a. Comience con gabapentina 100 mg antes de acostarse. Coding Level of Care Code Est Pt Level 4 (68515) Complex EM visit Add On G2211 Diagnoses Type 2 diabetes mellitus with hypoglycemia without coma, with long-term current use of insulin E11.649; Z79.4 Diabetes mellitus mcc insulin use: with mcc use Diabetes mellitus complication detail: without coma Diabetic neuropathy E11.40
[2024-11-07 11:24] VITALS: BP 118/78; PULSE 57; O2SAT 99; BMI 31.0
[2024-11-07 11:37] LABS: Glucose, Whole Blood 265 mg/dL (60-115)
--- OUTSIDE RECORDS SUMMARY | 2024-11-07 13:23 | XMS_ITS | Clinical Summary ---
Author Organization [facility] ity Address [address] [place] [address] Care Team Providers Care It Program Engagement Director Name Role Phone Junior Zayas MD Primary Care Provider [phone] Social History Tobacco Use Types Packs/Day Years Used Date Smoking Tobacco: Never Assessed Comments Unknown Sex and Gender Information Value Date Recorded Sex Assigned at Not on file Legal Sex Female 3:01 AM EST Gender Identity Not on file Sexual Orientation Not on file Plan of Treatment Health Maintenance Due Date Last Done Comments Diabetes: Annual GFR (Glomer ular Filtration Rate) 1948 Diabetes: Annual Foot Exam 1958 Diabetes: Annual Retina Eye Exam 1958 DTaP,Tdap,and Td Vaccines (1 - Tdap) 1967 Pneumococcal Vaccine: 50+ Ye ars (1 of [...] age to complete this topic Care Teams It Program Engagement Director Relationship Specialty Start Date End Date Junior Zayas MD [address] [place] [address] [address] [facility] [place] [address] PCP - General 05/18/16
--- OUTSIDE RECORDS SUMMARY | 2024-11-07 13:23 | XMS_ITS | Continuity of Care Document ---
Author Organization [facility] Address [address] [address] Phone Care Team Providers Care Supervisor Electron Tube Processing Name Role Phone [place] Amy KNIGHT Unavailable Unavailable Advance Directives Directive Yes / No Effective Date File Name No Information Encounters Encounter Description Practice Location Reason(s) For Visit Diagnoses Date Provider [facility], [address] [address], [place], [place], [id number], tel:[phone] No Information [address] [place], [address]. tel:[phone] Family History Family Member Type Diagnosis Age [...]
== END 2024-11-07 12:13 | disposition home or self-care (01) ==
PROVIDERS: PCP Internal Medicine; Visit Provider Physician Assistant Medical
DX: E11.649 Type 2 diabetes mellitus with hypoglycemia without coma (principal); Z79.4 Long term (current) use of insulin; E11.40 Type 2 diabetes mellitus with diabetic neuropathy, unspecified

== ENCOUNTER → 2024-11-07 11:17 | Outpatient (BNVA) | payer OTHER, SELFPAY | PROVIDERS: PCP Internal Medicine; Visit Provider Physician Assistant Medical | DX: E11.649 Type 2 diabetes mellitus with hypoglycemia without coma (principal); E11.40 Type 2 diabetes mellitus with diabetic neuropathy, unspecified; Z79.4 Long term (current) use of insulin | CPT/HCPCS: 82947; 99212 ==

== ENCOUNTER 2024-11-19 09:33 | Outpatient (AMB) | payer OTHER, SELFPAY ==
--- NOTE | 2024-11-19 09:34 | MHC.OFFVIS ---
Vital Signs 11/19/24 09:47 Height 5 ft 2 in Weight 167 lb 1.766 oz BMI 30.6 BP 134/62 Blood Pressure Location Rt brachial Position Sitting Pulse 84 Pulse Source Pulse Oximeter Pulse Oximetry (%) 98 Oxygen Delivery Method Room Air Intake Visit Reasons: S/P double; Dr. Campuzano Intake Note: ESTABLISHED PATIENT for s/p double w/ TH Chief Complaint; C/O persistent reflux, N+V. No additional concerns at this time. Absorption Plant Operator Required: Yes Absorption Plant Operator Services: Absorption Plant Operator Present Absorption Plant Operator Name: GI LM Information Interpreted: clinical only Accompanied by: Daughter Allergies aspirin [Aspirin] Allergy (Mild, Verified 11/24/24 15:36) Abdominal Pain Penicillins Allergy (Mild, Verified 11/24/24 15:36) NAUSEA/STOMACH PAIN hydrochlorothiazide Allergy (Unknown, Verified 11/24/24 15:36) hypokalemia lisinopril Allergy (Unknown, Verified 11/24/24 15:36) ? swelling Pvlawtk-CPZ-VwD Reductase Inhibitor Allergy (Unknown, Verified 11/24/24 15:36) Muscle cramps amlodipine Adverse Reaction (Intermediate, Verified 11/24/24 15:36) leg swelling ibuprofen [From Motrin] Adverse Reaction (Unknown, Verified 11/24/24 15:36) Abdominal Pain HPI HPI S/P double; Dr. Campuzano: Details: LAST VISIT Anemia Abdominal bloating Constipation GERD (gastroesophageal reflux disease) Gastroparesis Screen for colon cancer Plan Continue pantoprazole. Patient is going for upper endoscopy to rule out gastritis, esophagitis, Sanchez's, H pylori, duodenitis. What to expect before during and after procedure discussed with patient. Stressed the importance of clear liquid diet and good bowel prep day before procedure. Patient will hold Mounjaro. She is taking it on Sunday. She will take her last dose on the and will hold the dose on . Procedure is on of this month. Patient denies any cardiac or respiratory symptoms. No longer on Plavix. Patient is taking aspirin daily. Appointment for follow-up after procedure already made. Patient denies any GI concerning symptoms today. Both patient and her daughter are agreeable to plan of care and verbalizes understanding of instructions. They were given the opportunity to ask questions and all questions answered. ? Thank you for allowing me to participate in her care Medications Discontinued clopidogrel Discontinued Reason: Patient no longer taking 75 mg PO DAILY 30 tabs 0RF UPPER ENDOSCOPY AND COLONOSCOPY Findings: Larynx:normal Esophagus: GE junction at 30 cm, diaphragm hiatus at 34 cm, schatzki ring noted with 4 cm fixed hiatal hernia Stomach: mild erythema Biopsies were obtained. Grade 2 flap valve on retroflexed examination of the cardia. Duodenum: Normal bulb and descending duodenum, Intervention: Biopsies as noted above, COLONOSCOPY Instrument: Olympus variable stiffness pediatric scope 190L Colonoscopy Monitoring: Vital signs and clinical assessment, continuous EKG monitoring, Pulse oximetry, Carbon Dioxide monitoring and blood pressure monitoring were done throughout the procedure. Colon withdrawal time was 12 minutes. Procedure: The patient was placed in the left lateral decubitis position and pre-procedure medications were administered. After a digital rectal examination of the ano-rectum, the video colonoscope was inserted into the rectum and advanced through the colon to the cecum/TI. The colonoscope was slowly withdrawn in a retrograde panoramic fashion and the colon mucosa was carefully examined including a retroflexed view of the rectum. Findings and interventions are described below. Procedure Difficulty:moderate Findings: Terminal Ileum-normal Cecum:normal Ascending Colon: normal Transverse Colon -normal Descending Colon:normal Sigmoid Colon: moderate diverticulosis, at the rectosigmoid junction edematous tissue noted and bx taken Rectum: Retroflexion with medium sized internal hemorrhoids, grade II Anorectum - normal Colon preparation: Campus Bowel Preparation Scale Right colon; 2 Transverse colon: 2 Left colon; 2 (0 = Unprepared colon segment with mucosa not seen due to solid stool that cannot be cleared. 1 = Portion of mucosa of the colon segment seen, but other areas of the colon segment not well seen due to staining, residual stool and/or opaque liquid. 2 = Minor amount of residual staining, small fragments of stool and/or opaque liquid, but mucosa of colon segment seen well. 3 = Entire mucosa of colon segment seen well with no residual staining, small fragments of stool or opaque liquid) Impression and Post Procedure Diagnosis: Endoscopy Findings: hiatal hernia schatzki ring Colonoscopy Findings: diverticulosis internal hemorrhoids Plan: Await Pathology results Repeat Colonoscopy in 10 years if health allows or earlier if clinically indicated High fiber diet leaflet avoid straining at stool, epsom salts and sitz bath, anusol supps or cream reflux precautions PATHOLOGY RESULTS Diagnosis A. Stomach, biopsy: Oxyntic mucosa with mild chronic inactive inflammation; no Helicobacter organisms seen. B. Colon, rectosigmoid, biopsy: Colonic mucosa within normal limits TODAY'S VISIT Patient is here today for follow-up. Patient reports that she has been doing fairly well since last visit, occasional nausea and vomiting depending on what she eats. Patient had mild chronic inactive inflammation in her stomach without H pylori. Normal colonic mucosa on colonoscopy. Colonoscopy in 10 years sooner if clinically necessary. Patient denies any ill effects from the prep, anesthesia or procedure itself. Denies melena, hematochezia, denies dyspepsia, dysphagia or odynophagia. [facility] Medical History Diabetic neuropathy GERD (gastroesophageal reflux disease) Type 2 diabetes mellitus with hypoglycemia Pulmonary nodules Hiatal hernia Orthopnea Headache Fall NSTEMI (non-ST elevated myocardial infarction) Lower extremity edema HLD (hyperlipidemia) Colon cancer screening Urinary frequency Pleural effusion, right Nocturia more than twice per night Glaucoma Cataract of left eye Renal cyst Right shoulder pain Preop exam for internal medicine On beta kamryn at home Constipation Abdominal bloating Shoulder pain, right Hip pain, left Vitamin D deficiency Osteoporosis Restless leg syndrome Type 2 diabetes mellitus with diabetic polyneuropathy Nasal congestion Chest pain Tubal ligation evaluation Gastroparesis Adrenal adenoma Pulmonary nodule Fracture of toe of left foot Positive MAGGIE (antinuclear antibody) Osteoarthritis of both knees Osteopenia Ulnar neuropathy Asthma Obesity (BMI 30-39.9) Coronary artery disease Hypercholesterolemia Surgical History History of coronary artery stent placement Hx of right cataract extraction History of esophagogastroduodenoscopy (EGD) Hx of colonoscopy History of breast biopsy History of tubal ligation History of laparoscopic cholecystectomy Family History Mother HTN (hypertension) Diabetes Brother Lung cancer Sister Cancer, colon Daughter Uterine cancer Father Prostate cancer Social History Household Members: Spouse Household Members Other:: Granddaughter is REGISTRATION OFFICER lives upstairs Housing: Other Housing Other:: m2 family house Are you a primary manager home healthcare to a significant other at home: No Do you presently have visiting nurse or other home services: No Alcohol intake: never Patient Tobacco Use Status: Former Tobacco user Tobacco use type: Cigarette e-Cigarette/Vaping Use: Never Used Second Hand Smoke Exposure: Yes service: No Current occupational status: retired and disabled Cognitive needs: No Hearing needs: No Vision needs: Yes (glasses) Review of Systems Const Denies weight gain and Denies weight loss ENT Reports no additional complaints, Denies dysphagia and Denies odynophagia Card Reports no additional complaints Resp Reports no additional complaints GI Denies abdominal pain, Denies belching, Denies melena, Denies bloating, Denies change in bowel habits, Denies dysphagia, Denies excessive flatus, Denies dyspepsia, Reports heartburn, Denies diarrhea, Denies loose stools, Reports nausea, Denies odynophagia and Denies vomiting Reports no additional complaints Musc Reports no additional complaints Neuro Reports no additional complaints Psych Reports no additional complaints Endo Reports no additional complaints Physical Exam Vital Signs: Last Vital Signs Pulse 84 11/19/24 09:47 BP 134/62 11/19/24 09:47 Pulse Ox 98 11/19/24 09:47 Oxygen Delivery Method Room Air 11/19/24 09:47 BMI result Body Mass Index 30.6 Const General: healthy appearing and no acute distress Nutritional Appearance: obese Orientation/consciousness: patient oriented x3 Resp Effort & Inspection: normal respiratory effort, able to speak in complete sentences, no tracheal deviation and symmetric chest movement Auscultation: clear to auscultation bilaterally Cardio Rate: regular rate GI Inspection: Yes normal to inspection, No distended and Yes obesity Palpation (GI): Soft to palpation, not firm, nontender and No hepatosplenomegaly present Auscultation: normal bowel sounds General: Yes no CVA tenderness Back/Spine/Pelvis Back: no CVA tenderness Skin General skin exam: elasticity normal, turgor normal and dry skin Neuro General: patient oriented x3 Psych Appearance: grossly normal Mental Status: mental status grossly normal Assessment & Plan Assessment & Plan (1) Left wrist pain: Code(s): M25.532 - Pain in left wrist Category: Medical (2) Anemia: Code(s): D64.9 - Anemia, unspecified Category: Medical Qualifiers: Anemia type: unspecified type Qualified Code(s): D64.9 - Anemia, unspecified (3) GERD (gastroesophageal reflux disease): Code(s): K21.9 - Gastro-esophageal reflux disease without esophagitis Category: Medical Qualifiers: Esophagitis presence: without esophagitis Qualified Code(s): K21.9 - Gastro-esophageal reflux disease without esophagitis (4) Screen for colon cancer: Code(s): Z12.11 - Encounter for screening for malignant neoplasm of colon Plan Will change pantoprazole to once a day. Avoid dietary triggers family and snacking. Patient is on Mounjaro which probably contributing to her having mild gastroparesis.. Patient was encouraged to eat smaller meals more often. Reports occasional white phlegm coming out without nausea or vomiting. For the most part patient reports that her reflux is controlled. Patient reports that she is moving her bowels without any issues. Patient is complaining of left wrist pain, seen PCP last month, referral was not sent. Will send a referral for patient. Patient will follow-up in the office in 3 months. I will send her for blood work. Patient is agreeable to plan of care and verbalizes understanding of instructions. She was given the opportunity to ask questions and all questions answered. Thank you for allowing me to participate in her care Orders: Orders Comprehensive Met. Panel 11/20/24 K21.9 - Gastro-esophageal reflux disease without esophagitis Referrals Orthopedics Referral M25.532 - Pain in left wrist Medications: Changed From pantoprazole 40 mg PO BID 56 tabs 0RF To pantoprazole 40 mg PO DAILY 90 tabs 2RF Coding Level of Care Code Est Pt Level 4 (50922) Complex EM visit Add On G2211 Diagnoses Left wrist pain M25.532 Anemia D64.9 Anemia type: unspecified type Gastroesophageal reflux disease without esophagitis K21.9 Esophagitis presence: without esophagitis Screen for colon cancer Z12.11 Time Spent (min) 40 Comment 25 minutes spent with patient and additional 15 minutes spent reviewing her records
[2024-11-19 09:47] VITALS: BP 134/62; PULSE 84; O2SAT 98; BMI 30.6
--- OUTSIDE RECORDS SUMMARY | 2024-11-19 10:26 | XMS_ITS | Clinical Summary ---
Author Organization [facility] ity Address [address] [place] [address] Care Team Providers Care Construction Driller Name Role Phone Junior Zayas MD Primary Care Provider [phone] Social History Tobacco Use Types Packs/Day Years [...] age to complete this topic Care Teams Construction Driller Relationship Specialty Start Date End Date Junior Zayas MD [address] [place] [address] [address] [facility] [place] [address] PCP - General 05/18/16
--- OUTSIDE RECORDS SUMMARY | 2024-11-19 10:26 | XMS_ITS | Continuity of Care Document ---
Author Organization [facility] Address [address] [address] Phone Care Team Providers Care Piping Design Specialist Name Role Phone [place] Amy KNIGHT Unavailable Unavailable Advance Directives Directive Yes / No Effective Date File Name No Information Encounters Encounter Description Practice Location Reason(s) For Visit Diagnoses Date Provider [facility], [address] [address], [place], [place], [id number], tel:[phone] No Information [address] [place] [address] [place], [address]. tel:[phone] Family History Family Member Type Diagnosis Age [...]
== END 2024-11-19 10:11 | disposition home or self-care (01) ==
LOC: HO.HGI 09:33
PROVIDERS: PCP Internal Medicine; Visit Provider Nurse Practitioner Family
DX: K21.9 Gastro-esophageal reflux disease without esophagitis (principal); D64.9 Anemia, unspecified
CPT/HCPCS: 99214; G2211

== ENCOUNTER → 2024-11-19 09:33 | Outpatient (BNVA) | payer OTHER, SELFPAY | PROVIDERS: PCP Internal Medicine; Visit Provider Nurse Practitioner Family | DX: Z12.11 Encounter for screening for malignant neoplasm of colon (principal); K21.9 Gastro-esophageal reflux disease without esophagitis; M25.532 Pain in left wrist; D64.9 Anemia, unspecified | CPT/HCPCS: 99212 ==

== ENCOUNTER 2024-11-20 07:37 | Outpatient (REF) | payer OTHER, SELFPAY ==
--- OUTSIDE RECORDS SUMMARY | 2024-11-20 07:42 | XMS_ITS | Clinical Summary ---
Author Organization [facility] ity Address [address] [place] [address] Care Team Providers Care Customer Experience Strategist Name Role Phone Junior Zayas MD Primary Care Provider [phone] Social History Tobacco Use Types Packs/Day Years [...] age to complete this topic Care Teams Customer Experience Strategist Relationship Specialty Start Date End Date Junior Zayas MD [address] [place] [address] [address] [facility] [place] [address] PCP - General 05/18/16
--- OUTSIDE RECORDS SUMMARY | 2024-11-20 07:42 | XMS_ITS | Continuity of Care Document ---
Author Organization [facility] Address [address] [address] Phone Care Team Providers Care Injection Maintenance Technician Name Role Phone [place] Amy KNIGHT Unavailable Unavailable Advance Directives Directive Yes / No Effective Date File Name No Information Encounters Encounter Description Practice Location Reason(s) For Visit Diagnoses Date Provider [facility], [address] [address], [place], [place], [id number], tel:[phone] No Information [address] [place] [address] [place], [address]. tel:[phone] Family History Family Member Type Diagnosis Age [...]
[2024-11-20 08:44] LABS: Appearance Urine Clear; Color Urine Dark Yellow; Glucose Urine UA Negative (Negative); Leukocyte Esterase Urine Moderate (2+) (Negative); Nitrite Urine Negative (Negative); PH 7.5 (5.0-9.0); UMIC TRIGGER UACC YES; Urine Blood Negative (Negative); Urine Ketones Trace mg/dL (Negative); Urine Protein 30 (1+) mg/dL (Neg-Trace)
[2024-11-20 08:47] LABS: Bacteria Urine None Seen (None Seen); Hyaline Casts Urine 0-2 /LPF (0-2); RBC Urine 0-2 /HPF (0-2); UACC Culture Trigger YES
[2024-11-20 09:14] LABS: Alanine Aminotransferase 19 U/L (0-31); Albumin Level 3.7 g/dL (3.5-5.0); Alkaline Phosphatase 77 U/L (39-117); Anion Gap 10 (12-20); Aspartate Amino Transferase 20 U/L (5-31); Bilirubin Total 0.6 mg/dL (0.0-1.0); Blood Urea Nitrogen 13 mg/dL (9-16); Calcium 8.8 mg/dL (8.4-10.2); Carbon Dioxide 26 mmol/L (22-29); Chloride 109 mmol/L (96-108); Estimated Glomerular Filt Rate > 60; Glucose Random 179 mg/dL (60-115); Potassium 4.4 mmol/L (3.3-5.1); Sodium 141 mmol/L (135-145); Total Protein 6.5 g/dL (6.5-8.0)
[2024-11-20 09:40] LABS: Microalbum/Creatinine Ratio Ur 28.9 ug/mg cr (<30)
== END 2024-11-20 07:38 | disposition home or self-care (01) ==
LOC: HO.LAB 07:37
PROVIDERS: Internal Medicine Endocrinology, Diabetes & Metabolism; Physician Assistant Medical; PCP Internal Medicine; Visit Provider Nurse Practitioner Family
DX: E11.9 Type 2 diabetes mellitus without complications (principal); K21.9 Gastro-esophageal reflux disease without esophagitis; R30.0 Dysuria; E11.65 Type 2 diabetes mellitus with hyperglycemia
CPT/HCPCS: 36415; 80053; 81001; 82043; 82570; 87086; 87147

== ENCOUNTER 2024-11-24 15:16 | Outpatient (AMB) | payer OTHER, SELFPAY ==
--- NOTE | 2024-11-24 15:33 | MHC.OFFVIS ---
Vital Signs 11/24/24 15:34 Height 5 ft 2 in Weight 168 lb 13.985 oz BMI 30.9 BP 140/62 H Blood Pressure Location Lt brachial Position Sitting Pulse 93 Pulse Source Pulse Oximeter Intake Visit Reasons: 6m follow up Newsperson Required: No Vice President Of Recruiting: Vice President Of Recruiting Present Allergies aspirin [Aspirin] Allergy (Mild, Verified 11/24/24 15:36) Abdominal Pain Penicillins Allergy (Mild, Verified 11/24/24 15:36) NAUSEA/STOMACH PAIN hydrochlorothiazide Allergy (Unknown, Verified 11/24/24 15:36) hypokalemia lisinopril Allergy (Unknown, Verified 11/24/24 15:36) ? swelling Nmushuq-SSX-MbX Reductase Inhibitor Allergy (Unknown, Verified 11/24/24 15:36) Muscle cramps amlodipine Adverse Reaction (Intermediate, Verified 11/24/24 15:36) leg swelling ibuprofen [From Motrin] Adverse Reaction (Unknown, Verified 11/24/24 15:36) Abdominal Pain Medication List - Last Reconciled 11/24/24 by Nicole Son MICA LAYER-C [Adult pull ups- large As directed] aspirin 81 mg PO DAILY 90 days brimonidine 0.2% drps ophthalmic (eye) cholecalciferol (vitamin D3) 50 mcg PO DAILY cyanocobalamin (vitamin B-12) 1,000 mcg PO DAILY ferrous sulfate 325 mg PO BID fluticasone propion-salmeterol 250-50 mcg/dose (Wixela Inhub) 1 ea PO BID furosemide 20 mg PO DAILY gabapentin 100 mg PO BEDTIME [grab bar for shower As directed] insulin glargine (Lantus Solostar U-100 Insulin) 14 units (0.14 mL) subcut .qhs latanoprost 0.005% drps ophthalmic (eye) losartan 100 mg PO DAILY metformin 1,000 mg (2 x 500 mg) PO BID metoprolol tartrate 100 mg PO BID nebulizers (Altera Nebulizer System) As directed updraft Q 4 hours prn with albuterol neomycin-polymyxin B-dexameth 3.5 mg/g-10,000 unit/g-0.1 % 1 appl ophthalmic (eye) Q8H netarsudil 0.02% (Rhopressa) drps ophthalmic (eye) pantoprazole 40 mg PO DAILY rosuvastatin 20 mg PO DAILY tirzepatide (Mounjaro) 10 mg (0.5 mL) subcut QWEEK tizanidine mg PO BEDTIME [wipes As directed] HPI HPI 6m follow up: Details: Roz is a 74-year-old female with past medical history of hypertension, hyperlipidemia, diabetes, obesity, asthma, CAD, LAD stent who presents for follow-up. Today she reports that she she has been feeling good since her last visit in May. Been having concerning symptoms. A few days ago she felt a quick pain in her right chest that lasted a 2nd and resolved. She has no chest discomfort brought on by physical activity. At times she will notice shortness of breath which she relates to her asthma. No PND, orthopnea or edema. No palpitations, lightheadedness, presyncope, syncope, falls. Takes all meds as directed. Daughter present. She is assisting with German translation at their request. [facility] Medical History Diabetic neuropathy GERD (gastroesophageal reflux disease) Type 2 diabetes mellitus with hypoglycemia Pulmonary nodules Hiatal hernia Orthopnea Headache Fall NSTEMI (non-ST elevated myocardial infarction) Lower extremity edema HLD (hyperlipidemia) Colon cancer screening Urinary frequency Pleural effusion, right Nocturia more than twice per night Glaucoma Cataract of left eye Renal cyst Right shoulder pain Preop exam for internal medicine On beta kamryn at home Constipation Abdominal bloating Shoulder pain, right Hip pain, left Vitamin D deficiency Osteoporosis Restless leg syndrome Type 2 diabetes mellitus with diabetic polyneuropathy Nasal congestion Chest pain Tubal ligation evaluation Gastroparesis Adrenal adenoma Pulmonary nodule Fracture of toe of left foot Positive MAGGIE (antinuclear antibody) Osteoarthritis of both knees Osteopenia Ulnar neuropathy Asthma Obesity (BMI 30-39.9) Coronary artery disease Hypercholesterolemia Surgical History History of coronary artery stent placement Hx of right cataract extraction History of esophagogastroduodenoscopy (EGD) Hx of colonoscopy History of breast biopsy History of tubal ligation History of laparoscopic cholecystectomy Family History Mother HTN (hypertension) Diabetes Brother Lung cancer Sister Cancer, colon Daughter Uterine cancer Father Prostate cancer Social History Household Members: Spouse Household Members Other:: Granddaughter is CHAIRPERSON ANESTHESIOLOGY lives upstairs Housing: Other Housing Other:: m2 family house Are you a primary clinical care leader to a significant other at home: No Do you presently have visiting nurse or other home services: No Alcohol intake: never Patient Tobacco Use Status: Former Tobacco user Tobacco use type: Cigarette e-Cigarette/Vaping Use: Never Used Second Hand Smoke Exposure: Yes service: No Current occupational status: retired and disabled Cognitive needs: No Hearing needs: No Vision needs: Yes (glasses) Review of Systems Const All systems reviewed & are unremarkable except as noted in HPI and below ENT Denies dizziness Card Denies chest pain, Denies chest pain at rest, Denies chest pain with activity, Denies rapid heart rate, Denies pedal edema, Denies edema, Denies leg edema, Denies lightheadedness, Denies palpitations, Denies dyspnea, Denies dyspnea on exertion and Denies orthopnea Resp Denies cough, Denies dyspnea and Denies dyspnea on exertion GI Denies hematochezia and Denies change in stool character Musc Denies abnormal gait, Denies limited range of motion, Denies muscle cramps, Denies muscle weakness, Denies numbness, Denies radiating pain into limb, Denies stiffness and Denies tingling Neuro Denies abnormal gait, Denies dizziness, Denies numbness and Denies tingling Endo Denies palpitations Physical Exam Vital Signs: Last Vital Signs Pulse 93 11/24/24 15:34 BP 140/62 H 11/24/24 15:34 BMI result Body Mass Index 30.9 Const General: cooperative, healthy appearing, comfortable and no acute distress Orientation/consciousness: patient oriented x3 Neck Neck: Yes normal visual inspection Resp Effort & Inspection: normal respiratory effort Auscultation: clear to auscultation bilaterally, no crackles, no rales, no rhonchi and no wheezes Cardio Jugular venous distension: no JVD Rate: regular rate Rhythm: regular rhythm Heart sounds: S1 normal heart sound present, S2 normal heart sound present, no murmurs and no rubs Neuro General: patient oriented x3 Extrem General: Yes normal to inspection, No no pedal edema and No calf tenderness Psych Appearance: grossly normal Mental Status: mental status grossly normal Speech and movement: Normal speech and movement present Assessment & Plan Assessment & Plan (1) Coronary artery disease: Comment: echo normal LV 60-65% June 2019, May 2023 distal LAD drug-eluting stent Code(s): I25.10 - Atherosclerotic heart disease of [place] coronary artery without angina pectoris Category: Medical Qualifiers: Associated angina: without angina Coronary Disease-Associated Artery/Lesion type: [place] artery [place] vs. transplanted heart: [place] heart Qualified Code(s): I25.10 - Atherosclerotic heart disease of [place] coronary artery without angina pectoris Plan: History of NSTEMI 05/2023 when she presented with chest discomfort. Echocardiogram showed EF 65-70%, apical lateral and mid inferior lateral hypokinetic. She was transferred to [facility] and underwent cardiac catheterization showing significant LAD, OM1, ramus stenosis, YVETTE placed to the mid LAD. She has done well since that time and was on dual antiplatelet therapy for 1 year. Last echo 07/09/2024 showed EF 50-60%, inferior lateral wall hypokinetic. Currently no anginal symptoms. Continue aspirin indefinitely. Continue rosuvastatin and Zetia with ideal LDL goal less than 70. Labs done 10/27/2024 showed LDL 46. Continue metoprolol, amlodipine. Cardiology follow-up in 6 months, sooner if needed (2) S/P cardiac catheterization: Comment: 05/11/2023 left main normal, mid LAD 90% stenosis, distal LAD 90% stenosis, 1st OM 99% stenosis, small vessel, RCA mild luminal irregularities, ramus severe disease distal segment, small vessel, YVETTE to the mid LAD Code(s): Z98.890 - Other specified postprocedural states Category: Surgical (3) NSTEMI (non-ST elevated myocardial infarction): Comment: May 2023 distal LAD drug-eluting stent Code(s): I21.4 - Non-ST elevation (NSTEMI) myocardial infarction Category: Medical (4) Hypertension: Code(s): I10 - Essential (primary) hypertension Category: Medical Plan: Mild elevation today however improved on recheck. No med changes made. (5) Hypercholesterolemia: Comment: Patient cannot tolerate statins Code(s): E78.00 - Pure hypercholesterolemia, unspecified Category: Medical Plan: Calcium LDL goal less than 70. Currently well controlled. Continue Zetia and rosuvastatin. Plan Time spent on chart review, documentation, interview and assessment Coding Level of Care Code Est Pt Level 4 (45949) Complex EM visit Add On G2211 Diagnoses Coronary artery disease involving [place] coronary artery of [place] heart without angina pectoris I25.10 Associated angina: without angina Coronary Disease-Associated Artery/Lesion type: [place] artery [place] vs. transplanted heart: [place] heart S/P cardiac catheterization Z98.890 NSTEMI (non-ST elevated myocardial infarction) I21.4 Hypertension I10 Hypercholesterolemia E78.00 Time Spent (min) 28
[2024-11-24 15:34] VITALS: BP 140/62; PULSE 93; BMI 30.9
--- OUTSIDE RECORDS SUMMARY | 2024-11-24 17:46 | XMS_ITS | Clinical Summary ---
Author Organization [facility] ity Address [address] [place] [address] Care Team Providers Care Commercial Real Estate Underwriter Name Role Phone Junior Zayas MD Primary Care Provider [phone] Social History Tobacco Use Types Packs/Day Years [...] age to complete this topic Care Teams Commercial Real Estate Underwriter Relationship Specialty Start Date End Date Junior Zayas MD [address] [place] [address] [address] [facility] [place] [address] PCP - General 05/18/16
--- OUTSIDE RECORDS SUMMARY | 2024-11-24 17:46 | XMS_ITS | Continuity of Care Document ---
Author Organization [facility] Address [address] [address] Phone Care Team Providers Care Ibm Mainframe Systems Programmer Name Role Phone [place] Amy KNIGHT Unavailable Unavailable Advance Directives Directive Yes / No Effective Date File Name No Information Encounters Encounter Description Practice Location Reason(s) For Visit Diagnoses Date Provider [facility], [address] [address], [place], [place], [id number], tel:[phone] No Information [address] [place] [address] [place], [address]. tel:[phone] Family History Family Member Type Diagnosis Age [...]
== END 2024-11-24 16:11 | disposition home or self-care (01) ==
LOC: HO.HCS 15:16
PROVIDERS: PCP Internal Medicine; Visit Provider Nurse Practitioner Family
DX: I25.10 Atherosclerotic heart disease of native coronary artery without angina pectoris (principal); Z98.890 Other specified postprocedural states; I21.4 Non-ST elevation (NSTEMI) myocardial infarction; I10 Essential (primary) hypertension; E78.00 Pure hypercholesterolemia, unspecified
CPT/HCPCS: 99214; G2211

== ENCOUNTER → 2024-11-24 15:16 | Outpatient (BNVA) | payer OTHER, SELFPAY | PROVIDERS: PCP Internal Medicine; Visit Provider Nurse Practitioner Family | DX: I25.10 Atherosclerotic heart disease of native coronary artery without angina pectoris (principal); I25.2 Old myocardial infarction; I10 Essential (primary) hypertension; E78.00 Pure hypercholesterolemia, unspecified; Z98.890 Other specified postprocedural states | CPT/HCPCS: 99212 ==

== ENCOUNTER 2024-12-05 08:37 | Outpatient (AMB) | payer OTHER, SELFPAY ==
--- NOTE | 2024-12-05 08:50 | MHC.OFFVIS ---
Vital Signs 12/05/24 08:53 Height 5 ft 2 in Weight 167 lb 8.821 oz BMI 30.6 BP 100/58 L Blood Pressure Location Rt brachial Position Sitting Pulse 77 Pulse Source Pulse Oximeter Pulse Oximetry (%) 97 Oxygen Delivery Method Room Air Intake Visit Reasons: T2DM Intake Note: Patient present today to follow up on Type 2 Diabetes Mellitus. Last Diabetic Eye exam: 07/02/2024 Last Podiatry Visit: Does not see a Beauty Culturist Apprentice Random Glucose: 171 mg/dl HgA1C: 8.5% 10/21/2024 Turfgrass Technician Required: Yes Turfgrass Technician Language: Sales Program Coordinator Services: Turfgrass Technician Offered & Declined Accompanied by: Daughter Allergies aspirin [Aspirin] Allergy (Mild, Verified 12/05/24 08:54) Abdominal Pain Penicillins Allergy (Mild, Verified 12/05/24 08:54) NAUSEA/STOMACH PAIN hydrochlorothiazide Allergy (Unknown, Verified 12/05/24 08:54) hypokalemia lisinopril Allergy (Unknown, Verified 12/05/24 08:54) ? swelling Nrpzsdw-DPJ-SjF Reductase Inhibitor Allergy (Unknown, Verified 12/05/24 08:54) Muscle cramps amlodipine Adverse Reaction (Intermediate, Verified 12/05/24 08:54) leg swelling ibuprofen [From Motrin] Adverse Reaction (Unknown, Verified 12/05/24 08:54) Abdominal Pain HPI Comments Details: This is a 74-year-old female with a past medical history of coronary artery disease, type 2 diabetes, hyperlipidemia, osteopenia, adrenal adenoma, osteoporosis and hypertension presenting for diabetic management. Her daughter, Roya, provides history and interpretation. They declined video distribution manager. Reviewed Dexcom data Average glucose 182 mg/dL G CA 7.7% 8% very high 41% high 51% in range 0% low Less than 1% very low CGM active 85%. There is a pattern of hyperglycemia in the morning and evening. She denies hypoglycemic events within the past month. She is having milk and regular sugar in her coffee in the morning. We discussed alternatives. Hemoglobin a1c 7% 07/29/2024. Hemoglobin A1c 8.5 % to 10/21/24. Current medication regimen: Insulin glargine 14 units at bedtime, Mounjaro 10 mg weekly, metformin 1000 mg twice daily. Compliance issues: none. She denies side effects on the medication. Hypoglycemia symptoms: none Hyperglycemia symptoms: none Eye exam: 07/02/24 Microvascular complications: neuropathy. The patient started taking gabapentin 100 mg at bedtime after our last visit. Patient says this is helping quite a bit, and she is sleeping better. Macrovascular complications: CAD Hypertension: treated with losartan 100 mg, metoprolol 100 mg twice a day, Lasix 20 mg. Hyperlipidemia: treated with Rosuvastatin 20 mg. ROS: Constitutional: No unexplained weight loss, fever, chills, fatigue. Eyes: No vision change Gastrointestinal: No anorexia, nausea, vomiting or diarrhea. No abdominal pain Skin: No open wounds or rashes. Physical exam: Constitutional: Alert, in no distress. Neck: Supple, Full range of motion. No lymphadenopathy. No palpable thyroid masses. Respiratory: Clear to auscultation. Cardiovascular: S1 S2 regular. No murmurs. [facility] Medical History Diabetic neuropathy GERD (gastroesophageal reflux disease) Type 2 diabetes mellitus with hypoglycemia Pulmonary nodules Hiatal hernia Orthopnea Headache Fall NSTEMI (non-ST elevated myocardial infarction) Lower extremity edema HLD (hyperlipidemia) Colon cancer screening Urinary frequency Pleural effusion, right Nocturia more than twice per night Glaucoma Cataract of left eye Renal cyst Right shoulder pain Preop exam for internal medicine On beta kamryn at home Constipation Abdominal bloating Shoulder pain, right Hip pain, left Vitamin D deficiency Osteoporosis Restless leg syndrome Type 2 diabetes mellitus with diabetic polyneuropathy Nasal congestion Chest pain Tubal ligation evaluation Gastroparesis Adrenal adenoma Pulmonary nodule Fracture of toe of left foot Positive MAGGIE (antinuclear antibody) Osteoarthritis of both knees Osteopenia Ulnar neuropathy Asthma Obesity (BMI 30-39.9) Coronary artery disease Hypercholesterolemia Surgical History History of coronary artery stent placement Hx of right cataract extraction History of esophagogastroduodenoscopy (EGD) Hx of colonoscopy History of breast biopsy History of tubal ligation History of laparoscopic cholecystectomy Family History Mother HTN (hypertension) Diabetes Brother Lung cancer Sister Cancer, colon Daughter Uterine cancer Father Prostate cancer Social History Household Members: Spouse Household Members Other:: Granddaughter is SENIOR INTERNET SALES CONSULTANT lives upstairs Housing: Other Housing Other:: m2 family house Are you a primary manager intensive care unit to a significant other at home: No Do you presently have visiting nurse or other home services: No Alcohol intake: never Patient Tobacco Use Status: Former Tobacco user Tobacco use type: Cigarette e-Cigarette/Vaping Use: Never Used Second Hand Smoke Exposure: Yes service: No Current occupational status: retired and disabled Cognitive needs: No Hearing needs: No Vision needs: Yes (glasses) Physical Exam Vital Signs: Last Vital Signs Pulse 77 12/05/24 08:53 BP 100/58 L 12/05/24 08:53 Pulse Ox 97 12/05/24 08:53 Oxygen Delivery Method Room Air 12/05/24 08:53 BMI result Body Mass Index 30.6 Office Procedures Glucose Monitoring Details Details: See HPI 75638 - Glucose monitoring, continuous-physician I&R Procedure code (CPT) selection complete Assessment & Plan Assessment & Plan (1) Type 2 diabetes mellitus with hypoglycemia: Code(s): E11.649 - Type 2 diabetes mellitus with hypoglycemia without coma Category: Medical Qualifiers: Diabetes mellitus half-way insulin use: with half-way use Diabetes mellitus complication detail: without coma Qualified Code(s): E11.649 - Type 2 diabetes mellitus with hypoglycemia without coma; Z79.4 - computer terminal operator (current) use of insulin (2) Diabetic neuropathy: Code(s): E11.40 - Type 2 diabetes mellitus with diabetic neuropathy, unspecified Category: Medical Plan In summary this is a 74-year-old female with suboptimally controlled but improving type 2 diabetes. Discussed pathophysiology of Type II Diabetes Mellitus with the patient in detail.? I explained the parts counterman risks and complications associated with uncontrolled diabetes including nephropathy, neuropathy, peripheral vascular disease, retinopathy, increased risk of heart disease and stroke.? Lifestyle modification, diabetic diet reviewed with the patient and her daughter. Increase Mounjaro to 12.5 mg weekly. Continue Lantus 14 units daily for now. Continue metformin 1000 mg twice a day, but I did switch to extended-release formulation. Reviewed treatment of hypoglycemia. Patient says she has glucose tablets at home. Continue gabapentin 100 mg at bedtime for neuropathy. Follow up in 2 months for type 2 diabetes. Orders: Orders AMB Glucose Monitoring Today E11.9 - Type 2 diabetes mellitus without complications Medications: New tirzepatide (Mounjaro) 12.5 mg (0.5 mL) subcut QWEEK 2 mL 3RF metformin ER 1,000 mg (2 x 500 mg) PO BID 360 tabs 3RF Refilled insulin glargine (Lantus Solostar U-100 Insulin) 14 units (0.14 mL) subcut .qhs 15 mL 5RF Discontinued metformin Discontinued Reason: Doctor's Order 1,000 mg (2 x 500 mg) PO BID 120 tabs 4RF E11.65 - Type 2 diabetes mellitus with hyperglycemia tirzepatide (Mounjaro) Discontinued Reason: Doctor's Order 10 mg (0.5 mL) subcut QWEEK 2 mL 2RF Coding Level of Care Code Est Pt Level 4 (47876) Diagnoses Type 2 diabetes mellitus with hypoglycemia without coma, with long-term current use of insulin E11.649; Z79.4 Diabetes mellitus half-way insulin use: with half-way use Diabetes mellitus complication detail: without coma Diabetic neuropathy E11.40 CPT Codes Details - CPT: 55253 - Glucose monitoring, continuous-physician I&R ([id number])
[2024-12-05 08:53] VITALS: BP 100/58; PULSE 77; O2SAT 97; BMI 30.6
[2024-12-05 09:10] LABS: Glucose, Whole Blood 171 mg/dL (60-115)
== END 2024-12-05 09:27 | disposition home or self-care (01) ==
LOC: HO.ENCR 08:38
PROVIDERS: PCP Internal Medicine; Visit Provider Physician Assistant Medical
DX: E11.649 Type 2 diabetes mellitus with hypoglycemia without coma (principal); Z79.4 Long term (current) use of insulin; E11.40 Type 2 diabetes mellitus with diabetic neuropathy, unspecified

== ENCOUNTER → 2024-12-05 08:37 | Outpatient (BNVA) | payer OTHER, SELFPAY | PROVIDERS: PCP Internal Medicine; Visit Provider Physician Assistant Medical | DX: E11.649 Type 2 diabetes mellitus with hypoglycemia without coma (principal); E11.40 Type 2 diabetes mellitus with diabetic neuropathy, unspecified; Z79.4 Long term (current) use of insulin | CPT/HCPCS: 82947; 99212 ==

== ENCOUNTER 2024-12-12 10:54 | Outpatient (AMB) | payer OTHER, SELFPAY ==
--- NOTE | 2024-12-12 11:03 | MHC.OFFVIS ---
Vital Signs 12/12/24 11:08 Height 5 ft 2 in Weight 170 lb 3.15 oz BMI 31.1 BP 124/62 Blood Pressure Location Rt brachial Position Sitting Pulse 70 Pulse Source Pulse Oximeter Pulse Oximetry (%) 99 Oxygen Delivery Method Room Air Intake Visit Reasons: Type II diabetes Intake Note: Patient present today to follow up on Type 2 Diabetes Mellitus. Last Diabetic Eye exam: 07/02/2024 Last Podiatry Visit: Does not see a Wet Process Miller Random Glucose: 286 mg/dl HgA1C: 8.5% Cavalry Scout Required: Yes Cavalry Scout Language: Legal Specialist Services: Cavalry Scout Offered & Declined Accompanied by: Julien Allergies aspirin [Aspirin] Allergy (Mild, Verified 12/12/24 11:08) Abdominal Pain Penicillins Allergy (Mild, Verified 12/12/24 11:08) NAUSEA/STOMACH PAIN hydrochlorothiazide Allergy (Unknown, Verified 12/12/24 11:08) hypokalemia lisinopril Allergy (Unknown, Verified 12/12/24 11:08) ? swelling Casqblg-GHJ-NcM Reductase Inhibitor Allergy (Unknown, Verified 12/12/24 11:08) Muscle cramps amlodipine Adverse Reaction (Intermediate, Verified 12/12/24 11:08) leg swelling ibuprofen [From Motrin] Adverse Reaction (Unknown, Verified 12/12/24 11:08) Abdominal Pain HPI Comments Details: This is a 74-year-old female with a past medical history of coronary artery disease, type 2 diabetes, hyperlipidemia, osteopenia, adrenal adenoma, osteoporosis and hypertension presenting for diabetic management. Her daughter, Roya, provides history and interpretation. They declined video slide forming machine operator. Reviewed Dexcom data G NM 8.5% Average glucose 215 Coefficient of variation 28.2% 27% very high 41% high 32% in range 0% hypoglycemia. She has a pattern of hyperglycemia postprandially throughout the day. Denies hypoglycemic events within the past month. She is having coffee with milk and sugar and bread in the morning. She is eating rice every day. Her blood sugars have increased. Hemoglobin a1c 7% 07/29/2024. Hemoglobin A1c 8.5 % to 10/21/24. Current medication regimen: Insulin glargine 14 units at bedtime, Mounjaro 12.5 mg weekly, metformin 1000 mg twice daily. Previous medications: Compliance issues: She is taking her medications, but she did not increase the dose of Mounjaro yet. Hypoglycemia symptoms: none Hyperglycemia symptoms: none Eye exam: 07/02/24 Microvascular complications: neuropathy. The patient started taking gabapentin 100 mg at bedtime after our last visit. Patient says this is helping quite a bit, and she is sleeping better. Macrovascular complications: CAD Hypertension: treated with losartan 100 mg, metoprolol 100 mg twice a day, Lasix 20 mg. Hyperlipidemia: treated with Rosuvastatin 20 mg. ROS: Constitutional: No unexplained weight loss, fever, chills, fatigue. Eyes: No vision change Gastrointestinal: No anorexia, nausea, vomiting or diarrhea. No abdominal pain Skin: No open wounds or rashes. Physical exam: Constitutional: Alert, in no distress. Neck: Supple, Full range of motion. No lymphadenopathy. No palpable thyroid masses. Respiratory: Clear to auscultation. Cardiovascular: S1 S2 regular. No murmurs. [facility] Medical History Diabetic neuropathy GERD (gastroesophageal reflux disease) Type 2 diabetes mellitus with hypoglycemia Pulmonary nodules Hiatal hernia Orthopnea Headache Fall NSTEMI (non-ST elevated myocardial infarction) Lower extremity edema HLD (hyperlipidemia) Colon cancer screening Urinary frequency Pleural effusion, right Nocturia more than twice per night Glaucoma Cataract of left eye Renal cyst Right shoulder pain Preop exam for internal medicine On beta kamryn at home Constipation Abdominal bloating Shoulder pain, right Hip pain, left Vitamin D deficiency Osteoporosis Restless leg syndrome Type 2 diabetes mellitus with diabetic polyneuropathy Nasal congestion Chest pain Tubal ligation evaluation Gastroparesis Adrenal adenoma Pulmonary nodule Fracture of toe of left foot Positive MAGGIE (antinuclear antibody) Osteoarthritis of both knees Osteopenia Ulnar neuropathy Asthma Obesity (BMI 30-39.9) Coronary artery disease Hypercholesterolemia Surgical History History of coronary artery stent placement Hx of right cataract extraction History of esophagogastroduodenoscopy (EGD) Hx of colonoscopy History of breast biopsy History of tubal ligation History of laparoscopic cholecystectomy Family History Mother HTN (hypertension) Diabetes Brother Lung cancer Sister Cancer, colon Daughter Uterine cancer Father Prostate cancer Social History Household Members: Spouse Household Members Other:: Granddaughter is ADVANCED PRACTICE REGISTERED NURSE lives upstairs Housing: Other Housing Other:: m2 family house Are you a primary resident care manager rn to a significant other at home: No Do you presently have visiting nurse or other home services: No Alcohol intake: never Patient Tobacco Use Status: Former Tobacco user Tobacco use type: Cigarette e-Cigarette/Vaping Use: Never Used Second Hand Smoke Exposure: Yes service: No Current occupational status: retired and disabled Cognitive needs: No Hearing needs: No Vision needs: Yes (glasses) Physical Exam Vital Signs: Last Vital Signs Pulse 70 12/12/24 11:08 BP 124/62 12/12/24 11:08 Pulse Ox 99 12/12/24 11:08 Oxygen Delivery Method Room Air 12/12/24 11:08 BMI result Body Mass Index 31.1 Office Procedures Glucose Monitoring Details Details: see HPI 62900 - Glucose monitoring, continuous-physician I&R Procedure code (CPT) selection complete Results Reviewed Results Reviewed: Laboratory Last Values Glucose (Clinic) 286 mg/dL (60-115) H 12/12/24 11:14 Laboratory Tests 12/07/23 12/07/23 03/30/24 09:18 09:20 12:56 Creatinine 0.72 Estimated GFR > 60 Hemoglobin A1c % 7.7 H ALT 16 Alkaline Phosphatase 71 Triglycerides 68 Cholesterol 110 LDL Cholesterol, Calc 46 HDL Cholesterol 51 TSH 2.52 Free T4 0.93 Urine Creatinine 73.93 Urine Microalbumin 9.0 Microalb/Creat Ratio 12.1 Assessment & Plan Assessment & Plan (1) Type 2 diabetes mellitus with hypoglycemia: Code(s): E11.649 - Type 2 diabetes mellitus with hypoglycemia without coma Category: Medical Qualifiers: Diabetes mellitus complication detail: without coma Diabetes mellitus adjunct faculty for medical terminology insulin use: with skilled nursing use Qualified Code(s): E11.649 - Type 2 diabetes mellitus with hypoglycemia without coma; Z79.4 - terminal operator (current) use of insulin (2) Diabetic neuropathy: Code(s): E11.40 - Type 2 diabetes mellitus with diabetic neuropathy, unspecified Category: Medical Qualifiers: Diabetes mellitus type: type 2 Diabetes mellitus complication detail: diabetic mononeuropathy Qualified Code(s): E11.41 - Type 2 diabetes mellitus with diabetic mononeuropathy Plan In summary this is a 74-year-old female with suboptimally controlled type 2 diabetes. Discussed pathophysiology of Type II Diabetes Mellitus with the patient in detail.? I explained the adjunct faculty for medical terminology risks and complications associated with uncontrolled diabetes including nephropathy, neuropathy, peripheral vascular disease, retinopathy, increased risk of heart disease and stroke.? Lifestyle modification, diabetic diet reviewed with the patient and her daughter. We reviewed the data from her Dexcom which shows what she is eating they during the day is affecting her blood sugars. Blood sugars overnight are good. She declined referral to the dietitian and instructional specialist. Increase Mounjaro to 12.5 mg weekly. Continue Lantus 14 units daily for now. Continue metformin 1000 mg twice a day, but I did switch to extended-release formulation. Reviewed treatment of hypoglycemia. Patient says she has glucose tablets at home. Continue gabapentin 100 mg at bedtime for neuropathy. Follow up in 1 month for type 2 diabetes. Orders: Orders AMB Glucose Monitoring Today E11.9 - Type 2 diabetes mellitus without complications Patient Instructions: Truvia is the name of the sweetener to use. Increase Mounjaro to 12.5 mg weekly. Continue Lantus 14 units daily for now. Continue metformin 1000 mg twice a day, but I did switch to extended-release formulation. Coding Level of Care Code Est Pt Level 4 (02730) Diagnoses Type 2 diabetes mellitus with hypoglycemia without coma, with long-term current use of insulin E11.649; Z79.4 Diabetes mellitus complication detail: without coma Diabetes mellitus skilled nursing insulin use: with skilled nursing use Diabetic mononeuropathy associated with type 2 diabetes mellitus E11.41 Diabetes mellitus type: type 2 Diabetes mellitus complication detail: diabetic mononeuropathy CPT Codes Details - CPT: 18562 - Glucose monitoring, continuous-physician I&R ([id number])
[2024-12-12 11:08] VITALS: BP 124/62; PULSE 70; O2SAT 99; BMI 31.1
[2024-12-12 11:38] LABS: Glucose, Whole Blood 286 mg/dL (60-115)
--- OUTSIDE RECORDS SUMMARY | 2024-12-12 12:38 | XMS_ITS | Clinical Summary ---
Author Organization [employer] [facility] ity Address [address] [place] [address] Care Team Providers Care Family Resource Specialist Name Role Phone Junior Zayas MD Primary Care Provider [phone] Social History Tobacco Use Types Packs/Day Years [...] Influencers of Health Screening 08/13/2022 RSV Immunization Adult Patie nts (1 - 1-dose 75+ series) 2023 Diabetes: [...] age to complete this topic Care Teams Family Resource Specialist Relationship Specialty Start Date End Date Junior Zayas MD [address] [place] [address] [address] [facility] [place] [address] PCP - General 05/18/16
--- OUTSIDE RECORDS SUMMARY | 2024-12-12 12:38 | XMS_ITS | Continuity of Care Document ---
Author Organization [facility] Address [address] [address] Phone Care Team Providers Care Branding Machine Operator Name Role Phone [place] Amy KNIGHT Unavailable Unavailable Advance Directives Directive Yes / No Effective Date File Name No Information Encounters Encounter Description Practice Location Reason(s) For Visit Diagnoses Date Provider [facility], [address] [address], [place], [place], [id number], tel:[phone] No Information [address] [place], [address]. tel:[phone] Family History Family Member Type Diagnosis Age [...]
== END 2024-12-12 11:41 | disposition home or self-care (01) ==
LOC: HO.ENCR 10:55
PROVIDERS: PCP Internal Medicine; Visit Provider Physician Assistant Medical
DX: E11.649 Type 2 diabetes mellitus with hypoglycemia without coma (principal); Z79.4 Long term (current) use of insulin; E11.41 Type 2 diabetes mellitus with diabetic mononeuropathy

== ENCOUNTER → 2024-12-12 10:54 | Outpatient (BNVA) | payer OTHER, SELFPAY | PROVIDERS: PCP Internal Medicine; Visit Provider Physician Assistant Medical | DX: E11.649 Type 2 diabetes mellitus with hypoglycemia without coma (principal); E11.41 Type 2 diabetes mellitus with diabetic mononeuropathy; Z79.4 Long term (current) use of insulin | CPT/HCPCS: 82947; 99212 ==

== ENCOUNTER 2025-01-05 10:14 | Outpatient (AMB) | payer OTHER, SELFPAY ==
--- NOTE | 2025-01-05 10:23 | A.OFFVIS_ITS ---
Vital Signs 01/05/25 10:24 Height 5 ft 2 in Weight 166 lb 7.184 oz BMI 30.4 BP 100/58 L Blood Pressure Location Rt brachial Position Sitting Pulse 90 Pulse Source Pulse Oximeter Pulse Oximetry (%) 98 Oxygen Delivery Method Room Air Intake Visit Reasons: Asthma Allergies aspirin [Aspirin] Allergy (Mild, Verified 01/05/25 10:27) Abdominal Pain Penicillins Allergy (Mild, Verified 01/05/25 10:27) NAUSEA/STOMACH PAIN hydrochlorothiazide Allergy (Unknown, Verified 01/05/25 10:27) hypokalemia lisinopril Allergy (Unknown, Verified 01/05/25 10:27) ? swelling Kyukidl-ICF-EmF Reductase Inhibitor Allergy (Unknown, Verified 01/05/25 10:27) Muscle cramps amlodipine Adverse Reaction (Intermediate, Verified 01/05/25 10:27) leg swelling ibuprofen [From Motrin] Adverse Reaction (Unknown, Verified 01/05/25 10:27) Abdominal Pain HPI Comments Details: The patient is a 74 y/o woman with a history of asthma. She has been on Wixela and seems to be helpful. Back in the Fall she did go to the ED with a flare up. She is have a CXR that we reviewed with no acute disease. She was treated with prednisone at that time. She did have PFTs back in 2019, which demonstrated limited inspiratory flows at that time. The patient did have a CT scan of the chest that also reviewed back in 2016 that demonstrated a small hiatal hernia and also subcentimeter pulmonary nodules. The patient has not had any further imaging studies to review the pulmonary nodules at this time. 02/06/2024 the patient is here for a pulmonary follow-up visit. Overall the patient has been doing well. She has been using Wixela twice a day. She is finds it helpful. She is having some muscle spasms at nighttime. Is affecting her sleep. We did talk about this point decreasing the Wixela down to just in the morning to try to minimize on the potassium chest. The patient also can try some magnesium [id number] to see if this provides some relief. We did review her CT scan of the chest. Pulmonary nodules are stable. She has a small hiatal hernia that still stable as well. No further CAT scans are warranted. 01/05/2025 the patient is here for a pulmonary follow-up visit. The patient overall has been doing well. She still continues to have issues with muscle spasms and neuropathies. She has responded well to Neurontin. We did talk about her potassium levels. Seems like the last time she had blood work to reassuring. The patient has been under Wixela she does not use it as prescribed. Mainly as needed. Therefore will go ahead and switch over to AirDuo brought that will be more effective medication for her. No imaging studies warranted. Will follow-up in a year's time. If she develops any worsening symptoms she can always call for an earlier assessment. [facility] Medical History Diabetic neuropathy GERD (gastroesophageal reflux disease) Type 2 diabetes mellitus with hypoglycemia Pulmonary nodules Hiatal hernia Orthopnea Headache Fall NSTEMI (non-ST elevated myocardial infarction) Lower extremity edema HLD (hyperlipidemia) Colon cancer screening Urinary frequency Pleural effusion, right Nocturia more than twice per night Glaucoma Cataract of left eye Renal cyst Right shoulder pain Preop exam for internal medicine On beta kamryn at home Constipation Abdominal bloating Shoulder pain, right Hip pain, left Vitamin D deficiency Osteoporosis Restless leg syndrome Type 2 diabetes mellitus with diabetic polyneuropathy Nasal congestion Chest pain Tubal ligation evaluation Gastroparesis Adrenal adenoma Pulmonary nodule Fracture of toe of left foot Positive MAGGIE (antinuclear antibody) Osteoarthritis of both knees Osteopenia Ulnar neuropathy Asthma Obesity (BMI 30-39.9) Coronary artery disease Hypercholesterolemia Surgical History History of coronary artery stent placement Hx of right cataract extraction History of esophagogastroduodenoscopy (EGD) Hx of colonoscopy History of breast biopsy History of tubal ligation History of laparoscopic cholecystectomy Family History Mother HTN (hypertension) Diabetes Brother Lung cancer Sister Cancer, colon Daughter Uterine cancer Father Prostate cancer Social History (Reviewed 01/05/25 @ 10:27 by Flori Lopes [facility]) Household Members: Spouse Household Members Other:: Granddaughter is LEVEL VIAL GRINDER lives upstairs Housing: Other Housing Other:: m2 family house Are you a primary career manager to a significant other at home: No Do you presently have visiting nurse or other home services: No Alcohol intake: never Patient Tobacco Use Status: Former Tobacco user Tobacco use type: Cigarette e-Cigarette/Vaping Use: Never Used Second Hand Smoke Exposure: Yes service: No Current occupational status: retired and disabled Cognitive needs: No Hearing needs: No Vision needs: Yes (glasses) Review of Systems Const Denies chills, Denies fatigue, Denies fever(s) and Denies weight gain ENT Denies dizziness Card Denies chest pain and Reports dyspnea on exertion Resp Reports cough and Reports dyspnea on exertion GI Denies hematochezia and Denies change in stool character Musc Denies abnormal gait, Denies muscle weakness, Denies numbness, Denies radiating pain into limb and Denies tingling Neuro Denies abnormal gait, Denies dizziness, Denies numbness and Denies tingling Endo Denies fatigue Physical Exam Vital Signs: Last Vital Signs Pulse 90 01/05/25 10:24 BP 100/58 L 01/05/25 10:24 Pulse Ox 98 01/05/25 10:24 Oxygen Delivery Method Room Air 01/05/25 10:24 BMI result Body Mass Index 30.4 Const General: healthy appearing, no acute distress and well developed Nutritional Appearance: well nourished Orientation/consciousness: patient oriented x3 Chest Chest palpation & inspection: normal inspection of the chest Resp Effort & Inspection: normal respiratory effort and no tracheal deviation Auscultation: clear to auscultation bilaterally Cardio Rate: regular rate Heart sounds: S1 normal heart sound present and S2 normal heart sound present GI Palpation (GI): Soft to palpation and nontender Skin General skin exam: turgor normal Neuro General: patient oriented x3 Extrem General: Yes no clubbing, cyanosis or edema Psych Appearance: grossly normal Mental Status: mental status grossly normal Assessment & Plan Assessment & Plan (1) Asthma: Code(s): J45.909 - Unspecified asthma, uncomplicated Category: Medical Qualifiers: Asthma complication type: uncomplicated Asthma persistence: intermittent Asthma severity: mild Qualified Code(s): J45.20 - Mild intermittent asthma, uncomplicated (2) Hiatal hernia: Code(s): K44.9 - Diaphragmatic hernia without obstruction or gangrene Category: Medical (3) Pulmonary nodules: Code(s): R91.8 - Other nonspecific abnormal finding of lung field Category: Medical Plan stop Wixela start Airsupra BID reflux diet sleep with HOB elevated Low Sodium diet CT chest with stable nodules, no further f/u is warranted F/U 8-12 months Medications: New albuterol-budesonide 90-80 mcg/actuation (Airsupra) 2 inhalations inhalation BID PRN 10.7 grams 0RF shortness of breath 30 days Discontinued fluticasone propion-salmeterol 250-50 mcg/dose (Wixela Inhub) Discontinued Reason: Entered in error 1 ea PO BID 60 ea 3RF J45.20 - Mild intermittent asthma, uncomplicated Coding Level of Care Code Est Pt Level 4 (33308) Diagnoses Mild intermittent asthma without complication J45.20 Asthma complication type: uncomplicated Asthma persistence: intermittent Asthma severity: mild Hiatal hernia K44.9 Pulmonary nodules R91.8 Time Spent (min) 16
[2025-01-05 10:24] VITALS: BP 100/58; PULSE 90; O2SAT 98; BMI 30.4
--- OUTSIDE RECORDS SUMMARY | 2025-01-05 11:53 | XMS_ITS | Clinical Summary ---
Author Organization [facility] ity Address [address] [place] [address] Care Team Providers Care Auto Tech Name Role Phone Junior Zayas MD Primary Care Provider [phone] Social History Tobacco Use Types Packs/Day Years [...] Annual BMP Blood Test 10/26/2023 COVID-19 Vaccine (2023-2 5 season) 2024 Influenza Vaccine (Season Ended) 2025 HIB Vaccines Aged Out No longer eligi [...] age to complete this topic Meningococcal B Vaccine Aged Out No l onger eligible based on patient's age to complete this topic RSV Immunization Patients Un quin[place] 20 months Aged Out No longer eligible b ased on patient's age to complete this topic Varicella Vaccines Aged Out No longer eligible based on patient's age to complete this topic Care Teams Auto Tech Relationship Specialty Start Date End Date Junior Zayas MD [address] [place] [address] [address] [facility] [place] [address] PCP - General 05/18/16
--- OUTSIDE RECORDS SUMMARY | 2025-01-05 11:53 | XMS_ITS | Continuity of Care Document ---
Author Organization [facility] Address [address] [address] Phone Care Team Providers Care Security Operations Engineer Name Role Phone [place] Amy KNIGHT Unavailable Unavailable Advance Directives Directive Yes / No Effective Date File Name No Information Encounters Encounter Description Practice Location Reason(s) For Visit Diagnoses Date Provider [facility], [address] [address], [place], [place], [id number], tel:[phone] No Information [address] [place] [address] [place], [address]. tel:[phone] Family History Family Member Type Diagnosis Age [...]
== END 2025-01-05 10:50 | disposition home or self-care (01) ==
LOC: HO.HPS 10:14
PROVIDERS: PCP Internal Medicine; Visit Provider Hospitalist
DX: J45.20 Mild intermittent asthma, uncomplicated (principal); K44.9 Diaphragmatic hernia without obstruction or gangrene; R91.8 Other nonspecific abnormal finding of lung field
CPT/HCPCS: 99214

== ENCOUNTER → 2025-01-05 10:14 | Outpatient (BNVA) | payer OTHER, SELFPAY | PROVIDERS: PCP Internal Medicine; Visit Provider Hospitalist | DX: J45.20 Mild intermittent asthma, uncomplicated (principal); K44.9 Diaphragmatic hernia without obstruction or gangrene; R91.8 Other nonspecific abnormal finding of lung field | CPT/HCPCS: 99212 ==

== ENCOUNTER 2025-01-07 09:01 | Outpatient (REF) | payer OTHER, SELFPAY ==
--- OUTSIDE RECORDS SUMMARY | 2025-01-07 09:29 | XMS_ITS | Clinical Summary ---
Author Organization [employer] [facility] ity Address [address] [place] [address] Care Team Providers Care Primer Waterproofing Machine Operator Name Role Phone Junior Zayas MD Primary Care Provider [phone] Social History Tobacco Use Types Packs/Day Years [...] age to complete this topic Care Teams Primer Waterproofing Machine Operator Relationship Specialty Start Date End Date Junior Zayas MD [address] [place] [address] [address] [facility] [place] [address] PCP - General 05/18/16
--- OUTSIDE RECORDS SUMMARY | 2025-01-07 09:29 | XMS_ITS | Continuity of Care Document ---
Author Organization [facility] Address [address] [address] Phone Care Team Providers Care Piano Builder Name Role Phone [place] Amy KNIGHT Unavailable Unavailable Advance Directives Directive Yes / No Effective Date File Name No Information Encounters Encounter Description Practice Location Reason(s) For Visit Diagnoses Date Provider [facility], [address] [address], [place], [place], [id number], tel:[phone] No Information [address] [place] [address] [place], [address]. tel:[phone] Family History Family Member Type Diagnosis Age [...]
== END 2025-01-07 09:02 | disposition home or self-care (01) ==
LOC: HO.HOSX 09:01
DX: Z13.89 Encounter for screening for other disorder (principal)

== ENCOUNTER 2025-01-09 09:32 | Outpatient (AMB) | payer OTHER, SELFPAY ==
--- NOTE | 2025-01-09 09:33 | A.OFFVIS_ITS ---
Vital Signs 01/09/25 09:37 Height 5 ft 2 in Weight 167 lb 12.348 oz BMI 30.7 BP 132/72 Blood Pressure Location Lt brachial Position Sitting Pulse 84 Pulse Source Pulse Oximeter Pulse Oximetry (%) 98 Oxygen Delivery Method Room Air Intake Visit Reasons: T2DM Intake Note: Patient present today to follow up on Type 2 Diabetes Mellitus. Last Diabetic Eye exam: 07/02/2024 Last Podiatry Visit: Does not see a Design Assistant Random Glucose: 131 mg/dl HgA1C: 7.9% 01/09/2025 Customs House Broker Required: Yes Customs House Broker Language: Brine Well Operator Services: Customs House Broker Offered & Declined Accompanied by: Daughter Allergies aspirin [Aspirin] Allergy (Mild, Verified 01/09/25 09:38) Abdominal Pain Penicillins Allergy (Mild, Verified 01/09/25 09:38) NAUSEA/STOMACH PAIN hydrochlorothiazide Allergy (Unknown, Verified 01/09/25 09:38) hypokalemia lisinopril Allergy (Unknown, Verified 01/09/25 09:38) ? swelling Otbsjku-IKQ-WxH Reductase Inhibitor Allergy (Unknown, Verified 01/09/25 09:38) Muscle cramps amlodipine Adverse Reaction (Intermediate, Verified 01/09/25 09:38) leg swelling ibuprofen [From Motrin] Adverse Reaction (Unknown, Verified 01/09/25 09:38) Abdominal Pain HPI Comments Details: This is a 74-year-old female with a past medical history of coronary artery disease, type 2 diabetes, hyperlipidemia, osteopenia, adrenal adenoma, osteoporosis and hypertension presenting for diabetic management. Her daughter, Roya, provides history and interpretation. They declined video organ tuner electronic. Reviewed Dexcom data from December 27 to 01/09/2025 Average glucose 159 mg/dL G IL 7.1% down from 8.5% at her last visit 2% very high 29% high 68% in range 1% low There is a pattern of postprandial hyperglycemia. She has not changed her diet. She still has coffee with milk and sugar and rice every day. Hemoglobin A1c 8.5 % to 10/21/24. Hemoglobin a1c 7.9% today 01/09/25. Current medication regimen: Insulin glargine 14 units at bedtime, Mounjaro 12.5 mg weekly, metformin 1000 mg twice daily. Compliance issues: She is taking her medications. Hypoglycemia symptoms: Patient says that she is waking up several times per week feeling sweaty like she has a low blood sugar, but she does not check her sugar or eat anything. She goes back to sleep. Hyperglycemia symptoms: none Eye exam: 07/02/24 Microvascular complications: neuropathy treated with gabapentin Macrovascular complications: CAD Hypertension: treated with losartan 100 mg, metoprolol 100 mg twice a day, Lasix 20 mg. Hyperlipidemia: treated with Rosuvastatin 20 mg. ROS: Constitutional: No unexplained weight loss, fever, chills, fatigue. Eyes: No vision change Gastrointestinal: No anorexia, nausea, vomiting or diarrhea. No abdominal pain Skin: No open wounds or rashes. Physical exam: Constitutional: Alert, in no distress. Neck: Supple, Full range of motion. No lymphadenopathy. No palpable thyroid masses. Respiratory: Clear to auscultation. Cardiovascular: S1 S2 regular. No murmurs. [facility] Medical History Diabetic neuropathy GERD (gastroesophageal reflux disease) Type 2 diabetes mellitus with hypoglycemia Pulmonary nodules Hiatal hernia Orthopnea Headache Fall NSTEMI (non-ST elevated myocardial infarction) Lower extremity edema HLD (hyperlipidemia) Colon cancer screening Urinary frequency Pleural effusion, right Nocturia more than twice per night Glaucoma Cataract of left eye Renal cyst Right shoulder pain Preop exam for internal medicine On beta kamryn at home Constipation Abdominal bloating Shoulder pain, right Hip pain, left Vitamin D deficiency Osteoporosis Restless leg syndrome Type 2 diabetes mellitus with diabetic polyneuropathy Nasal congestion Chest pain Tubal ligation evaluation Gastroparesis Adrenal adenoma Pulmonary nodule Fracture of toe of left foot Positive MAGGIE (antinuclear antibody) Osteoarthritis of both knees Osteopenia Ulnar neuropathy Asthma Obesity (BMI 30-39.9) Coronary artery disease Hypercholesterolemia Surgical History History of coronary artery stent placement Hx of right cataract extraction History of esophagogastroduodenoscopy (EGD) Hx of colonoscopy History of breast biopsy History of tubal ligation History of laparoscopic cholecystectomy Family History Mother HTN (hypertension) Diabetes Brother Lung cancer Sister Cancer, colon Daughter Uterine cancer Father Prostate cancer Social History Household Members: Spouse Household Members Other:: Granddaughter is ROTO ROOTER OPERATOR lives upstairs Housing: Other Housing Other:: m2 family house Are you a primary healthcare economics manager to a significant other at home: No Do you presently have visiting nurse or other home services: No Alcohol intake: never Patient Tobacco Use Status: Former Tobacco user Tobacco use type: Cigarette e-Cigarette/Vaping Use: Never Used Second Hand Smoke Exposure: Yes service: No Current occupational status: retired and disabled Cognitive needs: No Hearing needs: No Vision needs: Yes (glasses) Physical Exam Vital Signs: Last Vital Signs Pulse 84 01/09/25 09:37 BP 132/72 01/09/25 09:37 Pulse Ox 98 01/09/25 09:37 Oxygen Delivery Method Room Air 01/09/25 09:37 BMI result Body Mass Index 30.7 Office Procedures Glucose Monitoring Details Details: See [facility] [address] - Glucose monitoring, continuous-physician I&R Procedure code (CPT) selection complete Results AMB Hemoglobin A1c AMB Hemoglobin A1c 7.9 % Last Edit by NGUYEN Powell on 01/09/25 09:57 Results Reviewed Results Reviewed: Laboratory Last Values Glucose (Clinic) 131 mg/dL (60-115) H 01/09/25 09:44 Assessment & Plan Assessment & Plan (1) Type 2 diabetes mellitus with hypoglycemia: Code(s): E11.649 - Type 2 diabetes mellitus with hypoglycemia without coma Category: Medical Qualifiers: Diabetes mellitus care home insulin use: with care home use Diabetes mellitus complication detail: without coma Qualified Code(s): E11.649 - Type 2 diabetes mellitus with hypoglycemia without coma; Z79.4 - intermediate project manager (current) use of insulin (2) Diabetic neuropathy: Code(s): E11.40 - Type 2 diabetes mellitus with diabetic neuropathy, unspecified Category: Medical Qualifiers: Diabetes mellitus type: type 2 Diabetes mellitus complication detail: diabetic mononeuropathy Qualified Code(s): E11.41 - Type 2 diabetes mellitus with diabetic mononeuropathy Plan In summary this is a 74-year-old female with suboptimally controlled type 2 diabetes. Discussed pathophysiology of Type II Diabetes Mellitus with the patient in detail.? I explained the care home risks and complications associated with uncontrolled diabetes including nephropathy, neuropathy, peripheral vascular disease, retinopathy, increased risk of heart disease and stroke.? Lifestyle modification, diabetic diet reviewed with the patient and her bogdan r. We reviewed the data from her Dexcom which shows what she is eating they during the day is affecting her blood sugars. Blood sugars overnight are good. She declined referral to the dietitian and operations research engineer. Patient endorses nocturnal hypoglycemia symptoms though she has not confirmed by checking blood sugar. Reviewed Dexcom data. Decrease Lantus to 10 units nightly. If episodes persist consider switching to Toujeo or Tresiba. Continue Mounjaro 12..5 mg weekly and metformin 1000 mg twice a day. Reviewed treatment of hypoglycemia. Patient says she has glucose tablets at home. Continue gabapentin 100 mg at bedtime for neuropathy. Follow up in 1 month for type 2 diabetes. Orders: Orders AMB Hemoglobin A1c Today E11.41 - Type 2 diabetes mellitus with diabetic mononeuropathy AMB Glucose Monitoring Today E11.9 - Type 2 diabetes mellitus without complications Patient Instructions: Decrease Lantus to 10 units every evening. Continue Mounjaro 12.5 mg weekly. Continue Metformin 1000 mg twice daily. If you experience low blood sugar, treat this by eating a chewable fruit candy like skittles or jelly beans (about 8 pieces), 4 ounces (1/2 cup) of fruit juice (not diet), 1 tablespoon of honey or 4 glucose tablets. If your blood sugar is under 55, take double the amount of one of the above. Recheck your blood sugar in 15 minutes. Reduzca la dosis de Lantus a 10 unidades cada noche. Contin?e con Mounjaro 12.5 mg semanalmente. Contin?e con Metformina 1000 mg dos veces al d?a. Si experimenta niveles bajos de az?car en la adi, tr?telo con un caramelo masticable de fruta renetta Skittles o Jelly Beans (aproximadamente 8 piezas), 113 ml (1/2 taza) de jugo de fruta (no light), 1 cucharada de miel o 4 tabletas de glucosa. Si velásquez nivel de az?car en la adi es inferior a 55, tome el doble de la dosis de isaac de los medicamentos mencionados. Vuelva a medir velásquez nivel de az?car en la adi en 15 minutos. Coding Level of Care Code Est Pt Level 4 (51929) Diagnoses Type 2 diabetes mellitus with hypoglycemia without coma, with long-term current use of insulin E11.649; Z79.4 Diabetes mellitus care home insulin use: with terminal gauger supervisor use Diabetes mellitus complication detail: without coma Diabetic mononeuropathy associated with type 2 diabetes mellitus E11.41 Diabetes mellitus type: type 2 Diabetes mellitus complication detail: diabetic mononeuropathy CPT Codes Details - CPT: 75310 - Glucose monitoring, continuous-physician I&R ([id number])
[2025-01-09 09:37] VITALS: BP 132/72; PULSE 84; O2SAT 98; BMI 30.7
[2025-01-09 09:48] LABS: Glucose, Whole Blood 131 mg/dL (60-115)
--- OUTSIDE RECORDS SUMMARY | 2025-01-09 10:22 | XMS_ITS | Clinical Summary ---
Author Organization [facility] [facility] ity Address [address] [place] [address] Care Team Providers Care Directional Driller Name Role Phone Junior Zayas MD Primary Care Provider [phone] Social History Tobacco Use Types Packs/Day Years [...] age to complete this topic Care Teams Directional Driller Relationship Specialty Start Date End Date Junior Zayas MD [address] [place] [address] [address] [facility] [place] [address] PCP - General 05/18/16
--- OUTSIDE RECORDS SUMMARY | 2025-01-09 10:23 | XMS_ITS | Continuity of Care Document ---
Author Organization [facility] Address [address] [address] Phone Care Team Providers Care Office Lead Name Role Phone Mary D Amy KNIGHT Unavailable Unavailable Advance Directives Directive Yes / No Effective Date File Name No Information Encounters Encounter Description Practice Location Reason(s) For Visit Diagnoses Date Provider [facility], [address] [address], [place], [id number], tel:[phone] No Information [address] [place], [address]. tel:[phone] Family History Family Member Type Diagnosis Age [...]
== END 2025-01-09 10:04 | disposition home or self-care (01) ==
LOC: HO.ENCR 09:33
PROVIDERS: PCP Internal Medicine; Visit Provider Physician Assistant Medical
DX: E11.649 Type 2 diabetes mellitus with hypoglycemia without coma (principal); Z79.4 Long term (current) use of insulin; E11.41 Type 2 diabetes mellitus with diabetic mononeuropathy

== ENCOUNTER → 2025-01-09 09:32 | Outpatient (BNVA) | payer OTHER, SELFPAY | PROVIDERS: PCP Internal Medicine; Visit Provider Physician Assistant Medical | DX: E11.649 Type 2 diabetes mellitus with hypoglycemia without coma (principal); E11.41 Type 2 diabetes mellitus with diabetic mononeuropathy; I25.10 Atherosclerotic heart disease of native coronary artery without angina pectoris; E78.5 Hyperlipidemia, unspecified; M85.80 Other specified disorders of bone density and structure, unspecified site; M81.0 Age-related osteoporosis without current pathological fracture; I10 Essential (primary) hypertension; Z79.4 Long term (current) use of insulin | CPT/HCPCS: 82947; 83036; 99212 ==

== ENCOUNTER 2025-01-19 09:25 | Outpatient (AMB) | payer OTHER, SELFPAY ==
--- NOTE | 2025-01-19 09:28 | MHC.PC.OV ---
Vital Signs 01/19/25 09:29 Height 5 ft 2 in Weight 166 lb 8 oz BMI 30.4 BP 122/62 Blood Pressure Location Lt brachial Position Sitting Pulse 72 Pulse Source Pulse Oximeter Temp 96.9 F Temp Source Temporal Artery Scan Pulse Oximetry (%) 98 Oxygen Delivery Method Room Air Intake Visit Reasons: f/u DM and HTN Intake Note: Patient is here to follow up on DM, HTN. Locks Tender Required: Yes Locks Tender Language: Contact Center Consultant Name: Karen (Daughter) Information Interpreted: non-clinical & clinical (Pt decline head stock operator service, prefer daughter to translate.) Restaurant Host/Hostess: Present Accompanied by: Daughter Allergies aspirin [Aspirin] Allergy (Mild, Verified 01/19/25 09:52) Abdominal Pain Penicillins Allergy (Mild, Verified 01/19/25 09:52) NAUSEA/STOMACH PAIN hydrochlorothiazide Allergy (Unknown, Verified 01/19/25 09:52) hypokalemia lisinopril Allergy (Unknown, Verified 01/19/25 09:52) ? swelling Uespjrr-WII-ZkH Reductase Inhibitor Allergy (Unknown, Verified 01/19/25 09:52) Muscle cramps amlodipine Adverse Reaction (Intermediate, Verified 01/19/25 09:52) leg swelling ibuprofen [From Motrin] Adverse Reaction (Unknown, Verified 01/19/25 09:52) Abdominal Pain Medication List - Last Reconciled 01/19/25 by Virgie Ham PA-C [Adult pull ups- large As directed] albuterol-budesonide 90-80 mcg/actuation (Airsupra) 2 inhalations inhalation BID PRN 30 days aspirin 81 mg PO DAILY 90 days brimonidine 0.2% drps ophthalmic (eye) cholecalciferol (vitamin D3) 50 mcg PO DAILY cyanocobalamin (vitamin B-12) 1,000 mcg PO DAILY ferrous sulfate 325 mg PO BID furosemide 20 mg PO DAILY gabapentin 100 mg PO BEDTIME [grab bar for shower As directed] insulin glargine (Lantus Solostar U-100 Insulin) 14 units (0.14 mL) subcut .qhs latanoprost 0.005% drps ophthalmic (eye) losartan 100 mg PO DAILY metformin ER 1,000 mg (2 x 500 mg) PO BID metoprolol tartrate 100 mg PO BID nebulizers (Altera Nebulizer System) As directed updraft Q 4 hours prn with albuterol netarsudil 0.02% (Rhopressa) drps ophthalmic (eye) pantoprazole 40 mg PO DAILY rosuvastatin 20 mg PO DAILY tirzepatide (Mounjaro) 12.5 mg (0.5 mL) subcut QWEEK tizanidine mg PO BEDTIME [wipes As directed] Tobacco use date assessed: 01/19/25 Fall risk assessment: No Falls in past year Last assessed Fall Risk: 01/19/25 Dental Screening Dental Screen Date: 10/21/24 HPI f/u DM and HTN HPI Details 74-year-old obese female with diabetes mellitus hypertension coronary artery disease hypercholesterolemia anemia and asthma coming in for 3 month follow up last seen 10/2024 coming in for follow up. In review of the notes patient was seen by endocrinology 01/2025 continued on medication and advised to follow up in 1 month. Seen by pulmonology 12/2024 wixela was d/c, started on Airsupra and follow up in 8-12 months. Seen by cardiology 11/2024 continued on aspirin indefinitely, continued on rosuvastatin and Zetia as well as metoprolol and amlodipine and advised to follow up in 6 months.?Seen by GI 11/2024 change to pantoprazole once a day. Presenting with symptoms of asthma exacerbation. Reports increased wheezing and coughing over the past few days. Using an albuterol inhaler twice daily is reported as effective. Breathing difficulties increased since discontinuation of Wixela. The patient previously used Wixela as needed, not as prescribed. Reports fatigue and a daily cough, sometimes productive. No fever, no exposure to sick contacts. Notes exacerbated symptoms due to allergies. [facility] Medical History Diabetic neuropathy GERD (gastroesophageal reflux disease) Type 2 diabetes mellitus with hypoglycemia Pulmonary nodules Hiatal hernia Orthopnea Headache Fall NSTEMI (non-ST elevated myocardial infarction) Lower extremity edema HLD (hyperlipidemia) Colon cancer screening Urinary frequency Pleural effusion, right Nocturia more than twice per night Glaucoma Cataract of left eye Renal cyst Right shoulder pain Preop exam for internal medicine On beta kamryn at home Constipation Abdominal bloating Shoulder pain, right Hip pain, left Vitamin D deficiency Osteoporosis Restless leg syndrome Type 2 diabetes mellitus with diabetic polyneuropathy Nasal congestion Chest pain Tubal ligation evaluation Gastroparesis Adrenal adenoma Pulmonary nodule Fracture of toe of left foot Positive MAGGIE (antinuclear antibody) Osteoarthritis of both knees Osteopenia Ulnar neuropathy Asthma Obesity (BMI 30-39.9) Coronary artery disease Hypercholesterolemia Surgical History History of coronary artery stent placement Hx of right cataract extraction History of esophagogastroduodenoscopy (EGD) Hx of colonoscopy History of breast biopsy History of tubal ligation History of laparoscopic cholecystectomy Family History Mother HTN (hypertension) Diabetes Brother Lung cancer Sister Cancer, colon Daughter Uterine cancer Father Prostate cancer Social History Household Members: Spouse Household Members Other:: Granddaughter is MINER ASSISTANT lives upstairs Housing: Other Housing Other:: m2 family house Are you a primary care asst to a significant other at home: No Do you presently have visiting nurse or other home services: No Alcohol intake: never Patient Tobacco Use Status: Former Tobacco user Tobacco use type: Cigarette e-Cigarette/Vaping Use: Never Used Second Hand Smoke Exposure: Yes service: No Current occupational status: retired and disabled Cognitive needs: No Hearing needs: No Vision needs: Yes (glasses) Questionnaire Thrive Questionnaire Date Thrive assessed: 10/21/24 QUYNH-7 AMB Questionnaire QUYNH-7 Date QUYNH - 7 assessed: 10/21/24 Source: Developed by Drs. Jhon Cedeño, Cara [place], Isaias Michael and colleagues, with an educational joey from [employer]. Review of Systems Const Denies body aches, Denies chills, Denies fever(s), Denies headache(s) and Denies poor appetite Eyes Reports no additional complaints ENT Denies dysphagia, Denies dizziness, Denies headache(s) and Denies odynophagia Card Denies chest pain, Denies syncope, Denies edema, Denies irregular heart rhythm, Denies lightheadedness and Denies dyspnea Resp Reports cough, Denies excessive phlegm production and Denies dyspnea GI Denies abdominal pain, Denies constipation, Denies dysphagia, Denies diarrhea, Denies nausea, Denies odynophagia and Denies vomiting Reports no additional complaints Musc Reports no additional complaints and Denies abnormal gait Skin/Breast Reports system reviewed and no additional complaints, except as documented Neuro Denies abnormal gait, Denies dizziness, Denies syncope and Denies headache(s) Psych Reports no additional complaints Physical exam (Primary Care) Vital Signs: Last Vital Signs Temp 96.9 F 01/19/25 09:29 Pulse 72 01/19/25 09:29 BP 122/62 01/19/25 09:29 Pulse Ox 98 01/19/25 09:29 Oxygen Delivery Method Room Air 01/19/25 09:29 BMI result Body Mass Index 30.4 Tobacco/Smoking Status: Tobacco use Status Tobacco use date assessed 01/19/25 01/19/25 09:38 Patient Tobacco Use Status Former Tobacco user 01/19/25 09:38 Tobacco use type Cigarette 01/19/25 09:38 e-Cigarette/Vaping Use Never Used 01/19/25 09:38 Thrive Assessment: Date of Thrive Assessment Date Thrive assessed 10/21/24 01/19/25 09:38 Const General: cooperative, healthy appearing, comfortable and no acute distress Orientation/consciousness: patient oriented x3 HENMT Head: Yes normocephalic Ears: hearing grossly normal bilaterally General nose exam: Normal external nose present Eyes General: appearance normal, both eyes and all related structures Conjunctivae: conjunctivae normal Neck Neck: Yes full ROM and Yes no lymphadenopathy Resp Effort & Inspection: normal respiratory effort Auscultation: clear to auscultation bilaterally, no crackles, no rales, no rhonchi and no wheezes Cardio Rate: regular rate Rhythm: regular rhythm Skin General skin exam: no rashes or lesions noted Neuro General: patient oriented x3 Gait exam (Neuro): Normal gait present Extrem General: Yes normal to inspection, Yes full ROM and No edema Psych Affect: normal affect Attitude: cooperative Insight: Good insight present (Psych) Judgement: Good judgement present (Psych) Coding Level of Care Code Est Pt Level 3 (37404) Diagnoses Type 2 diabetes mellitus with hyperglycemia, unspecified whether intermodal customer service insulin use E11.65 Diabetes mellitus care home insulin use: unspecified intermodal customer service insulin use status Hypertension I10 Hypercholesterolemia E78.00 Coronary artery disease involving red devil coronary artery of red devil heart without angina pectoris I25.10 Associated angina: without angina Coronary Disease-Associated Artery/Lesion type: red devil artery [place] vs. transplanted heart: red devil heart Obesity (BMI 30-39.9) E66.9 Left wrist pain M25.532 Gastroesophageal reflux disease without esophagitis K21.9 Esophagitis presence: without esophagitis Cough R05.9 Assessment & Plan Assessment & Plan (1) Type 2 diabetes mellitus with hyperglycemia: Comment: Angel Guerra Code(s): E11.65 - Type 2 diabetes mellitus with hyperglycemia Category: Medical Qualifiers: Diabetes mellitus care home insulin use: unspecified care home insulin use status Qualified Code(s): E11.65 - Type 2 diabetes mellitus with hyperglycemia Plan: Decrease the amount of carbohydrates such as pasta, bread, rice, and potatoes and limit the amount of sweets. Although fruits are generally healthy they should be eaten in moderation as they are still high in sugar. Hemoglobin A1c goal of less than 7%. A1c 7.9% on last blood work and is currently following with endocrinology for management. (2) Hypertension: Code(s): I10 - Essential (primary) hypertension Category: Medical Plan: Continue on current blood pressure medication. Avoid salt intake and encourage healthy diet and regular exercise. (3) Hypercholesterolemia: Comment: Patient cannot tolerate statins Code(s): E78.00 - Pure hypercholesterolemia, unspecified Category: Medical Plan: Avoid foods that are high in cholesterol such as red meat, fried foods, eggs and baked goods. Triglyceride goal of less than 150 and LDL goal of less than 70. Last LDL within normal limits (4) Coronary artery disease: Comment: echo normal LV 60-65% June 2019, May 2023 distal LAD drug-eluting stent Code(s): I25.10 - Atherosclerotic heart disease of red devil coronary artery without angina pectoris Category: Medical Qualifiers: Associated angina: without angina Coronary Disease-Associated Artery/Lesion type: red devil artery [place] vs. transplanted heart: red devil heart Qualified Code(s): I25.10 - Atherosclerotic heart disease of red devil coronary artery without angina pectoris Plan: Advised good control of blood pressure, cholesterol and blood sugars. Blood sugars are uncontrolled at this time and is currently following with endocrinology. (5) Obesity (BMI 30-39.9): Code(s): E66.9 - Obesity, unspecified Category: Medical Plan: Healthy diet and regular exercise is encouraged. (6) Left wrist pain: Code(s): M25.532 - Pain in left wrist Category: Medical Plan: X-ray was obtained at last visit revealing normal left wrist. She was referred to Orthopedics by her GI specialist and has an appointment coming up. (7) GERD (gastroesophageal reflux disease): Code(s): K21.9 - Gastro-esophageal reflux disease without esophagitis Category: Medical Qualifiers: Esophagitis presence: without esophagitis Qualified Code(s): K21.9 - Gastro-esophageal reflux disease without esophagitis Plan: Avoid trigger foods such as citrus, tomato products, soda, caffeine, spicy foods and other foods that may be irritating to your stomach. Avoid laying flat 3-4 hours after eating and elevate the head of the bed 30 degrees to prevent acid from moving into the esophagus. Continue on pantoprazole and continue to follow with GI (8) Cough: Code(s): R05.9 - Cough, unspecified Category: Medical Plan: I addressed the patient's increased asthma symptoms and proposed consulting the data warehouse developer to revisit the treatment plan, considering a maintenance medication might be required following the discontinuation of Wixela. The benefits of allergy medication were discussed due to the seasonal exacerbation of symptoms and viral testing was ordered to ensure thorough evaluation of contributing factors to her respiratory symptoms, ruling out possible infections. Lungs are clear to auscultation bilaterally without wheezing steroids not indicated at this time due to lack of wheeze and poor sugar control. I did advised patient to reach out to pulmonology for further evaluation as well. Plan I emphasized the importance of strict blood sugar control and follow-up with endocrinology by the end of the month to re-evaluate diabetes management. Wheel Lacer And Truer input assured current lipid regulation, with recommendations to concentrate on improved blood sugar levels. Consent for diagnostic strategies and discharge were fully detailed to the patient. This note was constructed using voice recognition software. While every effort has been made to ensure accuracy and cipher expert, still areas may have been included sometimes these areas may affect the content or meeting of the given symptoms. Total time spent caring for the patient today was 20 minutes. This includes time spent before the visit reviewing the chart, time spent during the visit, and time spent after the visit and documentation. Patient was informed and verbally consented to the use of an ambient scribe for clinic note documentation during this visit. Orders: Orders SARS-CoV2/FLU/RSV Today R09.89 - Other specified symptoms and signs involving the circulatory and respiratory systems Medications: New cetirizine (Zyrtec) 10 mg PO DAILY 30 caps 0RF allergy symptoms
[2025-01-19 09:29] VITALS: BP 122/62; PULSE 72; TEMP 36.1; O2SAT 98; BMI 30.4
--- OUTSIDE RECORDS SUMMARY | 2025-01-19 09:33 | XMS_ITS | Clinical Summary ---
Author Organization [facility] ity Address [address] [place] [address] Care Team Providers Care Application Services Manager Name Role Phone Junior Zayas MD Primary Care Provider [phone] Social History Tobacco Use Types Packs/Day Years [...] age to complete this topic Care Teams Application Services Manager Relationship Specialty Start Date End Date Junior Zayas MD [address] [place] [address] [address] [facility] [place] [address] PCP - General 05/18/16
--- OUTSIDE RECORDS SUMMARY | 2025-01-19 09:33 | XMS_ITS | Continuity of Care Document ---
Author Organization [facility] Address [address] [address] Phone Care Team Providers Care Card Punching Machine Operator Name Role Phone [place] Amy KNIGHT Unavailable Unavailable Advance Directives Directive Yes / No Effective Date File Name No Information Encounters Encounter Description Practice Location Reason(s) For Visit Diagnoses Date Provider [facility], [address] [address], [place], [place], [id number], tel:[phone] No Information [address] [place] [address] [place], [address]. tel:[phone] Family History Family Member Type Diagnosis Age [...]
== END 2025-01-19 10:20 | disposition home or self-care (01) ==
LOC: HO.HMCH 09:25
PROVIDERS: PCP Internal Medicine
DX: E11.65 Type 2 diabetes mellitus with hyperglycemia (principal); I10 Essential (primary) hypertension; E66.9 Obesity, unspecified; Z68.30 Body mass index [BMI] 30.0-30.9, adult; E78.00 Pure hypercholesterolemia, unspecified; I25.10 Atherosclerotic heart disease of native coronary artery without angina pectoris; M25.532 Pain in left wrist; K21.9 Gastro-esophageal reflux disease without esophagitis; R05.9 Cough, unspecified

== ENCOUNTER 2025-01-19 09:25 | Outpatient (REF) | payer OTHER, SELFPAY ==
--- OUTSIDE RECORDS SUMMARY | 2025-01-19 11:46 | XMS_ITS | Continuity of Care Document ---
Author Organization [facility] Address [address] [address] Phone Care Team Providers Care Health And Human Performance Professor Name Role Phone [place] Amy KNIGHT Unavailable Unavailable Advance Directives Directive Yes / No Effective Date File Name No Information Encounters Encounter Description Practice Location Reason(s) For Visit Diagnoses Date Provider [facility], [address] [address], [place], [place], [id number], tel:[phone] No Information [address] [place] [address] [place], [address]. tel:[phone] Family History Family Member Type Diagnosis Age [...]
--- OUTSIDE RECORDS SUMMARY | 2025-01-19 11:46 | XMS_ITS | Clinical Summary ---
Author Organization [facility] ity Address [address] [place] [address] Care Team Providers Care Traffic Engineer Name Role Phone Junior Zayas MD Primary Care Provider [phone] Social History Tobacco Use Types Packs/Day Years [...] age to complete this topic Care Teams Traffic Engineer Relationship Specialty Start Date End Date Junior Zayas MD [address] [place] [address] [address] [facility] [place] [address] PCP - General 05/18/16
[2025-01-19 12:18] LABS: Influenza A PCR NEGATIVE (Negative); Influenza B PCR NEGATIVE (Negative); Resp Syncy Virus RNA Qual PCR NEGATIVE (Negative); SARS COV2 PCR INHOUSE NEGATIVE (Negative)
== END 2025-01-19 09:26 | disposition home or self-care (01) ==
LOC: HO.LAB 09:25
PROVIDERS: PCP Internal Medicine
DX: E11.65 Type 2 diabetes mellitus with hyperglycemia (principal); I10 Essential (primary) hypertension; E78.00 Pure hypercholesterolemia, unspecified; I25.10 Atherosclerotic heart disease of native coronary artery without angina pectoris; E66.9 Obesity, unspecified; Z68.30 Body mass index [BMI] 30.0-30.9, adult; M25.532 Pain in left wrist; K21.9 Gastro-esophageal reflux disease without esophagitis; R09.89 Other specified symptoms and signs involving the circulatory and respiratory systems; Z79.899 Other long term (current) drug therapy
CPT/HCPCS: 0241U; 99212

== ENCOUNTER 2025-02-06 09:03 | Outpatient (AMB) | payer OTHER, SELFPAY ==
--- NOTE | 2025-02-06 09:04 | A.OFFVIS_ITS ---
Vital Signs 02/06/25 09:06 Height 5 ft 2 in Weight 163 lb 9.328 oz BMI 29.9 BP 142/74 H Blood Pressure Location Lt brachial Position Sitting Pulse 90 Pulse Source Pulse Oximeter Pulse Oximetry (%) 98 Oxygen Delivery Method Room Air Intake Visit Reasons: T2DM Intake Note: Patient present today to follow up on Type 2 Diabetes Mellitus. Last Diabetic Eye exam: 07/02/2024 Last Podiatry Visit: Does not see a Flake Or Shred Roll Operator Random Glucose: 150 mg/dl HgA1C: 7.9% 01/09/2025 Environmental Services Director Required: Yes Environmental Services Director Language: Lead Systems Architect Services: Environmental Services Director Offered & Declined Accompanied by: Self / Same As Patient Allergies aspirin [Aspirin] Allergy (Mild, Verified 02/06/25 09:07) Abdominal Pain Penicillins Allergy (Mild, Verified 02/06/25 09:07) NAUSEA/STOMACH PAIN hydrochlorothiazide Allergy (Unknown, Verified 02/06/25 09:07) hypokalemia lisinopril Allergy (Unknown, Verified 02/06/25 09:07) ? swelling Ddgxeuh-JRZ-JdQ Reductase Inhibitor Allergy (Unknown, Verified 02/06/25 09:07) Muscle cramps amlodipine Adverse Reaction (Intermediate, Verified 02/06/25 09:07) leg swelling ibuprofen [From Motrin] Adverse Reaction (Unknown, Verified 02/06/25 09:07) Abdominal Pain Medication List - Last Reconciled 02/06/25 by LEOBARDO Smith [Adult pull ups- large As directed] albuterol-budesonide 90-80 mcg/actuation (Airsupra) 2 inhalations inhalation BID PRN 30 days aspirin 81 mg PO DAILY 90 days brimonidine 0.2% drps ophthalmic (eye) cetirizine (Zyrtec) 10 mg PO DAILY cholecalciferol (vitamin D3) 50 mcg PO DAILY cyanocobalamin (vitamin B-12) 1,000 mcg PO DAILY ferrous sulfate 325 mg PO BID furosemide 20 mg PO DAILY gabapentin 100 mg PO BEDTIME [grab bar for shower As directed] insulin degludec (Tresiba FlexTouch U-200 insulin) 14 units (0.07 mL) subcut BEDTIME latanoprost 0.005% drps ophthalmic (eye) losartan 100 mg PO DAILY metformin ER 1,000 mg PO QAM metoprolol tartrate 100 mg PO BID nebulizers (Altera Nebulizer System) As directed updraft Q 4 hours prn with albuterol netarsudil 0.02% (Rhopressa) drps ophthalmic (eye) pantoprazole 40 mg PO DAILY rosuvastatin 20 mg PO DAILY tirzepatide (Mounjaro) 12.5 mg (0.5 mL) subcut QWEEK tizanidine mg PO BEDTIME [wipes As directed] HPI Comments Details: This is a 74-year-old female with a past medical history of coronary artery disease, type 2 diabetes, hyperlipidemia, osteopenia, adrenal adenoma, osteoporosis and hypertension presenting for diabetic management. Her daughter, Roya, provides history and interpretation. They declined video marine specialist. Reviewed Dexcom clarity data G MO 7.4% 8% very high 32% high 60% in range 0% hypoglycemia She has some postprandial hyperglycemia particularly after breakfast. She has not changed her diet. She still has coffee with milk and sugar and rice every day. Hemoglobin a1c 7.9% today 01/09/25. Current medication regimen: Insulin glargine 10 units at bedtime, Mounjaro 12.5 mg weekly, metformin ER 1000 mg twice daily. Insulin glargine was reduced from 14-10 units at her last visit due to hypoglycemia symptoms several times per week at night. Patient says this resolved. She brings up having chronic diarrhea. No abdominal pain or blood in stools. She is unsure if it is related to the medications. Compliance issues: She is taking her medications. Hypoglycemia symptoms: None Hyperglycemia symptoms: none Eye exam: 07/02/24 Microvascular complications: neuropathy treated with gabapentin Macrovascular complications: CAD Hypertension: treated with losartan 100 mg, metoprolol 100 mg twice a day, Lasix 20 mg. her blood pressure is elevated today. She had a coffee before the appointment. Hyperlipidemia: treated with Rosuvastatin 20 mg. ROS: Constitutional: No unexplained weight loss, fever, chills, fatigue. Eyes: No vision change Gastrointestinal: No anorexia, nausea, vomiting or diarrhea. No abdominal pain Skin: No open wounds or rashes. Physical exam: Constitutional: Alert, in no distress. Neck: Supple, Full range of motion. No lymphadenopathy. No palpable thyroid masses. Respiratory: Clear to auscultation. Cardiovascular: S1 S2 regular. No murmurs. PFSH Medical History Diabetic neuropathy GERD (gastroesophageal reflux disease) Type 2 diabetes mellitus with hypoglycemia Pulmonary nodules Hiatal hernia Orthopnea Headache Fall NSTEMI (non-ST elevated myocardial infarction) Lower extremity edema HLD (hyperlipidemia) Colon cancer screening Urinary frequency Pleural effusion, right Nocturia more than twice per night Glaucoma Cataract of left eye Renal cyst Right shoulder pain Preop exam for internal medicine On beta kamryn at home Constipation Abdominal bloating Shoulder pain, right Hip pain, left Vitamin D deficiency Osteoporosis Restless leg syndrome Type 2 diabetes mellitus with diabetic polyneuropathy Nasal congestion Chest pain Tubal ligation evaluation Gastroparesis Adrenal adenoma Pulmonary nodule Fracture of toe of left foot Positive YEIMY (antinuclear antibody) Osteoarthritis of both knees Osteopenia Ulnar neuropathy Asthma Obesity (BMI 30-39.9) Coronary artery disease Hypercholesterolemia Surgical History History of coronary artery stent placement Hx of right cataract extraction History of esophagogastroduodenoscopy (EGD) Hx of colonoscopy History of breast biopsy History of tubal ligation History of laparoscopic cholecystectomy Family History Mother HTN (hypertension) Diabetes Brother Lung cancer Sister Cancer, colon Daughter Uterine cancer Father Prostate cancer Social History Household Members: Spouse Household Members Other:: Granddaughter is SOLAR TECHNICIAN lives upstairs Housing: Other Housing Other:: m2 family house Are you a primary disabilities caregiver to a significant other at home: No Do you presently have visiting nurse or other home services: No Alcohol intake: never Patient Tobacco Use Status: Former Tobacco user Tobacco use type: Cigarette e-Cigarette/Vaping Use: Never Used Second Hand Smoke Exposure: Yes service: No Current occupational status: retired and disabled Cognitive needs: No Hearing needs: No Vision needs: Yes (glasses) Physical Exam Vital Signs: Last Vital Signs Pulse 90 02/06/25 09:06 BP 142/74 H 02/06/25 09:06 Pulse Ox 98 02/06/25 09:06 Oxygen Delivery Method Room Air 02/06/25 09:06 BMI result Body Mass Index 29.9 Office Procedures Glucose Monitoring Details Details: see HPI 89886 - Glucose monitoring, continuous-physician I&R Procedure code (CPT) selection complete Results Reviewed Results Reviewed: Laboratory Last Values Glucose (Clinic) 150 mg/dL (60-115) H 02/06/25 09:10 Laboratory Tests 12/07/23 12/07/23 03/30/24 09:18 09:20 12:56 Creatinine 0.72 Estimated GFR > 60 Hemoglobin A1c % 7.7 H ALT 16 Alkaline Phosphatase 71 Triglycerides 68 Cholesterol 110 LDL Cholesterol, Calc 46 HDL Cholesterol 51 TSH 2.52 Free T4 0.93 Urine Creatinine 73.93 Urine Microalbumin 9.0 Microalb/Creat Ratio 12.1 Assessment & Plan Assessment & Plan (1) Type 2 diabetes mellitus with hypoglycemia: Code(s): E11.649 - Type 2 diabetes mellitus with hypoglycemia without coma Category: Medical Qualifiers: Diabetes mellitus jail insulin use: with manager terminal use Diabetes mellitus complication detail: without coma Qualified Code(s): E11.649 - Type 2 diabetes mellitus with hypoglycemia without coma; Z79.4 - [facility] (current) use of insulin (2) Diabetic neuropathy: Code(s): E11.40 - Type 2 diabetes mellitus with diabetic neuropathy, unspecified Category: Medical Qualifiers: Diabetes mellitus type: type 2 Diabetes mellitus complication detail: diabetic mononeuropathy Qualified Code(s): E11.41 - Type 2 diabetes mellitus with diabetic mononeuropathy (3) Hypertension: Code(s): I10 - Essential (primary) hypertension Category: Medical Plan In summary this is a 74-year-old female with suboptimally controlled type 2 diabetes. Discussed pathophysiology of Type II Diabetes Mellitus with the patient in detail.? I explained the manager terminal risks and complications associated with uncontrolled diabetes including nephropathy, neuropathy, peripheral vascular disease, retinopathy, increased risk of heart disease and stroke.? Lifestyle modification, diabetic diet reviewed with the patient and her daughter. We reviewed the data from her Dexcom which shows what she is eating they during the day is affecting her blood sugars. Blood sugars overnight are good. She declined referral to the dietitian and clinical nurse educator. Reduce Metformin ER to 1000 mg qam due to diarrhea reported. Increase long acting insulin to 14 units and switch to Tresiba given episodes of hypoglycemia on higher dose of Lantus. Continue Mounjaro 12.5 mg weekly. She was instructed to call if blood sugars are over 200. Reviewed treatment of hypoglycemia. Patient says she has glucose tablets at home. Written instructions provided. Continue gabapentin 100 mg at bedtime for neuropathy. Continue current regimen for blood pressure. Her blood pressure is mildly elevated today, but it was normal on 01/19/2015. Recheck at next appointment. Follow up in 1 month for type 2 diabetes. She will have lab work done. Orders: Orders Lipid Panel Today E78.5 - Hyperlipidemia, unspecified Vitamin B12 Today Z91.89 - Other specified personal risk factors, not elsewhere classified Microalbumin, Random (w Creat) Today E11.9 - Type 2 diabetes mellitus without complications AMB Glucose Monitoring Today E11.9 - Type 2 diabetes mellitus without complications Medications: New insulin degludec (Tresiba FlexTouch U-200 insulin) Replaces lantus (insulin glargine) 14 units (0.07 mL) subcut BEDTIME 9 mL 5RF Changed From metformin ER 1,000 mg (2 x 500 mg) PO BID 360 tabs 3RF To metformin ER 1,000 mg PO QAM Discontinued insulin glargine (Lantus Solostar U-100 Insulin) Discontinued Reason: Doctor's Order 14 units (0.14 mL) subcut .qhs 15 mL 5RF Patient Instructions: Stop Lantus and start Tresiba 14 units at bedtime. Decrease Metformin 500 mg to 2 tablets in the morning. Do not take 2 tablets in the evening anymore. Continue Mounjaro 12.5 mg weekly. If you experience low blood sugar, treat this by eating a chewable fruit candy like skittles or jelly beans (about 8 pieces), 4 ounces (1/2 cup) of fruit juice (not diet), 1 tablespoon of honey or 4 glucose tablets. If your blood sugar is under 55, take double the amount of one of the above. Recheck your blood sugar in 15 minutes. Suspenda Lantus y comience con Tresiba 14 unidades antes de acostarse. Reduzca la dosis de Metformina 500 mg a 2 comprimidos por la ma?yeimy. No tome m?s 2 comprimidos por la noche. Contin?e con Mounjaro 12,5 mg semanalmente. Si experimenta hipoglucemia, tr?chela comiendo un caramelo masticable de fruta renetta Skittles o Jelly Beans (aproximadamente 8 piezas), 113 ml (1/2 taza) de jugo de fruta (no light), 1 cucharada de miel o 4 comprimidos de glucosa. Si velásquez nivel de az?car en adi es inferior a 55, tome el doble de la dosis de alguno de los anteriores. Vuelva a medir velásquez nivel de az?car en adi en 15 minutos. Coding Level of Care Code Est Pt Level 4 (62498) Diagnoses Type 2 diabetes mellitus with hypoglycemia without coma, with long-term current use of insulin E11.649; Z79.4 Diabetes mellitus jail insulin use: with manager terminal use Diabetes mellitus complication detail: without coma Diabetic mononeuropathy associated with type 2 diabetes mellitus E11.41 Diabetes mellitus type: type 2 Diabetes mellitus complication detail: diabetic mononeuropathy Hypertension I10 CPT Codes Details - CPT: 37990 - Glucose monitoring, continuous-physician I&R ([id number])
[2025-02-06 09:06] VITALS: BP 142/74; PULSE 90; O2SAT 98; BMI 29.9
--- OUTSIDE RECORDS SUMMARY | 2025-02-06 09:10 | XMS_ITS | Clinical Summary ---
Author Organization [employer] [facility] ity Address [address] [place] [address] Care Team Providers Care Agency Appointments Supervisor Name Role Phone Junior Zayas MD Primary Care Provider [phone] Social History Tobacco Use Types Packs/Day Years [...] age to complete this topic Care Teams Agency Appointments Supervisor Relationship Specialty Start Date End Date Junior Zayas MD [address] [place] [address] [address] [facility] [place] [address] PCP - General 05/18/16
[2025-02-06 09:14] LABS: Glucose, Whole Blood 150 mg/dL (60-115)
== END 2025-02-06 09:46 | disposition home or self-care (01) ==
LOC: HO.ENCR 09:03
PROVIDERS: PCP Internal Medicine; Visit Provider Physician Assistant Medical
DX: E11.649 Type 2 diabetes mellitus with hypoglycemia without coma (principal); Z79.4 Long term (current) use of insulin; E11.41 Type 2 diabetes mellitus with diabetic mononeuropathy; I10 Essential (primary) hypertension

== ENCOUNTER → 2025-02-06 09:03 | Outpatient (BNVA) | payer OTHER, SELFPAY | PROVIDERS: PCP Internal Medicine; Visit Provider Physician Assistant Medical | DX: E11.649 Type 2 diabetes mellitus with hypoglycemia without coma (principal); E11.41 Type 2 diabetes mellitus with diabetic mononeuropathy; I10 Essential (primary) hypertension; Z79.4 Long term (current) use of insulin; Z79.84 Long term (current) use of oral hypoglycemic drugs; Z79.899 Other long term (current) drug therapy | CPT/HCPCS: 82947; 99212 ==

== ENCOUNTER 2025-02-20 07:49 | Outpatient (REF) | payer OTHER, SELFPAY ==
--- OUTSIDE RECORDS SUMMARY | 2025-02-20 07:51 | XMS_ITS | Clinical Summary ---
Author Organization [facility] [employer] ity Address [address] [place] [address] Care Team Providers Care Network Solutions Architect Name Role Phone Junior Zayas MD Primary Care Provider [phone] Social History Tobacco Use Types Packs/Day Years [...] age to complete this topic Care Teams Network Solutions Architect Relationship Specialty Start Date End Date Junior Zayas MD [address] [place] [address] [address] [facility] [place] [address] PCP - General 05/18/16
[2025-02-20 08:34] LABS: Alanine Aminotransferase 16 U/L (0-31); Aspartate Amino Transferase 22 U/L (5-31); Cholesterol 129 mg/dL (<200); Estimated Glomerular Filt Rate > 60; HDL Cholesterol 53 mg/dL (>40); LDL Cholesterol Calculated 63 mg/dL (<100); Triglycerides 65 mg/dL (<150)
[2025-02-20 09:03] LABS: Vitamin B12 950 pg/mL (200-900)
[2025-02-20 09:16] LABS: Creatinine Urine 193.95 mg/dL
== END 2025-02-20 07:50 | disposition home or self-care (01) ==
LOC: HO.LAB 07:49
PROVIDERS: PCP Physician Assistant Medical; Visit Provider Physician Assistant Medical
DX: E11.65 Type 2 diabetes mellitus with hyperglycemia (principal); E78.5 Hyperlipidemia, unspecified; Z91.89 Other specified personal risk factors, not elsewhere classified
CPT/HCPCS: 36415; 80061; 82043; 82565; 82570; 82607; 84450; 84460

== ENCOUNTER 2025-03-08 20:03 | Emergency (ER) | payer OTHER, SELFPAY ==
--- NOTE | ~2025-03-08 | CT_ITS ---
CLINICAL HISTORY: unsteady walking CT head without contrast Comparison: CT/SR - CT HEAD/BRAIN WO IV CON - 07/25/24 07:36 EST Findings: No intra-axial mass, midline shift, hydrocephalus, or acute hemorrhage. Partially empty sella. No significant atrophy-like change or white matter disease. Intracranial atherosclerosis. There is no sinus or mastoid fluid. No acute findings in the orbits. There is no acute fracture. IMPRESSION: 1. No acute intracranial findings. This document has been electronically signed by: Barbara Jones MD on 03/09/2025 00:06:36
[2025-03-08 20:08] VITALS: BP 149/63; PULSE 70; RESP 16; TEMP 36.6; O2SAT 100; BMI 30.2
--- NOTE | 2025-03-08 20:09 | ECG_ITS ---
Test Reason : weakness Blood Pressure : */* mmHG Vent. Rate : 68 BPM Atrial Rate : 68 BPM P-R Int : 148 ms QRS Dur : 84 ms QT Int : 414 ms P-R-T Axes : 52 2 61 degrees QTcB Int : 440 ms Normal sinus rhythm Normal ECG When compared with ECG of 30-Mar-2024 12:56, No significant change was found Referred By: Narda Babcock Electronically Signed By: JUAN CHAVEZ MD
--- NOTE | 2025-03-08 20:10 | ED.GENADULT ---
HPI - General Adult General Chief complaint: General Medical Stated complaint: weak, dehydrated, just not feeling like herself Time Seen by Provider: 03/08/25 21:46 History of Present Illness ED Provider: Bernadine GOMEZ narrative: The patient is a 74-year-old woman with a history of type 2 diabetes. She also has a history of coronary artery disease and had an NSTEMI in 2022. She is on a baby aspirin daily. She apparently has not been feeling well for about a week. She has been feeling a general sense of fatigue and weakness. She says that she has felt dehydrated. She has felt that her feet has been somewhat swollen. She has felt that she has had some unsteadiness with walking. No headache. No chest pain. No abdominal pain. No shortness of breath. No cough or sputum. No fever, sweats, chills. She is here with her daughter. The patient is primarily [place] speaking and preferred her daughter to be her rubber compounder. The daughter says that she thought that she ought to bring her mother to the hospital for evaluation because she had not seemed quite right for about a week. Related Data Home Medications ?Medication ?Instructions ?Recorded ?Confirmed brimonidine 0.2 % eye drops drp ophthalmic (eye) 02/15/24 01/19/25 latanoprost 0.005 % eye drops drp ophthalmic (eye) 02/15/24 01/19/25 netarsudil 0.02 % eye drops drp ophthalmic (eye) 10/20/24 01/19/25 (Rhopressa) tizanidine 4 mg tablet mg PO BEDTIME 11/19/24 01/19/25 metformin 500 mg tablet,extended 1,000 mg PO QAM 02/06/25 02/06/25 release 24 hr Previous Rx's ?Medication ?Instructions ?Recorded nebulizers (Altera Nebulizer #1 ea 06/29/20 System) metoprolol tartrate 100 mg tablet 100 mg PO BID #180 tabs 07/29/24 Adult pull ups- large #300 ea 09/05/24 wipes #2 ea 09/05/24 aspirin 81 mg tablet,delayed 81 mg PO DAILY 90 days #90 tabs 10/03/24 release ferrous sulfate 325 mg (65 mg 325 mg PO BID #56 tabs 10/03/24 iron) tablet,delayed release rosuvastatin 20 mg tablet 20 mg PO DAILY #30 tabs 10/03/24 furosemide 20 mg tablet 20 mg PO DAILY #90 tabs 11/07/24 cyanocobalamin (vitamin B-12) 1,000 mcg PO DAILY #90 tabs 11/10/24 1,000 mcg tablet pantoprazole 40 mg tablet,delayed 40 mg PO DAILY #90 tabs 11/19/24 release tirzepatide 12.5 mg/0.5 mL 12.5 mg (0.5 mL) subcut QWEEK #2 mL 12/05/24 subcutaneous pen injector (Tunde) grab bar for shower #1 ea 12/08/24 losartan 100 mg tablet 100 mg PO DAILY #30 tabs 12/23/24 albuterol 90 mcg-budesonide 80 2 inh inhalation BID PRN shortness 01/05/25 mcg/actuation HFA aerosol inhaler of breath 30 days #10.7 grams (Airsupra) cetirizine 10 mg capsule (Zyrtec) 10 mg PO DAILY allergy symptoms 01/19/25 #30 caps cholecalciferol (vitamin D3) 50 50 mcg PO DAILY #90 caps 01/22/25 mcg (2,000 unit) capsule insulin degludec 200 unit/mL (3 14 unit (0.07 mL) subcut BEDTIME 02/06/25 mL) subcutaneous pen (Tresiba #9 mL FlexTouch U-200 insulin) gabapentin 100 mg capsule 100 mg PO BEDTIME #90 caps 02/17/25 triamcinolone acetonide 0.5 % 1 appl topical BID #30 grams 02/25/25 topical cream Allergies Allergy/AdvReac Type Severity Reaction Status Date / Time aspirin (Aspirin) Allergy Mild Abdominal Verified 03/08/25 20:10 Pain Penicillins Allergy Mild NAUSEA/STOMACH Verified 03/08/25 20:10 PAIN hydrochlorothiazide Allergy Unknown hypokalemia Verified 03/08/25 20:10 lisinopril Allergy Unknown ? swelling Verified 03/08/25 20:10 Zcltopc-SIN-KsW Reductase Allergy Unknown Muscle Verified 03/08/25 20:10 Inhibitor cramps amlodipine AdvReac Intermediate leg Verified 03/08/25 20:10 swelling ibuprofen (From Motrin) AdvReac Unknown Abdominal Verified 03/08/25 20:10 Pain Review of Systems Review of Systems: Yes all other systems are reviewed and are negative [facility] Past Medical History Medical History Diabetic neuropathy GERD (gastroesophageal reflux disease) Type 2 diabetes mellitus with hypoglycemia Pulmonary nodules Hiatal hernia Orthopnea Headache Fall NSTEMI (non-ST elevated myocardial infarction) Lower extremity edema HLD (hyperlipidemia) Colon cancer screening Urinary frequency Pleural effusion, right Nocturia more than twice per night Glaucoma Cataract of left eye Renal cyst Right shoulder pain Preop exam for internal medicine On beta kamryn at home Constipation Abdominal bloating Shoulder pain, right Hip pain, left Vitamin D deficiency Osteoporosis Restless leg syndrome Type 2 diabetes mellitus with diabetic polyneuropathy Nasal congestion Chest pain Tubal ligation evaluation Gastroparesis Adrenal adenoma Pulmonary nodule Fracture of toe of left foot Positive MAGGIE (antinuclear antibody) Osteoarthritis of both knees Osteopenia Ulnar neuropathy Asthma Obesity (BMI 30-39.9) Coronary artery disease Hypercholesterolemia Surgical History History of coronary artery stent placement Hx of right cataract extraction History of esophagogastroduodenoscopy (EGD) Hx of colonoscopy History of breast biopsy History of tubal ligation History of laparoscopic cholecystectomy Family History Family History Mother HTN (hypertension) Diabetes Brother Lung cancer Sister Cancer, colon Daughter Uterine cancer Father Prostate cancer Social History Social History Household Members: Spouse Household Members Other:: Granddaughter is [employer] lives upstairs Housing: Other Housing Other:: m2 family house Are you a primary youth care professional to a significant other at home: No Do you presently have visiting nurse or other home services: No Alcohol intake: never Patient Tobacco Use Status: Former Tobacco user Tobacco use type: Cigarette e-Cigarette/Vaping Use: Never Used Second Hand Smoke Exposure: Yes Advance Directives: No Advance Directives Information Provided: No Do you have a plan to hurt others: No Plan service: No Current occupational status: retired and disabled Cognitive needs: No Hearing needs: No Vision needs: Yes (glasses) Physical Exam ED Vital Signs: Vital Signs - 24 hr 03/08/25 20:08 03/09/25 00:46 Temperature 97.8 F 0 F L Pulse Rate 70 72 Respiratory Rate 16 20 Blood Pressure 149/63 H 177/75 H Pulse Oximetry 100 94 Oxygen Delivery Method Room Air Room Air BMI result Body Mass Index 30.2 Const Other: The patient is a 74-year-old woman who was awake, alert, pleasant, cooperative. She looks entirely well. She does not seem in any distress. No obvious discomfort, no respiratory distress, no obvious neurological deficit. HENMT Other: The face is symmetrical. Mucous membranes moist. Eyes General: appearance normal, both eyes and all related structures Alignment and Position: alignment normal Eyelids: Yes eyelids normal Conjunctivae: conjunctivae normal Pupils: Equal, round and reactive pupils present EOM: EOMs intact bilaterally Neck Neck: Yes normal visual inspection, Yes full ROM, Yes no lymphadenopathy and Yes no JVD Resp Effort & Inspection: normal respiratory effort Auscultation: clear to auscultation bilaterally Cardio Rate: regular rate Rhythm: regular rhythm Heart sounds: S1 normal heart sound present and S2 normal heart sound present GI Other: Abdomen is soft and nontender Skin Other: Skin is dry and unremarkable. General skin exam: no rashes or lesions noted Neuro Other: The patient is awake and alert with a normal mental status. Pupils are round, equal, reactive to light, extraocular movements are intact. The face is symmetrical. Speech is clear. Neck is supple. She has normal strength in all 4 extremities. Finger-nose is normal. I felt she ambulated well although she complained of feeling mildly unsteady when she walked. I do not appreciate any broad-based gait or any other objective gait abnormality. Cranial nerves: Yes Equal, round and reactive pupils present Extrem Other: No calf swelling or tenderness. No peripheral edema. No asymmetry. Course Course Course Narrative: 03/08/252009 LEOBARDO Doherty This is a Rapid Medical Examination (RME) performed by Vu Babcock PA-C in triage. Full HPI, ROS, assessment and treatment plan per primary provider in the Main ED. Hx: 74 yo F hx here w/ daughter for eval of increased generalized weakness, fatigue, swollen legs, and feeling dehydrated x1 week. Plan: labs, ekg, UA Medical Decision Making Medical Decision Making MDM Narrative: The patient is a 74-year-old woman who was encouraged to come to the emergency room by her daughter after having a proximally 1 week of symptoms. The patient characterizes the symptoms as primarily consisting of fatigue and a sense of unsteadiness or dizziness while walking. Clinically the patient looks entirely well. Her vital signs are unremarkable. I do not appreciate any objective neurological deficits. Her EKG is normal. She has a normal white blood count. She has no left shift on Her differential. Her metabolic labs are unremarkable. Her troponin is normal after a week of symptoms. BNP is normal. TSH is normal. Her urinalysis is mildly abnormal but she did not mention any urinary symptoms and she does not seem systemically ill in any way. I doubt that a UTI would account for her symptoms. CT of the brain was negative. My overall impression was that the patient looks quite well and I do not find an acute problem to account for her symptoms. She said that she has been anemic in the past and she was curious to know if she was anemic currently and could not account for her symptoms. That does not seem to be the case. Her hemoglobin is 12.6. Overall the patient seemed relieved that her workup was unremarkable and seemed happy to be discharged. Lab Data 03/08/25 20:30 03/08/25 20:30 Labs: Lab Results 03/08/25 Range/Units 20:30 WBC 6.5 (4.8-10.8) X10*3/uL RBC 3.80 L (4.20-5.50) X10*6/uL Hgb 12.6 (12.0-16.0) g/dl Hct 36.6 L (37.0-47.0) % MCV 96.3 (80.0-98.0) fL MCH 33.2 H (27.0-33.0) pg MCHC 34.4 (31.0-35.0) g/dl RDW 12.9 (11.0-16.0) % Plt Count 180 (160-400) X10*3/uL MPV 10.8 (9.4-12.3) fL Immature Gran % (Auto) 0.2 (0.0-0.4) % Neut % (Auto) 44.1 L (45-73) % Lymph % (Auto) 36.4 (20-40) % Reeves % (Auto) 10.4 (2-11) % Eos % (Auto) 7.3 H (0-4) % Baso % (Auto) 1.6 (0-2) % Lymph # (Auto) 2.4 (1.2-4.9) X10*3/uL Reeves # (Auto) 0.7 (0.1-1.2) X10*3/uL Eos # (Auto) 0.5 H (0.0-0.4) X10*3/uL Baso # (Auto) 0.1 (0.0-0.2) X10*3/uL Abs Immat Gran (auto) 0.01 (0.00-0.03) X10*3/uL Absolute Neuts (auto) 2.9 (2.0-8.3) x10*3/uL Absolute Nucleated RBC 0.000 (0.0-0.012) X10*3/uL Nucleated RBC % (auto) 0.0 (0.0-0.2) /100WBC Sodium 138 (135-145) mmol/L Potassium 3.9 (3.3-5.1) mmol/L Chloride 109 H (96-108) mmol/L Carbon Dioxide 23 (22-29) mmol/L Anion Gap 10 L (12-20) BUN 9 (9-16) mg/dL Creatinine 0.78 (0.5-1.4) mg/dL Estim Creat Clear Calc 58.1 Estimated GFR > 60 Random Glucose 147 H (60-115) mg/dL Calcium 9.0 (8.4-10.2) mg/dL Magnesium 1.7 (1.6-2.6) mg/dL Total Bilirubin 0.6 (0.0-1.0) mg/dL AST 35 H (5-31) U/L ALT 29 (0-31) U/L Alkaline Phosphatase 77 (39-117) U/L Troponin I High Sens 3.5 (<3.5-17.0) ng/L B-Natriuretic Peptide 40 (<100) pg/mL Total Protein 6.5 (6.5-8.0) g/dL Albumin 3.7 (3.5-5.0) g/dL Lipase 23 (8-78) U/L TSH 0.58 (0.32-4.0) uIU/mL Urine Color Yellow Urine Appearance Clear Urine pH 5.5 (5.0-9.0) Ur Specific [place] 1.010 (1.005-1.025) Urine Protein Negative (Neg-Trace) mg/dL Urine Glucose (UA) Negative (Negative) mg/dL Urine Ketones Negative (Negative) mg/dL Urine Blood Negative (Negative) Urine Nitrite Negative (Negative) Ur Leukocyte Esterase Moderate (2+) H (Negative) Urine RBC 0-2 (0-2) /HPF Urine WBC 11-20 H (0-5) /HPF Ur Squamous Epith Cells 0-2 (0-2) /HPF Urine Bacteria 1+ (None Seen) Hyaline Casts 0-2 (0-2) /LPF Influenza Type A (PCR) NEGATIVE (Negative) Influenza Type B (PCR) NEGATIVE (Negative) RSV RNA Qual (PCR) NEGATIVE (Negative) SARS-CoV-2 RNA (RT-PCR) NEGATIVE (Negative) Independent Interpretation I performed an independent interpretation of an: EKG Interpretation: EKG at 20:20 shows normal sinus rhythm at 68 beats per minute. It is a normal EKG. Discharge Plan Discharge Clinical Impression: Dizziness, Fatigue Patient Disposition: Home, Self-Care Additional Instructions: Your testing in the emergency room today all seems quite reassuring. Please make a follow up appointment with your regular doctor to discuss these symptoms further. In the meantime continue all of your regular medications. If you feel significantly worse please return to the emergency room for re-evaluation. Prescriptions: No Action metoprolol tartrate 100 mg tablet 100 mg PO BID Qty: 180 4RF (DME) Adult pull ups- large See Rx Instructions .Route .MEDSUPPLY Qty: 300 12RF Rx Instructions: As directed (DME) wipes See Rx Instructions .Route .MEDSUPPLY Qty: 2 12RF Rx Instructions: As directed rosuvastatin 20 mg tablet 20 mg PO DAILY Qty: 30 2RF ferrous sulfate 325 mg (65 mg iron) tablet,delayed release (DR/EC) 325 mg PO BID Qty: 56 2RF aspirin 81 mg tablet,delayed release (DR/EC) 81 mg PO DAILY 90 Days Qty: 90 1RF furosemide 20 mg tablet 20 mg PO DAILY Qty: 90 3RF cyanocobalamin (vitamin B-12) 1,000 mcg tablet 1,000 mcg PO DAILY Qty: 90 0RF (DME) grab bar for shower See Rx Instructions .Route .MEDSUPPLY Qty: 1 0RF Rx Instructions: As directed losartan 100 mg tablet 100 mg PO DAILY Qty: 30 1RF cholecalciferol (vitamin D3) 50 mcg (2,000 unit) capsule 50 mcg PO DAILY Qty: 90 0RF gabapentin 100 mg capsule 100 mg PO BEDTIME Qty: 90 1RF triamcinolone acetonide 0.5 % cream 1 appl topical BID Qty: 30 0RF (DME) Altera Nebulizer System Misc See Rx Instructions .ROUTE .MEDSUPPLY Qty: 1 0RF Rx Instructions: As directed updraft Q 4 hours prn with albuterol Airsupra 90-80 mcg/actuation HFA aerosol inhaler 2 inh inhalation BID PRN (Reason: shortness of breath) 30 Days Qty: 10.7 0RF Rhopressa 0.02 % drops ophthalmic (eye) tizanidine 4 mg tablet PO BEDTIME pantoprazole 40 mg tablet,delayed release (DR/EC) 40 mg PO DAILY Qty: 90 2RF Mounjaro 12.5 mg/0.5 mL pen injector 12.5 mg subcut QWEEK Qty: 2 3RF metformin 500 mg tablet extended release 24 hr 1,000 mg PO QAM insulin degludec [Tresiba FlexTouch U-200] 200 unit/mL (3 mL) insulin pen 14 unit subcut BEDTIME Qty: 9 5RF Rx Instructions: Replaces lantus (insulin glargine) latanoprost 0.005 % drops ophthalmic (eye) brimonidine 0.2 % drops ophthalmic (eye) Zyrtec 10 mg capsule 10 mg PO DAILY Qty: 30 0RF Referrals: Po,Junior Galarza MD [Primary Care Provider, Internal Medicine] Interventions: ED Discharge Assessment Last Done: 03/09/25 00:46 Discharge Date/Time: 03/09/25 00:48 Print Language: South African
[2025-03-08 20:36] LABS: MANUAL DIFF FLAG NO
[2025-03-08 20:37] LABS: Basophils Absolute Auto 0.1 X10*3/uL (0.0-0.2); Basophils Percent Auto 1.6 % (0-2); Eosinophils Absolute Auto 0.5 X10*3/uL (0.0-0.4); Eosinophils Percent Auto 7.3 % (0-4); Hematocrit 36.6 % (37.0-47.0); Hemoglobin 12.6 g/dl (12.0-16.0); Imm Gran Abs Auto 0.01 X10*3/uL (0.00-0.03); Imm Gran Pct Auto 0.2 % (0.0-0.4); Lymphocytes Absolute Auto 2.4 X10*3/uL (1.2-4.9); Lymphocytes Percent Auto 36.4 % (20-40); Mean Corpuscular HGB Conc 34.4 g/dl (31.0-35.0); Mean Corpuscular Hemoglobin 33.2 pg (27.0-33.0); Mean Corpuscular Volume 96.3 fL (80.0-98.0); Mean Platelet Volume 10.8 fL (9.4-12.3); Monocytes Absolute Auto 0.7 X10*3/uL (0.1-1.2); Monocytes Percent Auto 10.4 % (2-11); Neutrophils Absolute Auto 2.9 x10*3/uL (2.0-8.3); Neutrophils Percent Auto 44.1 % (45-73); Platelet Count 180 X10*3/uL (160-400); Red Cell Distribution Width 12.9 % (11.0-16.0); White Blood Count 6.5 X10*3/uL (4.8-10.8)
[2025-03-08 20:38] LABS: Appearance Urine Clear; Color Urine Yellow; Glucose Urine UA Negative (Negative); Leukocyte Esterase Urine Moderate (2+) (Negative); Nitrite Urine Negative (Negative); PH 5.5 (5.0-9.0); UMIC TRIGGER UACC YES; Urine Blood Negative (Negative); Urine Ketones Negative (Negative); Urine Protein Negative (Neg-Trace)
[2025-03-08 20:43] LABS: Bacteria Urine 1+ (None Seen); Hyaline Casts Urine 0-2 /LPF (0-2); RBC Urine 0-2 /HPF (0-2); Squamous Epithelial Cell Urine 0-2 /HPF (0-2); UACC Culture Trigger YES
[2025-03-08 20:57] LABS: Alanine Aminotransferase 29 U/L (0-31); Albumin Level 3.7 g/dL (3.5-5.0); Alkaline Phosphatase 77 U/L (39-117); Anion Gap 10 (12-20); Aspartate Amino Transferase 35 U/L (5-31); Bilirubin Total 0.6 mg/dL (0.0-1.0); Blood Urea Nitrogen 9 mg/dL (9-16); Carbon Dioxide 23 mmol/L (22-29); Chloride 109 mmol/L (96-108); Creatinine Clr Calc Pharmacy 58.1; Estimated Glomerular Filt Rate > 60; Glucose Random 147 mg/dL (60-115); Lipase 23 U/L (8-78); Magnesium 1.7 mg/dL (1.6-2.6); Potassium 3.9 mmol/L (3.3-5.1); Sodium 138 mmol/L (135-145); Total Protein 6.5 g/dL (6.5-8.0)
[2025-03-08 21:05] LABS: B Type Natriuretic Peptide 40 pg/mL (<100)
[2025-03-08 21:13] LABS: Influenza A PCR NEGATIVE (Negative); Influenza B PCR NEGATIVE (Negative); Resp Syncy Virus RNA Qual PCR NEGATIVE (Negative); SARS COV2 PCR INHOUSE NEGATIVE (Negative)
[2025-03-08 21:48] LABS: Troponin-I High Sensitivity 3.5 ng/L (<3.5-17.0)
[2025-03-08 22:32] LABS: Thyroid Stimulating Hormone 0.58 uIU/mL (0.32-4.0)
[2025-03-09 00:46] VITALS: BP 177/75; PULSE 72; RESP 20; TEMP -17.7; TEMP 0; O2SAT 94
== END 2025-03-09 00:48 | disposition home or self-care (01) ==
PROVIDERS: Physician Assistant Medical; Emergency Provider Emergency Medicine; PCP Internal Medicine
DX: R42 Dizziness and giddiness (principal); R53.1 Weakness; R53.83 Other fatigue; E11.9 Type 2 diabetes mellitus without complications; Z03.818 Encounter for observation for suspected exposure to other biological agents ruled out
CPT/HCPCS: 0241U; 36415; 70450; 80053; 81001; 83690; 83735; 83880; 84443; 84484; 85025; 87086; 93005; 99283; 99284

== ENCOUNTER → 2025-03-08 20:09 | Outpatient (BNV) | payer OTHER, SELFPAY | PROVIDERS: Emergency Provider Emergency Medicine; PCP Internal Medicine; Visit Provider Internal Medicine Cardiovascular Disease | DX: R53.1 Weakness (principal) | CPT/HCPCS: 93010 ==

== ENCOUNTER → 2025-03-08 21:56 | Outpatient (BNV) | payer OTHER, SELFPAY | PROVIDERS: Emergency Provider Emergency Medicine; PCP Internal Medicine; Visit Provider Radiology Diagnostic Radiology | DX: R26.81 Unsteadiness on feet (principal) | CPT/HCPCS: 70450 ==

== ENCOUNTER 2025-03-19 09:54 | Outpatient (AMB) | payer OTHER, SELFPAY ==
--- OUTSIDE RECORDS SUMMARY | 2014-01-05 06:31 | XMS_ITS | Continuity of Care Document ---
Author Organization [facility] Address [address] [address] Phone Care Team Providers Care Book Editor Name Role Phone [place] Amy KNIGHT Unavailable Unavailable Advance Directives Directive Yes / No Effective Date File Name No Information Encounters Encounter Description Practice Location Reason(s) For Visit Diagnoses Date Provider [facility], [address] [address], [place], [place], [id number], tel:[phone] No Information 2013 [place] Amy. [address] [place], [address]. tel:[phone] Family History Family Member Type Diagnosis Age At Onset No Information Payers Payer name Insurance type Covered alliance party ID Authoriza tion(s) No Information Social History Type Description Quantity Date Captured Comments Sex Female Smoking Status No Information Chief Complaint And Reason For Visit No Information History Of Present Illness Encounter Date Complaint History Of Prese nt Illness No Information Instructions Date Instruction Additional Infor mation No Information Assessments Type Assessment Date No Information
[2025-03-19 10:19] VITALS: BP 100/56; PULSE 88; O2SAT 95; BMI 29.8
--- NOTE | 2025-03-19 10:19 | A.OFFVIS_ITS ---
Vital Signs 03/19/25 10:19 Height 5 ft 2 in Weight 163 lb 2.273 oz BMI 29.8 BP 100/56 L Blood Pressure Location Rt brachial Position Sitting Pulse 88 Pulse Source Pulse Oximeter Pulse Oximetry (%) 95 Oxygen Delivery Method Room Air Intake Visit Reasons: asthma Allergies aspirin (Aspirin) Allergy (Mild, Verified 03/19/25 10:22) Abdominal Pain Penicillins Allergy (Mild, Verified 03/19/25 10:22) NAUSEA/STOMACH PAIN hydrochlorothiazide Allergy (Unknown, Verified 03/19/25 10:22) hypokalemia lisinopril Allergy (Unknown, Verified 03/19/25 10:22) ? swelling Ffteluo-YZC-OeQ Reductase Inhibitor Allergy (Unknown, Verified 03/19/25 10:22) Muscle cramps amlodipine Adverse Reaction (Intermediate, Verified 03/19/25 10:22) leg swelling ibuprofen (From Motrin) Adverse Reaction (Unknown, Verified 03/19/25 10:22) Abdominal Pain HPI Comments Details: The patient is a 74 y/o woman with a history of asthma. She has been on Wixela and seems to be helpful. Back in the Fall she did go to the ED with a flare up. She is have a CXR that we reviewed with no acute disease. She was treated with prednisone at that time. She did have PFTs back in 2019, which demonstrated limited inspiratory flows at that time. The patient did have a CT scan of the chest that also reviewed back in 2016 that demonstrated a small hiatal hernia and also subcentimeter pulmonary nodules. The patient has not had any further imaging studies to review the pulmonary nodules at this time. 02/06/2024 the patient is here for a pulmonary follow-up visit. Overall the patient has been doing well. She has been using Wixela twice a day. She is finds it helpful. She is having some muscle spasms at nighttime. Is affecting her sleep. We did talk about this point decreasing the Wixela down to just in the morning to try to minimize on the potassium chest. The patient also can try some magnesium [id number] to see if this provides some relief. We did review her CT scan of the chest. Pulmonary nodules are stable. She has a small hiatal hernia that still stable as well. No further CAT scans are warranted. 01/05/2025 the patient is here for a pulmonary follow-up visit. The patient overall has been doing well. She still continues to have issues with muscle spasms and neuropathies. She has responded well to Neurontin. We did talk about her potassium levels. Seems like the last time she had blood work to reassuring. The patient has been under Wixela she does not use it as prescribed. Mainly as needed. Therefore will go ahead and switch over to AirDuo brought that will be more effective medication for her. No imaging studies warranted. Will follow-up in a year's time. If she develops any worsening symptoms she can always call for an earlier assessment. 03/19/2025 the patient is here for pulmonary follow-up visit. The patient has had some worsening asthma symptoms now in the springtime. The air supra was not helpful for her. She felt like the Wixela did help her better. Initially we had taken her off the Wixela because of the issues of the long-acting beta agonist potentially causing muscle spasms. But then she went back on it seems to be doing okay on it. She had also had blood work done because she had issues with feeling dizzy lightheaded and she was brought to the [facility] ED. The blood work did demonstrate significant eosinophilia. 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 Therefore she will go back on Wixela will start her on Singulair. If that is able to keep her at [place] that she should continue those inhaler therapies. If she has any difficulties with the breathing and asthma symptoms on a regular basis she can come in and get blood work to readdress the question of her asthma phenotype and allergies and therefore that point if needed we can talk about biologic therapy. The patient follow-up in 4 months otherwise. If she has any issues prior to the next visit she can call for further recommendations. [facility] Medical History Diabetic neuropathy GERD (gastroesophageal reflux disease) Type 2 diabetes mellitus with hypoglycemia Pulmonary nodules Hiatal hernia Orthopnea Headache Fall NSTEMI (non-ST elevated myocardial infarction) Lower extremity edema HLD (hyperlipidemia) Colon cancer screening Urinary frequency Pleural effusion, right Nocturia more than twice per night Glaucoma Cataract of left eye Renal cyst Right shoulder pain Preop exam for internal medicine On beta kamryn at home Constipation Abdominal bloating Shoulder pain, right Hip pain, left Vitamin D deficiency Osteoporosis Restless leg syndrome Type 2 diabetes mellitus with diabetic polyneuropathy Nasal congestion Chest pain Tubal ligation evaluation Gastroparesis Adrenal adenoma Pulmonary nodule Fracture of toe of left foot Positive MAGGIE (antinuclear antibody) Osteoarthritis of both knees Osteopenia Ulnar neuropathy Asthma Obesity (BMI 30-39.9) Coronary artery disease Hypercholesterolemia Surgical History History of coronary artery stent placement Hx of right cataract extraction History of esophagogastroduodenoscopy (EGD) Hx of colonoscopy History of breast biopsy History of tubal ligation History of laparoscopic cholecystectomy Family History Mother HTN (hypertension) Diabetes Brother Lung cancer Sister Cancer, colon Daughter Uterine cancer Father Prostate cancer Social History Household Members: Spouse Household Members Other:: Granddaughter is PRESS TENDER [employer] GOODS lives upstairs Housing: Other Housing Other:: m2 family house Are you a primary healthcare financial analyst to a significant other at home: No Do you presently have visiting nurse or other home services: No Alcohol intake: never Patient Tobacco Use Status: Former Tobacco user Tobacco use type: Cigarette e-Cigarette/Vaping Use: Never Used Second Hand Smoke Exposure: Yes service: No Current occupational status: retired and disabled Cognitive needs: No Hearing needs: No Vision needs: Yes (glasses) Review of Systems Const Denies chills, Denies fatigue, Denies fever(s) and Denies weight gain ENT Denies dizziness Card Denies chest pain and Reports dyspnea on exertion Resp Reports cough, Reports dyspnea on exertion and Reports wheezing GI Denies hematochezia and Denies change in stool character Musc Denies abnormal gait, Denies muscle weakness, Denies numbness, Denies radiating pain into limb and Denies tingling Neuro Denies abnormal gait, Denies dizziness, Denies numbness and Denies tingling Endo Denies fatigue Aller/Immun Reports wheezing Physical Exam Vital Signs: Last Vital Signs Pulse 88 03/19/25 10:19 BP 100/56 L 03/19/25 10:19 Pulse Ox 95 03/19/25 10:19 Oxygen Delivery Method Room Air 03/19/25 10:19 BMI result Body Mass Index 29.8 Const General: healthy appearing, no acute distress and well developed Nutritional Appearance: well nourished Orientation/consciousness: patient oriented x3 Chest Chest palpation & inspection: normal inspection of the chest Resp Effort & Inspection: normal respiratory effort and no tracheal deviation Auscultation: diminished lung sounds Cardio Rate: regular rate Heart sounds: S1 normal heart sound present and S2 normal heart sound present GI Palpation (GI): Soft to palpation and nontender Skin General skin exam: turgor normal Neuro General: patient oriented x3 Extrem General: Yes no clubbing, cyanosis or edema Psych Appearance: grossly normal Mental Status: mental status grossly normal Assessment & Plan Assessment & Plan (1) Asthma: Code(s): J45.909 - Unspecified asthma, uncomplicated Category: Medical Qualifiers: Asthma complication type: uncomplicated Asthma persistence: persistent Asthma severity: moderate Qualified Code(s): J45.40 - Moderate persistent asthma, uncomplicated (2) Hiatal hernia: Code(s): K44.9 - Diaphragmatic hernia without obstruction or gangrene Category: Medical (3) Pulmonary nodules: Code(s): R91.8 - Other nonspecific abnormal finding of lung field Category: Medical Plan restart Wixela stop Airsupra BID start Singlair PM consider biologics Bloodwork if no better reflux diet sleep with HOB elevated Low Sodium diet CT chest with stable nodules, no further f/u is warranted F/U 4-6 months Orders: Orders Complete Blood Count Auto Diff Today J45.40 - Moderate persistent asthma, uncomplicated Erythrocyte Sedimentation Rate Today J45.40 - Moderate persistent asthma, uncomplicated Resp Allergy Profile Region I Today J45.40 - Moderate persistent asthma, uncomplicated, T78.40XA - Allergy, unspecified, initial encounter Hypersensitive Pneumonitis [facility] Today R91.8 - Other nonspecific abnormal finding of lung field Medications: New fluticasone propion-salmeterol 250-50 mcg/dose (Wixela Inhub) 1 inh inhalation Q12H 60 ea 11RF 30 days montelukast (Singulair) 10 mg PO BEDTIME 30 tabs 11RF 30 days J45.909 - Unspecified asthma, uncomplicated Coding Level of Care Code Est Pt Level 4 (72611) Complex EM visit Add On G2211 Diagnoses Moderate persistent asthma without complication J45.40 Asthma complication type: uncomplicated Asthma persistence: persistent Asthma severity: moderate Hiatal hernia K44.9 Pulmonary nodules R91.8 Time Spent (min) 17
== END 2025-03-19 10:55 | disposition home or self-care (01) ==
LOC: HO.HPS 09:55
PROVIDERS: PCP Internal Medicine; Visit Provider Hospitalist
DX: J45.40 Moderate persistent asthma, uncomplicated (principal); K44.9 Diaphragmatic hernia without obstruction or gangrene; R91.8 Other nonspecific abnormal finding of lung field
CPT/HCPCS: 99214; G2211

== ENCOUNTER → 2025-03-19 09:54 | Outpatient (BNVA) | payer OTHER, SELFPAY | PROVIDERS: PCP Internal Medicine; Visit Provider Hospitalist | DX: J45.40 Moderate persistent asthma, uncomplicated (principal); R91.8 Other nonspecific abnormal finding of lung field; K44.9 Diaphragmatic hernia without obstruction or gangrene | CPT/HCPCS: 99212 ==

== ENCOUNTER 2025-05-01 09:59 | Outpatient (AMB) | payer OTHER, SELFPAY ==
--- OUTSIDE RECORDS SUMMARY | 2014-01-05 06:31 | XMS_ITS | Continuity of Care Document ---
Author Organization [facility] Address [address] [address] Phone Care Team Providers Care Pharmaceutical Sales Specialist Name Role Phone [place] Amy KNIGHT Unavailable Unavailable Advance Directives Directive Yes / No Effective Date File Name No Information Encounters Encounter Description Practice Location Reason(s) For Visit Diagnoses Date Provider [facility], [address] [address], [place], [place], [id number], tel:[phone] No Information 2013 [place] Amy[address] [place], [address]. tel:[phone] Family History Family Member Type Diagnosis Age [...]
--- NOTE | 2025-05-01 10:01 | MHC.OFFVIS ---
Vital Signs 05/01/25 10:13 Height 5 ft 2 in Weight 164 lb 0.383 oz BMI 30.0 BP 102/64 Blood Pressure Location Rt brachial Position Sitting Pulse 74 Pulse Source Pulse Oximeter Pulse Oximetry (%) 95 Oxygen Delivery Method Room Air Intake Visit Reasons: T2DM Intake Note: Patient present today to follow up on Type 2 Diabetes Mellitus. Patient receives Dexcom G7 supplies through: [employer] Last Diabetic Eye exam: 07/02/2024, next exam is on 10/2024 Last Podiatry Visit: Does not see a Packaging Associate Random Glucose: 173 mg/dl HgA1C: 7.8% 05/01/2025 Green End Department Supervisor Required: Yes Green End Department Supervisor Language: Visitor Services Assistant Services: Green End Department Supervisor Offered & Declined Accompanied by: Daughter Allergies aspirin (Aspirin) Allergy (Mild, Verified 05/01/25 10:07) Abdominal Pain Penicillins Allergy (Mild, Verified 05/01/25 10:07) NAUSEA/STOMACH PAIN hydrochlorothiazide Allergy (Unknown, Verified 05/01/25 10:07) hypokalemia lisinopril Allergy (Unknown, Verified 05/01/25 10:07) ? swelling Hupetay-MJA-XuE Reductase Inhibitor Allergy (Unknown, Verified 05/01/25 10:07) Muscle cramps amlodipine Adverse Reaction (Intermediate, Verified 05/01/25 10:07) leg swelling ibuprofen (From Motrin) Adverse Reaction (Unknown, Verified 05/01/25 10:07) Abdominal Pain Medication List - Last Reconciled 05/01/25 by LEOBARDO Smith [Adult pull ups- large As directed] aspirin 81 mg PO DAILY 90 days blood sugar diagnostic (OneTouch Verio test strips) Use as directed to check blood glucose three times daily. blood-glucose meter (OneTouch Verio Flex Meter) Use as directed to check blood glucose three times daily blood-glucose sensor (FreeStyle Samir 3 Plus Sensor device) Apply 1 new sensor every 15 days as directed to monitor blood glucose continuously. blood-glucose,apparel machinery instructor,cont (FreeStyle Samir 3 Wendell) Use daily to monitor blood glucose levels continuously. brimonidine 0.2% drps ophthalmic (eye) cetirizine (Zyrtec) 10 mg PO DAILY cholecalciferol (vitamin D3) 50 mcg PO DAILY cyanocobalamin (vitamin B-12) 1,000 mcg PO DAILY ferrous sulfate 325 mg PO BID fluticasone propion-salmeterol 250-50 mcg/dose (Wixela Inhub) 1 inh inhalation Q12H 30 days furosemide 20 mg PO DAILY gabapentin 100 mg PO BEDTIME [grab bar for shower As directed] insulin degludec (Tresiba FlexTouch U-200 insulin) 14 units (0.07 mL) subcut BEDTIME lancets (OneTouch Delica Plus Lancet) Use as directed to check blood glucose three times daily latanoprost 0.005% drps ophthalmic (eye) losartan 100 mg PO DAILY metformin ER 1,000 mg PO QAM metoprolol tartrate 100 mg PO BID montelukast (Singulair) 10 mg PO BEDTIME 30 days nebulizers ([employer] Nebulizer System) As directed updraft Q 4 hours prn with albuterol netarsudil 0.02% (Rhopressa) drps ophthalmic (eye) pantoprazole 40 mg PO DAILY rosuvastatin 20 mg PO DAILY tirzepatide (Mounjaro) 15 mg (0.5 mL) subcut QWEEK tizanidine mg PO BEDTIME triamcinolone acetonide 0.5% 1 appl topical BID [wipes As directed] HPI Comments Details: This is a 74-year-old female with a past medical history of coronary artery disease, type 2 diabetes, hyperlipidemia, osteopenia, adrenal adenoma, osteoporosis and hypertension presenting for diabetic management. Her daughter, Roya, provides history and interpretation. They declined an petroleum geology faculty member. Reviewed Dexcom 49% very high 32% high 19% in range She has hyperglycemia throughout the day with worse postprandial readings. She started using a fingerstick glucometer because the Dexcom said she was having high blood sugars frequently, and when she checks a fingerstick her blood sugar is 160. Her Dexcom is alerting her to high sugar in 300s and when she checks a fingerstick 100-150 points lower. Reports these problems having been going on for the past year with the Dexcom despite changing sensors. The history she provides his supported by her hemoglobin A1c today which is only 7.8% despite GMI of 9.3% on Dexcom. Current medications: Metformin ER to 1000 mg qam (diarrhea resolved since decreasing the dose) Tresiba 14 units nightly Continue Mounjaro 12.5 mg weekly. Past medication: Lantus switch to Tresiba due to hypoglycemia Compliance issues: She is taking her medications. Hypoglycemia symptoms: None Hyperglycemia symptoms: none Eye exam: 07/02/24 Microvascular complications: neuropathy treated with gabapentin Macrovascular complications: CAD Hypertension: Patient is on an Arb. Hyperlipidemia: treated with Rosuvastatin 20 mg. ROS: Constitutional: No unexplained weight loss, fever, chills, fatigue. Eyes: No vision change Gastrointestinal: No anorexia, nausea, vomiting or diarrhea. No abdominal pain Skin: No open wounds or rashes. Physical exam: Constitutional: Alert, in no distress. Neck: Supple, Full range of motion. No lymphadenopathy. No palpable thyroid masses. Respiratory: Clear to auscultation. Cardiovascular: S1 S2 regular. No murmurs. [facility] Medical History (Updated 05/01/25 @ 10:56 by LEOBARDO Smith) Type 2 diabetes mellitus with cardiac complication Allergy Diabetic neuropathy GERD (gastroesophageal reflux disease) Type 2 diabetes mellitus with hypoglycemia Pulmonary nodules Hiatal hernia Orthopnea Headache Fall NSTEMI (non-ST elevated myocardial infarction) Lower extremity edema HLD (hyperlipidemia) Colon cancer screening Urinary frequency Pleural effusion, right Nocturia more than twice per night Glaucoma Cataract of left eye Renal cyst Right shoulder pain Preop exam for internal medicine On beta kamryn at home Constipation Abdominal bloating Shoulder pain, right Hip pain, left Vitamin D deficiency Osteoporosis Restless leg syndrome Type 2 diabetes mellitus with diabetic polyneuropathy Nasal congestion Chest pain Tubal ligation evaluation Gastroparesis Adrenal adenoma Pulmonary nodule Fracture of toe of left foot Positive MAGGIE (antinuclear antibody) Osteoarthritis of both knees Osteopenia Ulnar neuropathy Asthma Obesity (BMI 30-39.9) Coronary artery disease Hypercholesterolemia Surgical History History of coronary artery stent placement Hx of right cataract extraction History of esophagogastroduodenoscopy (EGD) Hx of colonoscopy History of breast biopsy History of tubal ligation History of laparoscopic cholecystectomy Family History Mother HTN (hypertension) Diabetes Brother Lung cancer Sister Cancer, colon Daughter Uterine cancer Father Prostate cancer Social History Household Members: Spouse Household Members Other:: Granddaughter is SYSTEM SALES CONSULTANT lives upstairs Housing: Other Housing Other:: m2 family house Are you a primary children's zoo caretaker to a significant other at home: No Do you presently have visiting nurse or other home services: No Alcohol intake: never Patient Tobacco Use Status: Former Tobacco user Tobacco use type: Cigarette e-Cigarette/Vaping Use: Never Used Second Hand Smoke Exposure: Yes service: No Current occupational status: retired and disabled Cognitive needs: No Hearing needs: No Vision needs: Yes (glasses) Physical Exam Vital Signs: Last Vital Signs Pulse 74 05/01/25 10:13 BP 102/64 05/01/25 10:13 Pulse Ox 95 05/01/25 10:13 Oxygen Delivery Method Room Air 05/01/25 10:13 BMI result Body Mass Index 30.0 Office Procedures Glucose Monitoring Details Details: See HPI 91970 - Glucose monitoring, continuous-physician I&R Procedure code (CPT) selection complete Results AMB Hemoglobin A1c AMB Hemoglobin A1c 7.8 % Last Edit by NGUYEN Powell on 05/01/25 10:26 Results Reviewed Results Reviewed: Laboratory Last Values Glucose (Clinic) 173 mg/dL (60-115) H 05/01/25 10:17 Hgb A1c (Clinic) 7.8 % (4.0-6.0) H 05/01/25 10:19 Laboratory Tests 02/20/25 02/20/25 03/08/25 07:30 08:00 20:30 Plt Count Creatinine 0.78 Estimated GFR > 60 Hgb A1c (Clinic) AST 35 H ALT 29 B-Natriuretic Peptide 40 Triglycerides 65 Cholesterol 129 LDL Cholesterol, Calc 63 HDL Cholesterol 53 Vitamin B12 950 H TSH 0.58 Urine Microalbumin 33.0 Microalb/Creat Ratio 17.0 04/28/25 05/01/25 10:54 10:19 Plt Count 235 D Creatinine Estimated GFR Hgb A1c (Clinic) 7.8 H AST ALT B-Natriuretic Peptide Triglycerides Cholesterol LDL Cholesterol, Calc HDL Cholesterol Vitamin B12 TSH Urine Microalbumin Microalb/Creat Ratio Assessment & Plan Assessment & Plan (1) Type 2 diabetes mellitus with cardiac complication: Code(s): E11.59 - Type 2 diabetes mellitus with other circulatory complications Category: Medical (2) Diabetic neuropathy: Code(s): E11.40 - Type 2 diabetes mellitus with diabetic neuropathy, unspecified Category: Medical Qualifiers: Diabetes mellitus complication detail: diabetic mononeuropathy Diabetes mellitus type: type 2 Qualified Code(s): E11.41 - Type 2 diabetes mellitus with diabetic mononeuropathy Plan In summary this is a 74-year-old female with suboptimally controlled type 2 diabetes. Discussed pathophysiology of Type II Diabetes Mellitus with the patient in detail.? I explained the roasterman risks and complications associated with uncontrolled diabetes including nephropathy, neuropathy, peripheral vascular disease, retinopathy, increased risk of heart disease and stroke.? Lifestyle modification, diabetic diet reviewed with the patient and her daughter.. The Dexcom is not providing accurate blood sugar readings. We do expect some difference between a fingerstick and CGM , but her readings are 100-150 points off frequently. This is proven by office A1c today versus GMI on CGM. It is medically necessary to change the patient to the Samir 3 pulus. Continue metformin extended release 1000 mg daily. Continue Tresiba 14 units daily. Increase Mounjaro to 15 mg weekly. Reviewed treatment of hypoglycemia. Patient says she has glucose tablets at home. Written instructions provided. Continue gabapentin 100 mg at bedtime for neuropathy. Follow up in 6 weeks. Orders: Orders AMB Hemoglobin A1c Today E11.65 - Type 2 diabetes mellitus with hyperglycemia AMB Glucose Monitoring Today E11.9 - Type 2 diabetes mellitus without complications Medications: New blood-glucose,apparel machinery instructor,cont (FreeStyle Samir 3 Wendell) Use daily to monitor blood glucose levels continuously. 1 ea 0RF lancets (OneTouch Delica Plus Lancet) Use as directed to check blood glucose three times daily 100 ea 5RF blood-glucose meter (OneTouch Verio Flex Meter) Use as directed to check blood glucose three times daily 1 ea 0RF blood sugar diagnostic (OneTouch Verio test strips) Use as directed to check blood glucose three times daily. 100 ea 5RF tirzepatide (Mounjaro) 15 mg (0.5 mL) subcut QWEEK 2 mL 3RF blood-glucose sensor (FreeStyle Samir 3 Plus Sensor device) Apply 1 new sensor every 15 days as directed to monitor blood glucose continuously. 2 ea 11RF Discontinued tirzepatide (Mounjaro) Discontinued Reason: Doctor's Order 12.5 mg (0.5 mL) subcut QWEEK 2 mL 2RF Patient Instructions: Metformin ER 1000 mg daily Tresiba 14 units nightly Increase Mounjaro to 15 mg weekly Coding Level of Care Code Est Pt Level 4 (43504) Diagnoses Type 2 diabetes mellitus with cardiac complication E11.59 Diabetic mononeuropathy associated with type 2 diabetes mellitus E11.41 Diabetes mellitus complication detail: diabetic mononeuropathy Diabetes mellitus type: type 2 CPT Codes Details - CPT: 12538 - Glucose monitoring, continuous-physician I&R ([id number])
--- OUTSIDE RECORDS SUMMARY | 2025-05-01 10:02 | XMS_ITS | Clinical Summary ---
Author Organization [employer] [facility] ity Address [address] [place] [address] Care Team Providers Care Dental Chairside Assistant Name Role Phone Junior Zayas MD Primary Care Provider [phone] Social History Tobacco Use Types Packs/Day Years [...] 2) 1998 Cholesterol Screening (Lipid Panel) 08/13/2022 Falls Risk Assessment 08/13/2022 Hepatitis C Screening 08/13/2022 Osteoporosis Screening (Bone Density Screening) 08/13/2022 Social Influencers of Health Screening 08/13/2022 RSV Immunization Adult Patie nts (1 - 1-dose 75+ series) 2023 Diabetes: Annual Urine Albumin-Creatinine Ratio (uACR) 10/26/2023 Diabetes: Blood Sugar Contro l Test (HGBA1C) 10/26/2023 Hypertension/CHF/CAD Annual BMP Blood Test 10/26/2023 COVID-19 Vaccine (2023-2 5 season) 2024 Depression Screening 09/10/2024 Influenza Vaccine (#1) 2025 HIB Vaccines Aged Out No longer [...] age to complete this topic Care Teams Dental Chairside Assistant Relationship Specialty Start Date End Date Junior Zayas MD [address] [place] [address] [address] [facility] [place] [address] PCP - General 05/18/16
[2025-05-01 10:13] VITALS: BP 102/64; PULSE 74; O2SAT 95
[2025-05-01 10:22] LABS: Glucose, Whole Blood 173 mg/dL (60-115)
== END 2025-05-01 10:49 | disposition home or self-care (01) ==
LOC: HO.ENCR 10:00
PROVIDERS: PCP Internal Medicine; Visit Provider Physician Assistant Medical
DX: E11.59 Type 2 diabetes mellitus with other circulatory complications (principal); E11.41 Type 2 diabetes mellitus with diabetic mononeuropathy; E11.65 Type 2 diabetes mellitus with hyperglycemia

== ENCOUNTER → 2025-05-01 09:59 | Outpatient (BNVA) | payer OTHER, SELFPAY | PROVIDERS: PCP Internal Medicine; Visit Provider Physician Assistant Medical | DX: E11.41 Type 2 diabetes mellitus with diabetic mononeuropathy (principal) | CPT/HCPCS: 82947; 83036; 99212 ==

== ENCOUNTER 2025-05-13 08:43 | Outpatient (REF) | payer OTHER, SELFPAY ==
--- OUTSIDE RECORDS SUMMARY | 2025-05-13 09:10 | XMS_ITS | Clinical Summary ---
Author Organization [employer] [facility] ity Address [address] [place] [address] Care Team Providers Care Fireman Name Role Phone Junior Zayas MD Primary Care Provider Social History Tobacco Use Types Packs/Day Years [...] 10/26/2023 Hypertension/CHF/CAD Annual BMP Blood Test 10/26/2023 Depression Screening 09/10/2024 COVID-19 Vaccine ( - 2023-2 5 season) 2025 Influenza Vaccine (#1) 2025 HIB Vaccines Aged [...] age to complete this topic Care Teams Fireman Relationship Specialty Start Date End Date Junior Zayas MD [address] [place] [address] [address] [facility] [place] [address] PCP - General 05/18/16
[2025-05-13 10:20] LABS: Hemoglobin A1C 191.9398 umol/L; Total Hemoglobin (HGBA1C) 3325.7596 umol/L
[2025-05-13 10:36] LABS: Appearance Urine Clear; Glucose Urine UA Negative (Negative); PH 8.0 (5.0-9.0); Specific Gravity - Urine 1.010 (1.005-1.025); UMIC TRIGGER UACC YES
[2025-05-13 10:38] LABS: B Type Natriuretic Peptide 162 pg/mL (<100)
[2025-05-13 10:39] LABS: UACC Culture Trigger YES
[2025-05-13 10:57] LABS: Alanine Aminotransferase 19 U/L (0-31); Albumin Level 4.1 g/dL (3.5-5.0); Alkaline Phosphatase 83 U/L (39-117); Anion Gap 14 (12-20); Aspartate Amino Transferase 23 U/L (5-31); Blood Urea Nitrogen 14 mg/dL (9-16); Calcium 8.7 mg/dL (8.4-10.2); Carbon Dioxide 23 mmol/L (22-29); Chloride 109 mmol/L (96-108); Estimated Glomerular Filt Rate > 60; Potassium 3.8 mmol/L (3.3-5.1); Sodium 142 mmol/L (135-145); Total Protein 6.8 g/dL (6.5-8.0)
[2025-05-13 11:01] LABS: Free T4 (Free Thyroxine) 1.05 ng/dL (0.71-1.85); Thyroid Stimulating Hormone 2.99 uIU/mL (0.32-4.0)
== END 2025-05-13 08:44 | disposition home or self-care (01) ==
LOC: HO.LAB 08:43
PROVIDERS: Absent Provider Internal Medicine; PCP Internal Medicine; Visit Provider Hospitalist
DX: E11.59 Type 2 diabetes mellitus with other circulatory complications (principal); R30.0 Dysuria
CPT/HCPCS: 36415; 80053; 81001; 83036; 83880; 84439; 84443; 87086; 87088; 87186

== ENCOUNTER 2025-05-19 09:28 | Outpatient (AMB) | payer OTHER, SELFPAY ==
--- OUTSIDE RECORDS SUMMARY | 2014-01-05 06:31 | XMS_ITS | Continuity of Care Document ---
Author Organization [facility] Address [address] [address] Phone Care Team Providers Care Mobile Equipment Mechanic Name Role Phone [place] Amy KNIGHT Unavailable Unavailable Advance Directives Directive Yes / No Effective Date File Name No Information Encounters Encounter Description Practice Location Reason(s) For Visit Diagnoses Date Provider [facility], [address] [address], [place], [place], [id number], tel:[phone] No Information 2013 [place] Amy[address] [place], [address]. tel:[phone] Family History Family Member Type Diagnosis Age [...]
[2025-05-19 09:33] VITALS: BP 142/82; PULSE 82; O2SAT 98; BMI 30.2
--- NOTE | 2025-05-19 09:33 | MHC.PC.OV ---
Vital Signs 05/19/25 09:33 Height 5 ft 2 in Weight 165 lb BMI 30.2 BP 142/82 H Blood Pressure Location Lt brachial Position Sitting Pulse 82 Pulse Source Pulse Oximeter Pulse Oximetry (%) 98 Oxygen Delivery Method Room Air Intake Visit Reasons: f/u DM and CAD w/ Po Allergies aspirin (Aspirin) Allergy (Mild, Verified 05/19/25 09:33) Abdominal Pain Penicillins Allergy (Mild, Verified 05/19/25 09:33) NAUSEA/STOMACH PAIN hydrochlorothiazide Allergy (Unknown, Verified 05/19/25 09:33) hypokalemia lisinopril Allergy (Unknown, Verified 05/19/25 09:33) ? swelling Muazdaf-UDB-VpT Reductase Inhibitor Allergy (Unknown, Verified 05/19/25 09:33) Muscle cramps amlodipine Adverse Reaction (Intermediate, Verified 05/19/25 09:33) leg swelling ibuprofen (From Motrin) Adverse Reaction (Unknown, Verified 05/19/25 09:33) Abdominal Pain Medication List - Last Reconciled 05/19/25 by Junior Zayas MD [Adult pull ups- large As directed] aspirin 81 mg PO DAILY 90 days blood sugar diagnostic ([employer] Verio test strips) Use as directed to check blood glucose three times daily. blood-glucose meter ([employer] Verio Flex Meter) Use as directed to check blood glucose three times daily blood-glucose sensor (FreeStyle Samir 3 Plus Sensor device) Apply 1 new sensor every 15 days as directed to monitor blood glucose continuously. 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 brimonidine 0.2% drps ophthalmic (eye) cetirizine (Zyrtec) 10 mg PO DAILY cholecalciferol (vitamin D3) 50 mcg PO DAILY cyanocobalamin (vitamin B-12) 1,000 mcg PO DAILY ferrous sulfate 325 mg PO BID fluticasone propion-salmeterol 250-50 mcg/dose (Wixela Inhub) 1 inh inhalation Q12H 30 days furosemide 20 mg PO DAILY gabapentin 100 mg PO BEDTIME [grab bar for shower As directed] insulin degludec (Tresiba FlexTouch U-200 insulin) 14 units (0.07 mL) subcut BEDTIME lancets ([employer] Delica Plus Lancet) Use as directed to check blood glucose three times daily latanoprost 0.005% drps ophthalmic (eye) losartan 100 mg PO DAILY metformin ER 1,000 mg PO QAM metoprolol tartrate 100 mg PO BID montelukast (Singulair) 10 mg PO BEDTIME 30 days nebulizers (Altera Nebulizer System) As directed updraft Q 4 hours prn with albuterol netarsudil 0.02% (Rhopressa) drps ophthalmic (eye) pantoprazole 40 mg PO DAILY rosuvastatin 20 mg PO DAILY tirzepatide (Mounjaro) 15 mg (0.5 mL) subcut QWEEK tizanidine mg PO BEDTIME triamcinolone acetonide 0.5% 1 appl topical BID [wipes As directed] Tobacco use date assessed: 01/19/25 Fall risk assessment: No Falls in past year Last assessed Fall Risk: 05/19/25 Dental Screening Dental Screen Date: 10/21/24 [facility] Medical History (Updated 05/19/25 @ 10:03 by Junior Zayas MD) Type 2 diabetes mellitus with cardiac complication Allergy Diabetic neuropathy GERD (gastroesophageal reflux disease) Type 2 diabetes mellitus with hypoglycemia Pulmonary nodules Hiatal hernia Orthopnea Headache Fall NSTEMI (non-ST elevated myocardial infarction) Lower extremity edema HLD (hyperlipidemia) Colon cancer screening Urinary frequency Pleural effusion, right Nocturia more than twice per night Glaucoma Cataract of left eye Renal cyst Right shoulder pain Preop exam for internal medicine On beta kamryn at home Constipation Abdominal bloating Shoulder pain, right Hip pain, left Vitamin D deficiency Osteoporosis Restless leg syndrome Type 2 diabetes mellitus with diabetic polyneuropathy Nasal congestion Chest pain Tubal ligation evaluation Gastroparesis Adrenal adenoma Pulmonary nodule Fracture of toe of left foot Positive MAGGIE (antinuclear antibody) Osteoarthritis of both knees Osteopenia Ulnar neuropathy Asthma Obesity (BMI 30-39.9) Coronary artery disease Hypercholesterolemia Surgical History History of coronary artery stent placement Hx of right cataract extraction History of esophagogastroduodenoscopy (EGD) Hx of colonoscopy History of breast biopsy History of tubal ligation History of laparoscopic cholecystectomy Family History Mother HTN (hypertension) Diabetes Brother Lung cancer Sister Cancer, colon Daughter Uterine cancer Father Prostate cancer Social History Household Members: Spouse Household Members Other:: Granddaughter is HEAD TELLER lives upstairs Housing: Other Housing Other:: m2 family house Are you a primary restorative care technician to a significant other at home: No Do you presently have visiting nurse or other home services: No Alcohol intake: never Patient Tobacco Use Status: Former Tobacco user Tobacco use type: Cigarette e-Cigarette/Vaping Use: Never Used Second Hand Smoke Exposure: Yes service: No Current occupational status: retired and disabled Cognitive needs: No Hearing needs: No Vision needs: Yes (glasses) Questionnaire PHQ-9 Over the last 2 weeks, how often have you been bothered by any of the following problems? 1. Little interest or pleasure in doing things: several days 2. Feeling down, depressed, or hopeless: not at all 3. Trouble falling or staying asleep, or sleeping too much: several days 4. Feeling tired or having little energy: several days 5. Poor appetite or overeating: not at all 6. Feeling bad about yourself - or that you are a failure or have let yourself or your family down: not at all 7. Trouble concentrating on things, such as reading the newspaper or watching television: not at all 8. Moving or speaking so slowly that other people could have noticed. Or the opposite - being so fidgety or restless that you have been moving around a lot more than usual: not at all 9. Thoughts that you would be better off or of hurting yourself in some way: not at all Total score: 3 Depression Screening Interpretation: Positive Depression Screening Done: Yes Source: Developed by Drs. Jhon Cedeño, Cara Park, Isaias Michael and colleagues, with an educational joey from [employer]. Thrive Questionnaire Date Thrive assessed: 10/21/24 I am a: Parent/Caregiver What is your living situation today?: I have a steady place to live Within the past 12 months, did the food you bought not last and you didn't have the money to get more?: I choose not to answer this question Within the past 12 months, did you worry whether your food would run out before you got money to buy more?: Never true Do you have trouble paying for medicines?: No Do you have trouble getting transportation to medical appointments?: No Do you have trouble paying your heating and electricity bill?: No Do you have trouble taking care of your child, family member or friend?: No Do you have trouble with day-to-day activities such as bathing, preparing meals, shopping, managing finances, etc.?: I choose not to answer this question Are you currently unemployed and looking for a job?: No Are you interested in more education?: No Please select the resources that you would like help with: None Currently or been in a relationship where the following occur: I choose not to answer THRIVE Score: 0 AUDIT C Alcohol Use Questionnaire (AUDIT-C) 1. How often do you have a drink containing alcohol?: Never 3. How often do you have six or more drinks on one occasion?: Never Total Score: 0 QUYNH-7 AMB Questionnaire QUYNH-7 Date QUYNH - 7 assessed: 10/21/24 Feeling nervous, anxious, or on edge: 0 = Not at all Not being able to stop or control worryin = Not at all Worrying too much about different things: 0 = Not at all Trouble relaxin = Not at all Being so restless that it is hard to sit still: 0 = Not at all Becoming easily annoyed or irritable: 0 = Not at all Feeling afraid as if something awful might happen: 0 = Not at all Total QUYNH-7 score (0-4 normal; 5-9 mild; 10-14 moderate; 15-21 severe): 0 Source: Developed by Drs. Jhon Cedeño, Cara Park, Isaias Michael and colleagues, with an educational joey from [employer]. Physical exam (Primary Care) Vital Signs: Last Vital Signs Pulse 82 05/19/25 09:33 BP 142/82 H 05/19/25 09:33 Pulse Ox 98 05/19/25 09:33 Oxygen Delivery Method Room Air 05/19/25 09:33 BMI result Body Mass Index 30.2 Tobacco/Smoking Status: Tobacco use Status Tobacco use date assessed 01/19/25 05/19/25 09:36 Patient Tobacco Use Status Former Tobacco user 05/19/25 09:36 Tobacco use type Cigarette 05/19/25 09:36 e-Cigarette/Vaping Use Never Used 05/19/25 09:36 PHQ-9: PHQ-9 Score PHQ-9: Total score 3 05/19/25 09:58 Depression Screening Interpretation: Positive Thrive Assessment: Date of Thrive Assessment Date Thrive assessed 10/21/24 05/19/25 09:36 Currently or been in a relationship where the following occur: I choose not to answer Const General: alert; No acute distress Eyes Conjunctivae: conjunctivae normal Resp Auscultation: clear to auscultation bilaterally Cardio Rate: regular rate Rhythm: regular rhythm GI Inspection: Yes normal to inspection Extrem General: Yes normal to inspection and No edema Coding Level of Care Code Est Pt Level 4 (19060) Complex EM visit Add On G2211 Diagnoses Coronary artery disease involving [place] coronary artery of [place] heart without angina pectoris I25.10 Associated angina: without angina Coronary Disease-Associated Artery/Lesion type: [place] artery [place] vs. transplanted heart: [place] heart Type 2 diabetes mellitus with hyperglycemia, unspecified whether continuous churn buttermaker insulin use E11.65 Diabetes mellitus continuous churn buttermaker insulin use: unspecified continuous churn buttermaker insulin use status Hypercholesterolemia E78.00 Age-related osteoporosis without current pathological fracture M81.0 Osteoporosis type: age-related Presence of current pathological fracture: without current pathological fracture Obesity (BMI 30-39.9) E66.9 Hypertension I10 Moderate persistent asthma without complication J45.40 Asthma complication type: uncomplicated Asthma persistence: persistent Asthma severity: moderate Peripheral vascular disease I73.9 Assessment & Plan Assessment & Plan (1) Coronary artery disease: Comment: echo normal LV 60-65% June 2019, May 2023 distal LAD drug-eluting stent Code(s): I25.10 - Atherosclerotic heart disease of [place] coronary artery without angina pectoris Category: Medical Qualifiers: Associated angina: without angina Coronary Disease-Associated Artery/Lesion type: [place] artery [place] vs. transplanted heart: [place] heart Qualified Code(s): I25.10 - Atherosclerotic heart disease of [place] coronary artery without angina pectoris Plan: Control the cholesterol, weight, blood pressure, diabetes on aspirin 81 mg once a day (2) Type 2 diabetes mellitus with hyperglycemia: Comment: Angel Guerra Code(s): E11.65 - Type 2 diabetes mellitus with hyperglycemia Category: Medical Qualifiers: Diabetes mellitus residential insulin use: unspecified residential insulin use status Qualified Code(s): E11.65 - Type 2 diabetes mellitus with hyperglycemia Plan: Decrease the amount of carbohydrate intake, pasta, bread, rice and potatoes are all sugar and that is aside from all the sweet stuff, remember that fruits are good but they are Sweet also. Patient does see endocrinology on Tresiba metformin and Mounjaro (3) Hypercholesterolemia: Comment: Patient cannot tolerate statins Code(s): E78.00 - Pure hypercholesterolemia, unspecified Category: Medical Plan: Avoid fried foods, chicken skin, eggs, butter margarine, pastries and meat. Be it pork or beef they have a lot of cholesterol LDL goal of less than 70 and triglyceride of less than 150 on rosuvastatin (4) Osteoporosis: Code(s): M81.0 - Age-related osteoporosis without current pathological fracture Category: Medical Qualifiers: Osteoporosis type: age-related Presence of current pathological fracture: without current pathological fracture Qualified Code(s): M81.0 - Age-related osteoporosis without current pathological fracture Plan: Discussed about calcium and vitamin-D (5) Obesity (BMI 30-39.9): Code(s): E66.9 - Obesity, unspecified Category: Medical Plan: Diet and exercise (6) Hypertension: Code(s): I10 - Essential (primary) hypertension Category: Medical Plan: Continue with blood pressure medication. Decrease salt intake and exercise patient is on furosemide losartan 100 mg once a day metoprolol 100 mg twice a day (7) Asthma: Code(s): J45.909 - Unspecified asthma, uncomplicated Category: Medical Qualifiers: Asthma complication type: uncomplicated Asthma persistence: persistent Asthma severity: moderate Qualified Code(s): J45.40 - Moderate persistent asthma, uncomplicated Plan: Patient follows up with Pulmonary has been placed on Wixela Singulair (8) Peripheral vascular disease: Code(s): I73.9 - Peripheral vascular disease, unspecified Category: Medical Plan History of Present Illness The patient is a 75-year-old female presenting for a follow-up visit. The patient has a history of obesity, which has been a long-standing issue. She is also diagnosed with asthma and has been advised to restart Wixela and Singulair while discontinuing Airsupra. The patient has coronary artery disease and is on aspirin 81 mg daily as part of her management plan. She also has hypercholesterolemia, with a recent LDL cholesterol level of 63 mg/dL, and is on rosuvastatin with a goal of maintaining LDL below 70 mg/dL. The patient has a history of diabetes mellitus and is currently on metformin, Tresiba, and Mounjaro. Her hemoglobin A1c was recorded at 7.4%, and she has been experiencing issues with her DEXCOM sensor providing inaccurate blood sugar readings. The patient has hypertension and is on furosemide, losartan, and metoprolol for management. She has a diagnosis of overactive bladder and has expressed a preference for using pads over diapers for urinary incontinence during sabianism services. The patient has gastroesophageal reflux disease (GERD) and osteoporosis, with a bone density scan conducted in February 2023 indicating the latter condition. She has chronic anemia and was seen by hematology oncology in April 2025, with a history of receiving one unit of blood in August 2023. Her recent blood work indicated no current anemia, and her renal and liver functions are stable. The patient was evaluated for heart failure, but tests indicated no congestive heart failure, and her heart function was deemed good. Health Maintenance - Colonoscopy up to date as of October 2024 - Mammogram up to date - Bone density scan conducted in February 2023 - Discussed calcium and vitamin D supplementation Social History Review of Systems - Cardiovascular: Denies symptoms of joint bleeding. - Musculoskeletal: Reports pain in the right side when laying down, no issues with urination. Physical Exam Results - Labs: Hemoglobin A1c at 7.4%, blood sugar of 119 mg/dL, LDL cholesterol of 63 mg/dL. - Tests: CT of the chest with stable nodules. - Diagnostics: No evidence of congestive heart failure from cardiac evaluation. Plan Patient was informed and verbally consented to the use of an ambient scribe for clinic note documentation during this visit. 1. Obesity The patient is advised to continue monitoring her weight and consider lifestyle modifications including diet and exercise to manage obesity. 2. Asthma The patient is advised to restart Wixela and Singulair while discontinuing Airsupra, and to consider biologics if symptoms persist. 3. Coronary Artery Disease The patient is on aspirin 81 mg daily and should continue this regimen as part of her coronary artery disease management. 4. Hypercholesterolemia The patient is on rosuvastatin with a goal of maintaining LDL cholesterol below 70 mg/dL. 5. Diabetes Mellitus The patient is on metformin, Tresiba, and Mounjaro, and should continue monitoring her blood glucose levels, especially given the issues with the DEXCOM sensor. 6. Hypertension The patient is on furosemide, losartan, and metoprolol for hypertension management and should continue this regimen. 7. Overactive Bladder The patient prefers using pads over diapers for urinary incontinence and should discuss with her insurance for appropriate supplies. 8. Gastroesophageal Reflux Disease (Gerd) The patient should continue her current management for GERD and monitor for any exacerbations. 9. Osteoporosis The patient should continue calcium and vitamin D supplementation and follow up on bone density scans as needed. 10. Chronic Anemia The patient should continue follow-up with hematology oncology and monitor her blood counts regularly. 11. Heart Failure The patient was evaluated for heart failure, and no congestive heart failure was found; continue monitoring as needed. Discussion Notes During the visit, we discussed the management of the patient's multiple chronic conditions, including diabetes, hypertension, and hypercholesterolemia. We reviewed the importance of medication adherence and regular follow-ups with specialists such as endocrinology and hematology oncology. The patient was advised on lifestyle modifications, including diet and exercise, to manage obesity and improve overall health. We also discussed the use of compression stockings for leg swelling and the importance of monitoring blood glucose levels accurately. Patient Instructions - Continue taking all prescribed medications as directed. - Monitor blood glucose levels regularly and report any significant changes. - Use compression stockings to manage leg swelling. - Follow a healthy diet and exercise regularly to manage weight. - Schedule follow-up appointments with specialists as needed. Medications: Discontinued nitrofurantoin monohyd/m-cryst 100 mg (Macrobid) must administer with a meal/food Discontinued Reason: Patient Completed Course 100 mg PO Q12H 7 days 14 caps 0RF
--- OUTSIDE RECORDS SUMMARY | 2025-05-19 10:56 | XMS_ITS | Clinical Summary ---
Author Organization [facility] ity Address [address] [place] [address] Care Team Providers Care Head Sawyer Automatic Name Role Phone Junior Zayas MD Primary Care Provider [phone] Social History Tobacco Use Types Packs/Day Years [...] age to complete this topic Care Teams Head Sawyer Automatic Relationship Specialty Start Date End Date Junior Zayas MD [address] [place] [address] [address] [facility] [place] [address] PCP - General 05/18/16
== END 2025-05-19 10:15 | disposition home or self-care (01) ==
LOC: HO.HMCH 09:29
PROVIDERS: PCP Internal Medicine; Visit Provider Internal Medicine
DX: I25.10 Atherosclerotic heart disease of native coronary artery without angina pectoris (principal); E11.65 Type 2 diabetes mellitus with hyperglycemia; E66.9 Obesity, unspecified; Z68.30 Body mass index [BMI] 30.0-30.9, adult; E78.00 Pure hypercholesterolemia, unspecified; M81.0 Age-related osteoporosis without current pathological fracture; I10 Essential (primary) hypertension; J45.40 Moderate persistent asthma, uncomplicated; I73.9 Peripheral vascular disease, unspecified

== ENCOUNTER → 2025-05-19 09:28 | Outpatient (BNVA) | payer OTHER, SELFPAY | PROVIDERS: PCP Internal Medicine; Visit Provider Internal Medicine | DX: I25.10 Atherosclerotic heart disease of native coronary artery without angina pectoris (principal); E11.65 Type 2 diabetes mellitus with hyperglycemia; E11.51 Type 2 diabetes mellitus with diabetic peripheral angiopathy without gangrene; E78.00 Pure hypercholesterolemia, unspecified; M81.0 Age-related osteoporosis without current pathological fracture; J45.40 Moderate persistent asthma, uncomplicated; N32.81 Overactive bladder; R32 Unspecified urinary incontinence; K21.9 Gastro-esophageal reflux disease without esophagitis; E66.9 Obesity, unspecified; Z68.31 Body mass index [BMI] 31.0-31.9, adult | CPT/HCPCS: 96127; 99212 ==

== ENCOUNTER 2025-05-25 09:02 | Outpatient (AMB) | payer OTHER, SELFPAY ==
--- OUTSIDE RECORDS SUMMARY | 2014-01-05 06:31 | XMS_ITS | Continuity of Care Document ---
Author Organization [facility] Address [address] [address] Phone Care Team Providers Care Psychiatry Physician Name Role Phone [place] Amy KNIGHT Unavailable Unavailable Advance Directives Directive Yes / No Effective Date File Name No Information Encounters Encounter Description Practice Location Reason(s) For Visit Diagnoses Date Provider [facility], [address] [address], [place], [place], [id number], tel:[phone] No Information 2013 [place] Amy. [address] [place], [address]. tel:[phone] Family History Family Member Type Diagnosis Age At Onset No Information Payers Payer name Insurance type Covered libertarian ID Authoriza tion(s) No Information Social History Type Description Quantity Date Captured Comments Sex Female Smoking Status No Information Chief Complaint And Reason For Visit No Information History Of Present Illness Encounter Date Complaint History Of Prese nt Illness No Information Instructions Date Instruction Additional Infor mation No Information Assessments Type Assessment Date No Information
[2025-05-25 09:06] VITALS: BP 128/72; PULSE 80; BMI 30.1
--- NOTE | 2025-05-25 09:06 | MHC.OFFVIS ---
Vital Signs 05/25/25 09:06 Height 5 ft 2 in Weight 164 lb 7.437 oz BMI 30.1 BP 128/72 Blood Pressure Location Rt brachial Position Sitting Pulse 80 Pulse Source Pulse Oximeter Intake Visit Reasons: 6 mth f/up Buildings And Grounds Supervisor Required: Yes Buildings And Grounds Supervisor Language: Stencil Sprayer Name: khris hollingsworth [id number] Automotive Painter Helper: Automotive Painter Helper Present Allergies aspirin (Aspirin) Allergy (Mild, Verified 05/25/25 09:09) Abdominal Pain Penicillins Allergy (Mild, Verified 05/25/25 09:09) NAUSEA/STOMACH PAIN hydrochlorothiazide Allergy (Unknown, Verified 05/25/25 09:09) hypokalemia lisinopril Allergy (Unknown, Verified 05/25/25 09:09) ? swelling Grrxfye-ZNW-GyC Reductase Inhibitor Allergy (Unknown, Verified 05/25/25 09:09) Muscle cramps amlodipine Adverse Reaction (Intermediate, Verified 05/25/25 09:09) leg swelling ibuprofen (From Motrin) Adverse Reaction (Unknown, Verified 05/25/25 09:09) Abdominal Pain Medication List - Last Reconciled 05/25/25 by Nicole Son HOSPICE MUSIC THERAPIST-C [Adult pull ups- large As directed] aspirin 81 mg PO DAILY 90 days blood sugar diagnostic (SwypeShiel[employer]ch Verio test strips) Use as directed to check blood glucose three times daily. blood-glucose meter (Swype[employer]iel[employer] Verio Flex Meter) Use as directed to check blood glucose three times daily blood-glucose sensor (FreeStyle Samir 3 Plus Sensor device) Apply 1 new sensor every 15 days as directed to monitor blood glucose continuously. blood-glucose,equipment validation specialist,cont (FreeStyle Samir 3 [place]) Use daily to monitor blood glucose levels continuously. brimonidine 0.2% drps ophthalmic (eye) cetirizine (Zyrtec) 10 mg PO DAILY cholecalciferol (vitamin D3) 50 mcg PO DAILY cyanocobalamin (vitamin B-12) 1,000 mcg PO DAILY fluticasone propion-salmeterol 250-50 mcg/dose (Wixela Inhub) 1 inh inhalation Q12H 30 days gabapentin 100 mg PO BEDTIME [grab bar for shower As directed] insulin degludec (Tresiba FlexTouch U-200 insulin) 14 units (0.07 mL) subcut BEDTIME lancets ([facility] Delica Plus Lancet) Use as directed to check blood glucose three times daily latanoprost 0.005% drps ophthalmic (eye) losartan 100 mg PO DAILY metformin ER 1,000 mg PO QAM metoprolol tartrate 100 mg PO BID montelukast (Singulair) 10 mg PO BEDTIME 30 days nebulizers (Altera Nebulizer System) As directed updraft Q 4 hours prn with albuterol netarsudil 0.02% (Rhopressa) drps ophthalmic (eye) pantoprazole 40 mg PO DAILY rosuvastatin 20 mg PO DAILY tirzepatide (Mounjaro) 15 mg (0.5 mL) subcut QWEEK tizanidine mg PO BEDTIME triamcinolone acetonide 0.5% 1 appl topical BID [wipes As directed] HPI HPI 6 mth f/up: Details: Roz is a 75-year-old female with past medical history of hypertension, hyperlipidemia, diabetes, obesity, asthma, CAD, LAD stent who presents for follow-up. Today she reports that she she has been feeling good since her last visit in November. No chest discomfort at rest or with activity. At times she will notice shortness of breath which she relates to her asthma. No PND, orthopnea. She will get mild leg swelling at times, especially later in the day. She will feel brief rapid heartbeats lasting seconds then going back to normal. No lightheadedness, presyncope, syncope, falls. Takes all meds as directed. Doing only light physical activities. Daughter present. Certified healthcare interpreter used. [facility] Medical History Type 2 diabetes mellitus with cardiac complication Allergy Diabetic neuropathy GERD (gastroesophageal reflux disease) Type 2 diabetes mellitus with hypoglycemia Pulmonary nodules Hiatal hernia Orthopnea Headache Fall NSTEMI (non-ST elevated myocardial infarction) Lower extremity edema HLD (hyperlipidemia) Colon cancer screening Urinary frequency Pleural effusion, right Nocturia more than twice per night Glaucoma Cataract of left eye Renal cyst Right shoulder pain Preop exam for internal medicine On beta kamryn at home Constipation Abdominal bloating Shoulder pain, right Hip pain, left Vitamin D deficiency Osteoporosis Restless leg syndrome Type 2 diabetes mellitus with diabetic polyneuropathy Nasal congestion Chest pain Tubal ligation evaluation Gastroparesis Adrenal adenoma Pulmonary nodule Fracture of toe of left foot Positive MAGGIE (antinuclear antibody) Osteoarthritis of both knees Osteopenia Ulnar neuropathy Asthma Obesity (BMI 30-39.9) Coronary artery disease Hypercholesterolemia Surgical History History of coronary artery stent placement Hx of right cataract extraction History of esophagogastroduodenoscopy (EGD) Hx of colonoscopy History of breast biopsy History of tubal ligation History of laparoscopic cholecystectomy Family History Mother HTN (hypertension) Diabetes Brother Lung cancer Sister Cancer, colon Daughter Uterine cancer Father Prostate cancer Social History Household Members: Spouse Household Members Other:: Granddaughter is TRUCK RENTAL MANAGER lives upstairs Housing: Other Housing Other:: m2 family house Are you a primary neurocritical care physician to a significant other at home: No Do you presently have visiting nurse or other home services: No Alcohol intake: never Patient Tobacco Use Status: Former Tobacco user Tobacco use type: Cigarette e-Cigarette/Vaping Use: Never Used Second Hand Smoke Exposure: Yes service: No Current occupational status: retired and disabled Cognitive needs: No Hearing needs: No Vision needs: Yes (glasses) Review of Systems Const All systems reviewed & are unremarkable except as noted in HPI and below ENT Denies dizziness Card Denies chest pain, Denies chest pain at rest, Denies chest pain with activity, Denies rapid heart rate, Denies pedal edema, Denies edema, Reports leg edema, Denies lightheadedness, Denies palpitations, Denies dyspnea, Denies dyspnea on exertion and Denies orthopnea Resp Denies cough, Denies dyspnea and Denies dyspnea on exertion GI Denies hematochezia and Denies change in stool character Musc Details: Body and joint pains at times Denies abnormal gait, Denies limited range of motion, Denies muscle cramps, Denies muscle weakness, Denies numbness, Denies radiating pain into limb, Denies stiffness and Denies tingling Neuro Denies abnormal gait, Denies dizziness, Denies numbness and Denies tingling Endo Denies palpitations Physical Exam Vital Signs: BMI result Body Mass Index 30.1 Const General: cooperative, healthy appearing, comfortable and no acute distress Orientation/consciousness: patient oriented x3 Neck Neck: Yes normal visual inspection Resp Effort & Inspection: normal respiratory effort Auscultation: clear to auscultation bilaterally, no crackles, no rales, no rhonchi and no wheezes Cardio Jugular venous distension: no JVD Rate: regular rate Rhythm: regular rhythm Heart sounds: S1 normal heart sound present, S2 normal heart sound present, no murmurs and no rubs Neuro General: patient oriented x3 Extrem General: Yes normal to inspection, No no pedal edema and No calf tenderness Psych Appearance: grossly normal Mental Status: mental status grossly normal Speech and movement: Normal speech and movement present Assessment & Plan Assessment & Plan (1) Coronary artery disease: Comment: echo normal LV 60-65% June 2019, May 2023 distal LAD drug-eluting stent Code(s): I25.10 - Atherosclerotic heart disease of [place] coronary artery without angina pectoris Category: Medical Qualifiers: Coronary Disease-Associated Artery/Lesion type: [place] artery [place] vs. transplanted heart: [place] heart Associated angina: without angina Qualified Code(s): I25.10 - Atherosclerotic heart disease of [place] coronary artery without angina pectoris Plan: History of NSTEMI 05/11/2023, with Cardiac catheterization showing significant LAD, OM1, ramus stenosis, YVETTE placed to the mid LAD. Echocardiogram showed EF 65-70%, apical lateral and mid inferior lateral hypokinetic. She has done well since that time, without recurrent angina. Last echo 07/09/2024 showed EF 50-60%, inferior lateral wall hypokinetic. Currently no anginal symptoms. Continue aspirin indefinitely. Continue rosuvastatin and Zetia with ideal LDL goal less than 70. Labs done 02/20/2025 showed LDL 63. Continue metoprolol, amlodipine. Cardiology follow-up in 6 months, sooner if needed (2) S/P cardiac catheterization: Comment: 05/11/2023 left main normal, mid LAD 90% stenosis, distal LAD 90% stenosis, 1st OM 99% stenosis, small vessel, RCA mild luminal irregularities, ramus severe disease distal segment, small vessel, YVETTE to the mid LAD Code(s): Z98.890 - Other specified postprocedural states Category: Surgical (3) NSTEMI (non-ST elevated myocardial infarction): Comment: May 2023 distal LAD drug-eluting stent Code(s): I21.4 - Non-ST elevation (NSTEMI) myocardial infarction Category: Medical (4) Hypertension: Code(s): I10 - Essential (primary) hypertension Category: Medical Plan: Blood pressure goal less than 130/80. Good at present. No med changes made. (5) Hypercholesterolemia: Comment: Patient cannot tolerate statins Code(s): E78.00 - Pure hypercholesterolemia, unspecified Category: Medical Plan: [place] LDL goal less than 70. Currently well controlled. Continue Zetia and rosuvastatin. Plan We reviewed the diagnosis of coronary artery disease of the need to monitor for chest discomfort especially with activities. Continue physical activity as tolerated to maintain cardiac health. I discussed with the patient the importance of monitoring her symptoms and dietary changes to manage her peripheral edema. We agreed on using the water pill as needed and maintaining a low-salt diet. Follow-up is scheduled in six months unless new symptoms arise. Patient Instructions: - Monitor symptoms and report any new or worsening conditions. - Use the water pill as needed for leg swelling. - Follow a low-salt diet to help manage edema. - Elevate legs when sitting to reduce swelling. - Return for follow-up in six months or sooner if symptoms worsen. Patient was informed and verbally consented to the use of an ambient scribe for clinic note documentation during this visit. Visit time spent on chart review, interview, assessment, orders, documentation. Coding Level of Care Code Est Pt Level 4 (95101) Complex EM visit Add On G2211 Diagnoses Coronary artery disease involving [place] coronary artery of [place] heart without angina pectoris I25.10 Coronary Disease-Associated Artery/Lesion type: [place] artery [place] vs. transplanted heart: [place] heart Associated angina: without angina S/P cardiac catheterization Z98.890 NSTEMI (non-ST elevated myocardial infarction) I21.4 Hypertension I10 Hypercholesterolemia E78.00 Time Spent (min) 28
--- OUTSIDE RECORDS SUMMARY | 2025-05-25 10:32 | XMS_ITS | Clinical Summary ---
Author Organization [employer] [facility] ity Address [address] [place] [address] Care Team Providers Care Vending Manager Name Role Phone Junior Zayas MD Primary Care Provider [phone] Social History Tobacco Use Types Packs/Day Years [...] age to complete this topic Care Teams Vending Manager Relationship Specialty Start Date End Date Junior Zayas MD [address] [place] [address] [address] [facility] [place] [address] PCP - General 05/18/16
== END 2025-05-25 09:30 | disposition home or self-care (01) ==
LOC: HO.HCS 09:02
PROVIDERS: PCP Internal Medicine; Visit Provider Nurse Practitioner Family
DX: I25.10 Atherosclerotic heart disease of native coronary artery without angina pectoris (principal); Z98.890 Other specified postprocedural states; I21.4 Non-ST elevation (NSTEMI) myocardial infarction; I10 Essential (primary) hypertension; E78.00 Pure hypercholesterolemia, unspecified
CPT/HCPCS: 99214; G2211

== ENCOUNTER → 2025-05-25 09:02 | Outpatient (BNVA) | payer OTHER, SELFPAY | PROVIDERS: PCP Internal Medicine; Visit Provider Nurse Practitioner Family | DX: I25.10 Atherosclerotic heart disease of native coronary artery without angina pectoris (principal); I10 Essential (primary) hypertension; E78.00 Pure hypercholesterolemia, unspecified; I21.4 Non-ST elevation (NSTEMI) myocardial infarction | CPT/HCPCS: 99212 ==

== ENCOUNTER 2025-06-08 11:11 | Outpatient (AMB) | payer OTHER, SELFPAY ==
--- OUTSIDE RECORDS SUMMARY | 2014-01-05 06:31 | XMS_ITS | Continuity of Care Document ---
Author Organization [facility] Address [address] [address] Phone Care Team Providers Care Director Of Product Management Name Role Phone [place] Amy KNIGHT Unavailable Unavailable Advance Directives Directive Yes / No Effective Date File Name No Information Encounters Encounter Description Practice Location Reason(s) For Visit Diagnoses Date Provider [facility], [address] [address], [place], [place], [id number], tel:[phone] No Information 2013 [place] Amy. [address] [place], [address]. tel:[phone] Family History Family Member Type Diagnosis Age [...]
--- NOTE | 2025-06-08 11:18 | MHC.PC.OV ---
Vital Signs 06/08/25 11:19 Height 5 ft 2 in Weight 164 lb 4 oz BMI 30.0 BP 140/62 H Blood Pressure Location Lt brachial Position Sitting Pulse 80 Pulse Source Pulse Oximeter Temp 97.3 F Temp Source Temporal Artery Scan Pulse Oximetry (%) 97 Oxygen Delivery Method Room Air Intake Visit Reasons: Rash over whole body Intake Note: Patient is here to follow up on Rash over whole body with itchiness. No new changes to diet, medication, body wash or laundry soap. Pt tried OTC Benadryl and Calamine lotion wit little effect. Reinsurance Accountant Required: Yes Reinsurance Accountant Language: Silk Screen Printer Name: Isadora ([id number]) Information Interpreted: non-clinical & clinical Deputy K 9: Present Accompanied by: Daughter Allergies aspirin (Aspirin) Allergy (Mild, Verified 06/08/25 11:19) Abdominal Pain Penicillins Allergy (Mild, Verified 06/08/25 11:19) NAUSEA/STOMACH PAIN hydrochlorothiazide Allergy (Unknown, Verified 06/08/25 11:19) hypokalemia lisinopril Allergy (Unknown, Verified 06/08/25 11:19) ? swelling Lgfispm-GOS-OoA Reductase Inhibitor Allergy (Unknown, Verified 06/08/25 11:19) Muscle cramps amlodipine Adverse Reaction (Intermediate, Verified 06/08/25 11:19) leg swelling ibuprofen (From Motrin) Adverse Reaction (Unknown, Verified 06/08/25 11:19) Abdominal Pain Medication List - Last Reconciled 06/08/25 by Mat Bearden MD [Adult pull ups- large As directed] aspirin 81 mg PO DAILY 90 days blood sugar diagnostic (OneTouch Verio test strips) Use as directed to check blood glucose three times daily. blood-glucose meter (OneTouch Verio Flex Meter) Use as directed to check blood glucose three times daily blood-glucose sensor (FreeStyle Samir 3 Plus Sensor device) Apply 1 new sensor every 15 days as directed to monitor blood glucose continuously. blood-glucose,preparation center coordinator,cont (FreeStyle Samir 3 [place]) Use daily to monitor blood glucose levels continuously. brimonidine 0.2% drps ophthalmic (eye) cetirizine (Zyrtec) 10 mg PO DAILY cholecalciferol (vitamin D3) 50 mcg PO DAILY cyanocobalamin (vitamin B-12) 1,000 mcg PO DAILY fluticasone propion-salmeterol 250-50 mcg/dose (Wixela Inhub) 1 inh inhalation Q12H 30 days gabapentin 100 mg PO BEDTIME [grab bar for shower As directed] insulin degludec (Tresiba FlexTouch U-200 insulin) 14 units (0.07 mL) subcut BEDTIME lancets (OneTouch Delica Plus Lancet) Use as directed to check blood glucose three times daily latanoprost 0.005% drps ophthalmic (eye) losartan 100 mg PO DAILY metformin ER 1,000 mg PO QAM metoprolol tartrate 100 mg PO BID montelukast (Singulair) 10 mg PO BEDTIME 30 days nebulizers ([employer] Nebulizer System) As directed updraft Q 4 hours prn with albuterol netarsudil 0.02% (Rhopressa) drps ophthalmic (eye) pantoprazole 40 mg PO DAILY rosuvastatin 20 mg PO DAILY tirzepatide (Mounjaro) 15 mg (0.5 mL) subcut QWEEK tizanidine mg PO BEDTIME triamcinolone acetonide 0.5% 1 appl topical BID [wipes As directed] Tobacco use date assessed: 06/08/25 Fall risk assessment: No Falls in past year Last assessed Fall Risk: 06/08/25 Dental Screening Dental Screen Date: 10/21/24 HPI HPI Comments History of Present Illness Details The patient is a 75-year-old female presenting with a diffuse rash and itching. The symptoms began on Sunday morning after waking up, despite going to sleep without any issues the previous night. The patient reports that the itchiness is widespread across her body and is described as severe and persistent. She has not experienced any associated pain, fever, or chills. The patient has not tried any new detergents, soaps, or foods that could have triggered the reaction, except for a sausage she had previously consumed without issues. She has attempted relief with Benadryl, which provides temporary relief for about 15 to 20 minutes, but the itchiness returns. [facility] Medical History Type 2 diabetes mellitus with cardiac complication Allergy Diabetic neuropathy GERD (gastroesophageal reflux disease) Type 2 diabetes mellitus with hypoglycemia Pulmonary nodules Hiatal hernia Orthopnea Headache Fall NSTEMI (non-ST elevated myocardial infarction) Lower extremity edema HLD (hyperlipidemia) Colon cancer screening Urinary frequency Pleural effusion, right Nocturia more than twice per night Glaucoma Cataract of left eye Renal cyst Right shoulder pain Preop exam for internal medicine On beta kamryn at home Constipation Abdominal bloating Shoulder pain, right Hip pain, left Vitamin D deficiency Osteoporosis Restless leg syndrome Type 2 diabetes mellitus with diabetic polyneuropathy Nasal congestion Chest pain Tubal ligation evaluation Gastroparesis Adrenal adenoma Pulmonary nodule Fracture of toe of left foot Positive MAGGIE (antinuclear antibody) Osteoarthritis of both knees Osteopenia Ulnar neuropathy Asthma Obesity (BMI 30-39.9) Coronary artery disease Hypercholesterolemia Surgical History History of coronary artery stent placement Hx of right cataract extraction History of esophagogastroduodenoscopy (EGD) Hx of colonoscopy History of breast biopsy History of tubal ligation History of laparoscopic cholecystectomy Family History Mother HTN (hypertension) Diabetes Brother Lung cancer Sister Cancer, colon Daughter Uterine cancer Father Prostate cancer Social History Household Members: Spouse Household Members Other:: Granddaughter is SNORKELLING INSTRUCTOR lives upstairs Housing: Other Housing Other:: m2 family house Are you a primary clinical manager home care to a significant other at home: No Do you presently have visiting nurse or other home services: No Alcohol intake: never Patient Tobacco Use Status: Former Tobacco user Tobacco use type: Cigarette e-Cigarette/Vaping Use: Never Used Second Hand Smoke Exposure: Yes service: No Current occupational status: retired and disabled Cognitive needs: No Hearing needs: No Vision needs: Yes (glasses) Questionnaire Thrive Questionnaire Date Thrive assessed: 05/19/25 I am a: Parent/Caregiver What is your living situation today?: I have a steady place to live Within the past 12 months, did the food you bought not last and you didn't have the money to get more?: I choose not to answer this question Within the past 12 months, did you worry whether your food would run out before you got money to buy more?: Never true Do you have trouble paying for medicines?: No Do you have trouble getting transportation to medical appointments?: No Do you have trouble paying your heating and electricity bill?: No Do you have trouble taking care of your child, family member or friend?: No Do you have trouble with day-to-day activities such as bathing, preparing meals, shopping, managing finances, etc.?: I choose not to answer this question Are you currently unemployed and looking for a job?: No Are you interested in more education?: No Please select the resources that you would like help with: None Currently or been in a relationship where the following occur: I choose not to answer THRIVE Score: 0 QUYNH-7 AMB Questionnaire QUYNH-7 Date QUYNH - 7 assessed: 10/21/24 Source: Developed by Drs. Jhon Cedeño, Cara Park, Isaias Michael and colleagues, with an educational joey from [employer]. Review of Systems Const Details: Positives besides what was mentioned in HPI are in BOLD Constitutional: No Weight Change, No Fever, No Chills, No Night Sweats, No Fatigue, No Malaise ENT/Mouth: No Hearing Changes, No Ear Pain, No Nasal Congestion, No Sinus Pain, No Hoarseness, No sore throat, No Rhinorrhea, No Swallowing Difficulty Eyes: No Eye Pain, No Swelling, No Redness, No Foreign Body, No Discharge, No Vision Changes Cardiovascular: No Chest Pain, No SOB, No PND, No Dyspnea on Exertion, No Orthopnea, No Claudication, No Edema, No Palpitations Respiratory: No Cough, No Sputum, No Wheezing, No Smoke Exposure, No Dyspnea Gastrointestinal: No Nausea, No Vomiting, No Diarrhea, No Constipation, No Pain, No Heartburn, No Anorexia, No Dysphagia, No Hematochezia, No Melena, No Flatulence, No Jaundice Genitourinary: No Dysmenorrhea, No DUB, No Dyspareunia, No Dysuria, No Urinary Frequency, No Hematuria, No Urinary Incontinence, No Urgency, No Flank Pain, No Urinary Flow Changes, No Hesitancy Musculoskeletal: No Arthralgias, No Myalgias, No Joint Swelling, No Joint Stiffness, No Back Pain, No Neck Pain, No Injury History Skin: No Skin Lesions, No Pruritis, No Hair Changes, No Breast/Skin Changes, No Nipple Discharge Neuro: No Weakness, No Numbness, No Paresthesias, No Loss of Consciousness, No Syncope, No Dizziness, No Headache, No Coordination Changes, No Recent Falls Psych: No Anxiety/Panic, No Depression, No Insomnia, No Personality Changes, No Delusions, No Rumination, No SI/HI/AH/VH, No Social Issues, No Memory Changes, No Violence/Abuse Hx., No Eating Concerns Heme/Lymph: No Bruising, No Bleeding, No Transfusions History, No Lymphadenopathy Endocrine: No Polyuria, No Polydipsia, No Temperature Intolerance Physical exam (Primary Care) Vital Signs: Last Vital Signs Temp 97.3 F 06/08/25 11:19 Pulse 80 06/08/25 11:19 BP 140/62 H 06/08/25 11:19 Pulse Ox 97 06/08/25 11:19 Oxygen Delivery Method Room Air 06/08/25 11:19 BMI result Body Mass Index 30.0 Tobacco/Smoking Status: Tobacco use Status Tobacco use date assessed 06/08/25 06/08/25 11:32 Patient Tobacco Use Status Former Tobacco user 06/08/25 11:32 Tobacco use type Cigarette 06/08/25 11:32 e-Cigarette/Vaping Use Never Used 06/08/25 11:32 Thrive Assessment: Date of Thrive Assessment Date Thrive assessed 05/19/25 06/08/25 11:32 Currently or been in a relationship where the following occur: I choose not to answer Const Other: Pertinent findings are in BOLD GENERAL APPEARANCE NAD, activity normal for age, well developed/ well nourished, no cyanosis, pallor, or diaphoresis. EYES lids/conjunctiva normal. EARS/NOSE/THROAT Mucous membranes moist, nares normal, lips/teeth normal uvula midline without oral pharyngeal erythema, exudate or swelling TMs normal bilaterally. No lymphangitis/lymphedema. HEAD/NECK normocephalic atraumatic, no facial trauma, neck is supple. RESPIRATORY respiratory effort normal, speaks in full sentences, no tripod position, no accessory muscle use. Lungs clear to auscultation without rhonchi, wheezes, rales CARDIAC Regular rate and rhythm, no edema. ABDOMINAL Soft, ND/NT. No evidence of fluid wave. No pulsatile masses on exam, rebound tenderness, Reed sign or pain over Mcburney's point. MUSCLES/EXTREMITIES No abnormal range of motion, no swelling. SKIN Warm, pink and dry. diffuse hives especially in groin and under the breast areas. NEUROLOGICAL Speech is clear and appropriate. Normal level of consciousness. Gait and coordination are normal. 5/5 strength in all extremities. PSYCH Normal mood and affect. Judgement/competence is appropriate Coding Level of Care Code Est Pt Level 3 (36423) Diagnoses Urticaria L50.9 Time Spent (min) 20 Assessment & Plan Assessment & Plan (1) Urticaria: Code(s): L50.9 - Urticaria, unspecified Category: Medical Plan: - Prescribed a short course of prednisone 10 mg for seven days. - Advised to continue using Benadryl every eight hours for symptomatic relief. - Referred to a blood bank technologist for further evaluation and management. - Recommended keeping a diary of any potential allergens or changes in environment or diet. - Scheduled a follow-up appointment in three weeks to reassess if unable to see the blood bank technologist. Plan I discussed with the patient that the likely diagnosis is an allergic reaction, which should improve with the prescribed treatment. I explained the use of oral corticosteroids and Benadryl for symptom management and emphasized the importance of seeing a blood bank technologist for further evaluation. We also discussed keeping a diary of potential allergens and scheduling a follow-up appointment in three weeks if the blood bank technologist is not available sooner. Orders: Referrals Dermatology Referral L50.9 - Urticaria, unspecified Medications: New hydrocortisone 1% (Cortisone (hydrocortisone)) 1 appl topical TID PRN 453.6 grams 0RF skin irritation prednisone 10 mg PO DAILY 7 tabs 0RF
[2025-06-08 11:19] VITALS: BP 140/62; PULSE 80; TEMP 36.3; O2SAT 97
--- OUTSIDE RECORDS SUMMARY | 2025-06-08 12:41 | XMS_ITS | Clinical Summary ---
Author Organization [employer] [facility] ity Address [address] [place] [address] Care Team Providers Care Electrician Bus Name Role Phone Junior Zayas MD Primary Care Provider [phone] Social History Tobacco Use Types Packs/Day Years [...] age to complete this topic Care Teams Electrician Bus Relationship Specialty Start Date End Date Junior Zayas MD [address] [place] [address] [address] [facility] [place] [address] PCP - General 05/18/16
== END 2025-06-08 11:47 | disposition home or self-care (01) ==
LOC: HO.HMCH 11:12
PROVIDERS: PCP Internal Medicine; Visit Provider Internal Medicine
DX: L50.9 Urticaria, unspecified (principal)

== ENCOUNTER → 2025-06-08 11:11 | Outpatient (BNVA) | payer OTHER, SELFPAY | PROVIDERS: PCP Internal Medicine; Visit Provider Internal Medicine | DX: I25.2 Old myocardial infarction (principal); L50.9 Urticaria, unspecified | CPT/HCPCS: 99212 ==

== ENCOUNTER 2025-06-09 11:29 | Outpatient (AMB) | payer OTHER, SELFPAY ==
--- OUTSIDE RECORDS SUMMARY | 2014-01-05 06:31 | XMS_ITS | Continuity of Care Document ---
Author Organization [facility] Address [address] [address] Phone Care Team Providers Care Coal Mine Inspector Name Role Phone [place] Amy KNGIHT Unavailable Unavailable Advance Directives Directive Yes / No Effective Date File Name No Information Encounters Encounter Description Practice Location Reason(s) For Visit Diagnoses Date Provider [facility], [address] [address], [place], [place], [id number], tel:[phone] No Information 2013 [place] Amy. [address] [place], [address]. tel:[phone] Family History Family Member Type Diagnosis Age At Onset No Information Payers Payer name Insurance type Covered constitution party ID Authoriza tion(s) No Information Social History Type Description Quantity Date Captured Comments Sex Female Smoking Status No Information Chief Complaint And Reason For Visit No Information History Of Present Illness Encounter Date Complaint History Of Prese nt Illness No Information Instructions Date Instruction Additional Infor mation No Information Assessments Type Assessment Date No Information
[2025-06-09 11:33] VITALS: BP 169/89; PULSE 82; O2SAT 98; BMI 30.5
--- NOTE | 2025-06-09 11:33 | A.OFFVIS_ITS ---
Vital Signs 06/09/25 11:33 06/09/25 12:15 Height 5 ft 2 in Weight 166 lb 10.711 oz BMI 30.5 BP 169/89 H 144/82 H Blood Pressure Location Lt brachial Position Sitting Pulse 82 Pulse Source Pulse Oximeter Pulse Oximetry (%) 98 Oxygen Delivery Method Room Air Intake Visit Reasons: Type II diabetes Intake Note: Patient present today for Type 2 Diabetes Mellitus Last Diabetic eye exam:?April at [facility] Last Podiatry Visit:?Does not have financial services rep Random Glucose:? mg/dl 149 HgA1C: 7.4%? 05/13/25 Patient is concerned about bruise on left big toe. She states no pain, did not know it was there. Icebox Worker Required: Yes Icebox Worker Language: Superintendent Colliery Services: Icebox Worker Present Icebox Worker Name: Rianna [id number] Accompanied by: Daughter Allergies aspirin (Aspirin) Allergy (Mild, Verified 06/08/25 11:19) Abdominal Pain Penicillins Allergy (Mild, Verified 06/08/25 11:19) NAUSEA/STOMACH PAIN hydrochlorothiazide Allergy (Unknown, Verified 06/08/25 11:19) hypokalemia lisinopril Allergy (Unknown, Verified 06/08/25 11:19) ? swelling Qvzkuyb-YFY-ErY Reductase Inhibitor Allergy (Unknown, Verified 06/08/25 11:19) Muscle cramps amlodipine Adverse Reaction (Intermediate, Verified 06/08/25 11:19) leg swelling ibuprofen (From Motrin) Adverse Reaction (Unknown, Verified 06/08/25 11:19) Abdominal Pain HPI Comments Details: This is a 75-year-old female with a past medical history of coronary artery disease, type 2 diabetes, hyperlipidemia, osteopenia, adrenal adenoma, osteoporosis and hypertension presenting for diabetic management. Her daughter, Roya, is here. Upper Sorbian video proof inspector used. She did not receive the [employer] 3+ reader and sensors yet, but I contacted [facility], and she just test to confirm delivery. I provided her with the contact number to call them. She is using her glucometer. Endorses a few higher blood sugars this week because she is on prednisone due to an episode of hives after changing soap. Her blood pressure is also mildly elevated today. Current medications: Metformin ER to 1000 mg qam (diarrhea resolved since decreasing the dose) Tresiba 14 units nightly Mounjaro 15 mg weekly. Past medication: Lantus switch to Tresiba due to hypoglycemia Compliance issues: She is taking her medications. Hypoglycemia symptoms: None Hyperglycemia symptoms: none Eye exam: [facility] Microvascular complications: OU retinopathy, neuropathy treated with gabapentin Macrovascular complications: CAD Hypertension: Patient is on an Arb. Hyperlipidemia: treated with Rosuvastatin 20 mg. ROS: Constitutional: No unexplained weight loss, fever, chills, fatigue. Eyes: No vision change Gastrointestinal: No anorexia, nausea, vomiting or diarrhea. No abdominal pain Skin: No open wounds or rashes. see HPI Physical exam: Constitutional: Alert, in no distress. Neck: Supple, Full range of motion. No lymphadenopathy. No palpable thyroid masses. Respiratory: Clear to auscultation. Cardiovascular: S1 S2 regular. No murmurs. Skin: No raised wheals but there are some erythematous macular lesions on the upper arms and abdomen and legs. [facility] Medical History Type 2 diabetes mellitus with cardiac complication Allergy Diabetic neuropathy GERD (gastroesophageal reflux disease) Type 2 diabetes mellitus with hypoglycemia Pulmonary nodules Hiatal hernia Orthopnea Headache Fall NSTEMI (non-ST elevated myocardial infarction) Lower extremity edema HLD (hyperlipidemia) Colon cancer screening Urinary frequency Pleural effusion, right Nocturia more than twice per night Glaucoma Cataract of left eye Renal cyst Right shoulder pain Preop exam for internal medicine On beta kamryn at home Constipation Abdominal bloating Shoulder pain, right Hip pain, left Vitamin D deficiency Osteoporosis Restless leg syndrome Type 2 diabetes mellitus with diabetic polyneuropathy Nasal congestion Chest pain Tubal ligation evaluation Gastroparesis Adrenal adenoma Pulmonary nodule Fracture of toe of left foot Positive MAGGIE (antinuclear antibody) Osteoarthritis of both knees Osteopenia Ulnar neuropathy Asthma Obesity (BMI 30-39.9) Coronary artery disease Hypercholesterolemia Surgical History History of coronary artery stent placement Hx of right cataract extraction History of esophagogastroduodenoscopy (EGD) Hx of colonoscopy History of breast biopsy History of tubal ligation History of laparoscopic cholecystectomy Family History Mother HTN (hypertension) Diabetes Brother Lung cancer Sister Cancer, colon Daughter Uterine cancer Father Prostate cancer Social History Household Members: Spouse Household Members Other:: Granddaughter is CARP[employer] lives upstairs Housing: Other Housing Other:: m2 family house Are you a primary nurse wound care to a significant other at home: No Do you presently have visiting nurse or other home services: No Alcohol intake: never Patient Tobacco Use Status: Former Tobacco user Tobacco use type: Cigarette e-Cigarette/Vaping Use: Never Used Second Hand Smoke Exposure: Yes service: No Current occupational status: retired and disabled Cognitive needs: No Hearing needs: No Vision needs: Yes (glasses) Physical Exam Vital Signs: BMI result Body Mass Index 30.5 Results Reviewed Results Reviewed: Laboratory Tests 02/20/25 02/20/25 03/08/25 07:30 08:00 20:30 Plt Count Creatinine 0.78 Estimated GFR > 60 Hgb A1c (Clinic) AST 35 H ALT 29 B-Natriuretic Peptide 40 Triglycerides 65 Cholesterol 129 LDL Cholesterol, Calc 63 HDL Cholesterol 53 Vitamin B12 950 H TSH 0.58 Urine Microalbumin 33.0 Microalb/Creat Ratio 17.0 04/28/25 05/01/25 10:54 10:19 Plt Count 235 D Creatinine Estimated GFR Hgb A1c (Clinic) 7.8 H AST ALT B-Natriuretic Peptide Triglycerides Cholesterol LDL Cholesterol, Calc HDL Cholesterol Vitamin B12 TSH Urine Microalbumin Microalb/Creat Ratio Assessment & Plan Assessment & Plan (1) Type 2 diabetes mellitus with cardiac complication: Code(s): E11.59 - Type 2 diabetes mellitus with other circulatory complications Category: Medical (2) Diabetic neuropathy: Code(s): E11.40 - Type 2 diabetes mellitus with diabetic neuropathy, unspecified Category: Medical Qualifiers: Diabetes mellitus complication detail: diabetic mononeuropathy Diabetes mellitus type: type 2 Qualified Code(s): E11.41 - Type 2 diabetes mellitus with diabetic mononeuropathy Plan In summary this is a 75-year-old female with type 2 diabetes. Discussed pathophysiology of Type II Diabetes Mellitus with the patient in detail.? I explained the extermination inspector risks and complications associated with uncontrolled diabetes including nephropathy, neuropathy, peripheral vascular disease, retinopathy, increased risk of heart disease and stroke.? Lifestyle modification, diabetic diet reviewed with the patient and her daughter.. Her Dexcom was not providing accurate readings. She is going to call [facility] to confirm delivery for Samir 3+. Continue metformin extended release 1000 mg daily. Continue Tresiba 14 units daily. Continue Mounjaro to 15 mg weekly. Reviewed treatment of hypoglycemia. Patient says she has glucose tablets at [facility]. Continue gabapentin 100 mg at bedtime for neuropathy. She will follow up at the end of July when she is due for her next A1c. Medications: New metformin ER 1,000 mg (2 x 500 mg) PO QAM 180 tabs 1RF Changed From insulin degludec (Tresiba FlexTouch U-200 insulin) Replaces lantus (insulin glargine) 14 units (0.07 mL) subcut BEDTIME 9 mL 5RF To insulin degludec (Tresiba FlexTouch U-200 insulin) 14 units (0.07 mL) subcut BEDTIME 9 mL 5RF Coding Level of Care Code Est Pt Level 4 (57358) Complex EM visit Add On G2211 Diagnoses Type 2 diabetes mellitus with cardiac complication E11.59 Diabetic mononeuropathy associated with type 2 diabetes mellitus E11.41 Diabetes mellitus complication detail: diabetic mononeuropathy Diabetes mellitus type: type 2
[2025-06-09 12:04] LABS: Glucose, Whole Blood 149 mg/dL (60-115)
[2025-06-09 12:15] VITALS: BP 144/82
--- OUTSIDE RECORDS SUMMARY | 2025-06-09 12:55 | XMS_ITS | Clinical Summary ---
Author Organization [email or web address] [facility] ity Address [address] [place] [address] Care Team Providers Care Fumigator And Sterilizer Name Role Phone Junior Zayas MD Primary Care Provider [phone] Social History Tobacco Use Types Packs/Day Years [...] age to complete this topic Care Teams Fumigator And Sterilizer Relationship Specialty Start Date End Date Junior Zayas MD [address] [place] [address] [address] [facility] [address] PCP - General 05/18/16
== END 2025-06-09 12:23 | disposition home or self-care (01) ==
LOC: HO.ENCR 11:29
PROVIDERS: PCP Internal Medicine; Visit Provider Physician Assistant Medical
DX: E11.59 Type 2 diabetes mellitus with other circulatory complications (principal); E11.41 Type 2 diabetes mellitus with diabetic mononeuropathy

== ENCOUNTER → 2025-06-09 11:29 | Outpatient (BNVA) | payer OTHER, SELFPAY | PROVIDERS: PCP Internal Medicine; Visit Provider Physician Assistant Medical | DX: E11.40 Type 2 diabetes mellitus with diabetic neuropathy, unspecified (principal) | CPT/HCPCS: 82947; 99212 ==

== ENCOUNTER 2025-06-25 14:47 | Outpatient (AMB) | payer OTHER, SELFPAY ==
--- OUTSIDE RECORDS SUMMARY | 2014-01-05 06:31 | XMS_ITS | Continuity of Care Document ---
Author Organization [facility] Address [address] [address] Phone Care Team Providers Care Bulk Sealer Operator Name Role Phone [place] Amy KNIGHT Unavailable Unavailable Advance Directives Directive Yes / No Effective Date File Name No Information Encounters Encounter Description Practice Location Reason(s) For Visit Diagnoses Date Provider [facility], [address] [address], [place], [place], [id number], tel:[phone] No Information 2013 [place] Amy. [address] [place], [address]. tel:[phone] Family History Family Member Type Diagnosis Age At Onset No Information Payers Payer name Insurance type Covered green party ID Authoriza tion(s) No Information Social History Type Description Quantity Date Captured Comments Sex Female Smoking Status No Information Chief Complaint And Reason For Visit No Information History Of Present Illness Encounter Date Complaint History Of Prese nt Illness No Information Instructions Date Instruction Additional Infor mation No Information Assessments Type Assessment Date No Information
--- NOTE | 2025-06-25 15:01 | MHC.PC.OV ---
Vital Signs 06/25/25 15:02 Height 5 ft 2 in Weight 154 lb 6 oz BMI 28.2 BP 134/68 Blood Pressure Location Lt brachial Position Sitting Pulse 83 Pulse Source Pulse Oximeter Temp 97.1 F Temp Source Temporal Artery Scan Pulse Oximetry (%) 95 Oxygen Delivery Method Room Air Intake Visit Reasons: Neuropathy/3 week follow up Intake Note: Patient is here to follow up on Neuropathy. Barker Peeler Required: Yes Barker Peeler Language: Ecclesiastical Worker Name: Lamar ([id number]) Information Interpreted: non-clinical & clinical Driver Messenger: Present Accompanied by: Daughter Allergies aspirin (Aspirin) Allergy (Mild, Verified 06/25/25 15:02) Abdominal Pain Penicillins Allergy (Mild, Verified 06/25/25 15:02) NAUSEA/STOMACH PAIN hydrochlorothiazide Allergy (Unknown, Verified 06/25/25 15:02) hypokalemia lisinopril Allergy (Unknown, Verified 06/25/25 15:02) ? swelling Crgmcij-EKX-YtY Reductase Inhibitor Allergy (Unknown, Verified 06/25/25 15:02) Muscle cramps amlodipine Adverse Reaction (Intermediate, Verified 06/25/25 15:02) leg swelling ibuprofen (From Motrin) Adverse Reaction (Unknown, Verified 06/25/25 15:02) Abdominal Pain Medication List - Last Reconciled 06/25/25 by Mat Bearden MD [Adult pull ups- large As directed] aspirin 81 mg PO DAILY 90 days blood sugar diagnostic (OneTouch Verio test strips) Use as directed to check blood glucose three times daily. blood-glucose meter (LimeTrayTouch Verio Flex Meter) Use as directed to check blood glucose three times daily blood-glucose sensor (FreeStyle Samir 3 Plus Sensor device) Apply 1 new sensor every 15 days as directed to monitor blood glucose continuously. blood-glucose,broadcast meteorologist,cont (FreeStyle Samir 3 [place]) Use daily to monitor blood glucose levels continuously. brimonidine 0.2% drps ophthalmic (eye) cetirizine (Zyrtec) 10 mg PO DAILY cholecalciferol (vitamin D3) 50 mcg PO DAILY cyanocobalamin (vitamin B-12) 1,000 mcg PO DAILY fluticasone propion-salmeterol 250-50 mcg/dose (Wixela Inhub) 1 inh inhalation Q12H 30 days [grab bar for shower As directed] hydrocortisone 1% (Cortisone (hydrocortisone)) 1 appl topical TID PRN insulin degludec (Tresiba FlexTouch U-200 insulin) 14 units (0.07 mL) subcut BEDTIME lancets (OneTouch Delica Plus Lancet) Use as directed to check blood glucose three times daily latanoprost 0.005% drps ophthalmic (eye) losartan 100 mg PO DAILY metformin ER 1,000 mg (2 x 500 mg) PO QAM metoprolol tartrate 100 mg PO BID montelukast (Singulair) 10 mg PO BEDTIME 30 days nebulizers (GoFormza Nebulizer System) As directed updraft Q 4 hours prn with albuterol netarsudil 0.02% (Rhopressa) drps ophthalmic (eye) pantoprazole 40 mg PO DAILY rosuvastatin 20 mg PO DAILY tirzepatide (Mounjaro) 15 mg (0.5 mL) subcut QWEEK tizanidine mg PO BEDTIME triamcinolone acetonide 0.5% 1 appl topical BID [wipes As directed] Tobacco use date assessed: 06/25/25 Fall risk assessment: No Falls in past year Last assessed Fall Risk: 06/25/25 Dental Screening Dental Screen Date: 10/21/24 HPI HPI Comments History of Present Illness Details The patient is a 75-year-old female presenting with diabetic neuropathy. She reports experiencing significant pain in both legs, with one leg being more affected than the other, characterized by numbness and sharp, needle-like sensations. The symptoms have been persistent despite medication, and she has been taking gabapentin for approximately six months without significant improvement in pain. The patient also experiences leg cramps, which were initially managed with gabapentin. However, she reports side effects such as dry mouth and se was worried this was related to the gabapentin. The patient has a history of dehydration, likely related to inadequate fluid intake and diuretic use, leading to frequent urination. [facility] Medical History Type 2 diabetes mellitus with cardiac complication Allergy Diabetic neuropathy GERD (gastroesophageal reflux disease) Type 2 diabetes mellitus with hypoglycemia Pulmonary nodules Hiatal hernia Orthopnea Headache Fall NSTEMI (non-ST elevated myocardial infarction) Lower extremity edema HLD (hyperlipidemia) Colon cancer screening Urinary frequency Pleural effusion, right Nocturia more than twice per night Glaucoma Cataract of left eye Renal cyst Right shoulder pain Preop exam for internal medicine On beta kamryn at home Constipation Abdominal bloating Shoulder pain, right Hip pain, left Vitamin D deficiency Osteoporosis Restless leg syndrome Type 2 diabetes mellitus with diabetic polyneuropathy Nasal congestion Chest pain Tubal ligation evaluation Gastroparesis Adrenal adenoma Pulmonary nodule Fracture of toe of left foot Positive MAGGIE (antinuclear antibody) Osteoarthritis of both knees Osteopenia Ulnar neuropathy Asthma Obesity (BMI 30-39.9) Coronary artery disease Hypercholesterolemia Surgical History History of coronary artery stent placement Hx of right cataract extraction History of esophagogastroduodenoscopy (EGD) Hx of colonoscopy History of breast biopsy History of tubal ligation History of laparoscopic cholecystectomy Family History (Reviewed 06/25/25 @ 15: by NGUYEN Abel) Mother HTN (hypertension) Diabetes Brother Lung cancer Sister Cancer, colon Daughter Uterine cancer Father Prostate cancer Social History (Reviewed 06/25/25 @ 15: by NGUYEN Abel) Household Members: Spouse Household Members Other:: Granddaughter is FENDER FINISHER lives upstairs Housing: Other Housing Other:: m2 family house Are you a primary special needs child caregiver to a significant other at home: No Do you presently have visiting nurse or other home services: No Alcohol intake: never Patient Tobacco Use Status: Former Tobacco user Tobacco use type: Cigarette e-Cigarette/Vaping Use: Never Used Second Hand Smoke Exposure: Yes service: No Current occupational status: retired and disabled Cognitive needs: No Hearing needs: No Vision needs: Yes (glasses) Questionnaire Thrive Questionnaire Date Thrive assessed: 05/19/25 I am a: Parent/Caregiver What is your living situation today?: I have a steady place to live Within the past 12 months, did the food you bought not last and you didn't have the money to get more?: I choose not to answer this question Within the past 12 months, did you worry whether your food would run out before you got money to buy more?: Never true Do you have trouble paying for medicines?: No Do you have trouble getting transportation to medical appointments?: No Do you have trouble paying your heating and electricity bill?: No Do you have trouble taking care of your child, family member or friend?: No Do you have trouble with day-to-day activities such as bathing, preparing meals, shopping, managing finances, etc.?: I choose not to answer this question Are you currently unemployed and looking for a job?: No Are you interested in more education?: No Please select the resources that you would like help with: None Currently or been in a relationship where the following occur: I choose not to answer THRIVE Score: 0 QUYNH-7 AMB Questionnaire QUYNH-7 Date QUYNH - 7 assessed: 10/21/24 Source: Developed by Drs. Jhon Cedeño, Cara Park, Isaias Michael and colleagues, with an educational joey from [employer]. Review of Systems Const Details: Positives besides what was mentioned in HPI are in BOLD Constitutional: No Weight Change, No Fever, No Chills, No Night Sweats, No Fatigue, No Malaise ENT/Mouth: No Hearing Changes, No Ear Pain, No Nasal Congestion, No Sinus Pain, No Hoarseness, No sore throat, No Rhinorrhea, No Swallowing Difficulty Eyes: No Eye Pain, No Swelling, No Redness, No Foreign Body, No Discharge, No Vision Changes Cardiovascular: No Chest Pain, No SOB, No PND, No Dyspnea on Exertion, No Orthopnea, No Claudication, No Edema, No Palpitations Respiratory: No Cough, No Sputum, No Wheezing, No Smoke Exposure, No Dyspnea Gastrointestinal: No Nausea, No Vomiting, No Diarrhea, No Constipation, No Pain, No Heartburn, No Anorexia, No Dysphagia, No Hematochezia, No Melena, No Flatulence, No Jaundice Genitourinary: No Dysmenorrhea, No DUB, No Dyspareunia, No Dysuria, No Urinary Frequency, No Hematuria, No Urinary Incontinence, No Urgency, No Flank Pain, No Urinary Flow Changes, No Hesitancy Musculoskeletal: No Arthralgias, No Myalgias, No Joint Swelling, No Joint Stiffness, No Back Pain, No Neck Pain, No Injury History Skin: No Skin Lesions, No Pruritis, No Hair Changes, No Breast/Skin Changes, No Nipple Discharge Neuro: No Weakness, No Numbness, No Paresthesias, No Loss of Consciousness, No Syncope, No Dizziness, No Headache, No Coordination Changes, No Recent Falls Psych: No Anxiety/Panic, No Depression, No Insomnia, No Personality Changes, No Delusions, No Rumination, No SI/HI/AH/VH, No Social Issues, No Memory Changes, No Violence/Abuse Hx., No Eating Concerns Heme/Lymph: No Bruising, No Bleeding, No Transfusions History, No Lymphadenopathy Endocrine: No Polyuria, No Polydipsia, No Temperature Intolerance Physical exam (Primary Care) Vital Signs: Last Vital Signs Temp 97.1 F 06/25/25 15:02 Pulse 83 06/25/25 15:02 BP 134/68 06/25/25 15:02 Pulse Ox 95 06/25/25 15:02 Oxygen Delivery Method Room Air 06/25/25 15:02 BMI result Body Mass Index 28.2 Tobacco/Smoking Status: Tobacco use Status Tobacco use date assessed 06/25/25 06/25/25 15:06 Patient Tobacco Use Status Former Tobacco user 06/25/25 15:06 Tobacco use type Cigarette 06/25/25 15:06 e-Cigarette/Vaping Use Never Used 06/25/25 15:06 Thrive Assessment: Date of Thrive Assessment Date Thrive assessed 05/19/25 06/25/25 15:06 Currently or been in a relationship where the following occur: I choose not to answer Const Other: Pertinent findings are in BOLD GENERAL APPEARANCE NAD, activity normal for age, well developed/ well nourished, no cyanosis, pallor, or diaphoresis. EYES lids/conjunctiva normal. EARS/NOSE/THROAT Mucous membranes moist, nares normal, lips/teeth normal uvula midline without oral pharyngeal erythema, exudate or swelling TMs normal bilaterally. No lymphangitis/lymphedema. HEAD/NECK normocephalic atraumatic, no facial trauma, neck is supple. RESPIRATORY respiratory effort normal, speaks in full sentences, no tripod position, no accessory muscle use. Lungs clear to auscultation without rhonchi, wheezes, rales CARDIAC Regular rate and rhythm, no edema. ABDOMINAL Soft, ND/NT. No evidence of fluid wave. No pulsatile masses on exam, rebound tenderness, Reed sign or pain over Mcburney's point. MUSCLES/EXTREMITIES No abnormal range of motion, no swelling. SKIN Warm, pink and dry. No rashes, dermatoses, petechiae or lesions. NEUROLOGICAL Speech is clear and appropriate. Normal level of consciousness. Gait and coordination are normal. 5/5 strength in all extremities. PSYCH Normal mood and affect. Judgement/competence is appropriate Coding Level of Care Code Est Pt Level 4 (45519) Diagnoses Diabetes E11.9 Dry mouth R68.2 Time Spent (min) 30 Assessment & Plan Assessment & Plan (1) Diabetes: Code(s): E11.9 - Type 2 diabetes mellitus without complications Category: Medical Plan: - Advised to reduce sugar intake to prevent worsening of neuropathy. - Referral to podiatry for annual foot examination. - Advised patient that her imbalance symptoms are most likely due to the neuropathy. - Continue with Gabapentin 100 mg at bedtime. (2) Dry mouth: Code(s): R68.2 - Dry mouth, unspecified Category: Medical Plan: Patient advised to increase her water intake. To take lasix as needed only (when she has lower extremity edema. Explained to the patient that her symptoms are most likely to lasix and not gabapentin. Plan I advised reducing sugar intake to help manage diabetic neuropathy and improve overall health. We also talked about the importance of regular hydration, especially when taking diuretics, to prevent dehydration. A referral to podiatry was made for an annual foot examination to monitor the effects of neuropathy. Orders: Referrals Podiatry Referral E11.9 - Type 2 diabetes mellitus without complications Medications: Discontinued gabapentin Discontinued Reason: Doctor's Order 100 mg PO BEDTIME 90 caps 1RF
[2025-06-25 15:02] VITALS: BP 134/68; PULSE 83; TEMP 36.2; O2SAT 95; BMI 28.2
--- OUTSIDE RECORDS SUMMARY | 2025-06-25 18:40 | XMS_ITS | Encounter Summary ---
Author Organization [facility] Address [address] [place] [address] Encounters * CPT with Medical instED at [employer] on 2025-06-24 { reasonForRequest : Pt's daughter reporting pain in both legs>feels as if she is getting poked in the leg>unable to sleep because of this pain in a few days> unable to walk , patientReports : , denies :[ Falls with head strike and LOC , Falls from a standing position, no LOC, patient is amnestic to the radha nt , Falls with isolated injury and deformity noted to limb , Falls with inabili ty to move post fall , Cool extremities after fall or injury , Weakness with fal l, able to move all extremities ], chiefComplaints : Extremity Pain , pmh : Hypertension, Diabetes Mellitus Type 2 , allergies : Motrin, Asp irin , otherAllergies :null, painAssessment : , visitOutcom e : , additionalComments : 75 y.o female complains of Extremity Pain\nPatient states symptoms started several days ago but yesterday was worse. She has pain in her right leg. Her right leg is currently not swollen at her baseline does take diuretic as needed. Pain is located in the front near the knee. Denies any falls or injury. able to bear weight but it hurts. Denies any bruising, warmth or redness. She has tried Tylenol and it works for a little bit but the pain comes back. denies any kidney issues and denies being on any blood thinners. requesting insted assessment. \nI provided information on the mobile health provider response time and advised the patient and/or caregiver to monitor reported signs and symptoms. I discussed the warning signs of when toseek emergency care. } Sent to a call for a pt complaining of leg pain. SC8 arrives on scene, pt is alert and oriented, airway is patent. Pt's primary language is English. Pt's family interprets during visit. Pt has history of Diabetes and neuropathy. Pt complains of worsening pain in right lower leg/foot x 2 weeks described as pins/needles. Pt states pain was at it's worst last night. Pt is prescribed Gabapentin 100mgat bedtime, but has not been taking it regularly due to pt stating she feels sensitive to meds, andfeeling very groggy the next day. Pt states she has been taking Tylenol 1gm once daily. Pt denies garcia, dizziness, cp, sob, n/v/d, abd pain, fever, or loc. BP:108/69, P:90, RR:18, SpO2:97% RA, T:98.3; Head: unremarkable; Lung sounds: clear bilaterally; Abdomen: soft, non- tender, no distention; Back: unremarkable; Extremities: bilateral pedal pulses: present, no peripheral edema noted. No signs of infection noted; (-)jaime's sign; Skin: pink, warm, dry; Family contacts pt's component assembler and speaks to triage nurse to explore possibility for medication change. [facility] consulted and pt is advised toincrease Tylenol 1gm TID. Family will continue to follow up with component assembler office for treatment plan. Red flags discussed. Pt has no further questions. IV_(FLUIDS_AND/OR_MEDICATION), MEDICATION_IM, ORAL_MEDICATION, WOUND_CARE, ORTHOSTATIC_VITAL_SIGNS Written by Medical instED on 2025-06-24
--- OUTSIDE RECORDS SUMMARY | 2025-06-25 18:40 | XMS_ITS | Data Portability ---
Author Organization [employer] [facility], [facility] Address [address] [place] [phone] Care Team Providers Care Lieutenant Shift Supervisor Name Role Phone HIM CCA OTHER Assessment Encounter Date Assessment Date Assessment LastModified by Organization Details LastModified Time 06/24/2025 06/24/2025 I have reviewed and agree with the assessment and plan as documented by the trout farmer. I provided real time medical direction for this encounter and was immediately available to provide additional phone based assistance as needed. History as noted by trout farmer. Pt with history of DM2, c/b peripheral neuropathy with pt reporting chronic lower extremity discomfort. Pt has been prescribed gabapentin 100mg at [facility] but she no longer takes it since she doesn't like the way it makes her feel. Pt is reporting several weeks of increased pins and needles discomfort in the RLE, which is her usual neuropathy pain, but worse. No trauma, fevers or chills. Pt is taking tylenol once daily with some temporary relief of the pain. On exam, vitals normal. Exam of the BLEs is also normal. Impression: Pt with increased peripheral neuropathy pain in her RLE, exam unremarkable, no e/o infection or acute vascular issue. Pt's family has already spoken with her safety lead's office and is arranging follow up visit since they had prescribed the gabapentin, which the pt discontinued d/t adverse effects. Pt is told to increase her tylenol from qd to tid which should give her more prolonged relief from the pain and to f/u with her safety lead to discuss other treatment options with them. Pt instructed to seek medical attention right away with any worsening or new symptoms, which are reviewed with her. btils Not available 06/24/2025 14:23:22 Plan of Treatment Reminders Order Date Submit Date Provider Last Modified By Organization Details Last Modified Time Details Appointments None record ed. Lab None record ed. Referral None record ed. Procedures None record ed. Surgeries None record ed. Imaging None record ed. Medication Orders None record ed. Patient TargetsNo targets recorded. Patient InstructionsNo instructions recorded. Reason for Referral None Reported. Medical Equipment None Reported. Allergies Allergen ID Allergen Name Allergen Category Reaction Reaction Severity Criticality Documentation Date Start Date Code Code System Note Provider Name and Address Organization Details Recorded Time 09922 Motrin medicatio n Not available Not available Not available 06/24/2025 33393 8 RxNorm Not Available [employer] - production 10:22:52 93924 aspirin medicatio n Not available Not available Not available 06/24/2025 1191 RxNorm Not Available [employer] - production 10:22:52 Medications Name Sig Start Date Stop Date Status Note LastModified by Organization Details LastModified Time furosemide 20 mg tablet TOME NAM TABLETA VIA ORAL CADA LOLI active Not Available Not Available No t Available Vitals Date Recorded Body weight Body temperature Respiratory rate Heart rate Body height Oxygen saturation Oxygen saturation in Arterial blood by Pulse oximetry Systolic And Diastolic Provider Name and Address Organization Details Last Updated DateTime 61857.0 88 g 98.3 [degF] 18 /min 90 /min 157.48 cm 97 % 97 % 108/69 mm[Hg] Not Available [employer] [facility] [employer] - production 12:30:33 Social History None recorded. Functional Status None recorded. Mental Status None recorded. Family History Nothing Reported. Medical History No medical history recorded. Gynecological HistoryNo gynecological history recorded. Obstetrics History GPAL:G 0 P 0 0 0 0 Past Encounters Encounter ID Performer Location Encounter Start Date Encounter Closed Date Diagnosis/Indication Diagnosis SNOMED-CT Code Diagnosis ICD10 Code Diagnosis IMO Codes Diagnosis Note [id number] Yahir Springer MD [facility] ED Medical [address] [phone] 06/24/2025 12:30:27 06/24/2025 14:57:53 Neuropathic pain 821523119 M79.2 711254 Health Concerns Section Related Observation LastModified by Organization Detai ls LastModified Time None Recorded Concern Status LastModified by Organization Details LastModified Time None Recorded Advance Directives Directive None Recorded Payers Insurance Date Sequence Insurance Name Policy Number Policy Santos Covered Member ID Santos Member ID Guarantor Name 06/24/2025 1 [facility] - DOS ON OR AFTER 2022 - DUAL ELIGIBLE - [employer] OPTIONS AND ONE CARE (MEDICARE REPLACEMENT/ADV ANTAGE - HMO) Anahy Hogan [id number] Anahy Hogan Notes Date Note Type Note Provider Name and Address Organization Details Recorded Time 06/24/2025 text/html ROS as noted in the HPI This was a supervised home visit with trout farmer Beulah Keen. CRC Nurse Triage Notes (Tatiana Brar): Reason For Request: Pt's daughter reporting pain in both legs>feels as if she is getting poked in the leg>unable to sleep because of this pain in a few days>unable to walkDenies: Falls with head strike and LOC Falls from a standing position, no LOC, patient is amnestic to the event Falls with isolated injury and deformity noted to limb Falls with inability to move post fall Cool extremities after fall or injury Weakness with fall, able to move all extremities Chief Complaints: Extremity PainPMH: Hypertension, Diabetes Mellitus Type 2PMH Reviewed at 06/24/2025 - :Allergies Reviewed at 06/24/2025 - :Comments: 75 y.o female complains of Extremity PainPatient states symptoms started several days ago but [...] being on any blood thinners. requesting insted assessment.I provided information on the mobile health provider response time and advised the patient and/or caregiver to monitor reported signs and symptoms. I discussed the warning signs of when to seek emergency care. ..................... ..................... ..................... ..................... ..................... ..................... ............... Grant Coordinator Note From Beulah Keen: Sent to a call for a pt complaining of leg pain. SC8 arrives on scene, pt is alert and oriented, airway is patent. Pt's primary language is Serbian. Pt's family interprets during visit. Pt has history of Diabetes and neuropathy. Pt complains of worsening pain in right lower leg/foot x 2 weeks described as pins/needles. Pt states pain was at it's worst last night. Pt is prescribed Gabapentin 100mg at bedtime, but has not been taking it regularly due to pt stating she feels sensitive to meds, and feeling very groggy the next day. Pt states she has been taking Tylenol 1gm once daily. Pt denies garcia, dizziness, cp, sob, n/v/d, abd pain, fever, or loc. BP:108/69, P:90, RR:18, SpO2:97% RA, T:98.3; Head: unremarkable; Lung sounds: clear bilaterally; Abdomen: soft, non-tender, no distention; Back: unremarkable; Extremities: bilateral pedal pulses: present, no peripheral edema noted. No signs of infection noted; (-)jaime's sign; Skin: pink, warm, dry; Family contacts pt's safety lead and speaks to triage nurse to explore possibility for medication change. [facility] consulted and pt is advised to increase Tylenol 1gm TID. Family will continue to follow up with safety lead office for treatment plan. Red flags discussed. Pt has no further questions. ..................... ..................... ..................... ..................... ..................... ..................... ............... [place] Consulted: Yahir Springer ..................... ..................... ..................... ..................... ..................... ..................... ............... Disposition: Fulfilled Yahir Springer MD [address] [facility] [facility] [facility], [place], [phone], [employer]A 06/24/2025 14:23:43 OBGyn Episode No OBEpisode recorded.
--- OUTSIDE RECORDS SUMMARY | 2025-06-25 18:40 | XMS_ITS | Clinical Summary ---
Author Organization [employer] [facility] ity Address [address] [place] [address] Care Team Providers Care Pulp Press Tender Name Role Phone Junior Zayas MD Primary Care Provider [phone] Social History Tobacco Use Types Packs/Day Years [...] age to complete this topic Care Teams Pulp Press Tender Relationship Specialty Start Date End Date Junior Zayas MD [address] [place] [address] [address] [facility] [place] [address] PCP - General 05/18/16
--- OUTSIDE RECORDS SUMMARY | 2025-06-25 18:40 | XMS_ITS | Continuity of Care Document ---
Author Name instED, Medical Address [address] [place] [id number] Organization Unknown Address [address] [place] [id number] Medications No known medications Problems No known problems
--- OUTSIDE RECORDS SUMMARY | 2025-06-25 18:40 | XMS_ITS | Continuity of Care Document ---
Author Organization [employer] [facility], [facility] Address [address] [place] [phone] Care Team Providers Care Vial Gauger Name Role Phone HIM CCA OTHER Assessment Encounter Date Assessment Date Assessment LastModified by Organization Details LastModified Time 06/24/2025 06/24/2025 I have reviewed and agree with the assessment and plan as documented by the house furnishings supervisor. I provided real time medical direction for this encounter and was immediately available to provide additional phone based assistance as needed. History as noted by house furnishings supervisor. Pt with history of DM2, c/b peripheral [...] Pt's family has already spoken with her ocean freight agent's office and is arranging follow up visit since they had prescribed the gabapentin, which the pt discontinued d/t adverse effects. Pt is told to increase her tylenol from qd to tid which should give her more prolonged relief from the pain and to f/u with her ocean freight agent to discuss other treatment options with them. [...] Name and Address Organization Details Recorded Time 89994 Motrin medicatio n Not available Not available Not available 06/24/202540668 8 RxNorm Not Available [employer] - production 10:22:52 66207 aspirin medicatio n Not available Not available Not available 06/24/2025 1191 RxNorm Not Available [employer] - production 10:22:52 Medications Name Sig Start [...] and Address Organization Details Last Updated DateTime 82461.0 88 g 98.3 [degF] 18 /min 90 /min 157.48 cm 97 % 97 % 108/69 mm[Hg] Not Available [employer] - production 12:30:33 Social History None recorded. Functional Status None recorded. Mental Status None recorded. Family History Nothing Reported. Medical History No medical history recorded. Gynecological HistoryNo gynecological history recorded. Obstetrics History GPAL:G 0 P 0 0 0 0 Past Encounters Encounter ID Performer Location Encounter Start Date Encounter Closed Date Diagnosis/Indication Diagnosis SNOMED-CT Code Diagnosis ICD10 Code Diagnosis IMO Codes Diagnosis Note [id number] Yahir Springer MD [facility] ED Medical [address] [address] 06/24/2025 12:30:27 06/24/2025 14:57:53 Neuropathic pain [id number] M79.2 656501 Health Concerns Section Related Observation LastModified by Organization Detai ls LastModified Time None Recorded Concern Status LastModified by Organization Details LastModified Time None Recorded Payers Encounter Date Sequence Insurance Name Policy Number Policy Santos Covered Member ID Santos Member ID Guarantor Name 06/24/2025 1 [facility] - DOS ON OR AFTER 2022 - DUAL ELIGIBLE - [employer] OPTIONS AND ONE CARE (MEDICARE REPLACEMENT/ADV ANTAGE - HMO) Anahy Hogan [id number] Anahy Hogan Notes Date Note Type Note Provider Name and Address Organization Details Recorded Time 06/24/2025 text/html ROS as noted in the HPI This was a supervised home visit with house furnishings supervisor Beulah Keen. CRC Nurse Triage Notes (Tatiana [...] ..................... ..................... ..................... ..................... ..................... ..................... ............... Manager Play Note From Beulah Keen: Sent to a call for a pt complaining of leg pain. SC8 arrives on scene, pt is alert and oriented, airway is patent. Pt's primary language is Mosotho. Pt's family interprets during visit. Pt has [...] Skin: pink, warm, dry; Family contacts pt's ocean freight agent and speaks to triage nurse to explore possibility for medication change. [facility] consulted and pt is advised to increase Tylenol 1gm TID. Family will continue to follow up with ocean freight agent office for treatment plan. Red flags discussed. Pt has no further questions. ..................... ..................... ..................... ..................... ..................... ..................... ............... [facility] Consulted: Yahir Springer ..................... ..................... ..................... ..................... ..................... ..................... ............... Disposition: Fulfilled Yahir Springer MD [address] [facility],[address] [facility], [place], [phone], TODD - ARABELLA RAPHAEL 06/24/2025 14:23:43 OBGyn Episode No OBEpisode recorded.
== END 2025-06-25 15:36 | disposition home or self-care (01) ==
LOC: HO.HMCH 14:48
PROVIDERS: PCP Internal Medicine; Visit Provider Internal Medicine
DX: E11.9 Type 2 diabetes mellitus without complications (principal); R68.2 Dry mouth, unspecified

== ENCOUNTER → 2025-06-25 14:47 | Outpatient (BNVA) | payer OTHER, SELFPAY | PROVIDERS: PCP Internal Medicine; Visit Provider Internal Medicine | DX: E11.40 Type 2 diabetes mellitus with diabetic neuropathy, unspecified (principal); R25.2 Cramp and spasm; R68.2 Dry mouth, unspecified | CPT/HCPCS: 99212 ==

== ENCOUNTER 2025-07-31 09:29 | Outpatient (AMB) | payer OTHER, SELFPAY ==
[2025-07-31 09:32] VITALS: BP 116/60; PULSE 93; O2SAT 98
--- NOTE | 2025-07-31 09:32 | A.OFFVIS_ITS ---
Vital Signs 07/31/25 09:32 Height 5 ft 2 in Weight 164 lb 3.91 oz BMI 30.0 BP 116/60 Blood Pressure Location Lt brachial Pulse 93 Pulse Source Pulse Oximeter Pulse Oximetry (%) 98 Oxygen Delivery Method Room Air Intake Visit Reasons: Asthma Physician Practice Administrator Required: Yes Physician Practice Administrator Services: Physician Practice Administrator Offered & Declined Physician Practice Administrator Name: MD speaks irish Allergies aspirin (Aspirin) Allergy (Mild, Verified 07/31/25 09:35) Abdominal Pain Penicillins Allergy (Mild, Verified 07/31/25 09:35) NAUSEA/STOMACH PAIN hydrochlorothiazide Allergy (Unknown, Verified 07/31/25 09:35) hypokalemia lisinopril Allergy (Unknown, Verified 07/31/25 09:35) ? swelling Cntxpea-WLP-VvO Reductase Inhibitor Allergy (Unknown, Verified 07/31/25 09:35) Muscle cramps amlodipine Adverse Reaction (Intermediate, Verified 07/31/25 09:35) leg swelling ibuprofen (From Motrin) Adverse Reaction (Unknown, Verified 07/31/25 09:35) Abdominal Pain HPI Comments Details: The patient is a 75 y/o woman with a history of asthma. She has been on Wixela and seems to be helpful. Back in the Fall she did go to the ED with a flare up. She is have a CXR that we reviewed with no acute disease. She was treated with prednisone at that time. She did have PFTs back in 2019, which demonstrated limited inspiratory flows at that time. The patient did have a CT scan of the chest that also reviewed back in 2016 that demonstrated a small hiatal hernia and also subcentimeter pulmonary nodules. The patient has not had any further imaging studies to review the pulmonary nodules at this time. 02/06/2024 the patient is here for a pulmonary follow-up visit. Overall the patient has been doing well. She has been using Wixela twice a day. She is finds it helpful. She is having some muscle spasms at nighttime. Is affecting her sleep. We did talk about this point decreasing the Wixela down to just in the morning to try to minimize on the potassium chest. The patient also can try some magnesium [id number] to see if this provides some relief. We did review her CT scan of the chest. Pulmonary nodules are stable. She has a small hiatal hernia that still stable as well. No further CAT scans are warranted. 07/31/2025 the patient is here for a pulmonary follow-up visit. The patient overall has been doing well. She still continues to have issues with muscle spasms and neuropathies. She has responded well to Neurontin. . Seems like the last time she had blood work to reassuring. The patient has Wixela. Mainly as needed. Has been complainng about back pain. More consitent with MS, but we will request a CXR at this time. If she develops any worsening symptoms she can always call for an earlier assessment. [facility] Medical History Type 2 diabetes mellitus with cardiac complication Allergy Diabetic neuropathy GERD (gastroesophageal reflux disease) Type 2 diabetes mellitus with hypoglycemia Pulmonary nodules Hiatal hernia Orthopnea Headache Fall NSTEMI (non-ST elevated myocardial infarction) Lower extremity edema HLD (hyperlipidemia) Colon cancer screening Urinary frequency Pleural effusion, right Nocturia more than twice per night Glaucoma Cataract of left eye Renal cyst Right shoulder pain Preop exam for internal medicine On beta kamryn at home Constipation Abdominal bloating Shoulder pain, right Hip pain, left Vitamin D deficiency Osteoporosis Restless leg syndrome Type 2 diabetes mellitus with diabetic polyneuropathy Nasal congestion Chest pain Tubal ligation evaluation Gastroparesis Adrenal adenoma Pulmonary nodule Fracture of toe of left foot Positive MAGGIE (antinuclear antibody) Osteoarthritis of both knees Osteopenia Ulnar neuropathy Asthma Obesity (BMI 30-39.9) Coronary artery disease Hypercholesterolemia Surgical History History of coronary artery stent placement Hx of right cataract extraction History of esophagogastroduodenoscopy (EGD) Hx of colonoscopy History of breast biopsy History of tubal ligation History of laparoscopic cholecystectomy Family History Mother HTN (hypertension) Diabetes Brother Lung cancer Sister Cancer, colon Daughter Uterine cancer Father Prostate cancer Social History Household Members: Spouse Household Members Other:: Granddaughter is WOOD ROUTER lives upstairs Housing: Other Housing Other:: m2 family house Are you a primary healthcare representative to a significant other at home: No Do you presently have visiting nurse or other home services: No Alcohol intake: never Patient Tobacco Use Status: Former Tobacco user Tobacco use type: Cigarette e-Cigarette/Vaping Use: Never Used Second Hand Smoke Exposure: Yes service: No Current occupational status: retired and disabled Cognitive needs: No Hearing needs: No Vision needs: Yes (glasses) Review of Systems Const Denies chills, Denies fatigue, Denies fever(s) and Denies weight gain ENT Denies dizziness Card Denies chest pain and Reports dyspnea on exertion Resp Reports cough, Reports dyspnea on exertion and Reports wheezing GI Denies hematochezia and Denies change in stool character Musc Denies abnormal gait, Denies muscle weakness, Denies numbness, Denies radiating pain into limb and Denies tingling Neuro Denies abnormal gait, Denies dizziness, Denies numbness and Denies tingling Endo Denies fatigue Aller/Immun Reports wheezing Physical Exam Vital Signs: Last Vital Signs Pulse 93 07/31/25 09:32 BP 116/60 07/31/25 09:32 Pulse Ox 98 07/31/25 09:32 Oxygen Delivery Method Room Air 07/31/25 09:32 BMI result Body Mass Index 30.0 Const General: healthy appearing, no acute distress and well developed Nutritional Appearance: well nourished Orientation/consciousness: patient oriented x3 Chest Chest palpation & inspection: normal inspection of the chest Resp Effort & Inspection: normal respiratory effort and no tracheal deviation Auscultation: diminished lung sounds Cardio Rate: regular rate Heart sounds: S1 normal heart sound present and S2 normal heart sound present GI Palpation (GI): Soft to palpation and nontender Skin General skin exam: turgor normal Neuro General: patient oriented x3 Extrem General: Yes no clubbing, cyanosis or edema Psych Appearance: grossly normal Mental Status: mental status grossly normal Immunizations pneumo 21-fauzia conj-dip crm(PF) 0.5 mL IM syringe Performing Provider: Anthony Vu MD Performing Location: [facility] [place] [place] Pulmonology Services Administered by: Roz Perez LPN on 07/31/25 09:57 Dose Route Admin Location Dispensed Lot Number Expiration Date [facility][NOTE 3] Life Skills Specialist 0.5 mL IM Left Deltoid 0.5 mL [id number] 05/21/26 4112-7538-60 [employer] D Total Dispensed Waste 0.5 mL 0 % VIS Given Date VIS Provided VIS Publication Date 07/31/25 Single Vaccine 25 Eligibility Eligibility Date Funding Source Not [facility] Eligible 07/31/25 Private Assessment & Plan Assessment & Plan (1) Asthma: Code(s): J45.909 - Unspecified asthma, uncomplicated Category: Medical Qualifiers: Asthma complication type: uncomplicated Asthma persistence: persistent Asthma severity: moderate Qualified Code(s): J45.40 - Moderate persistent asthma, uncomplicated (2) Hiatal hernia: Code(s): K44.9 - Diaphragmatic hernia without obstruction or gangrene Category: Medical (3) Pulmonary nodules: Code(s): R91.8 - Other nonspecific abnormal finding of lung field Category: Medical Plan conitnue Wixela Singlair PM reflux diet sleep with HOB elevated Low Sodium diet CXR CT chest with stable nodules, no further f/u is warranted F/U 6-8 months Orders: Orders XR chest 2V 07/31/25 R91.8 - Other nonspecific abnormal finding of lung field Pneumococcal 21 Immunization 07/31/25 Z23 - Encounter for immunization Coding Level of Care Code Est Pt Level 4 (43955) Diagnoses Moderate persistent asthma without complication J45.40 Asthma complication type: uncomplicated Asthma persistence: persistent Asthma severity: moderate Hiatal hernia K44.9 Pulmonary nodules R91.8 Time Spent (min) 16
--- OUTSIDE RECORDS SUMMARY | 2025-07-31 09:59 | XMS_ITS | Clinical Summary ---
Author Organization [facility] ity Address [address] [place] [address] Care Team Providers Care Commercial Installer Name Role Phone Junior Zayas MD Primary Care Provider [phone] Social History Tobacco Use Types Packs/Day Years [...] Depression Screening 09/10/2024 COVID-19 Vaccine ( - 2024-2 6 season) 2025 Influenza Vaccine (#1) 2025 HIB [...] to complete this topic Care Teams Commercial Installer Relationship Specialty Start Date End Date Junior Zayas MD [address] [place] [address] [address] [facility] [place] [address] PCP - General 05/18/16
--- OUTSIDE RECORDS SUMMARY | 2025-07-31 09:59 | XMS_ITS | Continuity of Care Document ---
Author Organization [facility] [facility], [facility] Address [address] [place] [phone] Care Team Providers Care Collar Setter Name Role Phone HIM CCA OTHER Assessment Encounter Date Assessment Date Assessment LastModified by Organization Details LastModified Time 06/24/2025 06/24/2025 I have reviewed and agree with the assessment and plan as documented by the soap boiler. I provided real time medical direction for this encounter and was immediately available to provide additional phone based assistance as needed. History as noted by soap boiler. Pt with history of DM2, c/b peripheral [...] Pt's family has already spoken with her gold tooler's office and is arranging follow up visit since they had prescribed the gabapentin, which the pt discontinued d/t adverse effects. Pt is told to increase her tylenol from qd to tid which should give her more prolonged relief from the pain and to f/u with her gold tooler to discuss other treatment options with them. [...] Name and Address Organization Details Recorded Time 88669 Motrin medicatio n Not available Not available Not available 06/24/202571681 8 RxNorm Not Available [employer] - production 10:22:52 99419 aspirin medicatio n Not available Not available Not available 06/24/2025 1191 RxNorm Not Available [employer] - production 10:22:52 Medications Name Sig Start Date Stop Date Status Note LastModified by Organization Details LastModified Time furosemide 20 mg tablet TOME NAM TABLETA VIA ORAL CADA LOLI active Not Available Not Available No t Available Vitals Date Recorded Body weight Body temperature Respiratory rate Heart rate Body height Oxygen saturation Systolic And Diastolic Provider Name and Address Organization Details Last Updated DateTime 89709.0 88 g 98.3 [degF] 18 /min 90 /min 157.48 cm 97 % 108/69 mm[Hg] Not Available [employer] 12:30:33 Social History None recorded. Functional Status None recorded. Mental Status None recorded. Family History Nothing Reported. Medical History No medical history recorded. Gynecological HistoryNo gynecological history recorded. Obstetrics History GPAL:G 0 P 0 0 0 0 Past Encounters Encounter ID Performer Location Encounter Start Date Encounter Closed Date Diagnosis/Indication Diagnosis SNOMED-CT Code Diagnosis ICD10 Code Diagnosis IMO Codes Diagnosis Note [id number] Yahir Springer MD [facility] ED Medical [address] [address] 06/24/2025 12:30:27 06/24/2025 14:57:53 Neuropathic pain 332461900 M79.2 [id number] Health Concerns Section Related Observation LastModified by Organization Detai ls LastModified Time None Recorded Concern Status LastModified by Organization Details LastModified Time None Recorded Payers Encounter Date Sequence Insurance Name Policy Number Policy Santos Covered Member ID Santos Member ID Guarantor Name 06/24/2025 1 [facility] - DOS ON OR AFTER 2022 - DUAL ELIGIBLE - CORRECTION OPTIONS AND ONE CARE (MEDICARE REPLACEMENT/ADV ANTAGE - HMO) Anahy Hogan [id number] Anahy Hogan Notes Date Note Type Note Provider Name and Address Organization Details Recorded Time 06/24/2025 text/html ROS as noted in the HPI This was a supervised home visit with soap boiler Beulah Keen. [facility] Nurse Triage Notes (Tatiana Brar): Reason For [...] Mellitus Type 2PMH Reviewed at 06/24/2025 - :22Allergies Reviewed at 06/24/2025 - :Comments: 75 y.o [...] ..................... ..................... ..................... ..................... ..................... ..................... ............... Dominatrix Note From Beulah Keen: Sent to a [...] Skin: pink, warm, dry; Family contacts pt's gold tooler and speaks to triage nurse to explore possibility for medication change. [facility] consulted and pt is advised to increase Tylenol 1gm TID. Family will continue to follow up with gold tooler office for treatment plan. Red flags discussed. Pt has no further questions. ..................... ..................... ..................... ..................... ..................... ..................... ............... [facility] Consulted: Yahir Springer ..................... ..................... ..................... ..................... ..................... ..................... ............... Disposition: Fulfilled Yahir Springer MD [address] [facility],[address], [place], [address], [employer] 06/24/2025 14:23:43 OBGyn Episode No OBEpisode recorded.
--- OUTSIDE RECORDS SUMMARY | 2025-07-31 09:59 | XMS_ITS | Data Portability ---
Author Organization [facility], [facility] Address [address] [place] [phone] Care Team Providers Care Ash Pit Worker Name Role Phone HIM CCA OTHER Assessment Encounter Date Assessment Date Assessment LastModified by Organization Details LastModified Time 06/24/2025 06/24/2025 I have reviewed and agree with the assessment and plan as documented by the delivery engineer. I provided real time medical direction for this encounter and was immediately available to provide additional phone based assistance as needed. History as noted by delivery engineer. Pt with history of DM2, c/b peripheral [...] Pt's family has already spoken with her camp counselor's office and is arranging follow up visit since they had prescribed the gabapentin, which the pt discontinued d/t adverse effects. Pt is told to increase her tylenol from qd to tid which should give her more prolonged relief from the pain and to f/u with her camp counselor to discuss other treatment options with them. [...] Name and Address Organization Details Recorded Time 35537 Motrin medicatio n Not available Not available Not available 06/24/2025 11361 8 RxNorm Not Available [email or web address] - production 10:22:52 37761 aspirin medicatio n Not available Not available Not available 06/24/2025 1191 RxNorm Not Available [email or web address] - production 10:22:52 Medications Name Sig Start [...] and Address Organization Details Last Updated DateTime 17556.0 88 g 98.3 [degF] 18 /min 90 /min 157.48 cm 97 % 108/69 mm[Hg] Not Available [email or web address] 12:30:33 Social History None recorded. Functional Status None recorded. Mental Status None recorded. Family History Nothing Reported. Medical History No medical history recorded. Gynecological HistoryNo gynecological history recorded. Obstetrics History GPAL:G 0 P 0 0 0 0 Past Encounters Encounter ID Performer Location Encounter Start Date Encounter Closed Date Diagnosis/Indication Diagnosis SNOMED-CT Code Diagnosis ICD10 Code Diagnosis IMO Codes Diagnosis Note [id number] Yahir Springer MD [facility] ED Medical [address] [address] 06/24/2025 12:30:27 06/24/2025 14:57:53 Neuropathic pain 485732246 M79.2 458033 Health Concerns Section Related Observation LastModified by Organization Detai ls LastModified Time None Recorded Concern Status LastModified by Organization Details LastModified Time None Recorded Advance Directives Directive None Recorded Payers Insurance Date Sequence Insurance Name Policy Number Policy Santos Covered Member ID Santos Member ID Guarantor Name 06/24/2025 1 [facility] - DOS ON OR AFTER 2022 - DUAL ELIGIBLE - RESIDENTIAL OPTIONS AND ONE CARE (MEDICARE REPLACEMENT/ADV ANTAGE - HMO) Anahy Hogan [id number] Anahy Hogan Notes Date Note Type Note Provider Name and Address Organization Details Recorded Time 06/24/2025 text/html ROS as noted in the HPI This was a supervised home visit with delivery engineer Beulah Keen. [facility] Nurse Triage Notes (Tatiana Brar): Reason For [...] Reviewed at 06/24/2025 - :22Allergies Reviewed at 06/24/2025:Comments: 75 y.o female complains of Extremity PainPatient [...] ..................... ..................... ..................... ..................... ..................... ..................... ............... Set Up Inspector Note From Beulah Keen: Sent to a call for a pt complaining of leg pain. SC8 arrives on scene, pt is alert and oriented, airway is patent. Pt's primary language is Swedish. Pt's family interprets during visit. Pt has [...] Skin: pink, warm, dry; Family contacts pt's camp counselor and speaks to triage nurse to explore possibility for medication change. [facility] consulted and pt is advised to increase Tylenol 1gm TID. Family will continue to follow up with camp counselor office for treatment plan. Red flags discussed. Pt has no further questions. ..................... ..................... ..................... ..................... ..................... ..................... ............... [facility] Consulted: Yahir Springer ..................... ..................... ..................... ..................... ..................... ..................... ............... Disposition: Fulfilled Yahir Springer MD [address] [facility],[address], [place], [address], [email or web address] 06/24/2025 14:23:43 OBGyn Episode No OBEpisode recorded.
== END 2025-07-31 09:56 | disposition home or self-care (01) ==
LOC: HO.HPS 09:30
PROVIDERS: PCP Internal Medicine; Visit Provider Hospitalist
DX: Z23 Encounter for immunization (principal)
CPT/HCPCS: 99214

== ENCOUNTER → 2025-07-31 09:29 | Outpatient (BNVA) | payer OTHER, SELFPAY | PROVIDERS: PCP Internal Medicine; Visit Provider Hospitalist | DX: J45.40 Moderate persistent asthma, uncomplicated (principal); J44.9 Chronic obstructive pulmonary disease, unspecified; R91.8 Other nonspecific abnormal finding of lung field; Z23 Encounter for immunization; Z87.891 Personal history of nicotine dependence | CPT/HCPCS: 90471; 90684; 99212 ==

== ENCOUNTER 2025-08-04 11:52 | Outpatient (AMB) | payer OTHER, SELFPAY ==
--- OUTSIDE RECORDS SUMMARY | 2014-01-05 05:31 | XMS_ITS | Continuity of Care Document ---
Author Organization [facility] Address [address] [address] Phone Care Team Providers Care Print Line Supervisor Name Role Phone [place] Amy KNIGHT Unavailable Unavailable Advance Directives Directive Yes / No Effective Date File Name No Information Encounters Encounter Description Practice Location Reason(s) For Visit Diagnoses Date Provider [facility], [address] [address], [place], [place], [id number], tel:[phone] No Information 2013 [place] Amy. [address] [place], [address]. tel:[phone] Family History Family Member Type Diagnosis Age At Onset No Information Payers Payer name Insurance type Covered democrat ID Authoriza tion(s) No Information Social History Type Description Quantity Date Captured Comments Sex Female Smoking Status No Information Chief Complaint And Reason For Visit No Information History Of Present Illness Encounter Date Complaint History Of Prese nt Illness No Information Instructions Date Instruction Additional Infor mation No Information Assessments Type Assessment Date No Information
[2025-08-04 12:06] VITALS: BP 144/78; PULSE 82; O2SAT 96
--- NOTE | 2025-08-04 12:06 | MHC.OFFVIS ---
Vital Signs 08/04/25 12:06 Height 5 ft 2 in Weight 164 lb BMI 30.0 BP 144/78 H Blood Pressure Location Rt brachial Position Sitting Pulse 82 Pulse Source Pulse Oximeter Pulse Oximetry (%) 96 Oxygen Delivery Method Room Air Intake Visit Reasons: GERD, 3 Month f/u Intake Note: Est pt for mgmt of GERD w/ abd pain. CC: Pt denies any GI concerns or sx at this time. Confirms she is taking her current Rx as instructed and w/o complication. Salesperson Yard Goods Required: Yes Salesperson Yard Goods Services: Salesperson Yard Goods Offered & Declined Accompanied by: Daughter Allergies aspirin (Aspirin) Allergy (Mild, Verified 08/04/25 12:10) Abdominal Pain Penicillins Allergy (Mild, Verified 08/04/25 12:10) NAUSEA/STOMACH PAIN hydrochlorothiazide Allergy (Unknown, Verified 08/04/25 12:10) hypokalemia lisinopril Allergy (Unknown, Verified 08/04/25 12:10) ? swelling Muimnxr-FHD-PiU Reductase Inhibitor Allergy (Unknown, Verified 08/04/25 12:10) Muscle cramps amlodipine Adverse Reaction (Intermediate, Verified 08/04/25 12:10) leg swelling ibuprofen (From Motrin) Adverse Reaction (Unknown, Verified 08/04/25 12:10) Abdominal Pain HPI HPI GERD, 3 Month f/u: Details: LAST VISIT: Left wrist pain Anemia GERD (gastroesophageal reflux disease) Screen for colon cancer Plan Will change pantoprazole to once a day. Avoid dietary triggers family and snacking. Patient is on Mounjaro which probably contributing to her having mild gastroparesis.. Patient was encouraged to eat smaller meals more often. Reports occasional white phlegm coming out without nausea or vomiting. For the most part patient reports that her reflux is controlled. Patient reports that she is moving her bowels without any issues. Patient is complaining of left wrist pain, seen PCP last month, referral was not sent. Will send a referral for patient. Patient will follow-up in the office in 3 months. I will send her for blood work. Patient is agreeable to plan of care and verbalizes understanding of instructions. She was given the opportunity to ask questions and all questions answered. ? Thank you for allowing me to participate in her care Orders Comprehensive Met. Panel 11/20/24 K21.9 Referrals Orthopedics Referral [id number] Changed Changed From pantoprazole 40 mg PO BID 56 tabs 0RF Changed To pantoprazole 40 mg PO DAILY 90 tabs 2RF TODAY'S VISIT Patient is here today for follow-up. Patient reports that she has been doing fairly well. Patient is here accompanied by her daughter. She is taking pantoprazole daily in symptoms have been controlled. Patient denies dyspepsia, dysphagia or odynophagia. Patient however reports that she might have trouble with constipation. Not always feels like she is emptying her will bowel when having a bowel movement. Currently she is not taking any laxatives. Patient denies melena, hematochezia, unintentional weight loss or ribbon like stools. Patient denies any abdominal pain or discomfort. Occasional cramping before bowel movement. Patient is on Mounjaro. [facility] Medical History Type 2 diabetes mellitus with cardiac complication Allergy Diabetic neuropathy GERD (gastroesophageal reflux disease) Type 2 diabetes mellitus with hypoglycemia Pulmonary nodules Hiatal hernia Orthopnea Headache Fall NSTEMI (non-ST elevated myocardial infarction) Lower extremity edema HLD (hyperlipidemia) Colon cancer screening Urinary frequency Pleural effusion, right Nocturia more than twice per night Glaucoma Cataract of left eye Renal cyst Right shoulder pain Preop exam for internal medicine On beta kamryn at home Constipation Abdominal bloating Shoulder pain, right Hip pain, left Vitamin D deficiency Osteoporosis Restless leg syndrome Type 2 diabetes mellitus with diabetic polyneuropathy Nasal congestion Chest pain Tubal ligation evaluation Gastroparesis Adrenal adenoma Pulmonary nodule Fracture of toe of left foot Positive MAGGIE (antinuclear antibody) Osteoarthritis of both knees Osteopenia Ulnar neuropathy Asthma Obesity (BMI 30-39.9) Coronary artery disease Hypercholesterolemia Surgical History History of coronary artery stent placement Hx of right cataract extraction History of esophagogastroduodenoscopy (EGD) Hx of colonoscopy History of breast biopsy History of tubal ligation History of laparoscopic cholecystectomy Family History Mother HTN (hypertension) Diabetes Brother Lung cancer Sister Cancer, colon Daughter Uterine cancer Father Prostate cancer Social History Household Members: Spouse Household Members Other:: Granddaughter is SUPERVISOR TYPESETTING lives upstairs Housing: Other Housing Other:: m2 family house Are you a primary child adolescent care to a significant other at home: No Do you presently have visiting nurse or other home services: No Alcohol intake: never Patient Tobacco Use Status: Former Tobacco user Tobacco use type: Cigarette e-Cigarette/Vaping Use: Never Used Second Hand Smoke Exposure: Yes service: No Current occupational status: retired and disabled Cognitive needs: No Hearing needs: No Vision needs: Yes (glasses) Review of Systems Const Denies weight gain and Denies weight loss ENT Reports no additional complaints, Denies dysphagia and Denies odynophagia Card Reports no additional complaints Resp Reports no additional complaints GI Denies abdominal pain, Denies belching, Denies melena, Denies bloating, Denies change in bowel habits, Denies dysphagia, Denies excessive flatus, Denies dyspepsia, Reports heartburn, Denies diarrhea, Denies loose stools, Reports nausea, Denies odynophagia and Denies vomiting Reports no additional complaints Musc Reports no additional complaints Neuro Reports no additional complaints Psych Reports no additional complaints Endo Reports no additional complaints Physical Exam Vital Signs: Last Vital Signs Pulse 82 08/04/25 12:06 BP 144/78 H 08/04/25 12:06 Pulse Ox 96 08/04/25 12:06 Oxygen Delivery Method Room Air 08/04/25 12:06 BMI result Body Mass Index 30.0 Const General: healthy appearing and no acute distress Nutritional Appearance: obese Orientation/consciousness: patient oriented x3 Resp Effort & Inspection: normal respiratory effort, able to speak in complete sentences, no tracheal deviation and symmetric chest movement Auscultation: clear to auscultation bilaterally Cardio Rate: regular rate GI Inspection: Yes normal to inspection, No distended and Yes obesity Palpation (GI): Soft to palpation, not firm, nontender and No hepatosplenomegaly present Auscultation: normal bowel sounds General: Yes no CVA tenderness Back/Spine/Pelvis Back: no CVA tenderness Skin General skin exam: elasticity normal, turgor normal and dry skin Neuro General: patient oriented x3 Psych Appearance: grossly normal Mental Status: mental status grossly normal Assessment & Plan Assessment & Plan (1) Anemia: Code(s): D64.9 - Anemia, unspecified Category: Medical Qualifiers: Anemia type: unspecified type Qualified Code(s): D64.9 - Anemia, unspecified (2) GERD (gastroesophageal reflux disease): Code(s): K21.9 - Gastro-esophageal reflux disease without esophagitis Category: Medical Qualifiers: Esophagitis presence: without esophagitis Qualified Code(s): K21.9 - Gastro-esophageal reflux disease without esophagitis (3) Constipation: Code(s): K59.00 - Constipation, unspecified Qualifiers: Constipation type: slow transit constipation Qualified Code(s): K59.01 - Slow transit constipation Plan Patient will continue taking pantoprazole daily. Avoid dietary triggers and late night snacking. Staying upright for minimum 3 hours after meals discussed with patient. Patient will increase fluid intake and activity to promote bowel motility. Patient can take MiraLax daily. Increase fiber. May take fiber with pre and probiotics. Follow-up in the office in 3-4 months. Patient is agreeable to current plan of care and verbalizes understanding of instructions. She was given the opportunity to ask questions and all questions answered. Thank you for allowing me participate in her care Medications: New polyethylene glycol 3350 (Miralax) 17 grams PO DAILY 510 grams 2RF Refilled pantoprazole 40 mg PO DAILY 90 tabs 3RF Coding Level of Care Code Est Pt Level 3 (58477) Diagnoses Anemia D64.9 Anemia type: unspecified type Gastroesophageal reflux disease without esophagitis K21.9 Esophagitis presence: without esophagitis Slow transit constipation K59.01 Constipation type: slow transit constipation Time Spent (min) 25 Comment 15 minutes spent with patient and additional 10 minutes spent reviewing her records
== END 2025-08-04 12:46 | disposition home or self-care (01) ==
LOC: HO.HGI 11:53
PROVIDERS: PCP Internal Medicine; Visit Provider Nurse Practitioner Family
DX: D64.9 Anemia, unspecified (principal); K21.9 Gastro-esophageal reflux disease without esophagitis; K59.01 Slow transit constipation
CPT/HCPCS: 99213

== ENCOUNTER → 2025-08-04 11:52 | Outpatient (BNVA) | payer OTHER, SELFPAY | PROVIDERS: PCP Internal Medicine; Visit Provider Nurse Practitioner Family | DX: K21.9 Gastro-esophageal reflux disease without esophagitis (principal); K59.01 Slow transit constipation; D64.9 Anemia, unspecified; Z79.899 Other long term (current) drug therapy | CPT/HCPCS: 99212 ==

== ENCOUNTER 2025-08-11 10:33 | Outpatient (AMB) | payer OTHER, SELFPAY ==
[2025-08-11 10:35] VITALS: BP 118/72; PULSE 88; O2SAT 98; BMI 30.3
--- NOTE | 2025-08-11 10:35 | A.OFFVIS_ITS ---
Vital Signs 08/11/25 10:35 Height 5 ft 2 in Weight 165 lb 12.602 oz BMI 30.3 BP 118/72 Blood Pressure Location Lt brachial Position Sitting Pulse 88 Pulse Source Pulse Oximeter Pulse Oximetry (%) 98 Oxygen Delivery Method Room Air Intake Visit Reasons: Type II Diabetes Intake Note: Patient present today for Type 2 Diabetes Mellitus Last Diabetic eye exam: April at [facility] Last Podiatry Visit: Does not have hims manager Random Glucose: 209 mg/dl HgA1C: 7.2% Loft Rigger Required: Yes Loft Rigger Language: Presidential Helicopter Crew Chief Services: Loft Rigger Present Loft Rigger Name: Red [id number] Information Interpreted: non-clinical & clinical Accompanied by: Daughter Allergies aspirin (Aspirin) Allergy (Mild, Verified 08/11/25 10:40) Abdominal Pain Penicillins Allergy (Mild, Verified 08/11/25 10:40) NAUSEA/STOMACH PAIN hydrochlorothiazide Allergy (Unknown, Verified 08/11/25 10:40) hypokalemia lisinopril Allergy (Unknown, Verified 08/11/25 10:40) ? swelling Hmfpdtq-PNK-CqN Reductase Inhibitor Allergy (Unknown, Verified 08/11/25 10:40) Muscle cramps amlodipine Adverse Reaction (Intermediate, Verified 08/11/25 10:40) leg swelling ibuprofen (From Motrin) Adverse Reaction (Unknown, Verified 08/11/25 10:40) Abdominal Pain HPI Comments Details: This is a 75-year-old female with a past medical history of coronary artery disease, type 2 diabetes, hyperlipidemia, osteopenia, adrenal adenoma, osteoporosis and hypertension presenting for diabetic management. Her daughter, Roya, is here. Salvadorean video x ray equipment tester used. She received the deisi 3+. She tried placing 4 of them, but she kept getting a sensor error. A1c 7.2% today. Reviewed glucometer download In range 62% Highest 314 Lowest 102 1.7 readings per day She experiences some hyperglycemia in the afternoon and evening. Average fasting reading is 136. Current medications: Metformin ER to 1000 mg qam (higher dose caused diarrhea) Tresiba 14 units nightly Mounjaro 15 mg weekly. Past medication: Lantus switch to Tresiba due to hypoglycemia Compliance issues: She is taking her medications. Hypoglycemia symptoms: None Hyperglycemia symptoms: none Eye exam: [facility] Microvascular complications: OU retinopathy, neuropathy treated with gabapentin Macrovascular complications: CAD Hypertension: Patient is on an Arb. Hyperlipidemia: treated with Rosuvastatin 20 mg. ROS: Constitutional: No unexplained weight loss, fever, chills, fatigue. Eyes: No vision change Gastrointestinal: No anorexia, nausea, vomiting or diarrhea. No abdominal pain Skin: No open wounds or rashes. see HPI Physical exam: Constitutional: Alert, in no distress. Neck: Supple, Full range of motion. No lymphadenopathy. No palpable thyroid masses. Respiratory: Clear to auscultation. Cardiovascular: S1 S2 regular. No murmurs. [facility] Medical History Type 2 diabetes mellitus with cardiac complication Allergy Diabetic neuropathy GERD (gastroesophageal reflux disease) Type 2 diabetes mellitus with hypoglycemia Pulmonary nodules Hiatal hernia Orthopnea Headache Fall NSTEMI (non-ST elevated myocardial infarction) Lower extremity edema HLD (hyperlipidemia) Colon cancer screening Urinary frequency Pleural effusion, right Nocturia more than twice per night Glaucoma Cataract of left eye Renal cyst Right shoulder pain Preop exam for internal medicine On beta kamryn at home Constipation Abdominal bloating Shoulder pain, right Hip pain, left Vitamin D deficiency Osteoporosis Restless leg syndrome Type 2 diabetes mellitus with diabetic polyneuropathy Nasal congestion Chest pain Tubal ligation evaluation Gastroparesis Adrenal adenoma Pulmonary nodule Fracture of toe of left foot Positive MAGGIE (antinuclear antibody) Osteoarthritis of both knees Osteopenia Ulnar neuropathy Asthma Obesity (BMI 30-39.9) Coronary artery disease Hypercholesterolemia Surgical History History of coronary artery stent placement Hx of right cataract extraction History of esophagogastroduodenoscopy (EGD) Hx of colonoscopy History of breast biopsy History of tubal ligation History of laparoscopic cholecystectomy Family History Mother HTN (hypertension) Diabetes Brother Lung cancer Sister Cancer, colon Daughter Uterine cancer Father Prostate cancer Social History Household Members: Spouse Household Members Other:: Granddaughter is BROKE BEATER lives upstairs Housing: Other Housing Other:: m2 family house Are you a primary home care physical therapist to a significant other at home: No Do you presently have visiting nurse or other home services: No Alcohol intake: never Patient Tobacco Use Status: Former Tobacco user Tobacco use type: Cigarette e-Cigarette/Vaping Use: Never Used Second Hand Smoke Exposure: Yes service: No Current occupational status: retired and disabled Cognitive needs: No Hearing needs: No Vision needs: Yes (glasses) Physical Exam Vital Signs: Last Vital Signs Pulse 88 08/11/25 10:35 BP 118/72 08/11/25 10:35 Pulse Ox 98 08/11/25 10:35 Oxygen Delivery Method Room Air 08/11/25 10:35 BMI result Body Mass Index 30.3 Results AMB Hemoglobin A1c AMB Hemoglobin A1c 7.2 % Last Edit by NGUYEN Wylie on 08/11/25 10:52 Results Reviewed Results Reviewed: Laboratory Last Values Glucose (Clinic) 209 mg/dL (60-115) H 08/11/25 10:42 Laboratory Tests 02/20/25 02/20/25 05/13/25 07:30 08:00 09:14 Creatinine 0.66 Estimated GFR > 60 Hgb A1c (Clinic) AST 23 ALT 19 Triglycerides 65 Cholesterol 129 LDL Cholesterol, Calc 63 HDL Cholesterol 53 TSH 2.99 Urine Creatinine 193.95 Urine Microalbumin 33.0 Microalb/Creat Ratio 17.0 08/11/25 10:46 Creatinine Estimated GFR Hgb A1c (Clinic) 7.2 H AST ALT Triglycerides Cholesterol LDL Cholesterol, Calc HDL Cholesterol TSH Urine Creatinine Urine Microalbumin Microalb/Creat Ratio Assessment & Plan Assessment & Plan (1) Type 2 diabetes mellitus with cardiac complication: Code(s): E11.59 - Type 2 diabetes mellitus with other circulatory complications Category: Medical (2) Hypertension: Code(s): I10 - Essential (primary) hypertension Category: Medical Qualifiers: Hypertension type: primary hypertension Qualified Code(s): I10 - Essential (primary) hypertension (3) Hypercholesterolemia: Code(s): E78.00 - Pure hypercholesterolemia, unspecified Category: Medical Plan In summary this is a 75-year-old female with suboptimally controlled type 2 piedad betes. Discussed pathophysiology of Type II Diabetes Mellitus with the patient in detail.? I explained the assisted risks and complications associated with uncontrolled diabetes including nephropathy, neuropathy, peripheral vascular disease, retinopathy, increased risk of heart disease and stroke.? We discussed addition of SGLT2. Patient wants to try lifestyle modifications by decreasing carbohydrates she consumes during the day 1st. She also has not been using Deisi 3+ due to sensor error. Advised patient to charge the reader and bring sensor in and meet with tobacco prevention health educator for training. Patient agreeable to plan. Continue metformin extended release 1000 mg daily (higher dosage caused diarrhea). Continue Tresiba 14 units daily. Continue Mounjaro to 15 mg weekly. Reviewed treatment of hypoglycemia. Continue losartan, metoprolol for hypertension. Continue rosuvastatin for hyperlipidemia. LDL target less than 70. Follow up in 6 weeks for type 2 diabetes. Orders: Orders AMB Hemoglobin A1c Today E11.59 - Type 2 diabetes mellitus with other circulatory complications, Z13.9 - Encounter for screening, unspecified Referrals Diabetes Education Referral E11.65 - Type 2 diabetes mellitus with hypergl ycemia Patient Instructions: Call [employer] to confirm delivery for sensors ? \ Coding Level of Care Code Est Pt Level 4 (99649) Complex visit Add On G2211 Diagnoses Type 2 diabetes mellitus with cardiac complication E11.59 Primary hypertension I10 Hypertension type: primary hypertension Hypercholesterolemia E78.00
[2025-08-11 10:46] LABS: Glucose, Whole Blood 209 mg/dL (60-115)
--- OUTSIDE RECORDS SUMMARY | 2025-08-11 12:17 | XMS_ITS | Clinical Summary ---
Author Organization Healthcare IT [facility] ity Address [address] [place] [address] Care Team Providers Care Retinal Surgeon Name Role Phone Junior Zayas MD Primary Care Provider [phone] Social History Tobacco Use Types Packs/Day Years [...] age to complete this topic Care Teams Retinal Surgeon Relationship Specialty Start Date End Date Junior Zayas MD [address] [place] [address] [address] [facility] [place] [address] PCP - General 05/18/16
== END 2025-08-11 11:07 | disposition home or self-care (01) ==
LOC: HO.ENCR 10:34
PROVIDERS: PCP Internal Medicine; Visit Provider Physician Assistant Medical
DX: E11.59 Type 2 diabetes mellitus with other circulatory complications (principal); I10 Essential (primary) hypertension; E78.00 Pure hypercholesterolemia, unspecified; Z13.9 Encounter for screening, unspecified

== ENCOUNTER → 2025-08-11 10:33 | Outpatient (BNVA) | payer OTHER, SELFPAY | PROVIDERS: PCP Internal Medicine; Visit Provider Physician Assistant Medical | DX: E11.59 Type 2 diabetes mellitus with other circulatory complications (principal); I10 Essential (primary) hypertension; E78.00 Pure hypercholesterolemia, unspecified | CPT/HCPCS: 82947; 83036; 99212 ==

== ENCOUNTER 2025-08-18 08:57 | Outpatient (AMB) | payer OTHER, SELFPAY ==
--- NOTE | 2025-08-18 09:22 | MHC.AMDMED ---
Intake Intake Visit Reasons: Type 2 diabetes mellitus with hyperglycemia Sulfuric Acid Plant Supervisor Required: Yes Sulfuric Acid Plant Supervisor Language: German Professor Name: [facility] Accompanied by: Daughter Allergies aspirin (Aspirin) Allergy (Mild, Verified 08/11/25 10:40) Abdominal Pain Penicillins Allergy (Mild, Verified 08/11/25 10:40) NAUSEA/STOMACH PAIN hydrochlorothiazide Allergy (Unknown, Verified 08/11/25 10:40) hypokalemia lisinopril Allergy (Unknown, Verified 08/11/25 10:40) ? swelling Ytwlrui-XIW-GzP Reductase Inhibitor Allergy (Unknown, Verified 08/11/25 10:40) Muscle cramps amlodipine Adverse Reaction (Intermediate, Verified 08/11/25 10:40) leg swelling ibuprofen (From Motrin) Adverse Reaction (Unknown, Verified 08/11/25 10:40) Abdominal Pain PFSH Medical History Type 2 diabetes mellitus with cardiac complication Allergy Diabetic neuropathy GERD (gastroesophageal reflux disease) Type 2 diabetes mellitus with hypoglycemia Pulmonary nodules Hiatal hernia Orthopnea Headache Fall NSTEMI (non-ST elevated myocardial infarction) Lower extremity edema HLD (hyperlipidemia) Colon cancer screening Urinary frequency Pleural effusion, right Nocturia more than twice per night Glaucoma Cataract of left eye Renal cyst Right shoulder pain Preop exam for internal medicine On beta kamryn at home Constipation Abdominal bloating Shoulder pain, right Hip pain, left Vitamin D deficiency Osteoporosis Restless leg syndrome Type 2 diabetes mellitus with diabetic polyneuropathy Nasal congestion Chest pain Tubal ligation evaluation Gastroparesis Adrenal adenoma Pulmonary nodule Fracture of toe of left foot Positive MAGGIE (antinuclear antibody) Osteoarthritis of both knees Osteopenia Ulnar neuropathy Asthma Obesity (BMI 30-39.9) Coronary artery disease Hypercholesterolemia Surgical History History of coronary artery stent placement Hx of right cataract extraction History of esophagogastroduodenoscopy (EGD) Hx of colonoscopy History of breast biopsy History of tubal ligation History of laparoscopic cholecystectomy Family History Mother HTN (hypertension) Diabetes Brother Lung cancer Sister Cancer, colon Daughter Uterine cancer Father Prostate cancer Social History Household Members: Spouse Household Members Other:: Granddaughter is DIE FINISHER lives upstairs Housing: Other Housing Other:: m2 family house Are you a primary ambulatory care coordinator to a significant other at home: No Do you presently have visiting nurse or other home services: No Alcohol intake: never Patient Tobacco Use Status: Former Tobacco user Tobacco use type: Cigarette e-Cigarette/Vaping Use: Never Used Second Hand Smoke Exposure: Yes service: No Current occupational status: retired and disabled Cognitive needs: No Hearing needs: No Vision needs: Yes (glasses) Assessment & Plan Assessment & Plan (1) Type 2 diabetes mellitus with hypoglycemia: Code(s): E11.649 - Type 2 diabetes mellitus with hypoglycemia without coma Qualifiers: Diabetes mellitus intermission coordinator insulin use: with retirement use Diabetes mellitus complication detail: without coma Qualified Code(s): E11.649 - Type 2 diabetes mellitus with hypoglycemia without coma; Z79.4 - terminal manager (current) use of insulin Plan: Patient at visit to set up an insert Samir 3+ with reader Patient and her daughter report that they have use 3 Samir 3+ sensors that have all given error messages. At today's visit showed the daughter how to find serial number in the reader for defective sensors, recommended she call for replacements. Instructed Pt on what CGM can and can't do CGM Can: Give Pt minute by minute reading of glucose levels Displays glucose trend arrows that represents the direction glucose levels are fluctuating Give insight on decisions about how to dose insulin CGM cannot: Improve glucose control on its own Completely eliminate the need for all finger sticks Make dosing decision for you CGM is the reading of glucose in the interstitial fluid not actual blood glucose, finger sticks are still necessary when Pt's symptom?s do not match sensor reading and if sensors prompts Pt to do a fingerstick Instructed patient sensors water proof you can shower, or swim do not submerge sensor in water for over 30 minutes Is sensor falls off cannot put back in you need to replace sensor, customer service number given to patient for sensor replacement Sample Sensor placed on the right arm Patient left visit with sensor in warmup Patient given additional sample sensor in case of issue with current sensor Instructed patient and her daughter if after the 60 minute warmup. They get an error message most likely they will need a new Samir 3+ reader Reviewed how to interpret trend arrows Discussed lag time between finger stick and sensor data.? Instructed patient the importance of having blood glucometer for backup testing if needed Reviewed delay of CGM from fingersticks Reminded Pt that if symptoms do not match sensor still needs to check fingersticks. Patient will follow-up in 3 weeks Portions of this note were created using voice recognition software, please excuse any words or phrases that may have been misinterpreted. Patient Instructions: Instrucciones para el paciente: CGM proporciona informaci?n sobre el control de la glucosa en adi a lo jazmine del d?a, incluidas la hiperglucemia y la hipoglucemia. Contin?e controlando la glucosa en adi seg?n las instrucciones. Siga las pautas de nutrici?n proporcionadas. Informe cualquier molestia de inmediato al proveedor de atenci?n m?dica. Mantente malka hidratado. Puede ba?arse, ducharse, nadar y hacer ejercicio mientras usa el sensor de glucosa. No sumerja el sensor de glucosa en agua clay m?s de 30 minutos. Retire el sensor para doretha resonancia magn?boogie o doretha tomograf?a computarizada. Evite la m?quina de blaine X en los aeropuertos: retire el sensor o solicite la varita Coding Level of Care Code Est Pt Level 1 (94272) Diagnoses Type 2 diabetes mellitus with hypoglycemia without coma, with long-term current use of insulin E11.649; Z79.4 Diabetes mellitus intermission coordinator insulin use: with intermission coordinator use Diabetes mellitus complication detail: without coma
== END 2025-08-18 09:24 | disposition home or self-care (01) ==
LOC: HO.ENCR 08:58
PROVIDERS: PCP Internal Medicine; Visit Provider Registered Nurse Diabetes Educator
DX: E11.649 Type 2 diabetes mellitus with hypoglycemia without coma (principal); Z79.4 Long term (current) use of insulin

== ENCOUNTER → 2025-08-18 08:57 | Outpatient (BNVA) | payer OTHER, SELFPAY | PROVIDERS: PCP Internal Medicine; Visit Provider Registered Nurse Diabetes Educator | DX: E11.649 Type 2 diabetes mellitus with hypoglycemia without coma (principal); Z79.4 Long term (current) use of insulin | CPT/HCPCS: 99211 ==

== ENCOUNTER 2025-09-04 09:37 | Outpatient (AMB) | payer OTHER, SELFPAY ==
--- OUTSIDE RECORDS SUMMARY | 2025-09-04 09:39 | XMS_ITS | Clinical Summary ---
Author Organization [facility] ity Address [address] [place] [address] Care Team Providers Care Email Manager Name Role Phone Junior Zayas MD Primary Care Provider [phone] Social History Tobacco Use Types Packs/Day Years [...] age to complete this topic Care Teams Email Manager Relationship Specialty Start Date End Date Junior Zayas MD [address] [place] [address] [address] [facility] [place] [address] PCP - General 05/18/16
--- OUTSIDE RECORDS SUMMARY | 2025-09-04 09:39 | XMS_ITS | Data Portability ---
Author Organization [employer] [facility], [facility] Address [address] [place] [phone] Care Team Providers Care Employee Placement Specialist Name Role Phone HIM CCA OTHER Assessment Encounter Date Assessment Date Assessment LastModified by Organization Details LastModified Time 06/24/2025 06/24/2025 I have reviewed and agree with the assessment and plan as documented by the varnish inspector. I provided real time medical direction for this encounter and was immediately available to provide additional phone based assistance as needed. History as noted by varnish inspector. Pt with history of DM2, c/b peripheral [...] Pt's family has already spoken with her data entry machine operator's office and is arranging follow up visit since they had prescribed the gabapentin, which the pt discontinued d/t adverse effects. Pt is told to increase her tylenol from qd to tid which should give her more prolonged relief from the pain and to f/u with her data entry machine operator to discuss other treatment options with them. [...] Name and Address Organization Details Recorded Time 81206 Motrin medicatio n Not available Not available Not available 06/24/2025 55350 8 RxNorm Not Available [employer] - production 10:22:52 60118 aspirin medicatio n Not available Not available Not available 06/24/2025 1191 RxNorm Not Available [employer] - production 10:22:52 Medications Name Sig Start [...] and Address Organization Details Last Updated DateTime 91896.0 88 g 98.3 [degF] 18 /min 90 /min 157.48 cm 97 % 108/69 mm[Hg] Not Available [employer] - production 12:30:33 Social History None recorded. Functional Status None recorded. Mental Status None recorded. Family History Nothing Reported. Medical History No medical history recorded. Gynecological HistoryNo gynecological history recorded. Obstetrics History GPAL:G 0 P 0 0 0 0 Past Encounters Encounter ID Performer Location Encounter Start Date Encounter Closed Date Diagnosis/Indication Diagnosis SNOMED-CT Code Diagnosis ICD10 Code Diagnosis IMO Codes Diagnosis Note [id number] Yahir Springer MD [facility] [address] [phone] 06/24/2025 12:30:27 06/24/2025 14:57:53 Neuropathic pain 951763576 M79.2 196155 Health Concerns Section Related Observation LastModified by Organization Detai ls LastModified Time None Recorded Concern Status LastModified by Organization Details LastModified Time None Recorded Advance Directives Directive None Recorded Payers Insurance Date Sequence Insurance Name Policy Number Policy Santos Covered Member ID Santos Member ID Guarantor Name 06/24/2025 1 [facility] - DOS ON OR AFTER 2022 - DUAL ELIGIBLE - SKILLED NURSING OPTIONS AND ONE CARE (MEDICARE REPLACEMENT/ADV ANTAGE - HMO) Anahy Hogan [id number] Anahy Hogan Notes Date Note Type Note Provider Name and Address Organization Details Recorded Time 06/24/2025 text/html ROS as noted in the HPI This was a supervised home visit with varnish inspector Beulah Keen. [facility] Nurse Triage Notes (Tatiana Barr): Reason For Request: Pt's daughter reporting pain [...] ..................... ..................... ..................... ..................... ..................... ..................... ............... Brake Repair Supervisor Note From Beulah Keen: Sent to a call for a pt complaining of leg pain. SC8 arrives on scene, pt is alert and oriented, airway is patent. Pt's primary language is Sudanese. Pt's family interprets during visit. Pt has [...] Skin: pink, warm, dry; Family contacts pt's data entry machine operator and speaks to triage nurse to explore possibility for medication change. [facility] consulted and pt is advised to increase Tylenol 1gm TID. Family will continue to follow up with data entry machine operator office for treatment plan. Red flags discussed. Pt has no further questions. ..................... ..................... ..................... ..................... ..................... ..................... ............... [facility] Consulted: Yahir Springer ..................... ..................... ..................... ..................... ..................... ..................... ............... Disposition: Fulfilled Yahir Springer MD [address] [facility],[address], [place], [phone], [employer] 06/24/2025 14:23:43 OBGyn Episode No OBEpisode recorded.
--- OUTSIDE RECORDS SUMMARY | 2025-09-04 09:39 | XMS_ITS | Continuity of Care Document ---
Author Organization [employer] [facility], [facility] Address [address] [place] [phone] Care Team Providers Care Publicity Expert Name Role Phone HIM [facility] OTHER Assessment Encounter Date Assessment Date Assessment LastModified by Organization Details LastModified Time 06/24/2025 06/24/2025 I have reviewed and agree with the assessment and plan as documented by the tabber. I provided real time medical direction for this encounter and was immediately available to provide additional phone based assistance as needed. History as noted by tabber. Pt with history of DM2, c/b peripheral [...] Pt's family has already spoken with her transportation lead's office and is arranging follow up visit since they had prescribed the gabapentin, which the pt discontinued d/t adverse effects. Pt is told to increase her tylenol from qd to tid which should give her more prolonged relief from the pain and to f/u with her transportation lead to discuss other treatment options with [...] Name and Address Organization Details Recorded Time 97935 Motrin medicatio n Not available Not available Not available 06/24/202540684 8 RxNorm Not Available [employer] - production 10:22:52 10666 aspirin medicatio n Not available Not available Not available 06/24/2025 1191 RxNorm Not Available [employer] - production 10:22:52 Medications Name Sig Start [...] and Address Organization Details Last Updated DateTime 84268.0 88 g 98.3 [degF] 18 /min 90 /min 157.48 cm 97 % 108/69 mm[Hg] Not Available [employer] - production 12:30:33 Social History None recorded. Functional Status None recorded. Mental Status None recorded. Family History Nothing Reported. Medical History No medical history recorded. Gynecological HistoryNo gynecological history recorded. Obstetrics History GPAL:G 0 P 0 0 0 0 Past Encounters Encounter ID Performer Location Encounter Start Date Encounter Closed Date Diagnosis/Indication Diagnosis SNOMED-CT Code Diagnosis ICD10 Code Diagnosis IMO Codes Diagnosis Note [id number] Yahir Springer MD [facility] [address] [address] 06/24/2025 12:30:27 06/24/2025 14:57:53 Neuropathic pain 465045439 M79.2 014645 Health Concerns Section Related Observation LastModified by Organization Detai ls LastModified Time None Recorded Concern Status LastModified by Organization Details LastModified Time None Recorded Payers Encounter Date Sequence Insurance Name Policy Number Policy Santos Covered Member ID Santos Member ID Guarantor Name 06/24/2025 1 [facility] - DOS ON OR AFTER 2022 - DUAL ELIGIBLE - SENIOR LIVING OPTIONS AND ONE CARE (MEDICARE REPLACEMENT/ADV ANTAGE - HMO) Anahy Hogan [id number] Anahy Hogan Notes Date Note Type Note Provider Name and Address Organization Details Recorded Time 06/24/2025 text/html ROS as noted in the HPI This was a supervised home visit with tabber Beulah Keen. [facility] Nurse Triage Notes (Tatiana Brar): Reason [...] ..................... ..................... ..................... ..................... ..................... ..................... ............... Grinder Note From Beulah Keen: Sent to a call for a pt complaining of leg pain. SC8 arrives on scene, pt is alert and oriented, airway is patent. Pt's primary language is Greenlandic. Pt's family interprets during visit. Pt has [...] Skin: pink, warm, dry; Family contacts pt's transportation lead and speaks to triage nurse to explore possibility for medication change. [facility] consulted and pt is advised to increase Tylenol 1gm TID. Family will continue to follow up with transportation lead office for treatment plan. Red flags discussed. Pt has no further questions. ..................... ..................... ..................... ..................... ..................... ..................... ............... [facility] Consulted: Yahir Springer ..................... ..................... ..................... ..................... ..................... ..................... ............... Disposition: Fulfilled Yahir Springer MD [address] [facility],[address], [place], [address], [employer] 06/24/2025 14:23:43 OBGyn Episode No OBEpisode recorded.
[2025-09-04 09:41] VITALS: BP 132/80; PULSE 86; TEMP 36.1; O2SAT 98; BMI 30.2
--- NOTE | 2025-09-04 09:41 | A.OFFPC_ITS ---
Vital Signs 09/04/25 09:41 Height 5 ft 2 in Weight 165 lb BMI 30.2 BP 132/80 Blood Pressure Location Lt brachial Position Sitting Pulse 86 Pulse Source Pulse Oximeter Temp 97.0 F Temp Source Temporal Artery Scan Pulse Oximetry (%) 98 Oxygen Delivery Method Room Air Intake Visit Reasons: DM Accompanied by: Daughter Allergies aspirin (Aspirin) Allergy (Mild, Verified 09/04/25 09:41) Abdominal Pain Penicillins Allergy (Mild, Verified 09/04/25 09:41) NAUSEA/STOMACH PAIN hydrochlorothiazide Allergy (Unknown, Verified 09/04/25 09:41) hypokalemia lisinopril Allergy (Unknown, Verified 09/04/25 09:41) ? swelling Jzyisdp-FSM-YsA Reductase Inhibitor Allergy (Unknown, Verified 09/04/25 09:41) Muscle cramps amlodipine Adverse Reaction (Intermediate, Verified 09/04/25 09:41) leg swelling ibuprofen (From Motrin) Adverse Reaction (Unknown, Verified 09/04/25 09:41) Abdominal Pain Tobacco use date assessed: 09/04/25 Fall risk assessment: No Falls in past year Last assessed Fall Risk: 09/04/25 Dental Screening Dental Screen Date: 09/04/25 Did you have a dental visit in the last 12 months?: Yes Did you have a dental problem in the last 6 months where you did not have access to dental care?: No Was dental information given to patient?: Patient has dentist HPI HPI Comments History of Present Illness Details History of Present Illness The patient is a 75-year-old obese female presenting for a follow-up visit for management of multiple chronic conditions. Her medical history is significant for coronary artery disease, hypertension, hypercholesterolemia, and peripheral vascular disease. She follows with cardiology, last seen in May, and is on a regimen including aspirin, metoprolol, amlodipine, losartan, rosuvastatin, and Zetia. Her last cholesterol test in February 2025 showed an LDL of 63, meeting her goal of less than 70. For diabetes mellitus, the patient is followed by endocrinology and was seen in August. Her last hemoglobin A1c was 7.2% in August, with a goal of less than 7.0%. Her treatment regimen includes a continuous glucose monitor, Tresiba 14 units daily, metformin 1000 mg daily, and Mounjaro 15 mg weekly. In terms of respiratory history, the patient has asthma and is followed by pulmonary. A prior CT scan required no further work-up. She is prescribed Wixela for daily control and albuterol for rescue, and reports using the Wixela daily. She received a pneumonia vaccine previously. Gastrointestinal history includes GERD, for which she saw a specialist in July 2025, a hiatal hernia, and gastroparesis. A gastric emptying study in 2022 showed abnormal retention of food after four hours. She takes pantoprazole and has been advised to use MiraLAX and increase fiber. Dermatologically, she had an episode of severe urticaria (hives) attributed to changing soap, which has resolved with medication. She reports chronic runny nose and has a known allergy to pets. Other notable history includes osteoporosis, with her last bone density scan in February 2023, and an overactive bladder. Her last colonoscopy was in October 2024, and her mammogram is currently due. Health Maintenance An order will be placed for a mammogram, as it is currently due. The patient was reminded about her bone density status. All necessary medication refills will be sent to [facility]. Social History - The patient's daughter accompanied her to the visit and assisted with communication. - The patient has exposure to a dog that comes downstairs from an upstairs apartment. - She reports having an allergy to pets. Results - Labs: - Hemoglobin A1c (August): 7.2%. - Lipid Panel (February 2025): LDL 63 mg/dL. - Complete Blood Count (April 2025): No rmal, no anemia. - Basic Metabolic Panel (May 2025) : Normal electrolytes. - Tests and Diagnostics: - Gastric Emptying Study (2022): Abnorma l retention of food in the stomach at four hours. - Chest CT scan: No further workup kb perkins. [facility] Medical History Type 2 diabetes mellitus with cardiac complication Allergy Diabetic neuropathy GERD (gastroesophageal reflux disease) Type 2 diabetes mellitus with hypoglycemia Pulmonary nodules Hiatal hernia Orthopnea Headache Fall NSTEMI (non-ST elevated myocardial infarction) Lower extremity edema HLD (hyperlipidemia) Colon cancer screening Urinary frequency Pleural effusion, right Nocturia more than twice per night Glaucoma Cataract of left eye Renal cyst Right shoulder pain Preop exam for internal medicine On beta kamryn at home Constipation Abdominal bloating Shoulder pain, right Hip pain, left Vitamin D deficiency Osteoporosis Restless leg syndrome Type 2 diabetes mellitus with diabetic polyneuropathy Nasal congestion Chest pain Tubal ligation evaluation Gastroparesis Adrenal adenoma Pulmonary nodule Fracture of toe of left foot Positive MAGGIE (antinuclear antibody) Osteoarthritis of both knees Osteopenia Ulnar neuropathy Asthma Obesity (BMI 30-39.9) Coronary artery disease Hypercholesterolemia Surgical History History of coronary artery stent placement Hx of right cataract extraction History of esophagogastroduodenoscopy (EGD) Hx of colonoscopy History of breast biopsy History of tubal ligation History of laparoscopic cholecystectomy Family History Mother HTN (hypertension) Diabetes Brother Lung cancer Sister Cancer, colon Daughter Uterine cancer Father Prostate cancer Social History Household Members: Spouse Household Members Other:: Granddaughter is INDUSTRIAL MACHINE SYSTEM TECHNICIAN lives upstairs Housing: Other Housing Other:: m2 family house Are you a primary lpn care manager to a significant other at home: No Do you presently have visiting nurse or other home services: No Alcohol intake: never Patient Tobacco Use Status: Former Tobacco user Tobacco use type: Cigarette e-Cigarette/Vaping Use: Never Used Second Hand Smoke Exposure: Yes service: No Current occupational status: retired and disabled Cognitive needs: No Hearing needs: No Vision needs: Yes (glasses) Questionnaire PHQ-9 Over the last 2 weeks, how often have you been bothered by any of the following problems? 1. Little interest or pleasure in doing things: several days 2. Feeling down, depressed, or hopeless: not at all 3. Trouble falling or staying asleep, or sleeping too much: several days 4. Feeling tired or having little energy: several days 5. Poor appetite or overeating: not at all 6. Feeling bad about yourself - or that you are a failure or have let yourself or your family down: not at all 7. Trouble concentrating on things, such as reading the newspaper or watching television: not at all 8. Moving or speaking so slowly that other people could have noticed. Or the opposite - being so fidgety or restless that you have been moving around a lot more than usual: not at all 9. Thoughts that you would be better off or of hurting yourself in some way: not at all Total score: 3 Depression Screening Interpretation: Positive Depression Screening Done: Yes Source: Developed by Drs. Jhon Cedeño, Cara Park, Isaias Michael and colleagues, with an educational joey from [employer]. Thrive Questionnaire Date Thrive assessed: 05/19/25 I am a: Parent/Caregiver What is your living situation today?: I have a steady place to live Within the past 12 months, did the food you bought not last and you didn't have the money to get more?: I choose not to answer this question Within the past 12 months, did you worry whether your food would run out before you got money to buy more?: Never true Do you have trouble paying for medicines?: No Do you have trouble getting transportation to medical appointments?: No Do you have trouble paying your heating and electricity bill?: No Do you have trouble taking care of your child, family member or friend?: No Do you have trouble with day-to-day activities such as bathing, preparing meals, shopping, managing finances, etc.?: I choose not to answer this question Are you currently unemployed and looking for a job?: No Are you interested in more education?: No Currently or been in a relationship where the following occur: I choose not to answer THRIVE Score: 0 AUDIT C Alcohol Use Questionnaire (AUDIT-C) 1. How often do you have a drink containing alcohol?: Never 3. How often do you have six or more drinks on one occasion?: Never Total Score: 0 QUYNH-7 AMB Questionnaire QUYNH-7 Date QUYNH - 7 assessed: 10/21/24 Feeling nervous, anxious, or on edge: 0 = Not at all Not being able to stop or control worryin = Not at all Worrying too much about different things: 0 = Not at all Trouble relaxin = Not at all Being so restless that it is hard to sit still: 0 = Not at all Becoming easily annoyed or irritable: 0 = Not at all Feeling afraid as if something awful might happen: 0 = Not at all Total QUYNH-7 score (0-4 normal; 5-9 mild; 10-14 moderate; 15-21 severe): 0 Source: Developed by Drs. Jhon Cedeño, Cara Park, Isaias Michael and colleagues, with an educational joey from [employer]. Review of Systems Narrative Review of Systems - Respiratory: Reports a persistent runny and stuffy nose. - Gastrointestinal: Denies heartburn. - Musculoskeletal: Reports back pain, particularly when sleeping and upon rising from bed. - Integumentary/Allergy: Denies current itching but reports a history of severe hives. - She has a known allergy to pets. Physical exam (Primary Care) Vital Signs: Last Vital Signs Temp 97.0 F 09/04/25 09:41 Pulse 86 09/04/25 09:41 BP 132/80 09/04/25 09:41 Pulse Ox 98 09/04/25 09:41 Oxygen Delivery Method Room Air 09/04/25 09:41 BMI result Body Mass Index 30.2 Tobacco/Smoking Status: Tobacco use Status Tobacco use date assessed 09/04/25 09/04/25 09:45 Patient Tobacco Use Status Former Tobacco user 09/04/25 09:45 Tobacco use type Cigarette 09/04/25 09:45 e-Cigarette/Vaping Use Never Used 09/04/25 09:45 PHQ-9: PHQ-9 Score PHQ-9: Total score 3 09/04/25 10:02 Depression Screening Interpretation: Positive Thrive Assessment: Date of Thrive Assessment Date Thrive assessed 05/19/25 09/04/25 09:45 Currently or been in a relationship where the following occur: I choose not to answer Narrative Physical Exam - A formal physical examination was not documented as being performed during the visit. Const General: alert; No acute distress Eyes Conjunctivae: conjunctivae normal Resp Auscultation: clear to auscultation bilaterally Cardio Rate: regular rate Rhythm: regular rhythm GI Inspection: Yes normal to inspection Extrem General: Yes normal to inspection and No edema Coding Level of Care Code Est Pt Level 4 (21702) Add On Problem Visit Only Diagnoses Type 2 diabetes mellitus with hyperglycemia, unspecified whether extermination inspector insulin use E11.65 Diabetes mellitus fpc insulin use: unspecified extermination inspector insulin use status Primary hypertension I10 Hypertension type: primary hypertension Coronary artery disease involving [place] coronary artery of [place] heart without angina pectoris I25.10 Associated angina: without angina Coronary Disease-Associated Artery/Lesion type: [place] artery [place] vs. transplanted heart: [place] heart Hypercholesterolemia E78.00 Osteopenia M85.80 Gastroesophageal reflux disease without esophagitis K21.9 Esophagitis presence: without esophagitis Moderate persistent asthma without complication J45.40 Asthma complication type: uncomplicated Asthma persistence: persistent Asthma severity: moderate Assessment & Plan Assessment & Plan (1) Type 2 diabetes mellitus with hyperglycemia: Comment: Angel Guerra Code(s): E11.65 - Type 2 diabetes mellitus with hyperglycemia Category: Medical Qualifiers: Diabetes mellitus extermination inspector insulin use: unspecified extermination inspector insulin use status Qualified Code(s): E11.65 - Type 2 diabetes mellitus with hyperglycemia Plan: Decrease the amount of carbohydrate intake, pasta, bread, rice and potatoes are all sugar and that is aside from all the sweet stuff, remember that fruits are good but they are Sweet also. Hemoglobin A1c goal of less than 7.0. Last hemoglobin A1c 7.2 patient is being followed up by Endocrinology on Tresiba at 14 units once a day metformin a 1000 mg once a day Mounjaro 15 mg once a week (2) Hypertension: Code(s): I10 - Essential (primary) hypertension Category: Medical Qualifiers: Hypertension type: primary hypertension Qualified Code(s): I10 - Essential (primary) hypertension Plan: Continue with blood pressure medication. Decrease salt intake and exercise continue to follow-up with cardiology on metoprolol 100 mg twice a day losartan 100 mg once a day (3) Coronary artery disease: Comment: echo normal LV 60-65% June 2019, May 2023 distal LAD drug-eluting stent Code(s): I25.10 - Atherosclerotic heart disease of [place] coronary artery without angina pectoris Category: Medical Qualifiers: Associated angina: without angina Coronary Disease-Associated Artery/Lesion type: [place] artery [place] vs. transplanted heart: [place] heart Qualified Code(s): I25.10 - Atherosclerotic heart disease of [place] coronary artery without angina pectoris Plan: Control the cholesterol, weight, blood pressure, diabetes continue with aspirin 81 mg once a day (4) Hypercholesterolemia: Code(s): E78.00 - Pure hypercholesterolemia, unspecified Category: Medical Plan: Avoid fried foods, chicken skin, eggs, butter margarine, pastries and meat. Be it pork or beef they have a lot of cholesterol February 2025 last blood work LDL goal of less than 70 and triglyceride of less than 150 patient is on rosuvastati n (5) Osteopenia: Comment: October 2020 Code(s): M85.80 - Other specified disorders of bone density and structure, unspecified site Category: Medical Plan: Patient is reminded about bone density (6) GERD (gastroesophageal reflux disease): Code(s): K21.9 - Gastro-esophageal reflux disease without esophagitis Category: Medical Qualifiers: Esophagitis presence: without esophagitis Qualified Code(s): K21.9 - Gastro-esophageal reflux disease without esophagitis Plan: Avoid the foods that causes that usually spicy foods, tomato products, juices, coffee, soda and foods that your sensitive to. After eating do not lie down, allow 3-4 hours before in lie down. And keep the head of bed above 30 degrees to avoid the acid from going up. (7) Asthma: Code(s): J45.909 - Unspecified asthma, uncomplicated Category: Medical Qualifiers: Asthma complication type: uncomplicated Asthma persistence: persistent Asthma severity: moderate Qualified Code(s): J45.40 - Moderate persistent asthma, uncomplicated Plan: Patient follows up with Pulmonary on Wixela and albuterol Plan Plan Patient was informed and verbally consented to the use of an ambient scribe for clinic note documentation during this visit. 1. Diabetes Mellitus, Type 2 The patient's last hemoglobin A1c was 7.2%, which is approaching the goal of less than 7.0%. She will continue to follow with endocrinology. Continue current medications: Tresiba 14 units once daily, metformin 1000 mg once daily, and Mounjaro 15 mg once weekly. 2. Hypertension The patient will continue to follow up with cardiology for blood pressure management. Continue current antihypertensive medications: metoprolol 100 mg twice a day, losartan 100 mg once a day, and amlodipine. 3. Coronary Artery Disease Continue aspirin 81 mg once a day for secondary prevention. Continue follow up with cardiology. 4. Hypercholesterolemia The patient's LDL of 63 meets the goal of less than 70 mg/dL. Continue current therapy with rosuvastatin and Zetia. No new blood work is required at this time. 5. Asthma The patient will continue to follow up with her hot knife foxing cutter. Educated on the use of Wixela as a daily controller medication and albuterol for rescue use. The importance of rinsing her mouth after using Wixela was reinforced. Continue Singulair. 6. Gerd With Hiatal Hernia Given her diagnosis of hiatal hernia and delayed gastric emptying, lifestyle modifications were advised. Recommended to avoid lying down for at least four hours after meals and to elevate the head of the bed with pillows. Continue pantoprazole as prescribed. 7. Musculoskeletal Back Pain For her back pain, which occurs mainly when sleeping or rising from bed, stretching exercises and heat application were recommended. The patient declined a referral for physical therapy at this time. 8. Allergic Rhinitis Due to a persistent runny nose and a known pet allergy, continued use of Zyrtec was advised. Discussion Notes I reviewed the patient's extensive medical history and management with multiple specialists. We discussed her asthma management, and I clarified the roles of her Wixela controller inhaler and albuterol rescue inhaler, reinforcing the need for daily use and mouth rinsing with the former. I explained the findings of her 2022 gastric emptying study, which showed delayed emptying, and connected this to her GERD symptoms, advising her to wait four hours after eating before lying down and to use extra pillows to elevate her head. We reviewed her recent lab results, noting her hemoglobin A1c of 7.2 demonstrates improvement but has not yet met the goal of less than 7.0. I confirmed her cholesterol is well-controlled. We also discussed the likely cause of her past hives being a change of soap, and the potential link between her stuffy nose and her pet allergy. For her new complaint of back pain, I recommended conservative measures such as heat and stretching, and she declined physical therapy. I confirmed that all pr escription refills will be sent to her preferred pharmacy. Patient Instructions - Continue to take your medications as prescribed by your team of doctors, including those for diabetes, blood pressure, cholesterol, and heart disease. - Use your Wixela inhaler every day to control your asthma, and use the albuterol inhaler only if you feel short of breath. - Make sure to rinse your mouth with water after using the Wixela inhaler. - To help with acid reflux, wait at least four hours after eating your last meal before you lie down or go to sleep. - Try sleeping with extra pillows to keep your head propped up, which can also help with reflux. - For your back pain, you can try gentle stretches and using a heating pad. - Continue taking Zyrtec for your runny nose and allergies. - We will put in an order for you to get your mammogram screening, as it is now due. - Your prescription refills will be sent to [facility]. Medications: Refilled cetirizine (Zyrtec) 10 mg PO DAILY 30 caps 12RF allergy symptoms losartan 100 mg PO DAILY 90 tabs 2RF I10 - Essential (primary) hypertension metoprolol tartrate 100 mg PO BID 180 tabs 4RF I10 - Essential (primary) hypertension rosuvastatin 20 mg PO DAILY 90 tabs 2RF E78.00 - Pure hypercholesterolemia, unspecified
== END 2025-09-04 10:18 | disposition home or self-care (01) ==
LOC: HO.HMCH 09:38
PROVIDERS: PCP Internal Medicine; Visit Provider Internal Medicine
DX: E11.65 Type 2 diabetes mellitus with hyperglycemia (principal); I10 Essential (primary) hypertension; I25.10 Atherosclerotic heart disease of native coronary artery without angina pectoris; E78.00 Pure hypercholesterolemia, unspecified; M85.80 Other specified disorders of bone density and structure, unspecified site; K21.9 Gastro-esophageal reflux disease without esophagitis; J45.40 Moderate persistent asthma, uncomplicated

== ENCOUNTER → 2025-09-04 09:37 | Outpatient (BNVA) | payer OTHER, SELFPAY | PROVIDERS: PCP Internal Medicine; Visit Provider Internal Medicine | DX: E11.65 Type 2 diabetes mellitus with hyperglycemia (principal); I10 Essential (primary) hypertension; E78.00 Pure hypercholesterolemia, unspecified; M85.80 Other specified disorders of bone density and structure, unspecified site; K21.9 Gastro-esophageal reflux disease without esophagitis; J45.40 Moderate persistent asthma, uncomplicated | CPT/HCPCS: 96127; 99212 ==